=== PATIENT | male | born 1955 ===

== ENCOUNTER 2021-03-08 14:17 | Inpatient (IN) | payer MEDICARE ==
[2021-03-08] MEDS ORDERED: SODIUM CHLORIDE 0.9% 1000 ML 1,000 ML ONE (14:19)
[2021-03-08] MEDS: ETOMIDATE 20 MG/10 ML INJ IV ONE ×2 (14:27→15:00)
[2021-03-08] MEDS ORDERED: cefTRIAXone/NS 1 GM/50 ML 1 GM/50 ML BAG IV ONE (14:33)
[2021-03-08] MEDS ORDERED: ACETAMINOPHEN 650 MG RECT SUPP PR ONE (14:33)
[2021-03-08] MEDS ORDERED: AZITHROMYCIN/NS 500 MG/250 ML 500 MG/250 ML BAG IV ONE (14:33)
[2021-03-08] MEDS ORDERED: MINERAL OIL/PETROLATUM, WHITE OPHTH OINT 3.5 GM OU PRN (14:33)
[2021-03-08] MEDS ORDERED: LIP THERAPY VASELINE TP PRN (14:33)
[2021-03-08] MEDS ORDERED: fentaNYL 100 MCG/2 ML INJ IV PRN (14:33)
[2021-03-08] MEDS ORDERED: dexAMETHasone 4 MG/ML VIAL IV ONE (14:33)
[2021-03-08] MEDS ORDERED: SODIUM CHLORIDE 0.9% 1000 ML IV SOLN IV ONE (14:33)
[2021-03-08] MEDS ORDERED: ROCURONIUM 50 MG/5 ML INJ IV ONE ×2 (14:43→17:51)
[2021-03-08] MEDS ORDERED: ALBUTEROL 2.5 MG/3 ML NEBU IH ONE (14:44)
[2021-03-08] MEDS ORDERED: IPRATROPIUM 0.02% NEBU 2.5 ML IH ONE (14:44)
--- NOTE | 2021-03-08 14:53 | Emergency Department Report ---
ED General Adult HPI - General Chief complaint: Dyspnea/Respdistress Stated complaint: Patient altered PUI?: Yes Time Seen by Provider: 03/08/21 14:32 Source: patient, EMS (Verbal report received from emergency medical services. EMS documentation not available at time of chart dictation ), RN notes reviewed Mode of arrival: Stretcher Limitations: Altered Mental Status, Physical Limitation - History of Present Illness Initial comments: The patient was evaluated in the emergency department for symptoms described in the history of present illness. He/she was evaluated in the context of the global COVID-19 pandemic, which necessitated consideration that the patient might be at risk for infection with the virus that causes COVID-19. Institutional protocols and algorithms that pertain to the evaluation of patients at risk for COVID-19 are in a state of rapid change based on information released by regulatory bodies including the CDC and federal and state organizations. These policies and algorithms were followed during the patient's care in the emergency department. Please note that these policies, procedures and recommendations changed on a rapid basis. During the entire history and physical examination, I had on complete present protective equipment. The patient is an elderly gentleman, whose name is not explicitly known, identity not known at this time, who appears to be of descent, aged mid to late 60s/early 70s, brought to the hospital by emergency medical services with an EMS articulated complaint of altered mental status and respiratory failure. History obtained from EMS entirely as this patient is altered. The patient is not accompanied by friends or family at this time for collateral information or additional information. As per verbal report from EMS, 911 was activated because the patient was reportedly walking around at an apartment complex and neighbors were concerned. It is not known who called t 911. EMS reports a fever of 102.3 temporally, and Accu-Chek of 218. They also report the patient was hypoxic, required rke-udqby-jhjh ventilation in the field, and they felt that the patient had diminished breath sounds in the left hemithorax, and there was a concern for pneumothorax on the left-hand side. Therefore, EMS performed a decompression of the left hemithorax in the field. Upon arrival to this emergency room, EMS placed chest tube/catheter became dislodged. The patient is awake but altered, and has gasping respirations. He is placed on 15 L nasal cannula oxygen, and also received simultaneous txm-skdeu-zfqe ventilation. A stat chest x-ray showed no obvious left-sided pneumothorax. Given altered mental status and respiratory failure, history of hypoxia requiring yon-oxfgi-doeh ventilation, patient not a candidate for noninvasive therapy, and is emergently and administratively consented by myself for intubation. He is induced with 20 mg of etomidate and 100 mg of rocuronium. Using an S4 video laryngoscope, a 7.5 endotracheal tube was easily inserted, under direct visualization. The tube was noted to pass to the trachea easily, he has appropriate breath sounds bilaterally, although diminished in all lung leone, has appropriate end-tidal capnography color change, and a postprocedure x-ray demonstrates appropriate endotracheal tube placement without evidence of obvious pneumothorax. Patient found to be 49 kg, code sepsis called overhead, patient to be medicated empirically with steroids, albuterol, Atrovent, ceftriaxone and azithromycin. suspect this patient has COPD, therefore, diaphragmatic excursion is performed, and excess air has been pushed out of the patient's lungs, to avoid breath stacking. Contacted critical care physician on-call, Dr. Inman, have discussed the patient's current history, physical, overall clinical impression and plan of care. Patient be ventilated according to lung protective ventilator strategy. If CT scan of the chest demonstrates small pneumothorax, we will place a Heimlich valve. Critical care will follow in consultation. At the moment, the patient is not accompanied by friends or family at this time for collateral information, additional information. Blood pressure systolic 105. -: unknown - Related Data Allergies Allergy/AdvReac Type Severity Reaction Status Date / Time Unable to Assess Allergy Verified 03/08/21 14:37 ED Review of Systems ROS: Stated complaint: RESP DISTRESS Other details as noted in HPI Comment: Unobtainable due to pts medical conditions ED Past Medical Hx - Social History Smoking Status: Unknown if ever smoked ED Physical Exam - General Limitations: Altered Mental Status General appearance: lethargic, in distress - Eye Eye exam: Present: normal appearance - ENT ENT exam: Present: mucous membranes dry, normal external ear exam - Neck Neck exam: Present: normal inspection. Absent: tenderness, meningismus - Respiratory Respiratory exam: Present: respiratory distress, rales, rhonchi, accessory muscle use, decreased breath sounds, other (The left anterior hemithorax, mid nipple line, approximately sixth rib, there is a skin abrasion/ecchymosis, where needle catheter has dislodged.). Absent: stridor - Cardiovascular Cardiovascular Exam: Present: normal rhythm, tachycardia, normal heart sounds. Absent: bradycardia, irregular rhythm, systolic murmur, diastolic murmur, rubs, gallop - GI/Abdominal GI/Abdominal exam: Present: soft. Absent: distended, tenderness, guarding, rebound, rigid, pulsatile mass - Rectal Rectal exam: Present: normal inspection - exam: Present: normal inspection - Extremities Exam Extremities exam: Present: normal inspection, other (2+ pulses noted in the bila teral upper and lower extremities. There is no palpable cord. negative Homans sign. Muscular compartments are soft. The pelvis is stable.) - Back Exam Back exam: Present: normal inspection. Absent: tenderness, CVA tenderness (R), CVA tenderness (L), paraspinal tenderness, vertebral tenderness - Neurological Exam Neurological exam: Present: altered, other (Prior to intubation, patient noted to be moving 4 extremities.) - Psychiatric Psychiatric exam: Present: anxious - Skin Skin exam: Present: warm, dry, intact, normal color. Absent: rash ED Course Vital Signs 03/08/21 03/08/21 03/08/21 14:22 14:30 14:46 Temperature Pulse Rate 140 H 114 H Respiratory 29 H 20 Rate Blood Pressure 98/65 184/68 Blood Pressure [Left] O2 Sat by Pulse 96 100 99 Oximetry 03/08/21 03/08/21 03/08/21 15:00 15:06 15:10 Temperature 101.4 F H Pulse Rate 109 H 107 H 122 H Respiratory 19 17 Rate Blood Pressure 190/76 Blood Pressure 189/91 [Left] O2 Sat by Pulse 100 100 100 Oximetry 03/08/21 03/08/21 03/08/21 15:30 15:46 16:10 Temperature Pulse Rate 117 H 108 H 109 H Respiratory 24 19 Rate Blood Pressure 205/81 143/80 143/80 Blood Pressure [Left] O2 Sat by Pulse 100 99 Oximetry 03/08/21 03/08/21 03/08/21 16:16 16:30 16:46 Temperature Pulse Rate 107 H 106 H 106 H Respiratory 20 20 20 Rate Blood Pressure 114/78 120/70 143/80 Blood Pressure [Left] O2 Sat by Pulse 100 100 100 Oximetry 03/08/21 03/08/2121 17:00 17:16 17:30 Temperature Pulse Rate 106 H 101 H 99 H Respiratory 20 20 20 Rate Blood Pressure 113/67 117/76 126/76 Blood Pressure [Left] O2 Sat by Pulse 100 100 100 Oximetry 03/08/21 03/08/21 03/08/21 17:46 18:00 18:16 Temperature Pulse Rate 94 H 96 H 89 Respiratory 20 20 20 Rate Blood Pressure 128/74 121/72 126/76 Blood Pressure [Left] O2 Sat by Pulse 100 100 100 Oximetry 03/08/21 03/08/21 03/08/21 18:30 18:43 18:46 Temperature 98.9 F Pulse Rate 86 84 Respiratory 20 20 Rate Blood Pressure 128/68 138/74 Blood Pressure [Left] O2 Sat by Pulse 100 100 Oximetry 03/08/21 03/08/21 03/08/21 19:00 19:10 19:16 Temperature Pulse Rate 84 83 85 Respiratory 20 20 Rate Blood Pressure 112/63 107/62 Blood Pressure [Left] O2 Sat by Pulse 100 100 100 Oximetry 03/08/21 03/08/21 03/08/21 19:30 19:46 20:00 Temperature Pulse Rate 86 86 86 Respiratory 20 20 20 Rate Blood Pressure 113/61 108/61 109/62 Blood Pressure [Left] O2 Sat by Pulse 100 100 100 Oximetry 03/08/21 03/08/21 03/08/21 21:50 21:54 22:06 Temperature 98.4 F Pulse Rate 86 86 Respiratory Rate Blood Pressure 101/61 Blood Pressure [Left] O2 Sat by Pulse 100 Oximetry - Reevaluation(s) Reevaluation #1: 03/08/21 14:53 Differential diagnosis, including but not limited to: COPD exacerbation, sepsis, bacteremia, viremia, pneumonia, urinary tract infection, toxic encephalopathy metabolic encephalopathy Status post chest tube placement, status post chest tube removal, residual pneumothorax Assessment and plan: Elderly gentleman with acute respiratory failure probable sepsis, manifested by tachycardia, dry mucous membranes, and fever, requiring intubation for airway protection during the COVID-[address] patient on lung protective ventilator strategy. Resuscitate with fluids, steroids, antibiotics as per our sepsis protocol. Maintain patient on isolation precautions, send Covid laboratory studies to risk verify for Covid cytokine storm. Critical care consulted. Obtain CT scan of the brain, cervical spine, and chest. Reassess after data points have resulted. Admit this patient to the medical service once diagnostics have resulted if no condition is identified that would require transfer. 03/08/21 16:47 CT scan of the brain and cervical spine negative for acute traumatic pathology. CT scan of the chest shows multi lobar pneumonia, and small left-sided pneumothorax. Pneumothorax is not visualized on x-ray of the chest, and this is likely secondary to EMS placing catheter in the field. Inflammatory markers, lactic acid elevated, consistent with acute infectious pathology. I have recontacted Dr. Inman, critical care physician, and have discussed the p atient's updated history, laboratory studies, and CT scan findings. Advises that chest tube is not necessary at this time. Hospital physician, Dr. Brian Jacobsen to admit to ICU Incidental AAA of 4.5 cm less than 6 cm may be followed up as an outpatient once medically stabilized. - Intubation Time Out Performed: No (Emergency situation) Sedative: Etomidate Mg Given: 20 Paralytic: Rocuronium Mg Given: 100 Laryngoscope: none Size: 4 Assist Device Used: fiberoptic device ET Tube Size: 7.5 Tube Secured Depth (cm): 23 Tube Secured Location: teeth Tube Placement Confirmation: visualized tube passing t, equal breath sounds bilat, no breath sounds over epi, confirmation by capnometr Patient Tolerated Procedure: well Intubation Complications: none ED Medical Decision Making - Lab Data Result diagrams: 03/09/21 06:18 03/09/21 06:18 Vital Signs 03/08/21 03/08/21 03/08/21 14:22 14:30 14:46 Temperature Pulse Rate 140 H 114 H Respiratory 29 H 20 Rate Blood Pressure 98/65 184/68 Blood Pressure [Left] O2 Sat by Pulse 96 100 99 Oximetry 03/08/21 03/08/21 03/08/21 15:00 15:06 15:30 Temperature 101.4 F H Pulse Rate 109 H 107 H 117 H Respiratory 19 17 24 Rate Blood Pressure 190/76 205/81 Blood Pressure 189/91 [Left] O2 Sat by Pulse 100 100 100 Oximetry 03/08/21 03/08/21 03/08/21 15:46 16:10 16:16 Temperature Pulse Rate 108 H 109 H 107 H Respiratory 19 20 Rate Blood Pressure 143/80 143/80 114/78 Blood Pressure [Left] O2 Sat by Pulse 99 100 Oximetry Lab Results 03/08/21 03/08/21 03/08/21 Range/Units 15:12 15:49 15:49 WBC 8.5 (4.5-11.0) K/mm3 RBC 4.19 (3.65-5.03) M/mm3 Hgb 13.1 (11.8-15.2) gm/dl Hct 39.6 (35.5-45.6) % MCV 95 H (84-94) fl MCH 31 (28-32) pg MCHC 33 (32-34) % RDW 12.8 L (13.2-15.2) % Plt Count 178 (140-440) K/mm3 Lymph % (Auto) 5.1 L (13.4-35.0) % [place] % (Auto) 8.6 H (0.0-7.3) % Eos % (Auto) 0.0 (0.0-4.3) % Baso % (Auto) 0.2 (0.0-1.8) % Lymph # (Auto) 0.4 L (1.2-5.4) K/mm3 [place] # (Auto) 0.7 (0.0-0.8) K/mm3 Eos # (Auto) 0.0 (0.0-0.4) K/mm3 Baso # (Auto) 0.0 (0.0-0.1) K/mm3 Seg Neutrophils % 86.1 H (40.0-70.0) % Seg Neutrophils # 7.3 (1.8-7.7) K/mm3 PT 14.6 (12.2-14.9) Sec. INR 1.09 (0.87-1.13) APTT 37.1 H (24.2-36.6) Sec. D-Dimer 832.06 H (0-234) ng/mlDDU ABG pH 7.478 H (7.350-7.450) pH Units ABG pCO2 43.0 mm Hg ABG pO2 381.9 H (80.0-90.0) mm Hg ABG HCO3 31.2 H (20.0-26.0) mmol/L ABG O2 Saturation 99.6 H (95.0-99.0) % ABG O2 Content 18.9 (0.0-44) ABG Base Excess 6.9 H (-2.0-3.0) mmol/L ABG Hemoglobin 13.0 L (14.0-18.0) gm/dl ABG Carboxyhemoglobin 1.5 (0.0-5.0) % ABG Methemoglobin 0.6 (0.0-1.5) % Oxyhemoglobin 97.5 (95.0-99.0) % FiO2 100 % Sodium (137-145) mmol/L Potassium (3.6-5.0) mmol/L Chloride (98-107) mmol/L Carbon Dioxide (22-30) mmol/L Anion Gap mmol/L BUN (9-20) mg/dL Creatinine (0.8-1.3) mg/dL Estimated GFR ml/min BUN/Creatinine Ratio % Glucose (75-100) mg/dL Lactic Acid (0.7-2.0) mmol/L Calcium (8.4-10.2) mg/dL Ferritin (30.0-300.0) ng/mL Total Bilirubin (0.1-1.2) mg/dL AST (5-40) units/L ALT (7-56) units/L Alkaline Phosphatase (35-129) units/L Ammonia (25-60) umol/L Lactate Dehydrogenase (91-180) units/L C-Reactive Protein (0.00-1.30) mg/dL Total Protein (6.3-8.2) g/dL Albumin (3.9-5) g/dL Albumin/Globulin Ratio % TSH (0.270-4.200) mlU/mL Salicylates (2.8-20.0) mg/dL Acetaminophen (10.0-30.0) ug/mL Blood Type 03/08/21 03/08/21 03/08/21 Range/Units 15:49 15:49 15:49 WBC (4.5-11.0) K/mm3 RBC (3.65-5.03) M/mm3 Hgb (11.8-15.2) gm/dl Hct (35.5-45.6) % MCV (84-94) fl MCH (28-32) pg MCHC (32-34) % RDW (13.2-15.2) % Plt Count (140-440) K/mm3 Lymph % (Auto) (13.4-35.0) % [place] % (Auto) (0.0-7.3) % Eos % (Auto) (0.0-4.3) % Baso % (Auto) (0.0-1.8) % Lymph # (Auto) (1.2-5.4) K/mm3 [place] # (Auto) (0.0-0.8) K/mm3 Eos # (Auto) (0.0-0.4) K/mm3 Baso # (Auto) (0.0-0.1) K/mm3 Seg Neutrophils % (40.0-70.0) % Seg Neutrophils # (1.8-7.7) K/mm3 PT (12.2-14.9) Sec. INR (0.87-1.13) APTT (24.2-36.6) Sec. D-Dimer (0-234) ng/mlDDU ABG pH (7.350-7.450) pH Units ABG pCO2 mm Hg ABG pO2 (80.0-90.0) mm Hg ABG HCO3 (20.0-26.0) mmol/L ABG O2 Saturation (95.0-99.0) % ABG O2 Content (0.0-44) ABG Base Excess (-2.0-3.0) mmol/L ABG Hemoglobin (14.0-18.0) gm/dl ABG Carboxyhemoglobin (0.0-5.0) % ABG Methemoglobin (0.0-1.5) % Oxyhemoglobin (95.0-99.0) % FiO2 % Sodium 134 L (137-145) mmol/L Potassium 4.5 (3.6-5.0) mmol/L Chloride 89.7 L (98-107) mmol/L Carbon Dioxide 32 H (22-30) mmol/L Anion Gap 17 mmol/L BUN 47 H (9-20) mg/dL Creatinine 1.2 (0.8-1.3) mg/dL Estimated GFR 54 ml/min BUN/Creatinine Ratio 39 % Glucose 150 H (75-100) mg/dL Lactic Acid (0.7-2.0) mmol/L Calcium 9.2 (8.4-10.2) mg/dL Ferritin (30.0-300.0) ng/mL Total Bilirubin 0.60 (0.1-1.2) mg/dL AST 24 (5-40) units/L ALT 11 (7-56) units/L Alkaline Phosphatase 54 (35-129) units/L Ammonia 22.0 L (25-60) umol/L Lactate Dehydrogenase (91-180) units/L C-Reactive Protein (0.00-1.30) mg/dL Total Protein 7.3 (6.3-8.2) g/dL Albumin 3.2 L (3.9-5) g/dL Albumin/Globulin Ratio 0.8 % TSH 2.030 (0.270-4.200) mlU/mL Salicylates (2.8-20.0) mg/dL Acetaminophen (10.0-30.0) ug/mL Blood Type 03/08/21 03/08/21 03/08/21 Range/Units 15:49 15:49 15:49 WBC (4.5-11.0) K/mm3 RBC (3.65-5.03) M/mm3 Hgb (11.8-15.2) gm/dl Hct (35.5-45.6) % MCV (84-94) fl MCH (28-32) pg MCHC (32-34) % RDW (13.2-15.2) % Plt Count (140-440) K/mm3 Lymph % (Auto) (13.4-35.0) % [place] % (Auto) (0.0-7.3) % Eos % (Auto) (0.0-4.3) % Baso % (Auto) (0.0-1.8) % Lymph # (Auto) (1.2-5.4) K/mm3 [place] # (Auto) (0.0-0.8) K/mm3 Eos # (Auto) (0.0-0.4) K/mm3 Baso # (Auto) (0.0-0.1) K/mm3 Seg Neutrophils % (40.0-70.0) % Seg Neutrophils # (1.8-7.7) K/mm3 PT (12.2-14.9) Sec. INR (0.87-1.13) APTT (24.2-36.6) Sec. D-Dimer (0-234) ng/mlDDU ABG pH (7.350-7.450) pH Units ABG pCO2 mm Hg ABG pO2 (80.0-90.0) mm Hg ABG HCO3 (20.0-26.0) mmol/L ABG O2 Saturation (95.0-99.0) % ABG O2 Content (0.0-44) ABG Base Excess (-2.0-3.0) mmol/L ABG Hemoglobin (14.0-18.0) gm/dl ABG Carboxyhemoglobin (0.0-5.0) % ABG Methemoglobin (0.0-1.5) % Oxyhemoglobin (95.0-99.0) % FiO2 % Sodium (137-145) mmol/L Potassium (3.6-5.0) mmol/L Chloride (98-107) mmol/L Carbon Dioxide (22-30) mmol/L Anion Gap mmol/L BUN (9-20) mg/dL Creatinine (0.8-1.3) mg/dL Estimated GFR ml/min BUN/Creatinine Ratio % Glucose (75-100) mg/dL Lactic Acid (0.7-2.0) mmol/L Calcium (8.4-10.2) mg/dL Ferritin (30.0-300.0) ng/mL Total Bilirubin (0.1-1.2) mg/dL AST (5-40) units/L ALT (7-56) units/L Alkaline Phosphatase (35-129) units/L Ammonia (25-60) umol/L Lactate Dehydrogenase (91-180) units/L C-Reactive Protein (0.00-1.30) mg/dL Total Protein (6.3-8.2) g/dL Albumin (3.9-5) g/dL Albumin/Globulin Ratio % TSH (0.270-4.200) mlU/mL Salicylates 5.6 (2.8-20.0) mg/dL Acetaminophen 5.0 L (10.0-30.0) ug/mL Blood Type B POSITIVE 03/08/21 03/08/21 03/08/21 Range/Units 15:49 15:49 15:49 WBC (4.5-11.0) K/mm3 RBC (3.65-5.03) M/mm3 Hgb (11.8-15.2) gm/dl Hct (35.5-45.6) % MCV (84-94) fl MCH (28-32) pg MCHC (32-34) % RDW (13.2-15.2) % Plt Count (140-440) K/mm3 Lymph % (Auto) (13.4-35.0) % [place] % (Auto) (0.0-7.3) % Eos % (Auto) (0.0-4.3) % Baso % (Auto) (0.0-1.8) % Lymph # (Auto) (1.2-5.4) K/mm3 [place] # (Auto) (0.0-0.8) K/mm3 Eos # (Auto) (0.0-0.4) K/mm3 Baso # (Auto) (0.0-0.1) K/mm3 Seg Neutrophils % (40.0-70.0) % Seg Neutrophils # (1.8-7.7) K/mm3 PT (12.2-14.9) Sec. INR (0.87-1.13) APTT (24.2-36.6) Sec. D-Dimer (0-234) ng/mlDDU ABG pH (7.350-7.450) pH Units ABG pCO2 mm Hg ABG pO2 (80.0-90.0) mm Hg ABG HCO3 (20.0-26.0) mmol/L ABG O2 Saturation (95.0-99.0) % ABG O2 Content (0.0-44) ABG Base Excess (-2.0-3.0) mmol/L ABG Hemoglobin (14.0-18.0) gm/dl ABG Carboxyhemoglobin (0.0-5.0) % ABG Methemoglobin (0.0-1.5) % Oxyhemoglobin (95.0-99.0) % FiO2 % Sodium (137-145) mmol/L Potassium (3.6-5.0) mmol/L Chloride (98-107) mmol/L Carbon Dioxide (22-30) mmol/L Anion Gap mmol/L BUN (9-20) mg/dL Creatinine (0.8-1.3) mg/dL Estimated GFR ml/min BUN/Creatinine Ratio % Glucose 150 H (75-100) mg/dL Lactic Acid 3.40 H* (0.7-2.0) mmol/L Calcium (8.4-10.2) mg/dL Ferritin 1373.0 H (30.0-300.0) ng/mL Total Bilirubin (0.1-1.2) mg/dL AST (5-40) units/L ALT (7-56) units/L Alkaline Phosphatase (35-129) units/L Ammonia (25-60) umol/L Lactate Dehydrogenase 209 H (91-180) units/L C-Reactive Protein 24.00 H (0.00-1.30) mg/dL Total Protein (6.3-8.2) g/dL Albumin (3.9-5) g/dL Albumin/Globulin Ratio % TSH (0.270-4.200) mlU/mL Salicylates (2.8-20.0) mg/dL Acetaminophen (10.0-30.0) ug/mL Blood Type - EKG Data -: EKG Interpreted by Hi Rate: tachycardia - EKG Data When compared to previous EKG there are: previous EKG unavailable 03/08/21 14:56 EKG #1, interpreted at 14: 41 Sinus rhythm, tachycardia, rate 119 bpm. QTC prolonged, 470 ms, atrial enlargement, and left ventricular hypertrophy. Abnormal EKG. Not a STEMI. - Radiology Data Radiology results: pending, report reviewed, image reviewed CT HEAD WITHOUT CONTRAST INDICATION / CLINICAL INFORMATION: Altered Mental Status. TECHNIQUE: All CT scans at this location are performed using CT dose reduction for ALARA by means of automated exposure control. COMPARISON: None available. FINDINGS: HEMORRHAGE: No evidence of intracranial hemorrhage or extra-axial fluid collection. EXTRA-AXIAL SPACES: Cortical sulci, sylvian fissures and basilar cisterns have an unremarkable appearance. VENTRICULAR SYSTEM: The third and lateral ventricles are of normal size and configuration. CEREBRAL PARENCHYMA: No areas of abnormal brain parenchymal attenuation are identified. There is no indication of recent infarction. MIDLINE SHIFT OR HERNIATION: There is no mass effect. CEREBELLUM / BRAINSTEM: Brainstem and cerebellum have an unremarkable appearance. MIDLINE STRUCTURES:No abnormalities of the pituitary gland or pineal region are identified. INTRACRANIAL VESSELS: Calcified atherosclerotic plaque is seen along the course the cavernous segments of both internal carotid arteries. Similar findings were present at the distal vertebral arteries. ORBITS: visualized portions of the orbits have an unremarkable appearance. SOFT TISSUES of HEAD: No significant abnormality. CALVARIUM: Evaluation of bone windows reveals no abnormalities. PARANASAL SINUSES / MASTOID AIR CELLS: Inflammatory changes are present within ethmoid air cells bilaterally. Paranasal sinuses otherwise appear clear. ADDITIONAL FINDINGS: Orotracheal tube and nasogastric tube are demonstrated. IMPRESSION: 1. Advanced intracranial atherosclerotic disease with extensive calcification along the course of the internal carotid arteries and distal vertebral arteries. 2. No acute intracranial abnormality identified. Signer Name: Lazaro Aguilar MD Signed: 03/08/2021 3:23 PM Workstation Name: [id number] CHEST 1 VIEW 2:14 PM INDICATION: ETT placement. COMPARISON: Earlier today FI NDINGS: Support devices: Endotracheal tube has been placed in satisfactory position approximately 3 cm above the josé luis. Esophagogastric tube extends below the edge of the image in the abdomen. Heart: Stable. Lungs/Pleura: Bilateral pulmonary opacities persist. There is a small left pleural effusion. No pneumothorax. IMPRESSION: 1. Support devices in satisfactory position. Otherwise, no change since the exam earlier today. Signer Name: Chadd Garner MD Signed: 03/08/2021 2:16 PM Workstation Name: [id number] CT CERVICAL SPINE WITHOUT CONTRAST INDICATION / CLINICAL INFORMATION: Altered mental status acute respiratory. TECHNIQUE: Axial CT images were obtained through the cervical spine. Sagittal and coronal reformatted images were produced. All CT scans at this location are performed using CT dose reduction for ALARA by means of automated exposure control. COMPARISON: None available. FINDINGS: ALIGNMENT: No significant abnormality. VERTEBRAE: No significant abnormality. DISC SPACES: Loss of disc height is noted at the C4-5, C5-6 and C6-7 levels DEGENERATIVE CHANGES: Anterior and posterior osteophyte formation are observed at C4-5, C5-6 and C6-7 levels. Uncovertebral arthropathy is observed at these same levels. Bilateral facet arthritic changes are noted. Multifocal neuroforaminal stenosis is evident. Central spinal canal appears to be adequately maintained. CRANIOCERVICAL JUNCTION:No significant abnormality. SPINAL CANAL: Central spinal canal is adequately maintained throughout. PARASPINAL SOFT TISSUES: No significant abnormality. ADDITIONAL FINDINGS: None. LUNG APICES: A small left apical pneumothorax is noted. Please refer to CT chest dictated separately. IMPRESSION: 1. No indication of fracture or traumatic subluxation. 2. Widespread cervical spondylosis. 3. Small left apical pneumothorax. Signer Name: Lazaro Aguilar MD Signed: 03/08/2021 3:28 PM Work station Name: [id number] CHEST 1 VIEW, 1404 hours INDICATION / CLINICAL INFORMATION: resp failure. COMPARISON: None available. FINDINGS: SUPPORT DEVICES: None. HEART / MEDIASTINUM: No significant abnormality. LUNGS / PLEURA: Bilateral pulmonary opacities are present bilaterally especially in both lung bases. Whether this is due to aspiration pneumonia or Covid pneumonia is unclear. Mild interstitial prominence bilaterally and diffusely. No pneumothorax. ADDITIONAL FINDINGS: No significant additional findings. IMPRESSION: 1. Bibasilar pulmonary opacities. Most likely etiology is pneumonia. This could represent aspiration pneumonia or bacterial/viral pneumonia. Signer Name: Naya Mckeon MD Signed: 03/08/2021 2:17 PM Workstation Name: [id number]. CHEST 1 VIEW, 1414 hours INDICATION / CLINICAL INFORMATION: resp failure. COMPARISON: Chest radiograph today performed at 1404 hours FINDINGS: SUPPORT DEVICES: There has been interval placement of NG tube. The tip is not included on the radiograph but is at least within the proximal stomach. Additionally, ET tube has been placed. The tip is 5 cm from the josé luis and appears to be in appropriate position. HEART / MEDIAST INUM: No significant abnormality. LUNGS / PLEURA: Bibasilar pulmonary opacities are again noted. No pneumothorax. ADDITIONAL FINDINGS: No significant additional findings. IMPRESSION: 1. Satisfactory positioning of ET tube. 2. NG tube tip is at least within the proximal stomach but the tip is not included and therefore not identified. 3. Prominent bibasilar pulmonary opacities most likely representing pneumonia. Signer Name: Naya Mckeon MD Signed: 03/08/2021 2:19 PM Workstation Name: [id number] CT chest wo con INDICATION / CLINICAL INFORMATION: acute resp failure. TECHNIQUE: Axial CT imaging of the chest was obtained without contrast. Coronal and sagittal reformatted imaging obtained and reviewed. All CT scans at this location are performed using CT dose reduction for ALARA by means of automated exposure control. COMPARISON: Chest radiograph earlier today. FINDINGS: CT chest without contrast was obtained. ET tube is present and in satisfactory position. NG tube is present, although the tip is excluded from the CT. The tip is at least within the proximal stomach. There is large amount calcific plaque throughout the visualized thoracic aorta. On the very last image obtained in the upper abdomen, there is the beginning of an abdominal aortic aneurysm. It is incompletely visualized so the exact size is unknown. However, the size of the AAA visualized is 4.4 x 4.3 cm. Heart size is grossly normal. No pericardial effusion. There is significant airspace disease throughout the dependent portion of both lower lobes with air bronchograms. Smaller opacities are seen th roughout the superior aspects of both lower lobes. The appearance is consistent with pneumonia involving both lower lobes. There is no significant pleural effusion noted. There is a very small left pneumothorax present. Visualized upper abdomen demonstrates large amount of calcific plaque throughout the visualized aorta. No other significant finding within the visualized upper abdomen. No fractures are identified. Mild spondylitic change noted. IMPRESSION: 1. Extensive airspace disease throughout both lower lobes, with the appearance more suggestive of bacterial pneumonia rather than Covid type pneumonia. 2. Tiny left pneumothorax. 3. On the last image obtained for this exam, there is the beginning of an abdominal aortic aneurysm visualized. It is incompletely visualized but at least measures 4.4 x 4.3 cm. CRITICAL RESULT: Time of Discovery: 1535 hours Time of Communication: 1544 hours Licensed Practitioner Receiving Report: Dr. Blanc Read Back Performed: Yes. Signer Name: Naya Mckeon MD Signed: 03/08/2021 3:43 PM Workstation Name: [id number] Critical Care Time: Yes Critical care time in (mins) excluding proc time.: 45 Critical care attestation.: If time is entered above; I have spent that time in minutes in the direct care of this critically ill patient, excluding procedure time. ED Disposition Clinical Impression: Sepsis, Suspected COVID-19 virus infection, Acute respiratory failure, Acute encephalopathy, Dehydration Disposition: OP ADMIT IP TO THIS HOSP Is pt being admited?: Yes Does the pt Need Aspirin: No Condition: Critical
[2021-03-08] MEDS ORDERED: MIDAZOLAM 100 MG in SODIUM CHLORIDE 0.9% 80 ML IV SCH (15:00)
--- NOTE | 2021-03-08 15:21 | XRay Report ---
CHEST 1 VIEW 2:14 PM INDICATION: ETT placement. COMPARISON: Earlier today FINDINGS: Support devices: Endotracheal tube has been placed in satisfactory position approximately 3 cm above the josé luis. Esophagogastric tube extends below the edge of the image in the abdomen. Heart: Stable. Lungs/Pleura: Bilateral pulmonary opacities persist. There is a small left pleural effusion. No pneum othorax. IMPRESSION: 1. Support devices in satisfactory position. Otherwise, no change since the exam earlier today. Signer Name: Chadd Garner MD Signed: 03/08/2021 3:16 PM Workstation Name: [id number]
[2021-03-08 15:24] LABS: ABG Base Excess 6.9 mmol/L (-2.0-3.0); ABG HCO3 31.2 mmol/L (20.0-26.0); ABG Methemoglobin 0.6 % (0.0-1.5); ABG Oxygen Saturation 99.6 % (95.0-99.0); ABG PH 7.478 pH Units (7.350-7.450)
--- NOTE | 2021-03-08 15:24 | XRay Report ---
CHEST 1 VIEW, 1404 hours INDICATION / CLINICAL INFORMATION: resp failure. COMPARISON: None available. FINDINGS: SUPPORT DEVICES: None. HEART / MEDIASTINUM: No significant abnormality. LUNGS / PLEURA: Bilateral pulmonary opacities are present bilaterally especially in both lung bases. Whether this is due to aspiration pneumonia or Covid pneumonia is unclear. Mild interstitial prominen ce bilaterally and diffusely. No pneumothorax. ADDITIONAL FINDINGS: No significant additional findings. IMPRESSION: 1. Bibasilar pulmonary opacities. Most likely etiology is pneumonia. This could represent aspiration pneumonia or bacterial/viral pneumonia. Signer Name: Naya Mckeon MD Signed: 03/08/2021 3:17 PM Workstation Name: [email or web address]. CHEST 1 VIEW, 1414 hours INDICATION / CLINICAL INFORMATION: resp failure. COMPARISON: Chest radiograph today performed at 1404 hours FINDINGS: SUPPORT DEVICES: There has been interval placement of NG tube. The tip is not included on the radiogr aph but is at least within the proximal stomach. Additionally, ET tube has been placed. The tip is 5 cm from the josé luis and appears to be in appropriate position. HEART / MEDIASTINUM: No significant abnormality. LUNGS / PLEURA: Bibasilar pulmonary opacities are again noted. No pneumothorax. ADDITIONAL FINDINGS: No significant additional findings. IMPRESSION: 1. Satisfactory positioning of ET tube. 2. NG tube tip is at least within the proximal stomach but the tip is not included and therefore not identified. 3. Prominent bibasilar pulmonary opacities most likely representing pneumonia. Signer Name: Naya Mckeon MD Signed: 03/08/2021 3:19 PM Workstation Name: [id number]
[2021-03-08] MEDS: fentaNYL DRIP Premix 2,000 MCG/100 ML BAG IV SCH (15:37)
[2021-03-08 15:44] LABS: ABG PO2 381.9 mm Hg (80.0-90.0)
[2021-03-08 16:07] LABS: Basophils % (Auto) 0.2 % (0.0-1.8); Hematocrit 39.6 % (35.5-45.6); Hemoglobin 13.1 gm/dl (11.8-15.2); Lymphocytes # (Auto) 0.4 K/mm3 (1.2-5.4); Lymphocytes % (Auto) 5.1 % (13.4-35.0); Mean Corpuscular HGB Conc 33 % (32-34); Mean Corpuscular Volume 95 fl (84-94); Monocytes # (Auto) 0.7 K/mm3 (0.0-0.8); Monocytes % (Auto) 8.6 % (0.0-7.3); Platelet Count 178 K/mm3 (140-440); Red Blood Count 4.19 M/mm3 (3.65-5.03); Red Cell Distribution Width 12.8 % (13.2-15.2)
[2021-03-08 16:17] LABS: INR 1.09 (0.87-1.13)
[2021-03-08 16:18] LABS: Partial Thromboplastin Time 37.1 Sec. (24.2-36.6)
--- NOTE | 2021-03-08 16:27 | Cat Scan Report ---
CT HEAD WITHOUT CONTRAST INDICATION / CLINICAL INFORMATION: Altered Mental Status. TECHNIQUE: All CT scans at this location are performed using CT dose reduction for ALARA by means of automated e xposure control. COMPARISON: None available. FINDINGS: HEMORRHAGE: No evidence of intracranial hemorrhage or extra-axial fluid collection. EXTRA-AXIAL SPACES: Cortical sulci, sylvian fissures and basilar cisterns have an unremarkable appear ance. VENTRICULAR SYSTEM: The third and lateral ventricles are of normal size and configuration. CEREBRAL PARENCHYMA: No areas of abnormal brain parenchymal attenuation are identified. There is no i ndication of recent infarction. MIDLINE SHIFT OR HERNIATION: There is no mass effect. CEREBELLUM / BRAINSTEM: Brainstem and cerebellum have an unremarkable appearance. MIDLINE STRUCTURES:No abnormalities of the pituitary gland or pineal region are identified. INTRACRANIAL VESSELS: Calcified atherosclerotic plaque is seen along the course the cavernous segment s of both internal carotid arteries. Similar findings were present at the distal vertebral arteries. ORBITS: visualized portions of the orbits have an unremarkable appearance. SOFT TISSUES of HEAD: No significant abnormality. CALVARIUM: Evaluation of bone windows reveals no abnormalities. PARANASAL SINUSES / MASTOID AIR CELLS: Inflammatory changes are present within ethmoid air cells bila terally. Paranasal sinuses otherwise appear clear. ADDITIONAL FINDINGS: Orotracheal tube and nasogastric tube are demonstrated. IMPRESSION: 1. Advanced intracranial atherosclerotic disease with extensive calcification along the course of the internal carotid arteries and distal vertebral arteries. 2. No acute intracranial abnormality identified. Signer Name: Lazaro Aguilar MD Signed: 03/08/2021 4:23 PM Workstation Name: [id number]
[2021-03-08 16:29] LABS: Albumin 3.2 g/dL (3.9-5); Calcium 9.2 mg/dL (8.4-10.2)
--- NOTE | 2021-03-08 16:33 | Cat Scan Report ---
CT CERVICAL SPINE WITHOUT CONTRAST INDICATION / CLINICAL INFORMATION: Altered mental status acute respiratory. TECHNIQUE: Axial CT images were obtained through the cervical spine. Sagittal and coronal reformatted images wer e produced. All CT scans at this location are performed using CT dose reduction for ALARA by means of automated exposure control. COMPARISON: None available. FINDINGS: ALIGNMENT: No significant abnormality. VERTEBRAE: No significant abnormality. DISC SPACES: Loss of disc height is noted at the C4-5, C5-6 and C6-7 levels DEGENERATIVE CHANGES: Anterior and posterior osteophyte formation are observed at C4-5, C5-6 and C6-7 levels. Uncovertebral arthropathy is observed at these same levels. Bilateral facet arthritic change s are noted. Multifocal neuroforaminal stenosis is evident. Central spinal canal appears to be adequa tely maintained. CRANIOCERVICAL JUNCTION:No significant abnormality. SPINAL CANAL: Central spinal canal is adequately maintained throughout. PARASPINAL SOFT TISSUES: No significant abnormality. ADDITIONAL FINDINGS: None. LUNG APICES: A small left apical pneumothorax is noted. Please refer to CT chest dictated separately. IMPRESSION: 1. No indication of fracture or traumatic subluxation. 2. Widespread cervical spondylosis. 3. Small left apical pneumothorax. Signer Name: Lazaro Aguilar MD Signed: 03/08/2021 4:28 PM Workstation Name: [id number]
--- NOTE | 2021-03-08 16:48 | Cat Scan Report ---
CT chest wo con INDICATION / CLINICAL INFORMATION: acute resp failure. TECHNIQUE: Axial CT imaging of the chest was obtained without contrast. Coronal and sagittal reformatted imaging obtained and reviewed. All CT scans at this location are performed using CT dose reduction for ALAR A by means of automated exposure control. COMPARISON: Chest radiograph earlier today. FINDINGS: CT chest without contrast was obtained. ET tube is present and in satisfactory position. NG tube is p resent, although the tip is excluded from the CT. The tip is at least within the proximal stomach. There is large amount calcific plaque throughout the visualized thoracic aorta. On the very last imag e obtained in the upper abdomen, there is the beginning of an abdominal aortic aneurysm. It is incomp letely visualized so the exact size is unknown. However, the size of the AAA visualized is 4.4 x 4.3 cm. Heart size is grossly normal. No pericardial effusion. There is significant airspace disease throughout the dependent portion of both lower lobes with air b ronchograms. Smaller opacities are seen throughout the superior aspects of both lower lobes. The appe arance is consistent with pneumonia involving both lower lobes. There is no significant pleural effus ion noted. There is a very small left pneumothorax present. Visualized upper abdomen demonstrates large amount of calcific plaque throughout the visualized aorta . No other significant finding within the visualized upper abdomen. No fractures are identified. Mild spondylitic change noted. IMPRESSION: 1. Extensive airspace disease throughout both lower lobes, with the appearance more suggestive of violet terial pneumonia rather than Covid type pneumonia. 2. Tiny left pneumothorax. 3. On the last image obtained for this exam, there is the beginning of an abdominal aortic aneurysm v isualized. It is incompletely visualized but at least measures 4.4 x 4.3 cm. CRITICAL RESULT: Time of Discovery: 1535 hours Time of Communication: 1544 hours Licensed Practitioner Receiving Report: Dr. Blanc Read Back Performed: Yes. Signer Name: Naya Mckeon MD Signed: 03/08/2021 4:43 PM Workstation Name: [id number]
[2021-03-08] MEDS ORDERED: SODIUM CHLORIDE 0.9% 1000 ML 1,000 ML IV ONE (16:49)
[2021-03-08 17:15] LABS: Bacteria,Urine 1+ /HPF (Negative); Bilirubin,Urine NEG (Negative); Blood,Urine MOD (Negative); Color,Urine Amber (Yellow); Hyaline Casts,Urine 1 /LPF; Mucus,Urine FEW /HPF; Urobilinogen,Urine < 2.0 mg/dL (<2.0)
[2021-03-08] MEDS ORDERED: ETOMIDATE 20 MG/10 ML INJ IV ONE (17:50)
[2021-03-08] MEDS ORDERED: HYDROmorphone 1 MG/1 ML INJ IV PRN (21:36)
[2021-03-08] MEDS ORDERED: METOCLOPRAMIDE 10 MG/2 ML INJ IV PRN (21:36)
[2021-03-08] MEDS ORDERED: ONDANSETRON 4 MG/2 ML INJ IV PRN (21:36)
[2021-03-08] MEDS ORDERED: ACETAMINOPHEN 325 MG TAB PO PRN (21:36)
[2021-03-08] MEDS ORDERED: MORPHINE 2 MG/1 ML INJ IV PRN (21:36)
[2021-03-08] MEDS ORDERED: SODIUM BICARBONATE 325 MG TAB FEEDTUBE PRN (21:42)
[2021-03-08] MEDS ORDERED: LIPASE 10,500/PROTEASE 25,000/AMYLASE 43,750 (UNITS) DR CAP FEEDTUBE PRN (21:42)
[2021-03-08] MEDS ORDERED: SIMPLE SYRUP 15 ML FEEDTUBE PRN ×2 (21:42)
--- NOTE | 2021-03-08 21:46 | History and Physical Report ---
History of Present Illness Date of examination: 03/08/21 Date of admission: 03/08/21 18:24 Chief complaint: Fever and shortness of breath for unknown time period. History of present illness: 65-year-old male located within [facility] by EMS for altered mental s tatus and respiratory failure. As per EMS 911 was activated and the patient was reportedly walking around the apartment complex and neighbors were concerned and 911 was called. On EMS arrival patient had a temperature 102.3 and Accu-Chek of 218. Patient was also severely hypoxic and required [id number] ventilation mask ventilation. EMS also felt the patient had diminished breath sounds in the left side and there was a concern for pneumothorax on the left side. EMS performed a decompression of the left hemothorax and extremity. Upon arrival to the emergency room EMS placed the chest tube/catheter became dislodged. The patient was awake but altered and was having gasping respirations. Patient was placed on 15 L nasal cannula oxygen and also received bagging mask ventilation. Stat chest x-ray showed no obvious left-sided pneumothorax. Given altered mental status and respiratory failure with history of hypoxia patient was intubated by the ED physician. Code sepsis was called and the patient was treated empirically with steroids and duo nebs and ceftriaxone and azithromycin. No family at bedside. Past History Past Medical History: other (Past medical history not known) Past Surgical History: Other (Not known) Social history: full code Family history: hypertension Medications and Allergies Allergies Allergy/AdvReac Type Severity Reaction Status Date / Time Unable to Assess Allergy Verified 03/08/21 14:37 Active Meds: Active Medications Acetaminophen (Acetaminophen 325 Mg Tab) 650 mg PO Q4H PRN PRN Reason: Pain MILD(1-3)/Fever >100.5/MYERS Lipase/Protease/Amylase (Lipase 10,500/Protease 25,000/Amylase 43,750 (Units) Dr Johnson) 1 each FEEDTUBE PRN PRN PRN Reason: For Clogged Feeding Tube Famotidine (Famotidine 20 Mg/2 Ml Inj) 20 mg IV BID PRINCESS Fentanyl (Fentanyl 100 Mcg/2 Ml Inj) 50 mcg IV Q10MIN PRN PRN Reason: ANALGESIA Heparin Sodium (Porcine) (Heparin 5,000 Unit/1 Ml Vial) 5,000 unit SUB-Q Q12HR PRINCESS Hydromorphone HCl (Hydromorphone 1 Mg/1 Ml Inj) 0.5 mg IV Q3H PRN PRN Reason: Pain , Severe (7-10) Hydrophilic Ointment (Lip Therapy Vaseline) 1 applic TP Q2HR PRN PRN Reason: Dry Lips Fentanyl Citrate (Fentanyl Drip Premix) 2,000 mcg in 100 mls @ 2.472 mls/hr IV TITR PRINCESS; Protocol Last Admin: 03/08/21 15:37 Dose: 1 mcg/kg/hr, 2.472 mls/hr Documented by: Midazolam HCl 100 mg/ Sodium (Chloride) 100 mls @ 2 mls/hr IV TITR PRINCESS; Protocol Last Titration: 03/08/21 16:37 Dose: 4 mg/hr, 4 mls/hr Documented by: Sodium Chloride (Nacl 0.9% 1000 Ml) 1,000 mls @ 100 mls/hr IV DIRECT PRINCESS Metoclopramide HCl (Metoclopramide 10 Mg/2 Ml Inj) 10 mg IV Q6H PRN PRN Reason: Nausea And Vomiting Midazolam HCl (Midazolam 2 Mg/2 Ml Inj) 2 mg IV Q10MIN PRN PRN Reason: Sedation Morphine Sulfate (Morphine 2 Mg/1 Ml Inj) 2 mg IV Q4H PRN PRN Reason: Pain, Moderate (4-6) Multi-Ingred Cream/Lotion/Oil/Oint (Mineral Oil/Petrolatum, White Ophth Oint 3.5 Gm) 1 applic OU Q4HR PRN PRN Reason: Dry Eye(s) Ondansetron HCl (Ondansetron 4 Mg/2 Ml Inj) 4 mg IV Q3H PRN PRN Reason: Nausea And Vomiting Senna/Docusate Sodium (Sennosides/Docusate Sodium 8.6/50 Mg Tab) 1 tab FEEDTUBE BID PRINCESS Simple Syrup (Simple Syrup 15 Ml) 15 ml FEEDTUBE PRN PRN PRN Reason: Hypoglycemia Simple Syrup (Simple Syrup 15 Ml) 30 ml FEEDTUBE PRN PRN PRN Reason: Hypoglycemia Sodium Bicarbonate (Sodium Bicarbonate 325 Mg Tab) 325 mg FEEDTUBE PRN PRN PRN Reason: For Clogged Feeding Tube Sodium Chloride (Sodium Chloride 0.9% 10 Ml Flush Syringe) 10 ml IV BID PRINCESS Sodium Chloride (Sodium Chloride 0.9% 10 Ml Flush Syringe) 10 ml IV PRN PRN PRN Reason: LINE FLUSH Review of Systems All systems: negative Constitutional: fever, fatigue, no weight loss, no weight gain Ears, nose, mouth and throat: no ear pain, no ear discharge, no tinnitis, no decreased hearing Cardiovascular: shortness of breath, dyspnea on exertion Respiratory: cough, shortness of breath, dyspnea on exertion, congestion, wheezing Gastrointestinal: no abdominal pain, no nausea, no vomiting Genitourinary Male: no dysuria, no hematuria, no flank pain Rectal: no pain Musculoskeletal: no neck stiffness, no neck pain, no shooting arm pain, no arm numbness/tingling Integumentary: no rash, no pruritis, no redness, no sores, no wounds Neurological: no head injury, no paralysis, no weakness, no parathesias, no sei zures Psychiatric: no anxiety, no memory loss, no change in sleep habits, no sleep disturbances Endocrine: no cold intolerance, no heat intolerance, no polyphagia, no excessive thirst Hematologic/Lymphatic: no easy bruising, no easy bleeding Allergic/Immunologic: no urticaria, no allergic rhinitis, no wheezing Exam - Physical Exam Narrative exam: Patient was intubated and on vent with a low PEEP - Constitutional Vitals: Temp Pulse Resp BP Pulse Ox 98.9 F 83 20 128/68 100 03/08/21 18:43 03/08/21 19:10 03/08/21 18:30 03/08/21 18:30 03/08/21 19:10 General appearance: Present: severe distress, well-nourished - EENT Eyes: Present: PERRL ENT: hearing intact, clear oral mucosa - Neck Neck: Present: supple, normal ROM - Respiratory Respiratory effort: normal Respiratory: bilateral: CTA, rhonchi, wheezing - Cardiovascular Heart rate: 78 Rhythm: regular Heart Sounds: Present: S1 & S2. Absent: rub, click - Extremities Extremities: no ischemia, pulses intact, pulses symmetrical, No edema Peripheral Pulses: within normal limits - Abdominal General gastrointestinal: Present: soft, non-tender, non-distended, normal bowel sounds Male genitourinary: Present: normal - Integumentary Integumentary: Present: clear, warm, dry - Musculoskeletal Musculoskeletal: generalized weakness - Psychiatric Psychiatric: other (Patient intubated) - Neurologic Neurologic: other (Patient intubated) - Allied Health Allied health notes reviewed: nursing, RT, social work, case management HEART Score - HEART Score History: Highly suspicious Age: > 65 Risk factors: No known risk factors Troponin: < normal limit - Critical Actions Critical Actions: 0-3 pts:0.9-1.7%risk of adverse cardiac event.Candidate for discharge Results - Labs CBC & Chem 7: 03/09/21 06:18 03/09/21 06:18 Labs: Laboratory Last Values WBC 8.5 K/mm3 (4.5-11.0) 03/08/21 15:49 RBC 4.19 M/mm3 (3.65-5.03) 03/08/21 15:49 Hgb 13.1 gm/dl (11.8-15.2) 03/08/21 15:49 Hct 39.6 % (35.5-45.6) 03/08/21 15:49 MCV 95 fl (84-94) H 03/08/21 15:49 MCH 31 pg (28-32) 03/08/21 15:49 MCHC 33 % (32-34) 03/08/21 15:49 RDW 12.8 % (13.2-15.2) L 03/08/21 15:49 Plt Count 178 K/mm3 (140-440) 03/08/21 15:49 Lymph % (Auto) 5.1 % (13.4-35.0) L 03/08/21 15:49 Faulk % (Auto) 8.6 % (0.0-7.3) H 03/08/21 15:49 Eos % (Auto) 0.0 % (0.0-4.3) 03/08/21 15:49 Baso % (Auto) 0.2 % (0.0-1.8) 03/08/21 15:49 Lymph # (Auto) 0.4 K/mm3 (1.2-5.4) L 03/08/21 15:49 Faulk # (Auto) 0.7 K/mm3 (0.0-0.8) 03/08/21 15:49 Eos # (Auto) 0.0 K/mm3 (0.0-0.4) 03/08/21 15:49 Baso # (Auto) 0.0 K/mm3 (0.0-0.1) 03/08/21 15:49 Seg Neutrophils % 86.1 % (40.0-70.0) H 03/08/21 15:49 Seg Neutrophils # 7.3 K/mm3 (1.8-7.7) 03/08/21 15:49 PT 14.6 Sec. (12.2-14.9) 03/08/21 15:49 INR 1.09 (0.87-1.13) 03/08/21 15:49 APTT 37.1 Sec. (24.2-36.6) H 03/08/21 15:49 D-Dimer 832.06 ng/mlDDU (0-234) H 03/08/21 15:49 ABG pH 7.478 pH Units (7.350-7.450) H 03/08/21 15:12 ABG pCO2 43.0 mm Hg 03/08/21 15:12 ABG pO2 381.9 mm Hg (80.0-90.0) H 03/08/21 15:12 ABG HCO3 31.2 mmol/L (20.0-26.0) H 03/08/21 15:12 ABG O2 Saturation 99.6 % (95.0-99.0) H 03/08/21 15:12 ABG O2 Content 18.9 (0.0-44) 03/08/21 15:12 ABG Base Excess 6.9 mmol/L (-2.0-3.0) H 03/08/21 15:12 ABG Hemoglobin 13.0 gm/dl (14.0-18.0) L 03/08/21 15:12 ABG Carboxyhemoglobin 1.5 % (0.0-5.0) 03/08/21 15:12 ABG Methemoglobin 0.6 % (0.0-1.5) 03/08/21 15:12 Oxyhemoglobin 97.5 % (95.0-99.0) 03/08/21 15:12 FiO2 100 % 03/08/21 15:12 Sodium 134 mmol/L (137-145) L 03/08/21 15:49 Potassium 4.5 mmol/L (3.6-5.0) 03/08/21 15:49 Chloride 89.7 mmol/L (98-107) L 03/08/21 15:49 Carbon Dioxide 32 mmol/L (22-30) H 03/08/21 15:49 Anion Gap 17 mmol/L 03/08/21 15:49 BUN 47 mg/dL (9-20) H 03/08/21 15:49 Creatinine 1.2 mg/dL (0.8-1.3) 03/08/21 15:49 Estimated GFR 54 ml/min 03/08/21 15:49 BUN/Creatinine Ratio 39 % 03/08/21 15:49 Glucose 150 mg/dL (75-100) H 03/08/21 15:49 Glucose 150 mg/dL (75-100) H 03/08/21 15:49 Lactic Acid 3.40 mmol/L (0.7-2.0) H* 03/08/21 15:49 Calcium 9.2 mg/dL (8.4-10.2) 03/08/21 15:49 Ferritin 1373.0 ng/mL (30.0-300.0) H 03/08/21 15:49 Total Bilirubin 0.60 mg/dL (0.1-1.2) 03/08/21 15:49 AST 24 units/L (5-40) 03/08/21 15:49 ALT 11 units/L (7-56) 03/08/21 15:49 Alkaline Phosphatase 54 units/L (35-129) 03/08/21 15:49 Ammonia 22.0 umol/L (25-60) L 03/08/21 15:49 Lactate Dehydrogenase 209 units/L (91-180) H 03/08/21 15:49 Total Creatine Kinase 52 units/L (55-170) L 03/08/21 15:49 C-Reactive Protein 24.00 mg/dL (0.00-1.30) H 03/08/21 15:49 Total Protein 7.3 g/dL (6.3-8.2) 03/08/21 15:49 Albumin 3.2 g/dL (3.9-5) L 03/08/21 15:49 Albumin/Globulin Ratio 0.8 % 03/08/21 15:49 TSH 2.030 mlU/mL (0.270-4.200) 03/08/21 15:49 Urine Color Maren (Yellow) 03/08/21 16:54 Urine Turbidity Cloudy (Clear) 03/08/21 16:54 Urine pH 5.0 (5.0-7.0) 03/08/21 16:54 Ur Specific [place] 1.019 (1.003-1.030) 03/08/21 16:54 Urine Protein 100 mg/dl mg/dL (Negative) 03/08/21 16:54 Urine Glucose (UA) Neg mg/dL (Negative) 03/08/21 16:54 Urine Ketones Tr mg/dL (Negative) 03/08/21 16:54 Urine Blood Mod (Negative) 03/08/21 16:54 Urine Nitrite Neg (Negative) 03/08/21 16:54 Urine Bilirubin Neg (Negative) 03/08/21 16:54 Urine Urobilinogen < 2.0 mg/dL (<2.0) 03/08/21 16:54 Ur Leukocyte Esterase Neg (Negative) 03/08/21 16:54 Urine WBC (Auto) 2.0 /HPF (0.0-6.0) 03/08/21 16:54 Urine RBC (Auto) 3.0 /HPF (0.0-6.0) 03/08/21 16:54 U Epithel Cells (Auto) 1.0 /HPF (0-13.0) 03/08/21 16:54 Urine Bacteria (Auto) 1+ /HPF (Negative) 03/08/21 16:54 Hyaline Casts 1 /LPF 03/08/21 16:54 Urine Mucus Few /HPF 03/08/21 16:54 Salicylates 5.6 mg/dL (2.8-20.0) 03/08/21 15:49 Acetaminophen 5.0 ug/mL (10.0-30.0) L 03/08/21 15:49 Blood Type B POSITIVE 03/08/21 15:49 Antibody Screen Negative 03/08/21 15:49 Microbiology: Microbiology 03/08/21 15:50 Peripheral/Venous Blood Culture - Preliminary Culture in Progress 03/08/21 15:50 Peripheral/Venous Blood Culture - Preliminary Culture in Progress - Imaging and Cardiology Chest x-ray: report reviewed CT scan - chest: report reviewed Imaging and Cardiology: Chest x-ray Bibasilar pulmonary opacities Most likely etiology is pneumonia This could represent aspiration pneumonia or bacterial/viral pneumonia Chest CT Extensive airspace disease throughout the both lower lobes with appearance more suggestive of bacterial pneumonia rather than Covid type pneumonia Tiny left pneumothorax Abdominal aortic aneurysm measuring 4.4 x 4.3 cm. Assessment and Plan Assessment and plan: Critical care statement The high probability OF a clinically significant sudden or life-threatening deterioration of the cardiorespiratory system and endocrine system required my full and direct attention, intervention and postoperative management. The aggregate critical care time was 40 minutes. The time is in addition to time spent performing reported procedures but includes the followin: Data review and interpretation 2: Patient assessment and monitoring of vital signs 3: Documentation 4:: Medication orders and management Advance Directives: Yes (Full code) Plan of care discussed with patient/family: No - Patient Problems (1) Acute respiratory failure with hypoxia Current Visit: Yes Status: Acute Plan to address problem: Patient intubated in the emergency room patient on low PEEP because of the small left pneumothorax Repeat chest x-ray in a.m. Vent support Bottoming Room Inspector consult Discussed with Dr. Inman (2) Acute encephalopathy Current Visit: Yes Status: Acute Plan to address problem: Secondary to sepsis, high fever and hypoxia Patient initiated on IV antibiotics and vent support Possible aspiration pneumonia which cannot be ruled out Coronavirus infection in the differential diagnosis (3) Sepsis Current Visit: Yes Status: Acute Plan to address problem: Patient with criteria for sepsis with elevated lactic acid COVID-19 positive test (U07.1, COVID-19) with Acute Pneumonia (J12.89, Other viral pneumonia) (If respiratory failure or sepsis present, add as separate assessment) Metabolic acidosis and marginal hypotension (4) Bilateral pneumonia Current Visit: Yes Status: Acute Plan to address problem: Patient initiated on IV cefepime and vancomycin ID consult requested Possible aspiration pneumonia also in the differential diagnosis (5) Suspected COVID-19 virus infection Current Visit: Yes Status: Acute Plan to address problem: Coronavirus PCR in a.m. Isolation precautions IV Solu-Medrol 40 every 8 (6) Hyponatremia Current Visit: Yes Status: Acute Plan to address problem: IV fluids for next 12 hours (7) Transaminitis Current Visit: Yes Status: Acute Plan to address problem: Check acute hepatitis profile Possible secondary to Covid infection (8) Pneumothorax, left Current Visit: Yes Status: Acute Plan to address problem: Small pneumothorax No intervention at this point Discussed with Dr. Inman Low PEEP (9) Elevated troponin Current Visit: Yes Status: Acute Plan to address problem: Nonspecific Troponin leak CK and CK-MB are normal (10) Hyperglycemia Current Visit: Yes Status: Acute Plan to address problem: Check A1c and coverage for now (11) Anemia Current Visit: Yes Status: Chronic Qualifiers: Anemia type: unspecified type Qualified Code(s): D64.9 - Anemia, unspecified Plan to address problem: Anemia work-up (12) DVT prophylaxis Current Visit: Yes Status: Acute Plan to address problem: On heparin and GI prophylaxis
[2021-03-08] MEDS ORDERED: VANCOMYCIN/NS 1 GM/250 ML 1 GM/250 ML BAG IV ONE (22:00)
[2021-03-08] MEDS ORDERED: VANCOMYCIN PHARMACY TO DOSE IV SCH (22:00)
[2021-03-08] MEDS ORDERED: CEFEPIME/NS 2 GM/100 ML 2 GM/100 ML BAG IV SCH ×2 (22:00)
[2021-03-08] MEDS: SENNOSIDES/DOCUSATE SODIUM 8.6/50 MG TAB FEEDTUBE SCH ×2 (23:05→23:17)
[2021-03-08] MEDS: HEPARIN 5,000 UNIT/1 ML VIAL SUB-Q SCH (23:16)
[2021-03-08] MEDS: FAMOTIDINE 20 MG/2 ML INJ IV SCH (23:17)
[2021-03-08] MEDS: SODIUM CHLORIDE 0.9% 1000 ML 1,000 ML IV SCH (23:19)
[2021-03-09 03:05] LABS: Prealbumin 0.058 g/L (0.200-0.400)
--- NOTE | 2021-03-09 04:38 | XRay Report ---
CHEST 1 VIEW 03/09/2021 3:14 AM INDICATION / CLINICAL INFORMATION: follow up respiratory failure. COMPARISON: 03/08/21 FINDINGS: SUPPORT DEVICES: Unchanged. HEART / MEDIASTINUM: Stable. LUNGS / PLEURA: Bibasilar pleural-parenchymal densities are unchanged. No pneumothorax. ADDITIONAL FINDINGS: No significant additional findings. IMPRESSION: 1. No significant change. Signer Name: Irena Parra MD Signed: 03/09/2021 4:34 AM Workstation Name: [id number]
[2021-03-09 06:44] LABS: Basophils % (Auto) 0.4 % (0.0-1.8); Eosinophils % (Auto) 0.1 % (0.0-4.3); Hematocrit 32.8 % (35.5-45.6); Hemoglobin 10.8 gm/dl (11.8-15.2); Lymphocytes # (Auto) 0.5 K/mm3 (1.2-5.4); Lymphocytes % (Auto) 9.9 % (13.4-35.0); Mean Corpuscular HGB Conc 33 % (32-34); Mean Corpuscular Volume 94 fl (84-94); Monocytes # (Auto) 0.4 K/mm3 (0.0-0.8); Monocytes % (Auto) 9.2 % (0.0-7.3); Platelet Count 111 K/mm3 (140-440); Red Cell Distribution Width 13.1 % (13.2-15.2)
[2021-03-09 07:16] LABS: Alanine Aminotransferase 8 units/L (7-56); Albumin 2.4 g/dL (3.9-5); BUN/Creatinine Ratio 42; Blood Urea Nitrogen 46 mg/dL (9-20); Calcium 8.2 mg/dL (8.4-10.2); Hemolysis Index 139
[2021-03-09] MEDS ORDERED: NORepinephrine/NS 4 MG-250 ML 4 MG/250 ML BAG IV ONE (08:02)
[2021-03-09] MEDS: NORepinephrine/NS 4 MG-250 ML 4 MG/250 ML BAG IV SCH ×2 (08:30→20:49)
[2021-03-09] MEDS: methylPREDNISolone Sod Succinate 125 MG/2 ML INJ IV SCH ×3 (08:36→21:47)
[2021-03-09] MEDS ORDERED: SODIUM CHLORIDE 0.9% 1000 ML 1,000 ML IV ONE (09:00)
--- NOTE | 2021-03-09 09:41 | Procedure Note ---
Date of procedure: 03/09/21 Pre-op diagnosis: Hypotension Post-op diagnosis: same Procedure: Right sided Internal Jugular Central Venous catheter. Done emergently as patient is actively hypotensive with pressor going through a peripheral line. Right IJ visualized with ultrasound and cannulted under ultrasound guidance using seldinger technique. A 7 persian triple lumen cather placed without difficulty with biopatch in place. Sutured in and dressed by nursing. Awaiting CXR to confirm placement. Anesthesia: local Surgeon: USMAN JAY Estimated blood loss: none Pathology: none Condition: critical Disposition: ICU
--- NOTE | 2021-03-09 10:08 | Consultation ---
History of Present Illness Consult date: 03/09/21 Requesting physician: JOSE F DORADO Reason for consult: hypoxemia History of present illness: 65 y/o male admitted as a medical emergency for hypoxemia and altered mental status. Patient was intubated by ED. Patient had a needle decompression in the field that became dislodged. CT chest shows small left sided ptx. This am he is sedated, not responsive but became hypotensive so right IJ placed emergently. Remainder is negative. Past History Past Medical History: other (Past medical history not known) Past Surgical History: Other (Not known) Social history: full code Family history: hypertension Medications and Allergies Allergies Allergy/AdvReac Type Severity Reaction Status Date / Time Unable to Assess Allergy Verified 03/08/21 14:37 Active Meds: Active Medications Acetaminophen (Acetaminophen 325 Mg Tab) 650 mg PO Q4H PRN PRN Reason: Pain MILD(1-3)/Fever >100.5/MYERS Lipase/Protease/Amylase (Lipase 10,500/Protease 25,000/Amylase 43,750 (Units) Dr Cap) 1 each FEEDTUBE PRN PRN PRN Reason: For Clogged Feeding Tube Famotidine (Famotidine 20 Mg/2 Ml Inj) 20 mg IV BID [facility] Last Admin: 03/08/21 23:17 Dose: 20 mg Documented by: Fentanyl (Fentanyl 100 Mcg/2 Ml Inj) 50 mcg IV Q10MIN PRN PRN Reason: ANALGESIA Heparin Sodium (Porcine) (Heparin 5,000 Unit/1 Ml Vial) 5,000 unit SUB-Q Q12HR [facility] Last Admin: 03/08/21 23:16 Dose: 5,000 unit Documented by: Hydromorphone HCl (Hydromorphone 1 Mg/1 Ml Inj) 0.5 mg IV Q3H PRN PRN Reason: Pain , Severe (7-10) Hydrophilic Ointment (Lip Therapy Vaseline) 1 applic TP Q2HR PRN PRN Reason: Dry Lips Fentanyl Citrate (Fentanyl Drip Premix) 2,000 mcg in 100 mls @ 2.472 mls/hr IV TITR [facility]; Protocol Last Admin: 03/08/21 15:37 Dose: 1 mcg/kg/hr, 2.472 mls/hr Documented by: Midazolam HCl 100 mg/ Sodium (Chloride) 100 mls @ 2 mls/hr IV TITR [facility]; Protoc ol Last Titration: 03/09/21 00:00 Dose: 2 mg/hr, 2 mls/hr Documented by: Sodium Chloride (Nacl 0.9% 1000 Ml) 1,000 mls @ 100 mls/hr IV DIRECT [facility] Last Admin: 03/08/21 23:19 Dose: 100 mls/hr Documented by: Cefepime HCl (Cefepime/Ns 2 Gm/100 Ml) 2 gm in 100 mls @ 200 mls/hr IV Q24H [facility]; Protocol Last Admin: 03/08/21 23:14 Dose: 200 mls/hr Documented by: Vancomycin HCl 750 mg/ Sodium (Chloride) 265 mls @ 166.667 mls/hr IV Q24H [facility] Sodium Chloride (Nacl 0.9% 1000 Ml) 1,000 mls @ 999 mls/hr IV BOLUS ONE Stop: 03/09/21 10:00 Norepinephrine (Levophed Drip 4 Mg/Ns 250 Ml) 4 mg in 250 mls @ 7.5 mls/hr IV TITR [facility]; Protocol Methylprednisolone Sodium Succinate (Methylprednisolone Sod Succinate 125 Mg/2 Ml Inj) 60 mg IV Q8HR [facility] Last Admin: 03/09/21 08:36 Dose: 60 mg Documented by: Metoclopramide HCl (Metoclopramide 10 Mg/2 Ml Inj) 10 mg IV Q6H PRN PRN Reason: Nausea And Vomiting Midazolam HCl (Midazolam 2 Mg/2 Ml Inj) 2 mg IV Q10MIN PRN PRN Reason: Sedation Morphine Sulfate (Morphine 2 Mg/1 Ml Inj) 2 mg IV Q4H PRN PRN Reason: Pain, Moderate (4-6) Multi-Ingred Cream/Lotion/Oil/Oint (Mineral Oil/Petrolatum, White Ophth Oint 3.5 Gm) 1 applic OU Q4HR PRN PRN Reason: Dry Eye(s) Ondansetron HCl (Ondansetron 4 Mg/2 Ml Inj) 4 mg IV Q3H PRN PRN Reason: Nausea And Vomiting Senna/Docusate Sodium (Sennosides/Docusate Sodium 8.6/50 Mg Tab) 1 tab FEEDTUBE BID [facility] Last Admin: 03/08/21 23:17 Dose: Not Given Documented by: Simple Syrup (Simple Syrup 15 Ml) 15 ml FEEDTUBE PRN PRN PRN Reason: Hypoglycemia Simple Syrup (Simple Syrup 15 Ml) 30 ml FEEDTUBE PRN PRN PRN Reason: Hypoglycemia Sodium Bicarbonate (Sodium Bicarbonate 325 Mg Tab) 325 mg FEEDTUBE PRN PRN PRN Reason: For Clogged Feeding Tube Sodium Chloride (Sodium Chloride 0.9% 10 Ml Flush Syringe) 10 ml IV BID [facility] Last Admin: 03/08/21 23:16 Dose: 10 ml Documented by: Sodium Chloride (Sodium Chloride 0.9% 10 Ml Flush Syringe) 10 ml IV PRN PRN PRN Reason: LINE FLUSH Review of Systems ROS unobtainable: due to endotracheal tube, due to mental status Physical Examination Vital signs: Vital Signs Pulse Ox 96 03/08/21 14:22 General appearance: comatose Eyes: non-icteric ENT: other (orally intubated and sedated.) Neck: supple Effort: normal Ascultation: Bilateral: diminished breath sounds Cardiovascular: regular rate and rhythm Gastrointestinal: normoactive bowel sounds Extremities: no edema, pink and warm unable to assess Results - Laboratory Findings CBC and BMP: 03/09/21 06:18 03/09/21 06:18 ABG ABG pH 7.485 (7.320-7.450) H 03/09/21 00:35 POC ABG pCO2 36.9 mmHg (32.0-48.0) 03/09/21 00:35 ABG pCO2 43.0 mm Hg 03/08/21 15:12 POC ABG pO2 179.1 mmHg (83-108) H 03/09/21 00:35 ABG pO2 381.9 mm Hg (80.0-90.0) H 03/08/21 15:12 POC ABG HCO3 27.2 03/09/21 00:35 ABG O2 Saturation 99.4 (0-100) 03/09/21 00:35 PT/INR, D-dimer PT 14.6 Sec. (12.2-14.9) 03/08/21 15:49 INR 1.09 (0.87-1.13) 03/08/21 15:49 D-Dimer 832.06 ng/mlDDU (0-234) H 03/08/21 15:49 Abnormal lab findings: Abnormal Labs 03/08/21 03/08/21 03/08/21 15:12 15:49 15:49 RBC Hgb Hct MCV 95 H RDW 12.8 L Plt Count Lymph % (Auto) 5.1 L [place] % (Auto) 8.6 H Lymph # (Auto) 0.4 L Seg Neutrophils % 86.1 H APTT 37.1 H D-Dimer 832.06 H ABG pH 7.478 H POC ABG pO2 ABG pO2 381.9 H ABG HCO3 31.2 H ABG O2 Saturation 99.6 H ABG Base Excess 6.9 H ABG Hemoglobin 13.0 L ABG Oxyhemoglobin ABG Sodium ABG Glucose Carboxyhemoglobin Sodium Potassium Chloride Carbon Dioxide BUN Glucose POC Glucose Lactic Acid Calcium Ferritin Ammonia Lactate Dehydrogenase Total Creatine Kinase C-Reactive Protein Total Protein Albumin Prealbumin Arterial Blood Glucose Arterial Blood Ionized Calcium Acetaminophen 03/08/21 03/08/21 03/08/21 15:49 15:49 15:49 RBC Hgb Hct MCV RDW Plt Count Lymph % (Auto) [place] % (Auto) Lymph # (Auto) Seg Neutrophils % APTT D-Dimer ABG pH POC ABG pO2 ABG pO2 ABG HCO3 ABG O2 Saturation ABG Base Excess ABG Hemoglobin ABG Oxyhemoglobin ABG Sodium ABG Glucose Carboxyhemoglobin Sodium 134 L Potassium Chloride 89.7 L Carbon Dioxide 32 H BUN 47 H Glucose 150 H POC Glucose Lactic Acid Calcium Ferritin Ammonia 22.0 L Lactate Dehydrogenase Total Creatine Kinase 52 L C-Reactive Protein Total Protein Albumin 3.2 L Prealbumin Arterial Blood Glucose Arterial Blood Ionized Calcium Acetaminophen 03/08/21 03/08/21 03/08/21 15:49 15:49 15:49 RBC Hgb Hct MCV RDW Plt Count Lymph % (Auto) [place] % (Auto) Lymph # (Auto) Seg Neutrophils % APTT D-Dimer ABG pH POC ABG pO2 ABG pO2 ABG HCO3 ABG O2 Saturation ABG Base Excess ABG Hemoglobin ABG Oxyhemoglobin ABG Sodium ABG Glucose Carboxyhemoglobin Sodium Potassium Chloride Carbon Dioxide BUN Glucose 150 H POC Glucose Lactic Acid 3.40 H* Calcium Ferritin Ammonia Lactate Dehydrogenase 209 H Total Creatine Kinase C-Reactive Protein 24.00 H Total Protein Albumin Prealbumin Arterial Blood Glucose Arterial Blood Ionized Calcium Acetaminophen 5.0 L 03/08/21 03/08/21 03/09/21 15:49 23:27 00:00 RBC Hgb Hct MCV RDW Plt Count Lymph % (Auto) [place] % (Auto) Lymph # (Auto) Seg Neutrophils % APTT D-Dimer ABG pH POC ABG pO2 ABG pO2 ABG HCO3 ABG O2 Saturation ABG Base Excess ABG Hemoglobin ABG Oxyhemoglobin ABG Sodium ABG Glucose Carboxyhemoglobin Sodium Potassium Chloride Carbon Dioxide BUN Glucose POC Glucose 185 H Lactic Acid Calcium Ferritin 1373.0 H Ammonia Lactate Dehydrogenase Total Creatine Kinase C-Reactive Protein Total Protein Albumin Prealbumin 0.058 L Arterial Blood Glucose Arterial Blood Ionized Calcium Acetaminophen 03/09/21 03/09/21 03/09/21 00:35 05:11 06:18 RBC 3.50 L Hgb 10.8 L Hct 32.8 L D MCV RDW 13.1 L Plt Count 111 L Lymph % (Auto) 9.9 L [place] % (Auto) 9.2 H Lymph # (Auto) 0.5 L Seg Neutrophils % 80.4 H APTT D-Dimer ABG pH 7.485 H POC ABG pO2 179.1 H ABG pO2 ABG HCO3 ABG O2 Saturation ABG Base Excess ABG Hemoglobin 10.8 L ABG Oxyhemoglobin 99.1 H ABG Sodium 133.2 L ABG Glucose 175 H Carboxyhemoglobin 0 L Sodium Potassium Chloride Carbon Dioxide BUN Glucose POC Glucose 183 H Lactic Acid Calcium Ferritin Ammonia Lactate Dehydrogenase Total Creatine Kinase C-Reactive Protein Total Protein Albumin Prealbumin Arterial Blood Glucose 175 H Arterial Blood Ionized Calcium 4.3 L Acetaminophen 03/09/21 06:18 RBC Hgb Hct MCV RDW Plt Count Lymph % (Auto) [place] % (Auto) Lymph # (Auto) Seg Neutrophils % APTT D-Dimer ABG pH POC ABG pO2 ABG pO2 ABG HCO3 ABG O2 Saturation ABG Base Excess ABG Hemoglobin ABG Oxyhemoglobin ABG Sodium ABG Glucose Carboxyhemoglobin Sodium 135 L Potassium 5.3 H Chloride Carbon Dioxide BUN 46 H Glucose 178 H POC Glucose Lactic Acid Calcium 8.2 L Ferritin Ammonia Lactate Dehydrogenase Total Creatine Kinase C-Reactive Protein Total Protein 6.1 L Albumin 2.4 L Prealbumin Arterial Blood Glucose Arterial Blood Ionized Calcium Acetaminophen - Diagnostic Findings Chest x-ray: image reviewed CT scan - chest: image reviewed (upper lobe emphysematous changes. bilateral lower lobe consolidation.) Assessment and Plan 65 y/o male with acute respiratory, exact etiology unknown 1. Continue supportive measures 2. CXR is stable and IJ in good position 3. Per Nurse, patient has COPD and chronic respiratory failure and is still smoking. Guarded prognosis
--- NOTE | 2021-03-09 10:38 | XRay Report ---
CHEST - 1 VIEW 1006 hours INDICATION: post central line placement COMPARISON: Earlier today at 0345 hours FINDINGS: Support devices: A right IJ venous catheter has been inserted which terminates near the cavoatrial j unction. The endotracheal tube and nasogastric tube remain in adequate position. Heart: Stable cardiomediastinal silhouette. Lungs/pleura: Stable left lower lobe opacity. The lungs are clear otherwise. No pneumothorax. Additional findings: None. IMPRESSION: Adequate right IJ venous catheter placement. No pneumothorax. Signer Name: Joaquín Mccabe Jr, MD Signed: 03/09/2021 10:33 AM Workstation Name: [id number]
[2021-03-09] MEDS: HEPARIN 5,000 UNIT/1 ML VIAL SUB-Q SCH ×2 (10:45→21:48)
[2021-03-09] MEDS: SODIUM CHLORIDE 0.9% 1000 ML 1,000 ML IV SCH ×2 (11:32→19:45)
[2021-03-09] MEDS: SENNOSIDES/DOCUSATE SODIUM 8.6/50 MG TAB FEEDTUBE SCH ×2 (11:34→21:47)
[2021-03-09] MEDS: FAMOTIDINE 20 MG/2 ML INJ IV SCH ×2 (11:34→21:48)
--- NOTE | 2021-03-09 12:55 | Consultation ---
History of Present Illness - Reason for Consult Consult date: 03/09/21 - History of Present Illness 65-year-old male with hospital due to altered mental status and respiratory failure. He was brought to the hospital by ambulance and was found to be altered mental status as he was walking around his apartment complex he mostly. Febrile with hyperglycemia as well as hypoxic., And out into the ICU. Febrile admission to 101.4 with a white count of 4.6. Pending Covid PCR. Normal renal function, elevated procalcitonin. Currently on cefepime and methylprednisolone. Blood cultures no growth so far. Currently on the vent. Imaging personally viewed: Chest x-ray: Left lower lobe opacity Review of systems: Deferred to reduce to the risk of transmission of COVID-19 Past History Past Medical History: other (Past medical history not known) Past Surgical History: Other (Not known) Social history: full code Family history: hypertension Medications and Allergies Allergies Allergy/AdvReac Type Severity Reaction Status Date / Time Unable to Assess Allergy Verified 03/08/21 14:37 Active Meds: Active Medications Acetaminophen (Acetaminophen 325 Mg Tab) 650 mg PO Q4H PRN PRN Reason: Pain MILD(1-3)/Fever >100.5/MYERS Lipase/Protease/Amylase (Lipase 10,500/Protease 25,000/Amylase 43,750 (Units) Dr Cap) 1 each FEEDTUBE PRN PRN PRN Reason: For Clogged Feeding Tube Famotidine (Famotidine 20 Mg/2 Ml Inj) 20 mg IV BID [facility] Last Admin: 03/09/21 11:34 Dose: 20 mg Documented by: Fentanyl (Fentanyl 100 Mcg/2 Ml Inj) 50 mcg IV Q10MIN PRN PRN Reason: ANALGESIA Heparin Sodium (Porcine) (Heparin 5,000 Unit/1 Ml Vial) 5,000 unit SUB-Q Q12HR [facility] Last Admin: 03/09/21 10:45 Dose: 5,000 unit Documented by: Hydromorphone HCl (Hydromorphone 1 Mg/1 Ml Inj) 0.5 mg IV Q3H PRN PRN Reason: Pain , Severe (7-10) Hydrophilic Ointment (Lip Therapy Vaseline) 1 applic TP Q2HR PRN PRN Reason: Dry Lips Fentanyl Citrate (Fentanyl Drip Premix) 2,000 mcg in 100 mls @ 2.472 mls/hr IV TITR [facility]; Protocol Last Titration: 03/09/21 10:00 Dose: 0 mcg/kg/hr, 0 mls/hr Documented by: Midazolam HCl 100 mg/ Sodium (Chloride) 100 mls @ 2 mls/hr IV TITR [facility]; Protocol Last Titration: 03/09/21 10:00 Dose: 0 mg/hr, 0 mls/hr Documented by: Sodium Chloride (Nacl 0.9% 1000 Ml) 1,000 mls @ 100 mls/hr IV DIRECT [facility] Last Admin: 03/09/21 11:32 Dose: 100 mls/hr Documented by: Vancomycin HCl 750 mg/ Sodium (Chloride) 265 mls @ 166.667 mls/hr IV Q24H [facility] Norepinephrine (Levophed Drip 4 Mg/Ns 250 Ml) 4 mg in 250 mls @ 7.5 mls/hr IV TITR [facility]; Protocol Last Admin: 03/09/21 08:30 Dose: 12 mcg/min, 45 mls/hr Documented by: Cefepime HCl (Cefepime/Ns 2 Gm/100 Ml) 2 gm in 100 mls @ 200 mls/hr IV Q12H [facility]; Protocol Methylprednisolone Sodium Succinate (Methylprednisolone Sod Succinate 125 Mg/2 Ml Inj) 60 mg IV Q8HR [facility] Last Admin: 03/09/21 08:36 Dose: 60 mg Documented by: Metoclopramide HCl (Metoclopramide 10 Mg/2 Ml Inj) 10 mg IV Q6H PRN PRN Reason: Nausea And Vomiting Midazolam HCl (Midazolam 2 Mg/2 Ml Inj) 2 mg IV Q10MIN PRN PRN Reason: Sedation Morphine Sulfate (Morphine 2 Mg/1 Ml Inj) 2 mg IV Q4H PRN PRN Reason: Pain, Moderate (4-6) Multi-Ingred Cream/Lotion/Oil/Oint (Mineral Oil/Petrolatum, White Ophth Oint 3.5 Gm) 1 applic OU Q4HR PRN PRN Reason: Dry Eye(s) Ondansetron HCl (Ondansetron 4 Mg/2 Ml Inj) 4 mg IV Q3H PRN PRN Reason: Nausea And Vomiting Senna/Docusate Sodium (Sennosides/Docusate Sodium 8.6/50 Mg Tab) 1 tab FEEDTUBE BID [facility] Last Admin: 03/09/21 11:34 Dose: 1 tab Documented by: Simple Syrup (Simple Syrup 15 Ml) 15 ml FEEDTUBE PRN PRN PRN Reason: Hypoglycemia Simple Syrup (Simple Syrup 15 Ml) 30 ml FEEDTUBE PRN PRN PRN Reason: Hypoglycemia Sodium Bicarbonate (Sodium Bicarbonate 325 Mg Tab) 325 mg FEEDTUBE PRN PRN PRN Reason: For Clogged Feeding Tube Sodium Chloride (Sodium Chloride 0.9% 10 Ml Flush Syringe) 10 ml IV BID [facility] Last Admin: 03/09/21 11:34 Dose: 10 ml Documented by: Sodium Chloride (Sodium Chloride 0.9% 10 Ml Flush Syringe) 10 ml IV PRN PRN PRN Reason: LINE FLUSH Physical Examination - Physical Exam Narrative exam: Physical exam deferred to reduce risk of transmission of COVID-19. Please refer to primary team's note. - Constitutional Vitals: Vital Signs Temp Pulse Resp BP Pulse Ox 97.6 F 88 18 110/75 100 03/09/21 07:32 03/09/21 12:00 03/09/21 12:00 03/09/21 12:00 03/09/21 12:00 Temperature -Last 24 Hours Temperature 97.6 F Temperature 97.9 F Temperature 98.2 F Temperature 98.4 F Temperature 98.9 F Temperature 101.4 F Results - Labs CBC & Chem 7: 03/09/21 06:18 03/09/21 06:18 Labs: Abnormal lab results 03/08/21 03/08/21 03/08/21 Range/Units 15:12 15:49 15:49 RBC (3.65-5.03) M/mm3 Hgb (11.8-15.2) gm/dl Hct (35.5-45.6) % MCV 95 H (84-94) fl RDW 12.8 L (13.2-15.2) % Plt Count (140-440) K/mm3 Lymph % (Auto) 5.1 L (13.4-35.0) % [place] % (Auto) 8.6 H (0.0-7.3) % Lymph # (Auto) 0.4 L (1.2-5.4) K/mm3 Seg Neutrophils % 86.1 H (40.0-70.0) % APTT 37.1 H (24.2-36.6) Sec. D-Dimer 832.06 H (0-234) ng/mlDDU ABG pH 7.478 H (7.350-7.450) pH Units POC ABG pO2 (83-108) mmHg ABG pO2 381.9 H (80.0-90.0) mm Hg ABG HCO3 31.2 H (20.0-26.0) mmol/L ABG O2 Saturation 99.6 H (95.0-99.0) % ABG Base Excess 6.9 H (-2.0-3.0) mmol/L ABG Hemoglobin 13.0 L (14.0-18.0) gm/dl ABG Oxyhemoglobin (94-98) ABG Sodium (136.0-145.0) mmol/L ABG Glucose (65-95) mg/dL Carboxyhemoglobin (0.5-1.5) Sodium (137-145) mmol/L Potassium (3.6-5.0) mmol/L Chloride (98-107) mmol/L Carbon Dioxide (22-30) mmol/L BUN (9-20) mg/dL Glucose (75-100) mg/dL POC Glucose (70-105) mg/dL Lactic Acid (0.7-2.0) mmol/L Calcium (8.4-10.2) mg/dL Ferritin (30.0-300.0) ng/mL Ammonia (25-60) umol/L Lactate Dehydrogenase (91-180) units/L Total Creatine Kinase (55-170) units/L C-Reactive Protein (0.00-1.30) mg/dL Total Protein (6.3-8.2) g/dL Albumin (3.9-5) g/dL Prealbumin (0.200-0.400) g/L Arterial Blood Glucose (65-95) mg/dL Arterial Blood Ionized Calcium (4.6-5.3) mg/dL Acetaminophen (10.0-30.0) ug/mL 03/08/21 03/08/21 03/08/21 Range/Units 15:49 15:49 15:49 RBC (3.65-5.03) M/mm3 Hgb (11.8-15.2) gm/dl Hct (35.5-45.6) % MCV (84-94) fl RDW (13.2-15.2) % Plt Count (140-440) K/mm3 Lymph % (Auto) (13.4-35.0) % [place] % (Auto) (0.0-7.3) % Lymph # (Auto) (1.2-5.4) K/mm3 Seg Neutrophils % (40.0-70.0) % APTT (24.2-36.6) Sec. D-Dimer (0-234) ng/mlDDU ABG pH (7.350-7.450) pH Units POC ABG pO2 (83-108) mmHg ABG pO2 (80.0-90.0) mm Hg ABG HCO3 (20.0-26.0) mmol/L ABG O2 Saturation (95.0-99.0) % ABG Base Excess (-2.0-3.0) mmol/L ABG Hemoglobin (14.0-18.0) gm/dl ABG Oxyhemoglobin (94-98) ABG Sodium (136.0-145.0) mmol/L ABG Glucose (65-95) mg/dL Carboxyhemoglobin (0.5-1.5) Sodium 134 L (137-145) mmol/L Potassium (3.6-5.0) mmol/L Chloride 89.7 L (98-107) mmol/L Carbon Dioxide 32 H (22-30) mmol/L BUN 47 H (9-20) mg/dL Glucose 150 H (75-100) mg/dL POC Glucose (70-105) mg/dL Lactic Acid (0.7-2.0) mmol/L Calcium (8.4-10.2) mg/dL Ferritin (30.0-300.0) ng/mL Ammonia 22.0 L (25-60) umol/L Lactate Dehydrogenase (91-180) units/L Total Creatine Kinase 52 L (55-170) units/L C-Reactive Protein (0.00-1.30) mg/dL Total Protein (6.3-8.2) g/dL Albumin 3.2 L (3.9-5) g/dL Prealbumin (0.200-0.400) g/L Arterial Blood Glucose (65-95) mg/dL Arterial Blood Ionized Calcium (4.6-5.3) mg/dL Acetaminophen (10.0-30.0) ug/mL 03/08/21 03/08/21 03/08/21 Range/Units 15:49 15:49 15:49 RBC (3.65-5.03) M/mm3 Hgb (11.8-15.2) gm/dl Hct (35.5-45.6) % MCV (84-94) fl RDW (13.2-15.2) % Plt Count (140-440) K/mm3 Lymph % (Auto) (13.4-35.0) % [place] % (Auto) (0.0-7.3) % Lymph # (Auto) (1.2-5.4) K/mm3 Seg Neutrophils % (40.0-70.0) % APTT (24.2-36.6) Sec. D-Dimer (0-234) ng/mlDDU ABG pH (7.350-7.450) pH Units POC ABG pO2 (83-108) mmHg ABG pO2 (80.0-90.0) mm Hg ABG HCO3 (20.0-26.0) mmol/L ABG O2 Saturation (95.0-99.0) % ABG Base Excess (-2.0-3.0) mmol/L ABG Hemoglobin (14.0-18.0) gm/dl ABG Oxyhemoglobin (94-98) ABG Sodium (136.0-145.0) mmol/L ABG Glucose (65-95) mg/dL Carboxyhemoglobin (0.5-1.5) Sodium (137-145) mmol/L Potassium (3.6-5.0) mmol/L Chloride (98-107) mmol/L Carbon Dioxide (22-30) mmol/L BUN (9-20) mg/dL Glucose 150 H (75-100) mg/dL POC Glucose (70-105) mg/dL Lactic Acid 3.40 H* (0.7-2.0) mmol/L Calcium (8.4-10.2) mg/dL Ferritin (30.0-300.0) ng/mL Ammonia (25-60) umol/L Lactate Dehydrogenase 209 H (91-180) units/L Total Creatine Kinase (55-170) units/L C-Reactive Protein 24.00 H (0.00-1.30) mg/dL Total Protein (6.3-8.2) g/dL Albumin (3.9-5) g/dL Prealbumin (0.200-0.400) g/L Arterial Blood Glucose (65-95) mg/dL Arterial Blood Ionized Calcium (4.6-5.3) mg/dL Acetaminophen 5.0 L (10.0-30.0) ug/mL 03/08/21 03/08/21 03/09/21 Range/Units 15:49 23:27 00:00 RBC (3.65-5.03) M/mm3 Hgb (11.8-15.2) gm/dl Hct (35.5-45.6) % MCV (84-94) fl RDW (13.2-15.2) % Plt Count (140-440) K/mm3 Lymph % (Auto) (13.4-35.0) % [place] % (Auto) (0.0-7.3) % Lymph # (Auto) (1.2-5.4) K/mm3 Seg Neutrophils % (40.0-70.0) % APTT (24.2-36.6) Sec. D-Dimer (0-234) ng/mlDDU ABG pH (7.350-7.450) pH Units POC ABG pO2 (83-108) mmHg ABG pO2 (80.0-90.0) mm Hg ABG HCO3 (20.0-26.0) mmol/L ABG O2 Saturation (95.0-99.0) % ABG Base Excess (-2.0-3.0) mmol/L ABG Hemoglobin (14.0-18.0) gm/dl ABG Oxyhemoglobin (94-98) ABG Sodium (136.0-145.0) mmol/L ABG Glucose (65-95) mg/dL Carboxyhemoglobin (0.5-1.5) Sodium (137-145) mmol/L Potassium (3.6-5.0) mmol/L Chloride (98-107) mmol/L Carbon Dioxide (22-30) mmol/L BUN (9-20) mg/dL Glucose (75-100) mg/dL POC Glucose 185 H (70-105) mg/dL Lactic Acid (0.7-2.0) mmol/L Calcium (8.4-10.2) mg/dL Ferritin 1373.0 H (30.0-300.0) ng/mL Ammonia (25-60) umol/L Lactate Dehydrogenase (91-180) units/L Total Creatine Kinase (55-170) units/L C-Reactive Protein (0.00-1.30) mg/dL Total Protein (6.3-8.2) g/dL Albumin (3.9-5) g/dL Prealbumin 0.058 L (0.200-0.400) g/L Arterial Blood Glucose (65-95) mg/dL Arterial Blood Ionized Calcium (4.6-5.3) mg/dL Acetaminophen (10.0-30.0) ug/mL 03/09/21 03/09/21 03/09/21 Range/Units 00:35 05:11 06:18 RBC 3.50 L (3.65-5.03) M/mm3 Hgb 10.8 L (11.8-15.2) gm/dl Hct 32.8 L D (35.5-45.6) % MCV (84-94) fl RDW 13.1 L (13.2-15.2) % Plt Count 111 L (140-440) K/mm3 Lymph % (Auto) 9.9 L (13.4-35.0) % [place] % (Auto) 9.2 H (0.0-7.3) % Lymph # (Auto) 0.5 L (1.2-5.4) K/mm3 Seg Neutrophils % 80.4 H (40.0-70.0) % APTT (24.2-36.6) Sec. D-Dimer (0-234) ng/mlDDU ABG pH 7.485 H (7.350-7.450) pH Units POC ABG pO2 179.1 H (83-108) mmHg ABG pO2 (80.0-90.0) mm Hg ABG HCO3 (20.0-26.0) mmol/L ABG O2 Saturation (95.0-99.0) % ABG Base Excess (-2.0-3.0) mmol/L ABG Hemoglobin 10.8 L (14.0-18.0) gm/dl ABG Oxyhemoglobin 99.1 H (94-98) ABG Sodium 133.2 L (136.0-145.0) mmol/L ABG Glucose 175 H (65-95) mg/dL Carboxyhemoglobin 0 L (0.5-1.5) Sodium (137-145) mmol/L Potassium (3.6-5.0) mmol/L Chloride (98-107) mmol/L Carbon Dioxide (22-30) mmol/L BUN (9-20) mg/dL Glucose (75-100) mg/dL POC Glucose 183 H (70-105) mg/dL Lactic Acid (0.7-2.0) mmol/L Calcium (8.4-10.2) mg/dL Ferritin (30.0-300.0) ng/mL Ammonia (25-60) umol/L Lactate Dehydrogenase (91-180) units/L Total Creatine Kinase (55-170) units/L C-Reactive Protein (0.00-1.30) mg/dL Total Protein (6.3-8.2) g/dL Albumin (3.9-5) g/dL Prealbumin (0.200-0.400) g/L Arterial Blood Glucose 175 H (65-95) mg/dL Arterial Blood Ionized Calcium 4.3 L (4.6-5.3) mg/dL Acetaminophen (10.0-30.0) ug/mL 03/09/21 03/09/21 Range/Units 06:18 11:39 RBC (3.65-5.03) M/mm3 Hgb (11.8-15.2) gm/dl Hct (35.5-45.6) % MCV (84-94) fl RDW (13.2-15.2) % Plt Count (140-440) K/mm3 Lymph % (Auto) (13.4-35.0) % Stephens % (Auto) (0.0-7.3) % Lymph # (Auto) (1.2-5.4) K/mm3 Seg Neutrophils % (40.0-70.0) % APTT (24.2-36.6) Sec. D-Dimer (0-234) ng/mlDDU ABG pH (7.350-7.450) pH Units POC ABG pO2 (83-108) mmHg ABG pO2 (80.0-90.0) mm Hg ABG HCO3 (20.0-26.0) mmol/L ABG O2 Saturation (95.0-99.0) % ABG Base Excess (-2.0-3.0) mmol/L ABG Hemoglobin (14.0-18.0) gm/dl ABG Oxyhemoglobin (94-98) ABG Sodium (136.0-145.0) mmol/L ABG Glucose (65-95) mg/dL Carboxyhemoglobin (0.5-1.5) Sodium 135 L (137-145) mmol/L Potassium 5.3 H (3.6-5.0) mmol/L Chloride (98-107) mmol/L Carbon Dioxide (22-30) mmol/L BUN 46 H (9-20) mg/dL Glucose 178 H (75-100) mg/dL POC Glucose 165 H (70-105) mg/dL Lactic Acid (0.7-2.0) mmol/L Calcium 8.2 L (8.4-10.2) mg/dL Ferritin (30.0-300.0) ng/mL Ammonia (25-60) umol/L Lactate Dehydrogenase (91-180) units/L Total Creatine Kinase (55-170) units/L C-Reactive Protein (0.00-1.30) mg/dL Total Protein 6.1 L (6.3-8.2) g/dL Albumin 2.4 L (3.9-5) g/dL Prealbumin (0.200-0.400) g/L Arterial Blood Glucose (65-95) mg/dL Arterial Blood Ionized Calcium (4.6-5.3) mg/dL Acetaminophen (10.0-30.0) ug/mL Assessment and Plan Cultures: Blood culture pending Covid PCR: Pending A/P: 65-year-old man unknown past medical history as a PUI #Covid PUI: Follow-up PCR testing #Community-acquired pneumonia #Acute hypoxic respiratory failure: Currently vent, secondary to pneumonia possible Covid Recs: -Follow up COVID PCR testing -Steroids per pulmonary -If COVID positive start remdesivir and give Actemra x1 -Continue cefepime to complete 5 days given elevated procalcitonin. -Anticoagulation per hospital protocol. Thank you for the consult, we will continue to follow. Esther Benedict MD [facility] ([facility] O: [phone] F: [phone]
[2021-03-09] MEDS: CEFEPIME/NS 2 GM/100 ML 2 GM/100 ML BAG IV SCH (14:17)
--- NOTE | 2021-03-09 17:12 | Progress Note ---
Assessment and Plan Assessment and plan: (1) Acute respiratory failure with hypoxia Current Visit: Yes Status: Acute Plan to address problem: Patient intubated in the emergency room patient on low PEEP because of the small left pneumothorax Repeat chest x-ray in a.m. Intubated and sedated 03/08 CTA Chest: BL LL PNA noted, small left apical pneumo appreciated. COVID pcr negativ,e repeat pending. Fentanyl, Versed for sedation Nebulizers: Albuterol /budesonide scheduled. Levophed gtt IV Cefepime/ IV Vancomycin Solumedrol 60 q 8hr IV Building R[employer] following Discussed with Dr. Inman (2) Acute encephalopathy Current Visit: Yes Status: Acute Plan to address problem: Secondary to sepsis, high fever and hypoxia Poor cough/gag reflex. Patient initiated on IV antibiotics and vent support Possible aspiration pneumonia which cannot be ruled out Coronavirus infection in the differential diagnosis, initial test negative, repeat pending. (3) Sepsis Patient with criteria for sepsis with elevated lactic acid BCx, SCx pending. Metabolic acidosis and hypotensive (4) Bilateral pneumonia Patient initiated on IV cefepime and vancomycin ID consult requested Possible aspiration pneumonia also in the differential diagnosis (5) Suspected COVID-19 virus infection Coronavirus PCR in a.m. Isolation precautions IV Solu-Medrol 60 every 8 (6) Hyponatremia Current Visit: Yes Status: Acute Plan to address problem: IV fluids for next 12 hours (7) Transaminitis Current Visit: Yes Status: Acute Plan to address problem: Check acute hepatitis profile Possible secondary to Covid infection (8) Pneumothorax, left Current Visit: Yes Status: Acute Plan to address problem: Small pneumothorax No intervention at this point Discussed with Dr. Inman Low PEEP (9) COPD Current Visit: Yes Status: Chronic Plan to address problem: chronic smoker nebulizer tx. (10) Elevated troponin Current Visit: Yes Status: Acute Plan to address problem: Nonspecific Troponin leak CK and CK-MB are normal (11) Hyperglycemia Current Visit: Yes Status: Acute Plan to address problem: Check A1c and coverage for now (12) Anemia Current Visit: Yes Status: Chronic Qualifiers: Anemia type: unspecified type Qualified Code(s): D64.9 - Anemia, unspecified Plan to address problem: Anemia work-up (12) DVT prophylaxis Current Visit: Yes Status: Acute Plan to address problem: On heparin and GI prophylaxis History Interval history: 03/09: Hypotensive in AM, Dr. Inman placed right IJ CVC. Patient intiated on pressors. UOP 200 cc overnight. Hospitalist Physical - Physical exam Narrative exam: General appearance: intbuated sedated, ill appearing elderly gentleman. Eyes: non-icteric ENT: other (orally intubated and sedated.) Neck: supple, right IJ CVC inplace Effort: normal Ascultation: Bilateral: diminished breath sounds Cardiovascular: regular rate and rhythm Gastrointestinal: normoactive bowel sounds Extremities: no edema, pink and warm unable to assess Neuro: sedated. no cough/gag reflex. : Savage in place. - Constitutional Vitals: Temp Pulse Resp BP Pulse Ox 97.9 F 87 18 81/60 98 03/09/21 12:06 03/09/21 14:00 03/09/21 14:00 03/09/21 14:00 03/09/21 14:00 General appearance: Present: severe distress, well-nourished HEART Score - HEART Score Age: > 65 Risk factors: No known risk factors Troponin: < normal limit - Critical Actions Critical Actions: 0-3 pts:0.9-1.7%risk of adverse cardiac event.Candidate for discharge Results - Labs CBC & Chem 7: 03/09/21 06:18 03/09/21 06:18 Labs: Laboratory Last Values WBC 4.6 K/mm3 (4.5-11.0) 03/09/21 06:18 RBC 3.50 M/mm3 (3.65-5.03) L 03/09/21 06:18 Hgb 10.8 gm/dl (11.8-15.2) L 03/09/21 06:18 Hct 32.8 % (35.5-45.6) L D 03/09/21 06:18 MCV 94 fl (84-94) 03/09/21 06:18 MCH 31 pg (28-32) 03/09/21 06:18 MCHC 33 % (32-34) 03/09/21 06:18 RDW 13.1 % (13.2-15.2) L 03/09/21 06:18 Plt Count 111 K/mm3 (140-440) L 03/09/21 06:18 Lymph % (Auto) 9.9 % (13.4-35.0) L 03/09/21 06:18 [place] % (Auto) 9.2 % (0.0-7.3) H 03/09/21 06:18 Eos % (Auto) 0.1 % (0.0-4.3) 03/09/21 06:18 Baso % (Auto) 0.4 % (0.0-1.8) 03/09/21 06:18 Lymph # (Auto) 0.5 K/mm3 (1.2-5.4) L 03/09/21 06:18 [place] # (Auto) 0.4 K/mm3 (0.0-0.8) 03/09/21 06:18 Eos # (Auto) 0.0 K/mm3 (0.0-0.4) 03/09/21 06:18 Baso # (Auto) 0.0 K/mm3 (0.0-0.1) 03/09/21 06:18 Seg Neutrophils % 80.4 % (40.0-70.0) H 03/09/21 06:18 Seg Neutrophils # 3.7 K/mm3 (1.8-7.7) 03/09/21 06:18 PT 14.6 Sec. (12.2-14.9) 03/08/21 15:49 INR 1.09 (0.87-1.13) 03/08/21 15:49 APTT 37.1 Sec. (24.2-36.6) H 03/08/21 15:49 D-Dimer 832.06 ng/mlDDU (0-234) H 03/08/21 15:49 ABG pH 7.485 (7.320-7.450) H 03/09/21 00:35 POC ABG pCO2 36.9 mmHg (32.0-48.0) 03/09/21 00:35 ABG pCO2 43.0 mm Hg 03/08/21 15:12 POC ABG pO2 179.1 mmHg (83-108) H 03/09/21 00:35 ABG pO2 381.9 mm Hg (80.0-90.0) H 03/08/21 15:12 POC ABG HCO3 27.2 03/09/21 00:35 ABG HCO3 31.2 mmol/L (20.0-26.0) H 03/08/21 15:12 ABG O2 Saturation 99.4 (0-100) 03/09/21 00:35 ABG O2 Content 18.9 (0.0-44) 03/08/21 15:12 POC ABG Base Excess 3.7 03/09/21 00:35 ABG Base Excess 6.9 mmol/L (-2.0-3.0) H 03/08/21 15:12 ABG Hemoglobin 10.8 (12.0-17.5) L 03/09/21 00:35 ABG Oxyhemoglobin 99.1 (94-98) H 03/09/21 00:35 ABG Carboxyhemoglobin 1.5 % (0.0-5.0) 03/08/21 15:12 ABG Methemoglobin 0.3 (0.0-1.5) 03/09/21 00:35 ABG Sodium 133.2 mmol/L (136.0-145.0) L 03/09/21 00:35 ABG Potassium 4.3 mmol/L (3.40-4.50) 03/09/21 00:35 ABG Chloride 101.0 mmol/L (98-107) 03/09/21 00:35 ABG Glucose 175 mg/dL (65-95) H 03/09/21 00:35 Oxyhemoglobin 97.5 % (95.0-99.0) 03/08/21 15:12 Carboxyhemoglobin 0 (0.5-1.5) L 03/09/21 00:35 FiO2 100 % 03/08/21 15:12 FiO2 % 55.0 03/09/21 00:35 Sodium 135 mmol/L (137-145) L 03/09/21 06:18 Potassium 5.3 mmol/L (3.6-5.0) H 03/09/21 06:18 Chloride 99.0 mmol/L (98-107) 03/09/21 06:18 Carbon Dioxide 28 mmol/L (22-30) 03/09/21 06:18 Anion Gap 13 mmol/L 03/09/21 06:18 BUN 46 mg/dL (9-20) H 03/09/21 06:18 Creatinine 1.1 mg/dL (0.8-1.3) 03/09/21 06:18 Estimated GFR > 60 ml/min 03/09/21 06:18 BUN/Creatinine Ratio 42 % 03/09/21 06:18 Glucose 178 mg/dL (75-100) H 03/09/21 06:18 POC Glucose 165 mg/dL (70-105) H 03/09/21 11:39 Hemoglobin A1c 5.6 % (4-6) 03/09/21 06:18 Lactic Acid 3.40 mmol/L (0.7-2.0) H* 03/08/21 15:49 Calcium 8.2 mg/dL (8.4-10.2) L 03/09/21 06:18 Phosphorus 2.70 mg/dL (2.5-4.5) 03/09/21 00:00 Magnesium 2.10 mg/dL (1.7-2.3) 03/09/21 00:00 Ferritin 1373.0 ng/mL (30.0-300.0) H 03/08/21 15:49 Total Bilirubin 0.30 mg/dL (0.1-1.2) 03/09/21 06:18 AST 24 units/L (5-40) 03/09/21 06:18 ALT 8 units/L (7-56) 03/09/21 06:18 Alkaline Phosphatase 35 units/L (35-129) 03/09/21 06:18 Ammonia 22.0 umol/L (25-60) L 03/08/21 15:49 Lactate Dehydrogenase 209 units/L (91-180) H 03/08/21 15:49 Total Creatine Kinase 52 units/L (55-170) L 03/08/21 15:49 C-Reactive Protein 24.00 mg/dL (0.00-1.30) H 03/08/21 15:49 Total Protein 6.1 g/dL (6.3-8.2) L 03/09/21 06:18 Albumin 2.4 g/dL (3.9-5) L 03/09/21 06:18 Albumin/Globulin Ratio 0.6 % 03/09/21 06:18 Prealbumin 0.058 g/L (0.200-0.400) L 03/09/21 00:00 Procalcitonin 1.35 ng/mL (<0.15) 03/08/21 15:49 TSH 2.030 mlU/mL (0.270-4.200) 03/08/21 15:49 Arterial Blood Glucose 175 mg/dL (65-95) H 03/09/21 00:35 Arterial Blood Ionized Calcium 4.3 mg/dL (4.6-5.3) L 03/09/21 00:35 Urine Color Maren (Yellow) 03/08/21 16:54 Urine Turbidity Cloudy (Clear) 03/08/21 16:54 Urine pH 5.0 (5.0-7.0) 03/08/21 16:54 Ur Specific [place] 1.019 (1.003-1.030) 03/08/21 16:54 Urine Protein 100 mg/dl mg/dL (Negative) 03/08/21 16:54 Urine Glucose (UA) Neg mg/dL (Negative) 03/08/21 16:54 Urine Ketones Tr mg/dL (Negative) 03/08/21 16:54 Urine Blood Mod (Negative) 03/08/21 16:54 Urine Nitrite Neg (Negative) 03/08/21 16:54 Urine Bilirubin Neg (Negative) 03/08/21 16:54 Urine Urobilinogen < 2.0 mg/dL (<2.0) 03/08/21 16:54 Ur Leukocyte Esterase Neg (Negative) 03/08/21 16:54 Urine WBC (Auto) 2.0 /HPF (0.0-6.0) 03/08/21 16:54 Urine RBC (Auto) 3.0 /HPF (0.0-6.0) 03/08/21 16:54 U Epithel Cells (Auto) 1.0 /HPF (0-13.0) 03/08/21 16:54 Urine Bacteria (Auto) 1+ /HPF (Negative) 03/08/21 16:54 Hyaline Casts 1 /LPF 03/08/21 16:54 Urine Mucus Few /HPF 03/08/21 16:54 Salicylates 5.6 mg/dL (2.8-20.0) 03/08/21 15:49 Acetaminophen 5.0 ug/mL (10.0-30.0) L 03/08/21 15:49 Coronavirus (PCR) (Negative) 03/08/21 Unknown Blood Type B POSITIVE 03/08/21 15:49 Antibody Screen Negative 03/08/21 15:49 Microbiology: Microbiology 03/08/21 15:50 Peripheral/Venous Blood Culture - Preliminary NO GROWTH AFTER 24 HOURS 03/08/21 15:50 Peripheral/Venous Blood Culture - Preliminary NO GROWTH AFTER 24 HOURS Savage/IV: Voiding Method Indwelling Catheter Active Medications - Current Medications Current Medications: Generic Name Dose Route Start Last Admin Trade Name Freq PRN Reason Stop Dose Admin Acetaminophen 650 mg 03/08/21 21:36 Acetaminophen 325 Mg Tab PO Q4H PRN Pain MILD(1-3)/Fever >100.5/MYERS Lipase/Protease/Amylase 1 each 03/08/21 21:42 Lipase 10,500/Protease 25,000/Amylase 43,750 (Units) Dr Cap FEEDTUBE PRN PRN For Clogged Feeding Tube Famotidine 20 mg 03/08/21 22:00 03/09/21 11:34 Famotidine 20 Mg/2 Ml Inj IV 20 mg BID PRINCESS Administration Fentanyl 50 mcg 03/08/21 14:33 Fentanyl 100 Mcg/2 Ml Inj IV Q10MIN PRN ANALGESIA Heparin Sodium (Porcine) 5,000 unit 03/08/21 22:00 03/09/21 10:45 Heparin 5,000 Unit/1 Ml Vial SUB-Q 5,000 unit Q12HR PRINCESS Administration Hydromorphone HCl 0.5 mg 03/08/21 21:36 Hydromorphone 1 Mg/1 Ml Inj IV Q3H PRN Pain , Severe (7-10) Hydrophilic Ointment 1 applic 03/08/21 14:33 Lip Therapy Vaseline TP Q2HR PRN Dry Lips Fentanyl Citrate 2,000 mcg in 100 mls @ 2.472 mls/hr 03/08/21 15:00 03/09/21 10:00 Fentanyl Drip Premix IV 0 mcg/kg/hr TITR PRINCESS 0 mls/hr Titration Protocol 1 MCG/KG/HR Midazolam HCl 100 mg/ Sodium 100 mls @ 2 mls/hr 03/08/21 15:00 03/09/21 10:00 Chloride IV 0 mg/hr TITR PRINCESS 0 mls/hr Titration Protocol 2 MG/HR Sodium Chloride 1,000 mls @ 100 mls/hr 03/08/21 21:45 03/09/21 11:32 Nacl 0.9% 1000 Ml IV 100 mls/hr DIRECT PRINCESS Administration Vancomycin HCl 750 mg/ Sodium 265 mls @ 166.667 mls/hr 03/09/21 23:00 Chloride IV Q24H PRINCESS Norepinephrine 4 mg in 250 mls @ 7.5 mls/hr 03/09/21 08:00 03/09/21 08:30 Levophed Drip 4 Mg/Ns 250 Ml IV 12 mcg/min TITR PRINCESS 45 mls/hr Administration Protocol 2 MCG/MIN Cefepime HCl 2 gm in 100 mls @ 200 mls/hr 03/09/21 14:00 03/09/21 14:17 Cefepime/Ns 2 Gm/100 Ml IV 200 mls/hr Q12H PRINCESS Administration Protocol Methylprednisolone Sodium Succinate 60 mg 03/09/21 08:00 03/09/21 14:17 Methylprednisolone Sod Succinate 125 Mg/2 Ml Inj IV 60 mg Q8HR PRINCESS Administration Metoclopramide HCl 10 mg 03/08/21 21:36 Metoclopramide 10 Mg/2 Ml Inj IV Q6H PRN Nausea And Vomiting Midazolam HCl 2 mg 03/08/21 14:33 Midazolam 2 Mg/2 Ml Inj IV Q10MIN PRN Sedation Morphine Sulfate 2 mg 03/08/21 21:36 Morphine 2 Mg/1 Ml Inj IV Q4H PRN Pain, Moderate (4-6) Multi-Ingred Cream/Lotion/Oil/Oint 1 applic 03/08/21 14:33 Mineral Oil/Petrolatum, White Ophth Oint 3.5 Gm OU Q4HR PRN Dry Eye(s) Ondansetron HCl 4 mg 03/08/21 21:36 Ondansetron 4 Mg/2 Ml Inj IV Q3H PRN Nausea And Vomiting Senna/Docusate Sodium 1 tab 03/08/21 22:00 03/09/21 11:34 Sennosides/Docusate Sodium 8.6/50 Mg Tab FEEDTUBE 1 tab BID PRINCESS Administration Simple Syrup 15 ml 03/08/21 21:42 Simple Syrup 15 Ml FEEDTUBE PRN PRN Hypoglycemia Simple Syrup 30 ml 03/08/21 21:42 Simple Syrup 15 Ml FEEDTUBE PRN PRN Hypoglycemia Sodium Bicarbonate 325 mg 03/08/21 21:42 Sodium Bicarbonate 325 Mg Tab FEEDTUBE PRN PRN For Clogged Feeding Tube Sodium Chloride 10 ml 03/08/21 22:00 03/09/21 11:34 Sodium Chloride 0.9% 10 Ml Flush Syringe IV 10 ml BID PRINCESS Administration Sodium Chloride 10 ml 03/08/21 21:36 Sodium Chloride 0.9% 10 Ml Flush Syringe IV PRN PRN LINE FLUSH Nutrition/Malnutrition Assess - Dietary Evaluation Nutrition/Malnutrition Findings: Nutrition Notes Start: 03/09/21 07:48 Freq: Status: Active Protocol: Document 03/09/21 07:48 JEROME (Rec: 03/09/21 08:05 JEROME [id number]) Nutrition Notes Need for Assessment generated from: MD Order,registered health nurse,MST Initial or Follow up Assessment Current Diagnosis Sepsis,Respiratory Failure Other Pertinent Diagnosis pneu, COVID PUI, anemia, AMS Current Diet TF Labs/Tests Na 135 K 5.3 BG 178 BUN 46 Pertinent Medications NS at 100 ml/hr Height 5 ft 5 in Weight 51.8 kg Ione Body Weight (kg) 61.81 BMI 19.0 Weight Status Appropriate Subjective/Other Information MD consult for TF and eval intakes. RN screen for skin risk and MST. Rony score 11. Pt on vent. Burn Absent Trauma Absent Current % PO Negligible Minimum of two criteria No physical signs of malnutrition #1 Nutrition Diagnosis Inadequate oral intake Etiology ARF As Evidenced by Signs and Symptoms pt on vent and unable to consume PO Is patient on ventilator? Yes Is Patient Ambulatory and/or Out of Bed No REE-([facility]-confined to bed) 7380.679 Calculation Used for Recommendations [facility] Additional Notes Protein: (1.2-2g/kg) 62-104g Fluid: 1 ml/kcal or per MD Nutrition Intervention Change Diet Order: Start TF Nutrition Support: Vital AF 1.2 at 50 ml/hr Flush 50 ml q4h Kcal 1,440 Protein (gm) 90 Fluid (mL) 973 Goal #1 Meet at least 75% of energy and protein needs via TF Anticipated Discharge Needs: unable to determine at this time Follow-Up By: 03/11/21 Additional Comments F/u: TF start and tolerance
[2021-03-09] MEDS: BUDESONIDE 0.5 MG/2 ML NEBU IH SCH (21:13)
[2021-03-09] MEDS: ALBUTEROL 2.5 MG/3 ML NEBU IH SCH (21:13)
[2021-03-09] MEDS: fentaNYL DRIP Premix 2,000 MCG/100 ML BAG IV SCH (21:53)
[2021-03-09] MEDS ORDERED: VANCOMYCIN 750 MG in SODIUM CHLORIDE 0.9% 250ML 250 ML IV SCH (23:00)
[2021-03-10] MEDS: ALBUTEROL 2.5 MG/3 ML NEBU IH SCH ×3 (00:11→08:08)
[2021-03-10] MEDS: NORepinephrine/NS 4 MG-250 ML 4 MG/250 ML BAG IV SCH (03:24)
[2021-03-10 06:07] LABS: Basophils % (Auto) 0.1 % (0.0-1.8); Hematocrit 35.8 % (35.5-45.6); Hemoglobin 11.7 gm/dl (11.8-15.2); Lymphocytes # (Auto) 0.3 K/mm3 (1.2-5.4); Lymphocytes % (Auto) 2.6 % (13.4-35.0); Mean Corpuscular HGB Conc 33 % (32-34); Mean Corpuscular Volume 95 fl (84-94); Monocytes # (Auto) 0.9 K/mm3 (0.0-0.8); Monocytes % (Auto) 7.5 % (0.0-7.3); Platelet Count 248 K/mm3 (140-440); Red Blood Count 3.77 M/mm3 (3.65-5.03); Red Cell Distribution Width 13.3 % (13.2-15.2)
[2021-03-10 06:14] LABS: Alanine Aminotransferase 10 units/L (7-56); Albumin 2.7 g/dL (3.9-5); BUN/Creatinine Ratio 40; Blood Urea Nitrogen 48 mg/dL (9-20); Calcium 7.9 mg/dL (8.4-10.2); Hemolysis Index 3
[2021-03-10] MEDS: BUDESONIDE 0.5 MG/2 ML NEBU IH SCH ×2 (08:08→20:05)
--- NOTE | 2021-03-10 09:12 | XRay Report ---
CHEST 1 VIEW INDICATION / CLINICAL INFORMATION: Respiratory failure. COMPARISON: 03/09/2021, 03/08/2021. FINDINGS: SUPPORT DEVICES: Stable positioning of endotracheal tube and right-sided central venous catheter. Par tially visualized gastric tube appears unchanged. HEART / MEDIASTINUM: No significant abnormality. LUNGS / PLEURA: Slight improvement in bilateral lower lobe airspace disease and consolidation. No pne umothorax. ADDITIONAL FINDINGS: No significant additional findings. IMPRESSION: Slight improvement in bilateral lower lobe airspace disease and consolidation. Signer Name: Jhon Laguna MD Signed: 03/10/2021 9:08 AM Workstation Name: [id number]
[2021-03-10] MEDS: CEFEPIME/NS 2 GM/100 ML 2 GM/100 ML BAG IV SCH ×2 (09:57→13:57)
[2021-03-10] MEDS: methylPREDNISolone Sod Succinate 125 MG/2 ML INJ IV SCH ×3 (09:58→22:22)
[2021-03-10] MEDS: HEPARIN 5,000 UNIT/1 ML VIAL SUB-Q SCH ×2 (10:01→22:23)
[2021-03-10] MEDS: FAMOTIDINE 20 MG TAB PO SCH ×2 (10:01→22:23)
[2021-03-10] MEDS: SENNOSIDES/DOCUSATE SODIUM 8.6/50 MG TAB FEEDTUBE SCH ×2 (10:02→22:23)
--- NOTE | 2021-03-10 10:50 | Progress Note ---
Assessment and Plan 65 y/o male with acute respiratory, exact etiology unknown 03/10/21: Sedation stopped and now discontinued from OCT. 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 The repeat EKG still shows some ST elevation in V3 but T waves have inverted V4, V5 and V6. Per the tech, the tech from yesterday did an EKG off the wrong order but the EKG showing ST elevations was not shown to a physician. Will order Troponin now and obtain 2D echo once COVID results are back. At this point, pending these labs will determine cardiology consult. As stated before, hemodynamically the patient is stable. Tech needs order for EKG but as I explained, not able to back date an order and there was not an order for that EKG to begin with. Very difficult case in regards to EKG. Will speak with risk about this. 1. Continue supportive measures 2. CXR is stable and IJ in good position 3. Per Nurse, patient has COPD and chronic respiratory failure and is still smoking. Guarded prognosis Subjective Date of service: 03/10/21 Interval history: Sedation off all day yesterday, however patient woke up late at night and sedation was restarted. Still on minimal vent support. ABG is good. polysomnographic technician showed me an EKG from yesterday showing ST elevation but this was not shown to anyone. Hemodynamically patient is stable. Asked tech to repeat EKG now. Objective Vital Signs - 12hr 03/09/21 03/09/21 03/09/21 23:00 23:16 23:30 Temperature Pulse Rate 84 81 79 Pulse Rate [ Bilateral Throughout] Respiratory 18 18 18 Rate Respiratory Rate [Bilateral Throughout] Blood Pressure 152/78 148/70 148/70 O2 Sat by Pulse 100 100 100 Oximetry 03/09/21 03/10/21 03/10/21 23:46 00:00 00:13 Temperature 98.0 F Pulse Rate 78 75 76 Pulse Rate [ Bilateral Throughout] Respiratory 18 18 Rate Respiratory Rate [Bilateral Throughout] Blood Pressure 153/63 153/63 153/63 O2 Sat by Pulse 100 100 100 Oximetry 03/10/21 03/10/21 03/10/21 00:16 00:30 00:45 Temperature Pulse Rate 76 76 75 Pulse Rate [ Bilateral Throughout] Respiratory 18 18 18 Rate Respiratory Rate [Bilateral Throughout] Blood Pressure 153/63 149/68 158/71 O2 Sat by Pulse 100 100 100 Oximetry 03/10/21 03/10/21 03/10/21 01:00 01:16 01:30 Temperature Pulse Rate 76 76 76 Pulse Rate [ Bilateral Throughout] Respiratory 18 18 18 Rate Respiratory Rate [Bilateral Throughout] Blood Pressure 158/71 139/61 122/61 O2 Sat by Pulse 100 100 100 Oximetry 03/10/21 03/10/21 03/10/21 01:45 02:00 02:16 Temperature Pulse Rate 79 84 77 Pulse Rate [ Bilateral Throughout] Respiratory 18 18 18 Rate Respiratory Rate [Bilateral Throughout] Blood Pressure 90/52 90/52 150/78 O2 Sat by Pulse 100 100 100 Oximetry 03/10/21 03/10/21 03/10/21 02:30 02:46 03:00 Temperature Pulse Rate 74 74 75 Pulse Rate [ Bilateral Throughout] Respiratory 18 18 18 Rate Respiratory Rate [Bilateral Throughout] Blood Pressure 90/52 155/69 155/69 O2 Sat by Pulse 100 100 100 Oximetry 03/10/21 03/10/21 03/10/21 03:16 03:30 03:45 Temperature Pulse Rate 73 70 69 Pulse Rate [ Bilateral Throughout] Respiratory 18 18 18 Rate Respiratory Rate [Bilateral Throughout] Blood Pressure 172/70 172/70 119/64 O2 Sat by Pulse 100 100 100 Oximetry 03/10/21 03/10/21 03/10/21 04:00 04:15 04:18 Temperature 98.1 F Pulse Rate 67 66 Pulse Rate [ 68 Bilateral Throughout] Respiratory 18 18 Rate Respiratory 18 Rate [Bilateral Throughout] Blood Pressure 119/64 123/65 O2 Sat by Pulse 100 100 Oximetry 03/10/21 03/10/21 03/10/21 04:30 04:46 05:00 Temperature Pulse Rate 68 67 69 Pulse Rate [ Bilateral Throughout] Respiratory 18 18 18 Rate Respiratory Rate [Bilateral Throughout] Blood Pressure 123/65 125/62 123/63 O2 Sat by Pulse 100 100 100 Oximetry 03/10/21 03/10/21 03/10/21 05:16 05:30 05:46 Temperature Pulse Rate 70 70 69 Pulse Rate [ Bilateral Throughout] Respiratory 18 18 18 Rate Respiratory Rate [Bilateral Throughout] Blood Pressure 126/60 118/58 123/60 O2 Sat by Pulse 99 99 99 Oximetry 03/10/21 03/10/21 03/10/21 06:00 06:16 06:30 Temperature Pulse Rate 68 67 67 Pulse Rate [ Bilateral Throughout] Respiratory 18 18 18 Rate Respiratory Rate [Bilateral Throughout] Blood Pressure 123/60 124/62 128/60 O2 Sat by Pulse 100 100 100 Oximetry 03/10/21 03/10/21 03/10/21 06:45 07:00 07:16 Temperature 97.6 F Pulse Rate 68 67 66 Pulse Rate [ Bilateral Throughout] Respiratory 18 18 18 Rate Respiratory Rate [Bilateral Throughout] Blood Pressure 124/64 124/64 132/65 O2 Sat by Pulse 100 100 100 Oximetry 03/10/21 08:08 Temperature Pulse Rate 70 Pulse Rate [ Bilateral Throughout] Respiratory Rate Respiratory Rate [Bilateral Throughout] Blood Pressure 119/55 O2 Sat by Pulse 100 Oximetry Constitutional: comatose Eyes: non-icteric ENT: other (orally intubated and sedated.) Neck: supple Effort: normal Ascultation: Bilateral: diminished breath sounds Cardiovascular: regular rate and rhythm Gastrointestinal: normoactive bowel sounds Extremities: no edema, pink and warm Neurologic: unable to assess CBC and BMP: 03/10/21 05:14 03/10/21 05:14 ABG, PT/INR, D-dimer: ABG ABG pH 7.352 (7.320-7.450) 03/10/21 02:59 POC ABG pCO2 44.5 mmHg (32.0-48.0) 03/10/21 02:59 ABG pCO2 43.0 mm Hg 03/08/21 15:12 POC ABG pO2 105.3 mmHg (83-108) 03/10/21 02:59 ABG pO2 381.9 mm Hg (80.0-90.0) H 03/08/21 15:12 POC ABG HCO3 24.1 03/10/21 02:59 ABG O2 Saturation 97.6 (0-100) 03/10/21 02:59 PT/INR, D-dimer PT 14.6 Sec. (12.2-14.9) 03/08/21 15:49 INR 1.09 (0.87-1.13) 03/08/21 15:49 D-Dimer 832.06 ng/mlDDU (0-234) H 03/08/21 15:49 Abnormal lab findings: Abnormal Labs 03/08/21 03/08/21 03/08/21 15:12 15:49 15:49 WBC RBC Hgb Hct MCV 95 H RDW 12.8 L Plt Count Lymph % (Auto) 5.1 L [place] % (Auto) 8.6 H Lymph # (Auto) 0.4 L [place] # (Auto) Seg Neutrophils % 86.1 H Seg Neutrophils # APTT 37.1 H D-Dimer 832.06 H ABG pH 7.478 H POC ABG pO2 ABG pO2 381.9 H ABG HCO3 31.2 H ABG O2 Saturation 99.6 H ABG Base Excess 6.9 H ABG Hemoglobin 13.0 L ABG Oxyhemoglobin ABG Sodium ABG Chloride ABG Glucose Carboxyhemoglobin Sodium Potassium Chloride Carbon Dioxide BUN Glucose POC Glucose Lactic Acid Calcium Ferritin AST Ammonia Lactate Dehydrogenase Total Creatine Kinase C-Reactive Protein Total Protein Albumin Prealbumin Arterial Blood Glucose Arterial Blood Ionized Calcium Acetaminophen 03/08/21 03/08/21 03/08/21 15:49 15:49 15:49 WBC RBC Hgb Hct MCV RDW Plt Count Lymph % (Auto) [place] % (Auto) Lymph # (Auto) [place] # (Auto) Seg Neutrophils % Seg Neutrophils # APTT D-Dimer ABG pH POC ABG pO2 ABG pO2 ABG HCO3 ABG O2 Saturation ABG Base Excess ABG Hemoglobin ABG Oxyhemoglobin ABG Sodium ABG Chloride ABG Glucose Carboxyhemoglobin Sodium 134 L Potassium Chloride 89.7 L Carbon Dioxide 32 H BUN 47 H Glucose 150 H POC Glucose Lactic Acid Calcium Ferritin AST Ammonia 22.0 L Lactate Dehydrogenase Total Creatine Kinase 52 L C-Reactive Protein Total Protein Albumin 3.2 L Prealbumin Arterial Blood Glucose Arterial Blood Ionized Calcium Acetaminophen 03/08/21 03/08/21 03/08/21 15:49 15:49 15:49 WBC RBC Hgb Hct MCV RDW Plt Count Lymph % (Auto) [place] % (Auto) Lymph # (Auto) [place] # (Auto) Seg Neutrophils % Seg Neutrophils # APTT D-Dimer ABG pH POC ABG pO2 ABG pO2 ABG HCO3 ABG O2 Saturation ABG Base Excess ABG Hemoglobin ABG Oxyhemoglobin ABG Sodium ABG Chloride ABG Glucose Carboxyhemoglobin Sodium Potassium Chloride Carbon Dioxide BUN Glucose 150 H POC Glucose Lactic Acid 3.40 H* Calcium Ferritin AST Ammonia Lactate Dehydrogenase 209 H Total Creatine Kinase C-Reactive Protein 24.00 H Total Protein Albumin Prealbumin Arterial Blood Glucose Arterial Blood Ionized Calcium Acetaminophen 5.0 L 03/08/21 03/08/21 03/09/21 15:49 23:27 00:00 WBC RBC Hgb Hct MCV RDW Plt Count Lymph % (Auto) [place] % (Auto) Lymph # (Auto) [place] # (Auto) Seg Neutrophils % Seg Neutrophils # APTT D-Dimer ABG pH POC ABG pO2 ABG pO2 ABG HCO3 ABG O2 Saturation ABG Base Excess ABG Hemoglobin ABG Oxyhemoglobin ABG Sodium ABG Chloride ABG Glucose Carboxyhemoglobin Sodium Potassium Chloride Carbon Dioxide BUN Glucose POC Glucose 185 H Lactic Acid Calcium Ferritin 1373.0 H AST Ammonia Lactate Dehydrogenase Total Creatine Kinase C-Reactive Protein Total Protein Albumin Prealbumin 0.058 L Arterial Blood Glucose Arterial Blood Ionized Calcium Acetaminophen 03/09/21 03/09/21 03/09/21 05:11 06:18 06:18 WBC RBC 3.50 L Hgb 10.8 L Hct 32.8 L D MCV RDW 13.1 L Plt Count 111 L Lymph % (Auto) 9.9 L [place] % (Auto) 9.2 H Lymph # (Auto) 0.5 L [place] # (Auto) Seg Neutrophils % 80.4 H Seg Neutrophils # APTT D-Dimer ABG pH POC ABG pO2 ABG pO2 ABG HCO3 ABG O2 Saturation ABG Base Excess ABG Hemoglobin ABG Oxyhemoglobin ABG Sodium ABG Chloride ABG Glucose Carboxyhemoglobin Sodium 135 L Potassium 5.3 H Chloride Carbon Dioxide BUN 46 H Glucose 178 H POC Glucose 183 H Lactic Acid Calcium 8.2 L Ferritin AST Ammonia Lactate Dehydrogenase Total Creatine Kinase C-Reactive Protein Total Protein 6.1 L Albumin 2.4 L Prealbumin Arterial Blood Glucose Arterial Blood Ionized Calcium Acetaminophen 03/09/21 03/09/21 03/09/21 07:40 11:39 18:09 WBC RBC Hgb Hct MCV RDW Plt Count Lymph % (Auto) [place] % (Auto) Lymph # (Auto) [place] # (Auto) Seg Neutrophils % Seg Neutrophils # APTT D-Dimer ABG pH 7.485 H POC ABG pO2 179.1 H ABG pO2 ABG HCO3 ABG O2 Saturation ABG Base Excess ABG Hemoglobin 10.8 L ABG Oxyhemoglobin 99.1 H ABG Sodium 133.2 L ABG Chloride ABG Glucose 175 H Carboxyhemoglobin 0 L Sodium Potassium Chloride Carbon Dioxide BUN Glucose POC Glucose 165 H 167 H Lactic Acid Calcium Ferritin AST Ammonia Lactate Dehydrogenase Total Creatine Kinase C-Reactive Protein Total Protein Albumin Prealbumin Arterial Blood Glucose 175 H Arterial Blood Ionized Calcium 4.3 L Acetaminophen 03/09/21 03/10/21 03/10/21 23:53 02:59 05:14 WBC 12.0 H RBC Hgb 11.7 L Hct MCV 95 H RDW Plt Count Lymph % (Auto) 2.6 L [place] % (Auto) 7.5 H Lymph # (Auto) 0.3 L [place] # (Auto) 0.9 H Seg Neutrophils % 89.8 H Seg Neutrophils # 10.8 H APTT D-Dimer ABG pH POC ABG pO2 ABG pO2 ABG HCO3 ABG O2 Saturation ABG Base Excess ABG Hemoglobin 11.9 L ABG Oxyhemoglobin ABG Sodium ABG Chloride 108.0 H ABG Glucose 232 H Carboxyhemoglobin 0.3 L Sodium Potassium Chloride Carbon Dioxide BUN Glucose POC Glucose 210 H Lactic Acid Calcium Ferritin AST Ammonia Lactate Dehydrogenase Total Creatine Kinase C-Reactive Protein Total Protein Albumin Prealbumin Arterial Blood Glucose 232 H Arterial Blood Ionized Calcium 4.4 L Acetaminophen 03/10/21 03/10/21 05:14 05:35 WBC RBC Hgb Hct MCV RDW Plt Count Lymph % (Auto) [place] % (Auto) Lymph # (Auto) [place] # (Auto) Seg Neutrophils % Seg Neutrophils # APTT D-Dimer ABG pH POC ABG pO2 ABG pO2 ABG HCO3 ABG O2 Saturation ABG Base Excess ABG Hemoglobin ABG Oxyhemoglobin ABG Sodium ABG Chloride ABG Glucose Carboxyhemoglobin Sodium Potassium Chloride 107.2 H Carbon Dioxide BUN 48 H Glucose 218 H POC Glucose 210 H Lactic Acid Calcium 7.9 L Ferritin AST 41 H Ammonia Lactate Dehydrogenase Total Creatine Kinase C-Reactive Protein Total Protein 5.7 L Albumin 2.7 L Prealbumin Arterial Blood Glucose Arterial Blood Ionized Calcium Acetaminophen
[2021-03-10 12:29] LABS: Creatine Kinase MB 17.8 ng/mL (0.0-4.0)
[2021-03-10 13:00] LABS: Chol/HDL Ratio 3.61 %
[2021-03-10] MEDS: INSULIN LISPRO 100 UNIT/ML SUB-Q SCH ×2 (13:56→18:23)
--- NOTE | 2021-03-10 14:31 | Progress Note ---
Assessment and Plan 65-year-old male brought to hospital by EMS for altered mental status and respiratory failure. On EMS arrival patient had a temperature 102.3 and Patient was also severely hypoxic and required dos-sycev-pdab ventilation mask ventilation. EMS also felt the patient had diminished breath sounds in the left side and there was a concern for pneumothorax on the left side. EMS performed a decompression of the left hemothorax and extremity. Upon arrival to the emergency room EMS placed the chest tube/catheter became dislodged. Stat chest x-ray showed no obvious left-sided pneumothorax. Given altered mental status and respiratory failure with history of hypoxia patient was intubated by the ED physician. Code sepsis was called and the patient was treated empirically with steroids and duo nebs and ceftriaxone and azithromycin, admitted to ICU for further further stabilization and Mx. A/P: -- Acute respiratory failure with hypoxia Current Visit: Yes Status: Acute Plan to address problem: Patient intubated in the emergency room patient on low PEEP because of the small left pneumothorax planned for extubation today 03/08 CTA Chest: BL LL PNA noted, small left apical pneumo appreciated. COVID pcr negativ, repeat pending. Fentanyl, Versed for sedation Nebulizers: Albuterol /budesonide scheduled. IV Cefepime/ IV Vancomycin Solumedrol 60 q 8hr IV Dry End Operator following --Acute encephalopathy Secondary to sepsis, high fever and hypoxia Poor cough/gag reflex. Patient initiated on IV antibiotics and vent support Possible aspiration pneumonia which cannot be ruled out Coronavirus infection in the differential diagnosis, initial test negative, repeat pending. -- Sepsis with shock Patient with criteria for sepsis with elevated lactic acid BCx, SCx pending. Metabolic acidosis and hypotensive -- Bilateral pneumonia Patient initiated on IV cefepime and vancomycin ID consult requested Possible aspiration pneumonia also in the differential diagnosis -- Suspected COVID-19 virus infection Initial test undetermined, repeat Coronavirus PCR in a.m. Isolation precautions IV Solu-Medrol 60 every 8 --Elevated troponin could be demand ischemia, planned to initiate aspirin, statin, serial trop/ekg/ ordered for 2d echo and cardiology consult -- Hyponatremia monitor with gentle iv fluid -- Transaminitis Check acute hepatitis profile Possible secondary to ? Covid infection and underlying sepsis -- Pneumothorax, left Small pneumothorax No intervention at this point per intencivist -- COPD with exacerbation chronic smoker nebulizer tx, supplemental O2 -- Hyperglycemia could be steroid induced Check A1c and coverage for now -- Anemia, likely chronic Anemia work-up -- DVT prophylaxis On heparin and GI prophylaxis The high probability of a clinically significant, sudden or life threatening deterioration of the system(s) required my full and direct attention, interv ention and personal management. The aggregate critical care time was [35] minutes. This time is in addition to time spent performing reported procedures but includes the following: [x] Data Review and interpretation [x] Patient assessment and monitoring of vital signs [x] Documentation [x] Medication orders and management Daily clinical course 03/09: Hypotensive in AM, Dr. Inman placed right IJ CVC. Patient intiated on pressors. UOP 200 cc overnight. 03/10: Planned for extubation today, repeat covid test pending. RN called for elevated trop - ordered serial trop, ekg, 2d echo, aspirin, statin and placed cardiology consult. will cont to follow clinically, pt remains on levophed Subjective Date of service: 03/10/21 Interval history: Patient seen and examined remains intubated, on levophed planned for extubation today Discussed with RN, vitals noted Objective - Exam Narrative Exam: General appearance: intbuated sedated, ill appearing elderly gentleman. Eyes: non-icteric ENT: other (orally intubated and sedated.) Neck: supple, right IJ CVC inplace Respiratory: Bilateral: diminished breath sounds Cardiovascular: regular rate and rhythm Gastrointestinal: normoactive bowel sounds Extremities: no edema, pink and warm Psych: unable to assess Neuro: sedated. moves extremities : Savage in place. - Constitutional Vitals: Vital Signs - 12hr 03/10/21 03/10/21 03/10/21 02:46 03:00 03:16 Temperature Pulse Rate 74 75 73 Pulse Rate [ Bilateral Throughout] Respiratory 18 18 18 Rate Respiratory Rate [Bilateral Throughout] Blood Pressure 155/69 155/69 172/70 O2 Sat by Pulse 100 100 100 Oximetry 03/10/21 03/10/21 03/10/21 03:30 03:45 04:00 Temperature 98.1 F Pulse Rate 70 69 67 Pulse Rate [ Bilateral Throughout] Respiratory 18 18 18 Rate Respiratory Rate [Bilateral Throughout] Blood Pressure 172/70 119/64 119/64 O2 Sat by Pulse 100 100 100 Oximetry 03/10/21 03/10/21 03/10/21 04:15 04:18 04:30 Temperature Pulse Rate 66 68 Pulse Rate [ 68 Bilateral Throughout] Respiratory 18 18 Rate Respiratory 18 Rate [Bilateral Throughout] Blood Pressure 123/65 123/65 O2 Sat by Pulse 100 100 Oximetry 03/10/21 03/10/21 03/10/21 04:46 05:00 05:16 Temperature Pulse Rate 67 69 70 Pulse Rate [ Bilateral Throughout] Respiratory 18 18 18 Rate Respiratory Rate [Bilateral Throughout] Blood Pressure 125/62 123/63 126/60 O2 Sat by Pulse 100 100 99 Oximetry 03/10/21 03/10/21 03/10/21 05:30 05:46 06:00 Temperature Pulse Rate 70 69 68 Pulse Rate [ Bilateral Throughout] Respiratory 18 18 18 Rate Respiratory Rate [Bilateral Throughout] Blood Pressure 118/58 123/60 123/60 O2 Sat by Pulse 99 99 100 Oximetry 03/10/21 03/10/21 03/10/21 06:16 06:30 06:45 Temperature Pulse Rate 67 67 68 Pulse Rate [ Bilateral Throughout] Respiratory 18 18 18 Rate Respiratory Rate [Bilateral Throughout] Blood Pressure 124/62 128/60 124/64 O2 Sat by Pulse 100 100 100 Oximetry 03/10/21 03/10/21 03/10/21 07:00 07:16 08:08 Temperature 97.6 F Pulse Rate 67 66 70 Pulse Rate [ Bilateral Throughout] Respiratory 18 18 Rate Respiratory Rate [Bilateral Throughout] Blood Pressure 124/64 132/65 119/55 O2 Sat by Pulse 100 100 100 Oximetry 03/10/21 03/10/21 11:13 12:00 Temperature 97.7 F Pulse Rate 77 Pulse Rate [ Bilateral Throughout] Respiratory Rate Respiratory Rate [Bilateral Throughout] Blood Pressure 117/66 O2 Sat by Pulse 100 Oximetry - Labs CBC & Chem 7: 03/11/21 08:00 03/11/21 08:00 Labs: Abnormal lab results 03/09/21 03/09/21 03/09/21 Range/Units 07:40 18:09 23:53 WBC (4.5-11.0) K/mm3 Hgb (11.8-15.2) gm/dl MCV (84-94) fl Lymph % (Auto) (13.4-35.0) % [place] % (Auto) (0.0-7.3) % Lymph # (Auto) (1.2-5.4) K/mm3 [place] # (Auto) (0.0-0.8) K/mm3 Seg Neutrophils % (40.0-70.0) % Seg Neutrophils # (1.8-7.7) K/mm3 ABG pH 7.485 H (7.320-7.450) POC ABG pO2 179.1 H (83-108) mmHg ABG Hemoglobin 10.8 L (12.0-17.5) ABG Oxyhemoglobin 99.1 H (94-98) ABG Sodium 133.2 L (136.0-145.0) mmol/L ABG Chloride (98-107) mmol/L ABG Glucose 175 H (65-95) mg/dL Carboxyhemoglobin 0 L (0.5-1.5) Chloride (98-107) mmol/L BUN (9-20) mg/dL Glucose (75-100) mg/dL POC Glucose 167 H 210 H (70-105) mg/dL Calcium (8.4-10.2) mg/dL AST (5-40) units/L CK-MB (CK-2) (0.0-4.0) ng/mL CK-MB (CK-2) Rel Index (0-4) Troponin T (0.00-0.029) ng/mL Total Protein (6.3-8.2) g/dL Albumin (3.9-5) g/dL Triglycerides (2-149) mg/dL HDL Cholesterol (40-59) mg/dL Arterial Blood Glucose 175 H (65-95) mg/dL Arterial Blood Ionized Calcium 4.3 L (4.6-5.3) mg/dL 03/10/21 03/10/21 03/10/21 Range/Units 02:59 05:14 05:14 WBC 12.0 H (4.5-11.0) K/mm3 Hgb 11.7 L (11.8-15.2) gm/dl MCV 95 H (84-94) fl Lymph % (Auto) 2.6 L (13.4-35.0) % [place] % (Auto) 7.5 H (0.0-7.3) % Lymph # (Auto) 0.3 L (1.2-5.4) K/mm3 [place] # (Auto) 0.9 H (0.0-0.8) K/mm3 Seg Neutrophils % 89.8 H (40.0-70.0) % Seg Neutrophils # 10.8 H (1.8-7.7) K/mm3 ABG pH (7.320-7.450) POC ABG pO2 (83-108) mmHg ABG Hemoglobin 11.9 L (12.0-17.5) ABG Oxyhemoglobin (94-98) ABG Sodium (136.0-145.0) mmol/L ABG Chloride 108.0 H (98-107) mmol/L ABG Glucose 232 H (65-95) mg/dL Carboxyhemoglobin 0.3 L (0.5-1.5) Chloride 107.2 H (98-107) mmol/L BUN 48 H (9-20) mg/dL Glucose 218 H (75-100) mg/dL POC Glucose (70-105) mg/dL Calcium 7.9 L (8.4-10.2) mg/dL AST 41 H (5-40) units/L CK-MB (CK-2) (0.0-4.0) ng/mL CK-MB (CK-2) Rel Index (0-4) Troponin T (0.00-0.029) ng/mL Total Protein 5.7 L (6.3-8.2) g/dL Albumin 2.7 L (3.9-5) g/dL Triglycerides (2-149) mg/dL HDL Cholesterol (40-59) mg/dL Arterial Blood Glucose 232 H (65-95) mg/dL Arterial Blood Ionized Calcium 4.4 L (4.6-5.3) mg/dL 03/10/21 03/10/21 03/10/21 Range/Units 05:14 05:14 05:35 WBC (4.5-11.0) K/mm3 Hgb (11.8-15.2) gm/dl MCV (84-94) fl Lymph % (Auto) (13.4-35.0) % [place] % (Auto) (0.0-7.3) % Lymph # (Auto) (1.2-5.4) K/mm3 [place] # (Auto) (0.0-0.8) K/mm3 Seg Neutrophils % (40.0-70.0) % Seg Neutrophils # (1.8-7.7) K/mm3 ABG pH (7.320-7.450) POC ABG pO2 (83-108) mmHg ABG Hemoglobin (12.0-17.5) ABG Oxyhemoglobin (94-98) ABG Sodium (136.0-145.0) mmol/L ABG Chloride (98-107) mmol/L ABG Glucose (65-95) mg/dL Carboxyhemoglobin (0.5-1.5) Chloride (98-107) mmol/L BUN (9-20) mg/dL Glucose (75-100) mg/dL POC Glucose 210 H (70-105) mg/dL Calcium (8.4-10.2) mg/dL AST (5-40) units/L CK-MB (CK-2) 17.8 H (0.0-4.0) ng/mL CK-MB (CK-2) Rel Index 18.1 H (0-4) Troponin T 0.798 H* (0.00-0.029) ng/mL Total Protein (6.3-8.2) g/dL Albumin (3.9-5) g/dL Triglycerides 173 H (2-149) mg/dL HDL Cholesterol 36 L (40-59) mg/dL Arterial Blood Glucose (65-95) mg/dL Arterial Blood Ionized Calcium (4.6-5.3) mg/dL 03/10/21 Range/Units 11:43 WBC (4.5-11.0) K/mm3 Hgb (11.8-15.2) gm/dl MCV (84-94) fl Lymph % (Auto) (13.4-35.0) % [place] % (Auto) (0.0-7.3) % Lymph # (Auto) (1.2-5.4) K/mm3 [place] # (Auto) (0.0-0.8) K/mm3 Seg Neutrophils % (40.0-70.0) % Seg Neutrophils # (1.8-7.7) K/mm3 ABG pH (7.320-7.450) POC ABG pO2 (83-108) mmHg ABG Hemoglobin (12.0-17.5) ABG Oxyhemoglobin (94-98) ABG Sodium (136.0-145.0) mmol/L ABG Chloride (98-107) mmol/L ABG Glucose (65-95) mg/dL Carboxyhemoglobin (0.5-1.5) Chloride (98-107) mmol/L BUN (9-20) mg/dL Glucose (75-100) mg/dL POC Glucose 221 H (70-105) mg/dL Calcium (8.4-10.2) mg/dL AST (5-40) units/L CK-MB (CK-2) (0.0-4.0) ng/mL CK-MB (CK-2) Rel Index (0-4) Troponin T (0.00-0.029) ng/mL Total Protein (6.3-8.2) g/dL Albumin (3.9-5) g/dL Triglycerides (2-149) mg/dL HDL Cholesterol (40-59) mg/dL Arterial Blood Glucose (65-95) mg/dL Arterial Blood Ionized Calcium (4.6-5.3) mg/dL HEART Score - HEART Score Age: > 65 Risk factors: No known risk factors Troponin: Troponin T 0.798 ng/mL (0.00-0.029) H* 03/10/21 05:14 Troponin: < normal limit - Critical Actions Critical Actions: 0-3 pts:0.9-1.7%risk of adverse cardiac event.Candidate for discharge
--- NOTE | 2021-03-10 14:41 | Progress Note ---
Assessment and Plan Cultures: Blood culture pending Covid PCR: Negative A/P: 65-year-old man unknown past medical history as a PUI #Community-acquired pneumonia. Covid testing negative. #Acute hypoxic respiratory failure: Currently vent Recs: -Continue cefepime to complete 5 days given elevated procalcitonin. -Anticoagulation per hospital protocol. Thank you for the consult, we will continue to follow. Esther Benedict MD [facility] O: [phone] F: [phone] Subjective Date of service: 03/10/21 Interval history: Afebrile, white count 12. Blood cultures no growth so far. Covid negative. Remains on the vent. Imaging personally reviewed: Chest x-ray: Slight improvement in bilateral pneumonia Objective - Exam Narrative Exam: Physical exam deferred to reduce risk of transmission of COVID-19. Please refer to primary team's note. - Constitutional Vitals: Vital Signs Temp Pulse Resp BP Pulse Ox 97.7 F 77 18 117/66 100 03/10/21 12:00 03/10/21 11:13 03/10/21 07:16 03/10/21 11:13 03/10/21 11:13 Temperature -Last 24 Hours Temperature 97.7 F Temperature 97.6 F Temperature 98.1 F Temperature 98.0 F Temperature 97.8 F Temperature 97.5 F - Labs CBC & Chem 7: 03/10/21 05:14 03/10/21 05:14 Labs: Abnormal lab results 03/09/21 03/09/21 03/09/21 Range/Units 07:40 18:09 23:53 WBC (4.5-11.0) K/mm3 Hgb (11.8-15.2) gm/dl MCV (84-94) fl Lymph % (Auto) (13.4-35.0) % Spencer % (Auto) (0.0-7.3) % Lymph # (Auto) (1.2-5.4) K/mm3 Spencer # (Auto) (0.0-0.8) K/mm3 Seg Neutrophils % (40.0-70.0) % Seg Neutrophils # (1.8-7.7) K/mm3 ABG pH 7.485 H (7.320-7.450) POC ABG pO2 179.1 H (83-108) mmHg ABG Hemoglobin 10.8 L (12.0-17.5) ABG Oxyhemoglobin 99.1 H (94-98) ABG Sodium 133.2 L (136.0-145.0) mmol/L ABG Chloride (98-107) mmol/L ABG Glucose 175 H (65-95) mg/dL Carboxyhemoglobin 0 L (0.5-1.5) Chloride (98-107) mmol/L BUN (9-20) mg/dL Glucose (75-100) mg/dL POC Glucose 167 H 210 H (70-105) mg/dL Calcium (8.4-10.2) mg/dL AST (5-40) units/L CK-MB (CK-2) (0.0-4.0) ng/mL CK-MB (CK-2) Rel Index (0-4) Troponin T (0.00-0.029) ng/mL Total Protein (6.3-8.2) g/dL Albumin (3.9-5) g/dL Triglycerides (2-149) mg/dL HDL Cholesterol (40-59) mg/dL Arterial Blood Glucose 175 H (65-95) mg/dL Arterial Blood Ionized Calcium 4.3 L (4.6-5.3) mg/dL 03/10/21 03/10/21 03/10/21 Range/Units 02:59 05:14 05:14 WBC 12.0 H (4.5-11.0) K/mm3 Hgb 11.7 L (11.8-15.2) gm/dl MCV 95 H (84-94) fl Lymph % (Auto) 2.6 L (13.4-35.0) % Spencer % (Auto) 7.5 H (0.0-7.3) % Lymph # (Auto) 0.3 L (1.2-5.4) K/mm3 Spencer # (Auto) 0.9 H (0.0-0.8) K/mm3 Seg Neutrophils % 89.8 H (40.0-70.0) % Seg Neutrophils # 10.8 H (1.8-7.7) K/mm3 ABG pH (7.320-7.450) POC ABG pO2 (83-108) mmHg ABG Hemoglobin 11.9 L (12.0-17.5) ABG Oxyhemoglobin (94-98) ABG Sodium (136.0-145.0) mmol/L ABG Chloride 108.0 H (98-107) mmol/L ABG Glucose 232 H (65-95) mg/dL Carboxyhemoglobin 0.3 L (0.5-1.5) Chloride 107.2 H (98-107) mmol/L BUN 48 H (9-20) mg/dL Glucose 218 H (75-100) mg/dL POC Glucose (70-105) mg/dL Calcium 7.9 L (8.4-10.2) mg/dL AST 41 H (5-40) units/L CK-MB (CK-2) (0.0-4.0) ng/mL CK-MB (CK-2) Rel Index (0-4) Troponin T (0.00-0.029) ng/mL Total Protein 5.7 L (6.3-8.2) g/dL Albumin 2.7 L (3.9-5) g/dL Triglycerides (2-149) mg/dL HDL Cholesterol (40-59) mg/dL Arterial Blood Glucose 232 H (65-95) mg/dL Arterial Blood Ionized Calcium 4.4 L (4.6-5.3) mg/dL 03/10/21 03/10/21 03/10/21 Range/Units 05:14 05:14 05:35 WBC (4.5-11.0) K/mm3 Hgb (11.8-15.2) gm/dl MCV (84-94) fl Lymph % (Auto) (13.4-35.0) % Spencer % (Auto) (0.0-7.3) % Lymph # (Auto) (1.2-5.4) K/mm3 Spencer # (Auto) (0.0-0.8) K/mm3 Seg Neutrophils % (40.0-70.0) % Seg Neutrophils # (1.8-7.7) K/mm3 ABG pH (7.320-7.450) POC ABG pO2 (83-108) mmHg ABG Hemoglobin (12.0-17.5) ABG Oxyhemoglobin (94-98) ABG Sodium (136.0-145.0) mmol/L ABG Chloride (98-107) mmol/L ABG Glucose (65-95) mg/dL Carboxyhemoglobin (0.5-1.5) Chloride (98-107) mmol/L BUN (9-20) mg/dL Glucose (75-100) mg/dL POC Glucose 210 H (70-105) mg/dL Calcium (8.4-10.2) mg/dL AST (5-40) units/L CK-MB (CK-2) 17.8 H (0.0-4.0) ng/mL CK-MB (CK-2) Rel Index 18.1 H (0-4) Troponin T 0.798 H* (0.00-0.029) ng/mL Total Protein (6.3-8.2) g/dL Albumin (3.9-5) g/dL Triglycerides 173 H (2-149) mg/dL HDL Cholesterol 36 L (40-59) mg/dL Arterial Blood Glucose (65-95) mg/dL Arterial Blood Ionized Calcium (4.6-5.3) mg/dL 03/10/21 Range/Units 11:43 WBC (4.5-11.0) K/mm3 Hgb (11.8-15.2) gm/dl MCV (84-94) fl Lymph % (Auto) (13.4-35.0) % Spencer % (Auto) (0.0-7.3) % Lymph # (Auto) (1.2-5.4) K/mm3 Spencer # (Auto) (0.0-0.8) K/mm3 Seg Neutrophils % (40.0-70.0) % Seg Neutrophils # (1.8-7.7) K/mm3 ABG pH (7.320-7.450) POC ABG pO2 (83-108) mmHg ABG Hemoglobin (12.0-17.5) ABG Oxyhemoglobin (94-98) ABG Sodium (136.0-145.0) mmol/L ABG Chloride (98-107) mmol/L ABG Glucose (65-95) mg/dL Carboxyhemoglobin (0.5-1.5) Chloride (98-107) mmol/L BUN (9-20) mg/dL Glucose (75-100) mg/dL POC Glucose 221 H (70-105) mg/dL Calcium (8.4-10.2) mg/dL AST (5-40) units/L CK-MB (CK-2) (0.0-4.0) ng/mL CK-MB (CK-2) Rel Index (0-4) Troponin T (0.00-0.029) ng/mL Total Protein (6.3-8.2) g/dL Albumin (3.9-5) g/dL Triglycerides (2-149) mg/dL HDL Cholesterol (40-59) mg/dL Arterial Blood Glucose (65-95) mg/dL Arterial Blood Ionized Calcium (4.6-5.3) mg/dL
[2021-03-10] MEDS: ASPIRIN 81 MG TAB CHEW PO SCH (14:47)
--- NOTE | 2021-03-10 18:06 | Electrocardiograph Report ---
[facility] Test Date: 2021-03-09 Test Time: 08:34:52 Pat Name: TISH AYALA Department: Room: A262 1 Gender: M Communication Electronic Technician: BAO : 1955 Requested By: ROMINA ROE Order Number: [id number] Reading MD: Hans Armstrong Measurements Intervals [place] Rate: 87 P: 0 AL: 70 QRS: 60 QRSD: 89 T: 69 QT: 432 QTc: 520 Interpretive Statements Sinus rhythm Anterior infarct, acute Prolonged QT interval Compared to ECG 03/08/2021 14:41:[address] elevation infarct is now evident Electronically Signed On 03-10-2021 18:06:10 EDT by Hans Armstrong
--- NOTE | 2021-03-10 18:14 | Electrocardiograph Report ---
[facility] Test Date: 2021-03-10 Test Time: 10:40:57 Pat Name: TISH AYALA Department: Room: A262 1 Gender: M Marketing Director: SHAE : 1955 Requested By: USMAN JAY Order Number: [id number] Reading MD: Hans Arsmtrong Measurements Intervals [place] Rate: 77 P: 83 MI: 160 QRS: 20 QRSD: 92 T: 259 QT: 568 QTc: 643 Interpretive Statements Sinus rhythm Probable left atrial enlargement Deep T wave inversions consistent with acute inferolateral ischemia Prolonged QT interval Compared to ECG 03/09/2021 08:34:52 Current ECG consistent with anterolateral OH in evolution Electronically Signed On 03-10-2021 18:14:05 EDT by Hans Armstrong
[2021-03-10] MEDS: ARFORMOTEROL 15 MCG/2 ML NEBU IH SCH (20:05)
[2021-03-10] MEDS ORDERED: AMIODARONE 900 MG in DEXTROSE 5% IN WATER 482 ML IV SCH (23:45)
--- NOTE | 2021-03-11 00:14 | Event Note ---
Date: 03/10/21 Jackie Marvin called for Vtach arresst, pt maintained pulse, but respirations decreased to 3-4 for a short period but quickly recovered. Pt was shocked x1, HR remained in 140's -170's. Pt given 150mg Amiodarone bolus, and was responsive with HR 100-110. Will place cardiac consult, and continue to monitor.
--- NOTE | 2021-03-11 00:14 | Event Note ---
Date: 03/11/21 The patient was evaluated in the emergency department for symptoms described in the history of present illness. He/she was evaluated in the context of the global COVID-19 pandemic, which necessitated consideration that the patient might be at risk for infection with the virus that causes COVID-19. Institutional protocols and algorithms that pertain to the evaluation of patients at risk for COVID-19 are in a state of rapid change based on information released by regulatory bodies including the CDC and federal and state organizations. These policies and algorithms were followed during the patient's care in the emergency department. Please note that these policies, procedures and recommendations changed on a rapid basis. I responded to [employer] [facility] called overhead, to this patient in the intensive care unit. Resuscitative efforts being directed by hospital physician, and nurse practitioner respectively. ER assistance is initially requested for airway management. However, after initial resuscitation, the patient is awake, breathing spontaneously, moving 4 extremities, and does not appear to be in significant respiratory distress. Hospital team has requested that we hold off on intubation for now. The emergency room remains available, should this patient's respiratory status decompensate, and require intubation.
[2021-03-11] MEDS: MIDAZOLAM 2 MG/2 ML INJ IV PRN ×2 (00:47→03:18)
[2021-03-11] MEDS ORDERED: ROCURONIUM 50 MG/5 ML INJ IV ONE (01:48)
[2021-03-11] MEDS ORDERED: ETOMIDATE 20 MG/10 ML INJ IV ONE (01:48)
[2021-03-11] MEDS: CEFEPIME/NS 2 GM/100 ML 2 GM/100 ML BAG IV SCH ×2 (03:23→15:16)
[2021-03-11] MEDS: methylPREDNISolone Sod Succinate 125 MG/2 ML INJ IV SCH ×2 (06:58→15:18)
[2021-03-11] MEDS: ARFORMOTEROL 15 MCG/2 ML NEBU IH SCH ×2 (08:00→20:32)
[2021-03-11] MEDS: BUDESONIDE 0.5 MG/2 ML NEBU IH SCH ×2 (08:00→20:32)
[2021-03-11 08:34] LABS: Hematocrit 34.4 % (35.5-45.6); Hemoglobin 11.3 gm/dl (11.8-15.2); Mean Corpuscular HGB Conc 33 % (32-34); Mean Corpuscular Volume 95 fl (84-94); Platelet Count 204 K/mm3 (140-440); Red Blood Count 3.62 M/mm3 (3.65-5.03); Red Cell Distribution Width 13.2 % (13.2-15.2)
[2021-03-11 08:52] LABS: Alanine Aminotransferase 11 units/L (7-56); Albumin 2.7 g/dL (3.9-5); BUN/Creatinine Ratio 38; Blood Urea Nitrogen 34 mg/dL (9-20); Calcium 8.5 mg/dL (8.4-10.2); Hemolysis Index 3
[2021-03-11] MEDS ORDERED: HEPARIN 10,000 UNITS/10 ML VIAL IV PRN ×2 (09:57→19:05)
[2021-03-11] MEDS: ASPIRIN 81 MG TAB CHEW PO SCH (09:59)
[2021-03-11] MEDS: SENNOSIDES/DOCUSATE SODIUM 8.6/50 MG TAB FEEDTUBE SCH (09:59)
[2021-03-11] MEDS: HEPARIN 5,000 UNIT/1 ML VIAL SUB-Q SCH (09:59)
[2021-03-11] MEDS: FAMOTIDINE 20 MG TAB PO SCH (09:59)
[2021-03-11] MEDS ORDERED: HEPARIN/ 0.45% NACL DRIP 25,000 UNIT/500 ML BAG IV SCH ×2 (10:00→20:00)
[2021-03-11] MEDS ORDERED: TIROFIBAN/NS 12,500 MCG/250 ML BAG IV SCH (10:00)
--- NOTE | 2021-03-11 10:12 | Consultation ---
History of Present Illness Consult date: 03/11/21 Consult reason: cardiac arrest, elevated troponin History of present illness: The patient is a 65-year-old man admitted to this hospital 4 days ago with altered mental status, respiratory distress and fever. He was diagnosed with p neumonia, underwent a COVID-19 test that was reported indeterminate, and has been managed in the ICU on antibiotics and respiratory support. He has been under the management of internal medicine, intensive care service and infectious disease. Last evening, he suffered a ventricular tachycardia arrest, prompting a successful ACLS resuscitation, currently back in sinus rhythm on amiodarone infusion. He is alert and oriented, in no acute distress. Cardiology consultation was requested for further assessment. I reviewed the patient's records and serial EKGs since since admission 4 days ago. On March 08, his admission EKG showed a sinus tachycardia, with isoelectric ST segments, no ischemic changes. A follow-up EKG in the morning of March 09 showed an acute injury pattern with an ST elevation myocardial infarction across the precordium. On the morning of March 10, a follow-up EKG showed the evolution of the anterior infarct into deep T wave inversions in the inferolateral leads. No communication was extended to the cardiology service for consultative analysis of these acute PR findings on 03/09 and 03/10. The patient is a poor historian, unable to articulate any prior cardiac history or prior cardiac work-up. Chest x-ray shows a normal-sized cardiac silhouette, with interstitial changes of COPD in both lung leone and possible right lower lobe infiltrate. The troponin levels were mildly elevated with a peak of 0.79. Past History Past Medical History: other (Past medical history not known) Past Surgical History: Other (Not known) Social history: full code Family history: hypertension Medications and Allergies Allergies Allergy/AdvReac Type Severity Reaction Status Date / Time Unable to Assess Allergy Verified 03/08/21 14:37 Active Meds: Active Medications Acetaminophen (Acetaminophen 325 Mg Tab) 650 mg PO Q4H PRN PRN Reason: Pain MILD(1-3)/Fever >100.5/MYERS Lipase/Protease/Amylase (Lipase 10,500/Protease 25,000/Amylase 43,750 (Units) Dr Johnson) 1 each FEEDTUBE PRN PRN PRN Reason: For Clogged Feeding Tube Arformoterol Tartrate (Arformoterol 15 Mcg/2 Ml Nebu) 15 mcg IH Q12HRT [facility] Last Admin: 03/11/21 08:00 Dose: 15 mcg Documented by: Aspirin (Aspirin 81 Mg Tab Chew) 81 mg PO QDAY [facility] Last Admin: 03/10/21 14:47 Dose: 81 mg Documented by: Atorvastatin Calcium (Atorvastatin 40 Mg Tab) 40 mg PO QHS [facility] Budesonide (Budesonide 0.5 Mg/2 Ml Nebu) 0.5 mg IH Q12HRT [facility] Last Admin: 03/11/21 08:00 Dose: 0.5 mg Documented by: Clopidogrel Bisulfate (Clopidogrel 300 Mg Tab) 600 mg PO ONCE ONE Stop: 03/11/21 10:01 Famotidine (Famotidine 20 Mg Tab) 20 mg PO BID [facility] Last Admin: 03/10/21 22:23 Dose: 20 mg Documented by: Heparin Sodium (Porcine) (Heparin 5,000 Unit/1 Ml Vial) 5,000 unit SUB-Q Q12HR [facility] Last Admin: 03/10/21 22:23 Dose: 5,000 unit Documented by: Heparin Sodium (Porcine) (Heparin 10,000 Units/10 Ml Vial) 2,100 unit 40 uni t/kg (2100 unit) IV Q6H PRN PRN Reason: Anti-Xa Assay < 0.1 units/ml Hydromorphone HCl (Hydromorphone 1 Mg/1 Ml Inj) 0.5 mg IV Q3H PRN PRN Reason: Pain , Severe (7-10) Hydrophilic Ointment (Lip Therapy Vaseline) 1 applic TP Q2HR PRN PRN Reason: Dry Lips Norepinephrine (Levophed Drip 4 Mg/Ns 250 Ml) 4 mg in 250 mls @ 7.5 mls/hr IV TITR PRINCESS; Protocol Last Titration: 03/10/21 14:00 Dose: 0 mcg/min, 0 mls/hr Documented by: Cefepime HCl (Cefepime/Ns 2 Gm/100 Ml) 2 gm in 100 mls @ 200 mls/hr IV Q12H [facility]; Protocol Stop: 03/14/21 02:29 Last Admin: 03/11/21 03:23 Dose: 200 mls/hr Documented by: Amiodarone HCl 900 mg/ (Dextrose) 500 mls @ 33.333 mls/hr IV DIRECT PRINCESS; Protocol Last Admin: 03/11/21 00:14 Dose: 1 mg/min, 33.333 mls/hr Documented by: Heparin Sodium/Sodium Chloride (Heparin/ 0.45% Nacl-25,000 Unit/500 Ml) 25,000 unit in 500 mls @ 15.54 mls/hr IV TITRATE [facility]; Protocol Tirofiban/Sodium Chloride (Aggrastat Drip (12.5 Mg/250 Ml)) 12,500 mcg in 250 mls @ 0 mls/hr IV DIRECT PRINCESS; Protocol Insulin Human Lispro (Insulin Lispro 100 Unit/Ml) 0 unit SUB-Q Q6HR [facility]; Protocol Last Admin: 03/10/21 18:23 Dose: Not Given Documented by: Lisinopril (Lisinopril 5 Mg Tab) 2.5 mg PO QDAY [facility] Methylprednisolone Sodium Succinate (Methylprednisolone Sod Succinate 125 Mg/2 Ml Inj) 60 mg IV Q8HR [facility] Last Admin: 03/11/21 06:58 Dose: 60 mg Documented by: Metoclopramide HCl (Metoclopramide 10 Mg/2 Ml Inj) 10 mg IV Q6H PRN PRN Reason: Nausea And Vomiting Morphine Sulfate (Morphine 2 Mg/1 Ml Inj) 2 mg IV Q4H PRN PRN Reason: Pain, Moderate (4-6) Multi-Ingred Cream/Lotion/Oil/Oint (Mineral Oil/Petrolatum, White Ophth Oint 3.5 Gm) 1 applic OU Q4HR PRN PRN Reason: Dry Eye(s) Ondansetron HCl (Ondansetron 4 Mg/2 Ml Inj) 4 mg IV Q3H PRN PRN Reason: Nausea And Vomiting Senna/Docusate Sodium (Sennosides/Docusate Sodium 8.6/50 Mg Tab) 1 tab FEEDTUBE BID [facility] Last Admin: 03/10/21 22:23 Dose: 1 tab Documented by: Simple Syrup (Simple Syrup 15 Ml) 15 ml FEEDTUBE PRN PRN PRN Reason: Hypoglycemia Simple Syrup (Simple Syrup 15 Ml) 30 ml FEEDTUBE PRN PRN PRN Reason: Hypoglycemia Sodium Bicarbonate (Sodium Bicarbonate 325 Mg Tab) 325 mg FEEDTUBE PRN PRN PRN Reason: For Clogged Feeding Tube Sodium Chloride (Sodium Chloride 0.9% 10 Ml Flush Syringe) 10 ml IV BID [facility] Last Admin: 03/10/21 10:02 Dose: 10 ml Documented by: Sodium Chloride (Sodium Chloride 0.9% 10 Ml Flush Syringe) 10 ml IV PRN PRN PRN Reason: LINE FLUSH Review of Systems ROS unobtainable: due to mental status (Patient is alert, but unable to communicate ROS due to language barrier) Physical Examination Vital Signs Pulse Ox 96 03/08/21 14:22 General appearance: no acute distress HEENT: Positive: PERRL Neck: Positive: neck supple Cardiac: Positive: Reg Rate and Rhythm Lungs: Positive: Decreased Breath Sounds Neuro: Positive: Grossly Intact Abdomen: Positive: Soft Male genitourinary: Positive: deferred Skin: Positive: Clear Extremities: Absent: edema Results 03/11/21 08:00 03/11/21 08:00 Cardiac Enzymes 03/10/21 03/11/21 Range/Units 05:14 08:00 AST 26 (5-40) units/L CK-MB (CK-2) 17.8 H (0.0-4.0) ng/mL Lipids 03/10/21 Range/Units 05:14 Triglycerides 173 H (2-149) mg/dL Cholesterol 130 (50-199) mg/dL HDL Cholesterol 36 L (40-59) mg/dL Cholesterol/HDL Ratio 3.61 % CBC 03/11/21 Range/Units 08:00 WBC 14.7 H (4.5-11.0) K/mm3 RBC 3.62 L (3.65-5.03) M/mm3 Hgb 11.3 L (11.8-15.2) gm/dl Hct 34.4 L (35.5-45.6) % Plt Count 204 (140-440) K/mm3 Comprehensive Metabolic Panel 03/11/21 Range/Units 08:00 Sodium 141 (137-145) mmol/L Potassium 4.3 (3.6-5.0) mmol/L Chloride 106.6 (98-107) mmol/L Carbon Dioxide 30 (22-30) mmol/L BUN 34 H (9-20) mg/dL Creatinine 0.9 (0.8-1.3) mg/dL Glucose 167 H (75-100) mg/dL Calcium 8.5 (8.4-10.2) mg/dL AST 26 (5-40) units/L ALT 11 (7-56) units/L Alkaline Phosphatase 39 (35-129) units/L Total Protein 6.1 L (6.3-8.2) g/dL Albumin 2.7 L (3.9-5) g/dL EKG interpretations - Telemetry EKG Rhythm: Sinus Rhythm (With acute anterolateral ST elevation myocardial infarction in evolution) Assessment and Plan - Patient Problems (1) Acute myocardial infarction Current Visit: Yes Status: Acute Plan to address problem: Patient was admitted with acute respiratory illness with altered mental status, during his hospitalization developed acute ST elevation myocardial infarction, now complicated by ventricular fibrillation arrest. He is status post successful resuscitation, stable hemodynamics on intravenous amiodarone. Recommendations: We will order heparin, Aggrastat, clopidogrel and continue aspirin. Start low-dose ramipril, and add atorvastatin. Echocardiogram for left ventricular function assessment. After stabilization on antiplatelets and anticoagulants, we will proceed with immediate cardiac catheterization and coronary angiography.
[2021-03-11] MEDS ORDERED: CLOPIDOGREL 300 MG TAB PO ONE (10:30)
[2021-03-11] MEDS ORDERED: LISINOPRIL 5 MG TAB PO SCH (11:00)
[2021-03-11 11:25] LABS: INR 1.02 (0.87-1.13)
[2021-03-11 11:26] LABS: Partial Thromboplastin Time 34.8 Sec. (24.2-36.6)
[2021-03-11] MEDS: INSULIN LISPRO 100 UNIT/ML SUB-Q SCH ×2 (11:30→20:07)
[2021-03-11] MEDS ORDERED: HEPARIN/NS 5000 UNIT/500ML 1,000 ML IR ONE (12:04)
[2021-03-11] MEDS ORDERED: HEPARIN 10,000 UNITS/10 ML VIAL ONE (12:05)
[2021-03-11] MEDS ORDERED: LIDOCAINE (2%) 20 MG/1 ML VIAL 20 ML MDV INFILTRATI ONE ×2 (12:05→12:28)
[2021-03-11] MEDS ORDERED: NITROGLYCERIN SYRINGE 3 ML ONE (12:05)
[2021-03-11] MEDS ORDERED: METOPROLOL TARTRATE 5 MG/5 ML INJ IV ONE (12:28)
[2021-03-11] MEDS ORDERED: SODIUM CHLORIDE 0.9% 500 ML 500 ML ONE (12:29)
[2021-03-11] MEDS: MIDAZOLAM 2 MG/2 ML INJ ONE ×2 (12:39→12:42)
[2021-03-11] MEDS: fentaNYL 100 MCG/2 ML INJ ONE ×4 (12:39→13:23)
[2021-03-11] MEDS: MORPHINE 10 MG/1 ML INJ ONE ×2 (13:02→13:22)
[2021-03-11] MEDS ORDERED: HEPARIN/NS 5000 UNIT/500ML 500 ML IR ONE (13:04)
--- NOTE | 2021-03-11 13:56 | Event Note ---
Date: 03/11/21 Cardiac catheterization completed, with successful coronary intervention to the mid LAD, and successful implantation of the 3.0 x 15 mm drug-eluting stent. No complications. Continue post [place] guideline directed medical therapy including dual oral antiplatelet therapy with Plavix.
--- NOTE | 2021-03-11 13:57 | Progress Note ---
Assessment and Plan 65 y/o male with acute respiratory, exact etiology unknown 03/11/21: Follow up cath results. Monitor volume status. Maintain potassium of 4 and mag of 2. monitor renal function. Goal directed medical therapy. Wean FiO2 for sats >88% down to baseline of 2 liters NC. Will continue to follow. Smoking cessation. 03/10/21: Sedation stopped and now discontinued from OCT. Suspect that when patient starts waking up he can be extubated, no matter what time this is, even if it is the overnight associate. The repeat EKG still shows some ST elevation in V3 but T waves have inverted V4, V5 and V6. Per the tech, the tech from yesterday did an EKG off the wrong order but the EKG showing ST elevations was not shown to a physician. Will order Troponin now and obtain 2D echo once COVID results are back. At this point, pending these labs will determine cardiology consult. As stated before, hemodynamically the patient is stable. Tech needs order for EKG but as I explained, not able to back date an order and there was not an order for that EKG to begin with. Very difficult case in regards to EKG. Will speak with risk about this. 1. Continue supportive measures 2. CXR is stable and IJ in good position 3. Per Nurse, patient has COPD and chronic respiratory failure and is still smoking. Guarded prognosis Subjective Date of service: 03/11/21 Interval history: Patient seen and evaluated in [employer] prior to cath with PCI. Patient had vtach arrest and required defibrillation but did not require intubation. Patient is awake and alert. about to transfer over to cath table. Prior to last nights event, he was stable on 4 liters (baseline is 2), but no on venturi mask. Objective Vital Signs - 12hr 03/11/21 03/11/21 03/11/21 02:01 02:15 02:31 Temperature Pulse Rate 97 H 99 H 93 H Pulse Rate [ Bilateral Throughout] Pulse Rate [ Right Radial] Respiratory 11 L 12 12 Rate Respiratory Rate [Bilateral Throughout] Blood Pressure 125/56 125/56 125/68 O2 Sat by Pulse 76 L Oximetry 03/11/21 03/11/21 03/11/21 02:45 03:01 03:15 Temperature Pulse Rate 103 H 96 H 123 H Pulse Rate [ Bilateral Throughout] Pulse Rate [ Right Radial] Respiratory 18 14 25 H Rate Respiratory Rate [Bilateral Throughout] Blood Pressure 125/68 138/72 138/72 O2 Sat by Pulse 42 L Oximetry 03/11/21 03/11/21 03/11/21 03:30 03:45 04:00 Temperature Pulse Rate 90 104 H 91 H Pulse Rate [ Bilateral Throughout] Pulse Rate [ 101 H Right Radial] Respiratory 13 13 16 Rate Respiratory Rate [Bilateral Throughout] Blood Pressure 114/58 147/73 101/65 O2 Sat by Pulse 100 Oximetry 03/11/21 03/11/21 03/11/21 04:15 04:31 04:45 Temperature Pulse Rate 88 86 85 Pulse Rate [ Bilateral Throughout] Pulse Rate [ Right Radial] Respiratory 14 14 14 Rate Respiratory Rate [Bilateral Throughout] Blood Pressure 101/65 120/66 113/71 O2 Sat by Pulse Oximetry 03/11/21 03/11/21 03/11/21 05:01 05:15 05:31 Temperature Pulse Rate 87 98 H 100 H Pulse Rate [ Bilateral Throughout] Pulse Rate [ Right Radial] Respiratory 13 14 16 Rate Respiratory Rate [Bilateral Throughout] Blood Pressure 125/71 125/71 135/82 O2 Sat by Pulse Oximetry 03/11/21 03/11/21 03/11/21 05:45 06:00 06:15 Temperature Pulse Rate 103 H 101 H 113 H Pulse Rate [ Bilateral Throughout] Pulse Rate [ Right Radial] Respiratory 16 18 22 Rate Respiratory Rate [Bilateral Throughout] Blood Pressure 135/82 133/83 133/83 O2 Sat by Pulse Oximetry 03/11/21 03/11/21 03/11/21 06:31 06:45 07:01 Temperature Pulse Rate 94 H 95 H 89 Pulse Rate [ Bilateral Throughout] Pulse Rate [ Right Radial] Respiratory 14 19 16 Rate Respiratory Rate [Bilateral Throughout] Blood Pressure 133/65 133/65 157/76 O2 Sat by Pulse Oximetry 03/11/21 03/11/21 03/11/21 07:15 07:31 07:45 Temperature Pulse Rate 85 83 84 Pulse Rate [ Bilateral Throughout] Pulse Rate [ Right Radial] Respiratory 15 16 17 Rate Respiratory Rate [Bilateral Throughout] Blood Pressure 134/74 116/68 127/73 O2 Sat by Pulse 97 Oximetry 03/11/21 03/11/21 03/11/21 08:00 08:16 08:31 Temperature 97.9 F Pulse Rate 90 85 87 Pulse Rate [ 100 H Bilateral Throughout] Pulse Rate [ 90 Right Radial] Respiratory 14 16 14 Rate Respiratory 18 Rate [Bilateral Throughout] Blood Pressure 127/73 136/73 112/70 O2 Sat by Pulse 100 89 Oximetry 03/11/21 03/11/21 03/11/21 08:45 09:01 09:15 Temperature Pulse Rate 85 93 H 106 H Pulse Rate [ Bilateral Throughout] Pulse Rate [ Right Radial] Respiratory 16 20 15 Rate Respiratory Rate [Bilateral Throughout] Blood Pressure 135/73 135/68 135/68 O2 Sat by Pulse 97 95 95 Oximetry 03/11/21 03/11/21 03/11/21 09:31 09:45 10:00 Temperature Pulse Rate 95 H 88 Pulse Rate [ Bilateral Throughout] Pulse Rate [ Right Radial] Respiratory 15 16 Rate Respiratory Rate [Bilateral Throughout] Blood Pressure 130/67 127/74 O2 Sat by Pulse 97 82 L 98 Oximetry 03/11/21 03/11/21 03/11/21 10:01 10:15 10:31 Temperature Pulse Rate 88 86 84 Pulse Rate [ Bilateral Throughout] Pulse Rate [ Right Radial] Respiratory 15 14 16 Rate Respiratory Rate [Bilateral Throughout] Blood Pressure 143/73 151/70 148/61 O2 Sat by Pulse 83 L 82 L 84 Oximetry 03/11/21 03/11/21 03/11/21 10:35 10:45 11:01 Temperature Pulse Rate 84 85 82 Pulse Rate [ Bilateral Throughout] Pulse Rate [ Right Radial] Respiratory 14 14 Rate Respiratory Rate [Bilateral Throughout] Blood Pressure 148/61 152/69 146/68 O2 Sat by Pulse 85 100 Oximetry 03/11/21 03/11/21 03/11/21 11:15 11:30 11:45 Temperature Pulse Rate 80 86 84 Pulse Rate [ Bilateral Throughout] Pulse Rate [ Right Radial] Respiratory 15 15 14 Rate Respiratory Rate [Bilateral Throughout] Blood Pressure 152/69 147/74 147/62 O2 Sat by Pulse 100 100 100 Oximetry 03/11/21 12:00 Temperature 97.6 F Pulse Rate 87 Pulse Rate [ Bilateral Throughout] Pulse Rate [ 87 Right Radial] Respiratory 17 Rate Respiratory Rate [Bilateral Throughout] Blood Pressure O2 Sat by Pulse 100 Oximetry Constitutional: comatose Eyes: non-icteric ENT: other (orally intubated and sedated.) Neck: supple Effort: normal Ascultation: Bilateral: diminished breath sounds Cardiovascular: regular rate and rhythm Gastrointestinal: normoactive bowel sounds Extremities: no edema, pink and warm Neurologic: unable to assess CBC and BMP: 03/11/21 08:00 03/11/21 08:00 ABG, PT/INR, D-dimer: ABG ABG pH 7.352 (7.320-7.450) 03/10/21 02:59 POC ABG pCO2 44.5 mmHg (32.0-48.0) 03/10/21 02:59 ABG pCO2 43.0 mm Hg 03/08/21 15:12 POC ABG pO2 105.3 mmHg (83-108) 03/10/21 02:59 ABG pO2 381.9 mm Hg (80.0-90.0) H 03/08/21 15:12 POC ABG HCO3 24.1 03/10/21 02:59 ABG O2 Saturation 97.6 (0-100) 03/10/21 02:59 PT/INR, D-dimer PT 13.9 Sec. (12.2-14.9) 03/11/21 10:40 INR 1.02 (0.87-1.13) 03/11/21 10:40 D-Dimer 832.06 ng/mlDDU (0-234) H 03/08/21 15:49 Abnormal lab findings: Abnormal Labs 03/08/21 03/08/21 03/08/21 15:12 15:49 15:49 WBC RBC Hgb Hct MCV 95 H RDW 12.8 L Plt Count Lymph % (Auto) 5.1 L Bee % (Auto) 8.6 H Lymph # (Auto) 0.4 L Bee # (Auto) Seg Neutrophils % 86.1 H Seg Neutrophils # APTT 37.1 H D-Dimer 832.06 H ABG pH 7.478 H POC ABG pO2 ABG pO2 381.9 H ABG HCO3 31.2 H ABG O2 Saturation 99.6 H ABG Base Excess 6.9 H ABG Hemoglobin 13.0 L ABG Oxyhemoglobin ABG Sodium ABG Chloride ABG Glucose Carboxyhemoglobin Sodium Potassium Chloride Carbon Dioxide BUN Glucose POC Glucose Lactic Acid Calcium Phosphorus Magnesium Ferritin AST Ammonia Lactate Dehydrogenase Total Creatine Kinase CK-MB (CK-2) CK-MB (CK-2) Rel Index Troponin T C-Reactive Protein Total Protein Albumin Prealbumin Triglycerides HDL Cholesterol Arterial Blood Glucose Arterial Blood Ionized Calcium Acetaminophen 03/08/21 03/08/21 03/08/21 15:49 15:49 15:49 WBC RBC Hgb Hct MCV RDW Plt Count Lymph % (Auto) Bee % (Auto) Lymph # (Auto) Bee # (Auto) Seg Neutrophils % Seg Neutrophils # APTT D-Dimer ABG pH POC ABG pO2 ABG pO2 ABG HCO3 ABG O2 Saturation ABG Base Excess ABG Hemoglobin ABG Oxyhemoglobin ABG Sodium ABG Chloride ABG Glucose Carboxyhemoglobin Sodium 134 L Potassium Chloride 89.7 L Carbon Dioxide 32 H BUN 47 H Glucose 150 H POC Glucose Lactic Acid Calcium Phosphorus Magnesium Ferritin AST Ammonia 22.0 L Lactate Dehydrogenase Total Creatine Kinase 52 L CK-MB (CK-2) CK-MB (CK-2) Rel Index Troponin T C-Reactive Protein Total Protein Albumin 3.2 L Prealbumin Triglycerides HDL Cholesterol Arterial Blood Glucose Arterial Blood Ionized Calcium Acetaminophen 03/08/21 03/08/21 03/08/21 15:49 15:49 15:49 WBC RBC Hgb Hct MCV RDW Plt Count Lymph % (Auto) Bee % (Auto) Lymph # (Auto) Bee # (Auto) Seg Neutrophils % Seg Neutrophils # APTT D-Dimer ABG pH POC ABG pO2 ABG pO2 ABG HCO3 ABG O2 Saturation ABG Base Excess ABG Hemoglobin ABG Oxyhemoglobin ABG Sodium ABG Chloride ABG Glucose Carboxyhemoglobin Sodium Potassium Chloride Carbon Dioxide BUN Glucose 150 H POC Glucose Lactic Acid 3.40 H* Calcium Phosphorus Magnesium Ferritin AST Ammonia Lactate Dehydrogenase 209 H Total Creatine Kinase CK-MB (CK-2) CK-MB (CK-2) Rel Index Troponin T C-Reactive Protein 24.00 H Total Protein Albumin Prealbumin Triglycerides HDL Cholesterol Arterial Blood Glucose Arterial Blood Ionized Calcium Acetaminophen 5.0 L 03/08/21 03/08/21 03/09/21 15:49 23:27 00:00 WBC RBC Hgb Hct MCV RDW Plt Count Lymph % (Auto) Bee % (Auto) Lymph # (Auto) Bee # (Auto) Seg Neutrophils % Seg Neutrophils # APTT D-Dimer ABG pH POC ABG pO2 ABG pO2 ABG HCO3 ABG O2 Saturation ABG Base Excess ABG Hemoglobin ABG Oxyhemoglobin ABG Sodium ABG Chloride ABG Glucose Carboxyhemoglobin Sodium Potassium Chloride Carbon Dioxide BUN Glucose POC Glucose 185 H Lactic Acid Calcium Phosphorus Magnesium Ferritin 1373.0 H AST Ammonia Lactate Dehydrogenase Total Creatine Kinase CK-MB (CK-2) CK-MB (CK-2) Rel Index Troponin T C-Reactive Protein Total Protein Albumin Prealbumin 0.058 L Triglycerides HDL Cholesterol Arterial Blood Glucose Arterial Blood Ionized Calcium Acetaminophen 03/09/21 03/09/21 03/09/21 05:11 06:18 06:18 WBC RBC 3.50 L Hgb 10.8 L Hct 32.8 L D MCV RDW 13.1 L Plt Count 111 L Lymph % (Auto) 9.9 L Bee % (Auto) 9.2 H Lymph # (Auto) 0.5 L Bee # (Auto) Seg Neutrophils % 80.4 H Seg Neutrophils # APTT D-Dimer ABG pH POC ABG pO2 ABG pO2 ABG HCO3 ABG O2 Saturation ABG Base Excess ABG Hemoglobin ABG Oxyhemoglobin ABG Sodium ABG Chloride ABG Glucose Carboxyhemoglobin Sodium 135 L Potassium 5.3 H Chloride Carbon Dioxide BUN 46 H Glucose 178 H POC Glucose 183 H Lactic Acid Calcium 8.2 L Phosphorus Magnesium Ferritin AST Ammonia Lactate Dehydrogenase Total Creatine Kinase CK-MB (CK-2) CK-MB (CK-2) Rel Index Troponin T C-Reactive Protein Total Protein 6.1 L Albumin 2.4 L Prealbumin Triglycerides HDL Cholesterol Arterial Blood Glucose Arterial Blood Ionized Calcium Acetaminophen 03/09/21 03/09/21 03/09/21 07:40 11:39 18:09 WBC RBC Hgb Hct MCV RDW Plt Count Lymph % (Auto) Bee % (Auto) Lymph # (Auto) Bee # (Auto) Seg Neutrophils % Seg Neutrophils # APTT D-Dimer ABG pH 7.485 H POC ABG pO2 179.1 H ABG pO2 ABG HCO3 ABG O2 Saturation ABG Base Excess ABG Hemoglobin 10.8 L ABG Oxyhemoglobin 99.1 H ABG Sodium 133.2 L ABG Chloride ABG Glucose 175 H Carboxyhemoglobin 0 L Sodium Potassium Chloride Carbon Dioxide BUN Glucose POC Glucose 165 H 167 H Lactic Acid Calcium Phosphorus Magnesium Ferritin AST Ammonia Lactate Dehydrogenase Total Creatine Kinase CK-MB (CK-2) CK-MB (CK-2) Rel Index Troponin T C-Reactive Protein Total Protein Albumin Prealbumin Triglycerides HDL Cholesterol Arterial Blood Glucose 175 H Arterial Blood Ionized Calcium 4.3 L Acetaminophen 03/09/21 03/10/21 03/10/21 23:53 02:59 05:14 WBC 12.0 H RBC Hgb 11.7 L Hct MCV 95 H RDW Plt Count Lymph % (Auto) 2.6 L Bee % (Auto) 7.5 H Lymph # (Auto) 0.3 L Bee # (Auto) 0.9 H Seg Neutrophils % 89.8 H Seg Neutrophils # 10.8 H APTT D-Dimer ABG pH POC ABG pO2 ABG pO2 ABG HCO3 ABG O2 Saturation ABG Base Excess ABG Hemoglobin 11.9 L ABG Oxyhemoglobin ABG Sodium ABG Chloride 108.0 H ABG Glucose 232 H Carboxyhemoglobin 0.3 L Sodium Potassium Chloride Carbon Dioxide BUN Glucose POC Glucose 210 H Lactic Acid Calcium Phosphorus Magnesium Ferritin AST Ammonia Lactate Dehydrogenase Total Creatine Kinase CK-MB (CK-2) CK-MB (CK-2) Rel Index Troponin T C-Reactive Protein Total Protein Albumin Prealbumin Triglycerides HDL Cholesterol Arterial Blood Glucose 232 H Arterial Blood Ionized Calcium 4.4 L Acetaminophen 03/10/21 03/10/21 03/10/21 05:14 05:14 05:14 WBC RBC Hgb Hct MCV RDW Plt Count Lymph % (Auto) Bee % (Auto) Lymph # (Auto) Bee # (Auto) Seg Neutrophils % Seg Neutrophils # APTT D-Dimer ABG pH POC ABG pO2 ABG pO2 ABG HCO3 ABG O2 Saturation ABG Base Excess ABG Hemoglobin ABG Oxyhemoglobin ABG Sodium ABG Chloride ABG Glucose Carboxyhemoglobin Sodium Potassium Chloride 107.2 H Carbon Dioxide BUN 48 H Glucose 218 H POC Glucose Lactic Acid Calcium 7.9 L Phosphorus Magnesium Ferritin AST 41 H Ammonia Lactate Dehydrogenase Total Creatine Kinase CK-MB (CK-2) 17.8 H CK-MB (CK-2) Rel Index 18.1 H Troponin T 0.798 H* C-Reactive Protein Total Protein 5.7 L Albumin 2.7 L Prealbumin Triglycerides 173 H HDL Cholesterol 36 L Arterial Blood Glucose Arterial Blood Ionized Calcium Acetaminophen 03/10/21 03/10/21 03/10/21 05:35 11:43 18:17 WBC RBC Hgb Hct MCV RDW Plt Count Lymph % (Auto) Bee % (Auto) Lymph # (Auto) Bee # (Auto) Seg Neutrophils % Seg Neutrophils # APTT D-Dimer ABG pH POC ABG pO2 ABG pO2 ABG HCO3 ABG O2 Saturation ABG Base Excess ABG Hemoglobin ABG Oxyhemoglobin ABG Sodium ABG Chloride ABG Glucose Carboxyhemoglobin Sodium Potassium Chloride Carbon Dioxide BUN Glucose POC Glucose 210 H 221 H 120 H Lactic Acid Calcium Phosphorus Magnesium Ferritin AST Ammonia Lactate Dehydrogenase Total Creatine Kinase CK-MB (CK-2) CK-MB (CK-2) Rel Index Troponin T C-Reactive Protein Total Protein Albumin Prealbumin Triglycerides HDL Cholesterol Arterial Blood Glucose Arterial Blood Ionized Calcium Acetaminophen 03/10/21 03/11/21 03/11/21 18:40 00:44 08:00 WBC RBC Hgb Hct MCV RDW Plt Count Lymph % (Auto) Bee % (Auto) Lymph # (Auto) Bee # (Auto) Seg Neutrophils % Seg Neutrophils # APTT D-Dimer ABG pH POC ABG pO2 ABG pO2 ABG HCO3 ABG O2 Saturation ABG Base Excess ABG Hemoglobin ABG Oxyhemoglobin ABG Sodium ABG Chloride ABG Glucose Carboxyhemoglobin Sodium Potassium Chloride Carbon Dioxide BUN Glucose POC Glucose Lactic Acid Calcium Phosphorus Magnesium Ferritin AST Ammonia Lactate Dehydrogenase Total Creatine Kinase CK-MB (CK-2) CK-MB (CK-2) Rel Index Troponin T 0.477 H* D 0.430 H* 0.363 H* C-Reactive Protein Total Protein Albumin Prealbumin Triglycerides HDL Cholesterol Arterial Blood Glucose Arterial Blood Ionized Calcium Acetaminophen 03/11/21 03/11/21 03/11/21 08:00 08:00 11:26 WBC 14.7 H RBC 3.62 L Hgb 11.3 L Hct 34.4 L MCV 95 H RDW Plt Count Lymph % (Auto) Bee % (Auto) Lymph # (Auto) Bee # (Auto) Seg Neutrophils % Seg Neutrophils # APTT D-Dimer ABG pH POC ABG pO2 ABG pO2 ABG HCO3 ABG O2 Saturation ABG Base Excess ABG Hemoglobin ABG Oxyhemoglobin ABG Sodium ABG Chloride ABG Glucose Carboxyhemoglobin Sodium Potassium Chloride Carbon Dioxide BUN 34 H Glucose 167 H POC Glucose 157 H Lactic Acid Calcium Phosphorus 2.40 L Magnesium 2.40 H Ferritin AST Ammonia Lactate Dehydrogenase Total Creatine Kinase CK-MB (CK-2) CK-MB (CK-2) Rel Index Troponin T C-Reactive Protein Total Protein 6.1 L Albumin 2.7 L Prealbumin Triglycerides HDL Cholesterol Arterial Blood Glucose Arterial Blood Ionized Calcium Acetaminophen
[2021-03-11] MEDS ORDERED: HYDROcodone/ACETAMINOPHEN 5-325 MG TAB PO PRN (13:59)
[2021-03-11] MEDS ORDERED: SODIUM CHLORIDE 0.9% 1000 ML 1,000 ML IV SCH (14:15)
--- NOTE | 2021-03-11 14:47 | Progress Note ---
Assessment and Plan Cultures: Blood culture pending Covid PCR: Negative A/P: 65-year-old man unknown past medical history as a PUI #Community-acquired pneumonia. Covid testing negative. Elevated procalcitonin, potential bacterial pneumonia. #Acute hypoxic respiratory failure: Currently on venturi mask. #CAD: s/p cardiac catheterization Recs: -Continue cefepime to complete 5 days given elevated procalcitonin. -Anticoagulation per hospital protocol. Thank you for the consult, we will continue to follow. Esther Benedict MD [facility] O: [phone] F: [phone] Subjective Date of service: 03/11/21 Interval history: Afebrile, white count 14.7 cultures all remain negative. Underwent coronary catheterization. Now on Venturi mask. Objective - Exam Narrative Exam: Physical exam deferred to reduce risk of transmission of COVID-19. Please refer to primary team's note. - Constitutional Vitals: Vital Signs Temp Pulse Resp BP Pulse Ox 97.6 F 87 17 147/62 100 03/11/21 12:00 03/11/21 12:00 03/11/21 12:00 03/11/21 11:45 03/11/21 12:00 Temperature -Last 24 Hours Temperature 97.6 F Temperature 97.9 F Temperature 97.6 F - Labs CBC & Chem 7: 03/11/21 08:00 03/11/21 08:00 Labs: Abnormal lab results 03/10/21 03/10/21 03/11/21 Range/Units 18:17 18:40 00:44 WBC (4.5-11.0) K/mm3 RBC (3.65-5.03) M/mm3 Hgb (11.8-15.2) gm/dl Hct (35.5-45.6) % MCV (84-94) fl BUN (9-20) mg/dL Glucose (75-100) mg/dL POC Glucose 120 H (70-105) mg/dL Phosphorus (2.5-4.5) mg/dL Magnesium (1.7-2.3) mg/dL Troponin T 0.477 H* D 0.430 H* (0.00-0.029) ng/mL Total Protein (6.3-8.2) g/dL Albumin (3.9-5) g/dL 03/11/21 03/11/21 03/11/21 Range/Units 08:00 08:00 08:00 WBC 14.7 H (4.5-11.0) K/mm3 RBC 3.62 L (3.65-5.03) M/mm3 Hgb 11.3 L (11.8-15.2) gm/dl Hct 34.4 L (35.5-45.6) % MCV 95 H (84-94) fl BUN 34 H (9-20) mg/dL Glucose 167 H (75-100) mg/dL POC Glucose (70-105) mg/dL Phosphorus 2.40 L (2.5-4.5) mg/dL Magnesium 2.40 H (1.7-2.3) mg/dL Troponin T 0.363 H* (0.00-0.029) ng/mL Total Protein 6.1 L (6.3-8.2) g/dL Albumin 2.7 L (3.9-5) g/dL 03/11/21 Range/Units 11:26 WBC (4.5-11.0) K/mm3 RBC (3.65-5.03) M/mm3 Hgb (11.8-15.2) gm/dl Hct (35.5-45.6) % MCV (84-94) fl BUN (9-20) mg/dL Glucose (75-100) mg/dL POC Glucose 157 H (70-105) mg/dL Phosphorus (2.5-4.5) mg/dL Magnesium (1.7-2.3) mg/dL Troponin T (0.00-0.029) ng/mL Total Protein (6.3-8.2) g/dL Albumin (3.9-5) g/dL
--- NOTE | 2021-03-11 15:09 | Cardiac Catherization Report ---
DATE OF SERVICE: 03/11/2021 CARDIAC CATHETERIZATION AND CORONARY ANGIOPLASTY REPORT REASON FOR PROCEDURE: The patient is a 65-year-old man admitted to the hospital 4 days ago with fever, respiratory insufficiency and suspected pneumonia. His hospital course has been complicated by anterior wall myocardial infarction followed by ventricular tachycardia arrest. He was recommended to undergo urgent cardiac catheterization. The patient is a poor historian, unable to communicate due to language barrier. Risks and benefits of the procedure were discussed with his family members over the phone who gave consent to proceed. PROCEDURES PERFORMED: 1. Left heart catheterization. 2. Selective left and right coronary angiography. 3. Coronary angioplasty and stenting of the mid left anterior descending artery. 4. Sedation time start 1239, end 1326. The patient was prepped and draped in a sterile fashion after informed consent was obtained from the family members over the phone. The left femoral artery was entered using the Seldinger technique followed by placement of a 6-Uzbek hydrophilic sheath. We then advanced a #4 right Aline catheter and performed right coronary angiography. Following this, the catheter was exchanged for a #3.5 XB guided catheter, which was used to perform left coronary angiography. The angiograms were reviewed. CORONARY ANGIOGRAPHY: There was moderate to severe diffuse coronary calcification involving both left and right coronary systems. There was mild ostial narrowing of the left main coronary artery. The left anterior descending artery contained a hazy, up to 85% stenosis of its mid segment, at the origin of the medium-sized mid diagonal branch. This appeared to be the infarct-related lesion. The circumflex system was a small caliber system that was free of significant disease. The right coronary artery was a large, dominant vessel. There was a 40-50% proximal stenosis, followed by diffuse mild atherosclerosis of the distal right coronary segments. CORONARY ANGIOPLASTY: We proceeded with ad hoc coronary intervention to the mid LAD. A 0.014 inch [employer] 50 guidewire was directed into the LAD. Following this, another [employer] 50 guidewire was then directed into the mid diagonal branch. In a primary stenting maneuver, we deployed a 3.5 x 15 mm Resolute drug-eluting stent across the lesional segment, and inflated stent to optimal pressures. Following stenting, there was an excellent angiographic result in the LAD, but evidence of stent nursing home of the diagonal branch. The diagonal guidewire was then withdrawn and readvanced into the vessel through the LAD stent struts. We then introduced 2.5 mm balloon catheters, one into the diagonal branch through the stent struts and one into the LAD. In addition to high pressure balloon inflations in nature of the branches, we then performed kissing balloon maneuver at 4 atmospheres into the LAD and diagonal branch simultaneously. Following this, the catheters and the wires were withdrawn, post-intervention angiograms revealed an excellent angiographic result, zero residual stenosis, CINDY 3 flow both in the LAD and diagonal. The procedure was well tolerated by the patient, the catheters were removed, and the sheath left in place for manual removal once the ACT was below 150. The patient was returned to the postprocedure unit in stable condition with stable hemodynamics, sinus rhythm at 75 and oxygen saturations over 95%. CONCLUSIONS: 1. Acute anterolateral wall myocardial infarction complicated by ventricular tachycardia arrest. 2. Severe stenosis of the mid left anterior descending of the infarct-related lesion. 3. Successful angioplasty and stenting of the left anterior descending, excellent angiographic result following deployment of a 3.5 drug-eluting stent, and left anterior descending and branch vessel angioplasty. 4. Left ventricular function assessment to be performed by echocardiography. TID: [id number] RECEIPT: [id number] CA/KDA
--- NOTE | 2021-03-11 15:47 | Progress Note ---
Assessment and Plan 65-year-old male brought to hospital by EMS for altered mental status and respiratory failure. On EMS arrival patient had a temperature 102.3 and Patient was also severely hypoxic and required [id number] ventilation mask ventilation. EMS also felt the patient had diminished breath sounds in the left side and there was a concern for pneumothorax on the left side. EMS performed a decompression of the left hemothorax but Upon arrival to the emergency room EMS placed the chest tube/catheter became dislodged. Stat chest x-ray showed no obvious left-sided pneumothorax. Given altered mental status and respiratory failure with history of hypoxia patient was intubated by the ED physician. Code sepsis was called and the patient was treated empirically with steroids and duo nebs and ceftriaxone and azithromycin, admitted to ICU for further further stabilization and Mx. He is neg for COVID x2. His hospital stay got complicated with STEMI and V. tach cardiac arrest. S/p cardiac cath with PCI to mid LAD by cardiology. Patient remains in the ICU with altered mental status, status post STEMI with PCI, status post V. tach cardiac arrest and now developed right foot ischemia following cardiac cath.. A/P: -s/p Vtech cardiac arrest on 03/10 Likely due to STEMI s/p ACLS with shock with spontaneous return of circulation Placed on amiodarone drip -Acute anteriorlateral stemi s/p coronary intervention to the mid LAD, and successful implantation of the 3.0 x 15 mm drug-eluting stent. Cardiology following, now on Aggrastat drip Initiated on aspirin statin and Plavix No beta-avery as patient on Levophed drip --Right foot ischemia Noted after PCI We will place on low intensity heparin drip following Aggrastat drip per cardiology recommendation --Acute systolic CHF with EF 35 to 40% Continue aspirin statin and Plavix, likely acute ischemic cardiomyopathy from STEMI Patient currently on pressor support, continue to monitor volume status -- Acute respiratory failure with hypoxia Patient intubated in the emergency room patient, s/p extubation yesterday Patient now on venti mask 03/08 CTA Chest: BL LL PNA noted, small left apical pneumo appreciated. COVID pcr negative x2 Fentanyl, Versed for sedation Nebulizers: Albuterol /budesonide scheduled. 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 Metabolic acidosis and hypotensive -- Bilateral pneumonia Patient initiated on IV cefepime and vancomycin ID consult requested Possible aspiration pneumonia also in the differential diagnosis -- Suspected COVID-19 virus infection, ruled out with 2 -ve test --Elevated troponin could be demand ischemia, planned to initiate aspirin, statin, serial trop/ekg/ ordered for 2d echo and cardiology consult -- Hyponatremia monitor with gentle iv fluid -- Transaminitis Check acute hepatitis profile Possible secondary to ? Covid infection and underlying sepsis -- Pneumothorax, left Small pneumothorax, s/p chest tube by EMS No intervention at this point per intencivist -- COPD with exacerbation chronic smoker nebulizer tx, supplemental O2 -- Hyperglycemia could be steroid induced Check A1c and coverage for now -- Anemia, likely chronic Anemia work-up -- DVT prophylaxis On heparin and GI prophylaxis The high probability of a clinically significant, sudden or life threatening deterioration of the system(s) required my full and direct attention, intervention and personal management. The aggregate critical care time was [35] minutes. This time is in addition to time spent performing reported procedures but includes the following: [x] Data Review and interpretation [x] Patient assessment and monitoring of vital signs [x] Documentation [x] Medication orders and management Daily clinical course 03/09: Hypotensive in AM, Dr. Inman placed right IJ CVC. Patient intiated on pressors. UOP 200 cc overnight. 03/10: Planned for extubation today, repeat covid test pending. RN called for elevated trop - ordered serial trop, ekg, 2d echo, aspirin, statin and placed cardiology consult. will cont to follow clinically, pt remains on levophed 03/11: Patient had Vtech cardiac arrest last night. EKG showed acute STEMI. placed on amioderone and heparin drip. S/p PCI today with stent placement, discontinued heparin drip and started on Aggrastat. Patient now noted with cold bluish LE right>left. Discussed with Dr Armstrong and recommended to initiate low intensity heparin drip after sheath was removed. Placed order and discussed the plan with nurse and pharmacy. Ordered stat lower extremity arterial Doppler and consulted vascular surgeon. Patient remains on Ventimask with 10 to 15 L of O2. Patient also remains confused, continue supportive care and follow clin ically. Subjective Date of service: 03/11/21 Interval history: Patient seen and examined Patient on Ventimask's, extubated yesterday Noted overnight event: Had a V. tach cardiac arrest status post PCI with stent placement today Patient remains confused, denies any chest pain Discussed with RN, vitals noted Objective - Exam Narrative Exam: General appearance: confused, ill appearing elderly gentleman. Eyes: non-icteric ENT: other (orally intubated and sedated.) Neck: supple, right IJ CVC inplace Respiratory: Bilateral: diminished breath sounds Cardiovascular: regular rate and rhythm Gastrointestinal: normoactive bowel sounds Extremities: no edema, cold and cyanotic foot rt>left Psych: unable to assess Neuro: moves extremities : Savage in place. - Constitutional Vitals: Vital Signs - 12hr 03/11/21 03/11/21 03/11/21 04:00 04:15 04:31 Temperature Pulse Rate 91 H 88 86 Pulse Rate [ Bilateral Throughout] Pulse Rate [ 101 H Right Radial] Respiratory 16 14 14 Rate Respiratory Rate [Bilateral Throughout] Blood Pressure 101/65 101/65 120/66 O2 Sat by Pulse 100 Oximetry 03/11/21 03/11/21 03/11/21 04:45 05:01 05:15 Temperature Pulse Rate 85 87 98 H Pulse Rate [ Bilateral Throughout] Pulse Rate [ Right Radial] Respiratory 14 13 14 Rate Respiratory Rate [Bilateral Throughout] Blood Pressure 113/71 125/71 125/71 O2 Sat by Pulse Oximetry 03/11/21 03/11/21 03/11/21 05:31 05:45 06:00 Temperature Pulse Rate 100 H 103 H 101 H Pulse Rate [ Bilateral Throughout] Pulse Rate [ Right Radial] Respiratory 16 16 18 Rate Respiratory Rate [Bilateral Throughout] Blood Pressure 135/82 135/82 133/83 O2 Sat by Pulse Oximetry 03/11/21 03/11/21 03/11/21 06:15 06:31 06:45 Temperature Pulse Rate 113 H 94 H 95 H Pulse Rate [ Bilateral Throughout] Pulse Rate [ Right Radial] Respiratory 22 14 19 Rate Respiratory Rate [Bilateral Throughout] Blood Pressure 133/83 133/65 133/65 O2 Sat by Pulse Oximetry 03/11/21 03/11/21 03/11/21 07:01 07:15 07:31 Temperature Pulse Rate 89 85 83 Pulse Rate [ Bilateral Throughout] Pulse Rate [ Right Radial] Respiratory 16 15 16 Rate Respiratory Rate [Bilateral Throughout] Blood Pressure 157/76 134/74 116/68 O2 Sat by Pulse 97 Oximetry 03/11/21 03/11/21 03/11/21 07:45 08:00 08:16 Temperature 97.9 F Pulse Rate 84 90 85 Pulse Rate [ 100 H Bilateral Throughout] Pulse Rate [ 90 Right Radial] Respiratory 17 14 16 Rate Respiratory 18 Rate [Bilateral Throughout] Blood Pressure 127/73 127/73 136/73 O2 Sat by Pulse 100 89 Oximetry 03/11/21 03/11/21 03/11/21 08:31 08:45 09:01 Temperature Pulse Rate 87 85 93 H Pulse Rate [ Bilateral Throughout] Pulse Rate [ Right Radial] Respiratory 14 16 20 Rate Respiratory Rate [Bilateral Throughout] Blood Pressure 112/70 135/73 135/68 O2 Sat by Pulse 97 95 Oximetry 03/11/21 03/11/21 03/11/21 09:15 09:31 09:45 Temperature Pulse Rate 106 H 95 H 88 Pulse Rate [ Bilateral Throughout] Pulse Rate [ Right Radial] Respiratory 15 15 16 Rate Respiratory Rate [Bilateral Throughout] Blood Pressure 135/68 130/67 127/74 O2 Sat by Pulse 95 97 82 L Oximetry 03/11/21 03/11/21 03/11/21 10:00 10:01 10:15 Temperature Pulse Rate 88 86 Pulse Rate [ Bilateral Throughout] Pulse Rate [ Right Radial] Respiratory 15 14 Rate Respiratory Rate [Bilateral Throughout] Blood Pressure 143/73 151/70 O2 Sat by Pulse 98 83 L 82 L Oximetry 03/11/21 03/11/21 03/11/21 10:31 10:35 10:45 Temperature Pulse Rate 84 84 85 Pulse Rate [ Bilateral Throughout] Pulse Rate [ Right Radial] Respiratory 16 14 Rate Respiratory Rate [Bilateral Throughout] Blood Pressure 148/61 148/61 152/69 O2 Sat by Pulse 84 85 Oximetry 03/11/21 03/11/21 03/11/21 11:01 11:15 11:30 Temperature Pulse Rate 82 80 86 Pulse Rate [ Bilateral Throughout] Pulse Rate [ Right Radial] Respiratory 14 15 15 Rate Respiratory Rate [Bilateral Throughout] Blood Pressure 146/68 152/69 147/74 O2 Sat by Pulse 100 100 100 Oximetry 03/11/21 03/11/21 11:45 12:00 Temperature 97.6 F Pulse Rate 84 87 Pulse Rate [ Bilateral Throughout] Pulse Rate [ 87 Right Radial] Respiratory 14 17 Rate Respiratory Rate [Bilateral Throughout] Blood Pressure 147/62 O2 Sat by Pulse 100 100 Oximetry - Labs CBC & Chem 7: 03/12/21 04:40 03/12/21 04:40 Labs: Abnormal lab results 03/10/21 03/10/21 03/11/21 Range/Units 18:17 18:40 00:44 WBC (4.5-11.0) K/mm3 RBC (3.65-5.03) M/mm3 Hgb (11.8-15.2) gm/dl Hct (35.5-45.6) % MCV (84-94) fl BUN (9-20) mg/dL Glucose (75-100) mg/dL POC Glucose 120 H (70-105) mg/dL Phosphorus (2.5-4.5) mg/dL Magnesium (1.7-2.3) mg/dL Troponin T 0.477 H* D 0.430 H* (0.00-0.029) ng/mL Total Protein (6.3-8.2) g/dL Albumin (3.9-5) g/dL 03/11/21 03/11/21 03/11/21 Range/Units 08:00 08:00 08:00 WBC 14.7 H (4.5-11.0) K/mm3 RBC 3.62 L (3.65-5.03) M/mm3 Hgb 11.3 L (11.8-15.2) gm/dl Hct 34.4 L (35.5-45.6) % MCV 95 H (84-94) fl BUN 34 H (9-20) mg/dL Glucose 167 H (75-100) mg/dL POC Glucose (70-105) mg/dL Phosphorus 2.40 L (2.5-4.5) mg/dL Magnesium 2.40 H (1.7-2.3) mg/dL Troponin T 0.363 H* (0.00-0.029) ng/mL Total Protein 6.1 L (6.3-8.2) g/dL Albumin 2.7 L (3.9-5) g/dL 03/11/21 Range/Units 11:26 WBC (4.5-11.0) K/mm3 RBC (3.65-5.03) M/mm3 Hgb (11.8-15.2) gm/dl Hct (35.5-45.6) % MCV (84-94) fl BUN (9-20) mg/dL Glucose (75-100) mg/dL POC Glucose 157 H (70-105) mg/dL Phosphorus (2.5-4.5) mg/dL Magnesium (1.7-2.3) mg/dL Troponin T (0.00-0.029) ng/mL Total Protein (6.3-8.2) g/dL Albumin (3.9-5) g/dL HEART Score - HEART Score Age: > 65 Risk factors: No known risk factors Troponin: Troponin T 0.363 ng/mL (0.00-0.029) H* 03/11/21 08:00 Troponin: < normal limit - Critical Actions Critical Actions: 0-3 pts:0.9-1.7%risk of adverse cardiac event.Candidate for discharge
[2021-03-11] MEDS: LISINOPRIL 5 MG TAB PO SCH (16:16)
[2021-03-11] MEDS: METOPROLOL TARTRATE 50 MG TAB PO SCH (16:18)
[2021-03-11] MEDS: NORepinephrine/NS 4 MG-250 ML 4 MG/250 ML BAG IV SCH (17:04)
--- NOTE | 2021-03-11 19:10 | Vascular Lab Report ---
DUPLEX DOPPLER LOWER EXTREMITY ARTERIAL, BILATERAL INDICATION / CLINICAL INFORMATION: diminished pulse. TECHNIQUE: Arterial duplex examination of both lower extremities performed using B-mode, color flow and spectral Doppler assessment. FINDINGS: RIGHT: Common Femoral Artery: PSV 258 cm/sec. Monophasic waveform. Proximal SFA: PSV 68 cm/sec. Biphasic waveform. Mid SFA: PSV 37 cm/sec. Biphasic waveform. Distal SFA: PSV 37 cm/sec. Biphasic waveform. Popliteal artery: PSV 25 cm/sec. Monophasic waveform. Posterior tibial artery: PSV 7 cm/sec. Monophasic waveform. Dorsalis Pedis Artery: PSV 9 cm/sec. Monophasic waveform. LEFT: Common Femoral Artery: PSV 129 cm/sec. Biphasic waveform. Proximal SFA: PSV 106 cm/sec. Biphasic waveform. Mid SFA: PSV 110 cm/sec. Biphasic waveform. Distal SFA: PSV 80 cm/sec. Biphasic waveform. Popliteal artery: PSV 45 cm/sec. Biphasic waveform. Posterior tibial artery: PSV 31 cm/sec. Biphasic waveform. Dorsalis Pedis Artery: PSV 13 cm/sec. Monophasic waveform. IMPRESSION: 1. Hemodynamically significant bilateral peripheral arterial disease based on waveform analysis as we ll as significantly increased velocity in the right common femoral artery. Ankle-Brachial Index (ALEX): - Calcified arteries > 1.4 - Normal = 0.9-1.4 - Mild PAD = 0.7-0.89 - Moderate PAD = 0.51-0.69 - Severe PAD < 0.5 Doppler Waveform: - Triphasic is normal. - Biphasic is abnormal if clear transition from triphasic signal along vascular tree. - Monophasic is abnormal. Signer Name: Alfred Lay MD Signed: 03/11/2021 7:05 PM Workstation Name: [id number]
--- NOTE | 2021-03-11 20:37 | Consultation ---
History of Present Illness - Reason for Consult Consult date: 03/11/21 Ischemic Changes to Right Lower Extremity Requesting physician: ROMINA ROE - History of Present Illness The patient is a 65-year-old male who was found to be wandering around an apartment complex in a state of confusion. 911 was called and upon arrival EMS found the patient to be confused, febrile, and hypoxemic. They provided supplemental oxygen with bag mask ventilation and upon listening to the patient's breath sounds felt that he had diminished breath sounds on the left and performed a needle decompression for a presumed pneumothorax. The eventually intubated the patient however in route to the emergency department the tube became dislodged. On hospital day #2 the patient had a V. tach arrest and had a successful ACLS protocol that regained a pulse. He eventually required a cardiac cath and stenting of his LAD. He is currently in the ICU and on a Levophed drip and was found to have ischemic changes to his right foot. A recent arterial duplex of bilateral lower extremities demonstrated severe stenosis of the right external iliac artery as well as the common iliac artery with the diminished flow in the remainder of the lower extremity. The patient remains confused and does not understand Armenian so I am unable to assess review of systems. Past History Past Medical History: other (Past medical history not known) Past Surgical History: Other (Not known) Social history: full code Family history: hypertension Medications and Allergies Allergies Allergy/AdvReac Type Severity Reaction Status Date / Time Unable to Assess Allergy Verified 03/08/21 14:37 Active Meds: Active Medications Acetaminophen (Acetaminophen 325 Mg Tab) 650 mg PO Q4H PRN PRN Reason: Pain MILD(1-3)/Fever >100.5/MYERS Hydrocodone Bitart/Acetaminophen (Hydrocodone/Acetaminophen 5-325 Mg Tab) 1 eac h PO Q6H PRN PRN Reason: Pain, Moderate (4-6) Lipase/Protease/Amylase (Lipase 10,500/Protease 25,000/Amylase 43,750 (Units) Dr Johnson) 1 each FEEDTUBE PRN PRN PRN Reason: For Clogged Feeding Tube Arformoterol Tartrate (Arformoterol 15 Mcg/2 Ml Nebu) [address] [facility] Last Admin: 03/11/21 20:32 Dose: 15 mcg Documented by: Aspirin (Aspirin 81 Mg Tab Chew) [address] [facility] Last Admin: 03/11/21 09:59 Dose: 81 mg Documented by: Atorvastatin Calcium (Atorvastatin 40 Mg Tab) 40 mg PO QHS [facility] Budesonide (Budesonide 0.5 Mg/2 Ml Nebu) 0.[address] [facility] Last Admin: 03/11/21 20:32 Dose: 0.5 mg Documented by: Clopidogrel Bisulfate (Clopidogrel 75 Mg Tab) 75 mg PO QDAY [facility] Famotidine (Famotidine 20 Mg Tab) [address] [facility] Last Admin: 03/11/21 09:59 Dose: 20 mg Documented by: Heparin Sodium (Porcine) (Heparin 10,000 Units/10 Ml Vial) 2,100 unit 40 unit/kg (2100 unit) IV Q6H PRN PRN Reason: Anti-Xa Assay < 0.1 units/ml Hydromorphone HCl (Hydromorphone 1 Mg/1 Ml Inj) 0.5 mg IV Q3H PRN PRN Reason: Pain , Severe (7-10) Hydrophilic Ointment (Lip Therapy Vaseline) 1 applic TP Q2HR PRN PRN Reason: Dry Lips Norepinephrine (Levophed Drip 4 Mg/Ns 250 Ml) 4 mg in 250 mls @ 7.5 mls/hr IV TITR [facility]; Protocol Last Admin: 03/11/21 17:04 Dose: 2 mcg/min, 7.5 mls/hr Documented by: Cefepime HCl (Cefepime/Ns 2 Gm/100 Ml) 2 gm in 100 mls @ 200 mls/hr IV Q12H [facility]; Protocol Stop: 03/14/21 02:29 Last Admin: 03/11/21 15:16 Dose: 200 mls/hr Documented by: Amiodarone HCl 900 mg/ (Dextrose) 500 mls @ 33.333 mls/hr IV DIRECT [facility]; Protocol Last Infusion: 03/11/21 07:00 Dose: 0.5 mg/min, 16.667 mls/hr Documented by: Tirofiban/Sodium Chloride (Aggrastat Drip (12.5 Mg/250 Ml)) 12,500 mcg in 250 mls @ 4.5 mls/hr IV DIRECT [facility]; Protocol Stop: 03/12/21 03:59 Last Admin: 03/11/21 10:37 Dose: 4.5 mls/hr Documented by: Sodium Chloride (Nacl 0.9% 1000 Ml) 1,000 mls @ 75 mls/hr IV DIRECT [facility] Stop: 03/12/21 14:14 Heparin Sodium/Sodium Chloride (Heparin/ 0.45% Nacl-25,000 Unit/500 Ml) 25,000 unit in 500 mls @ 15 mls/hr IV TITR [facility]; Protocol Insulin Human Lispro (Insulin Lispro 100 Unit/Ml) 0 unit SUB-Q Q6HR [facility]; Protocol Last Admin: 03/11/21 20:07 Dose: Not Given Documented by: Lisinopril (Lisinopril 5 Mg Tab) [address] [facility] Last Admin: 03/11/21 16:16 Dose: Not Given Documented by: Lorazepam (Lorazepam 2 Mg/Ml Vial) 1 mg IV Q4H PRN PRN Reason: Agitation Methylprednisolone Sodium Succinate (Methylprednisolone Sod Succinate 125 Mg/2 Ml Inj) [address] [facility] Last Admin: 03/11/21 15:18 Dose: 60 mg Documented by: Metoclopramide HCl (Metoclopramide 10 Mg/2 Ml Inj) 10 mg IV Q6H PRN PRN Reason: Nausea And Vomiting Metoprolol Tartrate (Metoprolol Tartrate 50 Mg Tab) [address] [facility] Last Admin: 03/11/21 16:18 Dose: Not Given Documented by: Morphine Sulfate (Morphine 2 Mg/1 Ml Inj) 2 mg IV Q4H PRN PRN Reason: Pain, Moderate (4-6) Multi-Ingred Cream/Lotion/Oil/Oint (Mineral Oil/Petrolatum, White Ophth Oint 3.5 Gm) 1 applic OU Q4HR PRN PRN Reason: Dry Eye(s) Ondansetron HCl (Ondansetron 4 Mg/2 Ml Inj) 4 mg IV Q3H PRN PRN Reason: Nausea And Vomiting Senna/Docusate Sodium (Sennosides/Docusate Sodium 8.6/50 Mg Tab) [address] [facility] Last Admin: 03/11/21 09:59 Dose: 1 tab Documented by: Simple Syrup (Simple Syrup 15 Ml) 15 ml FEEDTUBE PRN PRN PRN Reason: Hypoglycemia Simple Syrup (Simple Syrup 15 Ml) 30 ml FEEDTUBE PRN PRN PRN Reason: Hypoglycemia Sodium Bicarbonate (Sodium Bicarbonate 325 Mg Tab) 325 mg FEEDTUBE PRN PRN PRN Reason: For Clogged Feeding Tube Sodium Chloride (Sodium Chloride 0.9% 10 Ml Flush Syringe) 10 ml IV BID [facility] Last Admin: 03/11/21 10:01 Dose: 10 ml Documented by: Sodium Chloride (Sodium Chloride 0.9% 10 Ml Flush Syringe) 10 ml IV PRN PRN PRN Reason: LINE FLUSH Review of Systems ROS unobtainable: due to mental status Exam - Constitutional Vitals: Temp Pulse Resp BP Pulse Ox 97.0 F L 74 11 L 139/57 100 03/11/21 16:00 03/11/21 20:32 03/11/21 20:32 03/11/21 20:15 03/11/21 20:32 General appearance: Present: no acute distress - Respiratory Respiratory effort: normal - Cardiovascular Rhythm: regular - Extremities Extremities: pulses intact (palpable femoral pulses bilaterally, diminished right femoral pulse) Extremity abnormal: cyanosis (Right foot cool with cyanotic changes), pulses diminished (nonpalpable pedal pulses bilaterally) - Abdominal General gastrointestinal: Present: soft - Neurologic Neurologic: moves all extremities Results - Labs CBC & Chem 7: 03/11/21 08:00 03/11/21 08:00 Labs: Abnormal lab results 03/11/21 03/11/21 03/11/21 Range/Units 00:44 08:00 08:00 WBC 14.7 H (4.5-11.0) K/mm3 RBC 3.62 L (3.65-5.03) M/mm3 Hgb 11.3 L (11.8-15.2) gm/dl Hct 34.4 L (35.5-45.6) % MCV 95 H (84-94) fl BUN (9-20) mg/dL Glucose (75-100) mg/dL POC Glucose (70-105) mg/dL Phosphorus (2.5-4.5) mg/dL Magnesium (1.7-2.3) mg/dL Troponin T 0.430 H* 0.363 H* (0.00-0.029) ng/mL Total Protein (6.3-8.2) g/dL Albumin (3.9-5) g/dL 03/11/21 03/11/21 03/11/21 Range/Units 08:00 11:26 17:31 WBC (4.5-11.0) K/mm3 RBC (3.65-5.03) M/mm3 Hgb (11.8-15.2) gm/dl Hct (35.5-45.6) % MCV (84-94) fl BUN 34 H (9-20) mg/dL Glucose 167 H (75-100) mg/dL POC Glucose 157 H 154 H (70-105) mg/dL Phosphorus 2.40 L (2.5-4.5) mg/dL Magnesium 2.40 H (1.7-2.3) mg/dL Troponin T (0.00-0.029) ng/mL Total Protein 6.1 L (6.3-8.2) g/dL Albumin 2.7 L (3.9-5) g/dL Assessment and Plan The patient is 65 year old female with a history of CAD who underwent PCI of the LAD. He is currently on a Levophed drip and has cyanotic changes to his right foot. He underwent an arterial duplex that demonstrates severe stenosis of the right external iliac artery as well as the common femoral artery. I am unable to assess his symptoms secondary to language barrier and mental status changes. I recommend weaning the Levophed drip off as tolerated. I would start a heparin drip until he can the pressors can be weaned off. Once pressors are weaned off I would also recommend stopping aspirin and adding Xarelto 2.5 mg po BID with the Plavix 75 po daily. He may require intervention, at some point, to treat his disease however this will be based off of his symptoms and will require an i nterpreter to discuss.
[2021-03-11 22:23] LABS: Hematocrit 33.6 % (35.5-45.6); Hemoglobin 10.7 gm/dl (11.8-15.2)
[2021-03-11 22:29] LABS: INR 1.09 (0.87-1.13)
[2021-03-11 22:30] LABS: Partial Thromboplastin Time 31.4 Sec. (24.2-36.6)
[2021-03-12] MEDS: HEPARIN/ 0.45% NACL DRIP 25,000 UNIT/500 ML BAG IV SCH (02:38)
[2021-03-12] MEDS: CEFEPIME/NS 2 GM/100 ML 2 GM/100 ML BAG IV SCH ×2 (02:43→14:39)
[2021-03-12 05:20] LABS: Hematocrit 31.3 % (35.5-45.6); Hemoglobin 10.3 gm/dl (11.8-15.2); Mean Corpuscular HGB Conc 33 % (32-34); Mean Corpuscular Volume 96 fl (84-94); Platelet Count 186 K/mm3 (140-440); Red Blood Count 3.28 M/mm3 (3.65-5.03); Red Cell Distribution Width 13.2 % (13.2-15.2)
[2021-03-12 05:43] LABS: BUN/Creatinine Ratio 31; Blood Urea Nitrogen 28 mg/dL (9-20); Calcium 8.2 mg/dL (8.4-10.2); Hemolysis Index 5
[2021-03-12 06:27] LABS: Total Cells Counted 100
[2021-03-12 06:28] LABS: Platelet Estimate Consistent w Auto; RBC Morphology Normal
[2021-03-12] MEDS: methylPREDNISolone Sod Succinate 125 MG/2 ML INJ IV SCH ×3 (06:35→21:32)
[2021-03-12] MEDS: INSULIN LISPRO 100 UNIT/ML SUB-Q SCH ×4 (06:37→17:35)
[2021-03-12] MEDS: BUDESONIDE 0.5 MG/2 ML NEBU IH SCH ×2 (08:03→20:26)
[2021-03-12] MEDS: ARFORMOTEROL 15 MCG/2 ML NEBU IH SCH ×2 (08:03→20:26)
[2021-03-12] MEDS: ASPIRIN 81 MG TAB CHEW PO SCH (10:27)
[2021-03-12] MEDS: FAMOTIDINE 20 MG TAB PO SCH ×2 (10:27→21:32)
[2021-03-12] MEDS: CLOPIDOGREL 75 MG TAB PO SCH (10:27)
[2021-03-12] MEDS: SENNOSIDES/DOCUSATE SODIUM 8.6/50 MG TAB FEEDTUBE SCH ×2 (10:27→21:32)
--- NOTE | 2021-03-12 10:36 | Progress Note ---
Assessment and Plan Acute ST elevation myocardial infarction complicated by ventricular fibrillation arrest; on IV amiodarone. s/p PCI of the mid LAD using drug-eluting stent; on plavix and aspirin. LVEF 35-40% by echo Acute respiratory failure Indeterminate PCR serology Altered mental status Hx of COPD PAD Subjective Date of service: 03/12/21 Interval history: Resting in bed and appears comfortable. Objective Vital Signs Temp Pulse Pulse Pulse Resp Resp BP 03/12/21 08:30 75 13 116/80 03/12/21 08:15 74 13 125/48 03/12/21 08:12 03/12/21 08:03 70 18 03/12/21 08:02 03/12/21 08:00 98.0 F 70 14 125/48 03/12/21 07:45 85 12 136/64 03/12/21 07:31 72 13 03/12/21 07:15 71 15 51/27 03/12/21 07:01 74 12 51/27 03/12/21 06:45 74 15 92/43 03/12/21 06:31 73 16 92/43 03/12/21 06:15 72 16 101/51 03/12/21 06:00 73 11 L 117/51 03/12/21 05:45 70 15 85/62 03/12/21 05:31 72 15 85/62 03/12/21 05:15 72 15 95/75 03/12/21 05:01 70 13 118/55 03/12/21 04:45 70 11 L 118/55 03/12/21 04:31 70 14 94/64 03/12/21 04:15 72 14 120/53 03/12/21 04:01 70 15 115/50 03/12/21 04:00 85 85 10 L 03/12/21 03:45 71 12 113/53 03/12/21 03:31 73 11 L 112/52 03/12/21 03:15 73 12 89/52 03/12/21 03:01 73 14 118/49 03/12/21 02:45 72 11 L 94/57 03/12/21 02:31 73 13 104/51 03/12/21 02:15 76 14 113/55 03/12/21 02:00 71 11 L 107/50 03/12/21 01:45 72 13 114/54 03/12/21 01:31 74 16 118/52 03/12/21 01:15 71 14 111/56 03/12/21 01:01 73 10 L 111/56 03/12/21 00:45 72 11 L 131/58 03/12/21 00:31 74 12 131/58 03/12/21 00:15 74 10 L 127/54 03/12/21 00:00 73 74 10 L 123/56 03/11/21 23:45 76 11 L 128/57 03/11/21 23:30 72 12 121/53 03/11/21 23:15 74 12 128/55 03/11/21 23:01 73 13 125/54 03/11/21 22:45 76 11 L 130/57 03/11/21 22:31 73 11 L 123/54 03/11/21 22:15 74 16 123/52 03/11/21 22:01 75 11 L 115/55 03/11/21 21:45 81 10 L 124/65 03/11/21 21:31 75 14 125/58 03/11/21 21:15 78 13 133/63 03/11/21 21:00 75 10 L 132/55 03/11/21 20:45 76 12 124/52 03/11/21 20:32 74 11 L 03/11/21 20:31 75 15 106/50 03/11/21 20:27 80 16 135/62 03/11/21 20:15 71 10 L 139/57 03/11/21 20:09 71 12 124/59 03/11/21 20:01 76 14 152/44 03/11/21 20:00 97.8 F 74 74 11 L 03/11/21 19:59 77 11 L 134/53 03/11/21 19:45 72 13 134/53 03/11/21 19:30 74 11 L 142/74 03/11/21 19:15 75 13 112/57 03/11/21 19:00 72 11 L 112/57 03/11/21 18:45 78 16 70/19 03/11/21 18:31 71 12 70/19 03/11/21 18:15 68 11 L 43/20 03/11/21 18:01 69 12 43/20 03/11/21 17:45 71 12 43/20 03/11/21 17:31 77 14 43/20 03/11/21 17:15 71 9 L 59/43 03/11/21 17:01 71 10 L 59/43 03/11/21 16:45 81 17 59/43 03/11/21 16:31 68 13 112/48 03/11/21 16:18 69 78/49 03/11/21 16:16 69 78/49 03/11/21 16:15 69 10 L 104/67 03/11/21 16:01 69 9 L 96/52 03/11/21 16:00 97.0 F L 71 69 14 03/11/21 15:45 70 11 L 117/54 03/11/21 15:31 73 12 123/49 03/11/21 15:30 73 12 117/54 03/11/21 15:15 70 11 L 123/49 03/11/21 15:00 80 19 78/45 03/11/21 14:45 70 12 57/30 03/11/21 14:31 70 9 L 57/30 03/11/21 14:19 73 147/62 03/11/21 12:00 97.6 F 87 87 17 03/11/21 11:45 84 14 147/62 03/11/21 11:30 86 15 147/74 03/11/21 11:15 80 15 152/69 03/11/21 11:01 82 14 146/68 03/11/21 10:45 85 14 152/69 Pulse Ox 03/12/21 08:30 100 03/12/21 08:15 100 03/12/21 08:12 100 03/12/21 08:03 03/12/21 08:02 100 03/12/21 08:00 100 03/12/21 07:45 95 03/12/21 07:31 95 03/12/21 07:15 100 03/12/21 07:01 96 03/12/21 06:45 97 03/12/21 06:31 97 03/12/21 06:15 94 03/12/21 06:00 95 03/12/21 05:45 99 03/12/21 05:31 95 03/12/21 05:15 100 03/12/21 05:01 100 03/12/21 04:45 03/12/21 04:31 99 03/12/21 04:15 03/12/21 04:01 89 03/12/21 04:00 100 03/12/21 03:45 96 03/12/21 03:31 100 03/12/21 03:15 93 03/12/21 03:01 98 03/12/21 02:45 95 03/12/21 02:31 96 03/12/21 02:15 96 03/12/21 02:00 03/12/21 01:45 98 03/12/21 01:31 93 03/12/21 01:15 96 03/12/21 01:01 100 03/12/21 00:45 100 03/12/21 00:31 100 03/12/21 00:15 03/12/21 00:00 100 03/11/21 23:45 99 03/11/21 23:30 100 03/11/21 23:15 100 03/11/21 23:01 100 03/11/21 22:45 100 03/11/21 22:31 100 03/11/21 22:15 03/11/21 22:01 100 03/11/21 21:45 100 03/11/21 21:31 100 03/11/21 21:15 100 03/11/21 21:00 100 03/11/21 20:45 100 03/11/21 20:32 100 03/11/21 20:31 100 03/11/21 20:27 100 03/11/21 20:15 100 03/11/21 20:09 100 03/11/21 20:01 99 03/11/21 20:00 100 03/11/21 19:59 100 03/11/21 19:45 100 03/11/21 19:30 100 03/11/21 19:15 100 03/11/21 19:00 100 03/11/21 18:45 100 03/11/21 18:31 100 03/11/21 18:15 100 03/11/21 18:01 100 03/11/21 17:45 100 03/11/21 17:31 100 03/11/21 17:15 100 03/11/21 17:01 100 03/11/21 16:45 100 03/11/21 16:31 100 03/11/21 16:18 03/11/21 16:16 03/11/21 16:15 03/11/21 16:01 03/11/21 16:00 03/11/21 15:45 03/11/21 15:31 03/11/21 15:30 03/11/21 15:15 03/11/21 15:00 03/11/21 14:45 03/11/21 14:31 03/11/21 14:19 03/11/21 12:00 03/11/21 11:45 03/11/21 11:30 03/11/21 11:15 03/11/21 11:01 03/11/21 10:45 85 - Physical Examination HEENT: Positive: PERRL Neck: Positive: neck supple Neuro: Positive: Grossly Intact Abdomen: Positive: Soft Skin: Positive: Clear Extremities: Absent: edema - Labs and Meds Coagulation 03/11/21 03/11/21 Range/Units 10:40 21:50 PT 13.9 14.6 (12.2-14.9) Sec. INR 1.02 1.09 (0.87-1.13) APTT 34.8 31.4 (24.2-36.6) Sec. CBC 03/11/21 03/12/21 Range/Units 21:50 04:40 WBC 11.6 H (4.5-11.0) K/mm3 RBC 3.28 L (3.65-5.03) M/mm3 Hgb 10.7 L 10.3 L (11.8-15.2) gm/dl Hct 33.6 L 31.3 L (35.5-45.6) % Plt Count 226 186 (140-440) K/mm3 Comprehensive Metabolic Panel 03/12/21 Range/Units 04:40 Sodium 143 (137-145) mmol/L Potassium 4.7 (3.6-5.0) mmol/L Chloride 108.7 H (98-107) mmol/L Carbon Dioxide 29 (22-30) mmol/L BUN 28 H (9-20) mg/dL Creatinine 0.9 (0.8-1.3) mg/dL Glucose 137 H (75-100) mg/dL Calcium 8.2 L (8.4-10.2) mg/dL
--- NOTE | 2021-03-12 10:51 | Progress Note ---
Assessment and Plan 65 y/o male with acute respiratory, exact etiology unknown 03/12/21: Clinically appears stable. Will discuss with cards but I feel patient is stable for step down vs tele. Likely no tele beds available but could down grade and keep in unit. Will discuss and make a decision later today. 03/11/21: Follow up cath results. Monitor volume status. Maintain potassium of 4 and mag of 2. monitor renal function. Goal directed medical therapy. Wean FiO2 for sats >88% down to baseline of 2 liters NC. Will continue to follow. Smoking cessation. 03/10/21: Sedation stopped and now discontinued from OCT. 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 The repeat EKG still shows some ST elevation in V3 but T waves have inverted V4, V5 and V6. Per the tech, the tech from yesterday did an EKG off the wrong order but the EKG showing ST elevations was not shown to a physician. Will order Troponin now and obtain 2D echo once COVID results are back. At this point, pending these labs will determine cardiology consult. As stated before, hemodynamically the patient is stable. Tech needs order for EKG but as I explained, not able to back date an order and there was not an order for that EKG to begin with. Very difficult case in regards to EKG. Will speak with risk about this. 1. Continue supportive measures 2. CXR is stable and IJ in good position 3. Per Nurse, patient has COPD and chronic respiratory failure and is still smoking. Guarded prognosis Subjective Date of service: 03/12/21 Interval history: PCI done on yesterday. Still on venti mask but sat is 100%. Off Levo but blood pressures continue to fluctuate. Currently on heparin drip. Reviewed vascular note from yesterday. Objective Vital Signs - 12hr 03/11/21 03/11/21 03/11/21 23:01 23:15 23:30 Temperature Pulse Rate 73 74 72 Pulse Rate [ Bilateral Throughout] Pulse Rate [ Right Radial] Respiratory 13 12 12 Rate Respiratory Rate [Bilateral Throughout] Blood Pressure 125/54 128/55 121/53 O2 Sat by Pulse 100 100 100 Oximetry 03/11/21 03/12/21 03/12/21 23:45 00:00 00:15 Temperature Pulse Rate 76 73 74 Pulse Rate [ Bilateral Throughout] Pulse Rate [ 74 Right Radial] Respiratory 11 L 10 L 10 L Rate Respiratory Rate [Bilateral Throughout] Blood Pressure 128/57 123/56 127/54 O2 Sat by Pulse 99 100 Oximetry 03/12/21 03/12/21 03/12/21 00:31 00:45 01:01 Temperature Pulse Rate 74 72 73 Pulse Rate [ Bilateral Throughout] Pulse Rate [ Right Radial] Respiratory 12 11 L 10 L Rate Respiratory Rate [Bilateral Throughout] Blood Pressure 131/58 131/58 111/56 O2 Sat by Pulse 100 100 100 Oximetry 03/12/21 03/12/21 03/12/21 01:15 01:31 01:45 Temperature Pulse Rate 71 74 72 Pulse Rate [ Bilateral Throughout] Pulse Rate [ Right Radial] Respiratory 14 16 13 Rate Respiratory Rate [Bilateral Throughout] Blood Pressure 111/56 118/52 114/54 O2 Sat by Pulse 96 93 98 Oximetry 03/12/21 03/12/21 03/12/21 02:00 02:15 02:31 Temperature Pulse Rate 71 76 73 Pulse Rate [ Bilateral Throughout] Pulse Rate [ Right Radial] Respiratory 11 L 14 13 Rate Respiratory Rate [Bilateral Throughout] Blood Pressure 107/50 113/55 104/51 O2 Sat by Pulse 96 96 Oximetry 03/12/21 03/12/21 03/12/21 02:45 03:01 03:15 Temperature Pulse Rate 72 73 73 Pulse Rate [ Bilateral Throughout] Pulse Rate [ Right Radial] Respiratory 11 L 14 12 Rate Respiratory Rate [Bilateral Throughout] Blood Pressure 94/57 118/49 89/52 O2 Sat by Pulse 95 98 93 Oximetry 03/12/21 03/12/21 03/12/21 03:31 03:45 04:00 Temperature Pulse Rate 73 71 85 Pulse Rate [ Bilateral Throughout] Pulse Rate [ 85 Right Radial] Respiratory 11 L 12 10 L Rate Respiratory Rate [Bilateral Throughout] Blood Pressure 112/52 113/53 O2 Sat by Pulse 100 96 100 Oximetry 03/12/21 03/12/21 03/12/21 04:01 04:15 04:31 Temperature Pulse Rate 70 72 70 Pulse Rate [ Bilateral Throughout] Pulse Rate [ Right Radial] Respiratory 15 14 14 Rate Respiratory Rate [Bilateral Throughout] Blood Pressure 115/50 120/53 94/64 O2 Sat by Pulse 89 99 Oximetry 03/12/21 03/12/21 03/12/21 04:45 05:01 05:15 Temperature Pulse Rate 70 70 72 Pulse Rate [ Bilateral Throughout] Pulse Rate [ Right Radial] Respiratory 11 L 13 15 Rate Respiratory Rate [Bilateral Throughout] Blood Pressure 118/55 118/55 95/75 O2 Sat by Pulse 100 100 Oximetry 03/12/21 03/12/21 03/12/21 05:31 05:45 06:00 Temperature Pulse Rate 72 70 73 Pulse Rate [ Bilateral Throughout] Pulse Rate [ Right Radial] Respiratory 15 15 11 L Rate Respiratory Rate [Bilateral Throughout] Blood Pressure 85/62 85/62 117/51 O2 Sat by Pulse 95 99 95 Oximetry 03/12/21 03/12/21 03/12/21 06:15 06:31 06:45 Temperature Pulse Rate 72 73 74 Pulse Rate [ Bilateral Throughout] Pulse Rate [ Right Radial] Respiratory 16 16 15 Rate Respiratory Rate [Bilateral Throughout] Blood Pressure 101/51 92/43 92/43 O2 Sat by Pulse 94 97 97 Oximetry 03/12/21 03/12/21 03/12/21 07:01 07:15 07:31 Temperature Pulse Rate 74 71 72 Pulse Rate [ Bilateral Throughout] Pulse Rate [ Right Radial] Respiratory 12 15 13 Rate Respiratory Rate [Bilateral Throughout] Blood Pressure 51/27 51/27 O2 Sat by Pulse 96 100 95 Oximetry 03/12/21 03/12/21 03/12/21 07:45 08:00 08:02 Temperature 98.0 F Pulse Rate 85 70 Pulse Rate [ Bilateral Throughout] Pulse Rate [ Right Radial] Respiratory 12 14 Rate Respiratory Rate [Bilateral Throughout] Blood Pressure 136/64 125/48 O2 Sat by Pulse 95 100 100 Oximetry 03/12/21 03/12/21 03/12/21 08:03 08:12 08:15 Temperature Pulse Rate 74 Pulse Rate [ 70 Bilateral Throughout] Pulse Rate [ Right Radial] Respiratory 13 Rate Respiratory 18 Rate [Bilateral Throughout] Blood Pressure 125/48 O2 Sat by Pulse 100 100 Oximetry 03/12/21 08:30 Temperature Pulse Rate 75 Pulse Rate [ Bilateral Throughout] Pulse Rate [ Right Radial] Respiratory 13 Rate Respiratory Rate [Bilateral Throughout] Blood Pressure 116/80 O2 Sat by Pulse 100 Oximetry Constitutional: comatose Eyes: non-icteric ENT: other (orally intubated and sedated.) Neck: supple Effort: normal Ascultation: Bilateral: diminished breath sounds Cardiovascular: regular rate and rhythm Gastrointestinal: normoactive bowel sounds Extremities: no edema, pink and warm Neurologic: unable to assess CBC and BMP: 03/12/21 04:40 03/12/21 04:40 ABG, PT/INR, D-dimer: ABG ABG pH 7.352 (7.320-7.450) 03/10/21 02:59 POC ABG pCO2 44.5 mmHg (32.0-48.0) 03/10/21 02:59 ABG pCO2 43.0 mm Hg 03/08/21 15:12 POC ABG pO2 105.3 mmHg (83-108) 03/10/21 02:59 ABG pO2 381.9 mm Hg (80.0-90.0) H 03/08/21 15:12 POC ABG HCO3 24.1 03/10/21 02:59 ABG O2 Saturation 97.6 (0-100) 03/10/21 02:59 PT/INR, D-dimer PT 14.6 Sec. (12.2-14.9) 03/11/21 21:50 INR 1.09 (0.87-1.13) 03/11/21 21:50 D-Dimer 832.06 ng/mlDDU (0-234) H 03/08/21 15:49 Abnormal lab findings: Abnormal Labs 03/08/21 03/08/21 03/08/21 15:12 15:49 15:49 WBC RBC Hgb Hct MCV 95 H RDW 12.8 L Plt Count Lymph % (Auto) 5.1 L [place] % (Auto) 8.6 H Lymph # (Auto) 0.4 L [place] # (Auto) Seg Neutrophils % 86.1 H Seg Neuts % (Manual) Lymphocytes % (Manual) Seg Neutrophils # Seg Neutrophils # Man Lymphocytes # (Manual) APTT 37.1 H D-Dimer 832.06 H ABG pH 7.478 H POC ABG pO2 ABG pO2 381.9 H ABG HCO3 31.2 H ABG O2 Saturation 99.6 H ABG Base Excess 6.9 H ABG Hemoglobin 13.0 L ABG Oxyhemoglobin ABG Sodium ABG Chloride ABG Glucose Carboxyhemoglobin Sodium Potassium Chloride Carbon Dioxide BUN Glucose POC Glucose Lactic Acid Calcium Phosphorus Magnesium Ferritin AST Ammonia Lactate Dehydrogenase Total Creatine Kinase CK-MB (CK-2) CK-MB (CK-2) Rel Index Troponin T C-Reactive Protein Total Protein Albumin Prealbumin Triglycerides HDL Cholesterol Arterial Blood Glucose Arterial Blood Ionized Calcium Acetaminophen 03/08/21 03/08/21 03/08/21 15:49 15:49 15:49 WBC RBC Hgb Hct MCV RDW Plt Count Lymph % (Auto) [place] % (Auto) Lymph # (Auto) [place] # (Auto) Seg Neutrophils % Seg Neuts % (Manual) Lymphocytes % (Manual) Seg Neutrophils # Seg Neutrophils # Man Lymphocytes # (Manual) APTT D-Dimer ABG pH POC ABG pO2 ABG pO2 ABG HCO3 ABG O2 Saturation ABG Base Excess ABG Hemoglobin ABG Oxyhemoglobin ABG Sodium ABG Chloride ABG Glucose Carboxyhemoglobin Sodium 134 L Potassium Chloride 89.7 L Carbon Dioxide 32 H BUN 47 H Glucose 150 H POC Glucose Lactic Acid Calcium Phosphorus Magnesium Ferritin AST Ammonia 22.0 L Lactate Dehydrogenase Total Creatine Kinase 52 L CK-MB (CK-2) CK-MB (CK-2) Rel Index Troponin T C-Reactive Protein Total Protein Albumin 3.2 L Prealbumin Triglycerides HDL Cholesterol Arterial Blood Glucose Arterial Blood Ionized Calcium Acetaminophen 03/08/21 03/08/21 03/08/21 15:49 15:49 15:49 WBC RBC Hgb Hct MCV RDW Plt Count Lymph % (Auto) [place] % (Auto) Lymph # (Auto) [place] # (Auto) Seg Neutrophils % Seg Neuts % (Manual) Lymphocytes % (Manual) Seg Neutrophils # Seg Neutrophils # Man Lymphocytes # (Manual) APTT D-Dimer ABG pH POC ABG pO2 ABG pO2 ABG HCO3 ABG O2 Saturation ABG Base Excess ABG Hemoglobin ABG Oxyhemoglobin ABG Sodium ABG Chloride ABG Glucose Carboxyhemoglobin Sodium Potassium Chloride Carbon Dioxide BUN Glucose 150 H POC Glucose Lactic Acid 3.40 H* Calcium Phosphorus Magnesium Ferritin AST Ammonia Lactate Dehydrogenase 209 H Total Creatine Kinase CK-MB (CK-2) CK-MB (CK-2) Rel Index Troponin T C-Reactive Protein 24.00 H Total Protein Albumin Prealbumin Triglycerides HDL Cholesterol Arterial Blood Glucose Arterial Blood Ionized Calcium Acetaminophen 5.0 L 03/08/21 03/08/21 03/09/21 15:49 23:27 00:00 WBC RBC Hgb Hct MCV RDW Plt Count Lymph % (Auto) [place] % (Auto) Lymph # (Auto) [place] # (Auto) Seg Neutrophils % Seg Neuts % (Manual) Lymphocytes % (Manual) Seg Neutrophils # Seg Neutrophils # Man Lymphocytes # (Manual) APTT D-Dimer ABG pH POC ABG pO2 ABG pO2 ABG HCO3 ABG O2 Saturation ABG Base Excess ABG Hemoglobin ABG Oxyhemoglobin ABG Sodium ABG Chloride ABG Glucose Carboxyhemoglobin Sodium Potassium Chloride Carbon Dioxide BUN Glucose POC Glucose 185 H Lactic Acid Calcium Phosphorus Magnesium Ferritin 1373.0 H AST Ammonia Lactate Dehydrogenase Total Creatine Kinase CK-MB (CK-2) CK-MB (CK-2) Rel Index Troponin T C-Reactive Protein Total Protein Albumin Prealbumin 0.058 L Triglycerides HDL Cholesterol Arterial Blood Glucose Arterial Blood Ionized Calcium Acetaminophen 03/09/21 03/09/21 03/09/21 05:11 06:18 06:18 WBC RBC 3.50 L Hgb 10.8 L Hct 32.8 L D MCV RDW 13.1 L Plt Count 111 L Lymph % (Auto) 9.9 L [place] % (Auto) 9.2 H Lymph # (Auto) 0.5 L [place] # (Auto) Seg Neutrophils % 80.4 H Seg Neuts % (Manual) Lymphocytes % (Manual) Seg Neutrophils # Seg Neutrophils # Man Lymphocytes # (Manual) APTT D-Dimer ABG pH POC ABG pO2 ABG pO2 ABG HCO3 ABG O2 Saturation ABG Base Excess ABG Hemoglobin ABG Oxyhemoglobin ABG Sodium ABG Chloride ABG Glucose Carboxyhemoglobin Sodium 135 L Potassium 5.3 H Chloride Carbon Dioxide BUN 46 H Glucose 178 H POC Glucose 183 H Lactic Acid Calcium 8.2 L Phosphorus Magnesium Ferritin AST Ammonia Lactate Dehydrogenase Total Creatine Kinase CK-MB (CK-2) CK-MB (CK-2) Rel Index Troponin T C-Reactive Protein Total Protein 6.1 L Albumin 2.4 L Prealbumin Triglycerides HDL Cholesterol Arterial Blood Glucose Arterial Blood Ionized Calcium Acetaminophen 03/09/21 03/09/21 03/09/21 07:40 11:39 18:09 WBC RBC Hgb Hct MCV RDW Plt Count Lymph % (Auto) [place] % (Auto) Lymph # (Auto) [place] # (Auto) Seg Neutrophils % Seg Neuts % (Manual) Lymphocytes % (Manual) Seg Neutrophils # Seg Neutrophils # Man Lymphocytes # (Manual) APTT D-Dimer ABG pH 7.485 H POC ABG pO2 179.1 H ABG pO2 ABG HCO3 ABG O2 Saturation ABG Base Excess ABG Hemoglobin 10.8 L ABG Oxyhemoglobin 99.1 H ABG Sodium 133.2 L ABG Chloride ABG Glucose 175 H Carboxyhemoglobin 0 L Sodium Potassium Chloride Carbon Dioxide BUN Glucose POC Glucose 165 H 167 H Lactic Acid Calcium Phosphorus Magnesium Ferritin AST Ammonia Lactate Dehydrogenase Total Creatine Kinase CK-MB (CK-2) CK-MB (CK-2) Rel Index Troponin T C-Reactive Protein Total Protein Albumin Prealbumin Triglycerides HDL Cholesterol Arterial Blood Glucose 175 H Arterial Blood Ionized Calcium 4.3 L Acetaminophen 03/09/21 03/10/21 03/10/21 23:53 02:59 05:14 WBC 12.0 H RBC Hgb 11.7 L Hct MCV 95 H RDW Plt Count Lymph % (Auto) 2.6 L [place] % (Auto) 7.5 H Lymph # (Auto) 0.3 L [place] # (Auto) 0.9 H Seg Neutrophils % 89.8 H Seg Neuts % (Manual) Lymphocytes % (Manual) Seg Neutrophils # 10.8 H Seg Neutrophils # Man Lymphocytes # (Manual) APTT D-Dimer ABG pH POC ABG pO2 ABG pO2 ABG HCO3 ABG O2 Saturation ABG Base Excess ABG Hemoglobin 11.9 L ABG Oxyhemoglobin ABG Sodium ABG Chloride 108.0 H ABG Glucose 232 H Carboxyhemoglobin 0.3 L Sodium Potassium Chloride Carbon Dioxide BUN Glucose POC Glucose 210 H Lactic Acid Calcium Phosphorus Magnesium Ferritin AST Ammonia Lactate Dehydrogenase Total Creatine Kinase CK-MB (CK-2) CK-MB (CK-2) Rel Index Troponin T C-Reactive Protein Total Protein Albumin Prealbumin Triglycerides HDL Cholesterol Arterial Blood Glucose 232 H Arterial Blood Ionized Calcium 4.4 L Acetaminophen 03/10/21 03/10/21 03/10/21 05:14 05:14 05:14 WBC RBC Hgb Hct MCV RDW Plt Count Lymph % (Auto) [place] % (Auto) Lymph # (Auto) [place] # (Auto) Seg Neutrophils % Seg Neuts % (Manual) Lymphocytes % (Manual) Seg Neutrophils # Seg Neutrophils # Man Lymphocytes # (Manual) APTT D-Dimer ABG pH POC ABG pO2 ABG pO2 ABG HCO3 ABG O2 Saturation ABG Base Excess ABG Hemoglobin ABG Oxyhemoglobin ABG Sodium ABG Chloride ABG Glucose Carboxyhemoglobin Sodium Potassium Chloride 107.2 H Carbon Dioxide BUN 48 H Glucose 218 H POC Glucose Lactic Acid Calcium 7.9 L Phosphorus Magnesium Ferritin AST 41 H Ammonia Lactate Dehydrogenase Total Creatine Kinase CK-MB (CK-2) 17.8 H CK-MB (CK-2) Rel Index 18.1 H Troponin T 0.798 H* C-Reactive Protein Total Protein 5.7 L Albumin 2.7 L Prealbumin Triglycerides 173 H HDL Cholesterol 36 L Arterial Blood Glucose Arterial Blood Ionized Calcium Acetaminophen 03/10/21 03/10/21 03/10/21 05:35 11:43 18:17 WBC RBC Hgb Hct MCV RDW Plt Count Lymph % (Auto) [place] % (Auto) Lymph # (Auto) [place] # (Auto) Seg Neutrophils % Seg Neuts % (Manual) Lymphocytes % (Manual) Seg Neutrophils # Seg Neutrophils # Man Lymphocytes # (Manual) APTT D-Dimer ABG pH POC ABG pO2 ABG pO2 ABG HCO3 ABG O2 Saturation ABG Base Excess ABG Hemoglobin ABG Oxyhemoglobin ABG Sodium ABG Chloride ABG Glucose Carboxyhemoglobin Sodium Potassium Chloride Carbon Dioxide BUN Glucose POC Glucose 210 H 221 H 120 H Lactic Acid Calcium Phosphorus Magnesium Ferritin AST Ammonia Lactate Dehydrogenase Total Creatine Kinase CK-MB (CK-2) CK-MB (CK-2) Rel Index Troponin T C-Reactive Protein Total Protein Albumin Prealbumin Triglycerides HDL Cholesterol Arterial Blood Glucose Arterial Blood Ionized Calcium Acetaminophen 03/10/21 03/11/21 03/11/21 18:40 00:44 08:00 WBC RBC Hgb Hct MCV RDW Plt Count Lymph % (Auto) [place] % (Auto) Lymph # (Auto) [place] # (Auto) Seg Neutrophils % Seg Neuts % (Manual) Lymphocytes % (Manual) Seg Neutrophils # Seg Neutrophils # Man Lymphocytes # (Manual) APTT D-Dimer ABG pH POC ABG pO2 ABG pO2 ABG HCO3 ABG O2 Saturation ABG Base Excess ABG Hemoglobin ABG Oxyhemoglobin ABG Sodium ABG Chloride ABG Glucose Carboxyhemoglobin Sodium Potassium Chloride Carbon Dioxide BUN Glucose POC Glucose Lactic Acid Calcium Phosphorus Magnesium Ferritin AST Ammonia Lactate Dehydrogenase Total Creatine Kinase CK-MB (CK-2) CK-MB (CK-2) Rel Index Troponin T 0.477 H* D 0.430 H* 0.363 H* C-Reactive Protein Total Protein Albumin Prealbumin Triglycerides HDL Cholesterol Arterial Blood Glucose Arterial Blood Ionized Calcium Acetaminophen 08/11/2603/11/21 03/11/21 08:00 08:00 11:26 WBC 14.7 H RBC 3.62 L Hgb 11.3 L Hct 34.4 L MCV 95 H RDW Plt Count Lymph % (Auto) [place] % (Auto) Lymph # (Auto) [place] # (Auto) Seg Neutrophils % Seg Neuts % (Manual) Lymphocytes % (Manual) Seg Neutrophils # Seg Neutrophils # Man Lymphocytes # (Manual) APTT D-Dimer ABG pH POC ABG pO2 ABG pO2 ABG HCO3 ABG O2 Saturation ABG Base Excess ABG Hemoglobin ABG Oxyhemoglobin ABG Sodium ABG Chloride ABG Glucose Carboxyhemoglobin Sodium Potassium Chloride Carbon Dioxide BUN 34 H Glucose 167 H POC Glucose 157 H Lactic Acid Calcium Phosphorus 2.40 L Magnesium 2.40 H Ferritin AST Ammonia Lactate Dehydrogenase Total Creatine Kinase CK-MB (CK-2) CK-MB (CK-2) Rel Index Troponin T C-Reactive Protein Total Protein 6.1 L Albumin 2.7 L Prealbumin Triglycerides HDL Cholesterol Arterial Blood Glucose Arterial Blood Ionized Calcium Acetaminophen 03/11/21 03/11/21 03/12/21 17:31 21:50 03:05 WBC RBC Hgb 10.7 L Hct 33.6 L MCV RDW Plt Count Lymph % (Auto) [place] % (Auto) Lymph # (Auto) [place] # (Auto) Seg Neutrophils % Seg Neuts % (Manual) Lymphocytes % (Manual) Seg Neutrophils # Seg Neutrophils # Man Lymphocytes # (Manual) APTT D-Dimer ABG pH POC ABG pO2 ABG pO2 ABG HCO3 ABG O2 Saturation ABG Base Excess ABG Hemoglobin ABG Oxyhemoglobin ABG Sodium ABG Chloride ABG Glucose Carboxyhemoglobin Sodium Potassium Chloride Carbon Dioxide BUN Glucose POC Glucose 154 H 139 H Lactic Acid Calcium Phosphorus Magnesium Ferritin AST Ammonia Lactate Dehydrogenase Total Creatine Kinase CK-MB (CK-2) CK-MB (CK-2) Rel Index Troponin T C-Reactive Protein Total Protein Albumin Prealbumin Triglycerides HDL Cholesterol Arterial Blood Glucose Arterial Blood Ionized Calcium Acetaminophen 03/12/21 03/12/21 03/12/21 04:40 04:40 06:03 WBC 11.6 H RBC 3.28 L Hgb 10.3 L Hct 31.3 L MCV 96 H RDW Plt Count Lymph % (Auto) [place] % (Auto) Lymph # (Auto) [place] # (Auto) Seg Neutrophils % Seg Neuts % (Manual) 92.0 H Lymphocytes % (Manual) 3.0 L Seg Neutrophils # Seg Neutrophils # Man 10.7 H Lymphocytes # (Manual) 0.3 L APTT D-Dimer ABG pH POC ABG pO2 ABG pO2 ABG HCO3 ABG O2 Saturation ABG Base Excess ABG Hemoglobin ABG Oxyhemoglobin ABG Sodium ABG Chloride ABG Glucose Carboxyhemoglobin Sodium Potassium Chloride 108.7 H Carbon Dioxide BUN 28 H Glucose 137 H POC Glucose 137 H Lactic Acid Calcium 8.2 L Phosphorus Magnesium Ferritin AST Ammonia Lactate Dehydrogenase Total Creatine Kinase CK-MB (CK-2) CK-MB (CK-2) Rel Index Troponin T 0.261 H* D C-Reactive Protein Total Protein Albumin Prealbumin Triglycerides HDL Cholesterol Arterial Blood Glucose Arterial Blood Ionized Calcium Acetaminophen
--- NOTE | 2021-03-12 11:02 | Electrocardiograph Report ---
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
--- NOTE | 2021-03-12 11:09 | Electrocardiograph Report ---
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
[2021-03-12] MEDS: LISINOPRIL 5 MG TAB PO SCH (11:11)
[2021-03-12] MEDS: METOPROLOL TARTRATE 50 MG TAB PO SCH (11:12)
--- NOTE | 2021-03-12 11:18 | Electrocardiograph Report ---
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
--- NOTE | 2021-03-12 13:28 | Progress Note ---
Assessment and Plan Cultures: Blood culture pending Covid PCR: Negative A/P: 65-year-old man unknown past medical history as a PUI #Community-acquired pneumonia. Covid testing negative. Elevated procalcitonin, potential bacterial pneumonia. #Acute hypoxic respiratory failure: Currently on venturi mask. #CAD: s/p cardiac catheterization Recs: -Continue cefepime to complete 5 days given elevated procalcitonin. -Anticoagulation per hospital protocol. Thank you for the consult, we will continue to follow. Esther Benedict MD [facility] ([facility] O: [phone] F: [phone] Subjective Date of service: 03/12/21 Interval history: Afebrile, white count 11.6. Venturi mask Objective - Exam Narrative Exam: Physical exam deferred to reduce risk of transmission of COVID-19. Please refer to primary team's note. - Constitutional Vitals: Vital Signs Temp Pulse Resp BP Pulse Ox 98.6 F 82 13 124/61 99 03/12/21 12:00 03/12/21 11:15 03/12/21 11:15 03/12/21 11:15 03/12/21 11:15 Temperature -Last 24 Hours Temperature 98.6 F Temperature 98.0 F Temperature 97.8 F Temperature 97.8 F Temperature 97.0 F - Labs CBC & Chem 7: 03/12/21 04:40 03/12/21 04:40 Labs: Abnormal lab results 03/11/21 03/11/21 03/12/21 Range/Units 17:31 21:50 03:05 WBC (4.5-11.0) K/mm3 RBC (3.65-5.03) M/mm3 Hgb 10.7 L (11.8-15.2) gm/dl Hct 33.6 L (35.5-45.6) % MCV (84-94) fl Seg Neuts % (Manual) (40.0-70.0) % Lymphocytes % (Manual) (13.4-35.0) % Seg Neutrophils # Man (1.8-7.7) K/mm3 Lymphocytes # (Manual) (1.2-5.4) K/mm3 Chloride (98-107) mmol/L BUN (9-20) mg/dL Glucose (75-100) mg/dL POC Glucose 154 H 139 H (70-105) mg/dL Calcium (8.4-10.2) mg/dL Troponin T (0.00-0.029) ng/mL 03/12/21 03/12/21 03/12/21 Range/Units 04:40 04:40 06:03 WBC 11.6 H (4.5-11.0) K/mm3 RBC 3.28 L (3.65-5.03) M/mm3 Hgb 10.3 L (11.8-15.2) gm/dl Hct 31.3 L (35.5-45.6) % MCV 96 H (84-94) fl Seg Neuts % (Manual) 92.0 H (40.0-70.0) % Lymphocytes % (Manual) 3.0 L (13.4-35.0) % Seg Neutrophils # Man 10.7 H (1.8-7.7) K/mm3 Lymphocytes # (Manual) 0.3 L (1.2-5.4) K/mm3 Chloride 108.7 H (98-107) mmol/L BUN 28 H (9-20) mg/dL Glucose 137 H (75-100) mg/dL POC Glucose 137 H (70-105) mg/dL Calcium 8.2 L (8.4-10.2) mg/dL Troponin T 0.261 H* D (0.00-0.029) ng/mL
[2021-03-12] MEDS: AMIODARONE 200 MG TAB PO SCH (14:39)
--- NOTE | 2021-03-12 15:55 | Progress Note ---
Assessment and Plan 65-year-old male brought to hospital by EMS for altered mental status and respiratory failure. On EMS arrival patient had a temperature 102.3 and Patient was also severely hypoxic and required odl-chhqy-[id number] ventilation mask ventilation. EMS also felt the patient had diminished breath sounds in the left side and there was a concern for pneumothorax on the left side. EMS performed a decompression of the left hemothorax but Upon arrival to the emergency room EMS placed the chest tube/catheter became dislodged. Stat chest x-ray showed no obvious left-sided pneumothorax. Given altered mental status and respiratory failure with history of hypoxia patient was intubated by the ED physician. Code sepsis was called and the patient was treated empirically with steroids and duo nebs and ceftriaxone and azithromycin, admitted to ICU for further further stabilization and Mx. He is neg for COVID x2. His hospital stay got complicated with STEMI and V. tach cardiac arrest. S/p cardiac cath with PCI to mid LAD by cardiology. Patient remains in the ICU with altered mental status, status post STEMI with PCI, status post V. tach cardiac arrest and now developed right foot ischemia following cardiac cath.. A/P: -s/p Vtech cardiac arrest on 03/10 Likely due to STEMI s/p ACLS with shock with spontaneous return of circulation Placed on amiodarone drip -Acute anteriorlateral stemi s/p coronary intervention to the mid LAD, and successful implantation of the 3.0 x 15 mm drug-eluting stent. Cardiology following, now on Aggrastat drip Initiated on aspirin statin and Plavix No beta-avery as patient on Levophed drip --Right foot ischemia Noted after PCI placed on low intensity heparin drip following Aggrastat drip per cardiology recommendation Vascular consulted and recommended further work-up when patient clinically more stable --Acute systolic CHF with EF 35 to 40% Continue aspirin statin and Plavix, likely acute ischemic cardiomyopathy from STEMI Patient currently on pressor support, continue to monitor volume status -- Acute respiratory failure with hypoxia Patient intubated in the emergency room patient, s/p extubation yesterday Patient now on venti mask 03/08 CTA Chest: BL LL PNA noted, small left apical pneumo appreciated. COVID pcr negative x2 Fentanyl, Versed for sedation Nebulizers: Albuterol /budesonide scheduled. IV Cefepime/ IV Vancomycin Solumedrol 60 q 8hr IV Systems Consultant following --Acute encephalopathy Secondary to sepsis, high fever and hypoxia Patient initiated on IV antibiotics and vent support now extubated Possible aspiration pneumonia which cannot be ruled out CT head showed no acute infarct but extensive atherosclerotic disease --Cerebral atherosclerosis Continue aspirin statin and Plavix -- Sepsis with shock Patient with criteria for sepsis with elevated lactic acid BCx, SCx pending. Metabolic acidosis and hypotensive -- Bilateral pneumonia Patient initiated on IV cefepime and vancomycin ID consult requested Possible aspiration pneumonia also in the differential diagnosis -- Suspected COVID-19 virus infection, ruled out with 2 -ve test -- Hyponatremia Resolved with with gentle iv fluid -- Transaminitis Check acute hepatitis profile Possible secondary to underlying sepsis and hypotension -- Pneumothorax, left Small pneumothorax, s/p chest tube by EMS No intervention at this point per intencivist -- COPD with exacerbation chronic smoker nebulizer tx, supplemental O2 -- Hyperglycemia could be steroid induced Check A1c and coverage for now -- Anemia, likely chronic Anemia work-up -- DVT prophylaxis On heparin and GI prophylaxis The high probability of a clinically significant, sudden or life threatening deterioration of the system(s) required my full and direct attention, intervention and personal management. The aggregate critical care time was [35] minutes. This time is in addition to time spent performing reported procedures but includes the following: [x] Data Review and interpretation [x] Patient assessment and monitoring of vital signs [x] Documentation [x] Medication orders and management Daily clinical course 03/09: Hypotensive in AM, Dr. Inman placed right IJ CVC. Patient intiated on pressors. UOP 200 cc overnight. 03/10: Planned for extubation today, repeat covid test pending. RN called for elevated trop - ordered serial trop, ekg, 2d echo, aspirin, statin and placed cardiology consult. will cont to follow clinically, pt remains on levophed 03/11: Patient had Vtech cardiac arrest last night. EKG showed acute STEMI. placed on amioderone and heparin drip. S/p PCI today with stent placement, discontinued heparin drip and started on Aggrastat. Patient now noted with cold bluish LE right>left. Discussed with Dr Armstrong and recommended to initiate low intensity heparin drip after sheath was removed. Placed order and discussed the plan with nurse and pharmacy. Ordered stat lower extremity arterial Doppler and consulted vascular surgeon. Patient remains on Ventimask with 10 to 15 L of O2. Patient also remains confused, continue supportive care and follow clinically. 03/12/21: LE remain clod and cyanotic, R> L. cont heparin drip, monitor h/h. vascular procedure when clinically more stable. discussed with daughter and updated with all clinical details. pt remains on pressor. critically ill. Subjective Date of service: 03/12/21 Interval history: Patient seen and examined Patient on supplemental O2 with nasal cannula Patient remains confused, denies any chest pain Discussed with RN, vitals noted All daughter and updated her with all Clinical details Objective - Exam Narrative Exam: General appearance: confused, ill appearing elderly gentleman. Eyes: non-icteric ENT: other (orally intubated and sedated.) Neck: supple, right IJ CVC inplace Respiratory: Bilateral: diminished breath sounds Cardiovascular: regular rate and rhythm Gastrointestinal: normoactive bowel sounds Extremities: no edema, cold and cyanotic foot rt>left Psych: unable to assess Neuro: moves extremities : Savage in place. - Constitutional Vitals: Vital Signs - 12hr 03/12/21 03/12/21 03/12/21 04:00 04:01 04:15 Temperature Pulse Rate 85 70 72 Pulse Rate [ Bilateral Throughout] Pulse Rate [ 85 Right Radial] Respiratory 10 L 15 14 Rate Respiratory Rate [Bilateral Throughout] Blood Pressure 115/50 120/53 O2 Sat by Pulse 100 89 Oximetry 03/12/21 03/12/21 03/12/21 04:31 04:45 05:01 Temperature Pulse Rate 70 70 70 Pulse Rate [ Bilateral Throughout] Pulse Rate [ Right Radial] Respiratory 14 11 L 13 Rate Respiratory Rate [Bilateral Throughout] Blood Pressure 94/64 118/55 118/55 O2 Sat by Pulse 99 100 Oximetry 03/12/21 03/12/21 03/12/21 05:15 05:31 05:45 Temperature Pulse Rate 72 72 70 Pulse Rate [ Bilateral Throughout] Pulse Rate [ Right Radial] Respiratory 15 15 15 Rate Respiratory Rate [Bilateral Throughout] Blood Pressure 95/75 85/62 85/62 O2 Sat by Pulse 100 95 99 Oximetry 03/12/21 03/12/21 03/12/21 06:00 06:15 06:31 Temperature Pulse Rate 73 72 73 Pulse Rate [ Bilateral Throughout] Pulse Rate [ Right Radial] Respiratory 11 L 16 16 Rate Respiratory Rate [Bilateral Throughout] Blood Pressure 117/51 101/51 92/43 O2 Sat by Pulse 95 94 97 Oximetry 03/12/21 03/12/21 03/12/21 06:45 07:01 07:15 Temperature Pulse Rate 74 74 71 Pulse Rate [ Bilateral Throughout] Pulse Rate [ Right Radial] Respiratory 15 12 15 Rate Respiratory Rate [Bilateral Throughout] Blood Pressure 92/43 51/27 51/27 O2 Sat by Pulse 97 96 100 Oximetry 03/12/21 03/12/21 03/12/21 07:31 07:45 08:00 Temperature 98.0 F Pulse Rate 72 85 70 Pulse Rate [ Bilateral Throughout] Pulse Rate [ Right Radial] Respiratory 13 12 14 Rate Respiratory Rate [Bilateral Throughout] Blood Pressure 136/64 125/48 O2 Sat by Pulse 95 95 100 Oximetry 03/12/21 03/12/21 03/12/21 08:02 08:03 08:12 Temperature Pulse Rate Pulse Rate [ 70 Bilateral Throughout] Pulse Rate [ Right Radial] Respiratory Rate Respiratory 18 Rate [Bilateral Throughout] Blood Pressure O2 Sat by Pulse 100 100 Oximetry 03/12/21 03/12/21 03/12/21 08:15 08:30 08:45 Temperature Pulse Rate 74 75 75 Pulse Rate [ Bilateral Throughout] Pulse Rate [ Right Radial] Respiratory 13 13 13 Rate Respiratory Rate [Bilateral Throughout] Blood Pressure 125/48 116/80 118/73 O2 Sat by Pulse 98 100 100 Oximetry 03/12/21 03/12/21 03/12/21 09:01 09:15 09:31 Temperature Pulse Rate 74 75 76 Pulse Rate [ Bilateral Throughout] Pulse Rate [ Right Radial] Respiratory 13 12 15 Rate Respiratory Rate [Bilateral Throughout] Blood Pressure 126/57 123/43 123/43 O2 Sat by Pulse 95 98 96 Oximetry 03/12/21 03/12/21 03/12/21 09:45 10:01 10:15 Temperature Pulse Rate 74 76 74 Pulse Rate [ Bilateral Throughout] Pulse Rate [ Right Radial] Respiratory 18 12 14 Rate Respiratory Rate [Bilateral Throughout] Blood Pressure 123/43 115/48 115/48 O2 Sat by Pulse 96 100 100 Oximetry 03/12/21 03/12/21 03/12/21 10:31 10:45 11:01 Temperature Pulse Rate 79 88 91 H Pulse Rate [ Bilateral Throughout] Pulse Rate [ Right Radial] Respiratory 13 16 20 Rate Respiratory Rate [Bilateral Throughout] Blood Pressure 137/62 137/62 137/62 O2 Sat by Pulse 100 94 Oximetry 03/12/21 03/12/21 03/12/21 11:11 11:12 11:15 Temperature Pulse Rate 87 87 82 Pulse Rate [ Bilateral Throughout] Pulse Rate [ Right Radial] Respiratory 13 Rate Respiratory Rate [Bilateral Throughout] Blood Pressure 132/67 132/67 124/61 O2 Sat by Pulse 99 Oximetry 03/12/21 03/12/21 03/12/21 11:31 11:45 12:00 Temperature 98.6 F Pulse Rate 81 79 Pulse Rate [ Bilateral Throughout] Pulse Rate [ Right Radial] Respiratory 13 14 Rate Respiratory Rate [Bilateral Throughout] Blood Pressure 86/53 86/53 O2 Sat by Pulse 82 L 98 Oximetry 03/12/21 03/12/21 03/12/21 12:01 12:15 12:31 Temperature Pulse Rate 80 78 76 Pulse Rate [ Bilateral Throughout] Pulse Rate [ Right Radial] Respiratory 14 16 13 Rate Respiratory Rate [Bilateral Throughout] Blood Pressure 112/85 112/85 85/61 O2 Sat by Pulse 96 92 97 Oximetry 03/12/21 03/12/21 03/12/21 12:45 13:01 13:15 Temperature Pulse Rate 75 81 89 Pulse Rate [ Bilateral Throughout] Pulse Rate [ Right Radial] Respiratory 13 15 17 Rate Respiratory Rate [Bilateral Throughout] Blood Pressure 85/61 107/67 160/63 O2 Sat by Pulse 87 100 100 Oximetry 03/12/21 03/12/21 03/12/21 13:31 13:45 14:01 Temperature Pulse Rate 80 81 85 Pulse Rate [ Bilateral Throughout] Pulse Rate [ Right Radial] Respiratory 13 14 14 Rate Respiratory Rate [Bilateral Throughout] Blood Pressure 152/62 122/69 128/68 O2 Sat by Pulse 100 98 100 Oximetry 03/12/21 03/12/21 03/12/21 14:15 14:31 14:45 Temperature Pulse Rate 80 78 79 Pulse Rate [ Bilateral Throughout] Pulse Rate [ Right Radial] Respiratory 14 15 17 Rate Respiratory Rate [Bilateral Throughout] Blood Pressure 127/64 125/59 125/59 O2 Sat by Pulse 100 100 Oximetry 03/12/21 03/12/21 15:01 15:16 Temperature Pulse Rate 87 97 H Pulse Rate [ Bilateral Throughout] Pulse Rate [ Right Radial] Respiratory 14 15 Rate Respiratory Rate [Bilateral Throughout] Blood Pressure 146/63 143/59 O2 Sat by Pulse 100 100 Oximetry - Labs CBC & Chem 7: 03/14/21 04:00 03/14/21 04:00 Labs: Abnormal lab results 03/11/21 03/11/21 03/12/21 Range/Units 17:31 21:50 03:05 WBC (4.5-11.0) K/mm3 RBC (3.65-5.03) M/mm3 Hgb 10.7 L (11.8-15.2) gm/dl Hct 33.6 L (35.5-45.6) % MCV (84-94) fl Seg Neuts % (Manual) (40.0-70.0) % Lymphocytes % (Manual) (13.4-35.0) % Seg Neutrophils # Man (1.8-7.7) K/mm3 Lymphocytes # (Manual) (1.2-5.4) K/mm3 Chloride (98-107) mmol/L BUN (9-20) mg/dL Glucose (75-100) mg/dL POC Glucose 154 H 139 H (70-105) mg/dL Calcium (8.4-10.2) mg/dL Troponin T (0.00-0.029) ng/mL 03/12/21 03/12/21 03/12/21 Range/Units 04:40 04:40 06:03 WBC 11.6 H (4.5-11.0) K/mm3 RBC 3.28 L (3.65-5.03) M/mm3 Hgb 10.3 L (11.8-15.2) gm/dl Hct 31.3 L (35.5-45.6) % MCV 96 H (84-94) fl Seg Neuts % (Manual) 92.0 H (40.0-70.0) % Lymphocytes % (Manual) 3.0 L (13.4-35.0) % Seg Neutrophils # Man 10.7 H (1.8-7.7) K/mm3 Lymphocytes # (Manual) 0.3 L (1.2-5.4) K/mm3 Chloride 108.7 H (98-107) mmol/L BUN 28 H (9-20) mg/dL Glucose 137 H (75-100) mg/dL POC Glucose 137 H (70-105) mg/dL Calcium 8.2 L (8.4-10.2) mg/dL Troponin T 0.261 H* D (0.00-0.029) ng/mL 03/12/21 Range/Units 14:17 WBC (4.5-11.0) K/mm3 RBC (3.65-5.03) M/mm3 Hgb (11.8-15.2) gm/dl Hct (35.5-45.6) % MCV (84-94) fl Seg Neuts % (Manual) (40.0-70.0) % Lymphocytes % (Manual) (13.4-35.0) % Seg Neutrophils # Man (1.8-7.7) K/mm3 Lymphocytes # (Manual) (1.2-5.4) K/mm3 Chloride (98-107) mmol/L BUN (9-20) mg/dL Glucose (75-100) mg/dL POC Glucose 165 H (70-105) mg/dL Calcium (8.4-10.2) mg/dL Troponin T (0.00-0.029) ng/mL HEART Score - HEART Score Age: > 65 Risk factors: No known risk factors Troponin: Troponin T 0.261 ng/mL (0.00-0.029) H* D 03/12/21 04:40 Troponin: < normal limit - Critical Actions Critical Actions: 0-3 pts:0.9-1.7%risk of adverse cardiac event.Candidate for discharge
[2021-03-12] MEDS: METOPROLOL TARTRATE 25 MG TAB PO SCH (17:57)
[2021-03-13] MEDS: METOPROLOL TARTRATE 25 MG TAB PO SCH ×4 (00:26→19:13)
[2021-03-13] MEDS: HEPARIN/ 0.45% NACL DRIP 25,000 UNIT/500 ML BAG IV SCH (02:39)
[2021-03-13] MEDS: CEFEPIME/NS 2 GM/100 ML 2 GM/100 ML BAG IV SCH ×2 (02:43→13:49)
[2021-03-13 05:43] LABS: Hematocrit 27.7 % (35.5-45.6); Hemoglobin 9.1 gm/dl (11.8-15.2)
[2021-03-13] MEDS: methylPREDNISolone Sod Succinate 125 MG/2 ML INJ IV SCH (06:07)
[2021-03-13] MEDS: INSULIN LISPRO 100 UNIT/ML SUB-Q SCH ×4 (06:08→19:59)
[2021-03-13] MEDS: ARFORMOTEROL 15 MCG/2 ML NEBU IH SCH ×3 (08:01→22:45)
[2021-03-13] MEDS: BUDESONIDE 0.5 MG/2 ML NEBU IH SCH ×3 (08:45→22:45)
--- NOTE | 2021-03-13 09:30 | Progress Note ---
Assessment and Plan Acute ST elevation myocardial infarction complicated by ventricular fibrillation arrest; on oral amiodarone. s/p PCI of the mid LAD using drug-eluting stent; on plavix and aspirin. LVEF 35-40% by echo Acute respiratory failure Indeterminate PCR serology Altered mental status Hx of COPD Bilateral PAD Continue optimal medical therapy for coronary artery disease, and underlying ischemic cardiomyopathy. Subjective Date of service: 03/13/21 Interval history: Resting in bed and appears comfortable. No cardiac events reported. Objective Vital Signs Temp Pulse Pulse Resp Resp BP Pulse Ox 03/13/21 09:25 100 03/13/21 08:00 97.9 F 77 15 135/119 100 03/13/21 07:30 73 19 137/47 03/13/21 07:01 83 19 146/50 03/13/21 06:31 93 H 15 142/53 03/13/21 06:07 85 140/62 03/13/21 06:00 92 H 17 138/72 90 03/13/21 05:31 93 H 17 138/72 96 03/13/21 05:00 81 15 129/60 100 03/13/21 04:31 91 H 18 141/66 83 L 03/13/21 04:01 88 19 134/69 87 03/13/21 04:00 92 H 03/13/21 03:45 20 86 03/13/21 03:38 97.8 F 03/13/21 03:30 78 17 121/56 93 03/13/21 03:00 79 17 125/56 94 03/13/21 02:30 74 19 125/56 97 03/13/21 02:01 74 16 122/48 92 03/13/21 01:31 78 18 117/45 94 03/13/21 01:00 75 15 107/50 03/13/21 00:43 99 03/13/21 00:30 82 19 104/45 03/13/21 00:26 77 107/53 03/13/21 00:00 74 18 107/53 03/12/21 23:51 97.6 F 03/12/21 23:31 77 20 112/48 03/12/21 23:21 74 21 110/45 48 L 03/12/21 23:01 73 20 110/45 03/12/21 22:30 86 16 111/58 03/12/21 22:01 111/58 91 21 21:31 80 16 111/58 98 05 21:01 83 21 53/16 87 05 20:33 98 03/12/21 20:31 81 17 104/56 94 05 20:01 76 12 104/56 100 03/12/21 20:00 98.1 F 84 83 14 100 03/12/21 19:30 76 20 104/56 100 03/12/21 19:01 75 21 114/57 100 03/12/21 18:45 65 13 114/57 100 03/12/21 18:31 77 11 L 72/45 99 03/12/21 18:15 73 14 118/53 100 03/12/21 18:01 91 H 19 118/53 99 03/12/21 17:57 91 H 120/65 03/12/21 17:45 111 H 18 120/65 89 03/12/21 17:31 93 H 13 120/63 99 03/12/21 17:15 87 16 120/63 100 03/12/21 17:01 79 14 120/63 100 03/12/21 16:45 117 H 25 H 134/65 100 03/12/21 16:30 78 12 134/65 100 03/12/21 16:15 79 18 125/67 100 03/12/21 16:10 100 03/12/21 16:01 77 12 143/59 100 03/12/21 16:00 80 03/12/21 15:45 82 13 134/51 99 03/12/21 15:30 107 H 18 143/59 100 03/12/21 15:16 97 H 15 143/59 100 03/12/21 15:01 87 14 146/63 100 03/12/21 14:45 79 17 125/59 03/12/21 14:31 78 15 125/59 100 03/12/21 14:15 80 14 127/64 100 05 14:01 85 14 128/68 100 03/12/21 13:45 81 14 122/69 98 03/12/21 13:31 80 13 152/62 100 05 13:15 89 17 160/63 100 03/12/21 13:01 81 15 107/67 100 03/12/21 12:45 75 13 85/61 87 03/12/21 12:31 76 13 85/61 97 03/12/21 12:15 78 16 112/85 92 03/12/21 12:01 80 14 112/85 96 03/12/21 12:00 98.6 F 78 95 03/12/21 11:45 79 14 86/53 98 03/12/21 11:31 81 13 86/53 82 L 03/12/21 11:15 82 13 124/61 99 03/12/21 11:12 87 132/67 03/12/21 11:11 87 132/67 03/12/21 11:01 91 H 20 137/62 03/12/21 10:45 88 16 137/62 94 03/12/21 10:31 79 13 137/62 100 03/12/21 10:15 74 14 115/48 100 03/12/21 10:01 76 12 115/48 100 03/12/21 09:45 74 18 123/43 96 03/12/21 09:31 76 15 123/43 96 - Physical Examination General: No Apparent Distress HEENT: Positive: PERRL Neck: Positive: neck supple Cardiac: Positive: Reg Rate and Rhythm Lungs: Positive: Decreased Breath Sounds Neuro: Positive: Weakness Extremities: Absent: edema - Labs and Meds CBC 03/13/21 Range/Units 04:09 Hgb 9.1 L (11.8-15.2) gm/dl Hct 27.7 L (35.5-45.6) % Plt Count 225 (140-440) K/mm3
[2021-03-13] MEDS: ASPIRIN 81 MG TAB CHEW PO SCH (09:34)
[2021-03-13] MEDS: FAMOTIDINE 20 MG TAB PO SCH (09:34)
[2021-03-13] MEDS: AMIODARONE 200 MG TAB PO SCH (09:34)
[2021-03-13] MEDS: CLOPIDOGREL 75 MG TAB PO SCH (09:34)
--- NOTE | 2021-03-13 09:52 | Progress Note ---
Assessment and Plan 65 y/o male with acute respiratory, exact etiology unknown 03/13/21: Clinically appears stable. HgB is down to 9.1, came in at 13 but this may heme concentrated. Appears stable for transfer]. Medical therapy for CAD. Will change steroids to 40q8 03/12/21: Clinically appears stable. Will discuss with cards but I feel patient is stable for step down vs tele. Likely no tele beds available but could down grade and keep in unit. Will discuss and make a decision later today. 03/11/21: Follow up cath results. Monitor volume status. Maintain potassium of 4 and mag of 2. monitor renal function. Goal directed medical therapy. Wean FiO2 for sats >88% down to baseline of 2 liters NC. Will continue to follow. Smoking cessation. 03/10/21: Sedation stopped and now discontinued from OCT. Suspect that when patient starts waking up he can be extubated, no matter what time this is, even if it is the director mba. The repeat EKG still shows some ST elevation in V3 but T waves have inverted V4, V5 and V6. Per the tech, the tech from yesterday did an EKG off the wrong order but the EKG showing ST elevations was not shown to a physician. Will order Troponin now and obtain 2D echo once COVID results are back. At this point, pending these labs will determine cardiology consult. As stated before, hemodynamically the patient is stable. Tech needs order for EKG but as I explained, not able to back date an order and there was not an order for that EKG to begin with. Very difficult case in regards to EKG. Will speak with risk about this. 1. Continue supportive measures 2. CXR is stable and IJ in good position 3. Per Nurse, patient has COPD and chronic respiratory failure and is still smoking. Guarded prognosis Subjective Date of service: 03/13/21 Interval history: Awake and alert but appears uncomfortable. Currently in a large bowel movement. Black in color. Objective Vital Signs - 12hr 03/12/21 03/12/21 03/12/21 22:01 22:30 23:01 Temperature Pulse Rate 86 73 Respiratory 16 20 Rate Blood Pressure 111/58 111/58 110/45 O2 Sat by Pulse 91 Oximetry 03/12/21 03/12/21 03/12/21 23:21 23:31 23:51 Temperature 97.6 F Pulse Rate 74 77 Respiratory 21 20 Rate Blood Pressure 110/45 112/48 O2 Sat by Pulse 48 L Oximetry 03/13/21 03/13/21 03/13/21 00:00 00:26 00:30 Temperature Pulse Rate 74 77 82 Respiratory 18 19 Rate Blood Pressure 107/53 107/53 104/45 O2 Sat by Pulse Oximetry 03/13/21 03/13/21 03/13/21 00:43 01:00 01:31 Temperature Pulse Rate 75 78 Respiratory 15 18 Rate Blood Pressure 107/50 117/45 O2 Sat by Pulse 99 94 Oximetry 03/13/21 03/13/21 03/13/21 02:01 02:30 03:00 Temperature Pulse Rate 74 74 79 Respiratory 16 19 17 Rate Blood Pressure 122/48 125/56 125/56 O2 Sat by Pulse 92 97 94 Oximetry 03/13/21 03/13/21 03/13/21 03:30 03:38 03:45 Temperature 97.8 F Pulse Rate 78 Respiratory 17 20 Rate Blood Pressure 121/56 O2 Sat by Pulse 93 86 Oximetry 03/13/21 03/13/21 03/13/21 04:00 04:01 04:31 Temperature Pulse Rate 92 H 88 91 H Respiratory 19 18 Rate Blood Pressure 134/69 141/66 O2 Sat by Pulse 87 83 L Oximetry 03/13/21 03/13/21 03/13/21 05:00 05:31 06:00 Temperature Pulse Rate 81 93 H 92 H Respiratory 15 17 17 Rate Blood Pressure 129/60 138/72 138/72 O2 Sat by Pulse 100 96 90 Oximetry 03/13/21 03/13/21 03/13/21 06:07 06:31 07:01 Temperature Pulse Rate 85 93 H 83 Respiratory 15 19 Rate Blood Pressure 140/62 142/53 146/50 O2 Sat by Pulse Oximetry 03/13/21 03/13/21 03/13/21 07:30 08:00 08:30 Temperature 97.9 F Pulse Rate 73 77 75 Respiratory 19 15 21 Rate Blood Pressure 137/47 135/119 122/45 O2 Sat by Pulse 100 98 Oximetry 03/13/21 03/13/21 03/13/21 09:00 09:25 09:31 Temperature Pulse Rate 76 84 Respiratory 22 20 Rate Blood Pressure 120/51 124/34 O2 Sat by Pulse 92 100 98 Oximetry Constitutional: comatose Eyes: non-icteric ENT: other (orally intubated and sedated.) Neck: supple Effort: normal Ascultation: Bilateral: diminished breath sounds Cardiovascular: regular rate and rhythm Gastrointestinal: normoactive bowel sounds Extremities: no edema, pink and warm Neurologic: unable to assess CBC and BMP: 03/13/21 04:09 03/12/21 04:40 ABG, PT/INR, D-dimer: ABG ABG pH 7.352 (7.320-7.450) 03/10/21 02:59 POC ABG pCO2 44.5 mmHg (32.0-48.0) 03/10/21 02:59 ABG pCO2 43.0 mm Hg 03/08/21 15:12 POC ABG pO2 105.3 mmHg (83-108) 03/10/21 02:59 ABG pO2 381.9 mm Hg (80.0-90.0) H 03/08/21 15:12 POC ABG HCO3 24.1 03/10/21 02:59 ABG O2 Saturation 97.6 (0-100) 03/10/21 02:59 PT/INR, D-dimer PT 14.6 Sec. (12.2-14.9) 03/11/21 21:50 INR 1.09 (0.87-1.13) 03/11/21 21:50 D-Dimer 832.06 ng/mlDDU (0-234) H 03/08/21 15:49 Abnormal lab findings: Abnormal Labs 03/08/21 03/08/21 03/08/21 15:12 15:49 15:49 WBC RBC Hgb Hct MCV 95 H RDW 12.8 L Plt Count Lymph % (Auto) 5.1 L [place] % (Auto) 8.6 H Lymph # (Auto) 0.4 L [place] # (Auto) Seg Neutrophils % 86.1 H Seg Neuts % (Manual) Lymphocytes % (Manual) Seg Neutrophils # Seg Neutrophils # Man Lymphocytes # (Manual) APTT 37.1 H D-Dimer 832.06 H ABG pH 7.478 H POC ABG pO2 ABG pO2 381.9 H ABG HCO3 31.2 H ABG O2 Saturation 99.6 H ABG Base Excess 6.9 H ABG Hemoglobin 13.0 L ABG Oxyhemoglobin ABG Sodium ABG Chloride ABG Glucose Carboxyhemoglobin Sodium Potassium Chloride Carbon Dioxide BUN Glucose POC Glucose Lactic Acid Calcium Phosphorus Magnesium Ferritin AST Ammonia Lactate Dehydrogenase Total Creatine Kinase CK-MB (CK-2) CK-MB (CK-2) Rel Index Troponin T C-Reactive Protein Total Protein Albumin Prealbumin Triglycerides HDL Cholesterol Arterial Blood Glucose Arterial Blood Ionized Calcium Acetaminophen 03/08/21 03/08/21 03/08/21 15:49 15:49 15:49 WBC RBC Hgb Hct MCV RDW Plt Count Lymph % (Auto) [place] % (Auto) Lymph # (Auto) [place] # (Auto) Seg Neutrophils % Seg Neuts % (Manual) Lymphocytes % (Manual) Seg Neutrophils # Seg Neutrophils # Man Lymphocytes # (Manual) APTT D-Dimer ABG pH POC ABG pO2 ABG pO2 ABG HCO3 ABG O2 Saturation ABG Base Excess ABG Hemoglobin ABG Oxyhemoglobin ABG Sodium ABG Chloride ABG Glucose Carboxyhemoglobin Sodium 134 L Potassium Chloride 89.7 L Carbon Dioxide 32 H BUN 47 H Glucose 150 H POC Glucose Lactic Acid Calcium Phosphorus Magnesium Ferritin AST Ammonia 22.0 L Lactate Dehydrogenase Total Creatine Kinase 52 L CK-MB (CK-2) CK-MB (CK-2) Rel Index Troponin T C-Reactive Protein Total Protein Albumin 3.2 L Prealbumin Triglycerides HDL Cholesterol Arterial Blood Glucose Arterial Blood Ionized Calcium Acetaminophen 03/08/21 03/08/21 03/08/21 15:49 15:49 15:49 WBC RBC Hgb Hct MCV RDW Plt Count Lymph % (Auto) [place] % (Auto) Lymph # (Auto) [place] # (Auto) Seg Neutrophils % Seg Neuts % (Manual) Lymphocytes % (Manual) Seg Neutrophils # Seg Neutrophils # Man Lymphocytes # (Manual) APTT D-Dimer ABG pH POC ABG pO2 ABG pO2 ABG HCO3 ABG O2 Saturation ABG Base Excess ABG Hemoglobin ABG Oxyhemoglobin ABG Sodium ABG Chloride ABG Glucose Carboxyhemoglobin Sodium Potassium Chloride Carbon Dioxide BUN Glucose 150 H POC Glucose Lactic Acid 3.40 H* Calcium Phosphorus Magnesium Ferritin AST Ammonia Lactate Dehydrogenase 209 H Total Creatine Kinase CK-MB (CK-2) CK-MB (CK-2) Rel Index Troponin T C-Reactive Protein 24.00 H Total Protein Albumin Prealbumin Triglycerides HDL Cholesterol Arterial Blood Glucose Arterial Blood Ionized Calcium Acetaminophen 5.0 L 03/08/21 03/08/21 03/09/21 15:49 23:27 00:00 WBC RBC Hgb Hct MCV RDW Plt Count Lymph % (Auto) [place] % (Auto) Lymph # (Auto) [place] # (Auto) Seg Neutrophils % Seg Neuts % (Manual) Lymphocytes % (Manual) Seg Neutrophils # Seg Neutrophils # Man Lymphocytes # (Manual) APTT D-Dimer ABG pH POC ABG pO2 ABG pO2 ABG HCO3 ABG O2 Saturation ABG Base Excess ABG Hemoglobin ABG Oxyhemoglobin ABG Sodium ABG Chloride ABG Glucose Carboxyhemoglobin Sodium Potassium Chloride Carbon Dioxide BUN Glucose POC Glucose 185 H Lactic Acid Calcium Phosphorus Magnesium Ferritin 1373.0 H AST Ammonia Lactate Dehydrogenase Total Creatine Kinase CK-MB (CK-2) CK-MB (CK-2) Rel Index Troponin T C-Reactive Protein Total Protein Albumin Prealbumin 0.058 L Triglycerides HDL Cholesterol Arterial Blood Glucose Arterial Blood Ionized Calcium Acetaminophen 03/09/21 03/09/21 03/09/21 05:11 06:18 06:18 WBC RBC 3.50 L Hgb 10.8 L Hct 32.8 L D MCV RDW 13.1 L Plt Count 111 L Lymph % (Auto) 9.9 L [place] % (Auto) 9.2 H Lymph # (Auto) 0.5 L [place] # (Auto) Seg Neutrophils % 80.4 H Seg Neuts % (Manual) Lymphocytes % (Manual) Seg Neutrophils # Seg Neutrophils # Man Lymphocytes # (Manual) APTT D-Dimer ABG pH POC ABG pO2 ABG pO2 ABG HCO3 ABG O2 Saturation ABG Base Excess ABG Hemoglobin ABG Oxyhemoglobin ABG Sodium ABG Chloride ABG Glucose Carboxyhemoglobin Sodium 135 L Potassium 5.3 H Chloride Carbon Dioxide BUN 46 H Glucose 178 H POC Glucose 183 H Lactic Acid Calcium 8.2 L Phosphorus Magnesium Ferritin AST Ammonia Lactate Dehydrogenase Total Creatine Kinase CK-MB (CK-2) CK-MB (CK-2) Rel Index Troponin T C-Reactive Protein Total Protein 6.1 L Albumin 2.4 L Prealbumin Triglycerides HDL Cholesterol Arterial Blood Glucose Arterial Blood Ionized Calcium Acetaminophen 03/09/21 03/09/21 03/09/21 07:40 11:39 18:09 WBC RBC Hgb Hct MCV RDW Plt Count Lymph % (Auto) [place] % (Auto) Lymph # (Auto) [place] # (Auto) Seg Neutrophils % Seg Neuts % (Manual) Lymphocytes % (Manual) Seg Neutrophils # Seg Neutrophils # Man Lymphocytes # (Manual) APTT D-Dimer ABG pH 7.485 H POC ABG pO2 179.1 H ABG pO2 ABG HCO3 ABG O2 Saturation ABG Base Excess ABG Hemoglobin 10.8 L ABG Oxyhemoglobin 99.1 H ABG Sodium 133.2 L ABG Chloride ABG Glucose 175 H Carboxyhemoglobin 0 L Sodium Potassium Chloride Carbon Dioxide BUN Glucose POC Glucose 165 H 167 H Lactic Acid Calcium Phosphorus Magnesium Ferritin AST Ammonia Lactate Dehydrogenase Total Creatine Kinase CK-MB (CK-2) CK-MB (CK-2) Rel Index Troponin T C-Reactive Protein Total Protein Albumin Prealbumin Triglycerides HDL Cholesterol Arterial Blood Glucose 175 H Arterial Blood Ionized Calcium 4.3 L Acetaminophen 03/09/21 03/10/21 03/10/21 23:53 02:59 05:14 WBC 12.0 H RBC Hgb 11.7 L Hct MCV 95 H RDW Plt Count Lymph % (Auto) 2.6 L [place] % (Auto) 7.5 H Lymph # (Auto) 0.3 L [place] # (Auto) 0.9 H Seg Neutrophils % 89.8 H Seg Neuts % (Manual) Lymphocytes % (Manual) Seg Neutrophils # 10.8 H Seg Neutrophils # Man Lymphocytes # (Manual) APTT D-Dimer ABG pH POC ABG pO2 ABG pO2 ABG HCO3 ABG O2 Saturation ABG Base Excess ABG Hemoglobin 11.9 L ABG Oxyhemoglobin ABG Sodium ABG Chloride 108.0 H ABG Glucose 232 H Carboxyhemoglobin 0.3 L Sodium Potassium Chloride Carbon Dioxide BUN Glucose POC Glucose 210 H Lactic Acid Calcium Phosphorus Magnesium Ferritin AST Ammonia Lactate Dehydrogenase Total Creatine Kinase CK-MB (CK-2) CK-MB (CK-2) Rel Index Troponin T C-Reactive Protein Total Protein Albumin Prealbumin Triglycerides HDL Cholesterol Arterial Blood Glucose 232 H Arterial Blood Ionized Calcium 4.4 L Acetaminophen 03/10/21 03/10/21 03/10/21 05:14 05:14 05:14 WBC RBC Hgb Hct MCV RDW Plt Count Lymph % (Auto) [place] % (Auto) Lymph # (Auto) [place] # (Auto) Seg Neutrophils % Seg Neuts % (Manual) Lymphocytes % (Manual) Seg Neutrophils # Seg Neutrophils # Man Lymphocytes # (Manual) APTT D-Dimer ABG pH POC ABG pO2 ABG pO2 ABG HCO3 ABG O2 Saturation ABG Base Excess ABG Hemoglobin ABG Oxyhemoglobin ABG Sodium ABG Chloride ABG Glucose Carboxyhemoglobin Sodium Potassium Chloride 107.2 H Carbon Dioxide BUN 48 H Glucose 218 H POC Glucose Lactic Acid Calcium 7.9 L Phosphorus Magnesium Ferritin AST 41 H Ammonia Lactate Dehydrogenase Total Creatine Kinase CK-MB (CK-2) 17.8 H CK-MB (CK-2) Rel Index 18.1 H Troponin T 0.798 H* C-Reactive Protein Total Protein 5.7 L Albumin 2.7 L Prealbumin Triglycerides 173 H HDL Cholesterol 36 L Arterial Blood Glucose Arterial Blood Ionized Calcium Acetaminophen 03/10/21 03/10/21 03/10/21 05:35 11:43 18:17 WBC RBC Hgb Hct MCV RDW Plt Count Lymph % (Auto) [place] % (Auto) Lymph # (Auto) [place] # (Auto) Seg Neutrophils % Seg Neuts % (Manual) Lymphocytes % (Manual) Seg Neutrophils # Seg Neutrophils # Man Lymphocytes # (Manual) APTT D-Dimer ABG pH POC ABG pO2 ABG pO2 ABG HCO3 ABG O2 Saturation ABG Base Excess ABG Hemoglobin ABG Oxyhemoglobin ABG Sodium ABG Chloride ABG Glucose Carboxyhemoglobin Sodium Potassium Chloride Carbon Dioxide BUN Glucose POC Glucose 210 H 221 H 120 H Lactic Acid Calcium Phosphorus Magnesium Ferritin AST Ammonia Lactate Dehydrogenase Total Creatine Kinase CK-MB (CK-2) CK-MB (CK-2) Rel Index Troponin T C-Reactive Protein Total Protein Albumin Prealbumin Triglycerides HDL Cholesterol Arterial Blood Glucose Arterial Blood Ionized Calcium Acetaminophen 03/10/21 03/11/21 03/11/21 18:40 00:44 08:00 WBC RBC Hgb Hct MCV RDW Plt Count Lymph % (Auto) [place] % (Auto) Lymph # (Auto) [place] # (Auto) Seg Neutrophils % Seg Neuts % (Manual) Lymphocytes % (Manual) Seg Neutrophils # Seg Neutrophils # Man Lymphocytes # (Manual) APTT D-Dimer ABG pH POC ABG pO2 ABG pO2 ABG HCO3 ABG O2 Saturation ABG Base Excess ABG Hemoglobin ABG Oxyhemoglobin ABG Sodium ABG Chloride ABG Glucose Carboxyhemoglobin Sodium Potassium Chloride Carbon Dioxide BUN Glucose POC Glucose Lactic Acid Calcium Phosphorus Magnesium Ferritin AST Ammonia Lactate Dehydrogenase Total Creatine Kinase CK-MB (CK-2) CK-MB (CK-2) Rel Index Troponin T 0.477 H* D 0.430 H* 0.363 H* C-Reactive Protein Total Protein Albumin Prealbumin Triglycerides HDL Cholesterol Arterial Blood Glucose Arterial Blood Ionized Calcium Acetaminophen 03/11/21 03/11/21 03/11/21 08:00 08:00 11:26 WBC 14.7 H RBC 3.62 L Hgb 11.3 L Hct 34.4 L MCV 95 H RDW Plt Count Lymph % (Auto) [place] % (Auto) Lymph # (Auto) [place] # (Auto) Seg Neutrophils % Seg Neuts % (Manual) Lymphocytes % (Manual) Seg Neutrophils # Seg Neutrophils # Man Lymphocytes # (Manual) APTT D-Dimer ABG pH POC ABG pO2 ABG pO2 ABG HCO3 ABG O2 Saturation ABG Base Excess ABG Hemoglobin ABG Oxyhemoglobin ABG Sodium ABG Chloride ABG Glucose Carboxyhemoglobin Sodium Potassium Chloride Carbon Dioxide BUN 34 H Glucose 167 H POC Glucose 157 H Lactic Acid Calcium Phosphorus 2.40 L Magnesium 2.40 H Ferritin AST Ammonia Lactate Dehydrogenase Total Creatine Kinase CK-MB (CK-2) CK-MB (CK-2) Rel Index Troponin T C-Reactive Protein Total Protein 6.1 L Albumin 2.7 L Prealbumin Triglycerides HDL Cholesterol Arterial Blood Glucose Arterial Blood Ionized Calcium Acetaminophen 03/11/21 03/11/21 03/12/21 17:31 21:50 03:05 WBC RBC Hgb 10.7 L Hct 33.6 L MCV RDW Plt Count Lymph % (Auto) [place] % (Auto) Lymph # (Auto) [place] # (Auto) Seg Neutrophils % Seg Neuts % (Manual) Lymphocytes % (Manual) Seg Neutrophils # Seg Neutrophils # Man Lymphocytes # (Manual) APTT D-Dimer ABG pH POC ABG pO2 ABG pO2 ABG HCO3 ABG O2 Saturation ABG Base Excess ABG Hemoglobin ABG Oxyhemoglobin ABG Sodium ABG Chloride ABG Glucose Carboxyhemoglobin Sodium Potassium Chloride Carbon Dioxide BUN Glucose POC Glucose 154 H 139 H Lactic Acid Calcium Phosphorus Magnesium Ferritin AST Ammonia Lactate Dehydrogenase Total Creatine Kinase CK-MB (CK-2) CK-MB (CK-2) Rel Index Troponin T C-Reactive Protein Total Protein Albumin Prealbumin Triglycerides HDL Cholesterol Arterial Blood Glucose Arterial Blood Ionized Calcium Acetaminophen 03/12/21 03/12/21 03/12/21 04:40 04:40 06:03 WBC 11.6 H RBC 3.28 L Hgb 10.3 L Hct 31.3 L MCV 96 H RDW Plt Count Lymph % (Auto) [place] % (Auto) Lymph # (Auto) [place] # (Auto) Seg Neutrophils % Seg Neuts % (Manual) 92.0 H Lymphocytes % (Manual) 3.0 L Seg Neutrophils # Seg Neutrophils # Man 10.7 H Lymphocytes # (Manual) 0.3 L APTT D-Dimer ABG pH POC ABG pO2 ABG pO2 ABG HCO3 ABG O2 Saturation ABG Base Excess ABG Hemoglobin ABG Oxyhemoglobin ABG Sodium ABG Chloride ABG Glucose Carboxyhemoglobin Sodium Potassium Chloride 108.7 H Carbon Dioxide BUN 28 H Glucose 137 H POC Glucose 137 H Lactic Acid Calcium 8.2 L Phosphorus Magnesium Ferritin AST Ammonia Lactate Dehydrogenase Total Creatine Kinase CK-MB (CK-2) CK-MB (CK-2) Rel Index Troponin T 0.261 H* D C-Reactive Protein Total Protein Albumin Prealbumin Triglycerides HDL Cholesterol Arterial Blood Glucose Arterial Blood Ionized Calcium Acetaminophen 03/12/21 03/12/21 03/13/21 14:17 17:28 04:09 WBC RBC Hgb 9.1 L Hct 27.7 L MCV RDW Plt Count Lymph % (Auto) [place] % (Auto) Lymph # (Auto) [place] # (Auto) Seg Neutrophils % Seg Neuts % (Manual) Lymphocytes % (Manual) Seg Neutrophils # Seg Neutrophils # Man Lymphocytes # (Manual) APTT D-Dimer ABG pH POC ABG pO2 ABG pO2 ABG HCO3 ABG O2 Saturation ABG Base Excess ABG Hemoglobin ABG Oxyhemoglobin ABG Sodium ABG Chloride ABG Glucose Carboxyhemoglobin Sodium Potassium Chloride Carbon Dioxide BUN Glucose POC Glucose 165 H 111 H Lactic Acid Calcium Phosphorus Magnesium Ferritin AST Ammonia Lactate Dehydrogenase Total Creatine Kinase CK-MB (CK-2) CK-MB (CK-2) Rel Index Troponin T C-Reactive Protein Total Protein Albumin Prealbumin Triglycerides HDL Cholesterol Arterial Blood Glucose Arterial Blood Ionized Calcium Acetaminophen 03/13/21 05:04 WBC RBC Hgb Hct MCV RDW Plt Count Lymph % (Auto) [place] % (Auto) Lymph # (Auto) [place] # (Auto) Seg Neutrophils % Seg Neuts % (Manual) Lymphocytes % (Manual) Seg Neutrophils # Seg Neutrophils # Man Lymphocytes # (Manual) APTT D-Dimer ABG pH POC ABG pO2 ABG pO2 ABG HCO3 ABG O2 Saturation ABG Base Excess ABG Hemoglobin ABG Oxyhemoglobin ABG Sodium ABG Chloride ABG Glucose Carboxyhemoglobin Sodium Potassium Chloride Carbon Dioxide BUN Glucose POC Glucose 113 H Lactic Acid Calcium Phosphorus Magnesium Ferritin AST Ammonia Lactate Dehydrogenase Total Creatine Kinase CK-MB (CK-2) CK-MB (CK-2) Rel Index Troponin T C-Reactive Protein Total Protein Albumin Prealbumin Triglycerides HDL Cholesterol Arterial Blood Glucose Arterial Blood Ionized Calcium Acetaminophen
[2021-03-13] MEDS ORDERED: methylPREDNISolone Sod Succinate 125 MG/2 ML INJ IV SCH (09:53)
[2021-03-13] MEDS: LORazepam 2 MG/ML VIAL IV PRN (10:35)
--- NOTE | 2021-03-13 11:04 | Progress Note ---
Assessment and Plan Cultures: Blood culture pending Covid PCR: Negative A/P: 65-year-old man unknown past medical history as a PUI #Community-acquired pneumonia. Covid testing negative. Elevated procalcitonin, potential bacterial pneumonia. #Acute hypoxic respiratory failure: Currently on 2L NC #CAD: s/p cardiac catheterization Recs: -Continue cefepime to complete 5 days given elevated procalcitonin. -Anticoagulation per hospital protocol. -Patient much improved from infectious disease subjective Thank you for the consult, we will sign off. Please contact if any further questions. Esther Benedict MD [facility] ([facility]) O: [phone] F: [phone] Subjective Date of service: 03/13/21 Interval history: Afebrile, white count slightly elevated. Now on 2 L nasal cannula. Objective - Exam Narrative Exam: Physical exam deferred to reduce risk of transmission of COVID-19. Please refer to primary team's note. - Constitutional Vitals: Vital Signs Temp Pulse Resp BP Pulse Ox 97.9 F 80 23 86/59 98 03/13/21 08:00 03/13/21 10:31 03/13/21 10:31 03/13/21 10:31 03/13/21 09:31 Temperature -Last 24 Hours Temperature 97.9 F Temperature 97.8 F Temperature 97.6 F Temperature 98.1 F Temperature 98.6 F - Labs CBC & Chem 7: 03/13/21 04:09 03/12/21 04:40 Labs: Abnormal lab results 03/12/21 03/12/21 03/13/21 Range/Units 14:17 17:28 04:09 Hgb 9.1 L (11.8-15.2) gm/dl Hct 27.7 L (35.5-45.6) % POC Glucose 165 H 111 H (70-105) mg/dL 03/13/21 Range/Units 05:04 Hgb (11.8-15.2) gm/dl Hct (35.5-45.6) % POC Glucose 113 H (70-105) mg/dL
[2021-03-13] MEDS: HALOPERIDOL LACTATE 5 MG/1 ML INJ IV PRN (11:28)
[2021-03-13] MEDS ORDERED: MIDAZOLAM 2 MG/2 ML INJ IV ONE (11:30)
[2021-03-13] MEDS ORDERED: MIDAZOLAM 2 MG/2 ML INJ ONE (11:30)
--- NOTE | 2021-03-13 11:50 | Procedure Note ---
Date of procedure: 03/13/21 Pre-op diagnosis: Hypotension Post-op diagnosis: same Procedure: Emergent RIGHT IJ placement patient pulled out the first central line that I placed so another was needed given patient developing hypertension and need for pressors. Right IJ visualized with ultrasound and cannulated with 7 [place] island[place] triple lumen catheter using seldinger technique. Line placed and biopatch applied sutured in and ressed by nursing. Awaiting CXR. Anesthesia: local Surgeon: USMAN JAY Estimated blood loss: none Pathology: none Condition: critical Disposition: ICU
[2021-03-13] MEDS ORDERED: SODIUM CHLORIDE 0.9% 500 ML 500 ML ONE (11:54)
[2021-03-13] MEDS ORDERED: SODIUM CHLORIDE 0.9% 500 ML 500 ML IV SCH (12:00)
[2021-03-13] MEDS: NORepinephrine/NS 4 MG-250 ML 4 MG/250 ML BAG IV SCH ×4 (13:15→19:48)
--- NOTE | 2021-03-13 13:21 | XRay Report ---
CHEST 1 VIEW INDICATION: CENTRAL LINE PLACEMENT. COMPARISON: 3 days prior FINDINGS: Support devices: Right IJ catheter projects over the SVC, similar to the prior. Previously seen tubes have been removed. Heart: Stable. Lungs/Pleura: Retrocardiac opacity which may be atelectatic is again noted. Left pleural effusion is smaller. There is mild right basilar airspace disease. No pneumothorax. IMPRESSION: 1. Right IJ catheter projects in expected position. No pneumothorax. Signer Name: Chadd Garner MD Signed: 03/13/2021 1:17 PM Workstation Name: [email or web address]
[2021-03-13] MEDS: PANTOPRAZOLE 40 MG INJ IV SCH (13:49)
[2021-03-13] MEDS: methylPREDNISolone Sod Succinate 40 MG/1 ML INJ IV SCH ×2 (13:50→22:00)
[2021-03-13] MEDS: LISINOPRIL 5 MG TAB PO SCH (13:51)
[2021-03-13 14:42] LABS: Hemoglobin 6.7 gm/dl (11.8-15.2)
[2021-03-13] MEDS ORDERED: SODIUM CHLORIDE 0.9% 500 ML 500 ML IV NR (14:46)
[2021-03-13 14:48] LABS: Hematocrit 19.7 % (35.5-45.6)
--- NOTE | 2021-03-13 14:52 | Progress Note ---
Assessment and Plan 65-year-old male brought to hospital by EMS for altered mental status and respiratory failure. On EMS arrival patient had a temperature 102.3 and Patient was also severely hypoxic and required nit-[id number]-nuzz ventilation mask ventilation. EMS also felt the patient had diminished breath sounds in the left side and there was a concern for pneumothorax on the left side. EMS performed a decompression of the left hemothorax but Upon arrival to the emergency room EMS placed the chest tube/catheter became dislodged. Stat chest x-ray showed no obvious left-sided pneumothorax. Given altered mental status and respiratory failure with history of hypoxia patient was intubated by the ED physician. Code sepsis was called and the patient was treated empirically with steroids and duo nebs and ceftriaxone and azithromycin, admitted to ICU for further further stabilization and Mx. He is neg for COVID x2. His hospital stay got complicated with STEMI and V. tach cardiac arrest. S/p cardiac cath with PCI to mid LAD by cardiology. Patient remains in the ICU with altered mental status, status post STEMI with PCI, status post V. tach cardiac arrest and now developed right foot ischemia following cardiac cath.. A/P: -s/p Vtech cardiac arrest on 03/10 Likely due to STEMI s/p ACLS with shock with spontaneous return of circulation Placed on amiodarone drip -Acute anteriorlateral stemi s/p coronary intervention to the mid LAD, and successful implantation of the 3.0 x 15 mm drug-eluting stent. Cardiology following, s/p Aggrastat drip Initiated on aspirin statin and Plavix No beta-avery as patient on Levophed drip --Right foot ischemia Noted after PCI placed on low intensity heparin drip following Aggrastat drip per cardiology recommendation Vascular consulted and recommended further work-up when patient clinically more stable Heparin drip now off for profound anemia --Possible GI bleed Had bloody bowel movement this morning, stop heparin drip, start on Protonix, transfuse PRBC Consult GI --Acute systolic CHF with EF 35 to 40% Continue aspirin statin and Plavix, likely acute ischemic cardiomyopathy from STEMI Patient currently on pressor support, continue to monitor volume status -- Acute respiratory failure with hypoxia Patient intubated in the emergency room patient, s/p extubation yesterday Patient now on venti mask 03/08 CTA Chest: BL LL PNA noted, small left apical pneumo appreciated. COVID pcr negative x2 Fentanyl, Versed for sedation Nebulizers: Albuterol /budesonide scheduled. IV Cefepime/ IV Vancomycin Solumedrol 60 q 8hr IV Chain Dyer following --Acute encephalopathy Secondary to sepsis, high fever and hypoxia Patient initiated on IV antibiotics and vent support now extubated Possible aspiration pneumonia which cannot be ruled out CT head showed no acute infarct but extensive atherosclerotic disease --Cerebral atherosclerosis Continue aspirin statin and Plavix -- Sepsis with shock Patient with criteria for sepsis with elevated lactic acid Continue IV fluid and pressor support as needed -- Bilateral pneumonia Patient initiated on IV cefepime and vancomycin ID consult requested Possible aspiration pneumonia also in the differential diagnosis -- Suspected COVID-19 virus infection, ruled out with 2 -ve test -- Hyponatremia Resolved with with gentle iv fluid -- Transaminitis Check acute hepatitis profile Possible secondary to underlying sepsis and hypotension -- Pneumothorax, left Small pneumothorax, s/p chest tube by EMS No intervention at this point per intencivist -- COPD with exacerbation chronic smoker nebulizer tx, supplemental O2 -- Hyperglycemia could be steroid induced Check A1c and coverage for now -- Anemia, acute on chronic Likely due to anticoagulation.-Transfuse 2 units of packed RBC -- DVT prophylaxis On heparin and GI prophylaxis The high probability of a clinically significant, sudden or life threatening deterioration of the system(s) required my full and direct attention, interven tion and personal management. The aggregate critical care time was [35] minutes. This time is in addition to time spent performing reported procedures but includes the following: [x] Data Review and interpretation [x] Patient assessment and monitoring of vital signs [x] Documentation [x] Medication orders and management Daily clinical course 03/09: Hypotensive in AM, Dr. Inman placed right IJ CVC. Patient intiated on pressors. UOP 200 cc overnight. 03/10: Planned for extubation today, repeat covid test pending. RN called for elevated trop - ordered serial trop, ekg, 2d echo, aspirin, statin and placed cardiology consult. will cont to follow clinically, pt remains on levophed 03/11: Patient had Vtech cardiac arrest last night. EKG showed acute STEMI. placed on amioderone and heparin drip. S/p PCI today with stent placement, discontinued heparin drip and started on Aggrastat. Patient now noted with cold bluish LE right>left. Discussed with Dr Armstrong and recommended to initiate low intensity heparin drip after sheath was removed. Placed order and discussed the plan with nurse and pharmacy. Ordered stat lower extremity arterial Doppler and consulted vascular surgeon. Patient remains on Ventimask with 10 to 15 L of O2. Patient also remains confused, continue supportive care and follow clinically. 03/12/21: LE remain clod and cyanotic, R> L. cont heparin drip, monitor h/h. vascular procedure when clinically more stable. discussed with daughter and updated with all clinical details. pt remains on pressor. critically ill. 03/13/21; Patient had bloody BM this am. stop heparin, start protonix IV BID. follow h/h, cont pressor, transfuse 2units PRBC. mental status declined - remains agitated and restrained. Requiring pressor support. Ordered for CT abdomen pelvis for profound anemia Subjective Date of service: 03/13/21 Interval history: Patient seen and examined Patient on supplemental O2 with nasal cannula Patient remains confused, had bloody bowel movement this morning Discussed with RN, vitals noted Objective - Exam Narrative Exam: General appearance: confused, ill appearing elderly gentleman. Eyes: non-icteric ENT: other (orally intubated and sedated.) Neck: supple, right IJ CVC inplace Respiratory: Bilateral: diminished breath sounds Cardiovascular: regular rate and rhythm Gastrointestinal: normoactive bowel sounds Extremities: no edema, cold and cyanotic foot rt>left Psych: unable to assess Neuro: moves extremities : Savage in place. - Constitutional Vitals: Vital Signs - 12hr 03/13/21 03/13/21 03/13/21 03:00 03:30 03:38 Temperature 97.8 F Pulse Rate 79 78 Respiratory 17 17 Rate Blood Pressure 125/56 121/56 O2 Sat by Pulse 94 93 Oximetry 03/13/21 03/13/21 03/13/21 03:45 04:00 04:01 Temperature Pulse Rate 92 H 88 Respiratory 20 19 Rate Blood Pressure 134/69 O2 Sat by Pulse 86 87 Oximetry 03/13/21 03/13/21 03/13/21 04:31 05:00 05:31 Temperature Pulse Rate 91 H 81 93 H Respiratory 18 15 17 Rate Blood Pressure 141/66 129/60 138/72 O2 Sat by Pulse 83 L 100 96 Oximetry 03/13/21 03/13/21 03/13/21 06:00 06:07 06:31 Temperature Pulse Rate 92 H 85 93 H Respiratory 17 15 Rate Blood Pressure 138/72 140/62 142/53 O2 Sat by Pulse 90 Oximetry 03/13/21 03/13/21 03/13/21 07:01 07:30 08:00 Temperature 97.9 F Pulse Rate 83 73 77 Respiratory 19 19 15 Rate Blood Pressure 146/50 137/47 135/119 O2 Sat by Pulse 100 Oximetry 03/13/21 03/13/21 03/13/21 08:30 09:00 09:25 Temperature Pulse Rate 75 76 Respiratory 21 22 Rate Blood Pressure 122/45 120/51 O2 Sat by Pulse 98 92 100 Oximetry 03/13/21 03/13/21 03/13/21 09:31 10:01 10:31 Temperature Pulse Rate 84 86 80 Respiratory 20 26 H 23 Rate Blood Pressure 124/34 137/58 86/59 O2 Sat by Pulse 98 Oximetry 03/13/21 03/13/21 03/13/21 11:01 11:31 12:00 Temperature 97 F L Pulse Rate 84 84 77 Respiratory 17 20 Rate Blood Pressure 43/11 45/22 O2 Sat by Pulse 100 93 99 Oximetry 03/13/21 03/13/21 03/13/21 12:01 12:30 13:01 Temperature Pulse Rate 77 80 79 Respiratory 20 20 17 Rate Blood Pressure 62/41 98/41 117/78 O2 Sat by Pulse 100 100 Oximetry 03/13/21 03/13/21 13:31 14:01 Temperature Pulse Rate 82 84 Respiratory 22 15 Rate Blood Pressure 76/22 59/34 O2 Sat by Pulse 87 Oximetry - Labs CBC & Chem 7: 03/14/21 04:00 03/14/21 04:00 Labs: Abnormal lab results 03/12/21 03/13/21 03/13/21 Range/Units 17:28 04:09 05:04 Hgb 9.1 L (11.8-15.2) gm/dl Hct 27.7 L (35.5-45.6) % POC Glucose 111 H 113 H (70-105) mg/dL 03/13/21 03/13/21 Range/Units 11:28 14:25 Hgb 6.7 L (11.8-15.2) gm/dl Hct 19.7 L* D (35.5-45.6) % POC Glucose 148 H (70-105) mg/dL HEART Score - HEART Score Age: > 65 Risk factors: No known risk factors Troponin: Troponin T 0.261 ng/mL (0.00-0.029) H* D 03/12/21 04:40 Troponin: < normal limit - Critical Actions Critical Actions: 0-3 pts:0.9-1.7%risk of adverse cardiac event.Candidate for discharge
[2021-03-13] MEDS ORDERED: LACTATED RINGERS 2,000 ML IV ONE ×2 (15:11→17:06)
[2021-03-13] MEDS ORDERED: SODIUM BICARB 8.4% 50 MEQ/50 ML SYRINGE IV ONE ×2 (17:58→20:57)
[2021-03-13] MEDS ORDERED: VASOPRESSIN 20 UNIT in SODIUM CHLORIDE 0.9% 100 ML IV SCH (18:00)
[2021-03-13] MEDS: SODIUM BICARBONATE 150 MEQ in DEXTROSE 5% IN WATER 1,000 ML IV SCH (19:12)
[2021-03-13] MEDS ORDERED: DEXTROSE 50% IN WATER (25GM) 50 ML SYRINGE IV ONE (19:30)
--- NOTE | 2021-03-13 21:28 | XRay Report ---
CHEST 1 VIEW 03/13/2021 7:56 PM INDICATION / CLINICAL INFORMATION: right lung changes per RT. COMPARISON: Earlier the same day. FINDINGS: SUPPORT DEVICES: Right IJ central venous catheter in satisfactory position. HEART / MEDIASTINUM: No significant abnormality. LUNGS / PLEURA: Right basilar pneumonia. Retrocardiac opacity on the left unchanged. ADDITIONAL FINDINGS: No significant additional findings. IMPRESSION: 1. Persistent right basilar pneumonia. 2. Persistent left retrocardiac opacity. Signer Name: Crow Espinoza MD Signed: 03/13/2021 9:23 PM Workstation Name: [id number]
[2021-03-14 00:03] LABS: Hematocrit 24.1 % (35.5-45.6); Hemoglobin 8.1 gm/dl (11.8-15.2)
[2021-03-14] MEDS: CEFEPIME/NS 2 GM/100 ML 2 GM/100 ML BAG IV SCH (02:04)
[2021-03-14] MEDS: PANTOPRAZOLE 40 MG INJ IV SCH ×2 (02:05→10:54)
[2021-03-14] MEDS: HEPARIN 5,000 UNIT/1 ML VIAL SUB-Q SCH ×3 (02:06→21:16)
[2021-03-14] MEDS: LORazepam 2 MG/ML VIAL IV PRN ×2 (02:43→22:29)
[2021-03-14] MEDS: SODIUM BICARBONATE 150 MEQ in DEXTROSE 5% IN WATER 1,000 ML IV SCH (03:45)
[2021-03-14] MEDS: METOPROLOL TARTRATE 25 MG TAB PO SCH ×4 (05:23→18:58)
[2021-03-14] MEDS: INSULIN LISPRO 100 UNIT/ML SUB-Q SCH ×4 (05:30→18:24)
[2021-03-14] MEDS: methylPREDNISolone Sod Succinate 40 MG/1 ML INJ IV SCH ×3 (05:31→21:15)
[2021-03-14 06:30] LABS: Hematocrit 23.1 % (35.5-45.6); Hemoglobin 7.8 gm/dl (11.8-15.2); Mean Corpuscular HGB Conc 34 % (32-34); Mean Corpuscular Volume 91 fl (84-94); Platelet Count 111 K/mm3 (140-440); Red Blood Count 2.55 M/mm3 (3.65-5.03)
[2021-03-14 06:55] LABS: Calcium 7.2 mg/dL (8.4-10.2)
--- NOTE | 2021-03-14 09:22 | Progress Note ---
Assessment and Plan - Patient Problems (1) Acute respiratory acidosis Current Visit: Yes Status: Acute (2) Acute encephalopathy Current Visit: Yes Status: Acute (3) Acute myocardial infarction Current Visit: Yes Status: Acute (4) Acute respiratory failure with hypoxia Current Visit: Yes Status: Acute (5) Bilateral pneumonia Current Visit: Yes Status: Acute (6) Dehydration Current Visit: Yes Status: Acute (7) Sepsis Current Visit: Yes Status: Acute (8) Anemia Current Visit: Yes Status: Chronic Qualifiers: Anemia type: unspecified type Qualified Code(s): D64.9 - Anemia, unspecified Subjective Interval history: events of last pm noted now on bipap 07/13 50% on pressors being weaned Objective Vital Signs - 12hr 03/13/21 03/13/21 03/13/21 21:30 21:35 21:37 Temperature 96.7 F L Pulse Rate 81 81 81 Pulse Rate [ Bilateral Dorsalis Pedis/ Posterior] Respiratory 18 25 H 25 H Rate Blood Pressure 147/128 134/79 O2 Sat by Pulse 99 100 100 Oximetry 03/13/21 03/13/21 03/13/21 21:58 22:00 22:07 Temperature 96.7 F L Pulse Rate 88 80 81 Pulse Rate [ Bilateral Dorsalis Pedis/ Posterior] Respiratory 21 19 25 H Rate Blood Pressure 154/129 167/48 O2 Sat by Pulse 98 99 100 Oximetry 03/13/21 03/13/21 03/13/21 22:31 22:37 23:01 Temperature 96.7 F L Pulse Rate 79 81 81 Pulse Rate [ Bilateral Dorsalis Pedis/ Posterior] Respiratory 15 25 H 18 Rate Blood Pressure 144/79 144/79 167/48 O2 Sat by Pulse 98 100 97 Oximetry 03/13/21 03/13/21 03/13/21 23:25 23:31 23:36 Temperature 96.7 F L Pulse Rate 81 82 Pulse Rate [ Bilateral Dorsalis Pedis/ Posterior] Respiratory 25 H 18 Rate Blood Pressure 78/52 O2 Sat by Pulse 100 99 Oximetry 03/13/21 03/14/21 03/14/21 23:45 00:00 00:01 Temperature Pulse Rate 89 81 82 Pulse Rate [ Bilateral Dorsalis Pedis/ Posterior] Respiratory 20 16 Rate Blood Pressure 141/72 134/79 137/39 O2 Sat by Pulse 100 100 Oximetry 03/14/21 03/14/21 03/14/21 00:31 01:00 01:01 Temperature 97.2 F L Pulse Rate 81 77 Pulse Rate [ Bilateral Dorsalis Pedis/ Posterior] Respiratory 25 H 18 Rate Blood Pressure 161/50 142/37 O2 Sat by Pulse 100 100 Oximetry 03/14/21 03/14/21 03/14/21 01:06 01:30 01:35 Temperature Pulse Rate 86 80 Pulse Rate [ Bilateral Dorsalis Pedis/ Posterior] Respiratory 17 15 25 H Rate Blood Pressure 142/37 132/54 O2 Sat by Pulse 100 100 100 Oximetry 03/14/21 03/14/21 03/14/21 02:00 02:35 02:50 Temperature Pulse Rate 80 80 Pulse Rate [ Bilateral Dorsalis Pedis/ Posterior] Respiratory 27 H 25 H Rate Blood Pressure 123/43 122/35 O2 Sat by Pulse 100 100 100 Oximetry 03/14/21 03/14/21 03/14/21 03:00 03:29 03:30 Temperature 97.5 F L Pulse Rate 80 76 Pulse Rate [ Bilateral Dorsalis Pedis/ Posterior] Respiratory 20 21 Rate Blood Pressure 85/42 76/43 O2 Sat by Pulse Oximetry 03/14/21 03/14/21 03/14/21 04:00 04:01 04:30 Temperature Pulse Rate 78 80 84 Pulse Rate [ Bilateral Dorsalis Pedis/ Posterior] Respiratory 25 H 17 22 Rate Blood Pressure 48/19 107/63 O2 Sat by Pulse 100 Oximetry 03/14/21 03/14/21 03/14/21 05:01 05:13 05:23 Temperature Pulse Rate 98 H 94 H 84 Pulse Rate [ Bilateral Dorsalis Pedis/ Posterior] Respiratory 24 20 Rate Blood Pressure 107/63 112/62 O2 Sat by Pulse 89 99 Oximetry 03/14/21 03/14/21 03/14/21 05:30 06:00 06:31 Temperature Pulse Rate 75 78 75 Pulse Rate [ Bilateral Dorsalis Pedis/ Posterior] Respiratory 21 22 19 Rate Blood Pressure 91/43 120/48 80/46 O2 Sat by Pulse 100 Oximetry 03/14/21 03/14/21 03/14/21 07:01 07:06 07:31 Temperature Pulse Rate 85 74 Pulse Rate [ 87 Bilateral Dorsalis Pedis/ Posterior] Respiratory 20 20 15 Rate Blood Pressure 80/46 113/90 123/49 O2 Sat by Pulse 98 Oximetry 03/14/21 03/14/21 03/14/21 08:00 08:31 08:49 Temperature 97.7 F Pulse Rate 69 82 Pulse Rate [ Bilateral Dorsalis Pedis/ Posterior] Respiratory 14 16 Rate Blood Pressure 117/48 127/49 O2 Sat by Pulse Oximetry 03/14/21 03/14/21 03/14/21 08:57 09:01 09:13 Temperature Pulse Rate 99 H 87 Pulse Rate [ Bilateral Dorsalis Pedis/ Posterior] Respiratory 24 15 18 Rate Blood Pressure 117/48 127/49 O2 Sat by Pulse 100 98 Oximetry Constitutional: lethargic, other (but arousable) Eyes: non-icteric ENT: other (orally intubated and sedated.) Neck: supple Effort: normal Ascultation: Bilateral: diminished breath sounds Cardiovascular: regular rate and rhythm Gastrointestinal: normoactive bowel sounds, soft Extremities: no edema, pink and warm Neurologic: unable to assess CBC and BMP: 03/14/21 04:00 03/14/21 04:00 ABG, PT/INR, D-dimer: ABG ABG pH 7.094 (7.320-7.450) L 03/13/21 20:06 POC ABG pCO2 64.0 mmHg (32.0-48.0) H 03/13/21 20:06 ABG pCO2 43.0 mm Hg 03/08/21 15:12 POC ABG pO2 68.2 mmHg (83-108) L 03/13/21 20:06 ABG pO2 381.9 mm Hg (80.0-90.0) H 03/08/21 15:12 POC ABG HCO3 19.2 03/13/21 20:06 ABG O2 Saturation 85.2 (0-100) 03/13/21 20:06 PT/INR, D-dimer PT 14.6 Sec. (12.2-14.9) 03/11/21 21:50 INR 1.09 (0.87-1.13) 03/11/21 21:50 D-Dimer 832.06 ng/mlDDU (0-234) H 03/08/21 15:49 Abnormal lab findings: Abnormal Labs 03/08/21 03/08/21 03/08/21 15:12 15:49 15:49 WBC RBC Hgb Hct MCV 95 H RDW 12.8 L Plt Count Lymph % (Auto) 5.1 L Carter % (Auto) 8.6 H Lymph # (Auto) 0.4 L Carter # (Auto) Seg Neutrophils % 86.1 H Seg Neuts % (Manual) Lymphocytes % (Manual) Seg Neutrophils # Seg Neutrophils # Man Lymphocytes # (Manual) APTT 37.1 H D-Dimer 832.06 H ABG pH 7.478 H POC ABG pCO2 POC ABG pO2 ABG pO2 381.9 H ABG HCO3 31.2 H ABG O2 Saturation 99.6 H ABG Base Excess 6.9 H ABG Hemoglobin 13.0 L ABG Oxyhemoglobin ABG Sodium ABG Potassium ABG Chloride ABG Glucose Carboxyhemoglobin Sodium Potassium Chloride Carbon Dioxide BUN Creatinine Glucose POC Glucose Lactic Acid Calcium Phosphorus Magnesium Ferritin AST Ammonia Lactate Dehydrogenase Total Creatine Kinase CK-MB (CK-2) CK-MB (CK-2) Rel Index Troponin T C-Reactive Protein Total Protein Albumin Prealbumin Triglycerides HDL Cholesterol Arterial Blood Glucose Arterial Blood Ionized Calcium Acetaminophen Crossmatch 03/08/21 03/08/21 03/08/21 15:49 15:49 15:49 WBC RBC Hgb Hct MCV RDW Plt Count Lymph % (Auto) Carter % (Auto) Lymph # (Auto) Carter # (Auto) Seg Neutrophils % Seg Neuts % (Manual) Lymphocytes % (Manual) Seg Neutrophils # Seg Neutrophils # Man Lymphocytes # (Manual) APTT D-Dimer ABG pH POC ABG pCO2 POC ABG pO2 ABG pO2 ABG HCO3 ABG O2 Saturation ABG Base Excess ABG Hemoglobin ABG Oxyhemoglobin ABG Sodium ABG Potassium ABG Chloride ABG Glucose Carboxyhemoglobin Sodium 134 L Potassium Chloride 89.7 L Carbon Dioxide 32 H BUN 47 H Creatinine Glucose 150 H POC Glucose Lactic Acid Calcium Phosphorus Magnesium Ferritin AST Ammonia 22.0 L Lactate Dehydrogenase Total Creatine Kinase 52 L CK-MB (CK-2) CK-MB (CK-2) Rel Index Troponin T C-Reactive Protein Total Protein Albumin 3.2 L Prealbumin Triglycerides HDL Cholesterol Arterial Blood Glucose Arterial Blood Ionized Calcium Acetaminophen Crossmatch 03/08/21 03/08/21 03/08/21 15:49 15:49 15:49 WBC RBC Hgb Hct MCV RDW Plt Count Lymph % (Auto) Carter % (Auto) Lymph # (Auto) Carter # (Auto) Seg Neutrophils % Seg Neuts % (Manual) Lymphocytes % (Manual) Seg Neutrophils # Seg Neutrophils # Man Lymphocytes # (Manual) APTT D-Dimer ABG pH POC ABG pCO2 POC ABG pO2 ABG pO2 ABG HCO3 ABG O2 Saturation ABG Base Excess ABG Hemoglobin ABG Oxyhemoglobin ABG Sodium ABG Potassium ABG Chloride ABG Glucose Carboxyhemoglobin Sodium Potassium Chloride Carbon Dioxide BUN Creatinine Glucose 150 H POC Glucose Lactic Acid 3.40 H* Calcium Phosphorus Magnesium Ferritin AST Ammonia Lactate Dehydrogenase 209 H Total Creatine Kinase CK-MB (CK-2) CK-MB (CK-2) Rel Index Troponin T C-Reactive Protein 24.00 H Total Protein Albumin Prealbumin Triglycerides HDL Cholesterol Arterial Blood Glucose Arterial Blood Ionized Calcium Acetaminophen 5.0 L Crossmatch 03/08/21 03/08/21 03/09/21 15:49 23:27 00:00 WBC RBC Hgb Hct MCV RDW Plt Count Lymph % (Auto) Carter % (Auto) Lymph # (Auto) Carter # (Auto) Seg Neutrophils % Seg Neuts % (Manual) Lymphocytes % (Manual) Seg Neutrophils # Seg Neutrophils # Man Lymphocytes # (Manual) APTT D-Dimer ABG pH POC ABG pCO2 POC ABG pO2 ABG pO2 ABG HCO3 ABG O2 Saturation ABG Base Excess ABG Hemoglobin ABG Oxyhemoglobin ABG Sodium ABG Potassium ABG Chloride ABG Glucose Carboxyhemoglobin Sodium Potassium Chloride Carbon Dioxide BUN Creatinine Glucose POC Glucose 185 H Lactic Acid Calcium Phosphorus Magnesium Ferritin 1373.0 H AST Ammonia Lactate Dehydrogenase Total Creatine Kinase CK-MB (CK-2) CK-MB (CK-2) Rel Index Troponin T C-Reactive Protein Total Protein Albumin Prealbumin 0.058 L Triglycerides HDL Cholesterol Arterial Blood Glucose Arterial Blood Ionized Calcium Acetaminophen Crossmatch 03/09/21 03/09/21 03/09/21 05:11 06:18 06:18 WBC RBC 3.50 L Hgb 10.8 L Hct 32.8 L D MCV RDW 13.1 L Plt Count 111 L Lymph % (Auto) 9.9 L Carter % (Auto) 9.2 H Lymph # (Auto) 0.5 L Carter # (Auto) Seg Neutrophils % 80.4 H Seg Neuts % (Manual) Lymphocytes % (Manual) Seg Neutrophils # Seg Neutrophils # Man Lymphocytes # (Manual) APTT D-Dimer ABG pH POC ABG pCO2 POC ABG pO2 ABG pO2 ABG HCO3 ABG O2 Saturation ABG Base Excess ABG Hemoglobin ABG Oxyhemoglobin ABG Sodium ABG Potassium ABG Chloride ABG Glucose Carboxyhemoglobin Sodium 135 L Potassium 5.3 H Chloride Carbon Dioxide BUN 46 H Creatinine Glucose 178 H POC Glucose 183 H Lactic Acid Calcium 8.2 L Phosphorus Magnesium Ferritin AST Ammonia Lactate Dehydrogenase Total Creatine Kinase CK-MB (CK-2) CK-MB (CK-2) Rel Index Troponin T C-Reactive Protein Total Protein 6.1 L Albumin 2.4 L Prealbumin Triglycerides HDL Cholesterol Arterial Blood Glucose Arterial Blood Ionized Calcium Acetaminophen Crossmatch 03/09/21 03/09/21 03/09/21 07:40 11:39 18:09 WBC RBC Hgb Hct MCV RDW Plt Count Lymph % (Auto) Carter % (Auto) Lymph # (Auto) Carter # (Auto) Seg Neutrophils % Seg Neuts % (Manual) Lymphocytes % (Manual) Seg Neutrophils # Seg Neutrophils # Man Lymphocytes # (Manual) APTT D-Dimer ABG pH 7.485 H POC ABG pCO2 POC ABG pO2 179.1 H ABG pO2 ABG HCO3 ABG O2 Saturation ABG Base Excess ABG Hemoglobin 10.8 L ABG Oxyhemoglobin 99.1 H ABG Sodium 133.2 L ABG Potassium ABG Chloride ABG Glucose 175 H Carboxyhemoglobin 0 L Sodium Potassium Chloride Carbon Dioxide BUN Creatinine Glucose POC Glucose 165 H 167 H Lactic Acid Calcium Phosphorus Magnesium Ferritin AST Ammonia Lactate Dehydrogenase Total Creatine Kinase CK-MB (CK-2) CK-MB (CK-2) Rel Index Troponin T C-Reactive Protein Total Protein Albumin Prealbumin Triglycerides HDL Cholesterol Arterial Blood Glucose 175 H Arterial Blood Ionized Calcium 4.3 L Acetaminophen Crossmatch 03/09/21 03/10/21 03/10/21 23:53 02:59 05:14 WBC 12.0 H RBC Hgb 11.7 L Hct MCV 95 H RDW Plt Count Lymph % (Auto) 2.6 L Carter % (Auto) 7.5 H Lymph # (Auto) 0.3 L Carter # (Auto) 0.9 H Seg Neutrophils % 89.8 H Seg Neuts % (Manual) Lymphocytes % (Manual) Seg Neutrophils # 10.8 H Seg Neutrophils # Man Lymphocytes # (Manual) APTT D-Dimer ABG pH POC ABG pCO2 POC ABG pO2 ABG pO2 ABG HCO3 ABG O2 Saturation ABG Base Excess ABG Hemoglobin 11.9 L ABG Oxyhemoglobin ABG Sodium ABG Potassium ABG Chloride 108.0 H ABG Glucose 232 H Carboxyhemoglobin 0.3 L Sodium Potassium Chloride Carbon Dioxide BUN Creatinine Glucose POC Glucose 210 H Lactic Acid Calcium Phosphorus Magnesium Ferritin AST Ammonia Lactate Dehydrogenase Total Creatine Kinase CK-MB (CK-2) CK-MB (CK-2) Rel Index Troponin T C-Reactive Protein Total Protein Albumin Prealbumin Triglycerides HDL Cholesterol Arterial Blood Glucose 232 H Arterial Blood Ionized Calcium 4.4 L Acetaminophen Crossmatch 03/10/21 03/10/21 03/10/21 05:14 05:14 05:14 WBC RBC Hgb Hct MCV RDW Plt Count Lymph % (Auto) Carter % (Auto) Lymph # (Auto) Carter # (Auto) Seg Neutrophils % Seg Neuts % (Manual) Lymphocytes % (Manual) Seg Neutrophils # Seg Neutrophils # Man Lymphocytes # (Manual) APTT D-Dimer ABG pH POC ABG pCO2 POC ABG pO2 ABG pO2 ABG HCO3 ABG O2 Saturation ABG Base Excess ABG Hemoglobin ABG Oxyhemoglobin ABG Sodium ABG Potassium ABG Chloride ABG Glucose Carboxyhemoglobin Sodium Potassium Chloride 107.2 H Carbon Dioxide BUN 48 H Creatinine Glucose 218 H POC Glucose Lactic Acid Calcium 7.9 L Phosphorus Magnesium Ferritin AST 41 H Ammonia Lactate Dehydrogenase Total Creatine Kinase CK-MB (CK-2) 17.8 H CK-MB (CK-2) Rel Index 18.1 H Troponin T 0.798 H* C-Reactive Protein Total Protein 5.7 L Albumin 2.7 L Prealbumin Triglycerides 173 H HDL Cholesterol 36 L Arterial Blood Glucose Arterial Blood Ionized Calcium Acetaminophen Crossmatch 03/10/21 03/10/21 03/10/21 05:35 11:43 18:17 WBC RBC Hgb Hct MCV RDW Plt Count Lymph % (Auto) Carter % (Auto) Lymph # (Auto) Carter # (Auto) Seg Neutrophils % Seg Neuts % (Manual) Lymphocytes % (Manual) Seg Neutrophils # Seg Neutrophils # Man Lymphocytes # (Manual) APTT D-Dimer ABG pH POC ABG pCO2 POC ABG pO2 ABG pO2 ABG HCO3 ABG O2 Saturation ABG Base Excess ABG Hemoglobin ABG Oxyhemoglobin ABG Sodium ABG Potassium ABG Chloride ABG Glucose Carboxyhemoglobin Sodium Potassium Chloride Carbon Dioxide BUN Creatinine Glucose POC Glucose 210 H 221 H 120 H Lactic Acid Calcium Phosphorus Magnesium Ferritin AST Ammonia Lactate Dehydrogenase Total Creatine Kinase CK-MB (CK-2) CK-MB (CK-2) Rel Index Troponin T C-Reactive Protein Total Protein Albumin Prealbumin Triglycerides HDL Cholesterol Arterial Blood Glucose Arterial Blood Ionized Calcium Acetaminophen Crossmatch 03/10/21 03/11/21 03/11/21 18:40 00:44 08:00 WBC RBC Hgb Hct MCV RDW Plt Count Lymph % (Auto) Carter % (Auto) Lymph # (Auto) Carter # (Auto) Seg Neutrophils % Seg Neuts % (Manual) Lymphocytes % (Manual) Seg Neutrophils # Seg Neutrophils # Man Lymphocytes # (Manual) APTT D-Dimer ABG pH POC ABG pCO2 POC ABG pO2 ABG pO2 ABG HCO3 ABG O2 Saturation ABG Base Excess ABG Hemoglobin ABG Oxyhemoglobin ABG Sodium ABG Potassium ABG Chloride ABG Glucose Carboxyhemoglobin Sodium Potassium Chloride Carbon Dioxide BUN Creatinine Glucose POC Glucose Lactic Acid Calcium Phosphorus Magnesium Ferritin AST Ammonia Lactate Dehydrogenase Total Creatine Kinase CK-MB (CK-2) CK-MB (CK-2) Rel Index Troponin T 0.477 H* D 0.430 H* 0.363 H* C-Reactive Protein Total Protein Albumin Prealbumin Triglycerides HDL Cholesterol Arterial Blood Glucose Arterial Blood Ionized Calcium Acetaminophen Crossmatch 03/11/21 03/11/21 03/11/21 08:00 08:00 11:26 WBC 14.7 H RBC 3.62 L Hgb 11.3 L Hct 34.4 L MCV 95 H RDW Plt Count Lymph % (Auto) Carter % (Auto) Lymph # (Auto) Carter # (Auto) Seg Neutrophils % Seg Neuts % (Manual) Lymphocytes % (Manual) Seg Neutrophils # Seg Neutrophils # Man Lymphocytes # (Manual) APTT D-Dimer ABG pH POC ABG pCO2 POC ABG pO2 ABG pO2 ABG HCO3 ABG O2 Saturation ABG Base Excess ABG Hemoglobin ABG Oxyhemoglobin ABG Sodium ABG Potassium ABG Chloride ABG Glucose Carboxyhemoglobin Sodium Potassium Chloride Carbon Dioxide BUN 34 H Creatinine Glucose 167 H POC Glucose 157 H Lactic Acid Calcium Phosphorus 2.40 L Magnesium 2.40 H Ferritin AST Ammonia Lactate Dehydrogenase Total Creatine Kinase CK-MB (CK-2) CK-MB (CK-2) Rel Index Troponin T C-Reactive Protein Total Protein 6.1 L Albumin 2.7 L Prealbumin Triglycerides HDL Cholesterol Arterial Blood Glucose Arterial Blood Ionized Calcium Acetaminophen Crossmatch 03/11/21 03/11/21 03/12/21 17:31 21:50 03:05 WBC RBC Hgb 10.7 L Hct 33.6 L MCV RDW Plt Count Lymph % (Auto) Carter % (Auto) Lymph # (Auto) Carter # (Auto) Seg Neutrophils % Seg Neuts % (Manual) Lymphocytes % (Manual) Seg Neutrophils # Seg Neutrophils # Man Lymphocytes # (Manual) APTT D-Dimer ABG pH POC ABG pCO2 POC ABG pO2 ABG pO2 ABG HCO3 ABG O2 Saturation ABG Base Excess ABG Hemoglobin ABG Oxyhemoglobin ABG Sodium ABG Potassium ABG Chloride ABG Glucose Carboxyhemoglobin Sodium Potassium Chloride Carbon Dioxide BUN Creatinine Glucose POC Glucose 154 H 139 H Lactic Acid Calcium Phosphorus Magnesium Ferritin AST Ammonia Lactate Dehydrogenase Total Creatine Kinase CK-MB (CK-2) CK-MB (CK-2) Rel Index Troponin T C-Reactive Protein Total Protein Albumin Prealbumin Triglycerides HDL Cholesterol Arterial Blood Glucose Arterial Blood Ionized Calcium Acetaminophen Crossmatch 03/12/21 03/12/21 03/12/21 04:40 04:40 06:03 WBC 11.6 H RBC 3.28 L Hgb 10.3 L Hct 31.3 L MCV 96 H RDW Plt Count Lymph % (Auto) Carter % (Auto) Lymph # (Auto) Carter # (Auto) Seg Neutrophils % Seg Neuts % (Manual) 92.0 H Lymphocytes % (Manual) 3.0 L Seg Neutrophils # Seg Neutrophils # Man 10.7 H Lymphocytes # (Manual) 0.3 L APTT D-Dimer ABG pH POC ABG pCO2 POC ABG pO2 ABG pO2 ABG HCO3 ABG O2 Saturation ABG Base Excess ABG Hemoglobin ABG Oxyhemoglobin ABG Sodium ABG Potassium ABG Chloride ABG Glucose Carboxyhemoglobin Sodium Potassium Chloride 108.7 H Carbon Dioxide BUN 28 H Creatinine Glucose 137 H POC Glucose 137 H Lactic Acid Calcium 8.2 L Phosphorus Magnesium Ferritin AST Ammonia Lactate Dehydrogenase Total Creatine Kinase CK-MB (CK-2) CK-MB (CK-2) Rel Index Troponin T 0.261 H* D C-Reactive Protein Total Protein Albumin Prealbumin Triglycerides HDL Cholesterol Arterial Blood Glucose Arterial Blood Ionized Calcium Acetaminophen Crossmatch 03/12/21 03/12/21 03/13/21 14:17 17:28 04:09 WBC RBC Hgb 9.1 L Hct 27.7 L MCV RDW Plt Count Lymph % (Auto) Carter % (Auto) Lymph # (Auto) Carter # (Auto) Seg Neutrophils % Seg Neuts % (Manual) Lymphocytes % (Manual) Seg Neutrophils # Seg Neutrophils # Man Lymphocytes # (Manual) APTT D-Dimer ABG pH POC ABG pCO2 POC ABG pO2 ABG pO2 ABG HCO3 ABG O2 Saturation ABG Base Excess ABG Hemoglobin ABG Oxyhemoglobin ABG Sodium ABG Potassium ABG Chloride ABG Glucose Carboxyhemoglobin Sodium Potassium Chloride Carbon Dioxide BUN Creatinine Glucose POC Glucose 165 H 111 H Lactic Acid Calcium Phosphorus Magnesium Ferritin AST Ammonia Lactate Dehydrogenase Total Creatine Kinase CK-MB (CK-2) CK-MB (CK-2) Rel Index Troponin T C-Reactive Protein Total Protein Albumin Prealbumin Triglycerides HDL Cholesterol Arterial Blood Glucose Arterial Blood Ionized Calcium Acetaminophen Crossmatch 03/13/21 03/13/21 03/13/21 05:04 11:28 14:25 WBC RBC Hgb 6.7 L Hct 19.7 L* D MCV RDW Plt Count Lymph % (Auto) Carter % (Auto) Lymph # (Auto) Carter # (Auto) Seg Neutrophils % Seg Neuts % (Manual) Lymphocytes % (Manual) Seg Neutrophils # Seg Neutrophils # Man Lymphocytes # (Manual) APTT D-Dimer ABG pH POC ABG pCO2 POC ABG pO2 ABG pO2 ABG HCO3 ABG O2 Saturation ABG Base Excess ABG Hemoglobin ABG Oxyhemoglobin ABG Sodium ABG Potassium ABG Chloride ABG Glucose Carboxyhemoglobin Sodium Potassium Chloride Carbon Dioxide BUN Creatinine Glucose POC Glucose 113 H 148 H Lactic Acid Calcium Phosphorus Magnesium Ferritin AST Ammonia Lactate Dehydrogenase Total Creatine Kinase CK-MB (CK-2) CK-MB (CK-2) Rel Index Troponin T C-Reactive Protein Total Protein Albumin Prealbumin Triglycerides HDL Cholesterol Arterial Blood Glucose Arterial Blood Ionized Calcium Acetaminophen Crossmatch 03/13/21 03/13/21 03/13/21 15:22 17:25 19:16 WBC RBC Hgb Hct MCV RDW Plt Count Lymph % (Auto) Carter % (Auto) Lymph # (Auto) Carter # (Auto) Seg Neutrophils % Seg Neuts % (Manual) Lymphocytes % (Manual) Seg Neutrophils # Seg Neutrophils # Man Lymphocytes # (Manual) APTT D-Dimer ABG pH 7.174 L POC ABG pCO2 POC ABG pO2 78.7 L ABG pO2 ABG HCO3 ABG O2 Saturation ABG Base Excess ABG Hemoglobin 5.5 L ABG Oxyhemoglobin 88.8 L ABG Sodium 135.1 L ABG Potassium 5.2 H ABG Chloride 109.0 H ABG Glucose 96 H Carboxyhemoglobin Sodium Potassium Chloride Carbon Dioxide BUN Creatinine Glucose POC Glucose 47 L Lactic Acid Calcium Phosphorus Magnesium Ferritin AST Ammonia Lactate Dehydrogenase Total Creatine Kinase CK-MB (CK-2) CK-MB (CK-2) Rel Index Troponin T C-Reactive Protein Total Protein Albumin Prealbumin Triglycerides HDL Cholesterol Arterial Blood Glucose 96 H Arterial Blood Ionized Calcium 4.4 L Acetaminophen Crossmatch See Detail 03/13/21 03/13/21 03/13/21 20:06 20:16 20:24 WBC RBC Hgb 8.1 L Hct 24.1 L MCV RDW Plt Count Lymph % (Auto) Carter % (Auto) Lymph # (Auto) Carter # (Auto) Seg Neutrophils % Seg Neuts % (Manual) Lymphocytes % (Manual) Seg Neutrophils # Seg Neutrophils # Man Lymphocytes # (Manual) APTT D-Dimer ABG pH 7.094 L POC ABG pCO2 64.0 H POC ABG pO2 68.2 L ABG pO2 ABG HCO3 ABG O2 Saturation ABG Base Excess ABG Hemoglobin 7.9 L ABG Oxyhemoglobin 84.6 L ABG Sodium ABG Potassium 4.9 H ABG Chloride ABG Glucose 220 H Carboxyhemoglobin Sodium Potassium Chloride Carbon Dioxide BUN Creatinine Glucose POC Glucose 188 H Lactic Acid Calcium Phosphorus Magnesium Ferritin AST Ammonia Lactate Dehydrogenase Total Creatine Kinase CK-MB (CK-2) CK-MB (CK-2) Rel Index Troponin T C-Reactive Protein Total Protein Albumin Prealbumin Triglycerides HDL Cholesterol Arterial Blood Glucose 220 H Arterial Blood Ionized Calcium 4.1 L Acetaminophen Crossmatch 03/13/21 03/14/21 03/14/21 23:17 04:00 04:00 WBC 17.9 H RBC 2.55 L Hgb 7.8 L Hct 23.1 L MCV RDW Plt Count 111 L Lymph % (Auto) Carter % (Auto) Lymph # (Auto) Carter # (Auto) Seg Neutrophils % Seg Neuts % (Manual) Lymphocytes % (Manual) Seg Neutrophils # Seg Neutrophils # Man Lymphocytes # (Manual) APTT D-Dimer ABG pH POC ABG pCO2 POC ABG pO2 ABG pO2 ABG HCO3 ABG O2 Saturation ABG Base Excess ABG Hemoglobin ABG Oxyhemoglobin ABG Sodium ABG Potassium ABG Chloride ABG Glucose Carboxyhemoglobin Sodium Potassium Chloride Carbon Dioxide 35 H BUN 48 H Creatinine 1.7 H D Glucose 258 H POC Glucose 244 H Lactic Acid Calcium 7.2 L Phosphorus Magnesium Ferritin AST Ammonia Lactate Dehydrogenase Total Creatine Kinase CK-MB (CK-2) CK-MB (CK-2) Rel Index Troponin T C-Reactive Protein Total Protein Albumin Prealbumin Triglycerides HDL Cholesterol Arterial Blood Glucose Arterial Blood Ionized Calcium Acetaminophen Crossmatch 03/14/21 05:15 WBC RBC Hgb Hct MCV RDW Plt Count Lymph % (Auto) Carter % (Auto) Lymph # (Auto) Carter # (Auto) Seg Neutrophils % Seg Neuts % (Manual) Lymphocytes % (Manual) Seg Neutrophils # Seg Neutrophils # Man Lymphocytes # (Manual) APTT D-Dimer ABG pH POC ABG pCO2 POC ABG pO2 ABG pO2 ABG HCO3 ABG O2 Saturation ABG Base Excess ABG Hemoglobin ABG Oxyhemoglobin ABG Sodium ABG Potassium ABG Chloride ABG Glucose Carboxyhemoglobin Sodium Potassium Chloride Carbon Dioxide BUN Creatinine Glucose POC Glucose 203 H Lactic Acid Calcium Phosphorus Magnesium Ferritin AST Ammonia Lactate Dehydrogenase Total Creatine Kinase CK-MB (CK-2) CK-MB (CK-2) Rel Index Troponin T C-Reactive Protein Total Protein Albumin Prealbumin Triglycerides HDL Cholesterol Arterial Blood Glucose Arterial Blood Ionized Calcium Acetaminophen Crossmatch
[2021-03-14] MEDS ORDERED: SPIRONOLACTONE 25 MG TAB PO SCH (10:00)
[2021-03-14 11:53] LABS: Total Cells Counted 100
[2021-03-14 11:54] LABS: Platelet Estimate Consistent w Auto; RBC Morphology Normal
--- NOTE | 2021-03-14 13:07 | Cat Scan Report ---
CT ABDOMEN AND PELVIS WITHOUT CONTRAST INDICATION / CLINICAL INFORMATION: Abdominal/pelvic pain. Possible bleeding. TECHNIQUE: Axial CT images were obtained through the abdomen and pelvis without IV contrast. All CT scans at this location are performed using CT dose reduction for ALARA by means of automated exposure control. COMPARISON: CT abdomen and pelvis 04/19/2019. FINDINGS: LOWER CHEST: Small basilar effusions with moderate dependent consolidation and mild patchy infiltrate . LIVER: Mild increased density diffusely. GALLBLADDER: No significant abnormality. BILE DUCTS: No significant abnormality. PANCREAS: No significant abnormality. SPLEEN: No significant abnormality. ADRENALS: No significant abnormality. RIGHT KIDNEY / URETER: No significant abnormality. LEFT KIDNEY / URETER: No significant abnormality. STOMACH / SMALL BOWEL: No significant abnormality. COLON: No significant abnormality. APPENDIX: Nonvisualized. PERITONEUM: Mild ascites. No free air. No fluid collection. LYMPH NODES: No significant adenopathy. VASCULAR STRUCTURES: Diffuse atherosclerotic disease. Infrarenal abdominal aortic aneurysm with a max imal diameter of 4.8 cm (previously 4.7 cm). URINARY BLADDER: Decompressed by Savage catheter. REPRODUCTIVE ORGANS: No significant abnormality. ADDITIONAL FINDINGS: Diffuse soft tissue anasarca. Hematoma involving the psoas muscle extending into the iliac is muscle. The largest discrete area of hematoma is anterior to the right iliac bone measu ring 4.1 x 7 cm. SKELETAL SYSTEM: No significant abnormality. IMPRESSION: 1. Moderate right iliopsoas hematoma. 2. Soft tissue anasarca with mild ascites. 3. Mild right effusion with bibasilar volume loss and patchy pneumonia. 4. 4.8 cm abdominal aortic aneurysm is minimally enlarged. Signer Name: Crow Espinoza MD Signed: 03/14/2021 1:03 PM Workstation Name: [id number]
[2021-03-14] MEDS: ASPIRIN 81 MG TAB CHEW PO SCH (13:13)
[2021-03-14] MEDS: LISINOPRIL 5 MG TAB PO SCH (13:13)
[2021-03-14] MEDS: AMIODARONE 200 MG TAB PO SCH (13:13)
[2021-03-14] MEDS: CLOPIDOGREL 75 MG TAB PO SCH (13:13)
--- NOTE | 2021-03-14 13:37 | Progress Note ---
Assessment and Plan 65-year-old male brought to hospital by EMS for altered mental status and respiratory failure. On EMS arrival patient had a temperature 102.3 and Patient was also severely hypoxic and required [id number] ventilation mask ventilation. EMS also felt the patient had diminished breath sounds in the left side and there was a concern for pneumothorax on the left side. EMS performed a decompression of the left hemothorax but Upon arrival to the emergency room EMS placed the chest tube/catheter became dislodged. Stat chest x-ray showed no obvious left-sided pneumothorax. Given altered mental status and respiratory failure with history of hypoxia patient was intubated by the ED physician. Code sepsis was called and the patient was treated empirically with steroids and duo nebs and ceftriaxone and azithromycin, admitted to ICU for further further stabilization and Mx. He is neg for COVID x2. His hospital stay got complicated with STEMI and V. tach cardiac arrest. S/p cardiac cath with PCI to mid LAD by cardiology. Patient remains in the ICU with altered mental status, status post STEMI with PCI, status post V. tach cardiac arrest and now developed right foot ischemia following cardiac cath.. A/P: -s/p Vtech cardiac arrest on 03/10 Likely due to STEMI s/p ACLS with shock with spontaneous return of circulation Placed on amiodarone -Acute anteriorlateral stemi s/p coronary intervention to the mid LAD, and successful implantation of the 3.0 x 15 mm drug-eluting stent. Cardiology following, s/p Aggrastat drip Initiated on aspirin statin and Plavix No beta-avery as patient on Levophed drip --Right foot ischemia Noted after PCI pt with cold clammy foot Rt>Lt placed on low intensity heparin drip following Aggrastat drip per cardiology recommendation Vascular consulted and recommended further work-up when patient clinically more stable Heparin drip now off for profound anemia --Possible GI bleed Had bloody bowel movement yesterday and this morning, stopped heparin drip, cont on Protonix, transfused PRBC Consulted GI, monitor h/h --Acute systolic CHF with EF 35 to 40% Continue aspirin statin and Plavix, likely acute ischemic cardiomyopathy from STEMI Patient currently on pressor support, continue to monitor volume status -- Acute respiratory failure with hypoxia Patient intubated in the emergency room patient, s/p extubation Patient now on bipap 03/08 CTA Chest: BL LL PNA noted, small left apical pneumo appreciated. COVID pcr negative x2 Nebulizers: Albuterol /budesonide scheduled. [employer] following --Acute encephalopathy Secondary to sepsis, high fever and hypoxia Patient initiated on IV antibiotics and vent support now extubated Possible aspiration pneumonia which cannot be ruled out CT head showed no acute infarct but extensive atherosclerotic disease --Cerebral atherosclerosis Continue aspirin statin and Plavix -- Sepsis with shock Patient with criteria for sepsis with elevated lactic acid Continue IV fluid and pressor support as needed -- Bilateral pneumonia Patient initiated on IV cefepime for 5 days ID consult requested Possible aspiration pneumonia also in the differential diagnosis -- Suspected COVID-19 virus infection, ruled out with 2 -ve test -- Hyponatremia Resolved with with gentle iv fluid -- Transaminitis Check acute hepatitis profile Possible secondary to underlying sepsis and hypotension -- Pneumothorax, left Small pneumothorax, s/p chest tube by EMS No intervention at this point per intencivist -- COPD with exacerbation chronic smoker nebulizer tx, supplemental O2 -- Hyperglycemia could be steroid induced Check A1c and coverage for now -- Anemia, acute on chronic Likely due to anticoagulation.-Transfused 2 units of packed RBC --Right iliopsoas hematoma Monitor H&H and consult general surgery --Severe acidosis: s/p bicarbonate drip -- DVT prophylaxis On heparin and GI prophylaxis The high probability of a clinically significant, sudden or life threatening deterioration of the system(s) required my full and direct attention, intervention and personal management. The aggregate critical care time was [35] minutes. This time is in addition to time spent performing reported procedures but includes the following: [x] Data Review and interpretation [x] Patient assessment and monitoring of vital signs [x] Documentation [x] Medication orders and management Daily clinical course 03/09: Hypotensive in AM, Dr. Inman placed right IJ CVC. Patient intiated on pressors. UOP 200 cc overnight. 03/10: Planned for extubation today, repeat covid test pending. RN called for elevated trop - ordered serial trop, ekg, 2d echo, aspirin, statin and placed cardiology consult. will cont to follow clinically, pt remains on levophed 03/11: Patient had Vtech cardiac arrest last night. EKG showed acute STEMI. placed on amioderone and heparin drip. S/p PCI today with stent placement, discontinued heparin drip and started on Aggrastat. Patient now noted with cold bluish LE right>left. Discussed with Dr Armstrong and recommended to initiate low intensity heparin drip after sheath was removed. Placed order and discussed the plan with nurse and pharmacy. Ordered stat lower extremity arterial Doppler and consulted vascular surgeon. Patient remains on Ventimask with 10 to 15 L of O2. Patient also remains confused, continue supportive care and follow clinically. 03/12/21: LE remain clod and cyanotic, R> L. cont heparin drip, monitor h/h. vasc ular procedure when clinically more stable. discussed with daughter and updated with all clinical details. pt remains on pressor. critically ill. 03/13/21; Patient had bloody BM this am. stop heparin, start protonix IV BID. follow h/h, cont pressor, transfuse 2units PRBC. mental status declined - re gen agitated and restrained. Requiring pressor support. Ordered for CT abdomen pelvis for profound anemia. platient was placed on bicarbonate drip for severe acidosis. pulled out first central line, new rIJ placed 03/14/21: CT abdomen pelvis suggestive of moderate right iliopsoas hematoma, continue to follow H&H and consult general surgery. pt on BIPAP today, h/h stable. hold ACEI/spiranolactone for GAURAV. d/c bicarbonate drip as pt becoming alkalotic. patient remains confused and agitated - on restraint Subjective Date of service: 03/14/21 Interval history: Patient seen and examined Patient on bipap, off pressor Discussed with RN, vitals noted Objective - Exam Narrative Exam: General appearance: confused, ill appearing elderly gentleman. Eyes: non-icteric ENT: other (on Bipap) Neck: supple, Respiratory: Bilateral: diminished breath sounds Cardiovascular: regular rate and rhythm Gastrointestinal: normoactive bowel sounds Extremities: no edema, cold and cyanotic foot rt>left Psych: unable to assess Neuro: moves extremities : Savage in place. - Constitutional Vitals: Vital Signs - 12hr 03/14/21 03/14/21 03/14/21 01:35 02:00 02:35 Temperature Pulse Rate 80 Pulse Rate [ Bilateral Dorsalis Pedis/ Posterior] Respiratory 25 H 27 H Rate Blood Pressure 123/43 122/35 O2 Sat by Pulse 100 100 100 Oximetry 03/14/21 03/14/21 03/14/21 02:50 03:00 03:29 Temperature 97.5 F L Pulse Rate 80 80 Pulse Rate [ Bilateral Dorsalis Pedis/ Posterior] Respiratory 25 H 20 Rate Blood Pressure 85/42 O2 Sat by Pulse 100 Oximetry 03/14/21 03/14/21 03/14/21 03:30 04:00 04:01 Temperature Pulse Rate 76 78 80 Pulse Rate [ Bilateral Dorsalis Pedis/ Posterior] Respiratory 21 25 H 17 Rate Blood Pressure 76/43 48/19 O2 Sat by Pulse 100 Oximetry 03/14/21 03/14/21 03/14/21 04:30 05:01 05:13 Temperature Pulse Rate 84 98 H 94 H Pulse Rate [ Bilateral Dorsalis Pedis/ Posterior] Respiratory 22 24 20 Rate Blood Pressure 107/63 107/63 O2 Sat by Pulse 89 99 Oximetry 03/14/21 03/14/21 03/14/21 05:23 05:30 06:00 Temperature Pulse Rate 84 75 78 Pulse Rate [ Bilateral Dorsalis Pedis/ Posterior] Respiratory 21 22 Rate Blood Pressure 112/62 91/43 120/48 O2 Sat by Pulse 100 Oximetry 03/14/21 03/14/21 03/14/21 06:31 07:01 07:06 Temperature Pulse Rate 75 85 Pulse Rate [ 87 Bilateral Dorsalis Pedis/ Posterior] Respiratory 19 20 20 Rate Blood Pressure 80/46 80/46 113/90 O2 Sat by Pulse 98 Oximetry 03/14/21 03/14/21 03/14/21 07:31 08:00 08:31 Temperature Pulse Rate 74 69 82 Pulse Rate [ Bilateral Dorsalis Pedis/ Posterior] Respiratory 15 14 16 Rate Blood Pressure 123/49 117/48 127/49 O2 Sat by Pulse Oximetry 03/14/21 03/14/21 03/14/21 08:49 08:57 09:01 Temperature 97.7 F Pulse Rate 99 H Pulse Rate [ Bilateral Dorsalis Pedis/ Posterior] Respiratory 24 15 Rate Blood Pressure 117/48 O2 Sat by Pulse 100 Oximetry 03/14/21 03/14/21 03/14/21 09:13 09:31 10:00 Temperature Pulse Rate 87 85 86 Pulse Rate [ Bilateral Dorsalis Pedis/ Posterior] Respiratory 18 20 19 Rate Blood Pressure 127/49 57/32 123/55 O2 Sat by Pulse 98 Oximetry 03/14/21 03/14/21 03/14/21 10:31 11:00 11:30 Temperature Pulse Rate 88 89 81 Pulse Rate [ Bilateral Dorsalis Pedis/ Posterior] Respiratory 17 26 H 14 Rate Blood Pressure 146/65 155/100 139/58 O2 Sat by Pulse 95 Oximetry 03/14/21 03/14/21 03/14/21 11:51 12:00 12:53 Temperature 97.6 F Pulse Rate 83 87 Pulse Rate [ Bilateral Dorsalis Pedis/ Posterior] Respiratory 16 16 Rate Blood Pressure 126/66 130/60 O2 Sat by Pulse Oximetry 03/14/21 03/14/21 13:01 13:19 Temperature Pulse Rate 86 Pulse Rate [ Bilateral Dorsalis Pedis/ Posterior] Respiratory 17 Rate Blood Pressure 105/56 O2 Sat by Pulse 100 Oximetry - Labs CBC & Chem 7: 03/15/21 04:00 03/15/21 04:00 Labs: Abnormal lab results 03/13/21 03/13/21 03/13/21 Range/Units 14:25 15:22 17:25 WBC (4.5-11.0) K/mm3 RBC (3.65-5.03) M/mm3 Hgb 6.7 L (11.8-15.2) gm/dl Hct 19.7 L* D (35.5-45.6) % Plt Count (140-440) K/mm3 Seg Neuts % (Manual) (40.0-70.0) % Seg Neutrophils # Man (1.8-7.7) K/mm3 Lymphocytes # (Manual) (1.2-5.4) K/mm3 ABG pH 7.174 L (7.320-7.450) POC ABG pCO2 (32.0-48.0) mmHg POC ABG pO2 78.7 L (83-108) mmHg ABG Hemoglobin 5.5 L (12.0-17.5) ABG Oxyhemoglobin 88.8 L (94-98) ABG Sodium 135.1 L (136.0-145.0) mmol/L ABG Potassium 5.2 H (3.40-4.50) mmol/L ABG Chloride 109.0 H (98-107) mmol/L ABG Glucose 96 H (65-95) mg/dL Carboxyhemoglobin (0.5-1.5) Carbon Dioxide (22-30) mmol/L BUN (9-20) mg/dL Creatinine (0.8-1.3) mg/dL Glucose (75-100) mg/dL POC Glucose (70-105) mg/dL Calcium (8.4-10.2) mg/dL Arterial Blood Glucose 96 H (65-95) mg/dL Arterial Blood Ionized Calcium 4.4 L (4.6-5.3) mg/dL Crossmatch See Detail 03/13/21 03/13/21 03/13/21 Range/Units 19:16 20:06 20:16 WBC (4.5-11.0) K/mm3 RBC (3.65-5.03) M/mm3 Hgb (11.8-15.2) gm/dl Hct (35.5-45.6) % Plt Count (140-440) K/mm3 Seg Neuts % (Manual) (40.0-70.0) % Seg Neutrophils # Man (1.8-7.7) K/mm3 Lymphocytes # (Manual) (1.2-5.4) K/mm3 ABG pH 7.094 L (7.320-7.450) POC ABG pCO2 64.0 H (32.0-48.0) mmHg POC ABG pO2 68.2 L (83-108) mmHg ABG Hemoglobin 7.9 L (12.0-17.5) ABG Oxyhemoglobin 84.6 L (94-98) ABG Sodium (136.0-145.0) mmol/L ABG Potassium 4.9 H (3.40-4.50) mmol/L ABG Chloride (98-107) mmol/L ABG Glucose 220 H (65-95) mg/dL Carboxyhemoglobin (0.5-1.5) Carbon Dioxide (22-30) mmol/L BUN (9-20) mg/dL Creatinine (0.8-1.3) mg/dL Glucose (75-100) mg/dL POC Glucose 47 L 188 H (70-105) mg/dL Calcium (8.4-10.2) mg/dL Arterial Blood Glucose 220 H (65-95) mg/dL Arterial Blood Ionized Calcium 4.1 L (4.6-5.3) mg/dL Crossmatch 03/13/21 03/13/21 03/14/21 Range/Units 20:24 23:17 04:00 WBC 17.9 H (4.5-11.0) K/mm3 RBC 2.55 L (3.65-5.03) M/mm3 Hgb 8.1 L 7.8 L (11.8-15.2) gm/dl Hct 24.1 L 23.1 L (35.5-45.6) % Plt Count 111 L (140-440) K/mm3 Seg Neuts % (Manual) 99.0 H (40.0-70.0) % Seg Neutrophils # Man 17.7 H (1.8-7.7) K/mm3 Lymphocytes # (Manual) 0.0 L (1.2-5.4) K/mm3 ABG pH (7.320-7.450) POC ABG pCO2 (32.0-48.0) mmHg POC ABG pO2 (83-108) mmHg ABG Hemoglobin (12.0-17.5) ABG Oxyhemoglobin (94-98) ABG Sodium (136.0-145.0) mmol/L ABG Potassium (3.40-4.50) mmol/L ABG Chloride (98-107) mmol/L ABG Glucose (65-95) mg/dL Carboxyhemoglobin (0.5-1.5) Carbon Dioxide (22-30) mmol/L BUN (9-20) mg/dL Creatinine (0.8-1.3) mg/dL Glucose (75-100) mg/dL POC Glucose 244 H (70-105) mg/dL Calcium (8.4-10.2) mg/dL Arterial Blood Glucose (65-95) mg/dL Arterial Blood Ionized Calcium (4.6-5.3) mg/dL Crossmatch 03/14/21 03/14/21 03/14/21 Range/Units 04:00 05:15 10:24 WBC (4.5-11.0) K/mm3 RBC (3.65-5.03) M/mm3 Hgb (11.8-15.2) gm/dl Hct (35.5-45.6) % Plt Count (140-440) K/mm3 Seg Neuts % (Manual) (40.0-70.0) % Seg Neutrophils # Man (1.8-7.7) K/mm3 Lymphocytes # (Manual) (1.2-5.4) K/mm3 ABG pH 7.294 L (7.320-7.450) POC ABG pCO2 69.4 H (32.0-48.0) mmHg POC ABG pO2 128.0 H (83-108) mmHg ABG Hemoglobin 10.2 L (12.0-17.5) ABG Oxyhemoglobin (94-98) ABG Sodium (136.0-145.0) mmol/L ABG Potassium (3.40-4.50) mmol/L ABG Chloride (98-107) mmol/L ABG Glucose 130 H (65-95) mg/dL Carboxyhemoglobin 0.3 L (0.5-1.5) Carbon Dioxide 35 H (22-30) mmol/L BUN 48 H (9-20) mg/dL Creatinine 1.7 H D (0.8-1.3) mg/dL Glucose 258 H (75-100) mg/dL POC Glucose 203 H (70-105) mg/dL Calcium 7.2 L (8.4-10.2) mg/dL Arterial Blood Glucose 130 H (65-95) mg/dL Arterial Blood Ionized Calcium 4.1 L (4.6-5.3) mg/dL Crossmatch HEART Score - HEART Score Age: > 65 Risk factors: No known risk factors Troponin: Troponin T 0.261 ng/mL (0.00-0.029) H* D 03/12/21 04:40 Troponin: < normal limit - Critical Actions Critical Actions: 0-3 pts:0.9-1.7%risk of adverse cardiac event.Candidate for discharge
[2021-03-14 15:08] LABS: Hematocrit 24.1 % (35.5-45.6); Hemoglobin 8.3 gm/dl (11.8-15.2)
--- NOTE | 2021-03-14 15:49 | Progress Note ---
Assessment and Plan - Patient Problems (1) Acute myocardial infarction Current Visit: Yes Status: Acute Plan to address problem: Patient admitted with acute respiratory failure, during his course in the hospital developed an anterior myocardial infarction which prompted a cardiac catheterization and coronary stenting of the mid LAD. There is an underlying ischemic cardiomyopathy. We will continue aggressive medical therapy for coronary artery disease and cardiomyopathy. The patient's prognosis is guarded in the setting of his persistent respiratory insufficiency and respiratory failure. Subjective Date of service: 03/14/21 Interval history: Patient is currently on BiPAP, mildly lethargic. Heart rate is 96, sinus rhythm, blood pressure 103 systolic. Objective Vital Signs Temp Pulse Pulse Resp BP Pulse Ox 03/14/21 13:19 100 03/14/21 13:01 86 17 105/56 03/14/21 12:53 87 16 130/60 03/14/21 12:00 83 16 126/66 03/14/21 11:51 97.6 F 03/14/21 11:30 81 14 139/58 03/14/21 11:00 89 26 H 155/100 95 03/14/21 10:31 88 17 146/65 03/14/21 10:00 86 19 123/55 03/14/21 09:31 85 20 57/32 03/14/21 09:13 87 18 127/49 98 03/14/21 09:01 99 H 15 117/48 03/14/21 08:57 24 100 03/14/21 08:49 97.7 F 03/14/21 08:31 82 16 127/49 03/14/21 08:00 69 14 117/48 03/14/21 07:31 74 15 123/49 03/14/21 07:06 87 20 113/90 98 03/14/21 07:01 85 20 80/46 03/14/21 06:31 75 19 80/46 03/14/21 06:00 78 22 120/48 100 03/14/21 05:30 75 21 91/43 03/14/21 05:23 84 112/62 03/14/21 05:13 94 H 20 99 03/14/21 05:01 98 H 24 107/63 89 03/14/21 04:30 84 22 107/63 03/14/21 04:01 80 17 48/19 03/14/21 04:00 78 25 H 100 03/14/21 03:30 76 21 76/43 03/14/21 03:29 97.5 F L 03/14/21 03:00 80 20 85/42 03/14/21 02:50 80 25 H 100 03/14/21 02:35 122/35 100 03/14/21 02:00 80 27 H 123/43 100 03/14/21 01:35 25 H 100 03/14/21 01:30 80 15 132/54 100 03/14/21 01:06 86 17 142/37 100 03/14/21 01:01 77 18 142/37 100 03/14/21 01:00 97.2 F L 03/14/21 00:31 81 25 H 161/50 100 03/14/21 00:01 82 16 137/39 100 03/14/21 00:00 81 134/79 03/13/21 23:45 89 20 141/72 100 03/13/21 23:36 96.7 F L 03/13/21 23:31 82 18 78/52 99 03/13/21 23:25 81 25 H 100 03/13/21 23:01 81 18 167/48 97 03/13/21 22:37 96.7 F L 81 25 H 144/79 100 03/13/21 22:31 79 15 144/79 98 03/13/21 22:07 96.7 F L 81 25 H 167/48 100 03/13/21 22:00 80 19 154/129 99 03/13/21 21:58 88 21 98 03/13/21 21:37 96.7 F L 81 25 H 134/79 100 03/13/21 21:35 81 25 H 100 03/13/21 21:30 81 18 147/128 99 03/13/21 21:07 96.7 F L 81 25 H 167/48 100 03/13/21 21:01 78 21 182/53 100 03/13/21 20:40 96.2 F L 80 18 137/89 97 03/13/21 20:37 96.7 F L 81 25 H 167/48 100 03/13/21 20:31 80 18 137/89 97 03/13/21 20:20 96.0 F L 03/13/21 20:07 96.0 F L 82 21 137/89 100 03/13/21 20:00 94.1 F L 82 21 137/89 03/13/21 19:37 96.0 F L 82 21 137/89 100 03/13/21 19:31 81 21 152/126 03/13/21 19:26 96.0 F L 31 H 100 03/13/21 19:22 96.0 F L 82 21 137/89 100 03/13/21 19:19 96.0 F L 80 23 116/90 99 03/13/21 19:17 96 F L 80 23 116/90 99 03/13/21 19:01 79 21 130/53 83 L 03/13/21 18:45 96.8 F L 80 21 130/53 100 03/13/21 18:31 83 16 03/13/21 18:15 96.8 F L 77 21 90/70 100 03/13/21 18:01 75 22 62/36 03/13/21 18:00 97.4 F L 75 20 99/45 100 03/13/21 17:31 77 22 87/45 03/13/21 17:01 77 22 67/42 03/13/21 16:31 78 18 03/13/21 16:01 78 20 03/13/21 16:00 97.5 F L 78 100 - Physical Examination General: No Apparent Distress HEENT: Positive: PERRL Neck: Positive: neck supple Cardiac: Positive: Reg Rate and Rhythm Lungs: Positive: Decreased Breath Sounds Neuro: Positive: Weakness Abdomen: Positive: Soft Skin: Positive: Clear Extremities: Absent: edema - Labs and Meds CBC 03/13/21 03/14/21 03/14/21 Range/Units 20:24 04:00 14:54 WBC 17.9 H (4.5-11.0) K/mm3 RBC 2.55 L (3.65-5.03) M/mm3 Hgb 8.1 L 7.8 L 8.3 L (11.8-15.2) gm/dl Hct 24.1 L 23.1 L 24.1 L (35.5-45.6) % Plt Count 111 L (140-440) K/mm3 Comprehensive Metabolic Panel 03/14/21 Range/Units 04:00 Sodium 144 (137-145) mmol/L Potassium 4.3 (3.6-5.0) mmol/L Chloride 103.5 (98-107) mmol/L Carbon Dioxide 35 H (22-30) mmol/L BUN 48 H (9-20) mg/dL Creatinine 1.7 H D (0.8-1.3) mg/dL Glucose 258 H (75-100) mg/dL Calcium 7.2 L (8.4-10.2) mg/dL
--- NOTE | 2021-03-14 16:17 | Gastroenterology Consultation ---
History of Present Illness - Reason for Consult Consult date: 03/14/21 GI bleed Requesting physician: ROMINA ROE - History of Present Illness This is a 65 yo male admitted on 03/08/2021 brought in by EMS for respiratory failure and AMS. Intubated in the ED for hypoxic respiratory failure and AMS. Hospital stay complicated with STEMI and V tach cardiac arrest s/p cardiac cath with PCI to mid LAD and ischemic cardiomyopathy. Patient since extubated but now with respiratory distress requiring Bipap and worsening mental status. GI consulted for blood in the stools. Per nursing, noted to have black stool yesterday and this morning had another episode but more greenish color. Heparin drip was held. Drop H/H to 6 and received blood transfusion. Hgb at 7.[address] a/p showing moderate right iliopsoas hematoma. Unable to obtain much history from patient with lethargy and on Bipap. medication list reviewed. Past History Past Medical History: other (Past medical history not known) Past Surgical History: Other (Not known) Social history: full code Family history: hypertension Medications and Allergies Allergies Allergy/AdvReac Type Severity Reaction Status Date / Time Unable to Assess Allergy Verified 03/08/21 14:37 Active Meds: Active Medications Acetaminophen (Acetaminophen 325 Mg Tab) 650 mg PO Q4H PRN PRN Reason: Pain MILD(1-3)/Fever >100.5/MYERS Hydrocodone Bitart/Acetaminophen (Hydrocodone/Acetaminophen 5-325 Mg Tab) 1 each PO Q6H PRN PRN Reason: Pain, Moderate (4-6) Amiodarone HCl (Amiodarone 200 Mg Tab) 200 mg PO QDAY [facility] Last Admin: 03/14/21 13:13 Dose: Not Given Documented by: Lipase/Protease/Amylase (Lipase 10,500/Protease 25,000/Amylase 43,750 (Units) Dr Alex) 1 each FEEDTUBE PRN PRN PRN Reason: For Clogged Feeding Tube Arformoterol Tartrate (Arformoterol 15 Mcg/2 Ml Nebu) 15 mcg IH Q12HRT [facility] Last Admin: 03/13/21 22:45 Dose: Not Given Documented by: Aspirin (Aspirin 81 Mg Tab Chew) 81 mg PO QDAY [facility] Last Admin: 03/14/21 13:13 Dose: Not Given Documented by: Atorvastatin Calcium (Atorvastatin 40 Mg Tab) 40 mg PO QHS [facility] Last Admin: 03/13/21 21:06 Dose: Not Given Documented by: Budesonide (Budesonide 0.5 Mg/2 Ml Nebu) 0.5 mg IH Q12HRT [facility] Last Admin: 03/13/21 22:45 Dose: Not Given Documented by: Clopidogrel Bisulfate (Clopidogrel 75 Mg Tab) 75 mg PO QDAY [facility] Last Admin: 03/14/21 13:13 Dose: Not Given Documented by: Haloperidol Lactate (Haloperidol Lactate 5 Mg/1 Ml Inj) 5 mg IV Q6H PRN PRN Reason: Agitation Last Admin: 03/13/21 11:28 Dose: 5 mg Documented by: Heparin Sodium (Porcine) (Heparin 5,000 Unit/1 Ml Vial) 5,000 unit SUB-Q Q12HR [facility] Last Admin: 03/14/21 10:54 Dose: 5,000 unit Documented by: Norepinephrine (Levophed Drip 4 Mg/Ns 250 Ml) 4 mg in 250 mls @ 7.5 mls/hr IV TITR [facility]; Protocol Last Titration: 03/13/21 21:28 Dose: 0 mcg/min, 0 mls/hr Documented by: Sodium Chloride (Nacl 0.9% 500 Ml) 500 mls @ 5 mls/hr IV DIRECT [facility] Vasopressin 20 unit/ Sodium (Chloride) 101 mls @ 9.09 mls/hr IV TITR [facility]; Protocol Last Titration: 03/14/21 00:42 Dose: 0 units/min, 0 mls/hr Documented by: Sodium Bicarbonate 150 meq/ (Dextrose) 1,150 mls @ 150 mls/hr IV DIRECT [facility] Last Admin: 03/14/21 03:45 Dose: 150 mls/hr Documented by: Insulin Human Lispro (Insulin Lispro 100 Unit/Ml) 0 unit SUB-Q Q6HR [facility]; Protocol Last Admin: 03/14/21 13:14 Dose: Not Given Documented by: Isosorbide Mononitrate (Isosorbide Mononitrate Er 30 Mg Tab) 30 mg PO QDAY [facility] Last Admin: 03/14/21 13:13 Dose: Not Given Documented by: Lisinopril (Lisinopril 5 Mg Tab) 2.5 mg PO QDAY [facility] Last Admin: 03/14/21 13:13 Dose: Not Given Documented by: Lorazepam (Lorazepam 2 Mg/Ml Vial) 1 mg IV Q4H PRN PRN Reason: Agitation Last Admin: 03/13/21 10:35 Dose: 1 mg Documented by: Lorazepam (Lorazepam 2 Mg/Ml Vial) 0.5 mg IV Q4H PRN PRN Reason: Agitation Last Admin: 03/14/21 02:43 Dose: 0.5 mg Documented by: Methylprednisolone Sodium Succinate (Methylprednisolone Sod Succinate 40 Mg/1 Ml Inj) 40 mg IV Q8HR [facility] Last Admin: 03/14/21 13:43 Dose: 40 mg Documented by: Metoclopramide HCl (Metoclopramide 10 Mg/2 Ml Inj) 10 mg IV Q6H PRN PRN Reason: Nausea And Vomiting Metoprolol Tartrate (Metoprolol Tartrate 25 Mg Tab) 25 mg PO Q6HR [facility] Last Admin: 03/14/21 13:14 Dose: Not Given Documented by: Ondansetron HCl (Ondansetron 4 Mg/2 Ml Inj) 4 mg IV Q3H PRN PRN Reason: Nausea And Vomiting Pantoprazole Sodium (Pantoprazole 40 Mg Inj) 40 mg IV BID [facility] Last Admin: 03/14/21 10:54 Dose: 40 mg Documented by: Simple Syrup (Simple Syrup 15 Ml) 15 ml FEEDTUBE PRN PRN PRN Reason: Hypoglycemia Simple Syrup (Simple Syrup 15 Ml) 30 ml FEEDTUBE PRN PRN PRN Reason: Hypoglycemia Sodium Bicarbonate (Sodium Bicarbonate 325 Mg Tab) 325 mg FEEDTUBE PRN PRN PRN Reason: For Clogged Feeding Tube Sodium Chloride (Sodium Chloride 0.9% 10 Ml Flush Syringe) 10 ml IV BID [facility] Last Admin: 03/14/21 10:54 Dose: 10 ml Documented by: Sodium Chloride (Sodium Chloride 0.9% 10 Ml Flush Syringe) 10 ml IV PRN PRN PRN Reason: LINE FLUSH Last Admin: 03/14/21 02:44 Dose: 10 ml Documented by: Spironolactone (Spironolactone 25 Mg Tab) 25 mg PO QDAY [facility] Last Admin: 03/14/21 13:13 Dose: Not Given Documented by: Review of Systems - Review of Systems ROS unobtainable: due to mental status Exam - Constitutional Vital Signs: Temp Pulse Resp BP Pulse Ox 97.6 F 107 H 17 52/22 98 03/14/21 11:51 03/14/21 15:31 03/14/21 15:31 03/14/21 15:01 03/14/21 15:31 General appearance: mild distress - Respiratory Respiratory effort: other (on bipap, increased work of breathing) - Cardiovascular Rhythm: regular Heart Sounds: Present: S1 & S2 - Gastrointestinal General gastrointestinal: Present: soft, non-distended - Integumentary Integumentary: Present: clear - Neurologic Neurological: other (lethargic) - Labs CBC & Chem 7: 03/14/21 14:54 03/14/21 04:00 Lab Results: Laboratory Results - last 24 hr 03/13/21 03/13/21 03/13/21 15:22 17:25 19:16 WBC RBC Hgb Hct MCV MCH MCHC RDW Plt Count Add Manual Diff Total Counted Seg Neutrophils % Seg Neuts % (Manual) Monocytes % (Manual) Nucleated RBC % Seg Neutrophils # Man Band Neutrophils # Lymphocytes # (Manual) Abs React Lymphs (Man) Monocytes # (Manual) Eosinophils # (Manual) Basophils # (Manual) Metamyelocytes # Myelocytes # Promyelocytes # Blast Cells # WBC Morphology Hypersegmented Neuts Hyposegmented Neuts Hypogranular Neuts Smudge Cells Toxic Granulation Toxic Vacuolation Dohle Bodies Pelger-Huet Anomaly Maritza Rods Platelet Estimate Clumped Platelets Plt Clumps, EDTA Large Platelets Giant Platelets Platelet Satelliting Plt Morphology Comment RBC Morphology Dimorphic RBCs Polychromasia Hypochromasia Poikilocytosis Anisocytosis Microcytosis Macrocytosis Spherocytes Pappenheimer Bodies Sickle Cells Target Cells Tear Drop Cells Ovalocytes Helmet Cells Gautam-Jim Thorpe Bodies Davis Rings Iuka Cells Bite Cells Crenated Cell Elliptocytes Acanthocytes (Spur) Rouleaux Hemoglobin C Crystals Schistocytes Malaria parasites Timoteo Bodies Hem Pathologist Commnt ABG pH 7.174 L POC ABG pCO2 40.5 POC ABG pO2 78.7 L POC ABG HCO3 14.6 ABG O2 Saturation 90.2 POC ABG Base Excess -12.7 ABG Hemoglobin 5.5 L ABG Oxyhemoglobin 88.8 L ABG Methemoglobin 0.3 ABG Sodium 135.1 L ABG Potassium 5.2 H ABG Chloride 109.0 H ABG Glucose 96 H Carboxyhemoglobin 1.3 FiO2 % 31.0 Sodium Potassium Chloride Carbon Dioxide Anion Gap BUN Creatinine Estimated GFR BUN/Creatinine Ratio Glucose POC Glucose 47 L Calcium Arterial Blood Glucose 96 H Arterial Blood Ionized Calcium 4.4 L Blood Type B POSITIVE Antibody Screen Negative Crossmatch See Detail 03/13/21 03/13/21 03/13/21 20:06 20:16 20:24 WBC RBC Hgb 8.1 L Hct 24.1 L MCV MCH MCHC RDW Plt Count Add Manual Diff Total Counted Seg Neutrophils % Seg Neuts % (Manual) Monocytes % (Manual) Nucleated RBC % Seg Neutrophils # Man Band Neutrophils # Lymphocytes # (Manual) Abs React Lymphs (Man) Monocytes # (Manual) Eosinophils # (Manual) Basophils # (Manual) Metamyelocytes # Myelocytes # Promyelocytes # Blast Cells # WBC Morphology Hypersegmented Neuts Hyposegmented Neuts Hypogranular Neuts Smudge Cells Toxic Granulation Toxic Vacuolation Dohle Bodies Pelger-Huet Anomaly Maritza Rods Platelet Estimate Clumped Platelets Plt Clumps, EDTA Large Platelets Giant Platelets Platelet Satelliting Plt Morphology Comment RBC Morphology Dimorphic RBCs Polychromasia Hypochromasia Poikilocytosis Anisocytosis Microcytosis Macrocytosis Spherocytes Pappenheimer Bodies Sickle Cells Target Cells Tear Drop Cells Ovalocytes Helmet Cells Gautam-Jim Thorpe Bodies Davis Rings Iuka Cells Bite Cells Crenated Cell Elliptocytes Acanthocytes (Spur) Rouleaux Hemoglobin C Crystals Schistocytes Malaria parasites Timoteo Bodies Hem Pathologist Commnt ABG pH 7.094 L POC ABG pCO2 64.0 H POC ABG pO2 68.2 L POC ABG HCO3 19.2 ABG O2 Saturation 85.2 POC ABG Base Excess -10.2 ABG Hemoglobin 7.9 L ABG Oxyhemoglobin 84.6 L ABG Methemoglobin 0 ABG Sodium 136.1 ABG Potassium 4.9 H ABG Chloride 106.0 ABG Glucose 220 H Carboxyhemoglobin 0.7 FiO2 % 50.0 Sodium Potassium Chloride Carbon Dioxide Anion Gap BUN Creatinine Estimated GFR BUN/Creatinine Ratio Glucose POC Glucose 188 H Calcium Arterial Blood Glucose 220 H Arterial Blood Ionized Calcium 4.1 L Blood Type Antibody Screen Crossmatch 03/13/21 03/14/21 03/14/21 23:17 04:00 04:00 WBC 17.9 H RBC 2.55 L Hgb 7.8 L Hct 23.1 L MCV 91 MCH 31 MCHC 34 RDW 15.0 Plt Count 111 L Add Manual Diff Complete Total Counted 100 Seg Neutrophils % [employer] Superintendent Seg Neuts % (Manual) 99.0 H Monocytes % (Manual) 1.0 Nucleated RBC % Not Reportable Seg Neutrophils # Man 17.7 H Band Neutrophils # 0.0 Lymphocytes # (Manual) 0.0 L Abs React Lymphs (Man) 0.0 Monocytes # (Manual) 0.2 Eosinophils # (Manual) 0.0 Basophils # (Manual) 0.0 Metamyelocytes # 0.0 Myelocytes # 0.0 Promyelocytes # 0.0 Blast Cells # 0.0 WBC Morphology Not Reportable Hypersegmented Neuts Not Reportable Hyposegmented Neuts Not Reportable Hypogranular Neuts Not Reportable Smudge Cells Not Reportable Toxic Granulation Not Reportable Toxic Vacuolation Not Reportable Dohle Bodies Not Reportable Pelger-Huet Anomaly Not Reportable Maritza Rods Not Reportable Platelet Estimate Consistent w auto Clumped Platelets Not Reportable Plt Clumps, EDTA Not Reportable Large Platelets Not Reportable Giant Platelets Not Reportable Platelet Satelliting Not Reportable Plt Morphology Comment Not Reportable RBC Morphology Normal Dimorphic RBCs Not Reportable Polychromasia Not Reportable Hypochromasia Not Reportable Poikilocytosis Not Reportable Anisocytosis Not Reportable Microcytosis Not Reportable Macrocytosis Not Reportable Spherocytes Not Reportable Pappenheimer Bodies Not Reportable Sickle Cells Not Reportable Target Cells Not Reportable Tear Drop Cells Not Reportable Ovalocytes Not Reportable Helmet Cells Not Reportable Gautam-Jim Thorpe Bodies Not Reportable Davis Rings Not Reportable Iuka Cells Not Reportable Bite Cells Not Reportable Crenated Cell Not Reportable Elliptocytes Not Reportable Acanthocytes (Spur) Not Reportable Rouleaux Not Reportable Hemoglobin C Crystals Not Reportable Schistocytes Not Reportable Malaria parasites Not Reportable Timoteo Bodies Not Reportable Hem Pathologist Commnt No ABG pH POC ABG pCO2 POC ABG pO2 POC ABG HCO3 ABG O2 Saturation POC ABG Base Excess ABG Hemoglobin ABG Oxyhemoglobin ABG Methemoglobin ABG Sodium ABG Potassium ABG Chloride ABG Glucose Carboxyhemoglobin FiO2 % Sodium 144 Potassium 4.3 Chloride 103.5 Carbon Dioxide 35 H Anion Gap 10 BUN 48 H Creatinine 1.7 H D Estimated GFR 40 BUN/Creatinine Ratio 28 Glucose 258 H POC Glucose 244 H Calcium 7.2 L Arterial Blood Glucose Arterial Blood Ionized Calcium Blood Type Antibody Screen Crossmatch 03/14/21 03/14/21 03/14/21 05:15 10:24 11:16 WBC RBC Hgb Hct MCV MCH MCHC RDW Plt Count Add Manual Diff Total Counted Seg Neutrophils % Seg Neuts % (Manual) Monocytes % (Manual) Nucleated RBC % Seg Neutrophils # Man Band Neutrophils # Lymphocytes # (Manual) Abs React Lymphs (Man) Monocytes # (Manual) Eosinophils # (Manual) Basophils # (Manual) Metamyelocytes # Myelocytes # Promyelocytes # Blast Cells # WBC Morphology Hypersegmented Neuts Hyposegmented Neuts Hypogranular Neuts Smudge Cells Toxic Granulation Toxic Vacuolation Dohle Bodies Pelger-Huet Anomaly Maritza Rods Platelet Estimate Clumped Platelets Plt Clumps, EDTA Large Platelets Giant Platelets Platelet Satelliting Plt Morphology Comment RBC Morphology Dimorphic RBCs Polychromasia Hypochromasia Poikilocytosis Anisocytosis Microcytosis Macrocytosis Spherocytes Pappenheimer Bodies Sickle Cells Target Cells Tear Drop Cells Ovalocytes Helmet Cells Gautam-Jim Thorpe Bodies Davis Rings Iuka Cells Bite Cells Crenated Cell Elliptocytes Acanthocytes (Spur) Rouleaux Hemoglobin C Crystals Schistocytes Malaria parasites Timoteo Bodies Hem Pathologist Commnt ABG pH 7.294 L POC ABG pCO2 69.4 H POC ABG pO2 128.0 H POC ABG HCO3 32.9 ABG O2 Saturation 97.6 POC ABG Base Excess 4.9 ABG Hemoglobin 10.2 L ABG Oxyhemoglobin 97.0 ABG Methemoglobin 0.3 ABG Sodium 138.0 ABG Potassium 4.1 ABG Chloride 100.0 ABG Glucose 130 H Carboxyhemoglobin 0.3 L FiO2 % 50.0 Sodium Potassium Chloride Carbon Dioxide Anion Gap BUN Creatinine Estimated GFR BUN/Creatinine Ratio Glucose POC Glucose 203 H 97 Calcium Arterial Blood Glucose 130 H Arterial Blood Ionized Calcium 4.1 L Blood Type Antibody Screen Crossmatch 03/14/21 14:54 WBC RBC Hgb 8.3 L Hct 24.1 L MCV MCH MCHC RDW Plt Count Add Manual Diff Total Counted Seg Neutrophils % Seg Neuts % (Manual) Monocytes % (Manual) Nucleated RBC % Seg Neutrophils # Man Band Neutrophils # Lymphocytes # (Manual) Abs React Lymphs (Man) Monocytes # (Manual) Eosinophils # (Manual) Basophils # (Manual) Metamyelocytes # Myelocytes # Promyelocytes # Blast Cells # WBC Morphology Hypersegmented Neuts Hyposegmented Neuts Hypogranular Neuts Smudge Cells Toxic Granulation Toxic Vacuolation Dohle Bodies Pelger-Huet Anomaly Maritza Rods Platelet Estimate Clumped Platelets Plt Clumps, EDTA Large Platelets Giant Platelets Platelet Satelliting Plt Morphology Comment RBC Morphology Dimorphic RBCs Polychromasia Hypochromasia Poikilocytosis Anisocytosis Microcytosis Macrocytosis Spherocytes Pappenheimer Bodies Sickle Cells Target Cells Tear Drop Cells Ovalocytes Helmet Cells Gautam-Jim Thorpe Bodies Davis Rings Iuka Cells Bite Cells Crenated Cell Elliptocytes Acanthocytes (Spur) Rouleaux Hemoglobin C Crystals Schistocytes Malaria parasites Timoteo Bodies Hem Pathologist Commnt ABG pH POC ABG pCO2 POC ABG pO2 POC ABG HCO3 ABG O2 Saturation POC ABG Base Excess ABG Hemoglobin ABG Oxyhemoglobin ABG Methemoglobin ABG Sodium ABG Potassium ABG Chloride ABG Glucose Carboxyhemoglobin FiO2 % Sodium Potassium Chloride Carbon Dioxide Anion Gap BUN Creatinine Estimated GFR BUN/Creatinine Ratio Glucose POC Glucose Calcium Arterial Blood Glucose Arterial Blood Ionized Calcium Blood Type Antibody Screen Crossmatch - Imaging CT Scan: report reviewed Assessment and Plan # GI bleed - per nursing, noted to have black stool yesterday and this morning had another episode but more greenish color. Heparin drip was held. Drop H/H to 6 and received blood transfusion. Hgb at 7.8 and 8.3 today. - No signs of active bleeding at this time. - CT showing moderate right iliopsoas hematoma. - suspect possible upper GI bleed as well given report of black stools with PUD in the setting of anticoagulation. rec - supportive care - cont with PPI IV - monitor H/H and for signs of bleeding. - patient not stable for respiratory standpoint for endoscopy at this time. - spoke with daughter on the phone and updated. no prior h/o GI bleed. No prior EGD or colonoscopy. - of note, patient has another chart with previous admission in 2019 for COPD exacerbation. [place], daughter: [phone] - Patient Problems (1) Anemia Current Visit: Yes Status: Chronic Qualifiers: Anemia type: unspecified type Qualified Code(s): D64.9 - Anemia, unspecified
[2021-03-14] MEDS: ARFORMOTEROL 15 MCG/2 ML NEBU IH SCH ×2 (17:05→22:22)
[2021-03-14] MEDS: BUDESONIDE 0.5 MG/2 ML NEBU IH SCH ×2 (17:05→22:22)
[2021-03-14] MEDS ORDERED: D5W/0.9% NACL 1,000 ML IV SCH (18:00)
--- NOTE | 2021-03-14 18:30 | XRay Report ---
CHEST 1 VIEW 03/14/2021 5:22 PM INDICATION / CLINICAL INFORMATION: sob. COMPARISON: Chest x-ray 03/13/2021 FINDINGS: SUPPORT DEVICES: Right internal jugular CVL projects over SVC. HEART / MEDIASTINUM: No significant abnormality. LUNGS / PLEURA: Mild bibasilar parenchymal opacities are unchanged suggestive for pneumonia No pneumo thorax. ADDITIONAL FINDINGS: No significant additional findings. IMPRESSION: 1. Stable chest Signer Name: Efren Maldonado MD Signed: 03/14/2021 6:26 PM Workstation Name: [id number]
[2021-03-14] MEDS: MORPHINE 2 MG/1 ML INJ IV PRN (18:57)
--- NOTE | 2021-03-15 00:21 | Progress Note ---
Subjective Date of service: 03/14/21 Principal diagnosis: Respiratory distress; Covid Positive Interval history: Called for endotrachial intubation on patient with respiatory distress consequent to Covid disease. On arrival, patient was on BIPAP machine with 02 saturation at 95%. Blood pressure was 129/92 and a heart rate of 121. She was induced with Inj. Propofol 120mg and Anectine 100mg. Laryngoscopy was with size 3 Glydescope blade and intubation with size7 ETT. Procedure was without complications and further management by respiratory therapist. Objective - Constitutional Vitals: Vital Signs - 12hr 03/14/21 03/14/21 03/14/21 12:53 13:01 13:19 Temperature Pulse Rate 87 86 Respiratory 16 17 Rate Blood Pressure 130/60 105/56 O2 Sat by Pulse 100 Oximetry 03/14/21 03/14/21 03/14/21 13:31 14:00 14:01 Temperature Pulse Rate 91 H 98 H 103 H Respiratory 22 15 Rate Blood Pressure 81/36 100/73 O2 Sat by Pulse 51 L Oximetry 03/14/21 03/14/21 03/14/21 14:31 15:01 15:31 Temperature Pulse Rate 100 H 87 107 H Respiratory 21 15 17 Rate Blood Pressure 103/63 52/22 O2 Sat by Pulse 96 98 Oximetry 03/14/21 03/14/21 03/14/21 16:01 16:31 17:00 Temperature 98.5 F Pulse Rate 103 H 98 H Respiratory 17 20 Rate Blood Pressure 152/56 109/65 O2 Sat by Pulse 83 L Oximetry 03/14/21 03/14/21 03/14/21 17:01 17:31 18:00 Temperature Pulse Rate 98 H 138 H 96 H Respiratory 20 16 Rate Blood Pressure 149/78 95/67 O2 Sat by Pulse 100 Oximetry 03/14/21 03/14/21 03/14/21 18:01 18:31 19:00 Temperature Pulse Rate 96 H 100 H 94 H Respiratory 22 19 18 Rate Blood Pressure 95/67 140/62 140/61 O2 Sat by Pulse 51 L 98 Oximetry 03/14/21 03/14/21 03/14/21 19:17 19:30 20:01 Temperature Pulse Rate 85 90 Respiratory 22 17 15 Rate Blood Pressure 112/51 141/57 O2 Sat by Pulse 97 99 Oximetry 03/14/21 03/14/2103/14/21 20:30 21:01 21:05 Temperature Pulse Rate 82 89 Respiratory 17 17 Rate Blood Pressure 132/56 137/60 O2 Sat by Pulse 100 100 100 Oximetry 03/14/21 22:00 Temperature Pulse Rate Respiratory Rate Blood Pressure O2 Sat by Pulse 99 Oximetry - Labs CBC & Chem 7: 03/14/21 14:54 03/14/21 04:00 Labs: Abnormal lab results 03/13/21 03/14/21 03/14/21 Range/Units 20:24 04:00 04:00 WBC 17.9 H (4.5-11.0) K/mm3 RBC 2.55 L (3.65-5.03) M/mm3 Hgb 8.1 L 7.8 L (11.8-15.2) gm/dl Hct 24.1 L 23.1 L (35.5-45.6) % Plt Count 111 L (140-440) K/mm3 Seg Neuts % (Manual) 99.0 H (40.0-70.0) % Seg Neutrophils # Man 17.7 H (1.8-7.7) K/mm3 Lymphocytes # (Manual) 0.0 L (1.2-5.4) K/mm3 ABG pH (7.320-7.450) POC ABG pCO2 (32.0-48.0) mmHg POC ABG pO2 (83-108) mmHg ABG Hemoglobin (12.0-17.5) ABG Glucose (65-95) mg/dL Carboxyhemoglobin (0.5-1.5) Carbon Dioxide 35 H (22-30) mmol/L BUN 48 H (9-20) mg/dL Creatinine 1.7 H D (0.8-1.3) mg/dL Glucose 258 H (75-100) mg/dL POC Glucose (70-105) mg/dL Calcium 7.2 L (8.4-10.2) mg/dL Arterial Blood Glucose (65-95) mg/dL Arterial Blood Ionized Calcium (4.6-5.3) mg/dL 03/14/21 03/14/21 03/14/21 Range/Units 05:15 10:24 14:54 WBC (4.5-11.0) K/mm3 RBC (3.65-5.03) M/mm3 Hgb 8.3 L (11.8-15.2) gm/dl Hct 24.1 L (35.5-45.6) % Plt Count (140-440) K/mm3 Seg Neuts % (Manual) (40.0-70.0) % Seg Neutrophils # Man (1.8-7.7) K/mm3 Lymphocytes # (Manual) (1.2-5.4) K/mm3 ABG pH 7.294 L (7.320-7.450) POC ABG pCO2 69.4 H (32.0-48.0) mmHg POC ABG pO2 128.0 H (83-108) mmHg ABG Hemoglobin 10.2 L (12.0-17.5) ABG Glucose 130 H (65-95) mg/dL Carboxyhemoglobin 0.3 L (0.5-1.5) Carbon Dioxide (22-30) mmol/L BUN (9-20) mg/dL Creatinine (0.8-1.3) mg/dL Glucose (75-100) mg/dL POC Glucose 203 H (70-105) mg/dL Calcium (8.4-10.2) mg/dL Arterial Blood Glucose 130 H (65-95) mg/dL Arterial Blood Ionized Calcium 4.1 L (4.6-5.3) mg/dL 03/14/21 03/14/21 Range/Units 17:37 23:39 WBC (4.5-11.0) K/mm3 RBC (3.65-5.03) M/mm3 Hgb (11.8-15.2) gm/dl Hct (35.5-45.6) % Plt Count (140-440) K/mm3 Seg Neuts % (Manual) (40.0-70.0) % Seg Neutrophils # Man (1.8-7.7) K/mm3 Lymphocytes # (Manual) (1.2-5.4) K/mm3 ABG pH (7.320-7.450) POC ABG pCO2 (32.0-48.0) mmHg POC ABG pO2 (83-108) mmHg ABG Hemoglobin (12.0-17.5) ABG Glucose (65-95) mg/dL Carboxyhemoglobin (0.5-1.5) Carbon Dioxide (22-30) mmol/L BUN (9-20) mg/dL Creatinine (0.8-1.3) mg/dL Glucose (75-100) mg/dL POC Glucose 110 H 112 H (70-105) mg/dL Calcium (8.4-10.2) mg/dL Arterial Blood Glucose (65-95) mg/dL Arterial Blood Ionized Calcium (4.6-5.3) mg/dL
[2021-03-15] MEDS: LORazepam 2 MG/ML VIAL IV PRN ×3 (00:25→20:04)
[2021-03-15] MEDS: INSULIN LISPRO 100 UNIT/ML SUB-Q SCH ×4 (00:26→20:00)
[2021-03-15] MEDS: METOPROLOL TARTRATE 25 MG TAB PO SCH ×3 (00:26→12:10)
[2021-03-15] MEDS: PANTOPRAZOLE 40 MG INJ IV SCH ×3 (00:32→22:17)
[2021-03-15] MEDS: methylPREDNISolone Sod Succinate 40 MG/1 ML INJ IV SCH ×3 (06:10→22:17)
[2021-03-15 06:13] LABS: Hematocrit 23.4 % (35.5-45.6)
[2021-03-15] MEDS: BUDESONIDE 0.5 MG/2 ML NEBU IH SCH ×2 (08:38→19:51)
[2021-03-15] MEDS: ARFORMOTEROL 15 MCG/2 ML NEBU IH SCH ×2 (08:38→19:51)
--- NOTE | 2021-03-15 10:09 | Progress Note ---
Assessment and Plan - Patient Problems (1) Acute respiratory acidosis Current Visit: Yes Status: Acute (2) Acute encephalopathy Current Visit: Yes Status: Acute (3) Acute myocardial infarction Current Visit: Yes Status: Acute (4) Acute respiratory failure with hypoxia Current Visit: Yes Status: Acute (5) Bilateral pneumonia Current Visit: Yes Status: Acute (6) Dehydration Current Visit: Yes Status: Acute (7) Sepsis Current Visit: Yes Status: Acute (8) Anemia Current Visit: Yes Status: Chronic Qualifiers: Anemia type: unspecified type Qualified Code(s): D64.9 - Anemia, unspecified (9) Hematoma Current Visit: Yes Status: Acute Subjective Principal diagnosis: Respiratory distress; Covid Positive Interval history: event noted pt on o2 nc Objective Vital Signs - 12hr 03/14/21 03/14/21 03/14/21 22:30 23:00 23:36 Temperature Pulse Rate 106 H 90 106 H Pulse Rate [ Bilateral Throughout] Respiratory 21 18 22 Rate Respiratory Rate [Bilateral Throughout] Blood Pressure 181/78 112/55 112/55 O2 Sat by Pulse 96 98 Oximetry 03/15/21 03/15/21 03/15/21 00:00 00:26 00:30 Temperature 97.8 F Pulse Rate 85 114 H 105 H Pulse Rate [ Bilateral Throughout] Respiratory 17 20 Rate Respiratory Rate [Bilateral Throughout] Blood Pressure 101/46 109/56 112/55 O2 Sat by Pulse 89 100 Oximetry 03/15/21 03/15/21 03/15/21 01:00 01:30 02:00 Temperature Pulse Rate 87 87 97 H Pulse Rate [ Bilateral Throughout] Respiratory 20 18 17 Rate Respiratory Rate [Bilateral Throughout] Blood Pressure 101/46 101/46 156/58 O2 Sat by Pulse 100 100 98 Oximetry 03/15/21 03/15/21 03/15/21 02:30 03:00 03:30 Temperature Pulse Rate 87 84 87 Pulse Rate [ Bilateral Throughout] Respiratory 18 18 17 Rate Respiratory Rate [Bilateral Throughout] Blood Pressure 156/58 129/56 129/56 O2 Sat by Pulse 98 98 98 Oximetry 03/15/21 03/15/21 03/15/21 04:00 04:30 05:00 Temperature 98.6 F Pulse Rate 106 H 112 H 87 Pulse Rate [ Bilateral Throughout] Respiratory 21 20 19 Rate Respiratory Rate [Bilateral Throughout] Blood Pressure 129/56 129/56 117/54 O2 Sat by Pulse 92 93 98 Oximetry 03/15/21 03/15/21 03/15/21 05:20 05:30 05:57 Temperature Pulse Rate 95 H 110 H Pulse Rate [ Bilateral Throughout] Respiratory 19 Rate Respiratory Rate [Bilateral Throughout] Blood Pressure 117/54 117/54 O2 Sat by Pulse 100 95 Oximetry 03/15/21 03/15/21 03/15/21 06:00 07:38 08:38 Temperature 98.3 F Pulse Rate 109 H Pulse Rate [ 107 H Bilateral Throughout] Respiratory 22 Rate Respiratory 24 Rate [Bilateral Throughout] Blood Pressure 163/65 O2 Sat by Pulse 93 94 Oximetry Constitutional: lethargic, other (but arousable) Eyes: non-icteric ENT: other (orally intubated and sedated.) Neck: supple Effort: normal Ascultation: Bilateral: diminished breath sounds Cardiovascular: regular rate and rhythm Gastrointestinal: normoactive bowel sounds, soft Extremities: no edema, pink and warm Neurologic: unable to assess CBC and BMP: 03/15/21 04:00 03/15/21 04:00 ABG, PT/INR, D-dimer: ABG ABG pH 7.294 (7.320-7.450) L 03/14/21 10:24 POC ABG pCO2 69.4 mmHg (32.0-48.0) H 03/14/21 10:24 ABG pCO2 43.0 mm Hg 03/08/21 15:12 POC ABG pO2 128.0 mmHg (83-108) H 03/14/21 10:24 ABG pO2 381.9 mm Hg (80.0-90.0) H 03/08/21 15:12 POC ABG HCO3 32.9 03/14/21 10:24 ABG O2 Saturation 97.6 (0-100) 03/14/21 10:24 PT/INR, D-dimer PT 14.6 Sec. (12.2-14.9) 03/11/21 21:50 INR 1.09 (0.87-1.13) 03/11/21 21:50 D-Dimer 832.06 ng/mlDDU (0-234) H 03/08/21 15:49 Abnormal lab findings: Abnormal Labs 03/08/21 03/08/21 03/08/21 15:12 15:49 15:49 WBC RBC Hgb Hct MCV 95 H RDW 12.8 L Plt Count Lymph % (Auto) 5.1 L [place] % (Auto) 8.6 H Lymph # (Auto) 0.4 L [place] # (Auto) Seg Neutrophils % 86.1 H Seg Neuts % (Manual) Lymphocytes % (Manual) Seg Neutrophils # Seg Neutrophils # Man Lymphocytes # (Manual) APTT 37.1 H D-Dimer 832.06 H ABG pH 7.478 H POC ABG pCO2 POC ABG pO2 ABG pO2 381.9 H ABG HCO3 31.2 H ABG O2 Saturation 99.6 H ABG Base Excess 6.9 H ABG Hemoglobin 13.0 L ABG Oxyhemoglobin ABG Sodium ABG Potassium ABG Chloride ABG Glucose Carboxyhemoglobin Sodium Potassium Chloride Carbon Dioxide BUN Creatinine Glucose POC Glucose Lactic Acid Calcium Phosphorus Magnesium Ferritin AST Ammonia Lactate Dehydrogenase Total Creatine Kinase CK-MB (CK-2) CK-MB (CK-2) Rel Index Troponin T C-Reactive Protein Total Protein Albumin Prealbumin Triglycerides HDL Cholesterol Arterial Blood Glucose Arterial Blood Ionized Calcium Acetaminophen Crossmatch 03/08/21 03/08/21 03/08/21 15:49 15:49 15:49 WBC RBC Hgb Hct MCV RDW Plt Count Lymph % (Auto) [place] % (Auto) Lymph # (Auto) [place] # (Auto) Seg Neutrophils % Seg Neuts % (Manual) Lymphocytes % (Manual) Seg Neutrophils # Seg Neutrophils # Man Lymphocytes # (Manual) APTT D-Dimer ABG pH POC ABG pCO2 POC ABG pO2 ABG pO2 ABG HCO3 ABG O2 Saturation ABG Base Excess ABG Hemoglobin ABG Oxyhemoglobin ABG Sodium ABG Potassium ABG Chloride ABG Glucose Carboxyhemoglobin Sodium 134 L Potassium Chloride 89.7 L Carbon Dioxide 32 H BUN 47 H Creatinine Glucose 150 H POC Glucose Lactic Acid Calcium Phosphorus Magnesium Ferritin AST Ammonia 22.0 L Lactate Dehydrogenase Total Creatine Kinase 52 L CK-MB (CK-2) CK-MB (CK-2) Rel Index Troponin T C-Reactive Protein Total Protein Albumin 3.2 L Prealbumin Triglycerides HDL Cholesterol Arterial Blood Glucose Arterial Blood Ionized Calcium Acetaminophen Crossmatch 03/08/21 03/08/21 03/08/21 15:49 15:49 15:49 WBC RBC Hgb Hct MCV RDW Plt Count Lymph % (Auto) [place] % (Auto) Lymph # (Auto) [place] # (Auto) Seg Neutrophils % Seg Neuts % (Manual) Lymphocytes % (Manual) Seg Neutrophils # Seg Neutrophils # Man Lymphocytes # (Manual) APTT D-Dimer ABG pH POC ABG pCO2 POC ABG pO2 ABG pO2 ABG HCO3 ABG O2 Saturation ABG Base Excess ABG Hemoglobin ABG Oxyhemoglobin ABG Sodium ABG Potassium ABG Chloride ABG Glucose Carboxyhemoglobin Sodium Potassium Chloride Carbon Dioxide BUN Creatinine Glucose 150 H POC Glucose Lactic Acid 3.40 H* Calcium Phosphorus Magnesium Ferritin AST Ammonia Lactate Dehydrogenase 209 H Total Creatine Kinase CK-MB (CK-2) CK-MB (CK-2) Rel Index Troponin T C-Reactive Protein 24.00 H Total Protein Albumin Prealbumin Triglycerides HDL Cholesterol Arterial Blood Glucose Arterial Blood Ionized Calcium Acetaminophen 5.0 L Crossmatch 03/08/21 03/08/21 03/09/21 15:49 23:27 00:00 WBC RBC Hgb Hct MCV RDW Plt Count Lymph % (Auto) [place] % (Auto) Lymph # (Auto) [place] # (Auto) Seg Neutrophils % Seg Neuts % (Manual) Lymphocytes % (Manual) Seg Neutrophils # Seg Neutrophils # Man Lymphocytes # (Manual) APTT D-Dimer ABG pH POC ABG pCO2 POC ABG pO2 ABG pO2 ABG HCO3 ABG O2 Saturation ABG Base Excess ABG Hemoglobin ABG Oxyhemoglobin ABG Sodium ABG Potassium ABG Chloride ABG Glucose Carboxyhemoglobin Sodium Potassium Chloride Carbon Dioxide BUN Creatinine Glucose POC Glucose 185 H Lactic Acid Calcium Phosphorus Magnesium Ferritin 1373.0 H AST Ammonia Lactate Dehydrogenase Total Creatine Kinase CK-MB (CK-2) CK-MB (CK-2) Rel Index Troponin T C-Reactive Protein Total Protein Albumin Prealbumin 0.058 L Triglycerides HDL Cholesterol Arterial Blood Glucose Arterial Blood Ionized Calcium Acetaminophen Crossmatch 03/09/21 03/09/21 03/09/21 05:11 06:18 06:18 WBC RBC 3.50 L Hgb 10.8 L Hct 32.8 L D MCV RDW 13.1 L Plt Count 111 L Lymph % (Auto) 9.9 L [place] % (Auto) 9.2 H Lymph # (Auto) 0.5 L [place] # (Auto) Seg Neutrophils % 80.4 H Seg Neuts % (Manual) Lymphocytes % (Manual) Seg Neutrophils # Seg Neutrophils # Man Lymphocytes # (Manual) APTT D-Dimer ABG pH POC ABG pCO2 POC ABG pO2 ABG pO2 ABG HCO3 ABG O2 Saturation ABG Base Excess ABG Hemoglobin ABG Oxyhemoglobin ABG Sodium ABG Potassium ABG Chloride ABG Glucose Carboxyhemoglobin Sodium 135 L Potassium 5.3 H Chloride Carbon Dioxide BUN 46 H Creatinine Glucose 178 H POC Glucose 183 H Lactic Acid Calcium 8.2 L Phosphorus Magnesium Ferritin AST Ammonia Lactate Dehydrogenase Total Creatine Kinase CK-MB (CK-2) CK-MB (CK-2) Rel Index Troponin T C-Reactive Protein Total Protein 6.1 L Albumin 2.4 L Prealbumin Triglycerides HDL Cholesterol Arterial Blood Glucose Arterial Blood Ionized Calcium Acetaminophen Crossmatch 03/09/21 03/09/21 03/09/21 07:40 11:39 18:09 WBC RBC Hgb Hct MCV RDW Plt Count Lymph % (Auto) [place] % (Auto) Lymph # (Auto) [place] # (Auto) Seg Neutrophils % Seg Neuts % (Manual) Lymphocytes % (Manual) Seg Neutrophils # Seg Neutrophils # Man Lymphocytes # (Manual) APTT D-Dimer ABG pH 7.485 H POC ABG pCO2 POC ABG pO2 179.1 H ABG pO2 ABG HCO3 ABG O2 Saturation ABG Base Excess ABG Hemoglobin 10.8 L ABG Oxyhemoglobin 99.1 H ABG Sodium 133.2 L ABG Potassium ABG Chloride ABG Glucose 175 H Carboxyhemoglobin 0 L Sodium Potassium Chloride Carbon Dioxide BUN Creatinine Glucose POC Glucose 165 H 167 H Lactic Acid Calcium Phosphorus Magnesium Ferritin AST Ammonia Lactate Dehydrogenase Total Creatine Kinase CK-MB (CK-2) CK-MB (CK-2) Rel Index Troponin T C-Reactive Protein Total Protein Albumin Prealbumin Triglycerides HDL Cholesterol Arterial Blood Glucose 175 H Arterial Blood Ionized Calcium 4.3 L Acetaminophen Crossmatch 03/09/21 03/10/21 03/10/21 23:53 02:59 05:14 WBC 12.0 H RBC Hgb 11.7 L Hct MCV 95 H RDW Plt Count Lymph % (Auto) 2.6 L [place] % (Auto) 7.5 H Lymph # (Auto) 0.3 L [place] # (Auto) 0.9 H Seg Neutrophils % 89.8 H Seg Neuts % (Manual) Lymphocytes % (Manual) Seg Neutrophils # 10.8 H Seg Neutrophils # Man Lymphocytes # (Manual) APTT D-Dimer ABG pH POC ABG pCO2 POC ABG pO2 ABG pO2 ABG HCO3 ABG O2 Saturation ABG Base Excess ABG Hemoglobin 11.9 L ABG Oxyhemoglobin ABG Sodium ABG Potassium ABG Chloride 108.0 H ABG Glucose 232 H Carboxyhemoglobin 0.3 L Sodium Potassium Chloride Carbon Dioxide BUN Creatinine Glucose POC Glucose 210 H Lactic Acid Calcium Phosphorus Magnesium Ferritin AST Ammonia Lactate Dehydrogenase Total Creatine Kinase CK-MB (CK-2) CK-MB (CK-2) Rel Index Troponin T C-Reactive Protein Total Protein Albumin Prealbumin Triglycerides HDL Cholesterol Arterial Blood Glucose 232 H Arterial Blood Ionized Calcium 4.4 L Acetaminophen Crossmatch 03/10/21 03/10/21 03/10/21 05:14 05:14 05:14 WBC RBC Hgb Hct MCV RDW Plt Count Lymph % (Auto) [place] % (Auto) Lymph # (Auto) [place] # (Auto) Seg Neutrophils % Seg Neuts % (Manual) Lymphocytes % (Manual) Seg Neutrophils # Seg Neutrophils # Man Lymphocytes # (Manual) APTT D-Dimer ABG pH POC ABG pCO2 POC ABG pO2 ABG pO2 ABG HCO3 ABG O2 Saturation ABG Base Excess ABG Hemoglobin ABG Oxyhemoglobin ABG Sodium ABG Potassium ABG Chloride ABG Glucose Carboxyhemoglobin Sodium Potassium Chloride 107.2 H Carbon Dioxide BUN 48 H Creatinine Glucose 218 H POC Glucose Lactic Acid Calcium 7.9 L Phosphorus Magnesium Ferritin AST 41 H Ammonia Lactate Dehydrogenase Total Creatine Kinase CK-MB (CK-2) 17.8 H CK-MB (CK-2) Rel Index 18.1 H Troponin T 0.798 H* C-Reactive Protein Total Protein 5.7 L Albumin 2.7 L Prealbumin Triglycerides 173 H HDL Cholesterol 36 L Arterial Blood Glucose Arterial Blood Ionized Calcium Acetaminophen Crossmatch 03/10/21 03/10/21 03/10/21 05:35 11:43 18:17 WBC RBC Hgb Hct MCV RDW Plt Count Lymph % (Auto) [place] % (Auto) Lymph # (Auto) [place] # (Auto) Seg Neutrophils % Seg Neuts % (Manual) Lymphocytes % (Manual) Seg Neutrophils # Seg Neutrophils # Man Lymphocytes # (Manual) APTT D-Dimer ABG pH POC ABG pCO2 POC ABG pO2 ABG pO2 ABG HCO3 ABG O2 Saturation ABG Base Excess ABG Hemoglobin ABG Oxyhemoglobin ABG Sodium ABG Potassium ABG Chloride ABG Glucose Carboxyhemoglobin Sodium Potassium Chloride Carbon Dioxide BUN Creatinine Glucose POC Glucose 210 H 221 H 120 H Lactic Acid Calcium Phosphorus Magnesium Ferritin AST Ammonia Lactate Dehydrogenase Total Creatine Kinase CK-MB (CK-2) CK-MB (CK-2) Rel Index Troponin T C-Reactive Protein Total Protein Albumin Prealbumin Triglycerides HDL Cholesterol Arterial Blood Glucose Arterial Blood Ionized Calcium Acetaminophen Crossmatch 03/10/21 03/11/21 03/11/21 18:40 00:44 08:00 WBC RBC Hgb Hct MCV RDW Plt Count Lymph % (Auto) [place] % (Auto) Lymph # (Auto) [place] # (Auto) Seg Neutrophils % Seg Neuts % (Manual) Lymphocytes % (Manual) Seg Neutrophils # Seg Neutrophils # Man Lymphocytes # (Manual) APTT D-Dimer ABG pH POC ABG pCO2 POC ABG pO2 ABG pO2 ABG HCO3 ABG O2 Saturation ABG Base Excess ABG Hemoglobin ABG Oxyhemoglobin ABG Sodium ABG Potassium ABG Chloride ABG Glucose Carboxyhemoglobin Sodium Potassium Chloride Carbon Dioxide BUN Creatinine Glucose POC Glucose Lactic Acid Calcium Phosphorus Magnesium Ferritin AST Ammonia Lactate Dehydrogenase Total Creatine Kinase CK-MB (CK-2) CK-MB (CK-2) Rel Index Troponin T 0.477 H* D 0.430 H* 0.363 H* C-Reactive Protein Total Protein Albumin Prealbumin Triglycerides HDL Cholesterol Arterial Blood Glucose Arterial Blood Ionized Calcium Acetaminophen Crossmatch 03/11/21 03/11/21 03/11/21 08:00 08:00 11:26 WBC 14.7 H RBC 3.62 L Hgb 11.3 L Hct 34.4 L MCV 95 H RDW Plt Count Lymph % (Auto) [place] % (Auto) Lymph # (Auto) [place] # (Auto) Seg Neutrophils % Seg Neuts % (Manual) Lymphocytes % (Manual) Seg Neutrophils # Seg Neutrophils # Man Lymphocytes # (Manual) APTT D-Dimer ABG pH POC ABG pCO2 POC ABG pO2 ABG pO2 ABG HCO3 ABG O2 Saturation ABG Base Excess ABG Hemoglobin ABG Oxyhemoglobin ABG Sodium ABG Potassium ABG Chloride ABG Glucose Carboxyhemoglobin Sodium Potassium Chloride Carbon Dioxide BUN 34 H Creatinine Glucose 167 H POC Glucose 157 H Lactic Acid Calcium Phosphorus 2.40 L Magnesium 2.40 H Ferritin AST Ammonia Lactate Dehydrogenase Total Creatine Kinase CK-MB (CK-2) CK-MB (CK-2) Rel Index Troponin T C-Reactive Protein Total Protein 6.1 L Albumin 2.7 L Prealbumin Triglycerides HDL Cholesterol Arterial Blood Glucose Arterial Blood Ionized Calcium Acetaminophen Crossmatch 03/11/21 03/11/21 03/12/21 17:31 21:50 03:05 WBC RBC Hgb 10.7 L Hct 33.6 L MCV RDW Plt Count Lymph % (Auto) [place] % (Auto) Lymph # (Auto) [place] # (Auto) Seg Neutrophils % Seg Neuts % (Manual) Lymphocytes % (Manual) Seg Neutrophils # Seg Neutrophils # Man Lymphocytes # (Manual) APTT D-Dimer ABG pH POC ABG pCO2 POC ABG pO2 ABG pO2 ABG HCO3 ABG O2 Saturation ABG Base Excess ABG Hemoglobin ABG Oxyhemoglobin ABG Sodium ABG Potassium ABG Chloride ABG Glucose Carboxyhemoglobin Sodium Potassium Chloride Carbon Dioxide BUN Creatinine Glucose POC Glucose 154 H 139 H Lactic Acid Calcium Phosphorus Magnesium Ferritin AST Ammonia Lactate Dehydrogenase Total Creatine Kinase CK-MB (CK-2) CK-MB (CK-2) Rel Index Troponin T C-Reactive Protein Total Protein Albumin Prealbumin Triglycerides HDL Cholesterol Arterial Blood Glucose Arterial Blood Ionized Calcium Acetaminophen Crossmatch 03/12/21 03/12/21 03/12/21 04:40 04:40 06:03 WBC 11.6 H RBC 3.28 L Hgb 10.3 L Hct 31.3 L MCV 96 H RDW Plt Count Lymph % (Auto) [place] % (Auto) Lymph # (Auto) [place] # (Auto) Seg Neutrophils % Seg Neuts % (Manual) 92.0 H Lymphocytes % (Manual) 3.0 L Seg Neutrophils # Seg Neutrophils # Man 10.7 H Lymphocytes # (Manual) 0.3 L APTT D-Dimer ABG pH POC ABG pCO2 POC ABG pO2 ABG pO2 ABG HCO3 ABG O2 Saturation ABG Base Excess ABG Hemoglobin ABG Oxyhemoglobin ABG Sodium ABG Potassium ABG Chloride ABG Glucose Carboxyhemoglobin Sodium Potassium Chloride 108.7 H Carbon Dioxide BUN 28 H Creatinine Glucose 137 H POC Glucose 137 H Lactic Acid Calcium 8.2 L Phosphorus Magnesium Ferritin AST Ammonia Lactate Dehydrogenase Total Creatine Kinase CK-MB (CK-2) CK-MB (CK-2) Rel Index Troponin T 0.261 H* D C-Reactive Protein Total Protein Albumin Prealbumin Triglycerides HDL Cholesterol Arterial Blood Glucose Arterial Blood Ionized Calcium Acetaminophen Crossmatch 03/12/21 03/12/21 03/13/21 14:17 17:28 04:09 WBC RBC Hgb 9.1 L Hct 27.7 L MCV RDW Plt Count Lymph % (Auto) [place] % (Auto) Lymph # (Auto) [place] # (Auto) Seg Neutrophils % Seg Neuts % (Manual) Lymphocytes % (Manual) Seg Neutrophils # Seg Neutrophils # Man Lymphocytes # (Manual) APTT D-Dimer ABG pH POC ABG pCO2 POC ABG pO2 ABG pO2 ABG HCO3 ABG O2 Saturation ABG Base Excess ABG Hemoglobin ABG Oxyhemoglobin ABG Sodium ABG Potassium ABG Chloride ABG Glucose Carboxyhemoglobin Sodium Potassium Chloride Carbon Dioxide BUN Creatinine Glucose POC Glucose 165 H 111 H Lactic Acid Calcium Phosphorus Magnesium Ferritin AST Ammonia Lactate Dehydrogenase Total Creatine Kinase CK-MB (CK-2) CK-MB (CK-2) Rel Index Troponin T C-Reactive Protein Total Protein Albumin Prealbumin Triglycerides HDL Cholesterol Arterial Blood Glucose Arterial Blood Ionized Calcium Acetaminophen Crossmatch 03/13/21 03/13/21 03/13/21 05:04 11:28 14:25 WBC RBC Hgb 6.7 L Hct 19.7 L* D MCV RDW Plt Count Lymph % (Auto) [place] % (Auto) Lymph # (Auto) [place] # (Auto) Seg Neutrophils % Seg Neuts % (Manual) Lymphocytes % (Manual) Seg Neutrophils # Seg Neutrophils # Man Lymphocytes # (Manual) APTT D-Dimer ABG pH POC ABG pCO2 POC ABG pO2 ABG pO2 ABG HCO3 ABG O2 Saturation ABG Base Excess ABG Hemoglobin ABG Oxyhemoglobin ABG Sodium ABG Potassium ABG Chloride ABG Glucose Carboxyhemoglobin Sodium Potassium Chloride Carbon Dioxide BUN Creatinine Glucose POC Glucose 113 H 148 H Lactic Acid Calcium Phosphorus Magnesium Ferritin AST Ammonia Lactate Dehydrogenase Total Creatine Kinase CK-MB (CK-2) CK-MB (CK-2) Rel Index Troponin T C-Reactive Protein Total Protein Albumin Prealbumin Triglycerides HDL Cholesterol Arterial Blood Glucose Arterial Blood Ionized Calcium Acetaminophen Crossmatch 03/13/21 03/13/21 03/13/21 15:22 17:25 19:16 WBC RBC Hgb Hct MCV RDW Plt Count Lymph % (Auto) [place] % (Auto) Lymph # (Auto) [place] # (Auto) Seg Neutrophils % Seg Neuts % (Manual) Lymphocytes % (Manual) Seg Neutrophils # Seg Neutrophils # Man Lymphocytes # (Manual) APTT D-Dimer ABG pH 7.174 L POC ABG pCO2 POC ABG pO2 78.7 L ABG pO2 ABG HCO3 ABG O2 Saturation ABG Base Excess ABG Hemoglobin 5.5 L ABG Oxyhemoglobin 88.8 L ABG Sodium 135.1 L ABG Potassium 5.2 H ABG Chloride 109.0 H ABG Glucose 96 H Carboxyhemoglobin Sodium Potassium Chloride Carbon Dioxide BUN Creatinine Glucose POC Glucose 47 L Lactic Acid Calcium Phosphorus Magnesium Ferritin AST Ammonia Lactate Dehydrogenase Total Creatine Kinase CK-MB (CK-2) CK-MB (CK-2) Rel Index Troponin T C-Reactive Protein Total Protein Albumin Prealbumin Triglycerides HDL Cholesterol Arterial Blood Glucose 96 H Arterial Blood Ionized Calcium 4.4 L Acetaminophen Crossmatch See Detail 03/13/21 03/13/21 03/13/21 20:06 20:16 20:24 WBC RBC Hgb 8.1 L Hct 24.1 L MCV RDW Plt Count Lymph % (Auto) [place] % (Auto) Lymph # (Auto) [place] # (Auto) Seg Neutrophils % Seg Neuts % (Manual) Lymphocytes % (Manual) Seg Neutrophils # Seg Neutrophils # Man Lymphocytes # (Manual) APTT D-Dimer ABG pH 7.094 L POC ABG pCO2 64.0 H POC ABG pO2 68.2 L ABG pO2 ABG HCO3 ABG O2 Saturation ABG Base Excess ABG Hemoglobin 7.9 L ABG Oxyhemoglobin 84.6 L ABG Sodium ABG Potassium 4.9 H ABG Chloride ABG Glucose 220 H Carboxyhemoglobin Sodium Potassium Chloride Carbon Dioxide BUN Creatinine Glucose POC Glucose 188 H Lactic Acid Calcium Phosphorus Magnesium Ferritin AST Ammonia Lactate Dehydrogenase Total Creatine Kinase CK-MB (CK-2) CK-MB (CK-2) Rel Index Troponin T C-Reactive Protein Total Protein Albumin Prealbumin Triglycerides HDL Cholesterol Arterial Blood Glucose 220 H Arterial Blood Ionized Calcium 4.1 L Acetaminophen Crossmatch 03/13/21 03/14/21 03/14/21 23:17 04:00 04:00 WBC 17.9 H RBC 2.55 L Hgb 7.8 L Hct 23.1 L MCV RDW Plt Count 111 L Lymph % (Auto) [place] % (Auto) Lymph # (Auto) [place] # (Auto) Seg Neutrophils % Seg Neuts % (Manual) 99.0 H Lymphocytes % (Manual) Seg Neutrophils # Seg Neutrophils # Man 17.7 H Lymphocytes # (Manual) 0.0 L APTT D-Dimer ABG pH POC ABG pCO2 POC ABG pO2 ABG pO2 ABG HCO3 ABG O2 Saturation ABG Base Excess ABG Hemoglobin ABG Oxyhemoglobin ABG Sodium ABG Potassium ABG Chloride ABG Glucose Carboxyhemoglobin Sodium Potassium Chloride Carbon Dioxide 35 H BUN 48 H Creatinine 1.7 H D Glucose 258 H POC Glucose 244 H Lactic Acid Calcium 7.2 L Phosphorus Magnesium Ferritin AST Ammonia Lactate Dehydrogenase Total Creatine Kinase CK-MB (CK-2) CK-MB (CK-2) Rel Index Troponin T C-Reactive Protein Total Protein Albumin Prealbumin Triglycerides HDL Cholesterol Arterial Blood Glucose Arterial Blood Ionized Calcium Acetaminophen Crossmatch 03/14/21 03/14/21 03/14/21 05:15 10:24 14:54 WBC RBC Hgb 8.3 L Hct 24.1 L MCV RDW Plt Count Lymph % (Auto) [place] % (Auto) Lymph # (Auto) [place] # (Auto) Seg Neutrophils % Seg Neuts % (Manual) Lymphocytes % (Manual) Seg Neutrophils # Seg Neutrophils # Man Lymphocytes # (Manual) APTT D-Dimer ABG pH 7.294 L POC ABG pCO2 69.4 H POC ABG pO2 128.0 H ABG pO2 ABG HCO3 ABG O2 Saturation ABG Base Excess ABG Hemoglobin 10.2 L ABG Oxyhemoglobin ABG Sodium ABG Potassium ABG Chloride ABG Glucose 130 H Carboxyhemoglobin 0.3 L Sodium Potassium Chloride Carbon Dioxide BUN Creatinine Glucose POC Glucose 203 H Lactic Acid Calcium Phosphorus Magnesium Ferritin AST Ammonia Lactate Dehydrogenase Total Creatine Kinase CK-MB (CK-2) CK-MB (CK-2) Rel Index Troponin T C-Reactive Protein Total Protein Albumin Prealbumin Triglycerides HDL Cholesterol Arterial Blood Glucose 130 H Arterial Blood Ionized Calcium 4.1 L Acetaminophen Crossmatch 03/14/21 03/14/21 03/15/21 17:37 23:39 04:00 WBC RBC Hgb 8.0 L Hct 23.4 L MCV RDW Plt Count 119 L Lymph % (Auto) [place] % (Auto) Lymph # (Auto) [place] # (Auto) Seg Neutrophils % Seg Neuts % (Manual) Lymphocytes % (Manual) Seg Neutrophils # Seg Neutrophils # Man Lymphocytes # (Manual) APTT D-Dimer ABG pH POC ABG pCO2 POC ABG pO2 ABG pO2 ABG HCO3 ABG O2 Saturation ABG Base Excess ABG Hemoglobin ABG Oxyhemoglobin ABG Sodium ABG Potassium ABG Chloride ABG Glucose Carboxyhemoglobin Sodium Potassium Chloride Carbon Dioxide BUN Creatinine Glucose POC Glucose 110 H 112 H Lactic Acid Calcium Phosphorus Magnesium Ferritin AST Ammonia Lactate Dehydrogenase Total Creatine Kinase CK-MB (CK-2) CK-MB (CK-2) Rel Index Troponin T C-Reactive Protein Total Protein Albumin Prealbumin Triglycerides HDL Cholesterol Arterial Blood Glucose Arterial Blood Ionized Calcium Acetaminophen Crossmatch 03/15/21 03/15/21 04:00 05:54 WBC RBC Hgb Hct MCV RDW Plt Count Lymph % (Auto) [place] % (Auto) Lymph # (Auto) [place] # (Auto) Seg Neutrophils % Seg Neuts % (Manual) Lymphocytes % (Manual) Seg Neutrophils # Seg Neutrophils # Man Lymphocytes # (Manual) APTT D-Dimer ABG pH POC ABG pCO2 POC ABG pO2 ABG pO2 ABG HCO3 ABG O2 Saturation ABG Base Excess ABG Hemoglobin ABG Oxyhemoglobin ABG Sodium ABG Potassium ABG Chloride ABG Glucose Carboxyhemoglobin Sodium Potassium Chloride Carbon Dioxide 39 H BUN 41 H Creatinine 1.6 H Glucose 153 H POC Glucose 131 H Lactic Acid Calcium 7.0 L Phosphorus Magnesium Ferritin AST Ammonia Lactate Dehydrogenase Total Creatine Kinase CK-MB (CK-2) CK-MB (CK-2) Rel Index Troponin T C-Reactive Protein Total Protein Albumin Prealbumin Triglycerides HDL Cholesterol Arterial Blood Glucose Arterial Blood Ionized Calcium Acetaminophen Crossmatch Additional Studies: ct abd hematoma
[2021-03-15] MEDS: CLOPIDOGREL 75 MG TAB PO SCH ×2 (10:51→11:09)
[2021-03-15] MEDS: HEPARIN 5,000 UNIT/1 ML VIAL SUB-Q SCH ×2 (10:51→22:17)
[2021-03-15] MEDS: ASPIRIN 81 MG TAB CHEW PO SCH ×2 (10:51→11:10)
[2021-03-15] MEDS: AMIODARONE 200 MG TAB PO SCH ×2 (10:52→11:11)
[2021-03-15] MEDS ORDERED: DEXTROSE 50% IN WATER (25GM) 50 ML SYRINGE IV ONE (11:22)
--- NOTE | 2021-03-15 12:37 | Gastroenterology Progress Note ---
Assessment and Plan # GI bleed - per nursing, noted to have black stool on 03/13/2021. Heparin drip was held. Drop H/H to 6 and received blood transfusion. Hgb stable at 8. - CT showing moderate right iliopsoas hematoma. - suspect possible upper GI bleed as well given report of black stools with PUD in the setting of anticoagulation. - no BM overnight. No signs of active bleeding. rec - supportive care - cont with PPI IV - monitor H/H and for signs of bleeding. - patient not stable for respiratory standpoint for endoscopy at this time. - will follow. - Patient Problems (1) Anemia Current Visit: Yes Status: Chronic Qualifiers: Anemia type: unspecified type Qualified Code(s): D64.9 - Anemia, unspecified Subjective Date of service: 03/15/21 Principal diagnosis: Respiratory distress; Covid Positive Interval history: Patient continues to be drowsy. Response to painful stimuli. Per nursing, no BM overnight or this morning. Objective - Constitutional Vitals: Temp Pulse Resp BP Pulse Ox 98.3 F 100 H 18 162/57 90 03/15/21 07:38 03/15/21 12:00 03/15/21 12:00 03/15/21 12:00 03/15/21 12:00 General appearance: other (lethargic) - Respiratory Respiratory effort: labored - Cardiovascular Rhythm: regular Heart Sounds: Present: S1 & S2 - Gastrointestinal General gastrointestinal: Present: soft, non-tender, non-distended - Labs CBC & Chem 7: 03/15/21 04:00 03/15/21 11:40 Labs: Laboratory Results - last 24 hr 03/14/21 03/14/21 03/14/21 14:54 17:37 21:33 Hgb 8.3 L Hct 24.1 L Plt Count ABG pH POC ABG pCO2 POC ABG pO2 POC ABG HCO3 ABG O2 Saturation POC ABG Base Excess ABG Hemoglobin ABG Oxyhemoglobin ABG Methemoglobin ABG Sodium ABG Potassium ABG Chloride ABG Glucose Carboxyhemoglobin FiO2 % Sodium Potassium Chloride Carbon Dioxide Anion Gap BUN Creatinine Estimated GFR BUN/Creatinine Ratio Glucose POC Glucose 110 H 83 Calcium Arterial Blood Glucose Arterial Blood Ionized Calcium 03/14/21 03/15/21 03/15/21 23:39 04:00 04:00 Hgb 8.0 L Hct 23.4 L Plt Count 119 L ABG pH POC ABG pCO2 POC ABG pO2 POC ABG HCO3 ABG O2 Saturation POC ABG Base Excess ABG Hemoglobin ABG Oxyhemoglobin ABG Methemoglobin ABG Sodium ABG Potassium ABG Chloride ABG Glucose Carboxyhemoglobin FiO2 % Sodium 143 Potassium 3.8 Chloride 99.1 Carbon Dioxide 39 H Anion Gap 9 BUN 41 H Creatinine 1.6 H Estimated GFR 43 BUN/Creatinine Ratio 26 Glucose 153 H POC Glucose 112 H Calcium 7.0 L Arterial Blood Glucose Arterial Blood Ionized Calcium 03/15/21 03/15/21 03/15/21 05:54 10:32 11:19 Hgb Hct Plt Count ABG pH 7.376 POC ABG pCO2 71.5 H POC ABG pO2 106.1 POC ABG HCO3 41.0 ABG O2 Saturation 97.0 POC ABG Base Excess 14.0 ABG Hemoglobin 7.9 L ABG Oxyhemoglobin 96.0 ABG Methemoglobin 0.3 ABG Sodium 138.2 ABG Potassium 3.9 ABG Chloride 99.0 ABG Glucose 160 H Carboxyhemoglobin 0.7 FiO2 % 36.0 Sodium Potassium Chloride Carbon Dioxide Anion Gap BUN Creatinine Estimated GFR BUN/Creatinine Ratio Glucose POC Glucose 131 H 28 L Calcium Arterial Blood Glucose 160 H Arterial Blood Ionized Calcium 3.9 L 03/15/21 03/15/21 11:37 11:40 Hgb Hct Plt Count ABG pH POC ABG pCO2 POC ABG pO2 POC ABG HCO3 ABG O2 Saturation POC ABG Base Excess ABG Hemoglobin ABG Oxyhemoglobin ABG Methemoglobin ABG Sodium ABG Potassium ABG Chloride ABG Glucose Carboxyhemoglobin FiO2 % Sodium Potassium Chloride Carbon Dioxide Anion Gap BUN Creatinine Estimated GFR BUN/Creatinine Ratio Glucose 317 H POC Glucose 25 L Calcium Arterial Blood Glucose Arterial Blood Ionized Calcium - Imaging CT scan: report reviewed
--- NOTE | 2021-03-15 13:29 | Progress Note ---
Assessment and Plan 65-year-old male brought to hospital by EMS for altered mental status and respiratory failure. On EMS arrival patient had a temperature 102.3, severely hypoxic with diminished breath sounds in the left side and there was a concern for pneumothorax on the left side. EMS performed a decompression of the left hemothorax but Upon arrival to the emergency room EMS placed the chest tube/catheter became dislodged. Stat chest x-ray showed no obvious left-sided pneumothorax. Given altered mental status and respiratory failure with history of hypoxia patient was intubated by the ED physician. Code sepsis was called and the patient was admitted to ICU for further stabilization and Mx. He is neg for COVID x2. His hospital stay got complicated with STEMI and V. tach cardiac arrest. S/p cardiac cath with PCI to mid LAD by cardiology. following cardiac cath he developed right foot ischemia/cyanosis with cold extremity - placed on heparin drip. His h/h declined with black tarry stool x2 and CT abdomen suggesting of retroperitoneal/iliopsoas hematoma. Heparin drip has been discontinued, patient transfused 2 units of packed RBC, anticoagulation now on hold for severe blood loss anemia and thrombocytopenia. A/P: -s/p Vtech arrest on 03/10 Likely due to STEMI patient never lost pulse per medical chart but RR dropped 3-4 s/p ACLS with shock improved breathing and did not require reintubation, Placed on amiodarone -Acute anteriorlateral stemi s/p coronary intervention to the mid LAD, and successful implantation of the 3.0 x 15 mm drug-eluting stent. Cardiology following, s/p Aggrastat drip Initiated on aspirin statin and Plavix s/p Levophed drip, initiated on metoprolol --Right foot ischemia Noted after PCI pt with cold clammy foot Rt>Lt placed on low intensity heparin drip following Aggrastat drip per cardiology recommendation Vascular consulted and recommended further work-up when patient clinically more stable Heparin drip now off for profound anemia --Possible GI bleed Had bloody bowel movement yesterday and this morning, stopped heparin drip, cont on Protonix, transfused PRBC Consulted GI, monitor h/h --Acute systolic CHF with EF 35 to 40% Continue aspirin statin and Plavix, likely acute ischemic cardiomyopathy from STEMI Patient currently on pressor support, continue to monitor volume status -- Acute on chronic respiratory failure with hypoxia Patient on 2L O2 for COPD Patient intubated in the emergency room patient, s/p extubation patient intermittently on BIpap 03/08 CTA Chest: BL LL PNA noted, small left apical pneumo appreciated. COVID pcr negative x2 Nebulizers: Albuterol /budesonide scheduled. [employer] M[employer] following --Acute encephalopathy patient has underlying h/o vascular dementia Secondary to sepsis, high fever and hypoxia Patient initiated on IV antibiotics and vent support now extubated Possible aspiration pneumonia which cannot be ruled out CT head showed no acute infarct but extensive atherosclerotic disease with shanti cification --Cerebral atherosclerosis Continue aspirin statin and Plavix -- Sepsis with shock Patient with criteria for sepsis with elevated lactic acid Continue IV fluid and pressor support as needed -- Bilateral pneumonia Patient initiated on IV cefepime for 5 days ID consult requested Possible aspiration pneumonia also in the differential diagnosis -- Suspected COVID-19 virus infection, ruled out with 2 -ve test -- Hyponatremia Resolved with with gentle iv fluid -- Transaminitis Check acute hepatitis profile Possible secondary to underlying sepsis and hypotension -- Pneumothorax, left Small pneumothorax, s/p chest tube by EMS No intervention at this point per intencivist -- COPD with exacerbation chronic smoker nebulizer tx, supplemental O2 -- Hyperglycemia could be steroid induced Check A1c and coverage for now -- Anemia, acute on chronic Likely due to anticoagulation/retroperitoneal bleeding and possible GI bleed.- Transfused 2 units of packed RBC cont to monitor h/h --Thrombocytopenia, hold anticoagulation, if no improvement will consult hematology --Right iliopsoas hematoma Monitor H&H and consulted surgery --Severe acidosis: s/p bicarbonate drip -- DVT prophylaxis On heparin and GI prophylaxis The high probability of a clinically significant, sudden or life threatening deterioration of the system(s) required my full and direct attention, intervention and personal management. The aggregate critical care time was [35] minutes. This time is in addition to time spent performing reported procedures but includes the following: [x] Data Review and interpretation [x] Patient assessment and monitoring of vital signs [x] Documentation [x] Medication orders and management Daily clinical course 03/09: Hypotensive in AM, Dr. Inman placed right IJ CVC. Patient intiated on pressors. UOP 200 cc overnight. 03/10: Planned for extubation today, repeat covid test pending. RN called for elevated trop - ordered serial trop, ekg, 2d echo, aspirin, statin and placed cardiology consult. will cont to follow clinically, pt remains on levophed 03/11: Patient had Vtech cardiac arrest last night. EKG showed acute STEMI. placed on amioderone and heparin drip. S/p PCI today with stent placement, discontinued heparin drip and started on Aggrastat. Patient now noted with cold bluish LE right>left. Discussed with Dr Armstrong and recommended to initiate low intensity heparin drip after sheath was removed. Placed order and discussed the plan with nurse and pharmacy. Ordered stat lower extremity arterial Doppler and consulted vascular surgeon. Patient remains on Ventimask with 10 to 15 L of O2. Patient also remains confused, continue supportive care and follow clinically. 03/12/21: LE remain clod and cyanotic, R> L. cont heparin drip, monitor h/h. vascular procedure when clinically more stable. discussed with daughter and upd ated with all clinical details. pt remains on pressor. critically ill. 03/13/21; Patient had bloody BM this am. stop heparin, start protonix IV BID. follow h/h, cont pressor, transfuse 2units PRBC. mental status declined - remains agitated and restrained. Requiring pressor support. Ordered for CT abdomen pelvis for profound anemia. platient was placed on bicarbonate drip for severe acidosis. pulled out first central line, new rIJ placed 03/14/21: CT abdomen pelvis suggestive of moderate right iliopsoas hematoma, continue to follow H&H and consult general surgery. pt on BIPAP today, h/h stable. hold ACEI/spiranolactone for GAURAV. d/c bicarbonate drip as pt becoming alkalotic. patient remains confused and agitated - on restraint 03/15/21: patient on 4L n/c today, remains lethargic, H&H stable after 2 units of packed RBC on 03/13. Remains off anticoagulation due to low platelets. Very poor prognosis, vascular following for retroperitoneal hematoma. GI recommended medical management for now possible GI bleed. Per GI patient is not stable from respiratory standpoint for endoscopy. Extremely poor prognosis, will update family. Continue to monitor clinically Subjective Date of service: 03/15/21 Principal diagnosis: Respiratory distress; Covid Positive Interval history: Patient seen and examined Patient on n/c, off pressor Discussed with RN, vitals noted Objective - Exam Narrative Exam: General appearance: confused, ill appearing lethargy elderly gentleman. Eyes: non-icteric ENT: other (on nasal cannula) Neck: supple, Respiratory: Bilateral: diminished breath sounds Cardiovascular: regular rate and rhythm Gastrointestinal: normoactive bowel sounds Extremities: no edema, cold and cyanotic foot rt>left Psych: unable to assess Neuro: moves extremities : Savage in place. - Constitutional Vitals: Vital Signs - 12hr 03/15/21 03/15/21 03/15/21 01:30 02:00 02:30 Temperature Pulse Rate 87 97 H 87 Pulse Rate [ Bilateral Throughout] Respiratory 18 17 18 Rate Respiratory Rate [Bilateral Throughout] Blood Pressure 101/46 156/58 156/58 O2 Sat by Pulse 100 98 98 Oximetry 03/15/21 03/15/21 03/15/21 03:00 03:30 04:00 Temperature 98.6 F Pulse Rate 84 87 106 H Pulse Rate [ Bilateral Throughout] Respiratory 18 17 21 Rate Respiratory Rate [Bilateral Throughout] Blood Pressure 129/56 129/56 129/56 O2 Sat by Pulse 98 98 92 Oximetry 03/15/21 03/15/21 03/15/21 04:30 05:00 05:20 Temperature Pulse Rate 112 H 87 Pulse Rate [ Bilateral Throughout] Respiratory 20 19 Rate Respiratory Rate [Bilateral Throughout] Blood Pressure 129/56 117/54 O2 Sat by Pulse 93 98 100 Oximetry 03/15/21 03/15/21 03/15/21 05:30 05:57 06:00 Temperature Pulse Rate 95 H 110 H 109 H Pulse Rate [ Bilateral Throughout] Respiratory 19 22 Rate Respiratory Rate [Bilateral Throughout] Blood Pressure 117/54 117/54 163/65 O2 Sat by Pulse 95 93 Oximetry 03/15/21 03/15/21 03/15/21 06:30 07:00 07:30 Temperature Pulse Rate 119 H 95 H 118 H Pulse Rate [ Bilateral Throughout] Respiratory 23 20 20 Rate Respiratory Rate [Bilateral Throughout] Blood Pressure 163/65 138/65 163/65 O2 Sat by Pulse 90 Oximetry 03/15/21 03/15/21 03/15/21 07:38 08:00 08:30 Temperature 98.3 F Pulse Rate 108 H 116 H Pulse Rate [ Bilateral Throughout] Respiratory 22 25 H Rate Respiratory Rate [Bilateral Throughout] Blood Pressure 154/66 154/66 O2 Sat by Pulse 90 Oximetry 03/15/21 03/15/21 03/15/21 08:38 09:00 09:30 Temperature Pulse Rate 117 H 97 H Pulse Rate [ 107 H Bilateral Throughout] Respiratory 25 H 16 Rate Respiratory 24 Rate [Bilateral Throughout] Blood Pressure 154/66 154/66 O2 Sat by Pulse 94 86 84 Oximetry 03/15/21 03/15/21 03/15/21 10:00 10:30 11:00 Temperature Pulse Rate 107 H 105 H 90 Pulse Rate [ Bilateral Throughout] Respiratory 23 20 16 Rate Respiratory Rate [Bilateral Throughout] Blood Pressure 174/69 174/69 162/57 O2 Sat by Pulse 85 91 Oximetry 03/15/21 03/15/21 11:30 12:00 Temperature Pulse Rate 98 H 100 H Pulse Rate [ Bilateral Throughout] Respiratory 17 18 Rate Respiratory Rate [Bilateral Throughout] Blood Pressure 162/57 162/57 O2 Sat by Pulse 89 90 Oximetry - Labs CBC & Chem 7: 03/16/21 09:53 03/15/21 11:40 Labs: Abnormal lab results 03/14/21 03/14/21 03/14/21 Range/Units 14:54 17:37 23:39 Hgb 8.3 L (11.8-15.2) gm/dl Hct 24.1 L (35.5-45.6) % Plt Count (140-440) K/mm3 POC ABG pCO2 (32.0-48.0) mmHg ABG Hemoglobin (12.0-17.5) ABG Glucose (65-95) mg/dL Carbon Dioxide (22-30) mmol/L BUN (9-20) mg/dL Creatinine (0.8-1.3) mg/dL Glucose (75-100) mg/dL POC Glucose 110 H 112 H (70-105) mg/dL Calcium (8.4-10.2) mg/dL Arterial Blood Glucose (65-95) mg/dL Arterial Blood Ionized Calcium (4.6-5.3) mg/dL 03/15/21 03/15/21 03/15/21 Range/Units 04:00 04:00 05:54 Hgb 8.0 L (11.8-15.2) gm/dl Hct 23.4 L (35.5-45.6) % Plt Count 119 L (140-440) K/mm3 POC ABG pCO2 (32.0-48.0) mmHg ABG Hemoglobin (12.0-17.5) ABG Glucose (65-95) mg/dL Carbon Dioxide 39 H (22-30) mmol/L BUN 41 H (9-20) mg/dL Creatinine 1.6 H (0.8-1.3) mg/dL Glucose 153 H (75-100) mg/dL POC Glucose 131 H (70-105) mg/dL Calcium 7.0 L (8.4-10.2) mg/dL Arterial Blood Glucose (65-95) mg/dL Arterial Blood Ionized Calcium (4.6-5.3) mg/dL 03/15/21 03/15/21 03/15/21 Range/Units 10:32 11:19 11:37 Hgb (11.8-15.2) gm/dl Hct (35.5-45.6) % Plt Count (140-440) K/mm3 POC ABG pCO2 71.5 H (32.0-48.0) mmHg ABG Hemoglobin 7.9 L (12.0-17.5) ABG Glucose 160 H (65-95) mg/dL Carbon Dioxide (22-30) mmol/L BUN (9-20) mg/dL Creatinine (0.8-1.3) mg/dL Glucose (75-100) mg/dL POC Glucose 28 L 25 L (70-105) mg/dL Calcium (8.4-10.2) mg/dL Arterial Blood Glucose 160 H (65-95) mg/dL Arterial Blood Ionized Calcium 3.9 L (4.6-5.3) mg/dL 03/15/21 03/15/21 Range/Units 11:40 12:33 Hgb (11.8-15.2) gm/dl Hct (35.5-45.6) % Plt Count (140-440) K/mm3 POC ABG pCO2 (32.0-48.0) mmHg ABG Hemoglobin (12.0-17.5) ABG Glucose (65-95) mg/dL Carbon Dioxide (22-30) mmol/L BUN (9-20) mg/dL Creatinine (0.8-1.3) mg/dL Glucose 317 H (75-100) mg/dL POC Glucose 145 H (70-105) mg/dL Calcium (8.4-10.2) mg/dL Arterial Blood Glucose (65-95) mg/dL Arterial Blood Ionized Calcium (4.6-5.3) mg/dL HEART Score - HEART Score Age: > 65 Risk factors: No known risk factors Troponin: Troponin T 0.261 ng/mL (0.00-0.029) H* D 03/12/21 04:40 Troponin: < normal limit - Critical Actions Critical Actions: 0-3 pts:0.9-1.7%risk of adverse cardiac event.Candidate for discharge
[2021-03-15] MEDS: METOPROLOL TARTRATE 5 MG/5 ML INJ IV SCH ×2 (14:26→20:00)
--- NOTE | 2021-03-15 14:30 | Progress Note ---
Assessment and Plan - Patient Problems (1) Acute myocardial infarction Current Visit: Yes Status: Acute Plan to address problem: We will switch metoprolol to intravenous, and switch isosorbide to Nitro-Dur. When patient is able to tolerate oral medications, we will start KVNG inhibitor or other afterload oral agent. Subjective Date of service: 03/15/21 Principal diagnosis: Respiratory distress; Covid Positive Interval history: Patient is lethargic, but breathing comfortably on room air. The nurse is concerned about aspiration risk due to his poor mental status. He remains in a stable sinus rhythm, and blood pressure is elevated at 150-160 systolic Objective Vital Signs Temp Pulse Pulse Resp Resp BP Pulse Ox 03/15/21 12:00 100 H 18 162/57 90 03/15/21 11:30 98 H 17 162/57 89 03/15/21 11:00 90 16 162/57 03/15/21 10:30 105 H 20 174/69 91 03/15/21 10:00 107 H 23 174/69 85 03/15/21 09:30 97 H 16 154/66 84 03/15/21 09:00 117 H 25 H 154/66 86 03/15/21 08:38 107 H 24 94 03/15/21 08:30 116 H 25 H 154/66 03/15/21 08:00 108 H 22 154/66 90 03/15/21 07:38 98.3 F 03/15/21 07:30 118 H 20 163/65 03/15/21 07:00 95 H 20 138/65 03/15/21 06:30 119 H 23 163/65 90 03/15/21 06:00 109 H 22 163/65 93 03/15/21 05:57 110 H 117/54 03/15/21 05:30 95 H 19 117/54 95 03/15/21 05:20 100 03/15/21 05:00 87 19 117/54 98 03/15/21 04:30 112 H 20 129/56 93 03/15/21 04:00 98.6 F 106 H 21 129/56 92 03/15/21 03:30 87 17 129/56 98 03/15/21 03:00 84 18 129/56 98 03/15/21 02:30 87 18 156/58 98 03/15/21 02:00 97 H 17 156/58 98 03/15/21 01:30 87 18 101/46 100 03/15/21 01:00 87 20 101/46 100 03/15/21 00:30 105 H 20 112/55 100 03/15/21 00:26 114 H 109/56 03/15/21 00:00 97.8 F 85 17 101/46 89 03/14/21 23:36 106 H 22 112/55 03/14/21 23:00 90 18 112/55 98 03/14/21 22:30 106 H 21 181/78 96 03/14/21 22:00 120 H 22 137/60 99 03/14/21 21:31 98 H 17 137/60 98 03/14/21 21:05 100 03/14/21 21:03 86 17 137/60 100 03/14/21 21:01 89 17 137/60 100 03/14/21 20:30 82 17 132/56 100 03/14/21 20:01 90 15 141/57 99 03/14/21 20:00 97.5 F L 03/14/21 19:30 85 17 112/51 97 03/14/21 19:17 22 03/14/21 19:00 94 H 18 140/61 98 03/14/21 18:31 100 H 19 140/62 51 L 03/14/21 18:01 96 H 22 95/67 03/14/21 18:00 96 H 100 03/14/21 17:31 138 H 16 95/67 03/14/21 17:01 98 H 20 149/78 03/14/21 17:00 98.5 F 03/14/21 16:31 98 H 20 109/65 03/14/21 16:01 103 H 17 152/56 83 L 03/14/21 15:31 107 H 17 98 03/14/21 15:01 87 15 52/22 03/14/21 14:31 100 H 21 103/63 96 - Physical Examination General: Other (Lethargic but no acute respiratory distress) HEENT: Positive: PERRL Neck: Positive: neck supple Cardiac: Positive: Reg Rate and Rhythm Lungs: Positive: Decreased Breath Sounds Neuro: Positive: Weakness Abdomen: Positive: Soft Skin: Positive: Clear Extremities: Absent: edema - Labs and Meds CBC 03/14/21 03/15/21 Range/Units 14:54 04:00 Hgb 8.3 L 8.0 L (11.8-15.2) gm/dl Hct 24.1 L 23.4 L (35.5-45.6) % Plt Count 119 L (140-440) K/mm3 Comprehensive Metabolic Panel 03/15/21 03/15/21 Range/Units 04:00 11:40 Sodium 143 (137-145) mmol/L Potassium 3.8 (3.6-5.0) mmol/L Chloride 99.1 (98-107) mmol/L Carbon Dioxide 39 H (22-30) mmol/L BUN 41 H (9-20) mg/dL Creatinine 1.6 H (0.8-1.3) mg/dL Glucose 153 H 317 H (75-100) mg/dL Calcium 7.0 L (8.4-10.2) mg/dL
[2021-03-15] MEDS: DEXTROSE 10% IN WATER 1,000 ML IV SCH (16:19)
--- NOTE | 2021-03-15 16:36 | Progress Note ---
Assessment and Plan 65-year-old male with cardiac issues requiring cardiac stenting with ischemic changes of the right foot. Patient continues to have ischemic changes of the right foot which is cooler compared to the left foot has some digital early changes of ischemia of the toes. Patient is severely altered making treatment of this not possible at this time given the multitude of his other medical issues. Nonpalpable pedal pulses bilaterally. Nonpalpable femoral pulses due to ecchymoses over the groin. Left-sided ecchymoses much more extensive than the right. Reviewed CT scan without contrast which demonstrated right sided retroperitoneal hematoma. The amount of blood in the psoas space would not be enough to decrease the hemoglobin by the drop that is seen. I will obtain an arterial ultrasound of the common femorals and iliacs of the lower extremities to evaluate for pseudoaneurysm. May require CT angiogram if this is negative. Patient has elevated creatinine making it reasonable to attempt an arterial ultrasound prior to the CT angiogram, because if positive, CT angiogram may not be required. Overall poor prognosis. Subjective Date of service: 03/15/21 Principal diagnosis: Respiratory distress; Covid Positive Interval history: Patient is altered and crawling into a position and nonresponsive. Has large ecchymoses of the groins, left side worse than right. Cannot palpate pseudoaneurysm, but do palpate hematoma. CT demonstrates right psoas retroperitoneal hematoma on prior CT scan. Objective - Constitutional Vitals: Vital Signs - 12hr 03/15/21 03/15/21 03/15/21 05:00 05:20 05:30 Temperature Pulse Rate 87 95 H Pulse Rate [ Bilateral Throughout] Respiratory 19 19 Rate Respiratory Rate [Bilateral Throughout] Blood Pressure 117/54 117/54 O2 Sat by Pulse 98 100 95 Oximetry 03/15/21 03/15/21 03/15/21 05:57 06:00 06:30 Temperature Pulse Rate 110 H 109 H 119 H Pulse Rate [ Bilateral Throughout] Respiratory 22 23 Rate Respiratory Rate [Bilateral Throughout] Blood Pressure 117/54 163/65 163/65 O2 Sat by Pulse 93 90 Oximetry 03/15/21 03/15/21 03/15/21 07:00 07:30 07:38 Temperature 98.3 F Pulse Rate 95 H 118 H Pulse Rate [ Bilateral Throughout] Respiratory 20 20 Rate Respiratory Rate [Bilateral Throughout] Blood Pressure 138/65 163/65 O2 Sat by Pulse Oximetry 03/15/21 03/15/21 03/15/21 08:00 08:30 08:38 Temperature Pulse Rate 108 H 116 H Pulse Rate [ 107 H Bilateral Throughout] Respiratory 22 25 H Rate Respiratory 24 Rate [Bilateral Throughout] Blood Pressure 154/66 154/66 O2 Sat by Pulse 90 94 Oximetry 03/15/21 03/15/21 03/15/21 09:00 09:30 10:00 Temperature Pulse Rate 117 H 97 H 107 H Pulse Rate [ Bilateral Throughout] Respiratory 25 H 16 23 Rate Respiratory Rate [Bilateral Throughout] Blood Pressure 154/66 154/66 174/69 O2 Sat by Pulse 86 84 85 Oximetry 03/15/21 03/15/21 03/15/21 10:30 11:00 11:30 Temperature Pulse Rate 105 H 90 98 H Pulse Rate [ Bilateral Throughout] Respiratory 20 16 17 Rate Respiratory Rate [Bilateral Throughout] Blood Pressure 174/69 162/57 162/57 O2 Sat by Pulse 91 89 Oximetry 03/15/21 03/15/21 12:00 14:26 Temperature Pulse Rate 100 H 90 Pulse Rate [ Bilateral Throughout] Respiratory 18 Rate Respiratory Rate [Bilateral Throughout] Blood Pressure 162/57 126/59 O2 Sat by Pulse 90 Oximetry General appearance: Present: other (Altered and confused) - Respiratory Respiratory effort: normal Extremities: abnormal (Please see subjective) - Gastrointestinal General gastrointestinal: Present: other (Altered, unable to determine pain) - Psychiatric Psychiatric: other (Altered) - Labs CBC & Chem 7: 03/15/21 04:00 03/15/21 11:40 Labs: Abnormal lab results 03/14/21 03/14/21 03/15/21 Range/Units 17:37 23:39 04:00 Hgb 8.0 L (11.8-15.2) gm/dl Hct 23.4 L (35.5-45.6) % Plt Count 119 L (140-440) K/mm3 POC ABG pCO2 (32.0-48.0) mmHg ABG Hemoglobin (12.0-17.5) ABG Glucose (65-95) mg/dL Carbon Dioxide (22-30) mmol/L BUN (9-20) mg/dL Creatinine (0.8-1.3) mg/dL Glucose (75-100) mg/dL POC Glucose 110 H 112 H (70-105) mg/dL Calcium (8.4-10.2) mg/dL Arterial Blood Glucose (65-95) mg/dL Arterial Blood Ionized Calcium (4.6-5.3) mg/dL 03/15/21 03/15/21 03/15/21 Range/Units 04:00 05:54 10:32 Hgb (11.8-15.2) gm/dl Hct (35.5-45.6) % Plt Count (140-440) K/mm3 POC ABG pCO2 71.5 H (32.0-48.0) mmHg ABG Hemoglobin 7.9 L (12.0-17.5) ABG Glucose 160 H (65-95) mg/dL Carbon Dioxide 39 H (22-30) mmol/L BUN 41 H (9-20) mg/dL Creatinine 1.6 H (0.8-1.3) mg/dL Glucose 153 H (75-100) mg/dL POC Glucose 131 H (70-105) mg/dL Calcium 7.0 L (8.4-10.2) mg/dL Arterial Blood Glucose 160 H (65-95) mg/dL Arterial Blood Ionized Calcium 3.9 L (4.6-5.3) mg/dL 03/15/21 03/15/21 03/15/21 Range/Units 11:19 11:37 11:40 Hgb (11.8-15.2) gm/dl Hct (35.5-45.6) % Plt Count (140-440) K/mm3 POC ABG pCO2 (32.0-48.0) mmHg ABG Hemoglobin (12.0-17.5) ABG Glucose (65-95) mg/dL Carbon Dioxide (22-30) mmol/L BUN (9-20) mg/dL Creatinine (0.8-1.3) mg/dL Glucose 317 H (75-100) mg/dL POC Glucose 28 L 25 L (70-105) mg/dL Calcium (8.4-10.2) mg/dL Arterial Blood Glucose (65-95) mg/dL Arterial Blood Ionized Calcium (4.6-5.3) mg/dL 03/15/21 Range/Units 12:33 Hgb (11.8-15.2) gm/dl Hct (35.5-45.6) % Plt Count (140-440) K/mm3 POC ABG pCO2 (32.0-48.0) mmHg ABG Hemoglobin (12.0-17.5) ABG Glucose (65-95) mg/dL Carbon Dioxide (22-30) mmol/L BUN (9-20) mg/dL Creatinine (0.8-1.3) mg/dL Glucose (75-100) mg/dL POC Glucose 145 H (70-105) mg/dL Calcium (8.4-10.2) mg/dL Arterial Blood Glucose (65-95) mg/dL Arterial Blood Ionized Calcium (4.6-5.3) mg/dL Medications & Allergies - Medications Allergies/Adverse Reactions: Allergies Unable to Assess Allergy (Verified 03/08/21 14:37) AMS Active Medications: Generic Name Dose Route Start Last Admin Trade Name Freq PRN Reason Stop Dose Admin Acetaminophen 650 mg 03/08/21 21:36 Acetaminophen 325 Mg Tab PO Q4H PRN Pain MILD(1-3)/Fever >100.5/MYERS Hydrocodone Bitart/Acetaminophen 1 each 03/11/21 13:59 Hydrocodone/Acetaminophen 5-325 Mg Tab PO Q6H PRN Pain, Moderate (4-6) Lipase/Protease/Amylase 1 each 03/08/21 21:42 Lipase 10,500/Protease 25,000/Amylase 43,750 (Units) Dr Johnson FEEDTUBE PRN PRN For Clogged Feeding Tube Arformoterol Tartrate 15 mcg 03/10/21 20:00 03/15/21 08:38 Arformoterol 15 Mcg/2 Ml Nebu IH 15 mcg Q12HRT PRINCESS Administration Aspirin 81 mg 03/10/21 15:00 03/15/21 11:10 Aspirin 81 Mg Tab Chew PO Not Given QDAY PRINCESS Atorvastatin Calcium 40 mg 03/11/21 22:00 03/14/21 21:11 Atorvastatin 40 Mg Tab PO Not Given QHS PRINCESS Budesonide 0.5 mg 03/09/21 20:00 03/15/21 08:38 Budesonide 0.5 Mg/2 Ml Nebu IH 0.5 mg Q12HRT PRINCESS Administration Clopidogrel Bisulfate 75 mg 03/12/21 10:00 03/15/21 11:09 Clopidogrel 75 Mg Tab PO Not Given QDAY PRINCESS Haloperidol Lactate 5 mg 03/13/21 11:15 08/06/21 11:28 Haloperidol Lactate 5 Mg/1 Ml Inj IV 5 mg Q6H PRN Administration Agitation Heparin Sodium (Porcine) 5,000 unit 03/13/21 22:00 03/15/21 10:51 Heparin 5,000 Unit/1 Ml Vial SUB-Q 5,000 unit Q12HR PRINCESS Administration Norepinephrine 4 mg in 250 mls @ 7.5 mls/hr 03/09/21 08:00 03/13/21 21:28 Levophed Drip 4 Mg/Ns 250 Ml IV 0 mcg/min TITR PRINCESS 0 mls/hr Titration Protocol 2 MCG/MIN Sodium Chloride 500 mls @ 5 mls/hr 03/13/21 12:00 Nacl 0.9% 500 Ml IV DIRECT PRINCESS Vasopressin 20 unit/ Sodium 101 mls @ 9.09 mls/hr 03/13/21 18:00 03/14/21 00:42 Chloride IV 0 units/min TITR PRINCESS 0 mls/hr Titration Protocol 0.03 UNITS/MIN Dextrose/Sodium Chloride 1,000 mls @ 42 mls/hr 03/14/21 18:00 03/14/21 18:58 D5ns IV 42 mls/hr DIRECT PRINCESS Administration Dextrose 1,000 mls @ 42 mls/hr 03/15/21 16:00 03/15/21 16:19 D10w IV 42 mls/hr DIRECT PRINCESS Administration Insulin Human Lispro 0 unit 03/10/21 12:00 03/15/21 12:35 Insulin Lispro 100 Unit/Ml SUB-Q Not Given Q6HR PRINCESS Protocol Lorazepam 1 mg 03/11/21 16:47 03/15/21 04:28 Lorazepam 2 Mg/Ml Vial IV 1 mg Q4H PRN Administration Agitation Lorazepam 0.5 mg 03/14/21 00:40 03/14/21 22:29 Lorazepam 2 Mg/Ml Vial IV 0.5 mg Q4H PRN Administration Agitation Methylprednisolone Sodium Succinate 40 mg 03/13/21 14:00 03/15/21 14:26 Methylprednisolone Sod Succinate 40 Mg/1 Ml Inj IV 40 mg Q8HR PRINCESS Administration Metoclopramide HCl 10 mg 03/08/21 21:36 Metoclopramide 10 Mg/2 Ml Inj IV Q6H PRN Nausea And Vomiting Metoprolol Tartrate 5 mg 03/15/21 14:00 03/15/21 14:26 Metoprolol Tartrate 5 Mg/5 Ml Inj IV 5 mg Q6H PRINCESS Administration Morphine Sulfate 1 mg 03/14/21 17:07 03/14/21 18:57 Morphine 2 Mg/1 Ml Inj IV 1 mg Q4H PRN Administration Pain, Moderate (4-6) Nitroglycerin 0.4 mg 03/16/21 06:00 Nitroglycerin 0.4 Mg Patch 24hr TD QDAY@0600 PRINCESS Ondansetron HCl 4 mg 03/08/21 21:36 Ondansetron 4 Mg/2 Ml Inj IV Q3H PRN Nausea And Vomiting Pantoprazole Sodium 40 mg 03/13/21 13:00 03/15/21 10:54 Pantoprazole 40 Mg Inj IV 40 mg BID PRINCESS Administration Simple Syrup 15 ml 03/08/21 21:42 Simple Syrup 15 Ml FEEDTUBE PRN PRN Hypoglycemia Simple Syrup 30 ml 03/08/21 21:42 Simple Syrup 15 Ml FEEDTUBE PRN PRN Hypoglycemia Sodium Bicarbonate 325 mg 03/08/21 21:42 Sodium Bicarbonate 325 Mg Tab FEEDTUBE PRN PRN For Clogged Feeding Tube Sodium Chloride 10 ml 03/08/21 22:00 03/15/21 10:51 Sodium Chloride 0.9% 10 Ml Flush Syringe IV 10 ml BID PRINCESS Administration Sodium Chloride 10 ml 03/08/21 21:36 03/15/21 04:28 Sodium Chloride 0.9% 10 Ml Flush Syringe IV 10 ml PRN PRN Administration LINE FLUSH HEART Score - HEART Score Age: > 65 Risk factors: No known risk factors Troponin: Troponin T 0.261 ng/mL (0.00-0.029) H* D 03/12/21 04:40 Troponin: < normal limit - Critical Actions Critical Actions: 0-3 pts:0.9-1.7%risk of adverse cardiac event.Candidate for d ischarge
[2021-03-15 20:30] LABS: Hematocrit 23.5 % (35.5-45.6)
[2021-03-15] MEDS ORDERED: SODIUM CHLORIDE 0.9% 500 ML 500 ML IV SCH (20:30)
[2021-03-16] MEDS: METOPROLOL TARTRATE 5 MG/5 ML INJ IV SCH ×3 (02:00→13:43)
[2021-03-16] MEDS: methylPREDNISolone Sod Succinate 40 MG/1 ML INJ IV SCH ×3 (05:16→21:28)
[2021-03-16] MEDS: NITROGLYCERIN 0.4 MG PATCH 24HR TD SCH (05:51)
[2021-03-16] MEDS ORDERED: DEXTROSE 50% IN WATER (25GM) 50 ML SYRINGE IV ONE (05:56)
[2021-03-16] MEDS: LORazepam 2 MG/ML VIAL IV PRN (07:36)
[2021-03-16] MEDS: INSULIN LISPRO 100 UNIT/ML SUB-Q SCH ×4 (07:36→17:17)
--- NOTE | 2021-03-16 08:06 | Progress Note ---
Assessment and Plan - Patient Problems (1) Acute respiratory acidosis Current Visit: Yes Status: Acute (2) Acute encephalopathy Current Visit: Yes Status: Acute (3) Acute myocardial infarction Current Visit: Yes Status: Acute (4) Acute respiratory failure with hypoxia Current Visit: Yes Status: Acute (5) Bilateral pneumonia Current Visit: Yes Status: Acute (6) Dehydration Current Visit: Yes Status: Acute (7) Sepsis Current Visit: Yes Status: Acute (8) Anemia Current Visit: Yes Status: Chronic Qualifiers: Anemia type: unspecified type Qualified Code(s): D64.9 - Anemia, unspecified (9) Hematoma Current Visit: Yes Status: Acute Subjective Principal diagnosis: Respiratory distress; Covid Positive Interval history: Events noted Pt asleep, arousable to tactile stimuli. Episodes of agitation Presently on Bipap Objective Vital Signs - 12hr 03/15/21 03/15/21 03/15/21 20:10 20:30 21:00 Temperature Pulse Rate 92 H 85 82 Respiratory 19 19 19 Rate Blood Pressure 116/75 147/51 O2 Sat by Pulse 86 99 100 Oximetry 03/15/21 03/15/21 03/15/21 21:30 22:00 22:20 Temperature Pulse Rate 101 H 89 85 Respiratory 21 18 20 Rate Blood Pressure 172/62 158/58 O2 Sat by Pulse 100 100 58 L Oximetry 03/15/21 03/15/21 03/15/21 22:30 23:00 23:30 Temperature Pulse Rate 84 94 H 85 Respiratory 17 19 16 Rate Blood Pressure 186/120 162/51 140/65 O2 Sat by Pulse 100 100 100 Oximetry 03/15/21 03/16/21 03/16/21 23:38 00:00 00:30 Temperature 97.6 F Pulse Rate 83 90 82 Respiratory 17 12 16 Rate Blood Pressure 140/65 170/46 153/58 O2 Sat by Pulse 100 100 100 Oximetry 03/16/21 03/16/21 03/16/21 00:35 01:00 01:20 Temperature Pulse Rate 82 88 90 Respiratory 16 18 20 Rate Blood Pressure 166/55 156/56 O2 Sat by Pulse 99 100 58 L Oximetry 03/16/21 03/16/21 03/16/21 01:30 02:00 02:30 Temperature Pulse Rate 92 H 59 L 90 Respiratory 19 18 16 Rate Blood Pressure 160/58 94/59 148/61 O2 Sat by Pulse 99 100 100 Oximetry 03/16/21 03/16/21 03/16/21 03:00 03:30 04:00 Temperature 97.7 F Pulse Rate 82 81 89 Respiratory 17 16 18 Rate Blood Pressure 141/51 134/65 147/57 O2 Sat by Pulse 100 100 100 Oximetry 03/16/21 03/16/21 03/16/21 04:15 04:30 05:00 Temperature Pulse Rate 101 H 101 H 77 Respiratory 20 20 18 Rate Blood Pressure 168/57 146/61 O2 Sat by Pulse 58 L 100 100 Oximetry 03/16/21 03/16/21 03/16/21 05:30 05:51 06:00 Temperature Pulse Rate 80 82 83 Respiratory 15 17 Rate Blood Pressure 147/60 146/61 147/60 O2 Sat by Pulse 100 100 Oximetry 03/16/21 03/16/21 03/16/21 06:30 07:00 07:30 Temperature Pulse Rate 84 78 77 Respiratory 17 15 16 Rate Blood Pressure 146/61 131/55 131/55 O2 Sat by Pulse 100 100 100 Oximetry 03/16/21 07:35 Temperature 99.1 F Pulse Rate Respiratory Rate Blood Pressure O2 Sat by Pulse Oximetry Constitutional: lethargic, other (but arousable) Eyes: non-icteric ENT: other (orally intubated and sedated.) Neck: supple Effort: normal Ascultation: Bilateral: diminished breath sounds Cardiovascular: regular rate and rhythm Gastrointestinal: normoactive bowel sounds, soft Extremities: no edema, pink and warm Neurologic: unable to assess CBC and BMP: 03/16/21 04:05 03/15/21 11:40 ABG, PT/INR, D-dimer: ABG ABG pH 7.430 (7.320-7.450) 03/15/21 20:05 POC ABG pCO2 63.7 mmHg (32.0-48.0) H 03/15/21 20:05 ABG pCO2 43.0 mm Hg 03/08/21 15:12 POC ABG pO2 43.1 mmHg (83-108) L 03/15/21 20:05 ABG pO2 381.9 mm Hg (80.0-90.0) H 03/08/21 15:12 POC ABG HCO3 41.3 03/15/21 20:05 ABG O2 Saturation 77.4 (0-100) 03/15/21 20:05 PT/INR, D-dimer PT 14.6 Sec. (12.2-14.9) 03/11/21 21:50 INR 1.09 (0.87-1.13) 03/11/21 21:50 D-Dimer 832.06 ng/mlDDU (0-234) H 03/08/21 15:49 Abnormal lab findings: Abnormal Labs 03/08/21 03/08/21 03/08/21 15:12 15:49 15:49 WBC RBC Hgb Hct MCV 95 H RDW 12.8 L Plt Count Lymph % (Auto) 5.[address] [place] % (Auto) 8.6 H Lymph # (Auto) 0.[address] [place] # (Auto) Seg Neutrophils % 86.1 H Seg Neuts % (Manual) Lymphocytes % (Manual) Seg Neutrophils # Seg Neutrophils # Man Lymphocytes # (Manual) APTT 37.1 H D-Dimer 832.06 H ABG pH 7.478 H POC ABG pCO2 POC ABG pO2 ABG pO2 381.9 H ABG HCO3 31.2 H ABG O2 Saturation 99.6 H ABG Base Excess 6.9 H ABG Hemoglobin 13.0 L ABG Oxyhemoglobin ABG Sodium ABG Potassium ABG Chloride ABG Glucose Carboxyhemoglobin Sodium Potassium Chloride Carbon Dioxide BUN Creatinine Glucose POC Glucose Lactic Acid Calcium Phosphorus Magnesium Ferritin AST Ammonia Lactate Dehydrogenase Total Creatine Kinase CK-MB (CK-2) CK-MB (CK-2) Rel Index Troponin T C-Reactive Protein Total Protein Albumin Prealbumin Triglycerides HDL Cholesterol Arterial Blood Glucose Arterial Blood Ionized Calcium Acetaminophen Crossmatch 03/08/21 03/08/21 03/08/21 15:49 15:49 15:49 WBC RBC Hgb Hct MCV RDW Plt Count Lymph % (Auto) [place] % (Auto) Lymph # (Auto) [place] # (Auto) Seg Neutrophils % Seg Neuts % (Manual) Lymphocytes % (Manual) Seg Neutrophils # Seg Neutrophils # Man Lymphocytes # (Manual) APTT D-Dimer ABG pH POC ABG pCO2 POC ABG pO2 ABG pO2 ABG HCO3 ABG O2 Saturation ABG Base Excess ABG Hemoglobin ABG Oxyhemoglobin ABG Sodium ABG Potassium ABG Chloride ABG Glucose Carboxyhemoglobin Sodium 134 L Potassium Chloride 89.7 L Carbon Dioxide 32 H BUN 47 H Creatinine Glucose 150 H POC Glucose Lactic Acid Calcium Phosphorus Magnesium Ferritin AST Ammonia 22.0 L Lactate Dehydrogenase Total Creatine Kinase 52 L CK-MB (CK-2) CK-MB (CK-2) Rel Index Troponin T C-Reactive Protein Total Protein Albumin 3.2 L Prealbumin Triglycerides HDL Cholesterol Arterial Blood Glucose Arterial Blood Ionized Calcium Acetaminophen Crossmatch 03/08/21 03/08/21 03/08/21 15:49 15:49 15:49 WBC RBC Hgb Hct MCV RDW Plt Count Lymph % (Auto) [place] % (Auto) Lymph # (Auto) [place] # (Auto) Seg Neutrophils % Seg Neuts % (Manual) Lymphocytes % (Manual) Seg Neutrophils # Seg Neutrophils # Man Lymphocytes # (Manual) APTT D-Dimer ABG pH POC ABG pCO2 POC ABG pO2 ABG pO2 ABG HCO3 ABG O2 Saturation ABG Base Excess ABG Hemoglobin ABG Oxyhemoglobin ABG Sodium ABG Potassium ABG Chloride ABG Glucose Carboxyhemoglobin Sodium Potassium Chloride Carbon Dioxide BUN Creatinine Glucose 150 H POC Glucose Lactic Acid 3.40 H* Calcium Phosphorus Magnesium Ferritin AST Ammonia Lactate Dehydrogenase 209 H Total Creatine Kinase CK-MB (CK-2) CK-MB (CK-2) Rel Index Troponin T C-Reactive Protein 24.00 H Total Protein Albumin Prealbumin Triglycerides HDL Cholesterol Arterial Blood Glucose Arterial Blood Ionized Calcium Acetaminophen 5.0 L Crossmatch 03/08/21 03/08/21 03/09/21 15:49 23:27 00:00 WBC RBC Hgb Hct MCV RDW Plt Count Lymph % (Auto) [place] % (Auto) Lymph # (Auto) [place] # (Auto) Seg Neutrophils % Seg Neuts % (Manual) Lymphocytes % (Manual) Seg Neutrophils # Seg Neutrophils # Man Lymphocytes # (Manual) APTT D-Dimer ABG pH POC ABG pCO2 POC ABG pO2 ABG pO2 ABG HCO3 ABG O2 Saturation ABG Base Excess ABG Hemoglobin ABG Oxyhemoglobin ABG Sodium ABG Potassium ABG Chloride ABG Glucose Carboxyhemoglobin Sodium Potassium Chloride Carbon Dioxide BUN Creatinine Glucose POC Glucose 185 H Lactic Acid Calcium Phosphorus Magnesium Ferritin 1373.0 H AST Ammonia Lactate Dehydrogenase Total Creatine Kinase CK-MB (CK-2) CK-MB (CK-2) Rel Index Troponin T C-Reactive Protein Total Protein Albumin Prealbumin 0.058 L Triglycerides HDL Cholesterol Arterial Blood Glucose Arterial Blood Ionized Calcium Acetaminophen Crossmatch 03/09/21 03/09/21 03/09/21 05:11 06:18 06:18 WBC RBC 3.50 L Hgb 10.8 L Hct 32.8 L D MCV RDW 13.1 L Plt Count 111 L Lymph % (Auto) 9.[address] % (Auto) 9.2 H Lymph # (Auto) 0.[address] [place] # (Auto) Seg Neutrophils % 80.4 H Seg Neuts % (Manual) Lymphocytes % (Manual) Seg Neutrophils # Seg Neutrophils # Man Lymphocytes # (Manual) APTT D-Dimer ABG pH POC ABG pCO2 POC ABG pO2 ABG pO2 ABG HCO3 ABG O2 Saturation ABG Base Excess ABG Hemoglobin ABG Oxyhemoglobin ABG Sodium ABG Potassium ABG Chloride ABG Glucose Carboxyhemoglobin Sodium 135 L Potassium 5.3 H Chloride Carbon Dioxide BUN 46 H Creatinine Glucose 178 H POC Glucose 183 H Lactic Acid Calcium 8.2 L Phosphorus Magnesium Ferritin AST Ammonia Lactate Dehydrogenase Total Creatine Kinase CK-MB (CK-2) CK-MB (CK-2) Rel Index Troponin T C-Reactive Protein Total Protein 6.1 L Albumin 2.4 L Prealbumin Triglycerides HDL Cholesterol Arterial Blood Glucose Arterial Blood Ionized Calcium Acetaminophen Crossmatch 03/09/21 03/09/21 03/09/21 07:40 11:39 18:09 WBC RBC Hgb Hct MCV RDW Plt Count Lymph % (Auto) [place] % (Auto) Lymph # (Auto) [place] # (Auto) Seg Neutrophils % Seg Neuts % (Manual) Lymphocytes % (Manual) Seg Neutrophils # Seg Neutrophils # Man Lymphocytes # (Manual) APTT D-Dimer ABG pH 7.485 H POC ABG pCO2 POC ABG pO2 179.1 H ABG pO2 ABG HCO3 ABG O2 Saturation ABG Base Excess ABG Hemoglobin 10.8 L ABG Oxyhemoglobin 99.1 H ABG Sodium 133.2 L ABG Potassium ABG Chloride ABG Glucose 175 H Carboxyhemoglobin 0 L Sodium Potassium Chloride Carbon Dioxide BUN Creatinine Glucose POC Glucose 165 H 167 H Lactic Acid Calcium Phosphorus Magnesium Ferritin AST Ammonia Lactate Dehydrogenase Total Creatine Kinase CK-MB (CK-2) CK-MB (CK-2) Rel Index Troponin T C-Reactive Protein Total Protein Albumin Prealbumin Triglycerides HDL Cholesterol Arterial Blood Glucose 175 H Arterial Blood Ionized Calcium 4.3 L Acetaminophen Crossmatch 08/09/2803/10/21 03/10/21 23:53 02:59 05:14 WBC 12.0 H RBC Hgb 11.7 L Hct MCV 95 H RDW Plt Count Lymph % (Auto) 2.[address] [place] % (Auto) 7.5 H Lymph # (Auto) 0.[address] [place] # (Auto) 0.9 H Seg Neutrophils % 89.8 H Seg Neuts % (Manual) Lymphocytes % (Manual) Seg Neutrophils # 10.8 H Seg Neutrophils # Man Lymphocytes # (Manual) APTT D-Dimer ABG pH POC ABG pCO2 POC ABG pO2 ABG pO2 ABG HCO3 ABG O2 Saturation ABG Base Excess ABG Hemoglobin 11.9 L ABG Oxyhemoglobin ABG Sodium ABG Potassium ABG Chloride 108.0 H ABG Glucose 232 H Carboxyhemoglobin 0.3 L Sodium Potassium Chloride Carbon Dioxide BUN Creatinine Glucose POC Glucose 210 H Lactic Acid Calcium Phosphorus Magnesium Ferritin AST Ammonia Lactate Dehydrogenase Total Creatine Kinase CK-MB (CK-2) CK-MB (CK-2) Rel Index Troponin T C-Reactive Protein Total Protein Albumin Prealbumin Triglycerides HDL Cholesterol Arterial Blood Glucose 232 H Arterial Blood Ionized Calcium 4.4 L Acetaminophen Crossmatch 03/10/21 03/10/21 03/10/21 05:14 05:14 05:14 WBC RBC Hgb Hct MCV RDW Plt Count Lymph % (Auto) [place] % (Auto) Lymph # (Auto) [place] # (Auto) Seg Neutrophils % Seg Neuts % (Manual) Lymphocytes % (Manual) Seg Neutrophils # Seg Neutrophils # Man Lymphocytes # (Manual) APTT D-Dimer ABG pH POC ABG pCO2 POC ABG pO2 ABG pO2 ABG HCO3 ABG O2 Saturation ABG Base Excess ABG Hemoglobin ABG Oxyhemoglobin ABG Sodium ABG Potassium ABG Chloride ABG Glucose Carboxyhemoglobin Sodium Potassium Chloride 107.2 H Carbon Dioxide BUN 48 H Creatinine Glucose 218 H POC Glucose Lactic Acid Calcium 7.9 L Phosphorus Magnesium Ferritin AST 41 H Ammonia Lactate Dehydrogenase Total Creatine Kinase CK-MB (CK-2) 17.8 H CK-MB (CK-2) Rel Index 18.1 H Troponin T 0.798 H* C-Reactive Protein Total Protein 5.7 L Albumin 2.7 L Prealbumin Triglycerides 173 H HDL Cholesterol 36 L Arterial Blood Glucose Arterial Blood Ionized Calcium Acetaminophen Crossmatch 03/10/21 03/10/21 03/10/21 05:35 11:43 18:17 WBC RBC Hgb Hct MCV RDW Plt Count Lymph % (Auto) [place] % (Auto) Lymph # (Auto) [place] # (Auto) Seg Neutrophils % Seg Neuts % (Manual) Lymphocytes % (Manual) Seg Neutrophils # Seg Neutrophils # Man Lymphocytes # (Manual) APTT D-Dimer ABG pH POC ABG pCO2 POC ABG pO2 ABG pO2 ABG HCO3 ABG O2 Saturation ABG Base Excess ABG Hemoglobin ABG Oxyhemoglobin ABG Sodium ABG Potassium ABG Chloride ABG Glucose Carboxyhemoglobin Sodium Potassium Chloride Carbon Dioxide BUN Creatinine Glucose POC Glucose 210 H 221 H 120 H Lactic Acid Calcium Phosphorus Magnesium Ferritin AST Ammonia Lactate Dehydrogenase Total Creatine Kinase CK-MB (CK-2) CK-MB (CK-2) Rel Index Troponin T C-Reactive Protein Total Protein Albumin Prealbumin Triglycerides HDL Cholesterol Arterial Blood Glucose Arterial Blood Ionized Calcium Acetaminophen Crossmatch 03/10/21 03/11/21 03/11/21 18:40 00:44 08:00 WBC RBC Hgb Hct MCV RDW Plt Count Lymph % (Auto) [place] % (Auto) Lymph # (Auto) [place] # (Auto) Seg Neutrophils % Seg Neuts % (Manual) Lymphocytes % (Manual) Seg Neutrophils # Seg Neutrophils # Man Lymphocytes # (Manual) APTT D-Dimer ABG pH POC ABG pCO2 POC ABG pO2 ABG pO2 ABG HCO3 ABG O2 Saturation ABG Base Excess ABG Hemoglobin ABG Oxyhemoglobin ABG Sodium ABG Potassium ABG Chloride ABG Glucose Carboxyhemoglobin Sodium Potassium Chloride Carbon Dioxide BUN Creatinine Glucose POC Glucose Lactic Acid Calcium Phosphorus Magnesium Ferritin AST Ammonia Lactate Dehydrogenase Total Creatine Kinase CK-MB (CK-2) CK-MB (CK-2) Rel Index Troponin T 0.477 H* D 0.430 H* 0.363 H* C-Reactive Protein Total Protein Albumin Prealbumin Triglycerides HDL Cholesterol Arterial Blood Glucose Arterial Blood Ionized Calcium Acetaminophen Crossmatch 03/11/21 03/11/21 03/11/21 08:00 08:00 11:26 WBC 14.7 H RBC 3.62 L Hgb 11.3 L Hct 34.4 L MCV 95 H RDW Plt Count Lymph % (Auto) [place] % (Auto) Lymph # (Auto) [place] # (Auto) Seg Neutrophils % Seg Neuts % (Manual) Lymphocytes % (Manual) Seg Neutrophils # Seg Neutrophils # Man Lymphocytes # (Manual) APTT D-Dimer ABG pH POC ABG pCO2 POC ABG pO2 ABG pO2 ABG HCO3 ABG O2 Saturation ABG Base Excess ABG Hemoglobin ABG Oxyhemoglobin ABG Sodium ABG Potassium ABG Chloride ABG Glucose Carboxyhemoglobin Sodium Potassium Chloride Carbon Dioxide BUN 34 H Creatinine Glucose 167 H POC Glucose 157 H Lactic Acid Calcium Phosphorus 2.40 L Magnesium 2.40 H Ferritin AST Ammonia Lactate Dehydrogenase Total Creatine Kinase CK-MB (CK-2) CK-MB (CK-2) Rel Index Troponin T C-Reactive Protein Total Protein 6.1 L Albumin 2.7 L Prealbumin Triglycerides HDL Cholesterol Arterial Blood Glucose Arterial Blood Ionized Calcium Acetaminophen Crossmatch 03/11/21 03/11/21 03/12/21 17:31 21:50 03:05 WBC RBC Hgb 10.7 L Hct 33.6 L MCV RDW Plt Count Lymph % (Auto) [place] % (Auto) Lymph # (Auto) [place] # (Auto) Seg Neutrophils % Seg Neuts % (Manual) Lymphocytes % (Manual) Seg Neutrophils # Seg Neutrophils # Man Lymphocytes # (Manual) APTT D-Dimer ABG pH POC ABG pCO2 POC ABG pO2 ABG pO2 ABG HCO3 ABG O2 Saturation ABG Base Excess ABG Hemoglobin ABG Oxyhemoglobin ABG Sodium ABG Potassium ABG Chloride ABG Glucose Carboxyhemoglobin Sodium Potassium Chloride Carbon Dioxide BUN Creatinine Glucose POC Glucose 154 H 139 H Lactic Acid Calcium Phosphorus Magnesium Ferritin AST Ammonia Lactate Dehydrogenase Total Creatine Kinase CK-MB (CK-2) CK-MB (CK-2) Rel Index Troponin T C-Reactive Protein Total Protein Albumin Prealbumin Triglycerides HDL Cholesterol Arterial Blood Glucose Arterial Blood Ionized Calcium Acetaminophen Crossmatch 03/12/21 03/12/21 03/12/21 04:40 04:40 06:03 WBC 11.6 H RBC 3.28 L Hgb 10.3 L Hct 31.3 L MCV 96 H RDW Plt Count Lymph % (Auto) [place] % (Auto) Lymph # (Auto) [place] # (Auto) Seg Neutrophils % Seg Neuts % (Manual) 92.0 H Lymphocytes % (Manual) 3.0 L Seg Neutrophils # Seg Neutrophils # Man 10.7 H Lymphocytes # (Manual) 0.3 L APTT D-Dimer ABG pH POC ABG pCO2 POC ABG pO2 ABG pO2 ABG HCO3 ABG O2 Saturation ABG Base Excess ABG Hemoglobin ABG Oxyhemoglobin ABG Sodium ABG Potassium ABG Chloride ABG Glucose Carboxyhemoglobin Sodium Potassium Chloride 108.7 H Carbon Dioxide BUN 28 H Creatinine Glucose 137 H POC Glucose 137 H Lactic Acid Calcium 8.2 L Phosphorus Magnesium Ferritin AST Ammonia Lactate Dehydrogenase Total Creatine Kinase CK-MB (CK-2) CK-MB (CK-2) Rel Index Troponin T 0.261 H* D C-Reactive Protein Total Protein Albumin Prealbumin Triglycerides HDL Cholesterol Arterial Blood Glucose Arterial Blood Ionized Calcium Acetaminophen Crossmatch 03/12/21 03/12/21 03/13/21 14:17 17:28 04:09 WBC RBC Hgb 9.1 L Hct 27.7 L MCV RDW Plt Count Lymph % (Auto) [place] % (Auto) Lymph # (Auto) [place] # (Auto) Seg Neutrophils % Seg Neuts % (Manual) Lymphocytes % (Manual) Seg Neutrophils # Seg Neutrophils # Man Lymphocytes # (Manual) APTT D-Dimer ABG pH POC ABG pCO2 POC ABG pO2 ABG pO2 ABG HCO3 ABG O2 Saturation ABG Base Excess ABG Hemoglobin ABG Oxyhemoglobin ABG Sodium ABG Potassium ABG Chloride ABG Glucose Carboxyhemoglobin Sodium Potassium Chloride Carbon Dioxide BUN Creatinine Glucose POC Glucose 165 H 111 H Lactic Acid Calcium Phosphorus Magnesium Ferritin AST Ammonia Lactate Dehydrogenase Total Creatine Kinase CK-MB (CK-2) CK-MB (CK-2) Rel Index Troponin T C-Reactive Protein Total Protein Albumin Prealbumin Triglycerides HDL Cholesterol Arterial Blood Glucose Arterial Blood Ionized Calcium Acetaminophen Crossmatch 03/13/21 03/13/21 03/13/21 05:04 11:28 14:25 WBC RBC Hgb 6.7 L Hct 19.7 L* D MCV RDW Plt Count Lymph % (Auto) [place] % (Auto) Lymph # (Auto) [place] # (Auto) Seg Neutrophils % Seg Neuts % (Manual) Lymphocytes % (Manual) Seg Neutrophils # Seg Neutrophils # Man Lymphocytes # (Manual) APTT D-Dimer ABG pH POC ABG pCO2 POC ABG pO2 ABG pO2 ABG HCO3 ABG O2 Saturation ABG Base Excess ABG Hemoglobin ABG Oxyhemoglobin ABG Sodium ABG Potassium ABG Chloride ABG Glucose Carboxyhemoglobin Sodium Potassium Chloride Carbon Dioxide BUN Creatinine Glucose POC Glucose 113 H 148 H Lactic Acid Calcium Phosphorus Magnesium Ferritin AST Ammonia Lactate Dehydrogenase Total Creatine Kinase CK-MB (CK-2) CK-MB (CK-2) Rel Index Troponin T C-Reactive Protein Total Protein Albumin Prealbumin Triglycerides HDL Cholesterol Arterial Blood Glucose Arterial Blood Ionized Calcium Acetaminophen Crossmatch 03/13/21 03/13/21 03/13/21 15:22 17:25 19:16 WBC RBC Hgb Hct MCV RDW Plt Count Lymph % (Auto) [place] % (Auto) Lymph # (Auto) [place] # (Auto) Seg Neutrophils % Seg Neuts % (Manual) Lymphocytes % (Manual) Seg Neutrophils # Seg Neutrophils # Man Lymphocytes # (Manual) APTT D-Dimer ABG pH 7.174 L POC ABG pCO2 POC ABG pO2 78.7 L ABG pO2 ABG HCO3 ABG O2 Saturation ABG Base Excess ABG Hemoglobin 5.5 L ABG Oxyhemoglobin 88.8 L ABG Sodium 135.1 L ABG Potassium 5.2 H ABG Chloride 109.0 H ABG Glucose 96 H Carboxyhemoglobin Sodium Potassium Chloride Carbon Dioxide BUN Creatinine Glucose POC Glucose 47 L Lactic Acid Calcium Phosphorus Magnesium Ferritin AST Ammonia Lactate Dehydrogenase Total Creatine Kinase CK-MB (CK-2) CK-MB (CK-2) Rel Index Troponin T C-Reactive Protein Total Protein Albumin Prealbumin Triglycerides HDL Cholesterol Arterial Blood Glucose 96 H Arterial Blood Ionized Calcium 4.4 L Acetaminophen Crossmatch See Detail 03/13/21 03/13/21 03/13/21 20:06 20:16 20:24 WBC RBC Hgb 8.1 L Hct 24.1 L MCV RDW Plt Count Lymph % (Auto) [place] % (Auto) Lymph # (Auto) [place] # (Auto) Seg Neutrophils % Seg Neuts % (Manual) Lymphocytes % (Manual) Seg Neutrophils # Seg Neutrophils # Man Lymphocytes # (Manual) APTT D-Dimer ABG pH 7.094 L POC ABG pCO2 64.0 H POC ABG pO2 68.2 L ABG pO2 ABG HCO3 ABG O2 Saturation ABG Base Excess ABG Hemoglobin 7.9 L ABG Oxyhemoglobin 84.6 L ABG Sodium ABG Potassium 4.9 H ABG Chloride ABG Glucose 220 H Carboxyhemoglobin Sodium Potassium Chloride Carbon Dioxide BUN Creatinine Glucose POC Glucose 188 H Lactic Acid Calcium Phosphorus Magnesium Ferritin AST Ammonia Lactate Dehydrogenase Total Creatine Kinase CK-MB (CK-2) CK-MB (CK-2) Rel Index Troponin T C-Reactive Protein Total Protein Albumin Prealbumin Triglycerides HDL Cholesterol Arterial Blood Glucose 220 H Arterial Blood Ionized Calcium 4.1 L Acetaminophen Crossmatch 03/13/21 03/14/21 03/14/21 23:17 04:00 04:00 WBC 17.9 H RBC 2.55 L Hgb 7.8 L Hct 23.1 L MCV RDW Plt Count 111 L Lymph % (Auto) [place] % (Auto) Lymph # (Auto) [place] # (Auto) Seg Neutrophils % Seg Neuts % (Manual) 99.0 H Lymphocytes % (Manual) Seg Neutrophils # Seg Neutrophils # Man 17.7 H Lymphocytes # (Manual) 0.0 L APTT D-Dimer ABG pH POC ABG pCO2 POC ABG pO2 ABG pO2 ABG HCO3 ABG O2 Saturation ABG Base Excess ABG Hemoglobin ABG Oxyhemoglobin ABG Sodium ABG Potassium ABG Chloride ABG Glucose Carboxyhemoglobin Sodium Potassium Chloride Carbon Dioxide 35 H BUN 48 H Creatinine 1.7 H D Glucose 258 H POC Glucose 244 H Lactic Acid Calcium 7.2 L Phosphorus Magnesium Ferritin AST Ammonia Lactate Dehydrogenase Total Creatine Kinase CK-MB (CK-2) CK-MB (CK-2) Rel Index Troponin T C-Reactive Protein Total Protein Albumin Prealbumin Triglycerides HDL Cholesterol Arterial Blood Glucose Arterial Blood Ionized Calcium Acetaminophen Crossmatch 03/14/21 03/14/21 03/14/21 05:15 10:24 14:54 WBC RBC Hgb 8.3 L Hct 24.1 L MCV RDW Plt Count Lymph % (Auto) [place] % (Auto) Lymph # (Auto) [place] # (Auto) Seg Neutrophils % Seg Neuts % (Manual) Lymphocytes % (Manual) Seg Neutrophils # Seg Neutrophils # Man Lymphocytes # (Manual) APTT D-Dimer ABG pH 7.294 L POC ABG pCO2 69.4 H POC ABG pO2 128.0 H ABG pO2 ABG HCO3 ABG O2 Saturation ABG Base Excess ABG Hemoglobin 10.2 L ABG Oxyhemoglobin ABG Sodium ABG Potassium ABG Chloride ABG Glucose 130 H Carboxyhemoglobin 0.3 L Sodium Potassium Chloride Carbon Dioxide BUN Creatinine Glucose POC Glucose 203 H Lactic Acid Calcium Phosphorus Magnesium Ferritin AST Ammonia Lactate Dehydrogenase Total Creatine Kinase CK-MB (CK-2) CK-MB (CK-2) Rel Index Troponin T C-Reactive Protein Total Protein Albumin Prealbumin Triglycerides HDL Cholesterol Arterial Blood Glucose 130 H Arterial Blood Ionized Calcium 4.1 L Acetaminophen Crossmatch 03/14/21 03/14/21 03/15/21 17:37 23:39 04:00 WBC RBC Hgb 8.0 L Hct 23.4 L MCV RDW Plt Count 119 L Lymph % (Auto) [place] % (Auto) Lymph # (Auto) [place] # (Auto) Seg Neutrophils % Seg Neuts % (Manual) Lymphocytes % (Manual) Seg Neutrophils # Seg Neutrophils # Man Lymphocytes # (Manual) APTT D-Dimer ABG pH POC ABG pCO2 POC ABG pO2 ABG pO2 ABG HCO3 ABG O2 Saturation ABG Base Excess ABG Hemoglobin ABG Oxyhemoglobin ABG Sodium ABG Potassium ABG Chloride ABG Glucose Carboxyhemoglobin Sodium Potassium Chloride Carbon Dioxide BUN Creatinine Glucose POC Glucose 110 H 112 H Lactic Acid Calcium Phosphorus Magnesium Ferritin AST Ammonia Lactate Dehydrogenase Total Creatine Kinase CK-MB (CK-2) CK-MB (CK-2) Rel Index Troponin T C-Reactive Protein Total Protein Albumin Prealbumin Triglycerides HDL Cholesterol Arterial Blood Glucose Arterial Blood Ionized Calcium Acetaminophen Crossmatch 03/15/21 03/15/21 03/15/21 04:00 05:54 10:32 WBC RBC Hgb Hct MCV RDW Plt Count Lymph % (Auto) [place] % (Auto) Lymph # (Auto) [place] # (Auto) Seg Neutrophils % Seg Neuts % (Manual) Lymphocytes % (Manual) Seg Neutrophils # Seg Neutrophils # Man Lymphocytes # (Manual) APTT D-Dimer ABG pH POC ABG pCO2 71.5 H POC ABG pO2 ABG pO2 ABG HCO3 ABG O2 Saturation ABG Base Excess ABG Hemoglobin 7.9 L ABG Oxyhemoglobin ABG Sodium ABG Potassium ABG Chloride ABG Glucose 160 H Carboxyhemoglobin Sodium Potassium Chloride Carbon Dioxide 39 H BUN 41 H Creatinine 1.6 H Glucose 153 H POC Glucose 131 H Lactic Acid Calcium 7.0 L Phosphorus Magnesium Ferritin AST Ammonia Lactate Dehydrogenase Total Creatine Kinase CK-MB (CK-2) CK-MB (CK-2) Rel Index Troponin T C-Reactive Protein Total Protein Albumin Prealbumin Triglycerides HDL Cholesterol Arterial Blood Glucose 160 H Arterial Blood Ionized Calcium 3.9 L Acetaminophen Crossmatch 03/15/21 03/15/21 03/15/21 11:19 11:37 11:40 WBC RBC Hgb Hct MCV RDW Plt Count Lymph % (Auto) [place] % (Auto) Lymph # (Auto) [place] # (Auto) Seg Neutrophils % Seg Neuts % (Manual) Lymphocytes % (Manual) Seg Neutrophils # Seg Neutrophils # Man Lymphocytes # (Manual) APTT D-Dimer ABG pH POC ABG pCO2 POC ABG pO2 ABG pO2 ABG HCO3 ABG O2 Saturation ABG Base Excess ABG Hemoglobin ABG Oxyhemoglobin ABG Sodium ABG Potassium ABG Chloride ABG Glucose Carboxyhemoglobin Sodium Potassium Chloride Carbon Dioxide BUN Creatinine Glucose 317 H POC Glucose 28 L 25 L Lactic Acid Calcium Phosphorus Magnesium Ferritin AST Ammonia Lactate Dehydrogenase Total Creatine Kinase CK-MB (CK-2) CK-MB (CK-2) Rel Index Troponin T C-Reactive Protein Total Protein Albumin Prealbumin Triglycerides HDL Cholesterol Arterial Blood Glucose Arterial Blood Ionized Calcium Acetaminophen Crossmatch 03/15/21 03/15/21 03/15/21 12:33 20:05 20:15 WBC RBC Hgb 8.0 L Hct 23.5 L MCV RDW Plt Count Lymph % (Auto) [place] % (Auto) Lymph # (Auto) [place] # (Auto) Seg Neutrophils % Seg Neuts % (Manual) Lymphocytes % (Manual) Seg Neutrophils # Seg Neutrophils # Man Lymphocytes # (Manual) APTT D-Dimer ABG pH POC ABG pCO2 63.7 H POC ABG pO2 43.1 L ABG pO2 ABG HCO3 ABG O2 Saturation ABG Base Excess ABG Hemoglobin 8.1 L ABG Oxyhemoglobin 76.4 L ABG Sodium 134.8 L ABG Potassium ABG Chloride ABG Glucose 171 H Carboxyhemoglobin Sodium Potassium Chloride Carbon Dioxide BUN Creatinine Glucose POC Glucose 145 H Lactic Acid Calcium Phosphorus Magnesium Ferritin AST Ammonia Lactate Dehydrogenase Total Creatine Kinase CK-MB (CK-2) CK-MB (CK-2) Rel Index Troponin T C-Reactive Protein Total Protein Albumin Prealbumin Triglycerides HDL Cholesterol Arterial Blood Glucose 171 H Arterial Blood Ionized Calcium 3.9 L Acetaminophen Crossmatch 03/16/21 04:05 WBC RBC Hgb Hct MCV RDW Plt Count 96 L Lymph % (Auto) [place] % (Auto) Lymph # (Auto) [place] # (Auto) Seg Neutrophils % Seg Neuts % (Manual) Lymphocytes % (Manual) Seg Neutrophils # Seg Neutrophils # Man Lymphocytes # (Manual) APTT D-Dimer ABG pH POC ABG pCO2 POC ABG pO2 ABG pO2 ABG HCO3 ABG O2 Saturation ABG Base Excess ABG Hemoglobin ABG Oxyhemoglobin ABG Sodium ABG Potassium ABG Chloride ABG Glucose Carboxyhemoglobin Sodium Potassium Chloride Carbon Dioxide BUN Creatinine Glucose POC Glucose Lactic Acid Calcium Phosphorus Magnesium Ferritin AST Ammonia Lactate Dehydrogenase Total Creatine Kinase CK-MB (CK-2) CK-MB (CK-2) Rel Index Troponin T C-Reactive Protein Total Protein Albumin Prealbumin Triglycerides HDL Cholesterol Arterial Blood Glucose Arterial Blood Ionized Calcium Acetaminophen Crossmatch
[2021-03-16] MEDS: ASPIRIN 81 MG TAB CHEW PO SCH ×2 (09:06→14:23)
[2021-03-16] MEDS: CLOPIDOGREL 75 MG TAB PO SCH ×2 (09:06→14:23)
[2021-03-16] MEDS: HEPARIN 5,000 UNIT/1 ML VIAL SUB-Q SCH (09:07)
[2021-03-16] MEDS: PANTOPRAZOLE 40 MG INJ IV SCH ×2 (09:07→21:28)
[2021-03-16] MEDS: MORPHINE 2 MG/1 ML INJ IV PRN (09:35)
[2021-03-16] MEDS: BUDESONIDE 0.5 MG/2 ML NEBU IH SCH ×2 (09:53→21:45)
[2021-03-16] MEDS: ARFORMOTEROL 15 MCG/2 ML NEBU IH SCH ×2 (09:53→23:18)
[2021-03-16 10:14] LABS: Hematocrit 23.1 % (35.5-45.6); Hemoglobin 7.8 gm/dl (11.8-15.2); Mean Corpuscular HGB Conc 34 % (32-34); Mean Corpuscular Volume 92 fl (84-94); Platelet Count 114 K/mm3 (140-440); Red Blood Count 2.51 M/mm3 (3.65-5.03); Red Cell Distribution Width 14.8 % (13.2-15.2)
[2021-03-16 10:26] LABS: BUN/Creatinine Ratio 27; Blood Urea Nitrogen 30 mg/dL (9-20); Calcium 7.4 mg/dL (8.4-10.2); Hemolysis Index 5
--- NOTE | 2021-03-16 10:54 | Progress Note ---
Assessment and Plan 65-year-old male with h/o COPD on 2L home O2, ongoing tobacco abuse and h/o vascular dementia brought to hospital by EMS for altered mental status and respiratory failure. On EMS arrival patient had a temperature 102.3, severely hypoxic with diminished breath sounds in the left side and there was a concern for pneumothorax on the left side. EMS performed a decompression of the left hemothorax but Upon arrival to the emergency room EMS placed the chest tube/catheter became dislodged. Stat chest x-ray showed no obvious left-sided pneumothorax. Given altered mental status and respiratory failure with history of hypoxia patient was intubated by the ED physician. Code sepsis was called and the patient was admitted to ICU for further stabilization and Mx. He is neg for COVID x2. His hospital stay got complicated with STEMI and V. tach cardiac arrest. S/p cardiac cath with PCI to mid LAD by cardiology. following cardiac cath he developed right foot ischemia/cyanosis with cold extremity - placed on heparin drip. His h/h declined with black tarry stool x2 and CT abdomen suggesting of retroperitoneal/iliopsoas hematoma. Heparin drip has been discontinued, patient transfused 2 units of packed RBC, anticoagulation now on hold for severe blood loss anemia and thrombocytopenia, consulted fbi profiler. A/P: -s/p Vtech arrest on 03/10 Likely due to STEMI patient never lost pulse per medical chart but RR dropped 3-4 s/p ACLS with shock improved breathing and did not require reintubation, Placed on amiodarone -Acute anteriorlateral stemi s/p coronary intervention to the mid LAD, and successful implantation of the 3.0 x 15 mm drug-eluting stent. Cardiology following, s/p Aggrastat drip Initiated on aspirin statin and Plavix s/p Levophed drip, initiated on metoprolol --Right foot ischemia Noted after PCI pt with cold clammy foot Rt>Lt placed on low intensity heparin drip following Aggrastat drip per cardiology recommendation Vascular consulted and recommended further work-up when patient clinically more stable Heparin drip now off for profound anemia --Possible GI bleed Had bloody bowel movement x2, stopped heparin drip, cont on Protonix, transfused PRBC Consulted GI, monitor h/h GI recommended medical management --Acute systolic CHF with EF 35 to 40% Continue aspirin statin and Plavix, likely acute ischemic cardiomyopathy from STEMI s/p pressor support, continue to monitor volume status -- Acute on chronic respiratory failure with hypoxia Patient on 2L home O2 for COPD Patient intubated in the emergency room patient, s/p extubation patient intermittently on BIpap 03/08 CTA Chest: BL LL PNA noted, small left apical pneumo appreciated. COVID pcr negative x2 Nebulizers: Albuterol /budesonide scheduled. Admissions Advisor following --Acute encephalopathy patient has underlying h/o vascular dementia Secondary to sepsis, high fever and hypoxia Patient initiated on IV antibiotics and vent support now extubated Possible aspiration pneumonia which cannot be ruled out CT head showed no acute infarct but extensive atherosclerotic disease with calc ification --Cerebral atherosclerosis Continue aspirin statin and Plavix -- Severe Sepsis with shock Likely due to aspiration pneumonia Patient with criteria for sepsis with elevated lactic acid Continue IV fluid and pressor support as needed -- Bilateral pneumonia Patient initiated on IV cefepime for 5 days ID consult requested Possible aspiration pneumonia also in the differential diagnosis -- Suspected COVID-19 virus infection, ruled out with 2 -ve test -- Hyponatremia Resolved with with gentle iv fluid -- Transaminitis Check acute hepatitis profile Possible secondary to underlying sepsis and hypotension -- Pneumothorax, left Small pneumothorax, s/p chest tube by EMS No intervention at this point per intencivist -- COPD with exacerbation chronic smoker nebulizer tx, supplemental O2 -- Hyperglycemia could be steroid induced Check A1c and coverage for now -- Anemia, acute on chronic Likely due to anticoagulation/retroperitoneal bleeding/possible HIT and possible GI bleed.-Transfused 2 units of packed RBC cont to monitor h/h Consulted fbi profiler: Will follow recommendation --Thrombocytopenia, hold anticoagulation, if no improvement will consult hematology --Right iliopsoas hematoma Monitor H&H and consulted surgery: Medical management for now --Severe acidosis: s/p bicarbonate drip --History of ongoing tobacco abuse, continue to monitor clinically --GAURAV due to vasomotor nephropathy, improved with IV fluid, continue to follow BMP -- DVT prophylaxis On heparin and GI prophylaxis --Full CODE STATUS --Extremely poor prognosis The high probability of a clinically significant, sudden or life threatening deterioration of the system(s) required my full and direct attention, intervention and personal management. The aggregate critical care time was [65] minutes. This time is in addition to time spent performing reported procedures but includes the following: [x] Data Review and interpretation [x] Patient assessment and monitoring of vital signs [x] Documentation [x] Medication orders and management Daily clinical course 03/09: Hypotensive in AM, Dr. Inman placed right IJ CVC. Patient intiated on pressors. UOP 200 cc overnight. 03/10: Planned for extubation today, repeat covid test pending. RN called for elevated trop - ordered serial trop, ekg, 2d echo, aspirin, statin and placed cardiology consult. will cont to follow clinically, pt remains on levophed 03/11: Patient had Vtech cardiac arrest last night. EKG showed acute STEMI. placed on amioderone and heparin drip. S/p PCI today with stent placement, discon tinued heparin drip and started on Aggrastat. Patient now noted with cold bluish LE right>left. Discussed with Dr Armstrong and recommended to initiate low intensity heparin drip after sheath was removed. Placed order and discussed the plan with nurse and pharmacy. Ordered stat lower extremity arterial Doppler and consulted vascular surgeon. Patient remains on Ventimask with 10 to 15 L of O2. Patient also remains confused, continue supportive care and follow clinically. 03/12/21: LE remain clod and cyanotic, R> L. cont heparin drip, monitor h/h. vascular procedure when clinically more stable. discussed with daughter and updated with all clinical details. pt remains on pressor. critically ill. 03/13/21; Patient had bloody BM this am. stop heparin, start protonix IV BID. follow h/h, cont pressor, transfuse 2units PRBC. mental status declined - remains agitated and restrained. Requiring pressor support. Ordered for CT abdomen pelvis for profound anemia. platient was placed on bicarbonate drip for severe acidosis. pulled out first central line, new rIJ placed 03/14/21: CT abdomen pelvis suggestive of moderate right iliopsoas hematoma, continue to follow H&H and consult general surgery. pt on BIPAP today, h/h stable. hold ACEI/spiranolactone for GAURAV. d/c bicarbonate drip as pt becoming alkalotic. patient remains confused and agitated - on restraint 03/15/21: patient on 4L n/c today, remains lethargic, H&H stable after 2 units of packed RBC on 03/13. Remains off anticoagulation due to low platelets. Very poor prognosis, vascular following for retroperitoneal hematoma. GI recommended medical management for now possible GI bleed. Per GI patient is not stable from respiratory standpoint for endoscopy. Extremely poor prognosis, will update family. Continue to monitor clinically 03/16/21: updated both daughter in details. Patient placed back on BiPAP, repeat H&H and BMP ordered. Noted improved renal function, try to initiate tube feeding today. Platelet count continues to decline -we will consult hematology. Continue to hold anticoagulation. We will initiate aspirin and Plavix after placing Dobbhoff tube. Discussed CODE STATUS and poor prognosis with patient bull bhandari and they stated they will decide soon. Subjective Date of service: 03/16/21 Principal diagnosis: Respiratory distress; Covid Positive Interval history: Patient seen and examined Patient on Bipap, off pressor Discussed with RN, vitals noted discussed with daughters by phone and at the bedside Objective - Exam Narrative Exam: General appearance: confused, ill appearing lethargy elderly gentleman. Eyes: non-icteric ENT: other (on bipap) Neck: supple, Respiratory: Bilateral: diminished breath sounds Cardiovascular: regular rate and rhythm Gastrointestinal: normoactive bowel sounds Extremities: no edema, cold and cyanotic foot rt>left Psych: unable to assess Neuro: moves extremities : Savage in place. - Constitutional Vitals: Vital Signs - 12hr 03/15/21 03/15/21 03/15/21 23:00 23:30 23:38 Temperature Pulse Rate 94 H 85 83 Respiratory 19 16 17 Rate Blood Pressure 162/51 140/65 140/65 O2 Sat by Pulse 100 100 100 Oximetry 03/16/21 03/16/21 03/16/21 00:00 00:30 00:35 Temperature 97.6 F Pulse Rate 90 82 82 Respiratory 12 16 16 Rate Blood Pressure 170/46 153/58 166/55 O2 Sat by Pulse 100 100 99 Oximetry 03/16/21 03/16/21 03/16/21 01:00 01:20 01:30 Temperature Pulse Rate 88 90 92 H Respiratory 18 20 19 Rate Blood Pressure 156/56 160/58 O2 Sat by Pulse 100 58 L 99 Oximetry 03/16/21 03/16/21 03/16/21 02:00 02:30 03:00 Temperature Pulse Rate 59 L 90 82 Respiratory 18 16 17 Rate Blood Pressure 94/59 148/61 141/51 O2 Sat by Pulse 100 100 100 Oximetry 03/16/21 03/16/21 03/16/21 03:30 04:00 04:15 Temperature 97.7 F Pulse Rate 81 89 101 H Respiratory 16 18 20 Rate Blood Pressure 134/65 147/57 O2 Sat by Pulse 100 100 58 L Oximetry 03/16/21 03/16/21 03/16/21 04:30 05:00 05:30 Temperature Pulse Rate 101 H 77 80 Respiratory 20 18 15 Rate Blood Pressure 168/57 146/61 147/60 O2 Sat by Pulse 100 100 100 Oximetry 03/16/21 03/16/21 03/16/21 05:51 06:00 06:30 Temperature Pulse Rate 82 83 84 Respiratory 17 17 Rate Blood Pressure 146/61 147/60 146/61 O2 Sat by Pulse 100 100 Oximetry 03/16/21 03/16/21 03/16/21 07:00 07:30 07:35 Temperature 99.1 F Pulse Rate 78 77 Respiratory 15 16 Rate Blood Pressure 131/55 131/55 O2 Sat by Pulse 100 100 Oximetry 03/16/21 03/16/21 03/16/21 08:00 08:30 09:00 Temperature 98.9 F Pulse Rate 75 76 86 Respiratory 17 15 17 Rate Blood Pressure 132/61 132/61 132/61 O2 Sat by Pulse 100 100 100 Oximetry 03/16/21 03/16/21 03/16/21 09:30 09:35 10:00 Temperature Pulse Rate 103 H 94 H Respiratory 18 18 17 Rate Blood Pressure 111/51 122/74 O2 Sat by Pulse 75 L 92 Oximetry 03/16/21 10:30 Temperature Pulse Rate 83 Respiratory 26 H Rate Blood Pressure 122/74 O2 Sat by Pulse 92 Oximetry - Labs CBC & Chem 7: 03/17/21 06:30 03/17/21 06:30 Labs: Abnormal lab results 03/13/21 03/15/21 03/15/21 Range/Units 15:22 10:32 11:19 WBC (4.5-11.0) K/mm3 RBC (3.65-5.03) M/mm3 Hgb (11.8-15.2) gm/dl Hct (35.5-45.6) % Plt Count (140-440) K/mm3 POC ABG pCO2 71.5 H (32.0-48.0) mmHg POC ABG pO2 (83-108) mmHg ABG Hemoglobin 7.9 L (12.0-17.5) ABG Oxyhemoglobin (94-98) ABG Sodium (136.0-145.0) mmol/L ABG Glucose 160 H (65-95) mg/dL Carbon Dioxide (22-30) mmol/L BUN (9-20) mg/dL Glucose (75-100) mg/dL POC Glucose 28 L (70-105) mg/dL Calcium (8.4-10.2) mg/dL Arterial Blood Glucose 160 H (65-95) mg/dL Arterial Blood Ionized Calcium 3.9 L (4.6-5.3) mg/dL Crossmatch See Detail 03/15/21 03/15/21 03/15/21 Range/Units 11:37 11:40 12:33 WBC (4.5-11.0) K/mm3 RBC (3.65-5.03) M/mm3 Hgb (11.8-15.2) gm/dl Hct (35.5-45.6) % Plt Count (140-440) K/mm3 POC ABG pCO2 (32.0-48.0) mmHg POC ABG pO2 (83-108) mmHg ABG Hemoglobin (12.0-17.5) ABG Oxyhemoglobin (94-98) ABG Sodium (136.0-145.0) mmol/L ABG Glucose (65-95) mg/dL Carbon Dioxide (22-30) mmol/L BUN (9-20) mg/dL Glucose 317 H (75-100) mg/dL POC Glucose 25 L 145 H (70-105) mg/dL Calcium (8.4-10.2) mg/dL Arterial Blood Glucose (65-95) mg/dL Arterial Blood Ionized Calcium (4.6-5.3) mg/dL Crossmatch 03/15/21 03/15/21 03/16/21 Range/Units 20:05 20:15 04:05 WBC (4.5-11.0) K/mm3 RBC (3.65-5.03) M/mm3 Hgb 8.0 L (11.8-15.2) gm/dl Hct 23.5 L (35.5-45.6) % Plt Count 96 L (140-440) K/mm3 POC ABG pCO2 63.7 H (32.0-48.0) mmHg POC ABG pO2 43.1 L (83-108) mmHg ABG Hemoglobin 8.1 L (12.0-17.5) ABG Oxyhemoglobin 76.4 L (94-98) ABG Sodium 134.8 L (136.0-145.0) mmol/L ABG Glucose 171 H (65-95) mg/dL Carbon Dioxide (22-30) mmol/L BUN (9-20) mg/dL Glucose (75-100) mg/dL POC Glucose (70-105) mg/dL Calcium (8.4-10.2) mg/dL Arterial Blood Glucose 171 H (65-95) mg/dL Arterial Blood Ionized Calcium 3.9 L (4.6-5.3) mg/dL Crossmatch 03/16/21 03/16/21 Range/Units 09:53 09:53 WBC 17.9 H (4.5-11.0) K/mm3 RBC 2.51 L (3.65-5.03) M/mm3 Hgb 7.8 L (11.8-15.2) gm/dl Hct 23.1 L (35.5-45.6) % Plt Count 114 L (140-440) K/mm3 POC ABG pCO2 (32.0-48.0) mmHg POC ABG pO2 (83-108) mmHg ABG Hemoglobin (12.0-17.5) ABG Oxyhemoglobin (94-98) ABG Sodium (136.0-145.0) mmol/L ABG Glucose (65-95) mg/dL Carbon Dioxide 42 H* (22-30) mmol/L BUN 30 H (9-20) mg/dL Glucose 220 H (75-100) mg/dL POC Glucose (70-105) mg/dL Calcium 7.4 L (8.4-10.2) mg/dL Arterial Blood Glucose (65-95) mg/dL Arterial Blood Ionized Calcium (4.6-5.3) mg/dL Crossmatch HEART Score - HEART Score Age: > 65 Risk factors: No known risk factors Troponin: Troponin T 0.261 ng/mL (0.00-0.029) H* D 03/12/21 04:40 Troponin: < normal limit - Critical Actions Critical Actions: 0-3 pts:0.9-1.7%risk of adverse cardiac event.Candidate for discharge
--- NOTE | 2021-03-16 12:39 | Vascular Lab Report ---
DUPLEX DOPPLER LOWER EXTREMITY ARTERIAL, BILATERAL, limited INDICATION / CLINICAL INFORMATION: evaluate pseudoaneurysm, hematoma of groins. TECHNIQUE: Arterial duplex examination of both lower extremities performed using B-mode, color flow a nd spectral Doppler assessment. FINDINGS: RIGHT: Common Femoral Artery: PSV 246 cm/sec. Triphasic waveform. Large plaque is seen Proximal SFA: PSV 78 cm/sec. Triphasic waveform. Mid SFA: Not evaluated Distal SFA: Not Evaluate Popliteal artery: Not evaluated Posterior tibial artery: PSV 9 cm/sec. Monophasic waveform. Dorsalis Pedis Artery: PSV 7 cm/sec. Monophasic waveform. LEFT: Common Femoral Artery: PSV 105 cm/sec. Triphasic waveform. Proximal SFA: PSV 121 cm/sec. Triphasic waveform. Mid SFA - Ankle : Not evaluated No pseudoaneurysm is seen in either groin. IMPRESSION: 1. No pseudoaneurysm is seen in either groin. 2. There is significant velocity elevation in the right common femoral artery with a large plaque derrick racteristic of hemodynamically significant stenosis Ankle-Brachial Index (ALEX): - Calcified arteries > 1.4 - Normal = 0.9-1.4 - Mild PAD = 0.7-0.89 - Moderate PAD = 0.51-0.69 - Severe PAD < 0.5 Doppler Waveform: - Triphasic is normal. - Biphasic is abnormal if clear transition from triphasic signal along vascular tree. - Monophasic is abnormal. Signer Name: Wil Sam MD Signed: 03/16/2021 12:35 PM Workstation Name: [id number]
--- NOTE | 2021-03-16 13:32 | Gastroenterology Progress Note ---
Assessment and Plan # GI bleed - per nursing, noted to have black stool on 03/13/2021. Heparin drip was held. Drop H/H to 6 and received blood transfusion. Hgb stable at 8. - CT showing moderate right iliopsoas hematoma. - suspect possible upper GI bleed with PUD as well given report of black stools in the setting of anticoagulation. - no BM overnight. No signs of active bleeding. - Hgb stable. rec - supportive care - cont with PPI IV - monitor H/H and for signs of bleeding. - patient not stable for respiratory standpoint for endoscopy at this time. - will follow. - Patient Problems (1) Anemia Current Visit: Yes Status: Chronic Qualifiers: Anemia type: unspecified type Qualified Code(s): D64.9 - Anemia, unspecified Subjective Date of service: 03/16/21 Principal diagnosis: Respiratory distress; Covid Positive Interval history: Patient back on bipap. Opens to eyes to touch but not following directions. Objective - Constitutional Vitals: Temp Pulse Resp BP Pulse Ox 99.1 F 89 20 188/72 58 L 03/16/21 12:00 03/16/21 12:00 03/16/21 12:07 03/16/21 12:00 03/16/21 12:07 General appearance: mild distress - Respiratory Respiratory effort: labored - Cardiovascular Rhythm: regular Heart Sounds: Present: S1 & S2 - Gastrointestinal General gastrointestinal: Present: soft, non-tender, non-distended - Labs CBC & Chem 7: 03/16/21 09:53 03/16/21 09:53 Labs: Laboratory Results - last 24 hr 03/13/21 03/15/21 03/15/21 15:22 17:54 20:05 WBC RBC Hgb Hct MCV MCH MCHC RDW Plt Count ABG pH 7.430 POC ABG pCO2 63.7 H POC ABG pO2 43.1 L POC ABG HCO3 41.3 ABG O2 Saturation 77.4 POC ABG Base Excess 15.2 ABG Hemoglobin 8.1 L ABG Oxyhemoglobin 76.4 L ABG Methemoglobin 0.3 ABG Sodium 134.8 L ABG Potassium 4.0 ABG Chloride 99.0 ABG Glucose 171 H Carboxyhemoglobin 1.0 FiO2 % 30.0 Sodium Potassium Chloride Carbon Dioxide Anion Gap BUN Creatinine Estimated GFR BUN/Creatinine Ratio Glucose POC Glucose 70 Calcium Arterial Blood Glucose 171 H Arterial Blood Ionized Calcium 3.9 L Blood Type B POSITIVE Antibody Screen Negative Crossmatch See Detail 03/15/21 03/15/21 03/16/21 20:15 20:59 04:05 WBC RBC Hgb 8.0 L Hct 23.5 L MCV MCH MCHC RDW Plt Count 96 L ABG pH POC ABG pCO2 POC ABG pO2 POC ABG HCO3 ABG O2 Saturation POC ABG Base Excess ABG Hemoglobin ABG Oxyhemoglobin ABG Methemoglobin ABG Sodium ABG Potassium ABG Chloride ABG Glucose Carboxyhemoglobin FiO2 % Sodium Potassium Chloride Carbon Dioxide Anion Gap BUN Creatinine Estimated GFR BUN/Creatinine Ratio Glucose POC Glucose 85 Calcium Arterial Blood Glucose Arterial Blood Ionized Calcium Blood Type Antibody Screen Crossmatch 03/16/21 03/16/21 03/16/21 05:19 06:10 09:53 WBC 17.9 H RBC 2.51 L Hgb 7.8 L Hct 23.1 L MCV 92 MCH 31 MCHC 34 RDW 14.8 Plt Count 114 L ABG pH POC ABG pCO2 POC ABG pO2 POC ABG HCO3 ABG O2 Saturation POC ABG Base Excess ABG Hemoglobin ABG Oxyhemoglobin ABG Methemoglobin ABG Sodium ABG Potassium ABG Chloride ABG Glucose Carboxyhemoglobin FiO2 % Sodium Potassium Chloride Carbon Dioxide Anion Gap BUN Creatinine Estimated GFR BUN/Creatinine Ratio Glucose POC Glucose 70 91 Calcium Arterial Blood Glucose Arterial Blood Ionized Calcium Blood Type Antibody Screen Crossmatch 03/16/21 03/16/21 03/16/21 09:53 11:36 11:39 WBC RBC Hgb Hct MCV MCH MCHC RDW Plt Count ABG pH POC ABG pCO2 POC ABG pO2 POC ABG HCO3 ABG O2 Saturation POC ABG Base Excess ABG Hemoglobin ABG Oxyhemoglobin ABG Methemoglobin ABG Sodium ABG Potassium ABG Chloride ABG Glucose Carboxyhemoglobin FiO2 % Sodium 143 Potassium 3.7 Chloride 99.6 Carbon Dioxide 42 H* Anion Gap 5 BUN 30 H Creatinine 1.1 Estimated GFR > 60 BUN/Creatinine Ratio 27 Glucose 220 H POC Glucose 58 L 210 H Calcium 7.4 L Arterial Blood Glucose Arterial Blood Ionized Calcium Blood Type Antibody Screen Crossmatch
--- NOTE | 2021-03-16 13:34 | Progress Note ---
Assessment and Plan - Patient Problems (1) Acute myocardial infarction Current Visit: Yes Status: Acute Plan to address problem: We will switch metoprolol to intravenous, and switch isosorbide to Nitro-Dur. When patient is able to tolerate oral medications, we will start KVNG inhibitor or other afterload oral agent. Subjective Date of service: 03/16/21 Principal diagnosis: Respiratory distress; Covid Positive Interval history: Patient is lethargic, but breathing comfortably on room air. The nurse is concerned about aspiration risk due to his poor mental status. He remains in a stable sinus rhythm. Objective Vital Signs Temp Pulse Pulse Pulse Resp Resp BP 03/16/21 12:07 20 03/16/21 12:00 99.1 F 96 H 18 188/72 03/16/21 11:57 97.7 F 03/16/21 11:30 92 H 20 154/64 03/16/21 11:00 91 H 19 154/64 03/16/21 10:30 83 26 H 122/74 03/16/21 10:00 94 H 17 122/74 03/16/21 09:35 18 03/16/21 09:30 103 H 18 111/51 03/16/21 09:00 86 17 132/61 03/16/21 08:30 76 15 132/61 03/16/21 08:00 98.9 F 75 17 132/61 03/16/21 07:35 99.1 F 03/16/21 07:30 77 16 131/55 03/16/21 07:00 78 15 131/55 03/16/21 06:30 84 17 146/61 03/16/21 06:00 83 17 147/60 03/16/21 05:51 82 146/61 03/16/21 05:30 80 15 147/60 03/16/21 05:00 77 18 146/61 03/16/21 04:30 101 H 20 168/57 03/16/21 04:15 101 H 20 03/16/21 04:00 97.7 F 89 18 147/57 03/16/21 03:30 81 16 134/65 03/16/21 03:00 82 17 141/51 03/16/21 02:30 90 16 148/61 03/16/21 02:00 59 L 18 94/59 03/16/21 01:30 92 H 19 160/58 03/16/21 01:20 90 20 03/16/21 01:00 88 18 156/56 03/16/21 00:35 82 16 166/55 03/16/21 00:30 82 16 153/58 03/16/21 00:00 97.6 F 90 12 170/46 03/15/21 23:38 83 17 140/65 03/15/21 23:30 85 16 140/65 03/15/21 23:00 94 H 19 162/51 03/15/21 22:30 84 17 186/120 03/15/21 22:20 85 20 03/15/21 22:00 89 18 158/58 03/15/21 21:30 101 H 21 172/62 03/15/21 21:00 82 19 147/51 03/15/21 20:30 85 19 116/75 03/15/21 20:10 92 H 19 03/15/21 20:00 97.7 F 87 25 H 71/35 03/15/21 19:58 03/15/21 19:57 102 H 24 03/15/21 19:30 107 H 87 25 H 71/35 03/15/21 19:25 87 25 H 71/35 03/15/21 19:10 87 25 H 71/35 03/15/21 19:00 97 H 20 154/70 03/15/21 18:55 82 87 23 71/43 03/15/21 18:30 101 H 20 154/70 03/15/21 18:00 97 H 20 149/62 03/15/21 17:30 89 16 149/62 03/15/21 17:00 93 H 20 139/71 03/15/21 16:30 88 18 139/71 03/15/21 16:00 97.8 F 99 H 23 173/65 03/15/21 15:30 87 16 173/65 03/15/21 15:00 98 H 20 126/59 03/15/21 14:30 100 H 21 126/59 03/15/21 14:26 90 126/59 03/15/21 14:00 105 H 21 119/58 Pulse Ox 03/16/21 12:07 58 L 03/16/21 12:00 95 03/16/21 11:57 03/16/21 11:30 91 03/16/21 11:00 89 03/16/21 10:30 92 03/16/21 10:00 92 03/16/21 09:35 03/16/21 09:30 75 L 03/16/21 09:00 100 03/16/21 08:30 100 03/16/21 08:00 100 03/16/21 07:35 03/16/21 07:30 100 03/16/21 07:00 100 03/16/21 06:30 100 03/16/21 06:00 100 03/16/21 05:51 03/16/21 05:30 100 03/16/21 05:00 100 03/16/21 04:30 100 03/16/21 04:15 58 L 03/16/21 04:00 100 03/16/21 03:30 100 03/16/21 03:00 100 03/16/21 02:30 100 03/16/21 02:00 100 03/16/21 01:30 99 03/16/21 01:20 58 L 03/16/21 01:00 100 03/16/21 00:35 99 03/16/21 00:30 100 03/16/21 00:00 100 03/15/21 23:38 100 03/15/21 23:30 100 03/15/21 23:00 100 03/15/21 22:30 100 03/15/21 22:20 58 L 03/15/21 22:00 100 03/15/21 21:30 100 03/15/21 21:00 100 03/15/21 20:30 99 03/15/21 20:10 86 03/15/21 20:00 100 03/15/21 19:58 88 03/15/21 19:57 03/15/21 19:30 89 03/15/21 19:25 89 03/15/21 19:10 90 03/15/21 19:00 03/15/21 18:55 58 L 03/15/21 18:30 03/15/21 18:00 03/15/21 17:30 100 03/15/21 17:00 03/15/21 16:30 81 L 03/15/21 16:00 84 03/15/21 15:30 65 L 03/15/21 15:00 90 03/15/21 14:30 93 03/15/21 14:26 03/15/21 14:00 95 - Physical Examination General: Other (Lethargic but no acute respiratory distress) HEENT: Positive: PERRL Neck: Positive: neck supple Cardiac: Positive: Reg Rate and Rhythm Lungs: Positive: Decreased Breath Sounds Neuro: Positive: Weakness Abdomen: Positive: Soft Skin: Positive: Clear Extremities: Absent: edema - Labs and Meds CBC 03/15/21 03/16/21 03/16/21 Range/Units 20:15 04:05 09:53 WBC 17.9 H (4.5-11.0) K/mm3 RBC 2.51 L (3.65-5.03) M/mm3 Hgb 8.0 L 7.8 L (11.8-15.2) gm/dl Hct 23.5 L 23.1 L (35.5-45.6) % Plt Count 96 L 114 L (140-440) K/mm3 Comprehensive Metabolic Panel 03/16/21 Range/Units 09:53 Sodium 143 (137-145) mmol/L Potassium 3.7 (3.6-5.0) mmol/L Chloride 99.6 (98-107) mmol/L Carbon Dioxide 42 H* (22-30) mmol/L BUN 30 H (9-20) mg/dL Creatinine 1.1 (0.8-1.3) mg/dL Glucose 220 H (75-100) mg/dL Calcium 7.4 L (8.4-10.2) mg/dL
--- NOTE | 2021-03-16 14:02 | Progress Note ---
Assessment and Plan 65-year-old male with cardiac issues requiring cardiac stenting with ischemic changes of the right foot. Patient has worsening ischemic changes of the right foot which is cooler compared to the left foot and has some mottling. Patient is severely altered making treatment of this not possible at this time given the multitude of his other medical issues. His vasopressors have been weaned off. Nonpalpable pedal pulses bilaterally. Nonpalpable femoral pulses due to ecchymoses over the groin. Left-sided ecchymoses much more extensive than the right. Reviewed arterial ultrasound. Large portion of the external iliac artery was visualized and no pseudoaneurysm was noted in the external iliac artery or common femoral arteries. Quality of arterial ultrasound was good and I do not think we need to perform a CT angiogram at this time, nor would the patient be able to tolerate it. We will continue to follow. Once other issues have stabilized, then we can consider treatment of the right lower extremity arterial disease. Subjective Date of service: 03/16/21 Principal diagnosis: Respiratory distress; Covid Positive Interval history: Patient is altered and positioning himself in strange positions and nonresponsive. Has large ecchymoses of the groins, left side worse than right. Cannot palpate pseudoaneurysm, but do palpate hematoma. The right foot is more mottled today with clear ischemic changes. Patient is now off vasopressors. Hemoglobin is stable. Arterial ultrasound demonstrated no pseudoaneurysms. Objective - Constitutional Vitals: Vital Signs - 12hr 03/16/21 03/16/21 03/16/21 02:00 02:30 03:00 Temperature Pulse Rate 59 L 90 82 Respiratory 18 16 17 Rate Blood Pressure 94/59 148/61 141/51 O2 Sat by Pulse 100 100 100 Oximetry 03/16/21 03/16/21 03/16/21 03:30 04:00 04:15 Temperature 97.7 F Pulse Rate 81 89 101 H Respiratory 16 18 20 Rate Blood Pressure 134/65 147/57 O2 Sat by Pulse 100 100 58 L Oximetry 03/16/21 03/16/21 03/16/21 04:30 05:00 05:30 Temperature Pulse Rate 101 H 77 80 Respiratory 20 18 15 Rate Blood Pressure 168/57 146/61 147/60 O2 Sat by Pulse 100 100 100 Oximetry 08/04/2803/16/21 03/16/21 05:51 06:00 06:30 Temperature Pulse Rate 82 83 84 Respiratory 17 17 Rate Blood Pressure 146/61 147/60 146/61 O2 Sat by Pulse 100 100 Oximetry 03/16/21 03/16/21 03/16/21 07:00 07:30 07:35 Temperature 99.1 F Pulse Rate 78 77 Respiratory 15 16 Rate Blood Pressure 131/55 131/55 O2 Sat by Pulse 100 100 Oximetry 03/16/21 03/16/21 03/16/21 08:00 08:30 09:00 Temperature 98.9 F Pulse Rate 75 76 86 Respiratory 17 15 17 Rate Blood Pressure 132/61 132/61 132/61 O2 Sat by Pulse 100 100 100 Oximetry 03/16/21 03/16/21 03/16/21 09:30 09:35 10:00 Temperature Pulse Rate 103 H 94 H Respiratory 18 18 17 Rate Blood Pressure 111/51 122/74 O2 Sat by Pulse 75 L 92 Oximetry 03/16/21 03/16/21 03/16/21 10:30 11:00 11:30 Temperature Pulse Rate 83 91 H 92 H Respiratory 26 H 19 20 Rate Blood Pressure 122/74 154/64 154/64 O2 Sat by Pulse 92 89 91 Oximetry 03/16/21 03/16/21 03/16/21 11:57 12:00 12:07 Temperature 97.7 F 99.1 F Pulse Rate 96 H Respiratory 18 20 Rate Blood Pressure 188/72 O2 Sat by Pulse 95 58 L Oximetry General appearance: Present: other (Altered on BiPAP) - EENT ENT: other (Altered on BiPAP) - Respiratory Respiratory effort: other (On BiPAP) Extremities: abnormal (Mottling of the right foot with ischemic changes. Left foot stable. Nonpalpable pedal pulses. Nonpalpable femoral pulses. Large ecchymosis over the left groin with superficial hematoma. No pseudoaneurysm palpated. Small ecchymoses over the right groin with superficial hematoma. No pseudoaneur) - Psychiatric Psychiatric: other (Confused and altered) - Labs CBC & Chem 7: 03/16/21 09:53 03/16/21 09:53 Labs: Abnormal lab results 03/13/21 03/15/21 03/15/21 Range/Units 15:22 20:05 20:15 WBC (4.5-11.0) K/mm3 RBC (3.65-5.03) M/mm3 Hgb 8.0 L (11.8-15.2) gm/dl Hct 23.5 L (35.5-45.6) % Plt Count (140-440) K/mm3 POC ABG pCO2 63.7 H (32.0-48.0) mmHg POC ABG pO2 43.1 L (83-108) mmHg ABG Hemoglobin 8.1 L (12.0-17.5) ABG Oxyhemoglobin 76.4 L (94-98) ABG Sodium 134.8 L (136.0-145.0) mmol/L ABG Glucose 171 H (65-95) mg/dL Carbon Dioxide (22-30) mmol/L BUN (9-20) mg/dL Glucose (75-100) mg/dL POC Glucose (70-105) mg/dL Calcium (8.4-10.2) mg/dL Arterial Blood Glucose 171 H (65-95) mg/dL Arterial Blood Ionized Calcium 3.9 L (4.6-5.3) mg/dL Crossmatch See Detail 03/16/21 03/16/21 03/16/21 Range/Units 04:05 09:53 09:53 WBC 17.9 H (4.5-11.0) K/mm3 RBC 2.51 L (3.65-5.03) M/mm3 Hgb 7.8 L (11.8-15.2) gm/dl Hct 23.1 L (35.5-45.6) % Plt Count 96 L 114 L (140-440) K/mm3 POC ABG pCO2 (32.0-48.0) mmHg POC ABG pO2 (83-108) mmHg ABG Hemoglobin (12.0-17.5) ABG Oxyhemoglobin (94-98) ABG Sodium (136.0-145.0) mmol/L ABG Glucose (65-95) mg/dL Carbon Dioxide 42 H* (22-30) mmol/L BUN 30 H (9-20) mg/dL Glucose 220 H (75-100) mg/dL POC Glucose (70-105) mg/dL Calcium 7.4 L (8.4-10.2) mg/dL Arterial Blood Glucose (65-95) mg/dL Arterial Blood Ionized Calcium (4.6-5.3) mg/dL Crossmatch 03/16/21 03/16/21 Range/Units 11:36 11:39 WBC (4.5-11.0) K/mm3 RBC (3.65-5.03) M/mm3 Hgb (11.8-15.2) gm/dl Hct (35.5-45.6) % Plt Count (140-440) K/mm3 POC ABG pCO2 (32.0-48.0) mmHg POC ABG pO2 (83-108) mmHg ABG Hemoglobin (12.0-17.5) ABG Oxyhemoglobin (94-98) ABG Sodium (136.0-145.0) mmol/L ABG Glucose (65-95) mg/dL Carbon Dioxide (22-30) mmol/L BUN (9-20) mg/dL Glucose (75-100) mg/dL POC Glucose 58 L 210 H (70-105) mg/dL Calcium (8.4-10.2) mg/dL Arterial Blood Glucose (65-95) mg/dL Arterial Blood Ionized Calcium (4.6-5.3) mg/dL Crossmatch Medications & Allergies - Medications Allergies/Adverse Reactions: Allergies Unable to Assess Allergy (Verified 03/08/21 14:37) AMS Active Medications: Generic Name Dose Route Start Last Admin Trade Name Freq PRN Reason Stop Dose Admin Acetaminophen 650 mg 03/08/21 21:36 Acetaminophen 325 Mg Tab PO Q4H PRN Pain MILD(1-3)/Fever >100.5/MYERS Hydrocodone Bitart/Acetaminophen 1 each 03/11/21 13:59 Hydrocodone/Acetaminophen 5-325 Mg Tab PO Q6H PRN Pain, Moderate (4-6) Albuterol 2.5 mg 03/15/21 19:28 Albuterol 2.5 Mg/3 Ml Nebu IH Q4HRT PRN Shortness Of Breath Lipase/Protease/Amylase 1 each 03/08/21 21:42 Lipase 10,500/Protease 25,000/Amylase 43,750 (Units) Dr Johnson FEEDTUBE PRN PRN For Clogged Feeding Tube Arformoterol Tartrate 15 mcg 03/10/21 20:00 03/16/21 09:53 Arformoterol 15 Mcg/2 Ml Nebu IH 15 mcg Q12HRT [facility] Administration Aspirin 81 mg 03/10/21 15:00 03/16/21 09:06 Aspirin 81 Mg Tab Chew PO 81 mg QDAY [facility] Administration Atorvastatin Calcium 40 mg 03/11/21 22:00 03/15/21 22:21 Atorvastatin 40 Mg Tab PO Not Given QHS [facility] Budesonide 0.5 mg 03/09/21 20:00 03/16/21 09:53 Budesonide 0.5 Mg/2 Ml Nebu IH 0.5 mg Q12HRT [facility] Administration Clopidogrel Bisulfate 75 mg 03/12/21 10:00 03/16/21 09:06 Clopidogrel 75 Mg Tab PO 75 mg QDAY [facility] Administration Haloperidol Lactate 5 mg 03/13/21 11:15 03/13/21 11:28 Haloperidol Lactate 5 Mg/1 Ml Inj IV 5 mg Q6H PRN Administration Agitation Norepinephrine 4 mg in 250 mls @ 7.5 mls/hr 03/09/21 08:00 03/15/21 19:28 Levophed Drip 4 Mg/Ns 250 Ml IV 2 mcg/min TITR [facility] 7.5 mls/hr Titration Protocol 2 MCG/MIN Sodium Chloride 500 mls @ 5 mls/hr 03/13/21 12:00 Nacl 0.9% 500 Ml IV DIRECT [facility] Vasopressin 20 unit/ Sodium 101 mls @ 9.09 mls/hr 03/13/21 18:00 03/14/21 00:42 Chloride IV 0 units/min TITR [facility] 0 mls/hr Titration Protocol 0.03 UNITS/MIN Dextrose 1,000 mls @ 42 mls/hr 03/15/21 16:00 03/15/21 16:19 D10w IV 42 mls/hr DIRECT [facility] Administration Sodium Chloride 500 mls @ 0 mls/hr 03/15/21 20:30 Nacl 0.9% 500 Ml IV 03/16/21 20:29 ONCE [facility] As Directed Insulin Human Lispro 0 unit 03/10/21 12:00 03/16/21 11:46 Insulin Lispro 100 Unit/Ml SUB-Q 3 unit Q6HR [facility] Administration Protocol Lorazepam 0.5 mg 03/14/21 00:40 03/14/21 22:29 Lorazepam 2 Mg/Ml Vial IV 0.5 mg Q4H PRN Administration Agitation Methylprednisolone Sodium Succinate 40 mg 03/13/21 14:00 03/16/21 13:44 Methylprednisolone Sod Succinate 40 Mg/1 Ml Inj IV 40 mg Q8HR [facility] Administration Metoclopramide HCl 10 mg 03/08/21 21:36 Metoclopramide 10 Mg/2 Ml Inj IV Q6H PRN Nausea And Vomiting Metoprolol Tartrate 5 mg 03/15/21 14:00 03/16/21 13:43 Metoprolol Tartrate 5 Mg/5 Ml Inj IV 5 mg Q6H [facility] Administration Morphine Sulfate 1 mg 03/14/21 17:07 03/16/21 09:35 Morphine 2 Mg/1 Ml Inj IV 1 mg Q4H PRN Administration Pain, Moderate (4-6) Nitroglycerin 0.4 mg 03/16/21 06:00 03/16/21 05:51 Nitroglycerin 0.4 Mg Patch 24hr TD 0.4 mg QDAY@0600 [facility] Administration Ondansetron HCl 4 mg 03/08/21 21:36 Ondansetron 4 Mg/2 Ml Inj IV Q3H PRN Nausea And Vomiting Pantoprazole Sodium 40 mg 03/13/21 13:00 03/16/21 09:07 Pantoprazole 40 Mg Inj IV 40 mg BID [facility] Administration Simple Syrup 15 ml 03/08/21 21:42 Simple Syrup 15 Ml FEEDTUBE PRN PRN Hypoglycemia Simple Syrup 30 ml 03/08/21 21:42 Simple Syrup 15 Ml FEEDTUBE PRN PRN Hypoglycemia Sodium Bicarbonate 325 mg 03/08/21 21:42 Sodium Bicarbonate 325 Mg Tab FEEDTUBE PRN PRN For Clogged Feeding Tube Sodium Chloride 10 ml 03/08/21 22:00 03/16/21 09:06 Sodium Chloride 0.9% 10 Ml Flush Syringe IV 10 ml BID [facility] Administration Sodium Chloride 10 ml 03/08/21 21:36 03/16/21 05:17 Sodium Chloride 0.9% 10 Ml Flush Syringe IV 10 ml PRN PRN Administration LINE FLUSH HEART Score - HEART Score Age: > 65 Risk factors: No known risk factors Troponin: Troponin T 0.261 ng/mL (0.00-0.029) H* D 03/12/21 04:40 Troponin: < normal limit - Critical Actions Critical Actions: 0-3 pts:0.9-1.7%risk of adverse cardiac event.Candidate for discharge
[2021-03-16] MEDS ORDERED: ARGATROBAN 250 MG in SODIUM CHLORIDE 0.9% 250ML 247.5 ML IV SCH ×3 (15:00)
[2021-03-16] MEDS ORDERED: ATROPINE 0.1% (1 MG/10 ML) CARDIAC SYRINGE ONE (15:39)
[2021-03-16] MEDS ORDERED: ATROPINE 0.1% (1 MG/10 ML) CARDIAC SYRINGE IV ONE (15:50)
--- NOTE | 2021-03-16 15:52 | Hem/Onc Consultation ---
History of Present Illness - Reason for Consult Consult date: 03/16/21 Thrombocytopenia - History of Present Illness televisit by telephone A/V cart unavailable CPT 77850 dx: heparin-induced thrombocytopenia 65yo male with h/o of copd Admitted 03/08 with ams d/t hypoxia with BL LL pna 03/11 had cardiac cath done by cardiology post STEMI--> developed right foot ischemia post cath, started on heparin drip 03/13 developed GI bleed, also with marked decrease in hgb from 13 to 6--> heparin drip stopped 03/15 large left and right groin ecchymosis --> CT showed psoas retroperitoneal hematoma Pt obtunded --> r/o stroke Exam per nurse: Pt alert and not really responsive data reviewed below IMP Presumed heparin induced thrombocytopenia, d/t retroperitoneal hematoma and marked decrease in hgb and platelets Hgb today 7.8 and no reports of any bleed as per RN recent bleeding including retroperitoneal hematoma REC: Argatroban drip --> nontitratable at 0.5mcg/kg/min --monitor for any signs of bleedings Continue Solumedrol 1mg/kg IV q8 AM labs to include aptt per HIT protocol, CBC, pf4 antibody R/o stroke when pt is able to tolerate being off bipap Laboratory Last Values WBC 17.9 K/mm3 (4.5-11.0) H 03/16/21 09:53 RBC 2.51 M/mm3 (3.65-5.03) L 03/16/21 09:53 Hgb 7.8 gm/dl (11.8-15.2) L 03/16/21 09:53 Hct 23.1 % (35.5-45.6) L 03/16/21 09:53 MCV 92 fl (84-94) 03/16/21 09:53 MCH 31 pg (28-32) 03/16/21 09:53 MCHC 34 % (32-34) 03/16/21 09:53 Plt Count 114 K/mm3 (140-440) L 03/16/21 09:53 PT 14.6 Sec. (12.2-14.9) 03/11/21 21:50 INR 1.09 (0.87-1.13) 03/11/21 21:50 APTT 31.4 Sec. (24.2-36.6) 03/11/21 21:50 D-Dimer 832.06 ng/mlDDU (0-234) H 03/08/21 15:49 Heparin Anti-Xa Level 0.65 U.I./ml (0.3-0.7) 03/13/21 01:44 Past History Past Medical History: other (Past medical history not known) Past Surgical History: Other (Not known) Social history: full code Family history: hypertension Medications and Allergies Allergies Allergy/AdvReac Type Severity Reaction Status Date / Time Unable to Assess Allergy Verified 03/08/21 14:37 Active Meds: Active Medications Acetaminophen (Acetaminophen 325 Mg Tab) 650 mg PO Q4H PRN PRN Reason: Pain MILD(1-3)/Fever >100.5/MYERS Hydrocodone Bitart/Acetaminophen (Hydrocodone/Acetaminophen 5-325 Mg Tab) 1 each PO Q6H PRN PRN Reason: Pain, Moderate (4-6) Albuterol (Albuterol 2.5 Mg/3 Ml Nebu) 2.5 mg IH Q4HRT PRN PRN Reason: Shortness Of Breath Lipase/Protease/Amylase (Lipase 10,500/Protease 25,000/Amylase 43,750 (Units) Dr Johnson) 1 each FEEDTUBE PRN PRN PRN Reason: For Clogged Feeding Tube Arformoterol Tartrate (Arformoterol 15 Mcg/2 Ml Nebu) 15 mcg IH Q12HRT [facility] Last Admin: 03/16/21 09:53 Dose: 15 mcg Documented by: Aspirin (Aspirin 81 Mg Tab Chew) 81 mg PO QDAY [facility] Last Admin: 03/16/21 14:23 Dose: Not Given Documented by: Atorvastatin Calcium (Atorvastatin 40 Mg Tab) 40 mg PO QHS [facility] Last Admin: 03/15/21 22:21 Dose: Not Given Documented by: Budesonide (Budesonide 0.5 Mg/2 Ml Nebu) 0.5 mg IH Q12HRT [facility] Last Admin: 03/16/21 09:53 Dose: 0.5 mg Documented by: Clopidogrel Bisulfate (Clopidogrel 75 Mg Tab) 75 mg PO QDAY [facility] Last Admin: 03/16/21 14:23 Dose: Not Given Documented by: Haloperidol Lactate (Haloperidol Lactate 5 Mg/1 Ml Inj) 5 mg IV Q6H PRN PRN Reason: Agitation Last Admin: 03/13/21 11:28 Dose: 5 mg Documented by: Norepinephrine (Levophed Drip 4 Mg/Ns 250 Ml) 4 mg in 250 mls @ 7.5 mls/hr IV TITR [facility]INC[facility]; Protocol Last Titration: 03/15/21 19:28 Dose: 2 mcg/min, 7.5 mls/hr Documented by: Sodium Chloride (Nacl 0.9% 500 Ml) 500 mls @ 5 mls/hr IV DIRECT [facility]INCESS Vasopressin 20 unit/ Sodium (Chloride) 101 mls @ 9.09 mls/hr IV TITR [facility]INCESS; Protocol Last Titration: 03/14/21 00:42 Dose: 0 units/min, 0 mls/hr Documented by: Dextrose (D10w) 1,000 mls @ 42 mls/hr IV DIRECT [facility]INCESS Last Admin: 03/15/21 16:19 Dose: 42 mls/hr Documented by: Sodium Chloride (Nacl 0.9% 500 Ml) 500 mls @ 0 mls/hr IV ONCE [facility] Stop: 03/16/21 20:29 Argatroban 250 mg/ Sodium (Chloride) 250 mls @ 1.527 mls/hr IV DIRECT [facility] Last Admin: 03/16/21 15:19 Dose: 0.5 mcg/kg/min, 1.527 mls/hr Documented by: Insulin Human Lispro (Insulin Lispro 100 Unit/Ml) 0 unit SUB-Q Q6HR [facility]; Protocol Last Admin: 03/16/21 11:46 Dose: 3 unit Documented by: Lorazepam (Lorazepam 2 Mg/Ml Vial) 0.5 mg IV Q4H PRN PRN Reason: Agitation Last Admin: 03/14/21 22:29 Dose: 0.5 mg Documented by: Methylprednisolone Sodium Succinate (Methylprednisolone Sod Succinate 40 Mg/1 Ml Inj) 40 mg IV Q8HR [facility] Last Admin: 03/16/21 13:44 Dose: 40 mg Documented by: Metoclopramide HCl (Metoclopramide 10 Mg/2 Ml Inj) 10 mg IV Q6H PRN PRN Reason: Nausea And Vomiting Metoprolol Tartrate (Metoprolol Tartrate 5 Mg/5 Ml Inj) 5 mg IV Q6H [facility] Last Admin: 03/16/21 13:43 Dose: 5 mg Documented by: Morphine Sulfate (Morphine 2 Mg/1 Ml Inj) 1 mg IV Q4H PRN PRN Reason: Pain, Moderate (4-6) Last Admin: 03/16/21 09:35 Dose: 1 mg Documented by: Nitroglycerin (Nitroglycerin 0.4 Mg Patch 24hr) 0.4 mg TD QDAY@0600 [facility] Last Admin: 03/16/21 05:51 Dose: 0.4 mg Documented by: Ondansetron HCl (Ondansetron 4 Mg/2 Ml Inj) 4 mg IV Q3H PRN PRN Reason: Nausea And Vomiting Pantoprazole Sodium (Pantoprazole 40 Mg Inj) 40 mg IV BID [facility] Last Admin: 03/16/21 09:07 Dose: 40 mg Documented by: Simple Syrup (Simple Syrup 15 Ml) 15 ml FEEDTUBE PRN PRN PRN Reason: Hypoglycemia Simple Syrup (Simple Syrup 15 Ml) 30 ml FEEDTUBE PRN PRN PRN Reason: Hypoglycemia Sodium Bicarbonate (Sodium Bicarbonate 325 Mg Tab) 325 mg FEEDTUBE PRN PRN PRN Reason: For Clogged Feeding Tube Sodium Chloride (Sodium Chloride 0.9% 10 Ml Flush Syringe) 10 ml IV BID [facility] Last Admin: 03/16/21 09:06 Dose: 10 ml Documented by: Sodium Chloride (Sodium Chloride 0.9% 10 Ml Flush Syringe) 10 ml IV PRN PRN PRN Reason: LINE FLUSH Last Admin: 03/16/21 05:17 Dose: 10 ml Documented by: Exam - Constitutional Vitals: Last Vital Signs Temp 99.1 F 03/16/21 12:00 Pulse 79 03/16/21 14:22 Resp 16 03/16/21 14:22 BP 140/70 03/16/21 14:22 Pulse Ox 100 03/16/21 14:22 Results - Labs lab Results: Laboratory Results - last 24 hr 03/13/21 03/15/21 03/15/21 15:22 17:54 20:05 WBC RBC Hgb Hct MCV MCH MCHC RDW Plt Count ABG pH 7.430 POC ABG pCO2 63.7 H POC ABG pO2 43.1 L POC ABG HCO3 41.3 ABG O2 Saturation 77.4 POC ABG Base Excess 15.2 ABG Hemoglobin 8.1 L ABG Oxyhemoglobin 76.4 L ABG Methemoglobin 0.3 ABG Sodium 134.8 L ABG Potassium 4.0 ABG Chloride 99.0 ABG Glucose 171 H Carboxyhemoglobin 1.0 FiO2 % 30.0 Sodium Potassium Chloride Carbon Dioxide Anion Gap BUN Creatinine Estimated GFR BUN/Creatinine Ratio Glucose POC Glucose 70 Calcium Arterial Blood Glucose 171 H Arterial Blood Ionized Calcium 3.9 L Blood Type B POSITIVE Antibody Screen Negative Crossmatch See Detail 03/15/21 03/15/21 03/16/21 20:15 20:59 04:05 WBC RBC Hgb 8.0 L Hct 23.5 L MCV MCH MCHC RDW Plt Count 96 L ABG pH POC ABG pCO2 POC ABG pO2 POC ABG HCO3 ABG O2 Saturation POC ABG Base Excess ABG Hemoglobin ABG Oxyhemoglobin ABG Methemoglobin ABG Sodium ABG Potassium ABG Chloride ABG Glucose Carboxyhemoglobin FiO2 % Sodium Potassium Chloride Carbon Dioxide Anion Gap BUN Creatinine Estimated GFR BUN/Creatinine Ratio Glucose POC Glucose 85 Calcium Arterial Blood Glucose Arterial Blood Ionized Calcium Blood Type Antibody Screen Crossmatch 03/16/21 03/16/21 03/16/21 05:19 06:10 09:53 WBC 17.9 H RBC 2.51 L Hgb 7.8 L Hct 23.1 L MCV 92 MCH 31 MCHC 34 RDW 14.8 Plt Count 114 L ABG pH POC ABG pCO2 POC ABG pO2 POC ABG HCO3 ABG O2 Saturation POC ABG Base Excess ABG Hemoglobin ABG Oxyhemoglobin ABG Methemoglobin ABG Sodium ABG Potassium ABG Chloride ABG Glucose Carboxyhemoglobin FiO2 % Sodium Potassium Chloride Carbon Dioxide Anion Gap BUN Creatinine Estimated GFR BUN/Creatinine Ratio Glucose POC Glucose 70 91 Calcium Arterial Blood Glucose Arterial Blood Ionized Calcium Blood Type Antibody Screen Crossmatch 03/16/21 03/16/21 03/16/21 09:53 11:36 11:39 WBC RBC Hgb Hct MCV MCH MCHC RDW Plt Count ABG pH POC ABG pCO2 POC ABG pO2 POC ABG HCO3 ABG O2 Saturation POC ABG Base Excess ABG Hemoglobin ABG Oxyhemoglobin ABG Methemoglobin ABG Sodium ABG Potassium ABG Chloride ABG Glucose Carboxyhemoglobin FiO2 % Sodium 143 Potassium 3.7 Chloride 99.6 Carbon Dioxide 42 H* Anion Gap 5 BUN 30 H Creatinine 1.1 Estimated GFR > 60 BUN/Creatinine Ratio 27 Glucose 220 H POC Glucose 58 L 210 H Calcium 7.4 L Arterial Blood Glucose Arterial Blood Ionized Calcium Blood Type Antibody Screen Crossmatch
--- NOTE | 2021-03-16 16:12 | XRay Report ---
. XR abdomen 1V ap INDICATION: NGT placement. COMPARISON: None available. FINDINGS: The tip of the esophagogastric tube projects over the body of the stomach. Signer Name: Alfred Lay MD Signed: 03/16/2021 4:05 PM Workstation Name: [id number]
[2021-03-16] MEDS: NORepinephrine/NS 4 MG-250 ML 4 MG/250 ML BAG IV SCH ×3 (20:22→22:53)
[2021-03-16] MEDS: ALBUTEROL 2.5 MG/3 ML NEBU IH PRN (21:45)
--- NOTE | 2021-03-16 23:20 | Event Note ---
Date: 03/16/21 Called by the respiratory therapist that the patient sat is dropping.pt more obtunded with sat in 70. ABG showed pH 7.324. PCO2 88.2. PO2 50.2 O2 sat 81.2. IPAP increased to 20. Pt more responsive after mouthcare, removing ng and refitting mask. Will repeat abg 1.5hrs. repeat ABG showed pH 7.389. PCO2 69 PO2 84 O2 sat 95.3%. we will monitor the patient closely.
[2021-03-17 01:43] LABS: Albumin 2.5 g/dL (3.9-5); Bilirubin,Direct 0.3 mg/dL (0-0.2)
[2021-03-17] MEDS: METOPROLOL TARTRATE 5 MG/5 ML INJ IV SCH ×4 (04:04→22:07)
[2021-03-17] MEDS: INSULIN LISPRO 100 UNIT/ML SUB-Q SCH ×4 (04:05→23:30)
[2021-03-17] MEDS: NITROGLYCERIN 0.4 MG PATCH 24HR TD SCH (05:45)
[2021-03-17] MEDS: methylPREDNISolone Sod Succinate 40 MG/1 ML INJ IV SCH (06:28)
[2021-03-17 07:37] LABS: Hemoglobin 6.7 gm/dl (11.8-15.2); Mean Corpuscular HGB Conc 33 % (32-34); Mean Corpuscular Volume 92 fl (84-94); Platelet Count 124 K/mm3 (140-440); Red Blood Count 2.16 M/mm3 (3.65-5.03); Red Cell Distribution Width 14.6 % (13.2-15.2)
[2021-03-17 07:57] LABS: BUN/Creatinine Ratio 27; Blood Urea Nitrogen 30 mg/dL (9-20); Calcium 7.5 mg/dL (8.4-10.2); Hemolysis Index 2
[2021-03-17] MEDS ORDERED: SODIUM CHLORIDE 0.9% 500 ML 500 ML IV NR (08:51)
[2021-03-17] MEDS: ARFORMOTEROL 15 MCG/2 ML NEBU IH SCH ×2 (09:55→21:16)
[2021-03-17] MEDS: BUDESONIDE 0.5 MG/2 ML NEBU IH SCH ×2 (09:55→21:16)
[2021-03-17] MEDS ORDERED: METOPROLOL TARTRATE 5 MG/5 ML INJ IV PRN (10:00)
[2021-03-17] MEDS: CLOPIDOGREL 75 MG TAB PO SCH (10:47)
[2021-03-17] MEDS: ASPIRIN 81 MG TAB CHEW PO SCH (10:47)
[2021-03-17] MEDS: PANTOPRAZOLE 40 MG INJ IV SCH ×2 (10:48→22:06)
[2021-03-17] MEDS ORDERED: CLOPIDOGREL 300 MG TAB PO ONE (11:00)
[2021-03-17] MEDS ORDERED: ASPIRIN 81 MG TAB CHEW PO ONE (11:00)
--- NOTE | 2021-03-17 11:31 | Progress Note ---
Assessment and Plan 65 y/o male with acute respiratory, exact etiology unknown continue supportive measures. Subjective Principal diagnosis: Respiratory distress, RI, Pseudoaneurysm Interval history: Awake and alert on Ventimask Objective Vital Signs - 12hr 03/16/21 03/17/21 03/17/21 23:31 00:00 00:01 Temperature 98.6 F Pulse Rate 97 H 92 H Pulse Rate [ Bilateral Throughout] Respiratory 22 20 21 Rate Respiratory Rate [Bilateral Throughout] Blood Pressure 119/50 124/55 O2 Sat by Pulse 87 92 94 Oximetry 03/17/21 03/17/21 03/17/21 00:30 01:00 01:30 Temperature Pulse Rate 91 H 88 89 Pulse Rate [ Bilateral Throughout] Respiratory 20 19 22 Rate Respiratory Rate [Bilateral Throughout] Blood Pressure 141/48 121/58 169/53 O2 Sat by Pulse 97 98 99 Oximetry 03/17/21 03/17/21 03/17/21 02:00 02:07 02:31 Temperature Pulse Rate 86 89 85 Pulse Rate [ Bilateral Throughout] Respiratory 18 23 17 Rate Respiratory Rate [Bilateral Throughout] Blood Pressure 157/59 152/56 160/55 O2 Sat by Pulse 100 99 100 Oximetry 03/17/21 03/17/21 03/17/21 03:00 03:30 03:51 Temperature 98.7 F Pulse Rate 86 87 Pulse Rate [ Bilateral Throughout] Respiratory 19 19 Rate Respiratory Rate [Bilateral Throughout] Blood Pressure 167/57 169/63 O2 Sat by Pulse 100 100 Oximetry 03/17/21 03/17/21 03/17/21 03:56 04:00 04:30 Temperature 98.7 F Pulse Rate 86 87 Pulse Rate [ Bilateral Throughout] Respiratory 20 15 20 Rate Respiratory Rate [Bilateral Throughout] Blood Pressure 153/66 142/56 O2 Sat by Pulse 92 100 100 Oximetry 03/17/21 03/17/21 03/17/21 05:00 05:31 05:41 Temperature Pulse Rate 85 84 96 H Pulse Rate [ Bilateral Throughout] Respiratory 17 17 21 Rate Respiratory Rate [Bilateral Throughout] Blood Pressure 162/56 152/49 152/49 O2 Sat by Pulse 100 100 99 Oximetry 03/17/21 03/17/21 03/17/21 05:50 06:01 06:11 Temperature Pulse Rate 101 H 89 89 Pulse Rate [ Bilateral Throughout] Respiratory 19 18 13 Rate Respiratory Rate [Bilateral Throughout] Blood Pressure 181/63 161/56 161/56 O2 Sat by Pulse 98 99 99 Oximetry 03/17/21 03/17/21 03/17/21 06:21 06:30 06:41 Temperature Pulse Rate 90 88 82 Pulse Rate [ Bilateral Throughout] Respiratory 16 16 17 Rate Respiratory Rate [Bilateral Throughout] Blood Pressure 147/60 158/63 158/63 O2 Sat by Pulse 100 99 100 Oximetry 03/17/21 03/17/21 03/17/21 06:51 07:00 07:11 Temperature Pulse Rate 90 86 88 Pulse Rate [ Bilateral Throughout] Respiratory 16 21 18 Rate Respiratory Rate [Bilateral Throughout] Blood Pressure 151/62 161/62 161/62 O2 Sat by Pulse 100 99 100 Oximetry 03/17/21 03/17/21 03/17/21 07:21 07:31 07:40 Temperature Pulse Rate 95 H 93 H 96 H Pulse Rate [ Bilateral Throughout] Respiratory 22 20 18 Rate Respiratory Rate [Bilateral Throughout] Blood Pressure 169/49 176/60 176/60 O2 Sat by Pulse 99 98 99 Oximetry 03/17/21 03/17/21 03/17/21 07:50 08:00 08:11 Temperature 98.4 F Pulse Rate 92 H 94 H 101 H Pulse Rate [ Bilateral Throughout] Respiratory 21 24 25 H Rate Respiratory Rate [Bilateral Throughout] Blood Pressure 176/68 148/67 148/67 O2 Sat by Pulse 99 97 93 Oximetry 03/17/21 03/17/21 03/17/21 08:21 08:30 08:31 Temperature Pulse Rate 97 H 96 H 95 H Pulse Rate [ Bilateral Throughout] Respiratory 21 24 Rate Respiratory Rate [Bilateral Throughout] Blood Pressure 148/67 146/55 146/55 O2 Sat by Pulse 97 98 Oximetry 03/17/21 03/17/21 03/17/21 08:41 08:51 09:00 Temperature Pulse Rate 93 H 86 86 Pulse Rate [ Bilateral Throughout] Respiratory 22 20 18 Rate Respiratory Rate [Bilateral Throughout] Blood Pressure 146/55 148/61 143/63 O2 Sat by Pulse 95 96 97 Oximetry 03/17/21 03/17/21 03/17/21 09:08 09:11 09:21 Temperature Pulse Rate 87 89 Pulse Rate [ Bilateral Throughout] Respiratory 20 21 Rate Respiratory Rate [Bilateral Throughout] Blood Pressure 143/63 153/53 O2 Sat by Pulse 98 99 99 Oximetry 03/17/21 03/17/2103/17/21 09:30 09:41 09:51 Temperature Pulse Rate 88 90 89 Pulse Rate [ Bilateral Throughout] Respiratory 21 23 22 Rate Respiratory Rate [Bilateral Throughout] Blood Pressure 135/54 135/54 138/57 O2 Sat by Pulse 98 98 99 Oximetry 03/17/21 03/17/21 03/17/21 09:55 10:00 10:11 Temperature Pulse Rate 93 H 91 H Pulse Rate [ 89 Bilateral Throughout] Respiratory 22 16 Rate Respiratory 22 Rate [Bilateral Throughout] Blood Pressure 158/63 158/63 O2 Sat by Pulse 70 L 97 Oximetry 03/17/21 03/17/21 03/17/21 10:21 10:31 10:41 Temperature Pulse Rate 90 89 91 H Pulse Rate [ Bilateral Throughout] Respiratory 20 20 19 Rate Respiratory Rate [Bilateral Throughout] Blood Pressure 142/59 154/59 154/59 O2 Sat by Pulse 97 100 100 Oximetry 03/17/21 03/17/21 03/17/21 10:51 11:00 11:02 Temperature 98 F Pulse Rate 91 H 91 H Pulse Rate [ Bilateral Throughout] Respiratory 22 25 H Rate Respiratory Rate [Bilateral Throughout] Blood Pressure 154/64 128/56 O2 Sat by Pulse 98 98 Oximetry 03/17/21 03/17/21 03/17/21 11:11 11:16 11:17 Temperature 98.4 F Pulse Rate 92 H 93 H Pulse Rate [ Bilateral Throughout] Respiratory 27 H 23 Rate Respiratory Rate [Bilateral Throughout] Blood Pressure 128/56 150/54 O2 Sat by Pulse 99 100 Oximetry Constitutional: lethargic, other (but arousable) Eyes: non-icteric ENT: other (orally intubated and sedated.) Neck: supple Effort: normal Ascultation: Bilateral: diminished breath sounds Cardiovascular: regular rate and rhythm Gastrointestinal: normoactive bowel sounds, soft Extremities: no edema, pink and warm Neurologic: unable to assess CBC and BMP: 03/21/21 14:30 03/21/21 23:17 ABG, PT/INR, D-dimer: ABG ABG pH 7.389 (7.320-7.450) 03/17/21 00:35 POC ABG pCO2 69.0 mmHg (32.0-48.0) H 03/17/21 00:35 ABG pCO2 43.0 mm Hg 03/08/21 15:12 POC ABG pO2 84.0 mmHg (83-108) 03/17/21 00:35 ABG pO2 381.9 mm Hg (80.0-90.0) H 03/08/21 15:12 POC ABG HCO3 40.7 03/17/21 00:35 ABG O2 Saturation 95.3 (0-100) 03/17/21 00:35 PT/INR, D-dimer PT 14.6 Sec. (12.2-14.9) 03/11/21 21:50 INR 1.09 (0.87-1.13) 03/11/21 21:50 D-Dimer 832.06 ng/mlDDU (0-234) H 03/08/21 15:49 Abnormal lab findings: Abnormal Labs 03/08/21 03/08/21 03/08/21 15:12 15:49 15:49 WBC RBC Hgb Hct MCV 95 H RDW 12.8 L Plt Count Lymph % (Auto) 5.1 L [place] % (Auto) 8.6 H Lymph # (Auto) 0.4 L [place] # (Auto) Seg Neutrophils % 86.1 H Seg Neuts % (Manual) Lymphocytes % (Manual) Seg Neutrophils # Seg Neutrophils # Man Lymphocytes # (Manual) APTT 37.1 H D-Dimer 832.06 H ABG pH 7.478 H POC ABG pCO2 POC ABG pO2 ABG pO2 381.9 H ABG HCO3 31.2 H ABG O2 Saturation 99.6 H ABG Base Excess 6.9 H ABG Hemoglobin 13.0 L ABG Oxyhemoglobin ABG Sodium ABG Potassium ABG Chloride ABG Glucose Carboxyhemoglobin Sodium Potassium Chloride Carbon Dioxide BUN Creatinine Glucose POC Glucose Lactic Acid Calcium Phosphorus Magnesium Ferritin Direct Bilirubin AST ALT Ammonia Lactate Dehydrogenase Total Creatine Kinase CK-MB (CK-2) CK-MB (CK-2) Rel Index Troponin T C-Reactive Protein Total Protein Albumin Prealbumin Triglycerides HDL Cholesterol Arterial Blood Glucose Arterial Blood Ionized Calcium Acetaminophen Crossmatch 03/08/21 03/08/21 03/08/21 15:49 15:49 15:49 WBC RBC Hgb Hct MCV RDW Plt Count Lymph % (Auto) [place] % (Auto) Lymph # (Auto) [place] # (Auto) Seg Neutrophils % Seg Neuts % (Manual) Lymphocytes % (Manual) Seg Neutrophils # Seg Neutrophils # Man Lymphocytes # (Manual) APTT D-Dimer ABG pH POC ABG pCO2 POC ABG pO2 ABG pO2 ABG HCO3 ABG O2 Saturation ABG Base Excess ABG Hemoglobin ABG Oxyhemoglobin ABG Sodium ABG Potassium ABG Chloride ABG Glucose Carboxyhemoglobin Sodium 134 L Potassium Chloride 89.7 L Carbon Dioxide 32 H BUN 47 H Creatinine Glucose 150 H POC Glucose Lactic Acid Calcium Phosphorus Magnesium Ferritin Direct Bilirubin AST ALT Ammonia 22.0 L Lactate Dehydrogenase Total Creatine Kinase 52 L CK-MB (CK-2) CK-MB (CK-2) Rel Index Troponin T C-Reactive Protein Total Protein Albumin 3.2 L Prealbumin Triglycerides HDL Cholesterol Arterial Blood Glucose Arterial Blood Ionized Calcium Acetaminophen Crossmatch 03/08/21 03/08/21 03/08/21 15:49 15:49 15:49 WBC RBC Hgb Hct MCV RDW Plt Count Lymph % (Auto) [place] % (Auto) Lymph # (Auto) [place] # (Auto) Seg Neutrophils % Seg Neuts % (Manual) Lymphocytes % (Manual) Seg Neutrophils # Seg Neutrophils # Man Lymphocytes # (Manual) APTT D-Dimer ABG pH POC ABG pCO2 POC ABG pO2 ABG pO2 ABG HCO3 ABG O2 Saturation ABG Base Excess ABG Hemoglobin ABG Oxyhemoglobin ABG Sodium ABG Potassium ABG Chloride ABG Glucose Carboxyhemoglobin Sodium Potassium Chloride Carbon Dioxide BUN Creatinine Glucose 150 H POC Glucose Lactic Acid 3.40 H* Calcium Phosphorus Magnesium Ferritin Direct Bilirubin AST ALT Ammonia Lactate Dehydrogenase 209 H Total Creatine Kinase CK-MB (CK-2) CK-MB (CK-2) Rel Index Troponin T C-Reactive Protein 24.00 H Total Protein Albumin Prealbumin Triglycerides HDL Cholesterol Arterial Blood Glucose Arterial Blood Ionized Calcium Acetaminophen 5.0 L Crossmatch 03/08/21 03/08/21 03/09/21 15:49 23:27 00:00 WBC RBC Hgb Hct MCV RDW Plt Count Lymph % (Auto) [place] % (Auto) Lymph # (Auto) [place] # (Auto) Seg Neutrophils % Seg Neuts % (Manual) Lymphocytes % (Manual) Seg Neutrophils # Seg Neutrophils # Man Lymphocytes # (Manual) APTT D-Dimer ABG pH POC ABG pCO2 POC ABG pO2 ABG pO2 ABG HCO3 ABG O2 Saturation ABG Base Excess ABG Hemoglobin ABG Oxyhemoglobin ABG Sodium ABG Potassium ABG Chloride ABG Glucose Carboxyhemoglobin Sodium Potassium Chloride Carbon Dioxide BUN Creatinine Glucose POC Glucose 185 H Lactic Acid Calcium Phosphorus Magnesium Ferritin 1373.0 H Direct Bilirubin AST ALT Ammonia Lactate Dehydrogenase Total Creatine Kinase CK-MB (CK-2) CK-MB (CK-2) Rel Index Troponin T C-Reactive Protein Total Protein Albumin Prealbumin 0.058 L Triglycerides HDL Cholesterol Arterial Blood Glucose Arterial Blood Ionized Calcium Acetaminophen Crossmatch 03/09/21 03/09/21 03/09/21 05:11 06:18 06:18 WBC RBC 3.50 L Hgb 10.8 L Hct 32.8 L D MCV RDW 13.1 L Plt Count 111 L Lymph % (Auto) 9.9 L [place] % (Auto) 9.2 H Lymph # (Auto) 0.5 L [place] # (Auto) Seg Neutrophils % 80.4 H Seg Neuts % (Manual) Lymphocytes % (Manual) Seg Neutrophils # Seg Neutrophils # Man Lymphocytes # (Manual) APTT D-Dimer ABG pH POC ABG pCO2 POC ABG pO2 ABG pO2 ABG HCO3 ABG O2 Saturation ABG Base Excess ABG Hemoglobin ABG Oxyhemoglobin ABG Sodium ABG Potassium ABG Chloride ABG Glucose Carboxyhemoglobin Sodium 135 L Potassium 5.3 H Chloride Carbon Dioxide BUN 46 H Creatinine Glucose 178 H POC Glucose 183 H Lactic Acid Calcium 8.2 L Phosphorus Magnesium Ferritin Direct Bilirubin AST ALT Ammonia Lactate Dehydrogenase Total Creatine Kinase CK-MB (CK-2) CK-MB (CK-2) Rel Index Troponin T C-Reactive Protein Total Protein 6.1 L Albumin 2.4 L Prealbumin Triglycerides HDL Cholesterol Arterial Blood Glucose Arterial Blood Ionized Calcium Acetaminophen Crossmatch 03/09/21 03/09/21 03/09/21 07:40 11:39 18:09 WBC RBC Hgb Hct MCV RDW Plt Count Lymph % (Auto) [place] % (Auto) Lymph # (Auto) [place] # (Auto) Seg Neutrophils % Seg Neuts % (Manual) Lymphocytes % (Manual) Seg Neutrophils # Seg Neutrophils # Man Lymphocytes # (Manual) APTT D-Dimer ABG pH 7.485 H POC ABG pCO2 POC ABG pO2 179.1 H ABG pO2 ABG HCO3 ABG O2 Saturation ABG Base Excess ABG Hemoglobin 10.8 L ABG Oxyhemoglobin 99.1 H ABG Sodium 133.2 L ABG Potassium ABG Chloride ABG Glucose 175 H Carboxyhemoglobin 0 L Sodium Potassium Chloride Carbon Dioxide BUN Creatinine Glucose POC Glucose 165 H 167 H Lactic Acid Calcium Phosphorus Magnesium Ferritin Direct Bilirubin AST ALT Ammonia Lactate Dehydrogenase Total Creatine Kinase CK-MB (CK-2) CK-MB (CK-2) Rel Index Troponin T C-Reactive Protein Total Protein Albumin Prealbumin Triglycerides HDL Cholesterol Arterial Blood Glucose 175 H Arterial Blood Ionized Calcium 4.3 L Acetaminophen Crossmatch 03/09/21 03/10/21 03/10/21 23:53 02:59 05:14 WBC 12.0 H RBC Hgb 11.7 L Hct MCV 95 H RDW Plt Count Lymph % (Auto) 2.6 L [place] % (Auto) 7.5 H Lymph # (Auto) 0.3 L [place] # (Auto) 0.9 H Seg Neutrophils % 89.8 H Seg Neuts % (Manual) Lymphocytes % (Manual) Seg Neutrophils # 10.8 H Seg Neutrophils # Man Lymphocytes # (Manual) APTT D-Dimer ABG pH POC ABG pCO2 POC ABG pO2 ABG pO2 ABG HCO3 ABG O2 Saturation ABG Base Excess ABG Hemoglobin 11.9 L ABG Oxyhemoglobin ABG Sodium ABG Potassium ABG Chloride 108.0 H ABG Glucose 232 H Carboxyhemoglobin 0.3 L Sodium Potassium Chloride Carbon Dioxide BUN Creatinine Glucose POC Glucose 210 H Lactic Acid Calcium Phosphorus Magnesium Ferritin Direct Bilirubin AST ALT Ammonia Lactate Dehydrogenase Total Creatine Kinase CK-MB (CK-2) CK-MB (CK-2) Rel Index Troponin T C-Reactive Protein Total Protein Albumin Prealbumin Triglycerides HDL Cholesterol Arterial Blood Glucose 232 H Arterial Blood Ionized Calcium 4.4 L Acetaminophen Crossmatch 03/10/21 03/10/21 03/10/21 05:14 05:14 05:14 WBC RBC Hgb Hct MCV RDW Plt Count Lymph % (Auto) [place] % (Auto) Lymph # (Auto) [place] # (Auto) Seg Neutrophils % Seg Neuts % (Manual) Lymphocytes % (Manual) Seg Neutrophils # Seg Neutrophils # Man Lymphocytes # (Manual) APTT D-Dimer ABG pH POC ABG pCO2 POC ABG pO2 ABG pO2 ABG HCO3 ABG O2 Saturation ABG Base Excess ABG Hemoglobin ABG Oxyhemoglobin ABG Sodium ABG Potassium ABG Chloride ABG Glucose Carboxyhemoglobin Sodium Potassium Chloride 107.2 H Carbon Dioxide BUN 48 H Creatinine Glucose 218 H POC Glucose Lactic Acid Calcium 7.9 L Phosphorus Magnesium Ferritin Direct Bilirubin AST 41 H ALT Ammonia Lactate Dehydrogenase Total Creatine Kinase CK-MB (CK-2) 17.8 H CK-MB (CK-2) Rel Index 18.1 H Troponin T 0.798 H* C-Reactive Protein Total Protein 5.7 L Albumin 2.7 L Prealbumin Triglycerides 173 H HDL Cholesterol 36 L Arterial Blood Glucose Arterial Blood Ionized Calcium Acetaminophen Crossmatch 03/10/21 03/10/21 03/10/21 05:35 11:43 18:17 WBC RBC Hgb Hct MCV RDW Plt Count Lymph % (Auto) [place] % (Auto) Lymph # (Auto) [place] # (Auto) Seg Neutrophils % Seg Neuts % (Manual) Lymphocytes % (Manual) Seg Neutrophils # Seg Neutrophils # Man Lymphocytes # (Manual) APTT D-Dimer ABG pH POC ABG pCO2 POC ABG pO2 ABG pO2 ABG HCO3 ABG O2 Saturation ABG Base Excess ABG Hemoglobin ABG Oxyhemoglobin ABG Sodium ABG Potassium ABG Chloride ABG Glucose Carboxyhemoglobin Sodium Potassium Chloride Carbon Dioxide BUN Creatinine Glucose POC Glucose 210 H 221 H 120 H Lactic Acid Calcium Phosphorus Magnesium Ferritin Direct Bilirubin AST ALT Ammonia Lactate Dehydrogenase Total Creatine Kinase CK-MB (CK-2) CK-MB (CK-2) Rel Index Troponin T C-Reactive Protein Total Protein Albumin Prealbumin Triglycerides HDL Cholesterol Arterial Blood Glucose Arterial Blood Ionized Calcium Acetaminophen Crossmatch 03/10/21 03/11/21 03/11/21 18:40 00:44 08:00 WBC RBC Hgb Hct MCV RDW Plt Count Lymph % (Auto) [place] % (Auto) Lymph # (Auto) [place] # (Auto) Seg Neutrophils % Seg Neuts % (Manual) Lymphocytes % (Manual) Seg Neutrophils # Seg Neutrophils # Man Lymphocytes # (Manual) APTT D-Dimer ABG pH POC ABG pCO2 POC ABG pO2 ABG pO2 ABG HCO3 ABG O2 Saturation ABG Base Excess ABG Hemoglobin ABG Oxyhemoglobin ABG Sodium ABG Potassium ABG Chloride ABG Glucose Carboxyhemoglobin Sodium Potassium Chloride Carbon Dioxide BUN Creatinine Glucose POC Glucose Lactic Acid Calcium Phosphorus Magnesium Ferritin Direct Bilirubin AST ALT Ammonia Lactate Dehydrogenase Total Creatine Kinase CK-MB (CK-2) CK-MB (CK-2) Rel Index Troponin T 0.477 H* D 0.430 H* 0.363 H* C-Reactive Protein Total Protein Albumin Prealbumin Triglycerides HDL Cholesterol Arterial Blood Glucose Arterial Blood Ionized Calcium Acetaminophen Crossmatch 03/11/21 03/11/21 03/11/21 08:00 08:00 11:26 WBC 14.7 H RBC 3.62 L Hgb 11.3 L Hct 34.4 L MCV 95 H RDW Plt Count Lymph % (Auto) [place] % (Auto) Lymph # (Auto) [place] # (Auto) Seg Neutrophils % Seg Neuts % (Manual) Lymphocytes % (Manual) Seg Neutrophils # Seg Neutrophils # Man Lymphocytes # (Manual) APTT D-Dimer ABG pH POC ABG pCO2 POC ABG pO2 ABG pO2 ABG HCO3 ABG O2 Saturation ABG Base Excess ABG Hemoglobin ABG Oxyhemoglobin ABG Sodium ABG Potassium ABG Chloride ABG Glucose Carboxyhemoglobin Sodium Potassium Chloride Carbon Dioxide BUN 34 H Creatinine Glucose 167 H POC Glucose 157 H Lactic Acid Calcium Phosphorus 2.40 L Magnesium 2.40 H Ferritin Direct Bilirubin AST ALT Ammonia Lactate Dehydrogenase Total Creatine Kinase CK-MB (CK-2) CK-MB (CK-2) Rel Index Troponin T C-Reactive Protein Total Protein 6.1 L Albumin 2.7 L Prealbumin Triglycerides HDL Cholesterol Arterial Blood Glucose Arterial Blood Ionized Calcium Acetaminophen Crossmatch 03/11/21 03/11/21 03/12/21 17:31 21:50 03:05 WBC RBC Hgb 10.7 L Hct 33.6 L MCV RDW Plt Count Lymph % (Auto) [place] % (Auto) Lymph # (Auto) [place] # (Auto) Seg Neutrophils % Seg Neuts % (Manual) Lymphocytes % (Manual) Seg Neutrophils # Seg Neutrophils # Man Lymphocytes # (Manual) APTT D-Dimer ABG pH POC ABG pCO2 POC ABG pO2 ABG pO2 ABG HCO3 ABG O2 Saturation ABG Base Excess ABG Hemoglobin ABG Oxyhemoglobin ABG Sodium ABG Potassium ABG Chloride ABG Glucose Carboxyhemoglobin Sodium Potassium Chloride Carbon Dioxide BUN Creatinine Glucose POC Glucose 154 H 139 H Lactic Acid Calcium Phosphorus Magnesium Ferritin Direct Bilirubin AST ALT Ammonia Lactate Dehydrogenase Total Creatine Kinase CK-MB (CK-2) CK-MB (CK-2) Rel Index Troponin T C-Reactive Protein Total Protein Albumin Prealbumin Triglycerides HDL Cholesterol Arterial Blood Glucose Arterial Blood Ionized Calcium Acetaminophen Crossmatch 03/12/21 03/12/21 03/12/21 04:40 04:40 06:03 WBC 11.6 H RBC 3.28 L Hgb 10.3 L Hct 31.3 L MCV 96 H RDW Plt Count Lymph % (Auto) [place] % (Auto) Lymph # (Auto) [place] # (Auto) Seg Neutrophils % Seg Neuts % (Manual) 92.0 H Lymphocytes % (Manual) 3.0 L Seg Neutrophils # Seg Neutrophils # Man 10.7 H Lymphocytes # (Manual) 0.3 L APTT D-Dimer ABG pH POC ABG pCO2 POC ABG pO2 ABG pO2 ABG HCO3 ABG O2 Saturation ABG Base Excess ABG Hemoglobin ABG Oxyhemoglobin ABG Sodium ABG Potassium ABG Chloride ABG Glucose Carboxyhemoglobin Sodium Potassium Chloride 108.7 H Carbon Dioxide BUN 28 H Creatinine Glucose 137 H POC Glucose 137 H Lactic Acid Calcium 8.2 L Phosphorus Magnesium Ferritin Direct Bilirubin AST ALT Ammonia Lactate Dehydrogenase Total Creatine Kinase CK-MB (CK-2) CK-MB (CK-2) Rel Index Troponin T 0.261 H* D C-Reactive Protein Total Protein Albumin Prealbumin Triglycerides HDL Cholesterol Arterial Blood Glucose Arterial Blood Ionized Calcium Acetaminophen Crossmatch 03/12/21 03/12/21 03/13/21 14:17 17:28 04:09 WBC RBC Hgb 9.1 L Hct 27.7 L MCV RDW Plt Count Lymph % (Auto) [place] % (Auto) Lymph # (Auto) [place] # (Auto) Seg Neutrophils % Seg Neuts % (Manual) Lymphocytes % (Manual) Seg Neutrophils # Seg Neutrophils # Man Lymphocytes # (Manual) APTT D-Dimer ABG pH POC ABG pCO2 POC ABG pO2 ABG pO2 ABG HCO3 ABG O2 Saturation ABG Base Excess ABG Hemoglobin ABG Oxyhemoglobin ABG Sodium ABG Potassium ABG Chloride ABG Glucose Carboxyhemoglobin Sodium Potassium Chloride Carbon Dioxide BUN Creatinine Glucose POC Glucose 165 H 111 H Lactic Acid Calcium Phosphorus Magnesium Ferritin Direct Bilirubin AST ALT Ammonia Lactate Dehydrogenase Total Creatine Kinase CK-MB (CK-2) CK-MB (CK-2) Rel Index Troponin T C-Reactive Protein Total Protein Albumin Prealbumin Triglycerides HDL Cholesterol Arterial Blood Glucose Arterial Blood Ionized Calcium Acetaminophen Crossmatch 03/13/21 03/13/21 03/13/21 05:04 11:28 14:25 WBC RBC Hgb 6.7 L Hct 19.7 L* D MCV RDW Plt Count Lymph % (Auto) [place] % (Auto) Lymph # (Auto) [place] # (Auto) Seg Neutrophils % Seg Neuts % (Manual) Lymphocytes % (Manual) Seg Neutrophils # Seg Neutrophils # Man Lymphocytes # (Manual) APTT D-Dimer ABG pH POC ABG pCO2 POC ABG pO2 ABG pO2 ABG HCO3 ABG O2 Saturation ABG Base Excess ABG Hemoglobin ABG Oxyhemoglobin ABG Sodium ABG Potassium ABG Chloride ABG Glucose Carboxyhemoglobin Sodium Potassium Chloride Carbon Dioxide BUN Creatinine Glucose POC Glucose 113 H 148 H Lactic Acid Calcium Phosphorus Magnesium Ferritin Direct Bilirubin AST ALT Ammonia Lactate Dehydrogenase Total Creatine Kinase CK-MB (CK-2) CK-MB (CK-2) Rel Index Troponin T C-Reactive Protein Total Protein Albumin Prealbumin Triglycerides HDL Cholesterol Arterial Blood Glucose Arterial Blood Ionized Calcium Acetaminophen Crossmatch 03/13/21 03/13/21 03/13/21 15:22 17:25 19:16 WBC RBC Hgb Hct MCV RDW Plt Count Lymph % (Auto) [place] % (Auto) Lymph # (Auto) [place] # (Auto) Seg Neutrophils % Seg Neuts % (Manual) Lymphocytes % (Manual) Seg Neutrophils # Seg Neutrophils # Man Lymphocytes # (Manual) APTT D-Dimer ABG pH 7.174 L POC ABG pCO2 POC ABG pO2 78.7 L ABG pO2 ABG HCO3 ABG O2 Saturation ABG Base Excess ABG Hemoglobin 5.5 L ABG Oxyhemoglobin 88.8 L ABG Sodium 135.1 L ABG Potassium 5.2 H ABG Chloride 109.0 H ABG Glucose 96 H Carboxyhemoglobin Sodium Potassium Chloride Carbon Dioxide BUN Creatinine Glucose POC Glucose 47 L Lactic Acid Calcium Phosphorus Magnesium Ferritin Direct Bilirubin AST ALT Ammonia Lactate Dehydrogenase Total Creatine Kinase CK-MB (CK-2) CK-MB (CK-2) Rel Index Troponin T C-Reactive Protein Total Protein Albumin Prealbumin Triglycerides HDL Cholesterol Arterial Blood Glucose 96 H Arterial Blood Ionized Calcium 4.4 L Acetaminophen Crossmatch See Detail 03/13/21 03/13/21 03/13/21 20:06 20:16 20:24 WBC RBC Hgb 8.1 L Hct 24.1 L MCV RDW Plt Count Lymph % (Auto) [place] % (Auto) Lymph # (Auto) [place] # (Auto) Seg Neutrophils % Seg Neuts % (Manual) Lymphocytes % (Manual) Seg Neutrophils # Seg Neutrophils # Man Lymphocytes # (Manual) APTT D-Dimer ABG pH 7.094 L POC ABG pCO2 64.0 H POC ABG pO2 68.2 L ABG pO2 ABG HCO3 ABG O2 Saturation ABG Base Excess ABG Hemoglobin 7.9 L ABG Oxyhemoglobin 84.6 L ABG Sodium ABG Potassium 4.9 H ABG Chloride ABG Glucose 220 H Carboxyhemoglobin Sodium Potassium Chloride Carbon Dioxide BUN Creatinine Glucose POC Glucose 188 H Lactic Acid Calcium Phosphorus Magnesium Ferritin Direct Bilirubin AST ALT Ammonia Lactate Dehydrogenase Total Creatine Kinase CK-MB (CK-2) CK-MB (CK-2) Rel Index Troponin T C-Reactive Protein Total Protein Albumin Prealbumin Triglycerides HDL Cholesterol Arterial Blood Glucose 220 H Arterial Blood Ionized Calcium 4.1 L Acetaminophen Crossmatch 03/13/21 03/14/21 03/14/21 23:17 04:00 04:00 WBC 17.9 H RBC 2.55 L Hgb 7.8 L Hct 23.1 L MCV RDW Plt Count 111 L Lymph % (Auto) [place] % (Auto) Lymph # (Auto) [place] # (Auto) Seg Neutrophils % Seg Neuts % (Manual) 99.0 H Lymphocytes % (Manual) Seg Neutrophils # Seg Neutrophils # Man 17.7 H Lymphocytes # (Manual) 0.0 L APTT D-Dimer ABG pH POC ABG pCO2 POC ABG pO2 ABG pO2 ABG HCO3 ABG O2 Saturation ABG Base Excess ABG Hemoglobin ABG Oxyhemoglobin ABG Sodium ABG Potassium ABG Chloride ABG Glucose Carboxyhemoglobin Sodium Potassium Chloride Carbon Dioxide 35 H BUN 48 H Creatinine 1.7 H D Glucose 258 H POC Glucose 244 H Lactic Acid Calcium 7.2 L Phosphorus Magnesium Ferritin Direct Bilirubin AST ALT Ammonia Lactate Dehydrogenase Total Creatine Kinase CK-MB (CK-2) CK-MB (CK-2) Rel Index Troponin T C-Reactive Protein Total Protein Albumin Prealbumin Triglycerides HDL Cholesterol Arterial Blood Glucose Arterial Blood Ionized Calcium Acetaminophen Crossmatch 03/14/21 03/14/21 03/14/21 05:15 10:24 14:54 WBC RBC Hgb 8.3 L Hct 24.1 L MCV RDW Plt Count Lymph % (Auto) [place] % (Auto) Lymph # (Auto) [place] # (Auto) Seg Neutrophils % Seg Neuts % (Manual) Lymphocytes % (Manual) Seg Neutrophils # Seg Neutrophils # Man Lymphocytes # (Manual) APTT D-Dimer ABG pH 7.294 L POC ABG pCO2 69.4 H POC ABG pO2 128.0 H ABG pO2 ABG HCO3 ABG O2 Saturation ABG Base Excess ABG Hemoglobin 10.2 L ABG Oxyhemoglobin ABG Sodium ABG Potassium ABG Chloride ABG Glucose 130 H Carboxyhemoglobin 0.3 L Sodium Potassium Chloride Carbon Dioxide BUN Creatinine Glucose POC Glucose 203 H Lactic Acid Calcium Phosphorus Magnesium Ferritin Direct Bilirubin AST ALT Ammonia Lactate Dehydrogenase Total Creatine Kinase CK-MB (CK-2) CK-MB (CK-2) Rel Index Troponin T C-Reactive Protein Total Protein Albumin Prealbumin Triglycerides HDL Cholesterol Arterial Blood Glucose 130 H Arterial Blood Ionized Calcium 4.1 L Acetaminophen Crossmatch 03/14/21 03/14/21 03/15/21 17:37 23:39 04:00 WBC RBC Hgb 8.0 L Hct 23.4 L MCV RDW Plt Count 119 L Lymph % (Auto) [place] % (Auto) Lymph # (Auto) [place] # (Auto) Seg Neutrophils % Seg Neuts % (Manual) Lymphocytes % (Manual) Seg Neutrophils # Seg Neutrophils # Man Lymphocytes # (Manual) APTT D-Dimer ABG pH POC ABG pCO2 POC ABG pO2 ABG pO2 ABG HCO3 ABG O2 Saturation ABG Base Excess ABG Hemoglobin ABG Oxyhemoglobin ABG Sodium ABG Potassium ABG Chloride ABG Glucose Carboxyhemoglobin Sodium Potassium Chloride Carbon Dioxide BUN Creatinine Glucose POC Glucose 110 H 112 H Lactic Acid Calcium Phosphorus Magnesium Ferritin Direct Bilirubin AST ALT Ammonia Lactate Dehydrogenase Total Creatine Kinase CK-MB (CK-2) CK-MB (CK-2) Rel Index Troponin T C-Reactive Protein Total Protein Albumin Prealbumin Triglycerides HDL Cholesterol Arterial Blood Glucose Arterial Blood Ionized Calcium Acetaminophen Crossmatch 03/15/21 03/15/21 03/15/21 04:00 05:54 10:32 WBC RBC Hgb Hct MCV RDW Plt Count Lymph % (Auto) [place] % (Auto) Lymph # (Auto) [place] # (Auto) Seg Neutrophils % Seg Neuts % (Manual) Lymphocytes % (Manual) Seg Neutrophils # Seg Neutrophils # Man Lymphocytes # (Manual) APTT D-Dimer ABG pH POC ABG pCO2 71.5 H POC ABG pO2 ABG pO2 ABG HCO3 ABG O2 Saturation ABG Base Excess ABG Hemoglobin 7.9 L ABG Oxyhemoglobin ABG Sodium ABG Potassium ABG Chloride ABG Glucose 160 H Carboxyhemoglobin Sodium Potassium Chloride Carbon Dioxide 39 H BUN 41 H Creatinine 1.6 H Glucose 153 H POC Glucose 131 H Lactic Acid Calcium 7.0 L Phosphorus Magnesium Ferritin Direct Bilirubin AST ALT Ammonia Lactate Dehydrogenase Total Creatine Kinase CK-MB (CK-2) CK-MB (CK-2) Rel Index Troponin T C-Reactive Protein Total Protein Albumin Prealbumin Triglycerides HDL Cholesterol Arterial Blood Glucose 160 H Arterial Blood Ionized Calcium 3.9 L Acetaminophen Crossmatch 03/15/21 03/15/21 03/15/21 11:19 11:37 11:40 WBC RBC Hgb Hct MCV RDW Plt Count Lymph % (Auto) [place] % (Auto) Lymph # (Auto) [place] # (Auto) Seg Neutrophils % Seg Neuts % (Manual) Lymphocytes % (Manual) Seg Neutrophils # Seg Neutrophils # Man Lymphocytes # (Manual) APTT D-Dimer ABG pH POC ABG pCO2 POC ABG pO2 ABG pO2 ABG HCO3 ABG O2 Saturation ABG Base Excess ABG Hemoglobin ABG Oxyhemoglobin ABG Sodium ABG Potassium ABG Chloride ABG Glucose Carboxyhemoglobin Sodium Potassium Chloride Carbon Dioxide BUN Creatinine Glucose 317 H POC Glucose 28 L 25 L Lactic Acid Calcium Phosphorus Magnesium Ferritin Direct Bilirubin AST ALT Ammonia Lactate Dehydrogenase Total Creatine Kinase CK-MB (CK-2) CK-MB (CK-2) Rel Index Troponin T C-Reactive Protein Total Protein Albumin Prealbumin Triglycerides HDL Cholesterol Arterial Blood Glucose Arterial Blood Ionized Calcium Acetaminophen Crossmatch 03/15/21 03/15/21 03/15/21 12:33 20:05 20:15 WBC RBC Hgb 8.0 L Hct 23.5 L MCV RDW Plt Count Lymph % (Auto) [place] % (Auto) Lymph # (Auto) [place] # (Auto) Seg Neutrophils % Seg Neuts % (Manual) Lymphocytes % (Manual) Seg Neutrophils # Seg Neutrophils # Man Lymphocytes # (Manual) APTT D-Dimer ABG pH POC ABG pCO2 63.7 H POC ABG pO2 43.1 L ABG pO2 ABG HCO3 ABG O2 Saturation ABG Base Excess ABG Hemoglobin 8.1 L ABG Oxyhemoglobin 76.4 L ABG Sodium 134.8 L ABG Potassium ABG Chloride ABG Glucose 171 H Carboxyhemoglobin Sodium Potassium Chloride Carbon Dioxide BUN Creatinine Glucose POC Glucose 145 H Lactic Acid Calcium Phosphorus Magnesium Ferritin Direct Bilirubin AST ALT Ammonia Lactate Dehydrogenase Total Creatine Kinase CK-MB (CK-2) CK-MB (CK-2) Rel Index Troponin T C-Reactive Protein Total Protein Albumin Prealbumin Triglycerides HDL Cholesterol Arterial Blood Glucose 171 H Arterial Blood Ionized Calcium 3.9 L Acetaminophen Crossmatch 03/16/21 03/16/21 03/16/21 04:05 09:53 09:53 WBC 17.9 H RBC 2.51 L Hgb 7.8 L Hct 23.1 L MCV RDW Plt Count 96 L 114 L Lymph % (Auto) [place] % (Auto) Lymph # (Auto) [place] # (Auto) Seg Neutrophils % Seg Neuts % (Manual) Lymphocytes % (Manual) Seg Neutrophils # Seg Neutrophils # Man Lymphocytes # (Manual) APTT D-Dimer ABG pH POC ABG pCO2 POC ABG pO2 ABG pO2 ABG HCO3 ABG O2 Saturation ABG Base Excess ABG Hemoglobin ABG Oxyhemoglobin ABG Sodium ABG Potassium ABG Chloride ABG Glucose Carboxyhemoglobin Sodium Potassium Chloride Carbon Dioxide 42 H* BUN 30 H Creatinine Glucose 220 H POC Glucose Lactic Acid Calcium 7.4 L Phosphorus Magnesium Ferritin Direct Bilirubin AST ALT Ammonia Lactate Dehydrogenase Total Creatine Kinase CK-MB (CK-2) CK-MB (CK-2) Rel Index Troponin T C-Reactive Protein Total Protein Albumin Prealbumin Triglycerides HDL Cholesterol Arterial Blood Glucose Arterial Blood Ionized Calcium Acetaminophen Crossmatch 03/16/21 03/16/21 03/16/21 11:36 11:39 21:59 WBC RBC Hgb Hct MCV RDW Plt Count Lymph % (Auto) [place] % (Auto) Lymph # (Auto) [place] # (Auto) Seg Neutrophils % Seg Neuts % (Manual) Lymphocytes % (Manual) Seg Neutrophils # Seg Neutrophils # Man Lymphocytes # (Manual) APTT D-Dimer ABG pH POC ABG pCO2 88.2 H POC ABG pO2 50.2 L ABG pO2 ABG HCO3 ABG O2 Saturation ABG Base Excess ABG Hemoglobin 8.1 L ABG Oxyhemoglobin 80.2 L ABG Sodium 135.4 L ABG Potassium ABG Chloride 97.0 L ABG Glucose 98 H Carboxyhemoglobin Sodium Potassium Chloride Carbon Dioxide BUN Creatinine Glucose POC Glucose 58 L 210 H Lactic Acid Calcium Phosphorus Magnesium Ferritin Direct Bilirubin AST ALT Ammonia Lactate Dehydrogenase Total Creatine Kinase CK-MB (CK-2) CK-MB (CK-2) Rel Index Troponin T C-Reactive Protein Total Protein Albumin Prealbumin Triglycerides HDL Cholesterol Arterial Blood Glucose 98 H Arterial Blood Ionized Calcium 4.0 L Acetaminophen Crossmatch 03/17/21 03/17/21 03/17/21 00:13 00:35 00:55 WBC RBC Hgb Hct MCV RDW Plt Count Lymph % (Auto) [place] % (Auto) Lymph # (Auto) [place] # (Auto) Seg Neutrophils % Seg Neuts % (Manual) Lymphocytes % (Manual) Seg Neutrophils # Seg Neutrophils # Man Lymphocytes # (Manual) APTT D-Dimer ABG pH POC ABG pCO2 69.0 H POC ABG pO2 ABG pO2 ABG HCO3 ABG O2 Saturation ABG Base Excess ABG Hemoglobin 7.2 L ABG Oxyhemoglobin ABG Sodium 135.0 L ABG Potassium ABG Chloride ABG Glucose 110 H Carboxyhemoglobin Sodium Potassium Chloride Carbon Dioxide BUN Creatinine Glucose POC Glucose 119 H Lactic Acid Calcium Phosphorus Magnesium Ferritin Direct Bilirubin 0.3 H AST 229 H ALT 426 H Ammonia Lactate Dehydrogenase Total Creatine Kinase CK-MB (CK-2) CK-MB (CK-2) Rel Index Troponin T C-Reactive Protein Total Protein 4.6 L Albumin 2.5 L Prealbumin Triglycerides HDL Cholesterol Arterial Blood Glucose 110 H Arterial Blood Ionized Calcium 4.0 L Acetaminophen Crossmatch 03/17/21 03/17/21 03/17/21 00:55 06:30 06:30 WBC 25.9 H RBC 2.16 L Hgb 6.7 L Hct 20.0 L MCV RDW Plt Count 124 L Lymph % (Auto) [place] % (Auto) Lymph # (Auto) [place] # (Auto) Seg Neutrophils % Seg Neuts % (Manual) Lymphocytes % (Manual) Seg Neutrophils # Seg Neutrophils # Man Lymphocytes # (Manual) APTT 44.5 H D-Dimer ABG pH POC ABG pCO2 POC ABG pO2 ABG pO2 ABG HCO3 ABG O2 Saturation ABG Base Excess ABG Hemoglobin ABG Oxyhemoglobin ABG Sodium ABG Potassium ABG Chloride ABG Glucose Carboxyhemoglobin Sodium Potassium Chloride Carbon Dioxide 42 H* BUN 30 H Creatinine Glucose 171 H POC Glucose Lactic Acid Calcium 7.5 L Phosphorus Magnesium Ferritin Direct Bilirubin AST ALT Ammonia Lactate Dehydrogenase Total Creatine Kinase CK-MB (CK-2) CK-MB (CK-2) Rel Index Troponin T C-Reactive Protein Total Protein Albumin Prealbumin Triglycerides HDL Cholesterol Arterial Blood Glucose Arterial Blood Ionized Calcium Acetaminophen Crossmatch 03/17/21 03/17/21 09:20 10:13 WBC RBC Hgb Hct MCV RDW Plt Count Lymph % (Auto) [place] % (Auto) Lymph # (Auto) [place] # (Auto) Seg Neutrophils % Seg Neuts % (Manual) Lymphocytes % (Manual) Seg Neutrophils # Seg Neutrophils # Man Lymphocytes # (Manual) APTT 63.2 H* D-Dimer ABG pH POC ABG pCO2 POC ABG pO2 ABG pO2 ABG HCO3 ABG O2 Saturation ABG Base Excess ABG Hemoglobin ABG Oxyhemoglobin ABG Sodium ABG Potassium ABG Chloride ABG Glucose Carboxyhemoglobin Sodium Potassium Chloride Carbon Dioxide BUN Creatinine Glucose POC Glucose Lactic Acid Calcium Phosphorus Magnesium Ferritin Direct Bilirubin AST ALT Ammonia Lactate Dehydrogenase Total Creatine Kinase CK-MB (CK-2) CK-MB (CK-2) Rel Index Troponin T C-Reactive Protein Total Protein Albumin Prealbumin Triglycerides HDL Cholesterol Arterial Blood Glucose Arterial Blood Ionized Calcium Acetaminophen Crossmatch See Detail
--- NOTE | 2021-03-17 12:24 | Progress Note ---
Assessment and Plan - Patient Problems (1) Acute myocardial infarction Current Visit: Yes Status: Acute Plan to address problem: Patient will be treated with optimal medical therapy as tolerated. Since his mental status has improved he is able to swallow pills, we will immediately reload him with Plavix 300 mg and continue 75 mg daily with aspirin. We will watch his hemogram for possible bleeding on dual oral antiplatelet therapy. His prognosis is guarded. Subjective Date of service: 03/17/21 Principal diagnosis: Respiratory distress, SC, Pseudoaneurysm Interval history: The patient is more awake today, with improved mental status, currently on facemask oxygen. Over the last 3 days he has been obtunded, with respiratory insufficiency requiring BiPAP, and therefore unable to be given his oral antiplatelet therapy. An attempt at placement of an NG tube was unsuccessful. It is also noted that he was started on argatroban by hematology, and this has been immediately stopped today, due to the further evidence of possible bleeding with a drop in his hematocrit. Objective Vital Signs Temp Pulse Pulse Resp Resp BP Pulse Ox 03/17/21 11:39 97.9 F 93 H 18 149/58 99 03/17/21 11:17 93 H 23 150/54 100 03/17/21 11:16 98.4 F 03/17/21 11:11 92 H 27 H 128/56 99 03/17/21 11:02 98 F 03/17/21 11:00 91 H 25 H 128/56 98 03/17/21 10:51 91 H 22 154/64 98 03/17/21 10:41 91 H 19 154/59 100 03/17/21 10:31 89 20 154/59 100 03/17/21 10:21 90 20 142/59 97 03/17/21 10:11 91 H 16 158/63 97 03/17/21 10:00 93 H 22 158/63 70 L 03/17/21 09:55 89 22 03/17/21 09:51 89 22 138/57 99 03/17/21 09:41 90 23 135/54 98 03/17/21 09:30 88 21 135/54 98 03/17/21 09:21 89 21 153/53 99 03/17/21 09:11 87 20 143/63 99 03/17/21 09:08 98 03/17/21 09:00 86 18 143/63 97 03/17/21 08:51 86 20 148/61 96 03/17/21 08:41 93 H 22 146/55 95 03/17/21 08:31 95 H 146/55 03/17/21 08:30 96 H 24 146/55 98 03/17/21 08:21 97 H 21 148/67 97 03/17/21 08:11 101 H 25 H 148/67 93 03/17/21 08:00 98.4 F 94 H 24 148/67 97 03/17/21 07:50 92 H 21 176/68 99 03/17/21 07:40 96 H 18 176/60 99 03/17/21 07:31 93 H 20 176/60 98 03/17/21 07:21 95 H 22 169/49 99 03/17/21 07:11 88 18 161/62 100 03/17/21 07:00 86 21 161/62 99 03/17/21 06:51 90 16 151/62 100 03/17/21 06:41 82 17 158/63 100 03/17/21 06:30 88 16 158/63 99 03/17/21 06:21 90 16 147/60 100 03/17/21 06:11 89 13 161/56 99 03/17/21 06:01 89 18 161/56 99 03/17/21 05:50 101 H 19 181/63 98 03/17/21 05:41 96 H 21 152/49 99 03/17/21 05:31 84 17 152/49 100 03/17/21 05:00 85 17 162/56 100 03/17/21 04:30 87 20 142/56 100 03/17/21 04:00 98.7 F 86 15 153/66 100 03/17/21 03:56 20 92 03/17/21 03:51 98.7 F 03/17/21 03:30 87 19 169/63 100 03/17/21 03:00 86 19 167/57 100 03/17/21 02:31 85 17 160/55 100 03/17/21 02:07 89 23 152/56 99 03/17/21 02:00 86 18 157/59 100 03/17/21 01:30 89 22 169/53 99 03/17/21 01:00 88 19 121/58 98 03/17/21 00:30 91 H 20 141/48 97 08/10/21 00:01 92 H 21 124/55 94 03/17/21 00:00 98.6 F 20 92 03/16/21 23:31 97 H 22 119/50 87 03/16/21 23:01 101 H 21 137/48 83 L 03/16/21 22:31 102 H 21 97/67 03/16/21 22:01 97 H 21 102/84 51 L 03/16/21 21:43 103 H 22 68 L 03/16/21 21:31 100 H 20 134/58 80 L 03/16/21 21:15 88 26 H 03/16/21 21:01 101 H 19 118/71 83 L 03/16/21 20:53 99 H 20 129/72 89 03/16/21 20:30 90 16 150/69 97 03/16/21 20:00 97.7 F 81 20 44/28 92 03/16/21 19:30 81 20 100 03/16/21 19:00 84 22 162/51 100 03/16/21 18:30 88 20 162/51 100 03/16/21 18:00 91 H 20 156/54 100 03/16/21 17:55 88 20 156/54 100 03/16/21 17:30 90 20 156/54 99 03/16/21 17:20 97.2 F L 03/16/21 17:00 95 H 19 131/59 100 03/16/21 16:49 120 H 03/16/21 16:30 99 H 20 131/59 97 03/16/21 16:00 98.7 F 103 H 24 131/59 99 03/16/21 15:38 100 03/16/21 15:30 75 17 132/69 100 03/16/21 15:00 73 17 132/69 100 03/16/21 14:30 72 15 140/70 97 03/16/21 14:22 79 16 140/70 100 03/16/21 14:00 73 16 140/70 97 03/16/21 13:30 77 21 138/47 99 03/16/21 13:00 72 17 138/47 94 03/16/21 12:30 92 H 21 188/72 95 - Physical Examination General: Other (Lethargic but no acute respiratory distress) HEENT: Positive: PERRL Neck: Positive: neck supple Cardiac: Positive: Reg Rate and Rhythm Lungs: Positive: Decreased Breath Sounds Neuro: Positive: Weakness Abdomen: Positive: Soft Skin: Positive: Clear Extremities: Absent: edema - Labs and Meds Cardiac Enzymes 03/17/21 Range/Units 00:55 AST 229 H (5-40) units/L Coagulation 03/17/21 03/17/21 Range/Units 00:55 10:13 APTT 44.5 H 63.2 H* (24.2-36.6) Sec. CBC 03/17/21 Range/Units 06:30 WBC 25.9 H (4.5-11.0) K/mm3 RBC 2.16 L (3.65-5.03) M/mm3 Hgb 6.7 L (11.8-15.2) gm/dl Hct 20.0 L (35.5-45.6) % Plt Count 124 L (140-440) K/mm3 Comprehensive Metabolic Panel 03/17/21 03/17/21 Range/Units 00:55 06:30 Sodium 144 (137-145) mmol/L Potassium 3.9 (3.6-5.0) mmol/L Chloride 99.1 (98-107) mmol/L Carbon Dioxide 42 H* (22-30) mmol/L BUN 30 H (9-20) mg/dL Creatinine 1.1 (0.8-1.3) mg/dL Glucose 171 H (75-100) mg/dL Calcium 7.5 L (8.4-10.2) mg/dL Direct Bilirubin 0.3 H (0-0.2) mg/dL Indirect Bilirubin 0.4 mg/dL AST 229 H (5-40) units/L ALT 426 H (7-56) units/L Alkaline Phosphatase 41 (35-129) units/L Total Protein 4.6 L (6.3-8.2) g/dL Albumin 2.5 L (3.9-5) g/dL
[2021-03-17 12:36] LABS: Total Cells Counted 100
[2021-03-17 12:37] LABS: Promyelocytes # (Manual) 85.9 K/mm3
[2021-03-17 12:39] LABS: Hypochromasia 2+
[2021-03-17 12:40] LABS: Macrocytosis Few; Platelet Estimate Consistent w Auto
[2021-03-17] MEDS ORDERED: hydrALAZINE 20 MG/1 ML INJ IV ONE (13:00)
[2021-03-17] MEDS: DEXTROSE 10% IN WATER 1,000 ML IV SCH (13:25)
--- NOTE | 2021-03-17 13:27 | Gastroenterology Progress Note ---
Assessment and Plan # Anemia # Suspected GI bleed - per nursing, noted to have black stool on 03/13/2021. Heparin drip was held. Drop H/H to 6 and received blood transfusion. Hgb stable at 8. - CT showing moderate right iliopsoas hematoma. - suspect possible upper GI bleed with PUD as well given report of black stools in the setting of anticoagulation. - no BM overnight. No signs of active bleeding. - Hgb trended down and receiving 1 unit of PRBC today but no overt signs of GI bleeding. rec - supportive care - cont with PPI IV - monitor H/H and for signs of bleeding. - patient currently on plavix and ASA for recent PCI for STEMI/cardiac arrest. No GI contraindication for DAPT given no signs of active GI bleeding. - will follow. - discussed with Dr. Jeffery, [facility] and patient's daughter on the phone. - Patient Problems (1) Anemia Current Visit: Yes Status: Chronic Qualifiers: Anemia type: unspecified type Qualified Code(s): D64.9 - Anemia, unspecified Subjective Date of service: 03/17/21 Principal diagnosis: Respiratory distress, DE, Pseudoaneurysm Interval history: Patient more awake this morning. has been off Bipap this morning. Points to his right toe. No BM per nursing. Objective - Constitutional Vitals: Temp Pulse Resp BP Pulse Ox 99 F 92 H 22 185/57 98 03/17/21 12:17 03/17/21 13:09 03/17/21 12:17 03/17/21 13:09 03/17/21 12:17 General appearance: no acute distress - EENT ENT: hearing intact - Respiratory Respiratory effort: labored Respiratory: bilateral: diminished - Cardiovascular Rhythm: regular Heart Sounds: Present: S1 & S2 - Gastrointestinal General gastrointestinal: Present: soft, non-tender, non-distended - Neurologic Neurological: other (alert) - Labs CBC & Chem 7: 03/17/21 06:30 03/17/21 06:30 Labs: Laboratory Results - last 24 hr 03/13/21 03/16/21 03/16/21 15:22 17:14 21:59 WBC RBC Hgb Hct MCV MCH MCHC RDW Plt Count Add Manual Diff Total Counted Seg Neutrophils % Seg Neuts % (Manual) Lymphocytes % (Manual) Nucleated RBC % Seg Neutrophils # Man Band Neutrophils # Lymphocytes # (Manual) Abs React Lymphs (Man) Monocytes # (Manual) Eosinophils # (Manual) Basophils # (Manual) Metamyelocytes # Myelocytes # Promyelocytes # Blast Cells # WBC Morphology Hypersegmented Neuts Hyposegmented Neuts Hypogranular Neuts Smudge Cells Toxic Granulation Toxic Vacuolation Dohle Bodies Pelger-Huet Anomaly Maritza Rods Platelet Estimate Clumped Platelets Plt Clumps, EDTA Large Platelets Giant Platelets Platelet Satelliting Plt Morphology Comment RBC Morphology Dimorphic RBCs Polychromasia Hypochromasia Poikilocytosis Anisocytosis Microcytosis Macrocytosis Spherocytes Pappenheimer Bodies Sickle Cells Target Cells Tear Drop Cells Ovalocytes Helmet Cells [place] Bodies [place] Rings [place] Cells Bite Cells Crenated Cell Elliptocytes Acanthocytes (Spur) Rouleaux Hemoglobin C Crystals Schistocytes Malaria parasites Timoteo Bodies Hem Pathologist Commnt APTT ABG pH 7.324 POC ABG pCO2 88.2 H POC ABG pO2 50.2 L POC ABG HCO3 44.8 ABG O2 Saturation 81.2 POC ABG Base Excess 16.5 ABG Hemoglobin 8.1 L ABG Oxyhemoglobin 80.2 L ABG Methemoglobin 0.3 ABG Sodium 135.4 L ABG Potassium 4.0 ABG Chloride 97.0 L ABG Glucose 98 H Carboxyhemoglobin 0.9 FiO2 % 70.0 Sodium Potassium Chloride Carbon Dioxide Anion Gap BUN Creatinine Estimated GFR BUN/Creatinine Ratio Glucose POC Glucose 84 Calcium Total Bilirubin Direct Bilirubin Indirect Bilirubin AST ALT Alkaline Phosphatase Total Protein Albumin Albumin/Globulin Ratio Arterial Blood Glucose 98 H Arterial Blood Ionized Calcium 4.0 L Blood Type B POSITIVE Antibody Screen Negative Crossmatch See Detail 03/17/21 03/17/21 03/17/21 00:13 00:35 00:55 WBC RBC Hgb Hct MCV MCH MCHC RDW Plt Count Add Manual Diff Total Counted Seg Neutrophils % Seg Neuts % (Manual) Lymphocytes % (Manual) Nucleated RBC % Seg Neutrophils # Man Band Neutrophils # Lymphocytes # (Manual) Abs React Lymphs (Man) Monocytes # (Manual) Eosinophils # (Manual) Basophils # (Manual) Metamyelocytes # Myelocytes # Promyelocytes # Blast Cells # WBC Morphology Hypersegmented Neuts Hyposegmented Neuts Hypogranular Neuts Smudge Cells Toxic Granulation Toxic Vacuolation Dohle Bodies Pelger-Huet Anomaly Maritza Rods Platelet Estimate Clumped Platelets Plt Clumps, EDTA Large Platelets Giant Platelets Platelet Satelliting Plt Morphology Comment RBC Morphology Dimorphic RBCs Polychromasia Hypochromasia Poikilocytosis Anisocytosis Microcytosis Macrocytosis Spherocytes Pappenheimer Bodies Sickle Cells Target Cells Tear Drop Cells Ovalocytes Helmet Cells [place] Bodies [place] Rings [place] Cells Bite Cells Crenated Cell Elliptocytes Acanthocytes (Spur) Rouleaux Hemoglobin C Crystals Schistocytes Malaria parasites [place]o Bodies Hem Pathologist Commnt APTT ABG pH 7.389 POC ABG pCO2 69.0 H POC ABG pO2 84.0 POC ABG HCO3 40.7 ABG O2 Saturation 95.3 POC ABG Base Excess 14.2 ABG Hemoglobin 7.2 L ABG Oxyhemoglobin 94.3 ABG Methemoglobin 0.3 ABG Sodium 135.0 L ABG Potassium 3.7 ABG Chloride 98.0 ABG Glucose 110 H Carboxyhemoglobin 0.8 FiO2 % Sodium Potassium Chloride Carbon Dioxide Anion Gap BUN Creatinine Estimated GFR BUN/Creatinine Ratio Glucose POC Glucose 119 H Calcium Total Bilirubin 0.70 Direct Bilirubin 0.3 H Indirect Bilirubin 0.4 AST 229 H ALT 426 H Alkaline Phosphatase 41 Total Protein 4.6 L Albumin 2.5 L Albumin/Globulin Ratio 1.2 Arterial Blood Glucose 110 H Arterial Blood Ionized Calcium 4.0 L Blood Type Antibody Screen Crossmatch 03/17/21 03/17/21 03/17/21 00:55 05:15 06:30 WBC 25.9 H RBC 2.16 L Hgb 6.7 L Hct 20.0 L MCV 92 MCH 31 MCHC 33 RDW 14.6 Plt Count 124 L Add Manual Diff Complete Total Counted 100 Seg Neutrophils % Spring Maker Seg Neuts % (Manual) 98.0 H Lymphocytes % (Manual) 2.0 L Nucleated RBC % Not Reportable Seg Neutrophils # Man 25.4 H Band Neutrophils # 0.0 Lymphocytes # (Manual) 0.5 L Abs React Lymphs (Man) 0.0 Monocytes # (Manual) 0.0 Eosinophils # (Manual) 0.0 Basophils # (Manual) 0.0 Metamyelocytes # 0.0 Myelocytes # 0.0 Promyelocytes # 85.9 Blast Cells # 0.0 WBC Morphology Not Reportable Hypersegmented Neuts Not Reportable Hyposegmented Neuts Not Reportable Hypogranular Neuts Not Reportable Smudge Cells Not Reportable Toxic Granulation Not Reportable Toxic Vacuolation Not Reportable Dohle Bodies Not Reportable Pelger-Huet Anomaly Not Reportable Maritza Rods Not Reportable Platelet Estimate Consistent w auto Clumped Platelets Not Reportable Plt Clumps, EDTA Not Reportable Large Platelets Not Reportable Giant Platelets Not Reportable Platelet Satelliting Not Reportable Plt Morphology Comment Not Reportable RBC Morphology Not Reportable Dimorphic RBCs Not Reportable Polychromasia Not Reportable Hypochromasia 2+ Poikilocytosis Not Reportable Anisocytosis Not Reportable Microcytosis Not Reportable Macrocytosis Few Spherocytes Not Reportable Pappenheimer Bodies Not Reportable Sickle Cells Not Reportable Target Cells Not Reportable Tear Drop Cells Not Reportable Ovalocytes Not Reportable Helmet Cells Not Reportable [place] Bodies Not Reportable [place] Rings Not Reportable [place] Cells Not Reportable Bite Cells Not Reportable Crenated Cell Not Reportable Elliptocytes Not Reportable Acanthocytes (Spur) Not Reportable Rouleaux Not Reportable Hemoglobin C Crystals Not Reportable Schistocytes Not Reportable Malaria parasites Not Reportable [place] Bodies Not Reportable Hem Pathologist Commnt No APTT 44.5 H ABG pH POC ABG pCO2 POC ABG pO2 POC ABG HCO3 ABG O2 Saturation POC ABG Base Excess ABG Hemoglobin ABG Oxyhemoglobin ABG Methemoglobin ABG Sodium ABG Potassium ABG Chloride ABG Glucose Carboxyhemoglobin FiO2 % Sodium Potassium Chloride Carbon Dioxide Anion Gap BUN Creatinine Estimated GFR BUN/Creatinine Ratio Glucose POC Glucose 101 Calcium Total Bilirubin Direct Bilirubin Indirect Bilirubin AST ALT Alkaline Phosphatase Total Protein Albumin Albumin/Globulin Ratio Arterial Blood Glucose Arterial Blood Ionized Calcium Blood Type Antibody Screen Crossmatch 03/17/21 03/17/21 03/17/21 06:30 09:20 10:13 WBC RBC Hgb Hct MCV MCH MCHC RDW Plt Count Add Manual Diff Total Counted Seg Neutrophils % Seg Neuts % (Manual) Lymphocytes % (Manual) Nucleated RBC % Seg Neutrophils # Man Band Neutrophils # Lymphocytes # (Manual) Abs React Lymphs (Man) Monocytes # (Manual) Eosinophils # (Manual) Basophils # (Manual) Metamyelocytes # Myelocytes # Promyelocytes # Blast Cells # WBC Morphology Hypersegmented Neuts Hyposegmented Neuts Hypogranular Neuts Smudge Cells Toxic Granulation Toxic Vacuolation Dohle Bodies Pelger-Huet Anomaly Maritza Rods Platelet Estimate Clumped Platelets Plt Clumps, EDTA Large Platelets Giant Platelets Platelet Satelliting Plt Morphology Comment RBC Morphology Dimorphic RBCs Polychromasia Hypochromasia Poikilocytosis Anisocytosis Microcytosis Macrocytosis Spherocytes Pappenheimer Bodies Sickle Cells Target Cells Tear Drop Cells Ovalocytes Helmet Cells [place] Bodies [place] Rings [place] Cells Bite Cells Crenated Cell Elliptocytes Acanthocytes (Spur) Rouleaux Hemoglobin C Crystals Schistocytes Malaria parasites [place] Bodies Hem Pathologist Commnt APTT 63.2 H* ABG pH POC ABG pCO2 POC ABG pO2 POC ABG HCO3 ABG O2 Saturation POC ABG Base Excess ABG Hemoglobin ABG Oxyhemoglobin ABG Methemoglobin ABG Sodium ABG Potassium ABG Chloride ABG Glucose Carboxyhemoglobin FiO2 % Sodium 144 Potassium 3.9 Chloride 99.1 Carbon Dioxide 42 H* Anion Gap 7 BUN 30 H Creatinine 1.1 Estimated GFR > 60 BUN/Creatinine Ratio 27 Glucose 171 H POC Glucose Calcium 7.5 L Total Bilirubin Direct Bilirubin Indirect Bilirubin AST ALT Alkaline Phosphatase Total Protein Albumin Albumin/Globulin Ratio Arterial Blood Glucose Arterial Blood Ionized Calcium Blood Type B POSITIVE Antibody Screen Negative Crossmatch See Detail 03/17/21 03/17/21 11:57 12:01 WBC RBC Hgb Hct MCV MCH MCHC RDW Plt Count Add Manual Diff Total Counted Seg Neutrophils % Seg Neuts % (Manual) Lymphocytes % (Manual) Nucleated RBC % Seg Neutrophils # Man Band Neutrophils # Lymphocytes # (Manual) Abs React Lymphs (Man) Monocytes # (Manual) Eosinophils # (Manual) Basophils # (Manual) Metamyelocytes # Myelocytes # Promyelocytes # Blast Cells # WBC Morphology Hypersegmented Neuts Hyposegmented Neuts Hypogranular Neuts Smudge Cells Toxic Granulation Toxic Vacuolation Dohle Bodies Pelger-Huet Anomaly Maritza Rods Platelet Estimate Clumped Platelets Plt Clumps, EDTA Large Platelets Giant Platelets Platelet Satelliting Plt Morphology Comment RBC Morphology Dimorphic RBCs Polychromasia Hypochromasia Poikilocytosis Anisocytosis Microcytosis Macrocytosis Spherocytes Pappenheimer Bodies Sickle Cells Target Cells Tear Drop Cells Ovalocytes Helmet Cells [place] Bodies [place] Rings [place] Cells Bite Cells Crenated Cell Elliptocytes Acanthocytes (Spur) Rouleaux Hemoglobin C Crystals Schistocytes Malaria parasites [place] Bodies Hem Pathologist Commnt APTT ABG pH POC ABG pCO2 POC ABG pO2 POC ABG HCO3 ABG O2 Saturation POC ABG Base Excess ABG Hemoglobin ABG Oxyhemoglobin ABG Methemoglobin ABG Sodium ABG Potassium ABG Chloride ABG Glucose Carboxyhemoglobin FiO2 % Sodium Potassium Chloride Carbon Dioxide Anion Gap BUN Creatinine Estimated GFR BUN/Creatinine Ratio Glucose POC Glucose 48 L 159 H Calcium Total Bilirubin Direct Bilirubin Indirect Bilirubin AST ALT Alkaline Phosphatase Total Protein Albumin Albumin/Globulin Ratio Arterial Blood Glucose Arterial Blood Ionized Calcium Blood Type Antibody Screen Crossmatch
--- NOTE | 2021-03-17 16:46 | Progress Note ---
Assessment and Plan 65-year-old male with cardiac issues requiring cardiac stenting with ischemic changes of the right foot. Patient has improving ischemic changes of the right foot which is cooler compared to the left foot and only has distal toe/forefoot ischemic changes. The patient's mental status has improved and his vasopressors has been weaned of f, but his hemoglobin is declining. He is being transfused 2 units packed red blood cells. Nonpalpable pedal pulses bilaterally. Nonpalpable femoral pulses due to ecchymoses over the groin. Left-sided ecchymoses much more extensive than the right. No pseudoaneurysms. Do not suspect HIT as arterial Doppler does not demonstrate thrombus, but only severe inflow disease from calcified plaques. Argatroban discontinued from decreasing hemoglobin. We will continue to follow. Once other issues have stabilized, then we can consider treatment of the right lower extremity arterial disease. Subjective Date of service: 03/17/21 Principal diagnosis: Respiratory distress, IL, Pseudoaneurysm Interval history: Patient is mentating better, and responsive, but mildly agitated. Has large ecchymoses of the groins, left side worse than right. Cannot palpate pseudoaneurysm, but do palpate hematoma. The right foot is less mottled today only with some distal forefoot ischemic changes. Patient is now off v asopressors. Hemoglobin is decreased with addition of argatroban. Objective - Constitutional Vitals: Vital Signs - 12hr 03/17/21 03/17/21 03/17/21 05:00 05:31 05:41 Temperature Pulse Rate 85 84 96 H Pulse Rate [ Bilateral Throughout] Respiratory 17 17 21 Rate Respiratory Rate [Bilateral Throughout] Blood Pressure 162/56 152/49 152/49 O2 Sat by Pulse 100 100 99 Oximetry 03/17/21 03/17/21 03/17/21 05:50 06:01 06:11 Temperature Pulse Rate 101 H 89 89 Pulse Rate [ Bilateral Throughout] Respiratory 19 18 13 Rate Respiratory Rate [Bilateral Throughout] Blood Pressure 181/63 161/56 161/56 O2 Sat by Pulse 98 99 99 Oximetry 03/17/21 03/17/21 03/17/21 06:21 06:30 06:41 Temperature Pulse Rate 90 88 82 Pulse Rate [ Bilateral Throughout] Respiratory 16 16 17 Rate Respiratory Rate [Bilateral Throughout] Blood Pressure 147/60 158/63 158/63 O2 Sat by Pulse 100 99 100 Oximetry 03/17/21 03/17/21 03/17/21 06:51 07:00 07:11 Temperature Pulse Rate 90 86 88 Pulse Rate [ Bilateral Throughout] Respiratory 16 21 18 Rate Respiratory Rate [Bilateral Throughout] Blood Pressure 151/62 161/62 161/62 O2 Sat by Pulse 100 99 100 Oximetry 03/17/21 03/17/21 03/17/21 07:21 07:31 07:40 Temperature Pulse Rate 95 H 93 H 96 H Pulse Rate [ Bilateral Throughout] Respiratory 22 20 18 Rate Respiratory Rate [Bilateral Throughout] Blood Pressure 169/49 176/60 176/60 O2 Sat by Pulse 99 98 99 Oximetry 03/17/21 03/17/21 03/17/21 07:50 08:00 08:11 Temperature 98.4 F Pulse Rate 92 H 94 H 101 H Pulse Rate [ Bilateral Throughout] Respiratory 21 24 25 H Rate Respiratory Rate [Bilateral Throughout] Blood Pressure 176/68 148/67 148/67 O2 Sat by Pulse 99 97 93 Oximetry 03/17/21 03/17/21 03/17/21 08:21 08:30 08:31 Temperature Pulse Rate 97 H 96 H 95 H Pulse Rate [ Bilateral Throughout] Respiratory 21 24 Rate Respiratory Rate [Bilateral Throughout] Blood Pressure 148/67 146/55 146/55 O2 Sat by Pulse 97 98 Oximetry 03/17/21 03/17/21 03/17/21 08:41 08:51 09:00 Temperature Pulse Rate 93 H 86 86 Pulse Rate [ Bilateral Throughout] Respiratory 22 20 18 Rate Respiratory Rate [Bilateral Throughout] Blood Pressure 146/55 148/61 143/63 O2 Sat by Pulse 95 96 97 Oximetry 03/17/21 03/17/21 03/17/21 09:08 09:11 09:21 Temperature Pulse Rate 87 89 Pulse Rate [ Bilateral Throughout] Respiratory 20 21 Rate Respiratory Rate [Bilateral Throughout] Blood Pressure 143/63 153/53 O2 Sat by Pulse 98 99 99 Oximetry 03/17/21 03/17/21 03/17/21 09:30 09:41 09:51 Temperature Pulse Rate 88 90 89 Pulse Rate [ Bilateral Throughout] Respiratory 21 23 22 Rate Respiratory Rate [Bilateral Throughout] Blood Pressure 135/54 135/54 138/57 O2 Sat by Pulse 98 98 99 Oximetry 03/17/21 03/17/21 03/17/21 09:55 10:00 10:11 Temperature Pulse Rate 93 H 91 H Pulse Rate [ 89 Bilateral Throughout] Respiratory 22 16 Rate Respiratory 22 Rate [Bilateral Throughout] Blood Pressure 158/63 158/63 O2 Sat by Pulse 70 L 97 Oximetry 03/17/21 03/17/21 03/17/21 10:21 10:31 10:41 Temperature Pulse Rate 90 89 91 H Pulse Rate [ Bilateral Throughout] Respiratory 20 20 19 Rate Respiratory Rate [Bilateral Throughout] Blood Pressure 142/59 154/59 154/59 O2 Sat by Pulse 97 100 100 Oximetry 03/17/21 03/17/21 03/17/21 10:51 11:00 11:02 Temperature 98 F Pulse Rate 91 H 91 H Pulse Rate [ Bilateral Throughout] Respiratory 22 25 H Rate Respiratory Rate [Bilateral Throughout] Blood Pressure 154/64 128/56 O2 Sat by Pulse 98 98 Oximetry 03/17/21 03/17/21 03/17/21 11:11 11:16 11:17 Temperature 98.4 F Pulse Rate 92 H 93 H Pulse Rate [ Bilateral Throughout] Respiratory 27 H 23 Rate Respiratory Rate [Bilateral Throughout] Blood Pressure 128/56 150/54 O2 Sat by Pulse 99 100 Oximetry 03/17/21 03/17/21 03/17/21 11:31 11:39 12:00 Temperature 97.9 F 98.6 F Pulse Rate 91 H 93 H 93 H Pulse Rate [ Bilateral Throughout] Respiratory 20 18 21 Rate Respiratory Rate [Bilateral Throughout] Blood Pressure 149/58 149/58 172/62 O2 Sat by Pulse 100 99 99 Oximetry 03/17/21 03/17/21 03/17/21 12:10 12:17 12:31 Temperature 99.3 F 99 F Pulse Rate 91 H 92 H 88 Pulse Rate [ Bilateral Throughout] Respiratory 19 22 24 Rate Respiratory Rate [Bilateral Throughout] Blood Pressure 170/57 180/69 169/67 O2 Sat by Pulse 99 98 99 Oximetry 03/17/21 03/17/21 03/17/21 13:00 13:09 13:30 Temperature Pulse Rate 93 H 92 H 95 H Pulse Rate [ Bilateral Throughout] Respiratory 21 24 Rate Respiratory Rate [Bilateral Throughout] Blood Pressure 185/57 185/57 184/70 O2 Sat by Pulse 100 99 Oximetry 03/17/21 03/17/21 03/17/21 14:00 14:31 15:01 Temperature Pulse Rate 102 H 100 H 105 H Pulse Rate [ Bilateral Throughout] Respiratory 26 H 26 H 23 Rate Respiratory Rate [Bilateral Throughout] Blood Pressure 178/124 187/61 192/70 O2 Sat by Pulse 96 96 100 Oximetry 03/17/21 03/17/21 03/17/21 15:31 16:00 16:01 Temperature Pulse Rate 106 H 105 H 105 H Pulse Rate [ Bilateral Throughout] Respiratory 22 21 21 Rate Respiratory Rate [Bilateral Throughout] Blood Pressure 204/74 182/56 O2 Sat by Pulse 99 98 98 Oximetry 03/17/21 16:15 Temperature Pulse Rate 102 H Pulse Rate [ Bilateral Throughout] Respiratory Rate Respiratory Rate [Bilateral Throughout] Blood Pressure 182/77 O2 Sat by Pulse Oximetry General appearance: Present: mild distress (Agitated) - EENT Eyes: EOM intact ENT: hearing intact - Respiratory Respiratory effort: labored (With Ventimask) Extremities: abnormal (Right forefoot ischemic) Extremity abnormal: pulses diminished - Psychiatric Psychiatric: appropriate mood/affect, cooperative - Labs CBC & Chem 7: 03/17/21 06:30 03/17/21 06:30 Labs: Abnormal lab results 03/13/21 03/16/21 03/17/21 Range/Units 15:22 21:59 00:13 WBC (4.5-11.0) K/mm3 RBC (3.65-5.03) M/mm3 Hgb (11.8-15.2) gm/dl Hct (35.5-45.6) % Plt Count (140-440) K/mm3 Seg Neuts % (Manual) (40.0-70.0) % Lymphocytes % (Manual) (13.4-35.0) % Seg Neutrophils # Man (1.8-7.7) K/mm3 Lymphocytes # (Manual) (1.2-5.4) K/mm3 APTT (24.2-36.6) Sec. POC ABG pCO2 88.2 H (32.0-48.0) mmHg POC ABG pO2 50.2 L (83-108) mmHg ABG Hemoglobin 8.1 L (12.0-17.5) ABG Oxyhemoglobin 80.2 L (94-98) ABG Sodium 135.4 L (136.0-145.0) mmol/L ABG Chloride 97.0 L (98-107) mmol/L ABG Glucose 98 H (65-95) mg/dL Carbon Dioxide (22-30) mmol/L BUN (9-20) mg/dL Glucose (75-100) mg/dL POC Glucose 119 H (70-105) mg/dL Calcium (8.4-10.2) mg/dL Direct Bilirubin (0-0.2) mg/dL AST (5-40) units/L ALT (7-56) units/L Total Protein (6.3-8.2) g/dL Albumin (3.9-5) g/dL Arterial Blood Glucose 98 H (65-95) mg/dL Arterial Blood Ionized Calcium 4.0 L (4.6-5.3) mg/dL Crossmatch See Detail 03/17/21 03/17/21 03/17/21 Range/Units 00:35 00:55 00:55 WBC (4.5-11.0) K/mm3 RBC (3.65-5.03) M/mm3 Hgb (11.8-15.2) gm/dl Hct (35.5-45.6) % Plt Count (140-440) K/mm3 Seg Neuts % (Manual) (40.0-70.0) % Lymphocytes % (Manual) (13.4-35.0) % Seg Neutrophils # Man (1.8-7.7) K/mm3 Lymphocytes # (Manual) (1.2-5.4) K/mm3 APTT 44.5 H (24.2-36.6) Sec. POC ABG pCO2 69.0 H (32.0-48.0) mmHg POC ABG pO2 (83-108) mmHg ABG Hemoglobin 7.2 L (12.0-17.5) ABG Oxyhemoglobin (94-98) ABG Sodium 135.0 L (136.0-145.0) mmol/L ABG Chloride (98-107) mmol/L ABG Glucose 110 H (65-95) mg/dL Carbon Dioxide (22-30) mmol/L BUN (9-20) mg/dL Glucose (75-100) mg/dL POC Glucose (70-105) mg/dL Calcium (8.4-10.2) mg/dL Direct Bilirubin 0.3 H (0-0.2) mg/dL AST 229 H (5-40) units/L ALT 426 H (7-56) units/L Total Protein 4.6 L (6.3-8.2) g/dL Albumin 2.5 L (3.9-5) g/dL Arterial Blood Glucose 110 H (65-95) mg/dL Arterial Blood Ionized Calcium 4.0 L (4.6-5.3) mg/dL Crossmatch 03/17/21 03/17/21 03/17/21 Range/Units 06:30 06:30 09:20 WBC 25.9 H (4.5-11.0) K/mm3 RBC 2.16 L (3.65-5.03) M/mm3 Hgb 6.7 L (11.8-15.2) gm/dl Hct 20.0 L (35.5-45.6) % Plt Count 124 L (140-440) K/mm3 Seg Neuts % (Manual) 98.0 H (40.0-70.0) % Lymphocytes % (Manual) 2.0 L (13.4-35.0) % Seg Neutrophils # Man 25.4 H (1.8-7.7) K/mm3 Lymphocytes # (Manual) 0.5 L (1.2-5.4) K/mm3 APTT (24.2-36.6) Sec. POC ABG pCO2 (32.0-48.0) mmHg POC ABG pO2 (83-108) mmHg ABG Hemoglobin (12.0-17.5) ABG Oxyhemoglobin (94-98) ABG Sodium (136.0-145.0) mmol/L ABG Chloride (98-107) mmol/L ABG Glucose (65-95) mg/dL Carbon Dioxide 42 H* (22-30) mmol/L BUN 30 H (9-20) mg/dL Glucose 171 H (75-100) mg/dL POC Glucose (70-105) mg/dL Calcium 7.5 L (8.4-10.2) mg/dL Direct Bilirubin (0-0.2) mg/dL AST (5-40) units/L ALT (7-56) units/L Total Protein (6.3-8.2) g/dL Albumin (3.9-5) g/dL Arterial Blood Glucose (65-95) mg/dL Arterial Blood Ionized Calcium (4.6-5.3) mg/dL Crossmatch See Detail 03/17/21 03/17/21 03/17/21 Range/Units 10:13 11:57 12:01 WBC (4.5-11.0) K/mm3 RBC (3.65-5.03) M/mm3 Hgb (11.8-15.2) gm/dl Hct (35.5-45.6) % Plt Count (140-440) K/mm3 Seg Neuts % (Manual) (40.0-70.0) % Lymphocytes % (Manual) (13.4-35.0) % Seg Neutrophils # Man (1.8-7.7) K/mm3 Lymphocytes # (Manual) (1.2-5.4) K/mm3 APTT 63.2 H* (24.2-36.6) Sec. POC ABG pCO2 (32.0-48.0) mmHg POC ABG pO2 (83-108) mmHg ABG Hemoglobin (12.0-17.5) ABG Oxyhemoglobin (94-98) ABG Sodium (136.0-145.0) mmol/L ABG Chloride (98-107) mmol/L ABG Glucose (65-95) mg/dL Carbon Dioxide (22-30) mmol/L BUN (9-20) mg/dL Glucose (75-100) mg/dL POC Glucose 48 L 159 H (70-105) mg/dL Calcium (8.4-10.2) mg/dL Direct Bilirubin (0-0.2) mg/dL AST (5-40) units/L ALT (7-56) units/L Total Protein (6.3-8.2) g/dL Albumin (3.9-5) g/dL Arterial Blood Glucose (65-95) mg/dL Arterial Blood Ionized Calcium (4.6-5.3) mg/dL Crossmatch Medications & Allergies - Medications Allergies/Adverse Reactions: Allergies Unable to Assess Allergy (Verified 03/08/21 14:37) AMS Active Medications: Generic Name Dose Route Start Last Admin Trade Name Freq PRN Reason Stop Dose Admin Acetaminophen 650 mg 03/08/21 21:36 Acetaminophen 325 Mg Tab PO Q4H PRN Pain MILD(1-3)/Fever >100.5/MYERS Hydrocodone Bitart/Acetaminophen 1 each 03/11/21 13:59 Hydrocodone/Acetaminophen 5-325 Mg Tab PO Q6H PRN Pain, Moderate (4-6) Albuterol 2.5 mg 03/15/21 19:28 03/16/21 21:45 Albuterol 2.5 Mg/3 Ml Nebu IH 2.5 mg Q4HRT PRN Administration Shortness Of Breath Lipase/Protease/Amylase 1 each 03/08/21 21:42 Lipase 10,500/Protease 25,000/Amylase 43,750 (Units) Dr Cap FEEDTUBE PRN PRN For Clogged Feeding Tube Arformoterol Tartrate 15 mcg 03/10/21 20:00 03/17/21 09:55 Arformoterol 15 Mcg/2 Ml Nebu IH 15 mcg Q12HRT PRINCESS Administration Aspirin 81 mg 03/10/21 15:00 03/17/21 10:47 Aspirin 81 Mg Tab Chew PO Not Given QDAY PRINCESS Atorvastatin Calcium 40 mg 03/11/21 22:00 03/16/21 21:28 Atorvastatin 40 Mg Tab PO 40 mg QHS PRINCESS Administration Budesonide 0.5 mg 03/09/21 20:00 03/17/21 09:55 Budesonide 0.5 Mg/2 Ml Nebu IH 0.5 mg Q12HRT PRINCESS Administration Clopidogrel Bisulfate 75 mg 03/12/21 10:00 03/17/21 10:47 Clopidogrel 75 Mg Tab PO Not Given QDAY PRINCESS Haloperidol Lactate 5 mg 03/13/21 11:15 03/13/21 11:28 Haloperidol Lactate 5 Mg/1 Ml Inj IV 5 mg Q6H PRN Administration Agitation Norepinephrine 4 mg in 250 mls @ 7.5 mls/hr 03/09/21 08:00 03/17/21 07:45 Levophed Drip 4 Mg/Ns 250 Ml IV 2 mcg/min TITR PRINCESS 7.5 mls/hr Titration Protocol 2 MCG/MIN Vasopressin 20 unit/ Sodium 101 mls @ 9.09 mls/hr 03/13/21 18:00 03/14/21 00:42 Chloride IV 0 units/min TITR PRINCESS 0 mls/hr Titration Protocol 0.03 UNITS/MIN Dextrose 1,000 mls @ 42 mls/hr 03/15/21 16:00 03/17/21 13:25 D10w IV 42 mls/hr DIRECT PRINCESS Administration Sodium Chloride 500 mls @ 0 mls/hr 03/17/21 08:51 Nacl 0.9% 500 Ml IV 03/17/21 23:59 ONCE NR As Directed Insulin Human Lispro 0 unit 03/10/21 12:00 03/17/21 12:24 Insulin Lispro 100 Unit/Ml SUB-Q 2 unit Q6HR PRINCESS Administration Protocol Metoclopramide HCl 10 mg 03/08/21 21:36 Metoclopramide 10 Mg/2 Ml Inj IV Q6H PRN Nausea And Vomiting Metoprolol Tartrate 5 mg 03/17/21 16:00 03/17/21 16:15 Metoprolol Tartrate 5 Mg/5 Ml Inj IV 5 mg Q6H PRINCESS Administration Morphine Sulfate 1 mg 03/14/21 17:07 03/16/21 09:35 Morphine 2 Mg/1 Ml Inj IV 1 mg Q4H PRN Administration Pain, Moderate (4-6) Nitroglycerin 0.4 mg 03/16/21 06:00 03/17/21 05:45 Nitroglycerin 0.4 Mg Patch 24hr TD Not Given QDAY@0600 [facility] Ondansetron HCl 4 mg 03/08/21 21:36 Ondansetron 4 Mg/2 Ml Inj IV Q3H PRN Nausea And Vomiting Pantoprazole Sodium 40 mg 03/13/21 13:00 03/17/21 10:48 Pantoprazole 40 Mg Inj IV 40 mg BID PRINCESS Administration Simple Syrup 15 ml 03/08/21 21:42 Simple Syrup 15 Ml FEEDTUBE PRN PRN Hypoglycemia Simple Syrup 30 ml 03/08/21 21:42 Simple Syrup 15 Ml FEEDTUBE PRN PRN Hypoglycemia Sodium Bicarbonate 325 mg 03/08/21 21:42 Sodium Bicarbonate 325 Mg Tab FEEDTUBE PRN PRN For Clogged Feeding Tube Sodium Chloride 10 ml 03/08/21 22:00 03/17/21 10:48 Sodium Chloride 0.9% 10 Ml Flush Syringe IV 10 ml BID PRINCESS Administration Sodium Chloride 10 ml 03/08/21 21:36 03/16/21 05:17 Sodium Chloride 0.9% 10 Ml Flush Syringe IV 10 ml PRN PRN Administration LINE FLUSH HEART Score - HEART Score Age: > 65 Risk factors: No known risk factors Troponin: Troponin T 0.261 ng/mL (0.00-0.029) H* D 03/12/21 04:40 Troponin: < normal limit - Critical Actions Critical Actions: 0-3 pts:0.9-1.7%risk of adverse cardiac event.Candidate for discharge
--- NOTE | 2021-03-17 19:05 | Hem/Onc Progress Note ---
Subjective Date of service: 03/17/21 Interval history: televisit by telephone A/V cart unavailable CPT 17251 dx: heparin-induced thrombocytopenia 65yo male with h/o of copd Admitted 03/08 with ams d/t hypoxia with BL LL pna 03/11 had cardiac cath done by cardiology post STEMI--> developed right foot ischemia post cath, started on heparin drip 03/13 developed GI bleed, also with marked decrease in hgb from 13 to 6--> heparin drip stopped 03/15 large left and right groin ecchymosis --> CT showed psoas retroperitoneal hematoma Exam per nurse: Pt alert and looks better than yesterday data reviewed below IMP Presumed heparin induced thrombocytopenia, d/t retroperitoneal hematoma and marked decrease in hgb and platelets Hgb 6.7 and dark stool as per RN--may be due to argatroban and that's why it was stopped Mentation improved overnight on low dose argatroban REC: Argatroban drip if no signs of bleeding over night --> 0.5mcg/kg/min --monitor for any signs of bleeding Continue Solumedrol 1mg/kg IV q8 CBC in AM -- transfuse 1 unit PRBC when hct <23 Awaiting pf4 antibody --Discussed with Dr. Lara possibility of HIT Laboratory Last Values WBC 25.9 K/mm3 (4.5-11.0) H 03/17/21 06:30 RBC 2.16 M/mm3 (3.65-5.03) L 03/17/21 06:30 Hgb 6.7 gm/dl (11.8-15.2) L 03/17/21 06:30 Hct 20.0 % (35.5-45.6) L 03/17/21 06:30 Plt Count 124 K/mm3 (140-440) L 03/17/21 06:30 APTT 63.2 Sec. (24.2-36.6) H* 03/17/21 10:13 D-Dimer 832.06 ng/mlDDU (0-234) H 03/08/21 15:49 Heparin Anti-Xa Level 0.65 U.I./ml (0.3-0.7) 03/13/21 01:44 Blood Type B POSITIVE 03/17/21 09:20 Antibody Screen Negative 03/17/21 09:20 Crossmatch See Detail 03/17/21 09:20 Objective - Constitutional Vitals: Last Vital Signs Temp 99 F 03/17/21 12:17 Pulse 102 H 03/17/21 16:15 Resp 21 03/17/21 16:01 BP 182/77 03/17/21 16:15 Pulse Ox 98 03/17/21 16:01 - Labs Lab Results: Laboratory Results - last 24 hr 03/13/21 03/16/21 03/17/21 15:22 21:59 00:13 WBC RBC Hgb Hct MCV MCH MCHC RDW Plt Count Add Manual Diff Total Counted Seg Neutrophils % Seg Neuts % (Manual) Lymphocytes % (Manual) Nucleated RBC % Seg Neutrophils # Man Band Neutrophils # Lymphocytes # (Manual) Abs React Lymphs (Man) Monocytes # (Manual) Eosinophils # (Manual) Basophils # (Manual) Metamyelocytes # Myelocytes # Promyelocytes # Blast Cells # WBC Morphology Hypersegmented Neuts Hyposegmented Neuts Hypogranular Neuts Smudge Cells Toxic Granulation Toxic Vacuolation Dohle Bodies Pelger-Huet Anomaly Maritza Rods Platelet Estimate Clumped Platelets Plt Clumps, EDTA Large Platelets Giant Platelets Platelet Satelliting Plt Morphology Comment RBC Morphology Dimorphic RBCs Polychromasia Hypochromasia Poikilocytosis Anisocytosis Microcytosis Macrocytosis Spherocytes Pappenheimer Bodies Sickle Cells Target Cells Tear Drop Cells Ovalocytes Helmet Cells Gautam-Ali Chuk Bodies [place] Rings Ver[place]ica Cells Bite Cells Crenated Cell Elliptocytes Acanthocytes (Spur) Rouleaux Hemoglobin C Crystals Schistocytes Malaria parasites Timoteo Bodies Hem Pathologist Commnt APTT ABG pH 7.324 POC ABG pCO2 88.2 H POC ABG pO2 50.2 L POC ABG HCO3 44.8 ABG O2 Saturation 81.2 POC ABG Base Excess 16.5 ABG Hemoglobin 8.1 L ABG Oxyhemoglobin 80.2 L ABG Methemoglobin 0.3 ABG Sodium 135.4 L ABG Potassium 4.0 ABG Chloride 97.0 L ABG Glucose 98 H Carboxyhemoglobin 0.9 FiO2 % 70.0 Sodium Potassium Chloride Carbon Dioxide Anion Gap BUN Creatinine Estimated GFR BUN/Creatinine Ratio Glucose POC Glucose 119 H Calcium Total Bilirubin Direct Bilirubin Indirect Bilirubin AST ALT Alkaline Phosphatase Total Protein Albumin Albumin/Globulin Ratio Arterial Blood Glucose 98 H Arterial Blood Ionized Calcium 4.0 L Blood Type B POSITIVE Antibody Screen Negative Crossmatch See Detail 03/17/21 03/17/21 03/17/21 00:35 00:55 00:55 WBC RBC Hgb Hct MCV MCH MCHC RDW Plt Count Add Manual Diff Total Counted Seg Neutrophils % Seg Neuts % (Manual) Lymphocytes % (Manual) Nucleated RBC % Seg Neutrophils # Man Band Neutrophils # Lymphocytes # (Manual) Abs React Lymphs (Man) Monocytes # (Manual) Eosinophils # (Manual) Basophils # (Manual) Metamyelocytes # Myelocytes # Promyelocytes # Blast Cells # WBC Morphology Hypersegmented Neuts Hyposegmented Neuts Hypogranular Neuts Smudge Cells Toxic Granulation Toxic Vacuolation Dohle Bodies Pelger-Huet Anomaly Maritza Rods Platelet Estimate Clumped Platelets Plt Clumps, EDTA Large Platelets Giant Platelets Platelet Satelliting Plt Morphology Comment RBC Morphology Dimorphic RBCs Polychromasia Hypochromasia Poikilocytosis Anisocytosis Microcytosis Macrocytosis Spherocytes Pappenheimer Bodies Sickle Cells Target Cells Tear Drop Cells Ovalocytes Helmet Cells Gautam-Ali Chuk Bodies [place] Rings Verónica Cells Bite Cells Crenated Cell Elliptocytes Acanthocytes (Spur) Rouleaux Hemoglobin C Crystals Schistocytes Malaria parasites Timoteo Bodies Hem Pathologist Commnt APTT 44.5 H ABG pH 7.389 POC ABG pCO2 69.0 H POC ABG pO2 84.0 POC ABG HCO3 40.7 ABG O2 Saturation 95.3 POC ABG Base Excess 14.2 ABG Hemoglobin 7.2 L ABG Oxyhemoglobin 94.3 ABG Methemoglobin 0.3 ABG Sodium 135.0 L ABG Potassium 3.7 ABG Chloride 98.0 ABG Glucose 110 H Carboxyhemoglobin 0.8 FiO2 % Sodium Potassium Chloride Carbon Dioxide Anion Gap BUN Creatinine Estimated GFR BUN/Creatinine Ratio Glucose POC Glucose Calcium Total Bilirubin 0.70 Direct Bilirubin 0.3 H Indirect Bilirubin 0.4 AST 229 H ALT 426 H Alkaline Phosphatase 41 Total Protein 4.6 L Albumin 2.5 L Albumin/Globulin Ratio 1.2 Arterial Blood Glucose 110 H Arterial Blood Ionized Calcium 4.0 L Blood Type Antibody Screen Crossmatch 03/17/21 03/17/21 03/17/21 05:15 06:30 06:30 WBC 25.9 H RBC 2.16 L Hgb 6.7 L Hct 20.0 L MCV 92 MCH 31 MCHC 33 RDW 14.6 Plt Count 124 L Add Manual Diff Complete Total Counted 100 Seg Neutrophils % Supervisor [employer] Seg Neuts % (Manual) 98.0 H Lymphocytes % (Manual) 2.0 L Nucleated RBC % Not Reportable Seg Neutrophils # Man 25.4 H Band Neutrophils # 0.0 Lymphocytes # (Manual) 0.5 L Abs React Lymphs (Man) 0.0 Monocytes # (Manual) 0.0 Eosinophils # (Manual) 0.0 Basophils # (Manual) 0.0 Metamyelocytes # 0.0 Myelocytes # 0.0 Promyelocytes # 85.9 Blast Cells # 0.0 WBC Morphology Not Reportable Hypersegmented Neuts Not Reportable Hyposegmented Neuts Not Reportable Hypogranular Neuts Not Reportable Smudge Cells Not Reportable Toxic Granulation Not Reportable Toxic Vacuolation Not Reportable Dohle Bodies Not Reportable Pelger-Huet Anomaly Not Reportable Maritza Rods Not Reportable Platelet Estimate Consistent w auto Clumped Platelets Not Reportable Plt Clumps, EDTA Not Reportable Large Platelets Not Reportable Giant Platelets Not Reportable Platelet Satelliting Not Reportable Plt Morphology Comment Not Reportable RBC Morphology Not Reportable Dimorphic RBCs Not Reportable Polychromasia Not Reportable Hypochromasia 2+ Poikilocytosis Not Reportable Anisocytosis Not Reportable Microcytosis Not Reportable Macrocytosis Few Spherocytes Not Reportable Pappenheimer Bodies Not Reportable Sickle Cells Not Reportable Target Cells Not Reportable Tear Drop Cells Not Reportable Ovalocytes Not Reportable Helmet Cells Not Reportable Gautam-Ali Chuk Bodies Not Reportable [place] Rings Not Reportable [place] Cells Not Reportable Bite Cells Not Reportable Crenated Cell Not Reportable Elliptocytes Not Reportable Acanthocytes (Spur) Not Reportable Rouleaux Not Reportable Hemoglobin C Crystals Not Reportable Schistocytes Not Reportable Malaria parasites Not Reportable Timoteo Bodies Not Reportable Hem Pathologist Commnt No APTT ABG pH POC ABG pCO2 POC ABG pO2 POC ABG HCO3 ABG O2 Saturation POC ABG Base Excess ABG Hemoglobin ABG Oxyhemoglobin ABG Methemoglobin ABG Sodium ABG Potassium ABG Chloride ABG Glucose Carboxyhemoglobin FiO2 % Sodium 144 Potassium 3.9 Chloride 99.1 Carbon Dioxide 42 H* Anion Gap 7 BUN 30 H Creatinine 1.1 Estimated GFR > 60 BUN/Creatinine Ratio 27 Glucose 171 H POC Glucose 101 Calcium 7.5 L Total Bilirubin Direct Bilirubin Indirect Bilirubin AST ALT Alkaline Phosphatase Total Protein Albumin Albumin/Globulin Ratio Arterial Blood Glucose Arterial Blood Ionized Calcium Blood Type Antibody Screen Crossmatch 03/17/21 03/17/21 03/17/21 09:20 10:13 11:57 WBC RBC Hgb Hct MCV MCH MCHC RDW Plt Count Add Manual Diff Total Counted Seg Neutrophils % Seg Neuts % (Manual) Lymphocytes % (Manual) Nucleated RBC % Seg Neutrophils # Man Band Neutrophils # Lymphocytes # (Manual) Abs React Lymphs (Man) Monocytes # (Manual) Eosinophils # (Manual) Basophils # (Manual) Metamyelocytes # Myelocytes # Promyelocytes # Blast Cells # WBC Morphology Hypersegmented Neuts Hyposegmented Neuts Hypogranular Neuts Smudge Cells Toxic Granulation Toxic Vacuolation Dohle Bodies Pelger-Huet Anomaly Maritza Rods Platelet Estimate Clumped Platelets Plt Clumps, EDTA Large Platelets Giant Platelets Platelet Satelliting Plt Morphology Comment RBC Morphology Dimorphic RBCs Polychromasia Hypochromasia Poikilocytosis Anisocytosis Microcytosis Macrocytosis Spherocytes Pappenheimer Bodies Sickle Cells Target Cells Tear Drop Cells Ovalocytes Helmet Cells Gautam-Ali Chuk Bodies [place] Rings Ver[place]ica Cells Bite Cells Crenated Cell Elliptocytes Acanthocytes (Spur) Rouleaux Hemoglobin C Crystals Schistocytes Malaria parasites Timoteo Bodies Hem Pathologist Commnt APTT 63.2 H* ABG pH POC ABG pCO2 POC ABG pO2 POC ABG HCO3 ABG O2 Saturation POC ABG Base Excess ABG Hemoglobin ABG Oxyhemoglobin ABG Methemoglobin ABG Sodium ABG Potassium ABG Chloride ABG Glucose Carboxyhemoglobin FiO2 % Sodium Potassium Chloride Carbon Dioxide Anion Gap BUN Creatinine Estimated GFR BUN/Creatinine Ratio Glucose POC Glucose 48 L Calcium Total Bilirubin Direct Bilirubin Indirect Bilirubin AST ALT Alkaline Phosphatase Total Protein Albumin Albumin/Globulin Ratio Arterial Blood Glucose Arterial Blood Ionized Calcium Blood Type B POSITIVE Antibody Screen Negative Crossmatch See Detail 03/17/21 03/17/21 03/17/21 12:01 17:09 18:23 WBC RBC Hgb Hct MCV MCH MCHC RDW Plt Count Add Manual Diff Total Counted Seg Neutrophils % Seg Neuts % (Manual) Lymphocytes % (Manual) Nucleated RBC % Seg Neutrophils # Man Band Neutrophils # Lymphocytes # (Manual) Abs React Lymphs (Man) Monocytes # (Manual) Eosinophils # (Manual) Basophils # (Manual) Metamyelocytes # Myelocytes # Promyelocytes # Blast Cells # WBC Morphology Hypersegmented Neuts Hyposegmented Neuts Hypogranular Neuts Smudge Cells Toxic Granulation Toxic Vacuolation Dohle Bodies Pelger-Huet Anomaly Maritza Rods Platelet Estimate Clumped Platelets Plt Clumps, EDTA Large Platelets Giant Platelets Platelet Satelliting Plt Morphology Comment RBC Morphology Dimorphic RBCs Polychromasia Hypochromasia Poikilocytosis Anisocytosis Microcytosis Macrocytosis Spherocytes Pappenheimer Bodies Sickle Cells Target Cells Tear Drop Cells Ovalocytes Helmet Cells Gautam-Ali Chuk Bodies [place] Rings [place] Cells Bite Cells Crenated Cell Elliptocytes Acanthocytes (Spur) Rouleaux Hemoglobin C Crystals Schistocytes Malaria parasites Timoteo Bodies Hem Pathologist Commnt APTT ABG pH POC ABG pCO2 POC ABG pO2 POC ABG HCO3 ABG O2 Saturation POC ABG Base Excess ABG Hemoglobin ABG Oxyhemoglobin ABG Methemoglobin ABG Sodium ABG Potassium ABG Chloride ABG Glucose Carboxyhemoglobin FiO2 % Sodium Potassium Chloride Carbon Dioxide Anion Gap BUN Creatinine Estimated GFR BUN/Creatinine Ratio Glucose POC Glucose 159 H 68 L 60 L Calcium Total Bilirubin Direct Bilirubin Indirect Bilirubin AST ALT Alkaline Phosphatase Total Protein Albumin Albumin/Globulin Ratio Arterial Blood Glucose Arterial Blood Ionized Calcium Blood Type Antibody Screen Crossmatch 03/17/21 18:26 WBC RBC Hgb Hct MCV MCH MCHC RDW Plt Count Add Manual Diff Total Counted Seg Neutrophils % Seg Neuts % (Manual) Lymphocytes % (Manual) Nucleated RBC % Seg Neutrophils # Man Band Neutrophils # Lymphocytes # (Manual) Abs React Lymphs (Man) Monocytes # (Manual) Eosinophils # (Manual) Basophils # (Manual) Metamyelocytes # Myelocytes # Promyelocytes # Blast Cells # WBC Morphology Hypersegmented Neuts Hyposegmented Neuts Hypogranular Neuts Smudge Cells Toxic Granulation Toxic Vacuolation Dohle Bodies Pelger-Huet Anomaly Maritza Rods Platelet Estimate Clumped Platelets Plt Clumps, EDTA Large Platelets Giant Platelets Platelet Satelliting Plt Morphology Comment RBC Morphology Dimorphic RBCs Polychromasia Hypochromasia Poikilocytosis Anisocytosis Microcytosis Macrocytosis Spherocytes Pappenheimer Bodies Sickle Cells Target Cells Tear Drop Cells Ovalocytes Helmet Cells Gautam-Ali Chuk Bodies [place] Rings Ver[place] Cells Bite Cells Crenated Cell Elliptocytes Acanthocytes (Spur) Rouleaux Hemoglobin C Crystals Schistocytes Malaria parasites Timoteo Bodies Hem Pathologist Commnt APTT ABG pH POC ABG pCO2 POC ABG pO2 POC ABG HCO3 ABG O2 Saturation POC ABG Base Excess ABG Hemoglobin ABG Oxyhemoglobin ABG Methemoglobin ABG Sodium ABG Potassium ABG Chloride ABG Glucose Carboxyhemoglobin FiO2 % Sodium Potassium Chloride Carbon Dioxide Anion Gap BUN Creatinine Estimated GFR BUN/Creatinine Ratio Glucose POC Glucose 60 L Calcium Total Bilirubin Direct Bilirubin Indirect Bilirubin AST ALT Alkaline Phosphatase Total Protein Albumin Albumin/Globulin Ratio Arterial Blood Glucose Arterial Blood Ionized Calcium Blood Type Antibody Screen Crossmatch Medications & Allergies - Medications Allergies/Adverse Reactions: Allergies Unable to Assess Allergy (Verified 03/08/21 14:37) AMS Active Medications: Generic Name Dose Route Start Last Admin Trade Name Freq PRN Reason Stop Dose Admin Acetaminophen 650 mg 03/08/21 21:36 Acetaminophen 325 Mg Tab PO Q4H PRN Pain MILD(1-3)/Fever >100.5/MYERS Hydrocodone Bitart/Acetaminophen 1 each 03/11/21 13:59 Hydrocodone/Acetaminophen 5-325 Mg Tab PO Q6H PRN Pain, Moderate (4-6) Albuterol 2.5 mg 03/15/21 19:28 03/16/21 21:45 Albuterol 2.5 Mg/3 Ml Nebu IH 2.5 mg Q4HRT PRN Administration Shortness Of Breath Lipase/Protease/Amylase 1 each 03/08/21 21:42 Lipase 10,500/Protease 25,000/Amylase 43,750 (Units) Dr Johnson FEEDTUBE PRN PRN For Clogged Feeding Tube Arformoterol Tartrate 15 mcg 03/10/21 20:00 03/17/21 09:55 Arformoterol 15 Mcg/2 Ml Nebu IH 15 mcg Q12HRT PRINCESS Administration Aspirin 81 mg 03/10/21 15:00 03/17/21 10:47 Aspirin 81 Mg Tab Chew PO Not Given QDAY PRINCESS Atorvastatin Calcium 40 mg 03/11/21 22:00 03/16/21 21:28 Atorvastatin 40 Mg Tab PO 40 mg QHS PRINCESS Administration Budesonide 0.5 mg 03/09/21 20:00 03/17/21 09:55 Budesonide 0.5 Mg/2 Ml Nebu IH 0.5 mg Q12HRT PRINCESS Administration Clopidogrel Bisulfate 75 mg 03/12/21 10:00 03/17/21 10:47 Clopidogrel 75 Mg Tab PO Not Given QDAY PRINCESS Haloperidol Lactate 5 mg 03/13/21 11:15 03/13/21 11:28 Haloperidol Lactate 5 Mg/1 Ml Inj IV 5 mg Q6H PRN Administration Agitation Norepinephrine 4 mg in 250 mls @ 7.5 mls/hr 03/09/21 08:00 03/17/21 07:45 Levophed Drip 4 Mg/Ns 250 Ml IV 2 mcg/min TITR PRINCESS 7.5 mls/hr Titration Protocol 2 MCG/MIN Vasopressin 20 unit/ Sodium 101 mls @ 9.09 mls/hr 03/13/21 18:00 03/14/21 00:42 Chloride IV 0 units/min TITR PRINCESS 0 mls/hr Titration Protocol 0.03 UNITS/MIN Dextrose 1,000 mls @ 42 mls/hr 03/15/21 16:00 03/17/21 13:25 D10w IV 42 mls/hr DIRECT PRINCESS Administration Sodium Chloride 500 mls @ 0 mls/hr 03/17/21 08:51 Nacl 0.9% 500 Ml IV 03/17/21 23:59 ONCE NR As Directed Insulin Human Lispro 0 unit 03/10/21 12:00 03/17/21 12:24 Insulin Lispro 100 Unit/Ml SUB-Q 2 unit Q6HR PRINCESS Administration Protocol Metoclopramide HCl 10 mg 03/08/21 21:36 Metoclopramide 10 Mg/2 Ml Inj IV Q6H PRN Nausea And Vomiting Metoprolol Tartrate 5 mg 03/17/21 16:00 03/17/21 16:15 Metoprolol Tartrate 5 Mg/5 Ml Inj IV 5 mg Q6H PRICNESS Administration Morphine Sulfate 1 mg 03/14/21 17:07 03/16/21 09:35 Morphine 2 Mg/1 Ml Inj IV 1 mg Q4H PRN Administration Pain, Moderate (4-6) Nitroglycerin 0.4 mg 03/16/21 06:00 03/17/21 05:45 Nitroglycerin 0.4 Mg Patch 24hr TD Not Given QDAY@0600 PRINCESS Ondansetron HCl 4 mg 03/08/21 21:36 Ondansetron 4 Mg/2 Ml Inj IV Q3H PRN Nausea And Vomiting Pantoprazole Sodium 40 mg 03/13/21 13:00 03/17/21 10:48 Pantoprazole 40 Mg Inj IV 40 mg BID PRINCESS Administration Simple Syrup 15 ml 03/08/21 21:42 Simple Syrup 15 Ml FEEDTUBE PRN PRN Hypoglycemia Simple Syrup 30 ml 03/08/21 21:42 Simple Syrup 15 Ml FEEDTUBE PRN PRN Hypoglycemia Sodium Bicarbonate 325 mg 03/08/21 21:42 Sodium Bicarbonate 325 Mg Tab FEEDTUBE PRN PRN For Clogged Feeding Tube Sodium Chloride 10 ml 03/08/21 22:00 03/17/21 10:48 Sodium Chloride 0.9% 10 Ml Flush Syringe IV 10 ml BID PRINCESS Administration Sodium Chloride 10 ml 03/08/21 21:36 03/16/21 05:17 Sodium Chloride 0.9% 10 Ml Flush Syringe IV 10 ml PRN PRN Administration LINE FLUSH
--- NOTE | 2021-03-17 20:17 | Progress Note ---
<WILDMATHEUS AbelardoKeshia - Last Filed: 03/17/21 20:02> Assessment and Plan Assessment and plan: This is 65-year-old male with COPD on 2 L home oxygen, ongoing tobacco abuse, history of vascular dementia admitted for sepsis, STEMI and V. tach cardiac arrest s/p cardiac cath with PCI, right foot ischemia/cyanosis with cold extremities, retroperitoneal/iliopsoas hematoma Neuro: Acute encephalopathy, h/o vascular dementia, cerebral sclerosis -Patient is alert and oriented on examination -Patient is from [facility] and minimally Salvadorean speaking -Avoid delirium -Reorientation as needed -CT head showed no acute infarct but extensive atherosclerotic disease with calcification -Continue aspirin, statin and Plavix Cardiology: S/p V. tach arrest 03/10, STEMI, acute systolic congestive heart failure with EF of 35 to 40% -S/p ACLS with shock and placed on amiodarone -S/p PCI to mid LAD and successful plantation of JARED -Cardiology consulted, patient recommendations -S/p Aggrastat drip -Aspirin, statin, Plavix, beta-avery -S/p Levophed drip Respiratory: Acute on chronic respiratory failure with hypoxia, COPD exacerbation, nicotine abuse, ? Left pneumothorax -2 L nasal cannula at home -S/p intubation in the emergency department now extubated -Intermittent use of BiPAP -Currently on Venturi mask -Pulmonary hygiene -Continue SPO2 monitoring -S/p needle decompression and chest tube placement -03/08 CTA Chest: BL LL PNA noted, small left apical pneumo appreciated. GI: Possible GI bleed, transaminitis, hypoglycemia -GI consulted, appreciate recommendations -Protonix -Trend CBC, LFTs -Avoid hypoglycemia : NAD -condom cath Endo: Hyperglycemia -SSI -Accu-Cheks AC at bedtime -Avoid hypoglycemia ID: Severe sepsis with shock, bilateral pneumonia, COVID-19 PUI, Leukocytosis -Patient disease consulted, patient recommendations -S/p cefepime -S/p vasopressor support -Monitor for signs and symptoms of infection and fever curve Heme: Acute on chronic anemia, thrombocytopenia, Right iliopsoas hematoma, ?HIT, right foot ischemia -Hematology/oncology and vascular surgery consulted, appreciate recommendations -Argatroban drip -IV steroids -Trend CBC -Transfuse for hemoglobin less than 7 or hematocrit less than 2 23 (per heme/onc) -COVID pcr negative x2 -S/p 2 units PRBC -2 Units PRBC ordered for today The high probability of a clinically significant, sudden or life threatening deterioration of the [multi] system(s) required my full and direct attention, intervention and personal management. The aggregate critical care time was [60] minutes. This time is in addition to time spent performing reported procedures but includes the following: [x] Data Review and interpretation [x] Patient assessment and monitoring of vital signs [x] Documentation [x] Medication orders and management Disposition Plan: icu Total Time Spent with Patient (Minutes): 60 History Interval history: This is a 65-year-old male with COPD on 2L home O2, ongoing tobacco abuse and h/o vascular dementia brought to hospital by EMS for altered mental status and respiratory failure. On EMS arrival patient had a temperature 102.3, severely hypoxic with diminished breath sounds in the left side and there was a concern for pneumothorax on the left side. EMS performed a decompression of the left hemothorax but upon arrival to the emergency room EMS placed the chest tube/catheter became dislodged. Stat chest x-ray showed no obvious left-sided pneumothorax. Given altered mental status and respiratory failure with history of hypoxia patient was intubated by the ED physician. Code sepsis was called and the patient was admitted to ICU for further stabilization and Mx. He is neg for COVID x2. His hospital stay got complicated with STEMI and V. tach cardiac arrest, S/p cardiac cath with PCI to mid LAD by cardiology and following cardiac cath he developed right foot ischemia/cyanosis with cold extremity - placed on heparin drip, h/h declined with black tarry stool x2 and CT abdomen suggesting of retroperitoneal/iliopsoas hematoma. Heparin drip has been discontinued, patient transfused 2 units of packed RBC. Consultants include: CCM, GI, Cardiology, Hematology/Oncology 03/09: Hypotensive in AM, Dr. Inman placed right IJ CVC. Patient intiated on pressors. UOP 200 cc overnight. 03/10: Planned for extubation today, repeat covid test pending. RN called for elevated trop - ordered serial trop, ekg, 2d echo, aspirin, statin and placed cardiology consult. will cont to follow clinically, pt remains on levophed 03/11: Patient had Vtech cardiac arrest last night. EKG showed acute STEMI. placed on amioderone and heparin drip. S/p PCI today with stent placement, discontinued heparin drip and started on Aggrastat. Patient now noted with cold bluish LE right>left. Discussed with Dr Armstrong and recommended to initiate low intensity heparin drip after sheath was removed. Placed order and discussed the plan with nurse and pharmacy. Ordered stat lower extremity arterial Doppler and consulted vascular surgeon. Patient remains on Ventimask with 10 to 15 L of O2. Patient also remains confused, continue supportive care and follow clinically. 03/12/21: LE remain clod and cyanotic, R> L. cont heparin drip, monitor h/h. vascular procedure when clinically more stable. discussed with daughter and updated with all clinical details. pt remains on pressor. critically ill. 03/13/21; Patient had bloody BM this am. stop heparin, start protonix IV BID. follow h/h, cont pressor, transfuse 2units PRBC. mental status declined - remains agitated and restrained. Requiring pressor support. Ordered for CT abdomen pelvis for profound anemia. platient was placed on bicarbonate drip for severe acidosis. pulled out first central line, new rIJ placed 03/14/21: CT abdomen pelvis suggestive of moderate right iliopsoas hematoma, continue to follow H&H and consult general surgery. pt on BIPAP today, h/h stable. hold ACEI/spiranolactone for GAURAV. d/c bicarbonate drip as pt becoming alkalotic. patient remains confused and agitated - on restraint 03/15/21: patient on 4L n/c today, remains lethargic, H&H stable after 2 units of packed RBC on 03/13. Remains off anticoagulation due to low platelets. Very poor prognosis, vascular following for retroperitoneal hematoma. GI recommended medical management for now possible GI bleed. Per GI patient is not stable from respiratory standpoint for endoscopy. Extremely poor prognosis, will update family. Continue to monitor clinically 03/16/21: updated both daughter in details. Patient placed back on BiPAP, repeat H&H and BMP ordered. Noted improved renal function, try to initiate tube feeding today. Platelet count continues to decline -we will consult hematology. Continue to hold anticoagulation. We will initiate aspirin and Plavix after placing Dobbhoff tube. Discussed CODE STATUS and poor prognosis with patient daughters and they stated they will decide soon. 03/17: Argatroban was stopped by cardiology be resumed by heme/oncology who also wants to continue Solu-Medrol and transfuse 1 unit PRBC if hematocrit less than 23. Patient was preloaded with Plavix and the need on daily dose of Plavix and aspirin per cardiology also stop argatroban today due to further evidence of possible possible bleeding and drop in hematocrit. Hospitalist Physical - Constitutional Vitals: Temp Pulse Resp BP Pulse Ox 99 F 102 H 21 182/77 98 03/17/21 12:17 03/17/21 16:15 03/17/21 16:01 03/17/21 16:15 03/17/21 19:57 General appearance: Present: mild distress (Agitated) HEART Score - HEART Score Age: > 65 Risk factors: No known risk factors Troponin: Troponin T 0.261 ng/mL (0.00-0.029) H* D 03/12/21 04:40 Troponin: < normal limit - Critical Actions Critical Actions: 0-3 pts:0.9-1.7%risk of adverse cardiac event.Candidate for discharge Results - Labs CBC & Chem 7: 03/17/21 06:30 03/17/21 06:30 Labs: Laboratory Last Values WBC 25.9 K/mm3 (4.5-11.0) H 03/17/21 06:30 RBC 2.16 M/mm3 (3.65-5.03) L 03/17/21 06:30 Hgb 6.7 gm/dl (11.8-15.2) L 03/17/21 06:30 Hct 20.0 % (35.5-45.6) L 03/17/21 06:30 MCV 92 fl (84-94) 03/17/21 06:30 MCH 31 pg (28-32) 03/17/21 06:30 MCHC 33 % (32-34) 03/17/21 06:30 RDW 14.6 % (13.2-15.2) 03/17/21 06:30 Plt Count 124 K/mm3 (140-440) L 03/17/21 06:30 Lymph % (Auto) 2.6 % (13.4-35.0) L 03/10/21 05:14 [place] % (Auto) 7.5 % (0.0-7.3) H 03/10/21 05:14 Eos % (Auto) 0.0 % (0.0-4.3) 03/10/21 05:14 Baso % (Auto) 0.1 % (0.0-1.8) 03/10/21 05:14 Lymph # (Auto) 0.3 K/mm3 (1.2-5.4) L 03/10/21 05:14 [place] # (Auto) 0.9 K/mm3 (0.0-0.8) H 03/10/21 05:14 Eos # (Auto) 0.0 K/mm3 (0.0-0.4) 03/10/21 05:14 Baso # (Auto) 0.0 K/mm3 (0.0-0.1) 03/10/21 05:14 Add Manual Diff Complete 03/17/21 06:30 Total Counted 100 03/17/21 06:30 Seg Neutrophils % South Asian History Professor 03/17/21 06:30 Seg Neuts % (Manual) 98.0 % (40.0-70.0) H 03/17/21 06:30 Lymphocytes % (Manual) 2.0 % (13.4-35.0) L 03/17/21 06:30 Monocytes % (Manual) 1.0 % (0.0-7.3) 03/14/21 04:00 Nucleated RBC % Not Reportable 03/17/21 06:30 Seg Neutrophils # 10.8 K/mm3 (1.8-7.7) H 03/10/21 05:14 Seg Neutrophils # Man 25.4 K/mm3 (1.8-7.7) H 03/17/21 06:30 Band Neutrophils # 0.0 K/mm3 03/17/21 06:30 Lymphocytes # (Manual) 0.5 K/mm3 (1.2-5.4) L 03/17/21 06:30 Abs React Lymphs (Man) 0.0 K/mm3 03/17/21 06:30 Monocytes # (Manual) 0.0 K/mm3 (0.0-0.8) 03/17/21 06:30 Eosinophils # (Manual) 0.0 K/mm3 (0.0-0.4) 03/17/21 06:30 Basophils # (Manual) 0.0 K/mm3 (0.0-0.1) 03/17/21 06:30 Metamyelocytes # 0.0 K/mm3 03/17/21 06:30 Myelocytes # 0.0 K/mm3 03/17/21 06:30 Promyelocytes # 85.9 K/mm3 03/17/21 06:30 Blast Cells # 0.0 K/mm3 03/17/21 06:30 WBC Morphology Not Reportable 03/17/21 06:30 Hypersegmented Neuts Not Reportable 03/17/21 06:30 Hyposegmented Neuts Not Reportable 03/17/21 06:30 Hypogranular Neuts Not Reportable 03/17/21 06:30 Smudge Cells Not Reportable 03/17/21 06:30 Toxic Granulation Not Reportable 03/17/21 06:30 Toxic Vacuolation Not Reportable 03/17/21 06:30 Dohle Bodies Not Reportable 03/17/21 06:30 Pelger-Huet Anomaly Not Reportable 03/17/21 06:30 Maritza Rods Not Reportable 03/17/21 06:30 Platelet Estimate Consistent w auto 03/17/21 06:30 Clumped Platelets Not Reportable 03/17/21 06:30 Plt Clumps, EDTA Not Reportable 03/17/21 06:30 Large Platelets Not Reportable 03/17/21 06:30 Giant Platelets Not Reportable 03/17/21 06:30 Platelet Satelliting Not Reportable 03/17/21 06:30 Plt Morphology Comment Not Reportable 03/17/21 06:30 RBC Morphology Not Reportable 03/17/21 06:30 Dimorphic RBCs Not Reportable 03/17/21 06:30 Polychromasia Not Reportable 03/17/21 06:30 Hypochromasia 2+ 03/17/21 06:30 Poikilocytosis Not Reportable 03/17/21 06:30 Anisocytosis Not Reportable 03/17/21 06:30 Microcytosis Not Reportable 03/17/21 06:30 Macrocytosis Few 03/17/21 06:30 Spherocytes Not Reportable 03/17/21 06:30 Pappenheimer Bodies Not Reportable 03/17/21 06:30 Sickle Cells Not Reportable 03/17/21 06:30 Target Cells Not Reportable 03/17/21 06:30 Tear Drop Cells Not Reportable 03/17/21 06:30 Ovalocytes Not Reportable 03/17/21 06:30 Helmet Cells Not Reportable 03/17/21 06:30 Gautam-Old Hundred Bodies Not Reportable 03/17/21 06:30 [place] Rings Not Reportable 03/17/21 06:30 Verónica Cells Not Reportable 03/17/21 06:30 Bite Cells Not Reportable 03/17/21 06:30 Crenated Cell Not Reportable 03/17/21 06:30 Elliptocytes Not Reportable 03/17/21 06:30 Acanthocytes (Spur) Not Reportable 03/17/21 06:30 Rouleaux Not Reportable 03/17/21 06:30 Hemoglobin C Crystals Not Reportable 03/17/21 06:30 Schistocytes Not Reportable 03/17/21 06:30 Malaria parasites Not Reportable 03/17/21 06:30 Timoteo Bodies Not Reportable 03/17/21 06:30 Hem Pathologist Commnt No 03/17/21 06:30 PT 14.6 Sec. (12.2-14.9) 03/11/21 21:50 INR 1.09 (0.87-1.13) 03/11/21 21:50 APTT 63.2 Sec. (24.2-36.6) H* 03/17/21 10:13 D-Dimer 832.06 ng/mlDDU (0-234) H 03/08/21 15:49 Heparin Anti-Xa Level 0.65 U.I./ml (0.3-0.7) 03/13/21 01:44 ABG pH 7.389 (7.320-7.450) 03/17/21 00:35 POC ABG pCO2 69.0 mmHg (32.0-48.0) H 03/17/21 00:35 ABG pCO2 43.0 mm Hg 03/08/21 15:12 POC ABG pO2 84.0 mmHg (83-108) 03/17/21 00:35 ABG pO2 381.9 mm Hg (80.0-90.0) H 03/08/21 15:12 POC ABG HCO3 40.7 03/17/21 00:35 ABG HCO3 31.2 mmol/L (20.0-26.0) H 03/08/21 15:12 ABG O2 Saturation 95.3 (0-100) 03/17/21 00:35 ABG O2 Content 18.9 (0.0-44) 03/08/21 15:12 POC ABG Base Excess 14.2 03/17/21 00:35 ABG Base Excess 6.9 mmol/L (-2.0-3.0) H 03/08/21 15:12 ABG Hemoglobin 7.2 (12.0-17.5) L 03/17/21 00:35 ABG Oxyhemoglobin 94.3 (94-98) 03/17/21 00:35 ABG Carboxyhemoglobin 1.5 % (0.0-5.0) 03/08/21 15:12 ABG Methemoglobin 0.3 (0.0-1.5) 03/17/21 00:35 ABG Sodium 135.0 mmol/L (136.0-145.0) L 03/17/21 00:35 ABG Potassium 3.7 mmol/L (3.40-4.50) 03/17/21 00:35 ABG Chloride 98.0 mmol/L (98-107) 03/17/21 00:35 ABG Glucose 110 mg/dL (65-95) H 03/17/21 00:35 Oxyhemoglobin 97.5 % (95.0-99.0) 03/08/21 15:12 Carboxyhemoglobin 0.8 (0.5-1.5) 03/17/21 00:35 FiO2 100 % 03/08/21 15:12 FiO2 % 70.0 03/16/21 21:59 Sodium 144 mmol/L (137-145) 03/17/21 06:30 Potassium 3.9 mmol/L (3.6-5.0) 03/17/21 06:30 Chloride 99.1 mmol/L (98-107) 03/17/21 06:30 Carbon Dioxide 42 mmol/L (22-30) H* 03/17/21 06:30 Anion Gap 7 mmol/L 03/17/21 06:30 BUN 30 mg/dL (9-20) H 03/17/21 06:30 Creatinine 1.1 mg/dL (0.8-1.3) 03/17/21 06:30 Estimated GFR > 60 ml/min 03/17/21 06:30 BUN/Creatinine Ratio 27 % 03/17/21 06:30 Glucose 171 mg/dL (75-100) H 03/17/21 06:30 POC Glucose 60 mg/dL (70-105) L 03/17/21 18:26 Hemoglobin A1c 5.6 % (4-6) 03/09/21 06:18 Lactic Acid 3.40 mmol/L (0.7-2.0) H* 03/08/21 15:49 Calcium 7.5 mg/dL (8.4-10.2) L 03/17/21 06:30 Phosphorus 2.40 mg/dL (2.5-4.5) L 03/11/21 08:00 Magnesium 2.40 mg/dL (1.7-2.3) H 03/11/21 08:00 Ferritin 1373.0 ng/mL (30.0-300.0) H 03/08/21 15:49 Total Bilirubin 0.70 mg/dL (0.1-1.2) 03/17/21 00:55 Direct Bilirubin 0.3 mg/dL (0-0.2) H 03/17/21 00:55 Indirect Bilirubin 0.4 mg/dL 03/17/21 00:55 AST 229 units/L (5-40) H 03/17/21 00:55 ALT 426 units/L (7-56) H 03/17/21 00:55 Alkaline Phosphatase 41 units/L (35-129) 03/17/21 00:55 Ammonia 22.0 umol/L (25-60) L 03/08/21 15:49 Lactate Dehydrogenase 209 units/L (91-180) H 03/08/21 15:49 Total Creatine Kinase 98 units/L (55-170) 03/10/21 05:14 CK-MB (CK-2) 17.8 ng/mL (0.0-4.0) H 03/10/21 05:14 CK-MB (CK-2) Rel Index 18.1 (0-4) H 03/10/21 05:14 Troponin T 0.261 ng/mL (0.00-0.029) H* D 03/12/21 04:40 C-Reactive Protein 24.00 mg/dL (0.00-1.30) H 03/08/21 15:49 Total Protein 4.6 g/dL (6.3-8.2) L 03/17/21 00:55 Albumin 2.5 g/dL (3.9-5) L 03/17/21 00:55 Albumin/Globulin Ratio 1.2 % 03/17/21 00:55 Prealbumin 0.058 g/L (0.200-0.400) L 03/09/21 00:00 Triglycerides 173 mg/dL (2-149) H 03/10/21 05:14 Cholesterol 130 mg/dL (50-199) 03/10/21 05:14 LDL Cholesterol Direct 68 mg/dL (50-130) 03/10/21 05:14 HDL Cholesterol 36 mg/dL (40-59) L 03/10/21 05:14 Cholesterol/HDL Ratio 3.61 % 03/10/21 05:14 Procalcitonin 1.35 ng/mL (<0.15) 03/08/21 15:49 TSH 2.030 mlU/mL (0.270-4.200) 03/08/21 15:49 Arterial Blood Glucose 110 mg/dL (65-95) H 03/17/21 00:35 Arterial Blood Ionized Calcium 4.0 mg/dL (4.6-5.3) L 03/17/21 00:35 Urine Color Maren (Yellow) 03/08/21 16:54 Urine Turbidity Cloudy (Clear) 03/08/21 16:54 Urine pH 5.0 (5.0-7.0) 03/08/21 16:54 Ur Specific [place] 1.019 (1.003-1.030) 03/08/21 16:54 Urine Protein 100 mg/dl mg/dL (Negative) 03/08/21 16:54 Urine Glucose (UA) Neg mg/dL (Negative) 03/08/21 16:54 Urine Ketones Tr mg/dL (Negative) 03/08/21 16:54 Urine Blood Mod (Negative) 03/08/21 16:54 Urine Nitrite Neg (Negative) 03/08/21 16:54 Urine Bilirubin Neg (Negative) 03/08/21 16:54 Urine Urobilinogen < 2.0 mg/dL (<2.0) 03/08/21 16:54 Ur Leukocyte Esterase Neg (Negative) 03/08/21 16:54 Urine WBC (Auto) 2.0 /HPF (0.0-6.0) 03/08/21 16:54 Urine RBC (Auto) 3.0 /HPF (0.0-6.0) 03/08/21 16:54 U Epithel Cells (Auto) 1.0 /HPF (0-13.0) 03/08/21 16:54 Urine Bacteria (Auto) 1+ /HPF (Negative) 03/08/21 16:54 Hyaline Casts 1 /LPF 03/08/21 16:54 Urine Mucus Few /HPF 03/08/21 16:54 Salicylates 5.6 mg/dL (2.8-20.0) 03/08/21 15:49 Acetaminophen 5.0 ug/mL (10.0-30.0) L 03/08/21 15:49 Coronavirus (PCR) Negative (Negative) 03/10/21 Unknown Blood Type B POSITIVE 03/17/21 09:20 Antibody Screen Negative 03/17/21 09:20 Crossmatch See Detail 03/17/21 09:20 Savage/IV: Voiding Method Condom Catheter Active Medications - Current Medications Current Medications: Generic Name Dose Route Start Last Admin Trade Name Freq PRN Reason Stop Dose Admin Acetaminophen 650 mg 03/08/21 21:36 Acetaminophen 325 Mg Tab PO Q4H PRN Pain MILD(1-3)/Fever >100.5/MYERS Hydrocodone Bitart/Acetaminophen 1 each 03/11/21 13:59 Hydrocodone/Acetaminophen 5-325 Mg Tab PO Q6H PRN Pain, Moderate (4-6) Albuterol 2.5 mg 03/15/21 19:28 03/16/21 21:45 Albuterol 2.5 Mg/3 Ml Nebu IH 2.5 mg Q4HRT PRN Administration Shortness Of Breath Lipase/Protease/Amylase 1 each 03/08/21 21:42 Lipase 10,500/Protease 25,000/Amylase 43,750 (Units) Dr Johnson FEEDTUBE PRN PRN For Clogged Feeding Tube Arformoterol Tartrate 15 mcg 03/10/21 20:00 03/17/21 09:55 Arformoterol 15 Mcg/2 Ml Nebu IH 15 mcg Q12HRT PRINCESS Administration Aspirin 81 mg 03/10/21 15:00 03/17/21 10:47 Aspirin 81 Mg Tab Chew PO Not Given QDAY PRINCESS Atorvastatin Calcium 40 mg 03/11/21 22:00 03/16/21 21:28 Atorvastatin 40 Mg Tab PO 40 mg QHS PRINCESS Administration Budesonide 0.5 mg 03/09/21 20:00 03/17/21 09:55 Budesonide 0.5 Mg/2 Ml Nebu IH 0.5 mg Q12HRT PRINCESS Administration Clopidogrel Bisulfate 75 mg 03/12/21 10:00 03/17/21 10:47 Clopidogrel 75 Mg Tab PO Not Given QDAY PRINCESS Haloperidol Lactate 5 mg 03/13/21 11:15 03/13/21 11:28 Haloperidol Lactate 5 Mg/1 Ml Inj IV 5 mg Q6H PRN Administration Agitation Norepinephrine 4 mg in 250 mls @ 7.5 mls/hr 03/09/21 08:00 03/17/21 07:45 Levophed Drip 4 Mg/Ns 250 Ml IV 2 mcg/min TITR PRINCESS 7.5 mls/hr Titration Protocol 2 MCG/MIN Vasopressin 20 unit/ Sodium 101 mls @ 9.09 mls/hr 03/13/21 18:00 03/14/21 00:42 Chloride IV 0 units/min TITR PRINCESS 0 mls/hr Titration Protocol 0.03 UNITS/MIN Dextrose 1,000 mls @ 42 mls/hr 03/15/21 16:00 03/17/21 13:25 D10w IV 42 mls/hr DIRECT PRINCESS Administration Sodium Chloride 500 mls @ 0 mls/hr 03/17/21 08:51 Nacl 0.9% 500 Ml IV 03/17/21 23:59 ONCE NR As Directed Insulin Human Lispro 0 unit 03/10/21 12:00 03/17/21 12:24 Insulin Lispro 100 Unit/Ml SUB-Q 2 unit Q6HR PRINCESS Administration Protocol Metoclopramide HCl 10 mg 03/08/21 21:36 Metoclopramide 10 Mg/2 Ml Inj IV Q6H PRN Nausea And Vomiting Metoprolol Tartrate 5 mg 03/17/21 16:00 03/17/21 16:15 Metoprolol Tartrate 5 Mg/5 Ml Inj IV 5 mg Q6H PRINCESS Administration Morphine Sulfate 1 mg 03/14/21 17:07 03/16/21 09:35 Morphine 2 Mg/1 Ml Inj IV 1 mg Q4H PRN Administration Pain, Moderate (4-6) Nitroglycerin 0.4 mg 03/16/21 06:00 03/17/21 05:45 Nitroglycerin 0.4 Mg Patch 24hr TD Not Given QDAY@0600 PRINCESS Ondansetron HCl 4 mg 03/08/21 21:36 Ondansetron 4 Mg/2 Ml Inj IV Q3H PRN Nausea And Vomiting Pantoprazole Sodium 40 mg 03/13/21 13:00 03/17/21 10:48 Pantoprazole 40 Mg Inj IV 40 mg BID PRINCESS Administration Simple Syrup 15 ml 03/08/21 21:42 Simple Syrup 15 Ml FEEDTUBE PRN PRN Hypoglycemia Simple Syrup 30 ml 03/08/21 21:42 Simple Syrup 15 Ml FEEDTUBE PRN PRN Hypoglycemia Sodium Bicarbonate 325 mg 03/08/21 21:42 Sodium Bicarbonate 325 Mg Tab FEEDTUBE PRN PRN For Clogged Feeding Tube Sodium Chloride 10 ml 03/08/21 22:00 03/17/21 10:48 Sodium Chloride 0.9% 10 Ml Flush Syringe IV 10 ml BID PRINCESS Administration Sodium Chloride 10 ml 03/08/21 21:36 03/16/21 05:17 Sodium Chloride 0.9% 10 Ml Flush Syringe IV 10 ml PRN PRN Administration LINE FLUSH Nutrition/Malnutrition Assess - Dietary Evaluation Nutrition/Malnutrition Findings: Nutrition Notes Start: 03/09/21 07:48 Freq: Status: Active Protocol: Document 03/17/21 09:59 MK (Rec: 03/17/21 10:02 [id number]) Nutrition Notes Initial or Follow up Brief Note Current Diagnosis Sepsis,Respiratory Failure Other Pertinent Diagnosis pneu, COVID PUI, anemia, AMS Current Diet Cardiac Subjective/Other Information Pt is unable to consume PO due to continous bipap. Nutrition Intervention Follow-Up By: 03/19/21 Additional Comments F/u: intakes, POC <ROMINA ROE R - Last Filed: 03/18/21 22:08> Assessment and Plan Assessment and plan: I saw and evaluated the patient. I agree with the findings and the plan of care as documented in the Nurse Practitioner's~note, Hospitalist Physical - Constitutional Vitals: Temp Pulse Resp BP Pulse Ox 98.0 F 77 16 135/56 100 03/18/21 20:00 03/18/21 18:30 03/18/21 18:30 03/18/21 18:30 03/18/21 18:30 HEART Score - HEART Score Troponin: Troponin T 0.261 ng/mL (0.00-0.029) H* D 03/12/21 04:40 Results - Labs CBC & Chem 7: 03/18/21 10:25 03/18/21 05:00 Labs: Laboratory Last Values WBC 35.7 K/mm3 (4.5-11.0) H 03/18/21 05:00 RBC 2.59 M/mm3 (3.65-5.03) L 03/18/21 05:00 Hgb 7.8 gm/dl (11.8-15.2) L 03/18/21 10:25 Hct 23.3 % (35.5-45.6) L 03/18/21 10:25 MCV 90 fl (84-94) 03/18/21 05:00 MCH 30 pg (28-32) 03/18/21 05:00 MCHC 34 % (32-34) 03/18/21 05:00 RDW 16.6 % (13.2-15.2) H 03/18/21 05:00 Plt Count 79 K/mm3 (140-440) L 03/18/21 05:00 Lymph % (Auto) 2.6 % (13.4-35.0) L 03/10/21 05:14 [place] % (Auto) 7.5 % (0.0-7.3) H 03/10/21 05:14 Eos % (Auto) 0.0 % (0.0-4.3) 03/10/21 05:14 Baso % (Auto) 0.1 % (0.0-1.8) 03/10/21 05:14 Lymph # (Auto) 0.3 K/mm3 (1.2-5.4) L 03/10/21 05:14 [place] # (Auto) 0.9 K/mm3 (0.0-0.8) H 03/10/21 05:14 Eos # (Auto) 0.0 K/mm3 (0.0-0.4) 03/10/21 05:14 Baso # (Auto) 0.0 K/mm3 (0.0-0.1) 03/10/21 05:14 Add Manual Diff Complete 03/18/21 05:00 Total Counted 100 03/18/21 05:00 Seg Neutrophils % South Asian History Professor 03/18/21 05:00 Seg Neuts % (Manual) 93.0 % (40.0-70.0) H 03/18/21 05:00 Band Neutrophils % 5.0 % 03/18/21 05:00 Lymphocytes % (Manual) 2.0 % (13.4-35.0) L 03/17/21 06:30 Monocytes % (Manual) 2.0 % (0.0-7.3) 03/18/21 05:00 Nucleated RBC % Not Reportable 03/18/21 05:00 Seg Neutrophils # 10.8 K/mm3 (1.8-7.7) H 03/10/21 05:14 Seg Neutrophils # Man 33.2 K/mm3 (1.8-7.7) H 03/18/21 05:00 Band Neutrophils # 1.8 K/mm3 03/18/21 05:00 Lymphocytes # (Manual) 0.0 K/mm3 (1.2-5.4) L 03/18/21 05:00 Abs React Lymphs (Man) 0.0 K/mm3 03/18/21 05:00 Monocytes # (Manual) 0.7 K/mm3 (0.0-0.8) 03/18/21 05:00 Eosinophils # (Manual) 0.0 K/mm3 (0.0-0.4) 03/18/21 05:00 Basophils # (Manual) 0.0 K/mm3 (0.0-0.1) 03/18/21 05:00 Metamyelocytes # 0.0 K/mm3 03/18/21 05:00 Myelocytes # 0.0 K/mm3 03/18/21 05:00 Promyelocytes # 0.0 K/mm3 03/18/21 05:00 Blast Cells # 0.0 K/mm3 03/18/21 05:00 Pathologist Review 03/18/21 05:00 WBC Morphology Not Reportable 03/17/21 06:30 Hypersegmented Neuts Not Reportable 03/18/21 05:00 Hyposegmented Neuts Not Reportable 03/18/21 05:00 Hypogranular Neuts Not Reportable 03/18/21 05:00 Smudge Cells Not Reportable 03/18/21 05:00 Toxic Granulation Not Reportable 03/18/21 05:00 Toxic Vacuolation Not Reportable 03/18/21 05:00 Dohle Bodies Not Reportable 03/18/21 05:00 Pelger-Huet Anomaly Not Reportable 03/18/21 05:00 Maritza Rods Not Reportable 03/18/21 05:00 Platelet Estimate Consistent w auto 03/18/21 05:00 Clumped Platelets Not Reportable 03/18/21 05:00 Plt Clumps, EDTA Not Reportable 03/18/21 05:00 Large Platelets Not Reportable 03/18/21 05:00 Giant Platelets Not Reportable 03/18/21 05:00 Platelet Satelliting Not Reportable 03/18/21 05:00 Plt Morphology Comment Not Reportable 03/18/21 05:00 RBC Morphology Not Reportable 03/18/21 05:00 Dimorphic RBCs Not Reportable 03/18/21 05:00 Polychromasia Not Reportable 03/18/21 05:00 Hypochromasia Not Reportable 03/18/21 05:00 Poikilocytosis Not Reportable 03/18/21 05:00 Anisocytosis Few 03/18/21 05:00 Microcytosis Not Reportable 03/18/21 05:00 Macrocytosis Not Reportable 03/18/21 05:00 Spherocytes Not Reportable 03/18/21 05:00 Pappenheimer Bodies Not Reportable 03/18/21 05:00 Sickle Cells Not Reportable 03/18/21 05:00 Target Cells Not Reportable 03/18/21 05:00 Tear Drop Cells Not Reportable 03/18/21 05:00 Ovalocytes Not Reportable 03/18/21 05:00 Helmet Cells Not Reportable 03/18/21 05:00 [place] Bodies Not Reportable 03/18/21 05:00 [place] Rings Not Reportable 03/18/21 05:00 [place] Cells Not Reportable 03/18/21 05:00 Bite Cells Not Reportable 03/18/21 05:00 Crenated Cell Not Reportable 03/18/21 05:00 Elliptocytes Not Reportable 03/18/21 05:00 Acanthocytes (Spur) Not Reportable 03/18/21 05:00 Rouleaux Not Reportable 03/18/21 05:00 Hemoglobin C Crystals Not Reportable 03/18/21 05:00 Schistocytes Not Reportable 03/18/21 05:00 Malaria parasites Not Reportable 03/18/21 05:00 Itmoteo Bodies Not Reportable 03/18/21 05:00 Hem Pathologist Commnt Sent to pathology 03/18/21 05:00 PT 14.6 Sec. (12.2-14.9) 03/11/21 21:50 INR 1.09 (0.87-1.13) 03/11/21 21:50 APTT 49.2 Sec. (24.2-36.6) H 03/18/21 10:25 D-Dimer 832.06 ng/mlDDU (0-234) H 03/08/21 15:49 Heparin Anti-Xa Level 0.65 U.I./ml (0.3-0.7) 03/13/21 01:44 ABG pH 7.389 (7.320-7.450) 03/17/21 00:35 POC ABG pCO2 69.0 mmHg (32.0-48.0) H 03/17/21 00:35 ABG pCO2 43.0 mm Hg 03/08/21 15:12 POC ABG pO2 84.0 mmHg (83-108) 03/17/21 00:35 ABG pO2 381.9 mm Hg (80.0-90.0) H 03/08/21 15:12 POC ABG HCO3 40.7 03/17/21 00:35 ABG HCO3 31.2 mmol/L (20.0-26.0) H 03/08/21 15:12 ABG O2 Saturation 95.3 (0-100) 03/17/21 00:35 ABG O2 Content 18.9 (0.0-44) 03/08/21 15:12 POC ABG Base Excess 14.2 03/17/21 00:35 ABG Base Excess 6.9 mmol/L (-2.0-3.0) H 03/08/21 15:12 ABG Hemoglobin 7.2 (12.0-17.5) L 03/17/21 00:35 ABG Oxyhemoglobin 94.3 (94-98) 03/17/21 00:35 ABG Carboxyhemoglobin 1.5 % (0.0-5.0) 03/08/21 15:12 ABG Methemoglobin 0.3 (0.0-1.5) 03/17/21 00:35 ABG Sodium 135.0 mmol/L (136.0-145.0) L 03/17/21 00:35 ABG Potassium 3.7 mmol/L (3.40-4.50) 03/17/21 00:35 ABG Chloride 98.0 mmol/L (98-107) 03/17/21 00:35 ABG Glucose 110 mg/dL (65-95) H 03/17/21 00:35 Oxyhemoglobin 97.5 % (95.0-99.0) 03/08/21 15:12 Carboxyhemoglobin 0.8 (0.5-1.5) 03/17/21 00:35 FiO2 100 % 03/08/21 15:12 FiO2 % 70.0 03/16/21 21:59 Sodium 142 mmol/L (137-145) 03/18/21 05:00 Potassium 3.7 mmol/L (3.6-5.0) 03/18/21 05:00 Chloride 97.0 mmol/L (98-107) L 03/18/21 05:00 Carbon Dioxide 44 mmol/L (22-30) H* 03/18/21 05:00 Anion Gap 5 mmol/L 03/18/21 05:00 BUN 27 mg/dL (9-20) H 03/18/21 05:00 Creatinine 1.1 mg/dL (0.8-1.3) 03/18/21 05:00 Estimated GFR > 60 ml/min 03/18/21 05:00 BUN/Creatinine Ratio 25 % 03/18/21 05:00 Glucose 119 mg/dL (75-100) H 03/18/21 05:00 POC Glucose 110 mg/dL (70-105) H 03/18/21 21:41 Hemoglobin A1c 5.6 % (4-6) 03/09/21 06:18 Lactic Acid 3.40 mmol/L (0.7-2.0) H* 03/08/21 15:49 Calcium 7.3 mg/dL (8.4-10.2) L 03/18/21 05:00 Phosphorus 1.90 mg/dL (2.5-4.5) L 03/18/21 05:00 Magnesium 1.60 mg/dL (1.7-2.3) L 03/18/21 05:00 Ferritin 1373.0 ng/mL (30.0-300.0) H 03/08/21 15:49 Total Bilirubin 1.00 mg/dL (0.1-1.2) 03/18/21 05:00 Direct Bilirubin 0.3 mg/dL (0-0.2) H 03/18/21 05:00 Indirect Bilirubin 0.7 mg/dL 03/18/21 05:00 AST 228 units/L (5-40) H 03/18/21 05:00 ALT 406 units/L (7-56) H 03/18/21 05:00 Alkaline Phosphatase 41 units/L (35-129) 03/18/21 05:00 Ammonia 22.0 umol/L (25-60) L 03/08/21 15:49 Lactate Dehydrogenase 209 units/L (91-180) H 03/08/21 15:49 Total Creatine Kinase 98 units/L (55-170) 03/10/21 05:14 CK-MB (CK-2) 17.8 ng/mL (0.0-4.0) H 03/10/21 05:14 CK-MB (CK-2) Rel Index 18.1 (0-4) H 03/10/21 05:14 Troponin T 0.261 ng/mL (0.00-0.029) H* D 03/12/21 04:40 C-Reactive Protein 24.00 mg/dL (0.00-1.30) H 03/08/21 15:49 Total Protein 4.8 g/dL (6.3-8.2) L 03/18/21 05:00 Albumin 2.4 g/dL (3.9-5) L 03/18/21 05:00 Albumin/Globulin Ratio 1.0 % 03/18/21 05:00 Prealbumin 0.058 g/L (0.200-0.400) L 03/09/21 00:00 Triglycerides 173 mg/dL (2-149) H 03/10/21 05:14 Cholesterol 130 mg/dL (50-199) 03/10/21 05:14 LDL Cholesterol Direct 68 mg/dL (50-130) 03/10/21 05:14 HDL Cholesterol 36 mg/dL (40-59) L 03/10/21 05:14 Cholesterol/HDL Ratio 3.61 % 03/10/21 05:14 Procalcitonin 1.35 ng/mL (<0.15) 03/08/21 15:49 TSH 2.030 mlU/mL (0.270-4.200) 03/08/21 15:49 Arterial Blood Glucose 110 mg/dL (65-95) H 03/17/21 00:35 Arterial Blood Ionized Calcium 4.0 mg/dL (4.6-5.3) L 03/17/21 00:35 Urine Color Maren (Yellow) 03/08/21 16:54 Urine Turbidity Cloudy (Clear) 03/08/21 16:54 Urine pH 5.0 (5.0-7.0) 03/08/21 16:54 Ur Specific [place] 1.019 (1.003-1.030) 03/08/21 16:54 Urine Protein 100 mg/dl mg/dL (Negative) 03/08/21 16:54 Urine Glucose (UA) Neg mg/dL (Negative) 03/08/21 16:54 Urine Ketones Tr mg/dL (Negative) 03/08/21 16:54 Urine Blood Mod (Negative) 03/08/21 16:54 Urine Nitrite Neg (Negative) 03/08/21 16:54 Urine Bilirubin Neg (Negative) 03/08/21 16:54 Urine Urobilinogen < 2.0 mg/dL (<2.0) 03/08/21 16:54 Ur Leukocyte Esterase Neg (Negative) 03/08/21 16:54 Urine WBC (Auto) 2.0 /HPF (0.0-6.0) 03/08/21 16:54 Urine RBC (Auto) 3.0 /HPF (0.0-6.0) 03/08/21 16:54 U Epithel Cells (Auto) 1.0 /HPF (0-13.0) 03/08/21 16:54 Urine Bacteria (Auto) 1+ /HPF (Negative) 03/08/21 16:54 Hyaline Casts 1 /LPF 03/08/21 16:54 Urine Mucus Few /HPF 03/08/21 16:54 Salicylates 5.6 mg/dL (2.8-20.0) 03/08/21 15:49 Acetaminophen 5.0 ug/mL (10.0-30.0) L 03/08/21 15:49 Coronavirus (PCR) Negative (Negative) 03/10/21 Unknown Blood Type B POSITIVE 03/17/21 09:20 Antibody Screen Negative 03/17/21 09:20 Crossmatch See Detail 03/17/21 09:20 Savage/IV: Voiding Method Condom Catheter Active Medications - Current Medications Current Medications: Generic Name Dose Route Start Last Admin Trade Name Freq PRN Reason Stop Dose Admin Acetaminophen 650 mg 03/08/21 21:36 Acetaminophen 325 Mg Tab PO Q4H PRN Pain MILD(1-3)/Fever >100.5/MYERS Hydrocodone Bitart/Acetaminophen 1 each 03/11/21 13:59 Hydrocodone/Acetaminophen 5-325 Mg Tab PO Q6H PRN Pain, Moderate (4-6) Albuterol 2.5 mg 03/15/21 19:28 03/16/21 21:45 Albuterol 2.5 Mg/3 Ml Nebu IH 2.5 mg Q4HRT PRN Administration Shortness Of Breath Lipase/Protease/Amylase 1 each 03/08/21 21:42 Lipase 10,500/Protease 25,000/Amylase 43,750 (Units) Dr Johnson FEEDTUBE PRN PRN For Clogged Feeding Tube Arformoterol Tartrate 15 mcg 03/10/21 20:00 03/18/21 09:07 Arformoterol 15 Mcg/2 Ml Nebu IH 15 mcg Q12HRT PRINCESS Administration Aspirin 81 mg 03/10/21 15:00 03/18/21 09:06 Aspirin 81 Mg Tab Chew PO 81 mg QDAY PRINCESS Administration Atorvastatin Calcium 40 mg 03/11/21 22:00 03/17/21 22:06 Atorvastatin 40 Mg Tab PO 40 mg QHS PRINCESS Administration Budesonide 0.5 mg 03/09/21 20:00 03/18/21 09:07 Budesonide 0.5 Mg/2 Ml Nebu IH 0.5 mg Q12HRT PRINCESS Administration Clopidogrel Bisulfate 75 mg 03/12/21 10:00 03/18/21 09:06 Clopidogrel 75 Mg Tab PO 75 mg QDAY PRINCESS Administration Dextrose 50 ml 03/17/21 20:20 Dextrose 50% In Water (25gm) 50 Ml Syringe IV Q30MIN PRN Hypoglycemia Protocol Haloperidol Lactate 5 mg 03/13/21 11:15 03/13/21 11:28 Haloperidol Lactate 5 Mg/1 Ml Inj IV 5 mg Q6H PRN Administration Agitation Dextrose 1,000 mls @ 42 mls/hr 03/15/21 16:00 03/18/21 12:39 D10w IV 42 mls/hr DIRECT PRINCESS Administration Argatroban 250 mg/ Sodium 250 mls @ 1.527 mls/hr 03/18/21 08:00 03/18/21 09:02 Chloride IV 0.5 mcg/kg/min DIRECT PRINCESS 1.527 mls/hr Administration 0.5 MCG/KG/MIN Insulin Human Lispro 0 unit 03/10/21 12:00 03/18/21 17:57 Insulin Lispro 100 Unit/Ml SUB-Q 2 unit Q6HR PRINCESS Administration Protocol Methylprednisolone Sodium Succinate 40 mg 03/18/21 12:00 03/18/21 13:19 Methylprednisolone Sod Succinate 40 Mg/1 Ml Inj IV 40 mg Q24HR PRINCESS Administration Metoclopramide HCl 10 mg 03/08/21 21:36 Metoclopramide 10 Mg/2 Ml Inj IV Q6H PRN Nausea And Vomiting Metoprolol Tartrate 5 mg 03/17/21 16:00 03/18/21 16:58 Metoprolol Tartrate 5 Mg/5 Ml Inj IV 5 mg Q6H PRINCESS Administration Morphine Sulfate 1 mg 03/14/21 17:07 03/16/21 09:35 Morphine 2 Mg/1 Ml Inj IV 1 mg Q4H PRN Administration Pain, Moderate (4-6) Nitroglycerin 0.4 mg 03/16/21 06:00 03/18/21 06:06 Nitroglycerin 0.4 Mg Patch 24hr TD 0.4 mg QDAY@0600 PRINCESS Administration Ondansetron HCl 4 mg 03/08/21 21:36 Ondansetron 4 Mg/2 Ml Inj IV Q3H PRN Nausea And Vomiting Pantoprazole Sodium 40 mg 03/13/21 13:00 03/18/21 09:06 Pantoprazole 40 Mg Inj IV 40 mg BID PRINCESS Administration Simple Syrup 15 ml 03/08/21 21:42 Simple Syrup 15 Ml FEEDTUBE PRN PRN Hypoglycemia Simple Syrup 30 ml 03/08/21 21:42 Simple Syrup 15 Ml FEEDTUBE PRN PRN Hypoglycemia Sodium Bicarbonate 325 mg 03/08/21 21:42 Sodium Bicarbonate 325 Mg Tab FEEDTUBE PRN PRN For Clogged Feeding Tube Sodium Chloride 10 ml 03/08/21 22:00 03/18/21 10:39 Sodium Chloride 0.9% 10 Ml Flush Syringe IV 10 ml BID PRINCESS Administration Sodium Chloride 10 ml 03/08/21 21:36 03/16/21 05:17 Sodium Chloride 0.9% 10 Ml Flush Syringe IV 10 ml PRN PRN Administration LINE FLUSH Sodium Phosphate 250 mg 03/18/21 14:00 03/18/21 13:19 K-Phos Neutral 250 Mg Tab PO 03/19/21 23:59 250 mg QID PRINCESS Administration Nutrition/Malnutrition Assess - Dietary Evaluation Nutrition/Malnutrition Findings: Nutrition Notes Start: 03/09/21 07:48 Freq: Status: Active Protocol: Document 03/18/21 14:12 JEROME (Rec: 03/18/21 14:22 [email or web address]) Nutrition Notes Need for Assessment generated from: MD Order Initial or Follow up Reassessment Current Diagnosis Sepsis,Respiratory Failure Other Pertinent Diagnosis pneu, COVID PUI, anemia, AMS Current Diet Cardiac Labs/Tests Phos 1.9 Mg 1.6 POC BG 60-143 Pertinent Medications K-Phos 250 mg Solu Medrol D10w at 42ml/hr Mg Sulfate Na Phosphate Height 5 ft 5 in Weight 50.9 kg Dawson Body Weight (kg) 61.81 BMI 18.6 Weight Status Underweight Subjective/Other Information MD consult for TF. TF not recommended d/t risk of aspiration on bipap. PPN recommeneded as pt at nutritonal risk. Pt with blackish stools yesterday. Burn Absent Trauma Absent Current % PO Negligible Minimum of two criteria Yes Energy Intake (severe) < or equal to 50% Estimated Energy Requirement > or equal to 5 days Body Fat Depletion Mild depletion (non-severe) #2 Nutrition Diagnosis Malnutrition Etiology acute illness As Evidenced by Signs and Symptoms <50% of EER in 5 days, fat wasting #1 Nutrition Diagnosis Inadequate oral intake As Evidenced by Signs and Symptoms pt not able to eat/drink Diagnosis Progress(for reassessment Worsened documentation) Is patient on ventilator? No Is Patient Ambulatory and/or Out of Bed No REE-([place]-St. Jeor-confined to bed) 0104.876 Calculation Used for Recommendations [place]-St Jeor Additional Notes Protein: (1-1.2g/kg) 61-62g Fluid: 1 ml/kcal or per MD Nutrition Intervention Change Diet Order: Start TF Nutrition Support: Osmolite 1.5 at 40 ml/hr Flush 100 ml q4h or per MD Kcal 1,440 Protein (gm) 60 Fluid (mL) 732 Goal #1 Meet at least 75% of energy and protein needs via TF Anticipated Discharge Needs: cardiac Follow-Up By: 03/20/21 Additional Comments F/u: TF start/tolerance, respiratory status
[2021-03-17] MEDS ORDERED: DEXTROSE 50% IN WATER (25GM) 50 ML SYRINGE IV PRN (20:20)
[2021-03-18] MEDS: METOPROLOL TARTRATE 5 MG/5 ML INJ IV SCH ×4 (04:15→22:18)
[2021-03-18] MEDS: INSULIN LISPRO 100 UNIT/ML SUB-Q SCH ×4 (04:17→17:57)
[2021-03-18 05:34] LABS: Hematocrit 23.3 % (35.5-45.6); Hemoglobin 7.9 gm/dl (11.8-15.2); Mean Corpuscular HGB Conc 34 % (32-34); Mean Corpuscular Volume 90 fl (84-94); Red Blood Count 2.59 M/mm3 (3.65-5.03); Red Cell Distribution Width 16.6 % (13.2-15.2)
[2021-03-18 05:37] LABS: Platelet Count 79 K/mm3 (140-440)
[2021-03-18 05:48] LABS: Alanine Aminotransferase 406 units/L (7-56); Albumin 2.4 g/dL (3.9-5); BUN/Creatinine Ratio 25; Bilirubin,Direct 0.3 mg/dL (0-0.2); Blood Urea Nitrogen 27 mg/dL (9-20); Calcium 7.3 mg/dL (8.4-10.2); Hemolysis Index 4
[2021-03-18] MEDS: NITROGLYCERIN 0.4 MG PATCH 24HR TD SCH (06:06)
[2021-03-18 06:36] LABS: Anisocytosis Few; Band Neutrophils # (Manual) 1.8 K/mm3; Platelet Estimate Consistent w Auto; Total Cells Counted 100
[2021-03-18] MEDS ORDERED: SODIUM PHOSPHATE 30 MMOL in SODIUM CHLORIDE 0.9% 500 ML 500 ML IV ONE (08:00)
[2021-03-18] MEDS ORDERED: MAGNESIUM SULFATE 2 GM/50 ML BAG IV ONE (08:00)
[2021-03-18] MEDS ORDERED: ARGATROBAN 250 MG in SODIUM CHLORIDE 0.9% 250ML 247.5 ML IV SCH (08:00)
[2021-03-18] MEDS: PANTOPRAZOLE 40 MG INJ IV SCH ×2 (09:06→22:19)
[2021-03-18] MEDS: ASPIRIN 81 MG TAB CHEW PO SCH (09:06)
[2021-03-18] MEDS: CLOPIDOGREL 75 MG TAB PO SCH (09:06)
[2021-03-18] MEDS: ARFORMOTEROL 15 MCG/2 ML NEBU IH SCH ×2 (09:07→23:00)
[2021-03-18] MEDS: BUDESONIDE 0.5 MG/2 ML NEBU IH SCH ×2 (09:07→23:00)
--- NOTE | 2021-03-18 09:47 | Hem/Onc Progress Note ---
Subjective Interval history: televisit by telephone televisit via [facility] CPT 01482 dx: heparin-induced thrombocytopenia 65yo man who had STEMI-->cath-->R foot ischemia--> IV heparin confusion, retroperitoneal hematoma and GI tract bleeding argatroban 03/16-->stopped 03/17 RBC transfusion 03/17/21 today resuming low dose argatroban Exam: on oxygen FM, interactive, language barrier R foot black ties DATA REVIEWED BELOW AST 228 /ALT 406 IMP Presumed heparin induced thrombocytopenia seems like he benefitted a little from a day of low dose argatroban challenging to treat HIT with argatroban because of GI tract bleeding elevated liver enzymes, presumed to be acute hepatic injury REC: Argatroban drip low dose, as long as no overt bkleeding steroid taper Awaiting pf4 antibody Laboratory Last Values WBC 35.7 K/mm3 (4.5-11.0) H 03/18/21 05:00 Hgb 7.9 gm/dl (11.8-15.2) L 03/18/21 05:00 Hct 23.3 % (35.5-45.6) L 03/18/21 05:00 Plt Count 79 K/mm3 (140-440) L 03/18/21 05:00 APTT 63.2 Sec. (24.2-36.6) H* 03/17/21 10:13 D-Dimer 832.06 ng/mlDDU (0-234) H 03/08/21 15:49 Creatinine 1.1 mg/dL (0.8-1.3) 03/18/21 05:00 Total Bilirubin 1.00 mg/dL (0.1-1.2) 03/18/21 05:00 Direct Bilirubin 0.3 mg/dL (0-0.2) H 03/18/21 05:00 Indirect Bilirubin 0.7 mg/dL 03/18/21 05:00 AST 228 units/L (5-40) H 03/18/21 05:00 ALT 406 units/L (7-56) H 03/18/21 05:00 Crossmatch See Detail 03/17/21 09:20 Objective - Constitutional Vitals: Last Vital Signs Temp 98.9 F 03/18/21 03:47 Pulse 84 03/18/21 09:08 Resp 20 03/18/21 09:08 BP 141/70 03/18/21 09:07 Pulse Ox 98 03/18/21 09:09 - Labs Lab Results: Laboratory Results - last 24 hr 03/13/21 03/17/21 03/17/21 15:22 06:30 09:20 WBC RBC Hgb Hct MCV MCH MCHC RDW Plt Count Add Manual Diff Complete Total Counted 100 Seg Neutrophils % Seg Neuts % (Manual) 98.0 H Band Neutrophils % Lymphocytes % (Manual) 2.0 L Monocytes % (Manual) Nucleated RBC % Not Reportable Seg Neutrophils # Man 25.4 H Band Neutrophils # 0.0 Lymphocytes # (Manual) 0.5 L Abs React Lymphs (Man) 0.0 Monocytes # (Manual) 0.0 Eosinophils # (Manual) 0.0 Basophils # (Manual) 0.0 Metamyelocytes # 0.0 Myelocytes # 0.0 Promyelocytes # 85.9 Blast Cells # 0.0 WBC Morphology Not Reportable Hypersegmented Neuts Not Reportable Hyposegmented Neuts Not Reportable Hypogranular Neuts Not Reportable Smudge Cells Not Reportable Toxic Granulation Not Reportable Toxic Vacuolation Not Reportable Dohle Bodies Not Reportable Pelger-Huet Anomaly Not Reportable Maritza Rods Not Reportable Platelet Estimate Consistent w auto Clumped Platelets Not Reportable Plt Clumps, EDTA Not Reportable Large Platelets Not Reportable Giant Platelets Not Reportable Platelet Satelliting Not Reportable Plt Morphology Comment Not Reportable RBC Morphology Not Reportable Dimorphic RBCs Not Reportable Polychromasia Not Reportable Hypochromasia 2+ Poikilocytosis Not Reportable Anisocytosis Not Reportable Microcytosis Not Reportable Macrocytosis Few Spherocytes Not Reportable Pappenheimer Bodies Not Reportable Sickle Cells Not Reportable Target Cells Not Reportable Tear Drop Cells Not Reportable Ovalocytes Not Reportable Helmet Cells Not Reportable Gautam-Lashmeet Bodies Not Reportable [place] Rings Not Reportable [place] Cells Not Reportable Bite Cells Not Reportable Crenated Cell Not Reportable Elliptocytes Not Reportable Acanthocytes (Spur) Not Reportable Rouleaux Not Reportable Hemoglobin C Crystals Not Reportable Schistocytes Not Reportable Malaria parasites Not Reportable [place]oteo Bodies Not Reportable Hem Pathologist Commnt No APTT Sodium Potassium Chloride Carbon Dioxide Anion Gap BUN Creatinine Estimated GFR BUN/Creatinine Ratio Glucose POC Glucose Calcium Phosphorus Magnesium Total Bilirubin Direct Bilirubin Indirect Bilirubin AST ALT Alkaline Phosphatase Total Protein Albumin Albumin/Globulin Ratio Blood Type B POSITIVE B POSITIVE Antibody Screen Negative Negative Crossmatch See Detail See Detail 03/17/21 03/17/21 03/17/21 10:13 11:57 12:01 WBC RBC Hgb Hct MCV MCH MCHC RDW Plt Count Add Manual Diff Total Counted Seg Neutrophils % Seg Neuts % (Manual) Band Neutrophils % Lymphocytes % (Manual) Monocytes % (Manual) Nucleated RBC % Seg Neutrophils # Man Band Neutrophils # Lymphocytes # (Manual) Abs React Lymphs (Man) Monocytes # (Manual) Eosinophils # (Manual) Basophils # (Manual) Metamyelocytes # Myelocytes # Promyelocytes # Blast Cells # WBC Morphology Hypersegmented Neuts Hyposegmented Neuts Hypogranular Neuts Smudge Cells Toxic Granulation Toxic Vacuolation Dohle Bodies Pelger-Huet Anomaly Maritza Rods Platelet Estimate Clumped Platelets Plt Clumps, EDTA Large Platelets Giant Platelets Platelet Satelliting Plt Morphology Comment RBC Morphology Dimorphic RBCs Polychromasia Hypochromasia Poikilocytosis Anisocytosis Microcytosis Macrocytosis Spherocytes Pappenheimer Bodies Sickle Cells Target Cells Tear Drop Cells Ovalocytes Helmet Cells Gautam-Lashmeet Bodies [place] Rings [place] Cells Bite Cells Crenated Cell Elliptocytes Acanthocytes (Spur) Rouleaux Hemoglobin C Crystals Schistocytes Malaria parasites Timoteo Bodies Hem Pathologist Commnt APTT 63.2 H* Sodium Potassium Chloride Carbon Dioxide Anion Gap BUN Creatinine Estimated GFR BUN/Creatinine Ratio Glucose POC Glucose 48 L 159 H Calcium Phosphorus Magnesium Total Bilirubin Direct Bilirubin Indirect Bilirubin AST ALT Alkaline Phosphatase Total Protein Albumin Albumin/Globulin Ratio Blood Type Antibody Screen Crossmatch 03/17/21 03/17/21 03/17/21 17:09 18:23 18:26 WBC RBC Hgb Hct MCV MCH MCHC RDW Plt Count Add Manual Diff Total Counted Seg Neutrophils % Seg Neuts % (Manual) Band Neutrophils % Lymphocytes % (Manual) Monocytes % (Manual) Nucleated RBC % Seg Neutrophils # Man Band Neutrophils # Lymphocytes # (Manual) Abs React Lymphs (Man) Monocytes # (Manual) Eosinophils # (Manual) Basophils # (Manual) Metamyelocytes # Myelocytes # Promyelocytes # Blast Cells # WBC Morphology Hypersegmented Neuts Hyposegmented Neuts Hypogranular Neuts Smudge Cells Toxic Granulation Toxic Vacuolation Dohle Bodies Pelger-Huet Anomaly Maritza Rods Platelet Estimate Clumped Platelets Plt Clumps, EDTA Large Platelets Giant Platelets Platelet Satelliting Plt Morphology Comment RBC Morphology Dimorphic RBCs Polychromasia Hypochromasia Poikilocytosis Anisocytosis Microcytosis Macrocytosis Spherocytes Pappenheimer Bodies Sickle Cells Target Cells Tear Drop Cells Ovalocytes Helmet Cells Gautam-Lashmeet Bodies [place] Rings [place] Cells Bite Cells Crenated Cell Elliptocytes Acanthocytes (Spur) Rouleaux Hemoglobin C Crystals Schistocytes Malaria parasites Timoteo Bodies Hem Pathologist Commnt APTT Sodium Potassium Chloride Carbon Dioxide Anion Gap BUN Creatinine Estimated GFR BUN/Creatinine Ratio Glucose POC Glucose 68 L 60 L 60 L Calcium Phosphorus Magnesium Total Bilirubin Direct Bilirubin Indirect Bilirubin AST ALT Alkaline Phosphatase Total Protein Albumin Albumin/Globulin Ratio Blood Type Antibody Screen Crossmatch 03/17/21 03/18/21 03/18/21 23:38 05:00 05:00 WBC 35.7 H RBC 2.59 L Hgb 7.9 L Hct 23.3 L MCV 90 MCH 30 MCHC 34 RDW 16.6 H Plt Count 79 L Add Manual Diff Complete Total Counted 100 Seg Neutrophils % Relief Manager Seg Neuts % (Manual) 93.0 H Band Neutrophils % 5.0 Lymphocytes % (Manual) Monocytes % (Manual) 2.0 Nucleated RBC % Not Reportable Seg Neutrophils # Man 33.2 H Band Neutrophils # 1.8 Lymphocytes # (Manual) 0.0 L Abs React Lymphs (Man) 0.0 Monocytes # (Manual) 0.7 Eosinophils # (Manual) 0.0 Basophils # (Manual) 0.0 Metamyelocytes # 0.0 Myelocytes # 0.0 Promyelocytes # 0.0 Blast Cells # 0.0 WBC Morphology Hypersegmented Neuts Not Reportable Hyposegmented Neuts Not Reportable Hypogranular Neuts Not Reportable Smudge Cells Not Reportable Toxic Granulation Not Reportable Toxic Vacuolation Not Reportable Dohle Bodies Not Reportable Pelger-Huet Anomaly Not Reportable Maritza Rods Not Reportable Platelet Estimate Consistent w auto Clumped Platelets Not Reportable Plt Clumps, EDTA Not Reportable Large Platelets Not Reportable Giant Platelets Not Reportable Platelet Satelliting Not Reportable Plt Morphology Comment Not Reportable RBC Morphology Not Reportable Dimorphic RBCs Not Reportable Polychromasia Not Reportable Hypochromasia Not Reportable Poikilocytosis Not Reportable Anisocytosis Few Microcytosis Not Reportable Macrocytosis Not Reportable Spherocytes Not Reportable Pappenheimer Bodies Not Reportable Sickle Cells Not Reportable Target Cells Not Reportable Tear Drop Cells Not Reportable Ovalocytes Not Reportable Helmet Cells Not Reportable Gautam-Lashmeet Bodies Not Reportable [place] Rings Not Reportable [place] Cells Not Reportable Bite Cells Not Reportable Crenated Cell Not Reportable Elliptocytes Not Reportable Acanthocytes (Spur) Not Reportable Rouleaux Not Reportable Hemoglobin C Crystals Not Reportable Schistocytes Not Reportable Malaria parasites Not Reportable Timoteo Bodies Not Reportable Hem Pathologist Commnt Sent to pathology APTT Sodium 142 Potassium 3.7 Chloride 97.0 L Carbon Dioxide 44 H* Anion Gap 5 BUN 27 H Creatinine 1.1 Estimated GFR > 60 BUN/Creatinine Ratio 25 Glucose 119 H POC Glucose 80 Calcium 7.3 L Phosphorus 1.90 L Magnesium 1.60 L Total Bilirubin 1.00 Direct Bilirubin 0.3 H Indirect Bilirubin 0.7 AST 228 H ALT 406 H Alkaline Phosphatase 41 Total Protein 4.8 L Albumin 2.4 L Albumin/Globulin Ratio 1.0 Blood Type Antibody Screen Crossmatch 03/18/21 05:53 WBC RBC Hgb Hct MCV MCH MCHC RDW Plt Count Add Manual Diff Total Counted Seg Neutrophils % Seg Neuts % (Manual) Band Neutrophils % Lymphocytes % (Manual) Monocytes % (Manual) Nucleated RBC % Seg Neutrophils # Man Band Neutrophils # Lymphocytes # (Manual) Abs React Lymphs (Man) Monocytes # (Manual) Eosinophils # (Manual) Basophils # (Manual) Metamyelocytes # Myelocytes # Promyelocytes # Blast Cells # WBC Morphology Hypersegmented Neuts Hyposegmented Neuts Hypogranular Neuts Smudge Cells Toxic Granulation Toxic Vacuolation Dohle Bodies Pelger-Huet Anomaly Maritza Rods Platelet Estimate Clumped Platelets Plt Clumps, EDTA Large Platelets Giant Platelets Platelet Satelliting Plt Morphology Comment RBC Morphology Dimorphic RBCs Polychromasia Hypochromasia Poikilocytosis Anisocytosis Microcytosis Macrocytosis Spherocytes Pappenheimer Bodies Sickle Cells Target Cells Tear Drop Cells Ovalocytes Helmet Cells Gautam-Lashmeet Bodies [place] Rings [place] Cells Bite Cells Crenated Cell Elliptocytes Acanthocytes (Spur) Rouleaux Hemoglobin C Crystals Schistocytes Malaria parasites Timoteo Bodies Hem Pathologist Commnt APTT Sodium Potassium Chloride Carbon Dioxide Anion Gap BUN Creatinine Estimated GFR BUN/Creatinine Ratio Glucose POC Glucose 90 Calcium Phosphorus Magnesium Total Bilirubin Direct Bilirubin Indirect Bilirubin AST ALT Alkaline Phosphatase Total Protein Albumin Albumin/Globulin Ratio Blood Type Antibody Screen Crossmatch Medications & Allergies - Medications Allergies/Adverse Reactions: Allergies Unable to Assess Allergy (Verified 03/08/21 14:37) AMS Active Medications: Generic Name Dose Route Start Last Admin Trade Name Freq PRN Reason Stop Dose Admin Acetaminophen 650 mg 03/08/21 21:36 Acetaminophen 325 Mg Tab PO Q4H PRN Pain MILD(1-3)/Fever >100.5/MYERS Hydrocodone Bitart/Acetaminophen 1 each 03/11/21 13:59 Hydrocodone/Acetaminophen 5-325 Mg Tab PO Q6H PRN Pain, Moderate (4-6) Albuterol 2.5 mg 03/15/21 19:28 03/16/21 21:45 Albuterol 2.5 Mg/3 Ml Nebu IH 2.5 mg Q4HRT PRN Administration Shortness Of Breath Lipase/Protease/Amylase 1 each 03/08/21 21:42 Lipase 10,500/Protease 25,000/Amylase 43,750 (Units) Dr Johnson FEEDTUBE PRN PRN For Clogged Feeding Tube Arformoterol Tartrate 15 mcg 03/10/21 20:00 03/18/21 09:07 Arformoterol 15 Mcg/2 Ml Nebu IH 15 mcg Q12HRT PRINCESS Administration Aspirin 81 mg 03/10/21 15:00 03/18/21 09:06 Aspirin 81 Mg Tab Chew PO 81 mg QDAY PRINCESS Administration Atorvastatin Calcium 40 mg 03/11/21 22:00 03/17/21 22:06 Atorvastatin 40 Mg Tab PO 40 mg QHS PRINCESS Administration Budesonide 0.5 mg 03/09/21 20:00 03/18/21 09:07 Budesonide 0.5 Mg/2 Ml Nebu IH 0.5 mg Q12HRT PRINCESS Administration Clopidogrel Bisulfate 75 mg 03/12/21 10:00 03/18/21 09:06 Clopidogrel 75 Mg Tab PO 75 mg QDAY PRINCESS Administration Dextrose 50 ml 03/17/21 20:20 Dextrose 50% In Water (25gm) 50 Ml Syringe IV Q30MIN PRN Hypoglycemia Protocol Haloperidol Lactate 5 mg 03/13/21 11:15 03/13/21 11:28 Haloperidol Lactate 5 Mg/1 Ml Inj IV 5 mg Q6H PRN Administration Agitation Dextrose 1,000 mls @ 42 mls/hr 03/15/21 16:00 03/17/21 13:25 D10w IV 42 mls/hr DIRECT PRINCESS Administration Magnesium Sulfate 2 gm in 50 mls @ 25 mls/hr 03/18/21 08:00 03/18/21 09:16 Magnesium Sulfate 2gm/50ml IV 03/18/21 09:59 25 mls/hr ONCE ONE Administration Sodium Phosphate 30 mmol/ 510 mls @ 125 mls/hr 03/18/21 08:00 03/18/21 09:11 Sodium Chloride IV 03/18/21 12:04 125 mls/hr ONCE ONE Administration Argatroban 250 mg/ Sodium 250 mls @ 1.527 mls/hr 03/18/21 08:00 03/18/21 09:02 Chloride IV 0.5 mcg/kg/min DIRECT PRINCESS 1.527 mls/hr Administration 0.5 MCG/KG/MIN Insulin Human Lispro 0 unit 03/10/21 12:00 03/18/21 06:08 Insulin Lispro 100 Unit/Ml SUB-Q Not Given Q6HR [facility] Protocol Metoclopramide HCl 10 mg 03/08/21 21:36 Metoclopramide 10 Mg/2 Ml Inj IV Q6H PRN Nausea And Vomiting Metoprolol Tartrate 5 mg 03/17/21 16:00 03/18/21 09:07 Metoprolol Tartrate 5 Mg/5 Ml Inj IV 5 mg Q6H PRINCESS Administration Morphine Sulfate 1 mg 03/14/21 17:07 03/16/21 09:35 Morphine 2 Mg/1 Ml Inj IV 1 mg Q4H PRN Administration Pain, Moderate (4-6) Nitroglycerin 0.4 mg 03/16/21 06:00 03/18/21 06:06 Nitroglycerin 0.4 Mg Patch 24hr TD 0.4 mg QDAY@0600 PRINCESS Administration Ondansetron HCl 4 mg 03/08/21 21:36 Ondansetron 4 Mg/2 Ml Inj IV Q3H PRN Nausea And Vomiting Pantoprazole Sodium 40 mg 03/13/21 13:00 03/18/21 09:06 Pantoprazole 40 Mg Inj IV 40 mg BID PRINCESS Administration Simple Syrup 15 ml 03/08/21 21:42 Simple Syrup 15 Ml FEEDTUBE PRN PRN Hypoglycemia Simple Syrup 30 ml 03/08/21 21:42 Simple Syrup 15 Ml FEEDTUBE PRN PRN Hypoglycemia Sodium Bicarbonate 325 mg 03/08/21 21:42 Sodium Bicarbonate 325 Mg Tab FEEDTUBE PRN PRN For Clogged Feeding Tube Sodium Chloride 10 ml 03/08/21 22:00 03/17/21 22:08 Sodium Chloride 0.9% 10 Ml Flush Syringe IV 10 ml BID PRINCESS Administration Sodium Chloride 10 ml 03/08/21 21:36 03/16/21 05:17 Sodium Chloride 0.9% 10 Ml Flush Syringe IV 10 ml PRN PRN Administration LINE FLUSH
--- NOTE | 2021-03-18 10:36 | Progress Note ---
Assessment and Plan - Patient Problems (1) Acute myocardial infarction Current Visit: Yes Status: Acute Plan to address problem: Patient admitted with acute pneumonia and COPD exacerbation, while hospitalized suffered an acute anterior myocardial infarction. Treated with cardiac catheterization and coronary stenting of the mid LAD. We will continue guideline directed medical therapy as tolerated. He has a persistent chronic anemia, we will watch his hemogram for possible bleeding on dual oral antiplatelet therapy. His prognosis is guarded. Subjective Date of service: 03/18/21 Principal diagnosis: Respiratory distress, IN, Pseudoaneurysm Interval history: Patient comfortable at the time of visit, no acute respiratory distress. teletypesetter monitor shows a normal sinus rhythm, with blood pressure of 147 systolic. Objective Vital Signs Temp Pulse Pulse Resp Resp BP Pulse Ox 03/18/21 09:09 98 03/18/21 09:08 84 20 03/18/21 09:07 88 141/70 03/18/21 06:31 85 16 181/78 98 03/18/21 06:06 86 149/72 03/18/21 06:01 84 20 149/72 99 03/18/21 05:31 83 17 139/63 100 03/18/21 05:01 85 18 170/65 100 03/18/21 04:31 85 17 143/68 100 03/18/21 04:15 96 H 140/74 03/18/21 04:01 89 18 135/66 96 03/18/21 04:00 85 21 98 03/18/21 03:47 98.9 F 03/18/21 03:30 93 H 19 137/62 97 03/18/21 03:00 96 H 25 H 199/79 97 03/18/21 02:30 93 H 21 181/69 97 03/18/21 02:01 90 20 183/81 98 03/18/21 01:31 87 18 103/58 98 03/18/21 01:00 87 14 152/55 97 03/18/21 00:31 91 H 22 151/63 98 03/18/21 00:01 149/110 98 03/18/21 00:00 91 H 21 98 03/17/21 23:31 88 20 151/54 94 03/17/21 23:00 87 20 159/65 98 03/17/21 22:30 84 19 159/61 96 03/17/21 22:07 98 H 178/70 03/17/21 22:00 96 H 21 178/70 85 03/17/21 21:31 100 H 28 H 187/83 99 03/17/21 21:17 98 H 22 03/17/21 21:01 95 H 22 176/68 99 03/17/21 20:38 97.7 F 03/17/21 20:30 88 22 165/69 97 03/17/21 20:01 90 22 184/66 100 03/17/21 20:00 92 H 21 98 03/17/21 19:57 98 03/17/21 19:31 93 H 21 174/55 99 03/17/21 19:00 92 H 19 159/57 99 03/17/21 18:31 90 19 118/95 100 03/17/21 18:01 89 20 170/126 100 03/17/21 17:30 93 H 23 178/66 99 03/17/21 17:01 91 H 22 172/67 100 03/17/21 16:30 91 H 27 H 154/71 100 03/17/21 16:15 102 H 182/77 03/17/21 16:10 104 H 25 H 181/68 99 03/17/21 16:01 105 H 21 182/56 98 03/17/21 16:00 105 H 21 98 03/17/21 15:51 105 H 22 181/68 97 03/17/21 15:31 106 H 22 204/74 99 03/17/21 15:01 105 H 23 192/70 100 03/17/21 14:31 100 H 26 H 187/61 96 03/17/21 14:00 102 H 26 H 178/124 96 03/17/21 13:30 95 H 24 184/70 99 03/17/21 13:09 92 H 185/57 03/17/21 13:00 93 H 21 185/57 100 03/17/21 12:31 88 24 169/67 99 03/17/21 12:17 99 F 92 H 22 180/69 98 03/17/21 12:10 99.3 F 91 H 19 170/57 99 03/17/21 12:00 98.6 F 93 H 21 172/62 99 03/17/21 11:39 97.9 F 93 H 18 149/58 99 03/17/21 11:31 91 H 20 149/58 100 03/17/21 11:17 93 H 23 150/54 100 03/17/21 11:16 98.4 F 03/17/21 11:11 92 H 27 H 128/56 99 03/17/21 11:02 98 F 03/17/21 11:00 91 H 25 H 128/56 98 03/17/21 10:51 91 H 22 154/64 98 03/17/21 10:41 91 H 19 154/59 100 - Physical Examination General: Other (Comfortable, no acute respiratory distress) HEENT: Positive: PERRL Neck: Positive: neck supple Cardiac: Positive: Reg Rate and Rhythm Lungs: Positive: Decreased Breath Sounds Neuro: Positive: Weakness Abdomen: Positive: Soft Skin: Positive: Clear Extremities: Absent: edema - Labs and Meds Cardiac Enzymes 03/18/21 Range/Units 05:00 AST 228 H (5-40) units/L Coagulation 03/17/21 Range/Units 10:13 APTT 63.2 H* (24.2-36.6) Sec. CBC 03/18/21 Range/Units 05:00 WBC 35.7 H (4.5-11.0) K/mm3 RBC 2.59 L (3.65-5.03) M/mm3 Hgb 7.9 L (11.8-15.2) gm/dl Hct 23.3 L (35.5-45.6) % Plt Count 79 L (140-440) K/mm3 Comprehensive Metabolic Panel 03/18/21 Range/Units 05:00 Sodium 142 (137-145) mmol/L Potassium 3.7 (3.6-5.0) mmol/L Chloride 97.0 L (98-107) mmol/L Carbon Dioxide 44 H* (22-30) mmol/L BUN 27 H (9-20) mg/dL Creatinine 1.1 (0.8-1.3) mg/dL Glucose 119 H (75-100) mg/dL Calcium 7.3 L (8.4-10.2) mg/dL Direct Bilirubin 0.3 H (0-0.2) mg/dL Indirect Bilirubin 0.7 mg/dL AST 228 H (5-40) units/L ALT 406 H (7-56) units/L Alkaline Phosphatase 41 (35-129) units/L Total Protein 4.8 L (6.3-8.2) g/dL Albumin 2.4 L (3.9-5) g/dL
--- NOTE | 2021-03-18 11:54 | Gastroenterology Progress Note ---
Assessment and Plan # Anemia # Suspected GI bleed - per nursing, noted to have black stool on 03/13/2021. Heparin drip was held. Drop H/H to 6 and received blood transfusion. Hgb stable at 8. - CT showing moderate right iliopsoas hematoma. - suspect possible upper GI bleed with PUD as well given report of black stools in the setting of anticoagulation. - report of black stool yesterday afternoon per nursing. - no BM overnight. No signs of active bleeding. - Rectal exam today with light brown stools. - Hgb responded to transfusion. rec - supportive care - cont with PPI IV - monitor H/H and for signs of bleeding. - patient currently on plavix and ASA for recent PCI for STEMI/cardiac arrest. No GI contraindication for DAPT given no signs of active GI bleeding. - will follow. No plans for endoscopy at this time given no signs of active ble eding. - discuss with Dr. Inman, ICU attending. - Patient Problems (1) Anemia Current Visit: Yes Status: Chronic Qualifiers: Anemia type: unspecified type Qualified Code(s): D64.9 - Anemia, unspecified Subjective Date of service: 03/18/21 Principal diagnosis: Respiratory distress, NC, Pseudoaneurysm Interval history: Per nursing, patient had black/greenish stool yesterday at 4 PM. No Bm overnight. Remains on venti mask. Objective - Constitutional Vitals: Temp Pulse Resp BP Pulse Ox 98.0 F 81 13 142/65 94 03/18/21 08:00 03/18/21 11:01 03/18/21 11:01 03/18/21 11:01 03/18/21 11:17 General appearance: no acute distress - EENT ENT: hearing intact - Respiratory Respiratory effort: normal - Cardiovascular Rhythm: regular Heart Sounds: Present: S1 & S2 - Gastrointestinal General gastrointestinal: Present: soft, non-tender, non-distended Rectal Exam: stool brown - Labs CBC & Chem 7: 03/18/21 05:00 03/18/21 05:00 Labs: Laboratory Results - last 24 hr 03/13/21 03/17/21 03/17/21 15:22 06:30 09:20 WBC RBC Hgb Hct MCV MCH MCHC RDW Plt Count Add Manual Diff Complete Total Counted 100 Seg Neutrophils % Seg Neuts % (Manual) 98.0 H Band Neutrophils % Lymphocytes % (Manual) 2.0 L Monocytes % (Manual) Nucleated RBC % Not Reportable Seg Neutrophils # Man 25.4 H Band Neutrophils # 0.0 Lymphocytes # (Manual) 0.5 L Abs React Lymphs (Man) 0.0 Monocytes # (Manual) 0.0 Eosinophils # (Manual) 0.0 Basophils # (Manual) 0.0 Metamyelocytes # 0.0 Myelocytes # 0.0 Promyelocytes # 85.9 Blast Cells # 0.0 WBC Morphology Not Reportable Hypersegmented Neuts Not Reportable Hyposegmented Neuts Not Reportable Hypogranular Neuts Not Reportable Smudge Cells Not Reportable Toxic Granulation Not Reportable Toxic Vacuolation Not Reportable Dohle Bodies Not Reportable Pelger-Huet Anomaly Not Reportable Maritza Rods Not Reportable Platelet Estimate Consistent w auto Clumped Platelets Not Reportable Plt Clumps, EDTA Not Reportable Large Platelets Not Reportable Giant Platelets Not Reportable Platelet Satelliting Not Reportable Plt Morphology Comment Not Reportable RBC Morphology Not Reportable Dimorphic RBCs Not Reportable Polychromasia Not Reportable Hypochromasia 2+ Poikilocytosis Not Reportable Anisocytosis Not Reportable Microcytosis Not Reportable Macrocytosis Few Spherocytes Not Reportable Pappenheimer Bodies Not Reportable Sickle Cells Not Reportable Target Cells Not Reportable Tear Drop Cells Not Reportable Ovalocytes Not Reportable Helmet Cells Not Reportable [place] Bodies Not Reportable [place] Rings Not Reportable [place] Cells Not Reportable Bite Cells Not Reportable Crenated Cell Not Reportable Elliptocytes Not Reportable Acanthocytes (Spur) Not Reportable Rouleaux Not Reportable Hemoglobin C Crystals Not Reportable Schistocytes Not Reportable Malaria parasites Not Reportable [place] Bodies Not Reportable Hem Pathologist Commnt No Sodium Potassium Chloride Carbon Dioxide Anion Gap BUN Creatinine Estimated GFR BUN/Creatinine Ratio Glucose POC Glucose Calcium Phosphorus Magnesium Total Bilirubin Direct Bilirubin Indirect Bilirubin AST ALT Alkaline Phosphatase Total Protein Albumin Albumin/Globulin Ratio Crossmatch See Detail See Detail 03/17/21 03/17/21 03/17/21 11:57 12:01 17:09 WBC RBC Hgb Hct MCV MCH MCHC RDW Plt Count Add Manual Diff Total Counted Seg Neutrophils % Seg Neuts % (Manual) Band Neutrophils % Lymphocytes % (Manual) Monocytes % (Manual) Nucleated RBC % Seg Neutrophils # Man Band Neutrophils # Lymphocytes # (Manual) Abs React Lymphs (Man) Monocytes # (Manual) Eosinophils # (Manual) Basophils # (Manual) Metamyelocytes # Myelocytes # Promyelocytes # Blast Cells # WBC Morphology Hypersegmented Neuts Hyposegmented Neuts Hypogranular Neuts Smudge Cells Toxic Granulation Toxic Vacuolation Dohle Bodies Pelger-Huet Anomaly Maritza Rods Platelet Estimate Clumped Platelets Plt Clumps, EDTA Large Platelets Giant Platelets Platelet Satelliting Plt Morphology Comment RBC Morphology Dimorphic RBCs Polychromasia Hypochromasia Poikilocytosis Anisocytosis Microcytosis Macrocytosis Spherocytes Pappenheimer Bodies Sickle Cells Target Cells Tear Drop Cells Ovalocytes Helmet Cells [place] Bodies [place] Rings [place] Cells Bite Cells Crenated Cell Elliptocytes Acanthocytes (Spur) Rouleaux Hemoglobin C Crystals Schistocytes Malaria parasites [place] Bodies Hem Pathologist Commnt Sodium Potassium Chloride Carbon Dioxide Anion Gap BUN Creatinine Estimated GFR BUN/Creatinine Ratio Glucose POC Glucose 48 L 159 H 68 L Calcium Phosphorus Magnesium Total Bilirubin Direct Bilirubin Indirect Bilirubin AST ALT Alkaline Phosphatase Total Protein Albumin Albumin/Globulin Ratio Crossmatch 03/17/21 03/17/21 03/17/21 18:23 18:26 23:38 WBC RBC Hgb Hct MCV MCH MCHC RDW Plt Count Add Manual Diff Total Counted Seg Neutrophils % Seg Neuts % (Manual) Band Neutrophils % Lymphocytes % (Manual) Monocytes % (Manual) Nucleated RBC % Seg Neutrophils # Man Band Neutrophils # Lymphocytes # (Manual) Abs React Lymphs (Man) Monocytes # (Manual) Eosinophils # (Manual) Basophils # (Manual) Metamyelocytes # Myelocytes # Promyelocytes # Blast Cells # WBC Morphology Hypersegmented Neuts Hyposegmented Neuts Hypogranular Neuts Smudge Cells Toxic Granulation Toxic Vacuolation Dohle Bodies Pelger-Huet Anomaly Maritza Rods Platelet Estimate Clumped Platelets Plt Clumps, EDTA Large Platelets Giant Platelets Platelet Satelliting Plt Morphology Comment RBC Morphology Dimorphic RBCs Polychromasia Hypochromasia Poikilocytosis Anisocytosis Microcytosis Macrocytosis Spherocytes Pappenheimer Bodies Sickle Cells Target Cells Tear Drop Cells Ovalocytes Helmet Cells [place] Bodies [place] Rings [place] Cells Bite Cells Crenated Cell Elliptocytes Acanthocytes (Spur) Rouleaux Hemoglobin C Crystals Schistocytes Malaria parasites [place] Bodies Hem Pathologist Commnt Sodium Potassium Chloride Carbon Dioxide Anion Gap BUN Creatinine Estimated GFR BUN/Creatinine Ratio Glucose POC Glucose 60 L 60 L 80 Calcium Phosphorus Magnesium Total Bilirubin Direct Bilirubin Indirect Bilirubin AST ALT Alkaline Phosphatase Total Protein Albumin Albumin/Globulin Ratio Crossmatch 03/18/21 03/18/21 03/18/21 05:00 05:00 05:53 WBC 35.7 H RBC 2.59 L Hgb 7.9 L Hct 23.3 L MCV 90 MCH 30 MCHC 34 RDW 16.6 H Plt Count 79 L Add Manual Diff Complete Total Counted 100 Seg Neutrophils % [employer] Seg Neuts % (Manual) 93.0 H Band Neutrophils % 5.0 Lymphocytes % (Manual) Monocytes % (Manual) 2.0 Nucleated RBC % Not Reportable Seg Neutrophils # Man 33.2 H Band Neutrophils # 1.8 Lymphocytes # (Manual) 0.0 L Abs React Lymphs (Man) 0.0 Monocytes # (Manual) 0.7 Eosinophils # (Manual) 0.0 Basophils # (Manual) 0.0 Metamyelocytes # 0.0 Myelocytes # 0.0 Promyelocytes # 0.0 Blast Cells # 0.0 WBC Morphology Hypersegmented Neuts Not Reportable Hyposegmented Neuts Not Reportable Hypogranular Neuts Not Reportable Smudge Cells Not Reportable Toxic Granulation Not Reportable Toxic Vacuolation Not Reportable Dohle Bodies Not Reportable Pelger-Huet Anomaly Not Reportable Maritza Rods Not Reportable Platelet Estimate Consistent w auto Clumped Platelets Not Reportable Plt Clumps, EDTA Not Reportable Large Platelets Not Reportable Giant Platelets Not Reportable Platelet Satelliting Not Reportable Plt Morphology Comment Not Reportable RBC Morphology Not Reportable Dimorphic RBCs Not Reportable Polychromasia Not Reportable Hypochromasia Not Reportable Poikilocytosis Not Reportable Anisocytosis Few Microcytosis Not Reportable Macrocytosis Not Reportable Spherocytes Not Reportable Pappenheimer Bodies Not Reportable Sickle Cells Not Reportable Target Cells Not Reportable Tear Drop Cells Not Reportable Ovalocytes Not Reportable Helmet Cells Not Reportable [place] Bodies Not Reportable [place] Rings Not Reportable [place] Cells Not Reportable Bite Cells Not Reportable Crenated Cell Not Reportable Elliptocytes Not Reportable Acanthocytes (Spur) Not Reportable Rouleaux Not Reportable Hemoglobin C Crystals Not Reportable Schistocytes Not Reportable Malaria parasites Not Reportable [place] Bodies Not Reportable Hem Pathologist Commnt Sent to pathology Sodium 142 Potassium 3.7 Chloride 97.0 L Carbon Dioxide 44 H* Anion Gap 5 BUN 27 H Creatinine 1.1 Estimated GFR > 60 BUN/Creatinine Ratio 25 Glucose 119 H POC Glucose 90 Calcium 7.3 L Phosphorus 1.90 L Magnesium 1.60 L Total Bilirubin 1.00 Direct Bilirubin 0.3 H Indirect Bilirubin 0.7 AST 228 H ALT 406 H Alkaline Phosphatase 41 Total Protein 4.8 L Albumin 2.4 L Albumin/Globulin Ratio 1.0 Crossmatch
--- NOTE | 2021-03-18 11:59 | Progress Note ---
Assessment and Plan 65 y/o male with acute respiratory, exact etiology unknown 03/18/21: Spoke with Heme over the phone, agree with current plan in regards to the lowest dose of argatroban. I have increased the frequency of H/H checks to q6 and plan is if the HgB drops more than 2 points to stop the anticoagulation. He is also not eating, so he is currently on D10. Will attempt to place dobb- josep and tube feeds. Continue q4 hour FSBS to make sure severe hypoglycemia does not occur. Wean FiO2 for sats >88%. Continue pulmicort and brovana therapy. May need nicotine patch. 03/13/21: Clinically appears stable. HgB is down to 9.1, came in at 13 but this may heme concentrated. Appears stable for transfer]. Medical therapy for CAD. Will change steroids to 40q8 03/12/21: Clinically appears stable. Will discuss with cards but I feel patient is stable for step down vs tele. Likely no tele beds available but could down grade and keep in unit. Will discuss and make a decision later today. 03/11/21: Follow up cath results. Monitor volume status. Maintain potassium of 4 and mag of 2. monitor renal function. Goal directed medical therapy. Wean FiO2 for sats >88% down to baseline of 2 liters NC. Will continue to follow. Smoking cessation. 03/10/21: Sedation stopped and now discontinued from OCT. Suspect that when patient starts waking up he can be extubated, no matter what time this is, even if it is the shift manager. The repeat EKG still shows some ST elevation in V3 but T waves have inverted V4, V5 and V6. Per the tech, the tech from yesterday did an EKG off the wrong order but the EKG showing ST elevations was not shown to a physician. Will order Troponin now and obtain 2D echo once COVID results are back. At this point, pending these labs will determine cardiology consult. As stated before, hemodynamically the patient is stable. Tech needs order for EKG but as I explained, not able to back date an order and there was not an order for that EKG to begin with. Very difficult case in regards to EKG. Will speak with risk about this. 1. Continue supportive measures 2. CXR is stable and IJ in good position 3. Per Nurse, patient has COPD and chronic respiratory failure and is still smoking. Guarded prognosis Subjective Date of service: 03/18/21 Principal diagnosis: Respiratory distress, OK, Pseudoaneurysm Interval history: No acute events overnight. Did have a large black BM on yesterday but none since then. H/H stable this am Post transfusion on yesterday. Argatroban restarted this am. Still on Venti mask. Objective Vital Signs - 12hr 03/18/21 03/18/21 03/18/21 00:00 00:01 00:31 Temperature Pulse Rate 91 H 91 H Pulse Rate [ Bilateral Throughout] Respiratory 21 22 Rate Respiratory Rate [Bilateral Throughout] Blood Pressure 149/110 151/63 O2 Sat by Pulse 98 98 98 Oximetry 03/18/21 03/18/21 03/18/21 01:00 01:31 02:01 Temperature Pulse Rate 87 87 90 Pulse Rate [ Bilateral Throughout] Respiratory 14 18 20 Rate Respiratory Rate [Bilateral Throughout] Blood Pressure 152/55 103/58 183/81 O2 Sat by Pulse 97 98 98 Oximetry 03/18/21 03/18/21 03/18/21 02:30 03:00 03:30 Temperature Pulse Rate 93 H 96 H 93 H Pulse Rate [ Bilateral Throughout] Respiratory 21 25 H 19 Rate Respiratory Rate [Bilateral Throughout] Blood Pressure 181/69 199/79 137/62 O2 Sat by Pulse 97 97 97 Oximetry 03/18/21 03/18/21 03/18/21 03:47 04:00 04:01 Temperature 98.9 F Pulse Rate 85 89 Pulse Rate [ Bilateral Throughout] Respiratory 21 18 Rate Respiratory Rate [Bilateral Throughout] Blood Pressure 135/66 O2 Sat by Pulse 98 96 Oximetry 03/18/21 03/18/21 03/18/21 04:15 04:31 05:01 Temperature Pulse Rate 96 H 85 85 Pulse Rate [ Bilateral Throughout] Respiratory 17 18 Rate Respiratory Rate [Bilateral Throughout] Blood Pressure 140/74 143/68 170/65 O2 Sat by Pulse 100 100 Oximetry 03/18/21 03/18/21 03/18/21 05:31 06:01 06:06 Temperature Pulse Rate 83 84 86 Pulse Rate [ Bilateral Throughout] Respiratory 17 20 Rate Respiratory Rate [Bilateral Throughout] Blood Pressure 139/63 149/72 149/72 O2 Sat by Pulse 100 99 Oximetry 03/18/21 03/18/21 03/18/21 06:31 07:00 07:30 Temperature Pulse Rate 85 85 91 H Pulse Rate [ Bilateral Throughout] Respiratory 16 16 14 Rate Respiratory Rate [Bilateral Throughout] Blood Pressure 181/78 170/80 180/90 O2 Sat by Pulse 98 100 98 Oximetry 03/18/21 03/18/21 03/18/21 08:00 08:01 08:30 Temperature 98.0 F Pulse Rate 91 H 92 H 86 Pulse Rate [ Bilateral Throughout] Respiratory 12 12 17 Rate Respiratory Rate [Bilateral Throughout] Blood Pressure 187/77 169/80 O2 Sat by Pulse 100 100 99 Oximetry 03/18/21 03/18/21 03/18/21 09:01 09:07 09:08 Temperature Pulse Rate 88 88 Pulse Rate [ 84 Bilateral Throughout] Respiratory 14 Rate Respiratory 20 Rate [Bilateral Throughout] Blood Pressure 141/70 141/70 O2 Sat by Pulse 99 Oximetry 03/18/21 03/18/21 03/18/21 09:09 09:30 10:00 Temperature Pulse Rate 89 Pulse Rate [ Bilateral Throughout] Respiratory 17 Rate Respiratory Rate [Bilateral Throughout] Blood Pressure 166/70 147/64 O2 Sat by Pulse 98 99 97 Oximetry 03/18/21 03/18/21 03/18/21 10:31 11:01 11:17 Temperature Pulse Rate 81 Pulse Rate [ Bilateral Throughout] Respiratory 13 Rate Respiratory Rate [Bilateral Throughout] Blood Pressure 156/57 142/65 O2 Sat by Pulse 96 97 94 Oximetry Constitutional: lethargic, other (but arousable) Eyes: non-icteric ENT: other (orally intubated and sedated.) Neck: supple Effort: normal Ascultation: Bilateral: diminished breath sounds Cardiovascular: regular rate and rhythm Gastrointestinal: normoactive bowel sounds, soft Extremities: no edema, pink and warm Neurologic: unable to assess CBC and BMP: 03/18/21 05:00 03/18/21 05:00 ABG, PT/INR, D-dimer: ABG ABG pH 7.389 (7.320-7.450) 03/17/21 00:35 POC ABG pCO2 69.0 mmHg (32.0-48.0) H 03/17/21 00:35 ABG pCO2 43.0 mm Hg 03/08/21 15:12 POC ABG pO2 84.0 mmHg (83-108) 03/17/21 00:35 ABG pO2 381.9 mm Hg (80.0-90.0) H 03/08/21 15:12 POC ABG HCO3 40.7 03/17/21 00:35 ABG O2 Saturation 95.3 (0-100) 03/17/21 00:35 PT/INR, D-dimer PT 14.6 Sec. (12.2-14.9) 03/11/21 21:50 INR 1.09 (0.87-1.13) 03/11/21 21:50 D-Dimer 832.06 ng/mlDDU (0-234) H 03/08/21 15:49 Abnormal lab findings: Abnormal Labs 03/08/21 03/08/21 03/08/21 15:12 15:49 15:49 WBC RBC Hgb Hct MCV 95 H RDW 12.8 L Plt Count Lymph % (Auto) 5.1 L [place] % (Auto) 8.6 H Lymph # (Auto) 0.4 L [place] # (Auto) Seg Neutrophils % 86.1 H Seg Neuts % (Manual) Lymphocytes % (Manual) Seg Neutrophils # Seg Neutrophils # Man Lymphocytes # (Manual) APTT 37.1 H D-Dimer 832.06 H ABG pH 7.478 H POC ABG pCO2 POC ABG pO2 ABG pO2 381.9 H ABG HCO3 31.2 H ABG O2 Saturation 99.6 H ABG Base Excess 6.9 H ABG Hemoglobin 13.0 L ABG Oxyhemoglobin ABG Sodium ABG Potassium ABG Chloride ABG Glucose Carboxyhemoglobin Sodium Potassium Chloride Carbon Dioxide BUN Creatinine Glucose POC Glucose Lactic Acid Calcium Phosphorus Magnesium Ferritin Direct Bilirubin AST ALT Ammonia Lactate Dehydrogenase Total Creatine Kinase CK-MB (CK-2) CK-MB (CK-2) Rel Index Troponin T C-Reactive Protein Total Protein Albumin Prealbumin Triglycerides HDL Cholesterol Arterial Blood Glucose Arterial Blood Ionized Calcium Acetaminophen Crossmatch 03/08/21 03/08/21 03/08/21 15:49 15:49 15:49 WBC RBC Hgb Hct MCV RDW Plt Count Lymph % (Auto) [place] % (Auto) Lymph # (Auto) [place] # (Auto) Seg Neutrophils % Seg Neuts % (Manual) Lymphocytes % (Manual) Seg Neutrophils # Seg Neutrophils # Man Lymphocytes # (Manual) APTT D-Dimer ABG pH POC ABG pCO2 POC ABG pO2 ABG pO2 ABG HCO3 ABG O2 Saturation ABG Base Excess ABG Hemoglobin ABG Oxyhemoglobin ABG Sodium ABG Potassium ABG Chloride ABG Glucose Carboxyhemoglobin Sodium 134 L Potassium Chloride 89.7 L Carbon Dioxide 32 H BUN 47 H Creatinine Glucose 150 H POC Glucose Lactic Acid Calcium Phosphorus Magnesium Ferritin Direct Bilirubin AST ALT Ammonia 22.0 L Lactate Dehydrogenase Total Creatine Kinase 52 L CK-MB (CK-2) CK-MB (CK-2) Rel Index Troponin T C-Reactive Protein Total Protein Albumin 3.2 L Prealbumin Triglycerides HDL Cholesterol Arterial Blood Glucose Arterial Blood Ionized Calcium Acetaminophen Crossmatch 03/08/21 03/08/21 03/08/21 15:49 15:49 15:49 WBC RBC Hgb Hct MCV RDW Plt Count Lymph % (Auto) [place] % (Auto) Lymph # (Auto) [place] # (Auto) Seg Neutrophils % Seg Neuts % (Manual) Lymphocytes % (Manual) Seg Neutrophils # Seg Neutrophils # Man Lymphocytes # (Manual) APTT D-Dimer ABG pH POC ABG pCO2 POC ABG pO2 ABG pO2 ABG HCO3 ABG O2 Saturation ABG Base Excess ABG Hemoglobin ABG Oxyhemoglobin ABG Sodium ABG Potassium ABG Chloride ABG Glucose Carboxyhemoglobin Sodium Potassium Chloride Carbon Dioxide BUN Creatinine Glucose 150 H POC Glucose Lactic Acid 3.40 H* Calcium Phosphorus Magnesium Ferritin Direct Bilirubin AST ALT Ammonia Lactate Dehydrogenase 209 H Total Creatine Kinase CK-MB (CK-2) CK-MB (CK-2) Rel Index Troponin T C-Reactive Protein 24.00 H Total Protein Albumin Prealbumin Triglycerides HDL Cholesterol Arterial Blood Glucose Arterial Blood Ionized Calcium Acetaminophen 5.0 L Crossmatch 03/08/21 03/08/21 03/09/21 15:49 23:27 00:00 WBC RBC Hgb Hct MCV RDW Plt Count Lymph % (Auto) [place] % (Auto) Lymph # (Auto) [place] # (Auto) Seg Neutrophils % Seg Neuts % (Manual) Lymphocytes % (Manual) Seg Neutrophils # Seg Neutrophils # Man Lymphocytes # (Manual) APTT D-Dimer ABG pH POC ABG pCO2 POC ABG pO2 ABG pO2 ABG HCO3 ABG O2 Saturation ABG Base Excess ABG Hemoglobin ABG Oxyhemoglobin ABG Sodium ABG Potassium ABG Chloride ABG Glucose Carboxyhemoglobin Sodium Potassium Chloride Carbon Dioxide BUN Creatinine Glucose POC Glucose 185 H Lactic Acid Calcium Phosphorus Magnesium Ferritin 1373.0 H Direct Bilirubin AST ALT Ammonia Lactate Dehydrogenase Total Creatine Kinase CK-MB (CK-2) CK-MB (CK-2) Rel Index Troponin T C-Reactive Protein Total Protein Albumin Prealbumin 0.058 L Triglycerides HDL Cholesterol Arterial Blood Glucose Arterial Blood Ionized Calcium Acetaminophen Crossmatch 03/09/21 03/09/21 03/09/21 05:11 06:18 06:18 WBC RBC 3.50 L Hgb 10.8 L Hct 32.8 L D MCV RDW 13.1 L Plt Count 111 L Lymph % (Auto) 9.9 L [place] % (Auto) 9.2 H Lymph # (Auto) 0.5 L [place] # (Auto) Seg Neutrophils % 80.4 H Seg Neuts % (Manual) Lymphocytes % (Manual) Seg Neutrophils # Seg Neutrophils # Man Lymphocytes # (Manual) APTT D-Dimer ABG pH POC ABG pCO2 POC ABG pO2 ABG pO2 ABG HCO3 ABG O2 Saturation ABG Base Excess ABG Hemoglobin ABG Oxyhemoglobin ABG Sodium ABG Potassium ABG Chloride ABG Glucose Carboxyhemoglobin Sodium 135 L Potassium 5.3 H Chloride Carbon Dioxide BUN 46 H Creatinine Glucose 178 H POC Glucose 183 H Lactic Acid Calcium 8.2 L Phosphorus Magnesium Ferritin Direct Bilirubin AST ALT Ammonia Lactate Dehydrogenase Total Creatine Kinase CK-MB (CK-2) CK-MB (CK-2) Rel Index Troponin T C-Reactive Protein Total Protein 6.1 L Albumin 2.4 L Prealbumin Triglycerides HDL Cholesterol Arterial Blood Glucose Arterial Blood Ionized Calcium Acetaminophen Crossmatch 03/09/21 03/09/21 03/09/21 07:40 11:39 18:09 WBC RBC Hgb Hct MCV RDW Plt Count Lymph % (Auto) [place] % (Auto) Lymph # (Auto) [place] # (Auto) Seg Neutrophils % Seg Neuts % (Manual) Lymphocytes % (Manual) Seg Neutrophils # Seg Neutrophils # Man Lymphocytes # (Manual) APTT D-Dimer ABG pH 7.485 H POC ABG pCO2 POC ABG pO2 179.1 H ABG pO2 ABG HCO3 ABG O2 Saturation ABG Base Excess ABG Hemoglobin 10.8 L ABG Oxyhemoglobin 99.1 H ABG Sodium 133.2 L ABG Potassium ABG Chloride ABG Glucose 175 H Carboxyhemoglobin 0 L Sodium Potassium Chloride Carbon Dioxide BUN Creatinine Glucose POC Glucose 165 H 167 H Lactic Acid Calcium Phosphorus Magnesium Ferritin Direct Bilirubin AST ALT Ammonia Lactate Dehydrogenase Total Creatine Kinase CK-MB (CK-2) CK-MB (CK-2) Rel Index Troponin T C-Reactive Protein Total Protein Albumin Prealbumin Triglycerides HDL Cholesterol Arterial Blood Glucose 175 H Arterial Blood Ionized Calcium 4.3 L Acetaminophen Crossmatch 03/09/21 03/10/21 03/10/21 23:53 02:59 05:14 WBC 12.0 H RBC Hgb 11.7 L Hct MCV 95 H RDW Plt Count Lymph % (Auto) 2.6 L [place] % (Auto) 7.5 H Lymph # (Auto) 0.3 L [place] # (Auto) 0.9 H Seg Neutrophils % 89.8 H Seg Neuts % (Manual) Lymphocytes % (Manual) Seg Neutrophils # 10.8 H Seg Neutrophils # Man Lymphocytes # (Manual) APTT D-Dimer ABG pH POC ABG pCO2 POC ABG pO2 ABG pO2 ABG HCO3 ABG O2 Saturation ABG Base Excess ABG Hemoglobin 11.9 L ABG Oxyhemoglobin ABG Sodium ABG Potassium ABG Chloride 108.0 H ABG Glucose 232 H Carboxyhemoglobin 0.3 L Sodium Potassium Chloride Carbon Dioxide BUN Creatinine Glucose POC Glucose 210 H Lactic Acid Calcium Phosphorus Magnesium Ferritin Direct Bilirubin AST ALT Ammonia Lactate Dehydrogenase Total Creatine Kinase CK-MB (CK-2) CK-MB (CK-2) Rel Index Troponin T C-Reactive Protein Total Protein Albumin Prealbumin Triglycerides HDL Cholesterol Arterial Blood Glucose 232 H Arterial Blood Ionized Calcium 4.4 L Acetaminophen Crossmatch 03/10/21 03/10/21 03/10/21 05:14 05:14 05:14 WBC RBC Hgb Hct MCV RDW Plt Count Lymph % (Auto) [place] % (Auto) Lymph # (Auto) [place] # (Auto) Seg Neutrophils % Seg Neuts % (Manual) Lymphocytes % (Manual) Seg Neutrophils # Seg Neutrophils # Man Lymphocytes # (Manual) APTT D-Dimer ABG pH POC ABG pCO2 POC ABG pO2 ABG pO2 ABG HCO3 ABG O2 Saturation ABG Base Excess ABG Hemoglobin ABG Oxyhemoglobin ABG Sodium ABG Potassium ABG Chloride ABG Glucose Carboxyhemoglobin Sodium Potassium Chloride 107.2 H Carbon Dioxide BUN 48 H Creatinine Glucose 218 H POC Glucose Lactic Acid Calcium 7.9 L Phosphorus Magnesium Ferritin Direct Bilirubin AST 41 H ALT Ammonia Lactate Dehydrogenase Total Creatine Kinase CK-MB (CK-2) 17.8 H CK-MB (CK-2) Rel Index 18.1 H Troponin T 0.798 H* C-Reactive Protein Total Protein 5.7 L Albumin 2.7 L Prealbumin Triglycerides 173 H HDL Cholesterol 36 L Arterial Blood Glucose Arterial Blood Ionized Calcium Acetaminophen Crossmatch 03/10/21 03/10/21 03/10/21 05:35 11:43 18:17 WBC RBC Hgb Hct MCV RDW Plt Count Lymph % (Auto) [place] % (Auto) Lymph # (Auto) [place] # (Auto) Seg Neutrophils % Seg Neuts % (Manual) Lymphocytes % (Manual) Seg Neutrophils # Seg Neutrophils # Man Lymphocytes # (Manual) APTT D-Dimer ABG pH POC ABG pCO2 POC ABG pO2 ABG pO2 ABG HCO3 ABG O2 Saturation ABG Base Excess ABG Hemoglobin ABG Oxyhemoglobin ABG Sodium ABG Potassium ABG Chloride ABG Glucose Carboxyhemoglobin Sodium Potassium Chloride Carbon Dioxide BUN Creatinine Glucose POC Glucose 210 H 221 H 120 H Lactic Acid Calcium Phosphorus Magnesium Ferritin Direct Bilirubin AST ALT Ammonia Lactate Dehydrogenase Total Creatine Kinase CK-MB (CK-2) CK-MB (CK-2) Rel Index Troponin T C-Reactive Protein Total Protein Albumin Prealbumin Triglycerides HDL Cholesterol Arterial Blood Glucose Arterial Blood Ionized Calcium Acetaminophen Crossmatch 03/10/21 03/11/21 03/11/21 18:40 00:44 08:00 WBC RBC Hgb Hct MCV RDW Plt Count Lymph % (Auto) [place] % (Auto) Lymph # (Auto) [place] # (Auto) Seg Neutrophils % Seg Neuts % (Manual) Lymphocytes % (Manual) Seg Neutrophils # Seg Neutrophils # Man Lymphocytes # (Manual) APTT D-Dimer ABG pH POC ABG pCO2 POC ABG pO2 ABG pO2 ABG HCO3 ABG O2 Saturation ABG Base Excess ABG Hemoglobin ABG Oxyhemoglobin ABG Sodium ABG Potassium ABG Chloride ABG Glucose Carboxyhemoglobin Sodium Potassium Chloride Carbon Dioxide BUN Creatinine Glucose POC Glucose Lactic Acid Calcium Phosphorus Magnesium Ferritin Direct Bilirubin AST ALT Ammonia Lactate Dehydrogenase Total Creatine Kinase CK-MB (CK-2) CK-MB (CK-2) Rel Index Troponin T 0.477 H* D 0.430 H* 0.363 H* C-Reactive Protein Total Protein Albumin Prealbumin Triglycerides HDL Cholesterol Arterial Blood Glucose Arterial Blood Ionized Calcium Acetaminophen Crossmatch 03/11/21 03/11/21 03/11/21 08:00 08:00 11:26 WBC 14.7 H RBC 3.62 L Hgb 11.3 L Hct 34.4 L MCV 95 H RDW Plt Count Lymph % (Auto) [place] % (Auto) Lymph # (Auto) [place] # (Auto) Seg Neutrophils % Seg Neuts % (Manual) Lymphocytes % (Manual) Seg Neutrophils # Seg Neutrophils # Man Lymphocytes # (Manual) APTT D-Dimer ABG pH POC ABG pCO2 POC ABG pO2 ABG pO2 ABG HCO3 ABG O2 Saturation ABG Base Excess ABG Hemoglobin ABG Oxyhemoglobin ABG Sodium ABG Potassium ABG Chloride ABG Glucose Carboxyhemoglobin Sodium Potassium Chloride Carbon Dioxide BUN 34 H Creatinine Glucose 167 H POC Glucose 157 H Lactic Acid Calcium Phosphorus 2.40 L Magnesium 2.40 H Ferritin Direct Bilirubin AST ALT Ammonia Lactate Dehydrogenase Total Creatine Kinase CK-MB (CK-2) CK-MB (CK-2) Rel Index Troponin T C-Reactive Protein Total Protein 6.1 L Albumin 2.7 L Prealbumin Triglycerides HDL Cholesterol Arterial Blood Glucose Arterial Blood Ionized Calcium Acetaminophen Crossmatch 03/11/21 03/11/21 03/12/21 17:31 21:50 03:05 WBC RBC Hgb 10.7 L Hct 33.6 L MCV RDW Plt Count Lymph % (Auto) [place] % (Auto) Lymph # (Auto) [place] # (Auto) Seg Neutrophils % Seg Neuts % (Manual) Lymphocytes % (Manual) Seg Neutrophils # Seg Neutrophils # Man Lymphocytes # (Manual) APTT D-Dimer ABG pH POC ABG pCO2 POC ABG pO2 ABG pO2 ABG HCO3 ABG O2 Saturation ABG Base Excess ABG Hemoglobin ABG Oxyhemoglobin ABG Sodium ABG Potassium ABG Chloride ABG Glucose Carboxyhemoglobin Sodium Potassium Chloride Carbon Dioxide BUN Creatinine Glucose POC Glucose 154 H 139 H Lactic Acid Calcium Phosphorus Magnesium Ferritin Direct Bilirubin AST ALT Ammonia Lactate Dehydrogenase Total Creatine Kinase CK-MB (CK-2) CK-MB (CK-2) Rel Index Troponin T C-Reactive Protein Total Protein Albumin Prealbumin Triglycerides HDL Cholesterol Arterial Blood Glucose Arterial Blood Ionized Calcium Acetaminophen Crossmatch 03/12/21 03/12/21 03/12/21 04:40 04:40 06:03 WBC 11.6 H RBC 3.28 L Hgb 10.3 L Hct 31.3 L MCV 96 H RDW Plt Count Lymph % (Auto) [place] % (Auto) Lymph # (Auto) [place] # (Auto) Seg Neutrophils % Seg Neuts % (Manual) 92.0 H Lymphocytes % (Manual) 3.0 L Seg Neutrophils # Seg Neutrophils # Man 10.7 H Lymphocytes # (Manual) 0.3 L APTT D-Dimer ABG pH POC ABG pCO2 POC ABG pO2 ABG pO2 ABG HCO3 ABG O2 Saturation ABG Base Excess ABG Hemoglobin ABG Oxyhemoglobin ABG Sodium ABG Potassium ABG Chloride ABG Glucose Carboxyhemoglobin Sodium Potassium Chloride 108.7 H Carbon Dioxide BUN 28 H Creatinine Glucose 137 H POC Glucose 137 H Lactic Acid Calcium 8.2 L Phosphorus Magnesium Ferritin Direct Bilirubin AST ALT Ammonia Lactate Dehydrogenase Total Creatine Kinase CK-MB (CK-2) CK-MB (CK-2) Rel Index Troponin T 0.261 H* D C-Reactive Protein Total Protein Albumin Prealbumin Triglycerides HDL Cholesterol Arterial Blood Glucose Arterial Blood Ionized Calcium Acetaminophen Crossmatch 03/12/21 03/12/21 03/13/21 14:17 17:28 04:09 WBC RBC Hgb 9.1 L Hct 27.7 L MCV RDW Plt Count Lymph % (Auto) [place] % (Auto) Lymph # (Auto) [place] # (Auto) Seg Neutrophils % Seg Neuts % (Manual) Lymphocytes % (Manual) Seg Neutrophils # Seg Neutrophils # Man Lymphocytes # (Manual) APTT D-Dimer ABG pH POC ABG pCO2 POC ABG pO2 ABG pO2 ABG HCO3 ABG O2 Saturation ABG Base Excess ABG Hemoglobin ABG Oxyhemoglobin ABG Sodium ABG Potassium ABG Chloride ABG Glucose Carboxyhemoglobin Sodium Potassium Chloride Carbon Dioxide BUN Creatinine Glucose POC Glucose 165 H 111 H Lactic Acid Calcium Phosphorus Magnesium Ferritin Direct Bilirubin AST ALT Ammonia Lactate Dehydrogenase Total Creatine Kinase CK-MB (CK-2) CK-MB (CK-2) Rel Index Troponin T C-Reactive Protein Total Protein Albumin Prealbumin Triglycerides HDL Cholesterol Arterial Blood Glucose Arterial Blood Ionized Calcium Acetaminophen Crossmatch 03/13/21 03/13/21 03/13/21 05:04 11:28 14:25 WBC RBC Hgb 6.7 L Hct 19.7 L* D MCV RDW Plt Count Lymph % (Auto) [place] % (Auto) Lymph # (Auto) [place] # (Auto) Seg Neutrophils % Seg Neuts % (Manual) Lymphocytes % (Manual) Seg Neutrophils # Seg Neutrophils # Man Lymphocytes # (Manual) APTT D-Dimer ABG pH POC ABG pCO2 POC ABG pO2 ABG pO2 ABG HCO3 ABG O2 Saturation ABG Base Excess ABG Hemoglobin ABG Oxyhemoglobin ABG Sodium ABG Potassium ABG Chloride ABG Glucose Carboxyhemoglobin Sodium Potassium Chloride Carbon Dioxide BUN Creatinine Glucose POC Glucose 113 H 148 H Lactic Acid Calcium Phosphorus Magnesium Ferritin Direct Bilirubin AST ALT Ammonia Lactate Dehydrogenase Total Creatine Kinase CK-MB (CK-2) CK-MB (CK-2) Rel Index Troponin T C-Reactive Protein Total Protein Albumin Prealbumin Triglycerides HDL Cholesterol Arterial Blood Glucose Arterial Blood Ionized Calcium Acetaminophen Crossmatch 03/13/21 03/13/21 03/13/21 15:22 17:25 19:16 WBC RBC Hgb Hct MCV RDW Plt Count Lymph % (Auto) [place] % (Auto) Lymph # (Auto) [place] # (Auto) Seg Neutrophils % Seg Neuts % (Manual) Lymphocytes % (Manual) Seg Neutrophils # Seg Neutrophils # Man Lymphocytes # (Manual) APTT D-Dimer ABG pH 7.174 L POC ABG pCO2 POC ABG pO2 78.7 L ABG pO2 ABG HCO3 ABG O2 Saturation ABG Base Excess ABG Hemoglobin 5.5 L ABG Oxyhemoglobin 88.8 L ABG Sodium 135.1 L ABG Potassium 5.2 H ABG Chloride 109.0 H ABG Glucose 96 H Carboxyhemoglobin Sodium Potassium Chloride Carbon Dioxide BUN Creatinine Glucose POC Glucose 47 L Lactic Acid Calcium Phosphorus Magnesium Ferritin Direct Bilirubin AST ALT Ammonia Lactate Dehydrogenase Total Creatine Kinase CK-MB (CK-2) CK-MB (CK-2) Rel Index Troponin T C-Reactive Protein Total Protein Albumin Prealbumin Triglycerides HDL Cholesterol Arterial Blood Glucose 96 H Arterial Blood Ionized Calcium 4.4 L Acetaminophen Crossmatch See Detail 03/13/21 03/13/21 03/13/21 20:06 20:16 20:24 WBC RBC Hgb 8.1 L Hct 24.1 L MCV RDW Plt Count Lymph % (Auto) [place] % (Auto) Lymph # (Auto) [place] # (Auto) Seg Neutrophils % Seg Neuts % (Manual) Lymphocytes % (Manual) Seg Neutrophils # Seg Neutrophils # Man Lymphocytes # (Manual) APTT D-Dimer ABG pH 7.094 L POC ABG pCO2 64.0 H POC ABG pO2 68.2 L ABG pO2 ABG HCO3 ABG O2 Saturation ABG Base Excess ABG Hemoglobin 7.9 L ABG Oxyhemoglobin 84.6 L ABG Sodium ABG Potassium 4.9 H ABG Chloride ABG Glucose 220 H Carboxyhemoglobin Sodium Potassium Chloride Carbon Dioxide BUN Creatinine Glucose POC Glucose 188 H Lactic Acid Calcium Phosphorus Magnesium Ferritin Direct Bilirubin AST ALT Ammonia Lactate Dehydrogenase Total Creatine Kinase CK-MB (CK-2) CK-MB (CK-2) Rel Index Troponin T C-Reactive Protein Total Protein Albumin Prealbumin Triglycerides HDL Cholesterol Arterial Blood Glucose 220 H Arterial Blood Ionized Calcium 4.1 L Acetaminophen Crossmatch 03/13/21 03/14/21 03/14/21 23:17 04:00 04:00 WBC 17.9 H RBC 2.55 L Hgb 7.8 L Hct 23.1 L MCV RDW Plt Count 111 L Lymph % (Auto) [place] % (Auto) Lymph # (Auto) [place] # (Auto) Seg Neutrophils % Seg Neuts % (Manual) 99.0 H Lymphocytes % (Manual) Seg Neutrophils # Seg Neutrophils # Man 17.7 H Lymphocytes # (Manual) 0.0 L APTT D-Dimer ABG pH POC ABG pCO2 POC ABG pO2 ABG pO2 ABG HCO3 ABG O2 Saturation ABG Base Excess ABG Hemoglobin ABG Oxyhemoglobin ABG Sodium ABG Potassium ABG Chloride ABG Glucose Carboxyhemoglobin Sodium Potassium Chloride Carbon Dioxide 35 H BUN 48 H Creatinine 1.7 H D Glucose 258 H POC Glucose 244 H Lactic Acid Calcium 7.2 L Phosphorus Magnesium Ferritin Direct Bilirubin AST ALT Ammonia Lactate Dehydrogenase Total Creatine Kinase CK-MB (CK-2) CK-MB (CK-2) Rel Index Troponin T C-Reactive Protein Total Protein Albumin Prealbumin Triglycerides HDL Cholesterol Arterial Blood Glucose Arterial Blood Ionized Calcium Acetaminophen Crossmatch 03/14/21 03/14/21 03/14/21 05:15 10:24 14:54 WBC RBC Hgb 8.3 L Hct 24.1 L MCV RDW Plt Count Lymph % (Auto) [place] % (Auto) Lymph # (Auto) [place] # (Auto) Seg Neutrophils % Seg Neuts % (Manual) Lymphocytes % (Manual) Seg Neutrophils # Seg Neutrophils # Man Lymphocytes # (Manual) APTT D-Dimer ABG pH 7.294 L POC ABG pCO2 69.4 H POC ABG pO2 128.0 H ABG pO2 ABG HCO3 ABG O2 Saturation ABG Base Excess ABG Hemoglobin 10.2 L ABG Oxyhemoglobin ABG Sodium ABG Potassium ABG Chloride ABG Glucose 130 H Carboxyhemoglobin 0.3 L Sodium Potassium Chloride Carbon Dioxide BUN Creatinine Glucose POC Glucose 203 H Lactic Acid Calcium Phosphorus Magnesium Ferritin Direct Bilirubin AST ALT Ammonia Lactate Dehydrogenase Total Creatine Kinase CK-MB (CK-2) CK-MB (CK-2) Rel Index Troponin T C-Reactive Protein Total Protein Albumin Prealbumin Triglycerides HDL Cholesterol Arterial Blood Glucose 130 H Arterial Blood Ionized Calcium 4.1 L Acetaminophen Crossmatch 03/14/21 03/14/21 03/15/21 17:37 23:39 04:00 WBC RBC Hgb 8.0 L Hct 23.4 L MCV RDW Plt Count 119 L Lymph % (Auto) [place] % (Auto) Lymph # (Auto) [place] # (Auto) Seg Neutrophils % Seg Neuts % (Manual) Lymphocytes % (Manual) Seg Neutrophils # Seg Neutrophils # Man Lymphocytes # (Manual) APTT D-Dimer ABG pH POC ABG pCO2 POC ABG pO2 ABG pO2 ABG HCO3 ABG O2 Saturation ABG Base Excess ABG Hemoglobin ABG Oxyhemoglobin ABG Sodium ABG Potassium ABG Chloride ABG Glucose Carboxyhemoglobin Sodium Potassium Chloride Carbon Dioxide BUN Creatinine Glucose POC Glucose 110 H 112 H Lactic Acid Calcium Phosphorus Magnesium Ferritin Direct Bilirubin AST ALT Ammonia Lactate Dehydrogenase Total Creatine Kinase CK-MB (CK-2) CK-MB (CK-2) Rel Index Troponin T C-Reactive Protein Total Protein Albumin Prealbumin Triglycerides HDL Cholesterol Arterial Blood Glucose Arterial Blood Ionized Calcium Acetaminophen Crossmatch 03/15/21 03/15/21 03/15/21 04:00 05:54 10:32 WBC RBC Hgb Hct MCV RDW Plt Count Lymph % (Auto) [place] % (Auto) Lymph # (Auto) [place] # (Auto) Seg Neutrophils % Seg Neuts % (Manual) Lymphocytes % (Manual) Seg Neutrophils # Seg Neutrophils # Man Lymphocytes # (Manual) APTT D-Dimer ABG pH POC ABG pCO2 71.5 H POC ABG pO2 ABG pO2 ABG HCO3 ABG O2 Saturation ABG Base Excess ABG Hemoglobin 7.9 L ABG Oxyhemoglobin ABG Sodium ABG Potassium ABG Chloride ABG Glucose 160 H Carboxyhemoglobin Sodium Potassium Chloride Carbon Dioxide 39 H BUN 41 H Creatinine 1.6 H Glucose 153 H POC Glucose 131 H Lactic Acid Calcium 7.0 L Phosphorus Magnesium Ferritin Direct Bilirubin AST ALT Ammonia Lactate Dehydrogenase Total Creatine Kinase CK-MB (CK-2) CK-MB (CK-2) Rel Index Troponin T C-Reactive Protein Total Protein Albumin Prealbumin Triglycerides HDL Cholesterol Arterial Blood Glucose 160 H Arterial Blood Ionized Calcium 3.9 L Acetaminophen Crossmatch 03/15/21 03/15/21 03/15/21 11:19 11:37 11:40 WBC RBC Hgb Hct MCV RDW Plt Count Lymph % (Auto) [place] % (Auto) Lymph # (Auto) [place] # (Auto) Seg Neutrophils % Seg Neuts % (Manual) Lymphocytes % (Manual) Seg Neutrophils # Seg Neutrophils # Man Lymphocytes # (Manual) APTT D-Dimer ABG pH POC ABG pCO2 POC ABG pO2 ABG pO2 ABG HCO3 ABG O2 Saturation ABG Base Excess ABG Hemoglobin ABG Oxyhemoglobin ABG Sodium ABG Potassium ABG Chloride ABG Glucose Carboxyhemoglobin Sodium Potassium Chloride Carbon Dioxide BUN Creatinine Glucose 317 H POC Glucose 28 L 25 L Lactic Acid Calcium Phosphorus Magnesium Ferritin Direct Bilirubin AST ALT Ammonia Lactate Dehydrogenase Total Creatine Kinase CK-MB (CK-2) CK-MB (CK-2) Rel Index Troponin T C-Reactive Protein Total Protein Albumin Prealbumin Triglycerides HDL Cholesterol Arterial Blood Glucose Arterial Blood Ionized Calcium Acetaminophen Crossmatch 03/15/21 03/15/21 03/15/21 12:33 20:05 20:15 WBC RBC Hgb 8.0 L Hct 23.5 L MCV RDW Plt Count Lymph % (Auto) [place] % (Auto) Lymph # (Auto) [place] # (Auto) Seg Neutrophils % Seg Neuts % (Manual) Lymphocytes % (Manual) Seg Neutrophils # Seg Neutrophils # Man Lymphocytes # (Manual) APTT D-Dimer ABG pH POC ABG pCO2 63.7 H POC ABG pO2 43.1 L ABG pO2 ABG HCO3 ABG O2 Saturation ABG Base Excess ABG Hemoglobin 8.1 L ABG Oxyhemoglobin 76.4 L ABG Sodium 134.8 L ABG Potassium ABG Chloride ABG Glucose 171 H Carboxyhemoglobin Sodium Potassium Chloride Carbon Dioxide BUN Creatinine Glucose POC Glucose 145 H Lactic Acid Calcium Phosphorus Magnesium Ferritin Direct Bilirubin AST ALT Ammonia Lactate Dehydrogenase Total Creatine Kinase CK-MB (CK-2) CK-MB (CK-2) Rel Index Troponin T C-Reactive Protein Total Protein Albumin Prealbumin Triglycerides HDL Cholesterol Arterial Blood Glucose 171 H Arterial Blood Ionized Calcium 3.9 L Acetaminophen Crossmatch 03/16/21 03/16/21 03/16/21 04:05 09:53 09:53 WBC 17.9 H RBC 2.51 L Hgb 7.8 L Hct 23.1 L MCV RDW Plt Count 96 L 114 L Lymph % (Auto) [place] % (Auto) Lymph # (Auto) [place] # (Auto) Seg Neutrophils % Seg Neuts % (Manual) Lymphocytes % (Manual) Seg Neutrophils # Seg Neutrophils # Man Lymphocytes # (Manual) APTT D-Dimer ABG pH POC ABG pCO2 POC ABG pO2 ABG pO2 ABG HCO3 ABG O2 Saturation ABG Base Excess ABG Hemoglobin ABG Oxyhemoglobin ABG Sodium ABG Potassium ABG Chloride ABG Glucose Carboxyhemoglobin Sodium Potassium Chloride Carbon Dioxide 42 H* BUN 30 H Creatinine Glucose 220 H POC Glucose Lactic Acid Calcium 7.4 L Phosphorus Magnesium Ferritin Direct Bilirubin AST ALT Ammonia Lactate Dehydrogenase Total Creatine Kinase CK-MB (CK-2) CK-MB (CK-2) Rel Index Troponin T C-Reactive Protein Total Protein Albumin Prealbumin Triglycerides HDL Cholesterol Arterial Blood Glucose Arterial Blood Ionized Calcium Acetaminophen Crossmatch 03/16/21 03/16/21 03/16/21 11:36 11:39 21:59 WBC RBC Hgb Hct MCV RDW Plt Count Lymph % (Auto) [place] % (Auto) Lymph # (Auto) [place] # (Auto) Seg Neutrophils % Seg Neuts % (Manual) Lymphocytes % (Manual) Seg Neutrophils # Seg Neutrophils # Man Lymphocytes # (Manual) APTT D-Dimer ABG pH POC ABG pCO2 88.2 H POC ABG pO2 50.2 L ABG pO2 ABG HCO3 ABG O2 Saturation ABG Base Excess ABG Hemoglobin 8.1 L ABG Oxyhemoglobin 80.2 L ABG Sodium 135.4 L ABG Potassium ABG Chloride 97.0 L ABG Glucose 98 H Carboxyhemoglobin Sodium Potassium Chloride Carbon Dioxide BUN Creatinine Glucose POC Glucose 58 L 210 H Lactic Acid Calcium Phosphorus Magnesium Ferritin Direct Bilirubin AST ALT Ammonia Lactate Dehydrogenase Total Creatine Kinase CK-MB (CK-2) CK-MB (CK-2) Rel Index Troponin T C-Reactive Protein Total Protein Albumin Prealbumin Triglycerides HDL Cholesterol Arterial Blood Glucose 98 H Arterial Blood Ionized Calcium 4.0 L Acetaminophen Crossmatch 03/17/21 03/17/21 03/17/21 00:13 00:35 00:55 WBC RBC Hgb Hct MCV RDW Plt Count Lymph % (Auto) [place] % (Auto) Lymph # (Auto) [place] # (Auto) Seg Neutrophils % Seg Neuts % (Manual) Lymphocytes % (Manual) Seg Neutrophils # Seg Neutrophils # Man Lymphocytes # (Manual) APTT D-Dimer ABG pH POC ABG pCO2 69.0 H POC ABG pO2 ABG pO2 ABG HCO3 ABG O2 Saturation ABG Base Excess ABG Hemoglobin 7.2 L ABG Oxyhemoglobin ABG Sodium 135.0 L ABG Potassium ABG Chloride ABG Glucose 110 H Carboxyhemoglobin Sodium Potassium Chloride Carbon Dioxide BUN Creatinine Glucose POC Glucose 119 H Lactic Acid Calcium Phosphorus Magnesium Ferritin Direct Bilirubin 0.3 H AST 229 H ALT 426 H Ammonia Lactate Dehydrogenase Total Creatine Kinase CK-MB (CK-2) CK-MB (CK-2) Rel Index Troponin T C-Reactive Protein Total Protein 4.6 L Albumin 2.5 L Prealbumin Triglycerides HDL Cholesterol Arterial Blood Glucose 110 H Arterial Blood Ionized Calcium 4.0 L Acetaminophen Crossmatch 03/17/21 03/17/21 03/17/21 00:55 06:30 06:30 WBC 25.9 H RBC 2.16 L Hgb 6.7 L Hct 20.0 L MCV RDW Plt Count 124 L Lymph % (Auto) [place] % (Auto) Lymph # (Auto) [place] # (Auto) Seg Neutrophils % Seg Neuts % (Manual) 98.0 H Lymphocytes % (Manual) 2.0 L Seg Neutrophils # Seg Neutrophils # Man 25.4 H Lymphocytes # (Manual) 0.5 L APTT 44.5 H D-Dimer ABG pH POC ABG pCO2 POC ABG pO2 ABG pO2 ABG HCO3 ABG O2 Saturation ABG Base Excess ABG Hemoglobin ABG Oxyhemoglobin ABG Sodium ABG Potassium ABG Chloride ABG Glucose Carboxyhemoglobin Sodium Potassium Chloride Carbon Dioxide 42 H* BUN 30 H Creatinine Glucose 171 H POC Glucose Lactic Acid Calcium 7.5 L Phosphorus Magnesium Ferritin Direct Bilirubin AST ALT Ammonia Lactate Dehydrogenase Total Creatine Kinase CK-MB (CK-2) CK-MB (CK-2) Rel Index Troponin T C-Reactive Protein Total Protein Albumin Prealbumin Triglycerides HDL Cholesterol Arterial Blood Glucose Arterial Blood Ionized Calcium Acetaminophen Crossmatch 03/17/21 03/17/21 03/17/21 09:20 10:13 11:57 WBC RBC Hgb Hct MCV RDW Plt Count Lymph % (Auto) [place] % (Auto) Lymph # (Auto) [place] # (Auto) Seg Neutrophils % Seg Neuts % (Manual) Lymphocytes % (Manual) Seg Neutrophils # Seg Neutrophils # Man Lymphocytes # (Manual) APTT 63.2 H* D-Dimer ABG pH POC ABG pCO2 POC ABG pO2 ABG pO2 ABG HCO3 ABG O2 Saturation ABG Base Excess ABG Hemoglobin ABG Oxyhemoglobin ABG Sodium ABG Potassium ABG Chloride ABG Glucose Carboxyhemoglobin Sodium Potassium Chloride Carbon Dioxide BUN Creatinine Glucose POC Glucose 48 L Lactic Acid Calcium Phosphorus Magnesium Ferritin Direct Bilirubin AST ALT Ammonia Lactate Dehydrogenase Total Creatine Kinase CK-MB (CK-2) CK-MB (CK-2) Rel Index Troponin T C-Reactive Protein Total Protein Albumin Prealbumin Triglycerides HDL Cholesterol Arterial Blood Glucose Arterial Blood Ionized Calcium Acetaminophen Crossmatch See Detail 03/17/21 03/17/21 03/17/21 12:01 17:09 18:23 WBC RBC Hgb Hct MCV RDW Plt Count Lymph % (Auto) [place] % (Auto) Lymph # (Auto) [place] # (Auto) Seg Neutrophils % Seg Neuts % (Manual) Lymphocytes % (Manual) Seg Neutrophils # Seg Neutrophils # Man Lymphocytes # (Manual) APTT D-Dimer ABG pH POC ABG pCO2 POC ABG pO2 ABG pO2 ABG HCO3 ABG O2 Saturation ABG Base Excess ABG Hemoglobin ABG Oxyhemoglobin ABG Sodium ABG Potassium ABG Chloride ABG Glucose Carboxyhemoglobin Sodium Potassium Chloride Carbon Dioxide BUN Creatinine Glucose POC Glucose 159 H 68 L 60 L Lactic Acid Calcium Phosphorus Magnesium Ferritin Direct Bilirubin AST ALT Ammonia Lactate Dehydrogenase Total Creatine Kinase CK-MB (CK-2) CK-MB (CK-2) Rel Index Troponin T C-Reactive Protein Total Protein Albumin Prealbumin Triglycerides HDL Cholesterol Arterial Blood Glucose Arterial Blood Ionized Calcium Acetaminophen Crossmatch 03/17/21 03/18/21 03/18/21 18:26 05:00 05:00 WBC 35.7 H RBC 2.59 L Hgb 7.9 L Hct 23.3 L MCV RDW 16.6 H Plt Count 79 L Lymph % (Auto) [place] % (Auto) Lymph # (Auto) [place] # (Auto) Seg Neutrophils % Seg Neuts % (Manual) 93.0 H Lymphocytes % (Manual) Seg Neutrophils # Seg Neutrophils # Man 33.2 H Lymphocytes # (Manual) 0.0 L APTT D-Dimer ABG pH POC ABG pCO2 POC ABG pO2 ABG pO2 ABG HCO3 ABG O2 Saturation ABG Base Excess ABG Hemoglobin ABG Oxyhemoglobin ABG Sodium ABG Potassium ABG Chloride ABG Glucose Carboxyhemoglobin Sodium Potassium Chloride 97.0 L Carbon Dioxide 44 H* BUN 27 H Creatinine Glucose 119 H POC Glucose 60 L Lactic Acid Calcium 7.3 L Phosphorus 1.90 L Magnesium 1.60 L Ferritin Direct Bilirubin 0.3 H AST 228 H ALT 406 H Ammonia Lactate Dehydrogenase Total Creatine Kinase CK-MB (CK-2) CK-MB (CK-2) Rel Index Troponin T C-Reactive Protein Total Protein 4.8 L Albumin 2.4 L Prealbumin Triglycerides HDL Cholesterol Arterial Blood Glucose Arterial Blood Ionized Calcium Acetaminophen Crossmatch 03/18/21 10:25 WBC RBC Hgb Hct MCV RDW Plt Count Lymph % (Auto) [place] % (Auto) Lymph # (Auto) [place] # (Auto) Seg Neutrophils % Seg Neuts % (Manual) Lymphocytes % (Manual) Seg Neutrophils # Seg Neutrophils # Man Lymphocytes # (Manual) APTT 49.2 H D-Dimer ABG pH POC ABG pCO2 POC ABG pO2 ABG pO2 ABG HCO3 ABG O2 Saturation ABG Base Excess ABG Hemoglobin ABG Oxyhemoglobin ABG Sodium ABG Potassium ABG Chloride ABG Glucose Carboxyhemoglobin Sodium Potassium Chloride Carbon Dioxide BUN Creatinine Glucose POC Glucose Lactic Acid Calcium Phosphorus Magnesium Ferritin Direct Bilirubin AST ALT Ammonia Lactate Dehydrogenase Total Creatine Kinase CK-MB (CK-2) CK-MB (CK-2) Rel Index Troponin T C-Reactive Protein Total Protein Albumin Prealbumin Triglycerides HDL Cholesterol Arterial Blood Glucose Arterial Blood Ionized Calcium Acetaminophen Crossmatch
[2021-03-18 12:14] LABS: Hematocrit 23.3 % (35.5-45.6); Hemoglobin 7.8 gm/dl (11.8-15.2)
[2021-03-18] MEDS: DEXTROSE 10% IN WATER 1,000 ML IV SCH (12:39)
[2021-03-18] MEDS: K-PHOS NEUTRAL 250 MG TAB PO SCH ×3 (13:19→23:08)
[2021-03-18] MEDS: methylPREDNISolone Sod Succinate 40 MG/1 ML INJ IV SCH (13:19)
--- NOTE | 2021-03-18 15:48 | Progress Note ---
<WILDMATHEUS ZhouKeshia - Last Filed: 03/18/21 16:23> Assessment and Plan Assessment and plan: This is 65-year-old male with COPD on 2 L home oxygen, ongoing tobacco abuse, history of vascular dementia admitted for sepsis, STEMI and V. tach cardiac arrest s/p cardiac cath with PCI, right foot ischemia/cyanosis with cold extremities, retroperitoneal/iliopsoas hematoma Neuro: Acute encephalopathy, h/o vascular dementia, cerebral sclerosis -Patient is alert and oriented on examination -Patient is from [facility] -Avoid delirium -Reorientation as needed -CT head showed no acute infarct but extensive atherosclerotic disease with calcification -Continue aspirin, statin and Plavix Cardiology: S/p V. tach arrest 03/10, STEMI, acute systolic congestive heart failure with EF of 35 to 40% -S/p ACLS with shock and placed on amiodarone -S/p PCI to mid LAD and successful plantation of JARED -Cardiology consulted, appreciate recommendations -S/p Aggrastat drip -Aspirin, statin, Plavix, beta-avery -S/p Levophed drip Respiratory: Acute on chronic respiratory failure with hypoxia, COPD exacerbation, nicotine abuse, ? Left pneumothorax -CCM and surgery consulted, appreciate recommendations -2 L nasal cannula at home -S/p intubation in the emergency department now extubated -Intermittent use of BiPAP -Was on Venturi mask -weaned to NC -Pulmonary hygiene -Continue SPO2 monitoring -S/p needle decompression and chest tube placement -03/08 CTA Chest: BL LL PNA noted, small left apical pneumo appreciated. GI: Possible GI bleed, transaminitis, hypoglycemia -GI and ntr consulted, appreciate recommendations -Protonix -TF -Trend CBC, LFTs -Avoid hypoglycemia -ST eval recommends NPO : NAD -condom cath Endo: Hypoglycemia -SSI, hold for hypoglycemia -Accu-Cheks q4 -Avoid hypoglycemia -Started on D10 gtt re: hypoglycemia ID: Severe sepsis with shock, bilateral pneumonia, Leukocytosis -Patient disease consulted, patient recommendations -S/p cefepime -S/p vasopressor support -Monitor for signs and symptoms of infection and fever curve -Leukocytosis may be r/t steroids Heme: Acute on chronic anemia, thrombocytopenia, Right iliopsoas hematoma, ?HIT, right foot ischemia -Hematology/oncology and vascular surgery consulted, appreciate recommendations -Argatroban drip -IV steroids per Hem/Onc -Trend CBC -HIT pending -Transfuse for hemoglobin less than 7 or hematocrit less than 23 (per heme/onc) -COVID pcr negative x2 -S/p 4 units PRBC The high probability of a clinically significant, sudden or life threatening d eterioration of the [multi] system(s) required my full and direct attention, intervention and personal management. The aggregate critical care time was [60] minutes. This time is in addition to time spent performing reported procedures but includes the following: [x] Data Review and interpretation [x] Patient assessment and monitoring of vital signs [x] Documentation [x] Medication orders and management Disposition Plan: icu Total Time Spent with Patient (Minutes): 60 History Interval history: This is a 65-year-old male with COPD on 2L home O2, ongoing tobacco abuse and h/o vascular dementia brought to hospital by EMS for altered mental status and respiratory failure. On EMS arrival patient had a temperature 102.3, severely hypoxic with diminished breath sounds in the left side and there was a concern for pneumothorax on the left side. EMS performed a decompression of the left hemothorax but upon arrival to the emergency room EMS placed the chest tube/catheter became dislodged. Stat chest x-ray showed no obvious left-sided pneumothorax. Given altered mental status and respiratory failure with history of hypoxia patient was intubated by the ED physician. Code sepsis was called and the patient was admitted to ICU for further stabilization and Mx. He is neg for COVID x2. His hospital stay got complicated with STEMI and V. tach cardiac arrest, S/p cardiac cath with PCI to mid LAD by cardiology and following cardiac cath he developed right foot ischemia/cyanosis with cold extremity - placed on heparin drip, h/h declined with black tarry stool x2 and CT abdomen suggesting of retroperitoneal/iliopsoas hematoma. Heparin drip has been discontinued, patient transfused 2 units of packed RBC. Consultants include: CCM, GI, Cardiology, Hematology/Oncology 03/09: Hypotensive in AM, Dr. Inman placed right IJ CVC. Patient intiated on pressors. UOP 200 cc overnight. 03/10: Planned for extubation today, repeat covid test pending. RN called for elevated trop - ordered serial trop, ekg, 2d echo, aspirin, statin and placed cardiology consult. will cont to follow clinically, pt remains on levophed 03/11: Patient had Vtech cardiac arrest last night. EKG showed acute STEMI. placed on amioderone and heparin drip. S/p PCI today with stent placement, discontinued heparin drip and started on Aggrastat. Patient now noted with cold bluish LE right>left. Discussed with Dr Armstrong and recommended to initiate low intensity heparin drip after sheath was removed. Placed order and discussed the plan with nurse and pharmacy. Ordered stat lower extremity arterial Doppler and consulted vascular surgeon. Patient remains on Ventimask with 10 to 15 L of O2. Patient also remains confused, continue supportive care and follow clinically. 03/12/21: LE remain clod and cyanotic, R> L. cont heparin drip, monitor h/h. vascular procedure when clinically more stable. discussed with daughter and updated with all clinical details. pt remains on pressor. critically ill. 03/13/21; Patient had bloody BM this am. stop heparin, start protonix IV BID. follow h/h, cont pressor, transfuse 2units PRBC. mental status declined - remains agitated and restrained. Requiring pressor support. Ordered for CT abdomen pelvis for profound anemia. platient was placed on bicarbonate drip for severe acidosis. pulled out first central line, new rIJ placed 03/14/21: CT abdomen pelvis suggestive of moderate right iliopsoas hematoma, continue to follow H&H and consult general surgery. pt on BIPAP today, h/h stable. hold ACEI/spiranolactone for GAURAV. d/c bicarbonate drip as pt becoming alkalotic. patient remains confused and agitated - on restraint 03/15/21: patient on 4L n/c today, remains lethargic, H&H stable after 2 units of packed RBC on 03/13. Remains off anticoagulation due to low platelets. Very poor prognosis, vascular following for retroperitoneal hematoma. GI recommended medical management for now possible GI bleed. Per GI patient is not stable from respiratory standpoint for endoscopy. Extremely poor prognosis, will update family. Continue to monitor clinically 03/16/21: updated both daughter in details. Patient placed back on BiPAP, repeat H&H and BMP ordered. Noted improved renal function, try to initiate tube feeding today. Platelet count continues to decline -we will consult hematology. Continue to hold anticoagulation. We will initiate aspirin and Plavix after placing Dobbhoff tube. Discussed CODE STATUS and poor prognosis with patient daughters and they stated they will decide soon. 03/17: Argatroban was stopped by cardiology be resumed by heme/oncology who also wants to continue Solu-Medrol and transfuse 1 unit PRBC if hematocrit less than 23. Patient was preloaded with Plavix and the need on daily dose of Plavix and aspirin per cardiology also stop argatroban today due to further evidence of possible possible bleeding and drop in hematocrit. 03/18/21: Argatroban restarted this morning by heme, Accu-Cheks every 4, started on D10 and per RN request placed on mechanical soft diet. Reviewed ST no which recommends NPO. Hospitalist Physical - Constitutional Vitals: Temp Pulse Resp BP Pulse Ox 98.0 F 88 19 161/61 86 03/18/21 08:00 03/18/21 15:00 03/18/21 15:00 03/18/21 15:00 03/18/21 15:00 General appearance: Present: no acute distress, cachectic - EENT Eyes: Present: PERRL, EOM intact ENT: hearing intact, poor dentition - Neck Neck: Present: normal ROM - Respiratory Respiratory effort: normal Respiratory: bilateral: CTA, diminished - Cardiovascular Rhythm: regular Heart Sounds: Present: S1 & S2. Absent: systolic murmur, diastolic murmur - Extremities Extremities: no ischemia, pulses intact, pulses symmetrical, No edema, normal temperature, normal color, Full ROM Peripheral Pulses: abnormal - Peripheral pulses dorsalis pedis Pulse Strength: Absent (left leg / right leg doppler) posterial tibial Pulse Strength: Absent (absent left leg/dopplar ight leg) - Abdominal General gastrointestinal: soft, non-tender, non-distended, normal bowel sounds - Integumentary Integumentary: Present: erythema (ecchymosis/hematoma) - Psychiatric Psychiatric: appropriate mood/affect, cooperative - Neurologic Neurologic: CNII-XII intact, no focal deficits, moves all extremities - Allied Health Allied health notes reviewed: nursing, RT, social work HEART Score - HEART Score Age: > 65 Risk factors: No known risk factors Troponin: Troponin T 0.261 ng/mL (0.00-0.029) H* D 03/12/21 04:40 Troponin: < normal limit - Critical Actions Critical Actions: 0-3 pts:0.9-1.7%risk of adverse cardiac event.Candidate for discharge Results - Labs CBC & Chem 7: 03/18/21 10:25 03/18/21 05:00 Labs: Laboratory Last Values WBC 35.7 K/mm3 (4.5-11.0) H 03/18/21 05:00 RBC 2.59 M/mm3 (3.65-5.03) L 03/18/21 05:00 Hgb 7.8 gm/dl (11.8-15.2) L 03/18/21 10:25 Hct 23.3 % (35.5-45.6) L 03/18/21 10:25 MCV 90 fl (84-94) 03/18/21 05:00 MCH 30 pg (28-32) 03/18/21 05:00 MCHC 34 % (32-34) 03/18/21 05:00 RDW 16.6 % (13.2-15.2) H 03/18/21 05:00 Plt Count 79 K/mm3 (140-440) L 03/18/21 05:00 Lymph % (Auto) 2.6 % (13.4-35.0) L 03/10/21 05:14 [place] % (Auto) 7.5 % (0.0-7.3) H 03/10/21 05:14 Eos % (Auto) 0.0 % (0.0-4.3) 03/10/21 05:14 Baso % (Auto) 0.1 % (0.0-1.8) 03/10/21 05:14 Lymph # (Auto) 0.3 K/mm3 (1.2-5.4) L 03/10/21 05:14 Candler # (Auto) 0.9 K/mm3 (0.0-0.8) H 03/10/21 05:14 Eos # (Auto) 0.0 K/mm3 (0.0-0.4) 03/10/21 05:14 Baso # (Auto) 0.0 K/mm3 (0.0-0.1) 03/10/21 05:14 Add Manual Diff Complete 03/18/21 05:00 Total Counted 100 03/18/21 05:00 Seg Neutrophils % Tool Crib Clerk 03/18/21 05:00 Seg Neuts % (Manual) 93.0 % (40.0-70.0) H 03/18/21 05:00 Band Neutrophils % 5.0 % 03/18/21 05:00 Lymphocytes % (Manual) 2.0 % (13.4-35.0) L 03/17/21 06:30 Monocytes % (Manual) 2.0 % (0.0-7.3) 03/18/21 05:00 Nucleated RBC % Not Reportable 03/18/21 05:00 Seg Neutrophils # 10.8 K/mm3 (1.8-7.7) H 03/10/21 05:14 Seg Neutrophils # Man 33.2 K/mm3 (1.8-7.7) H 03/18/21 05:00 Band Neutrophils # 1.8 K/mm3 03/18/21 05:00 Lymphocytes # (Manual) 0.0 K/mm3 (1.2-5.4) L 03/18/21 05:00 Abs React Lymphs (Man) 0.0 K/mm3 03/18/21 05:00 Monocytes # (Manual) 0.7 K/mm3 (0.0-0.8) 03/18/21 05:00 Eosinophils # (Manual) 0.0 K/mm3 (0.0-0.4) 03/18/21 05:00 Basophils # (Manual) 0.0 K/mm3 (0.0-0.1) 03/18/21 05:00 Metamyelocytes # 0.0 K/mm3 03/18/21 05:00 Myelocytes # 0.0 K/mm3 03/18/21 05:00 Promyelocytes # 0.0 K/mm3 03/18/21 05:00 Blast Cells # 0.0 K/mm3 03/18/21 05:00 Pathologist Review 03/18/21 05:00 WBC Morphology Not Reportable 03/17/21 06:30 Hypersegmented Neuts Not Reportable 03/18/21 05:00 Hyposegmented Neuts Not Reportable 03/18/21 05:00 Hypogranular Neuts Not Reportable 03/18/21 05:00 Smudge Cells Not Reportable 03/18/21 05:00 Toxic Granulation Not Reportable 03/18/21 05:00 Toxic Vacuolation Not Reportable 03/18/21 05:00 Dohle Bodies Not Reportable 03/18/21 05:00 Pelger-Huet Anomaly Not Reportable 03/18/21 05:00 Maritza Rods Not Reportable 03/18/21 05:00 Platelet Estimate Consistent w auto 03/18/21 05:00 Clumped Platelets Not Reportable 03/18/21 05:00 Plt Clumps, EDTA Not Reportable 03/18/21 05:00 Large Platelets Not Reportable 03/18/21 05:00 Giant Platelets Not Reportable 03/18/21 05:00 Platelet Satelliting Not Reportable 03/18/21 05:00 Plt Morphology Comment Not Reportable 03/18/21 05:00 RBC Morphology Not Reportable 03/18/21 05:00 Dimorphic RBCs Not Reportable 03/18/21 05:00 Polychromasia Not Reportable 03/18/21 05:00 Hypochromasia Not Reportable 03/18/21 05:00 Poikilocytosis Not Reportable 03/18/21 05:00 Anisocytosis Few 03/18/21 05:00 Microcytosis Not Reportable 03/18/21 05:00 Macrocytosis Not Reportable 03/18/21 05:00 Spherocytes Not Reportable 03/18/21 05:00 Pappenheimer Bodies Not Reportable 03/18/21 05:00 Sickle Cells Not Reportable 03/18/21 05:00 Target Cells Not Reportable 03/18/21 05:00 Tear Drop Cells Not Reportable 03/18/21 05:00 Ovalocytes Not Reportable 03/18/21 05:00 Helmet Cells Not Reportable 03/18/21 05:00 Gautam[place] Bodies Not Reportable 03/18/21 05:00 Catano Rings Not Reportable 03/18/21 05:00 Hays Cells Not Reportable 03/18/21 05:00 Bite Cells Not Reportable 03/18/21 05:00 Crenated Cell Not Reportable 03/18/21 05:00 Elliptocytes Not Reportable 03/18/21 05:00 Acanthocytes (Spur) Not Reportable 03/18/21 05:00 Rouleaux Not Reportable 03/18/21 05:00 Hemoglobin C Crystals Not Reportable 03/18/21 05:00 Schistocytes Not Reportable 03/18/21 05:00 Malaria parasites Not Reportable 03/18/21 05:00 Timoteo Bodies Not Reportable 03/18/21 05:00 Hem Pathologist Commnt Sent to pathology 03/18/21 05:00 PT 14.6 Sec. (12.2-14.9) 03/11/21 21:50 INR 1.09 (0.87-1.13) 03/11/21 21:50 APTT 49.2 Sec. (24.2-36.6) H 03/18/21 10:25 D-Dimer 832.06 ng/mlDDU (0-234) H 03/08/21 15:49 Heparin Anti-Xa Level 0.65 U.I./ml (0.3-0.7) 03/13/21 01:44 ABG pH 7.389 (7.320-7.450) 03/17/21 00:35 POC ABG pCO2 69.0 mmHg (32.0-48.0) H 03/17/21 00:35 ABG pCO2 43.0 mm Hg 03/08/21 15:12 POC ABG pO2 84.0 mmHg (83-108) 03/17/21 00:35 ABG pO2 381.9 mm Hg (80.0-90.0) H 03/08/21 15:12 POC ABG HCO3 40.7 03/17/21 00:35 ABG HCO3 31.2 mmol/L (20.0-26.0) H 03/08/21 15:12 ABG O2 Saturation 95.3 (0-100) 03/17/21 00:35 ABG O2 Content 18.9 (0.0-44) 03/08/21 15:12 POC ABG Base Excess 14.2 03/17/21 00:35 ABG Base Excess 6.9 mmol/L (-2.0-3.0) H 03/08/21 15:12 ABG Hemoglobin 7.2 (12.0-17.5) L 03/17/21 00:35 ABG Oxyhemoglobin 94.3 (94-98) 03/17/21 00:35 ABG Carboxyhemoglobin 1.5 % (0.0-5.0) 03/08/21 15:12 ABG Methemoglobin 0.3 (0.0-1.5) 03/17/21 00:35 ABG Sodium 135.0 mmol/L (136.0-145.0) L 03/17/21 00:35 ABG Potassium 3.7 mmol/L (3.40-4.50) 03/17/21 00:35 ABG Chloride 98.0 mmol/L (98-107) 03/17/21 00:35 ABG Glucose 110 mg/dL (65-95) H 03/17/21 00:35 Oxyhemoglobin 97.5 % (95.0-99.0) 03/08/21 15:12 Carboxyhemoglobin 0.8 (0.5-1.5) 03/17/21 00:35 FiO2 100 % 03/08/21 15:12 FiO2 % 70.0 03/16/21 21:59 Sodium 142 mmol/L (137-145) 03/18/21 05:00 Potassium 3.7 mmol/L (3.6-5.0) 03/18/21 05:00 Chloride 97.0 mmol/L (98-107) L 03/18/21 05:00 Carbon Dioxide 44 mmol/L (22-30) H* 03/18/21 05:00 Anion Gap 5 mmol/L 03/18/21 05:00 BUN 27 mg/dL (9-20) H 03/18/21 05:00 Creatinine 1.1 mg/dL (0.8-1.3) 03/18/21 05:00 Estimated GFR > 60 ml/min 03/18/21 05:00 BUN/Creatinine Ratio 25 % 03/18/21 05:00 Glucose 119 mg/dL (75-100) H 03/18/21 05:00 POC Glucose 143 mg/dL (70-105) H 03/18/21 12:04 Hemoglobin A1c 5.6 % (4-6) 03/09/21 06:18 Lactic Acid 3.40 mmol/L (0.7-2.0) H* 03/08/21 15:49 Calcium 7.3 mg/dL (8.4-10.2) L 03/18/21 05:00 Phosphorus 1.90 mg/dL (2.5-4.5) L 03/18/21 05:00 Magnesium 1.60 mg/dL (1.7-2.3) L 03/18/21 05:00 Ferritin 1373.0 ng/mL (30.0-300.0) H 03/08/21 15:49 Total Bilirubin 1.00 mg/dL (0.1-1.2) 03/18/21 05:00 Direct Bilirubin 0.3 mg/dL (0-0.2) H 03/18/21 05:00 Indirect Bilirubin 0.7 mg/dL 03/18/21 05:00 AST 228 units/L (5-40) H 03/18/21 05:00 ALT 406 units/L (7-56) H 03/18/21 05:00 Alkaline Phosphatase 41 units/L (35-129) 03/18/21 05:00 Ammonia 22.0 umol/L (25-60) L 03/08/21 15:49 Lactate Dehydrogenase 209 units/L (91-180) H 03/08/21 15:49 Total Creatine Kinase 98 units/L (55-170) 03/10/21 05:14 CK-MB (CK-2) 17.8 ng/mL (0.0-4.0) H 03/10/21 05:14 CK-MB (CK-2) Rel Index 18.1 (0-4) H 03/10/21 05:14 Troponin T 0.261 ng/mL (0.00-0.029) H* D 03/12/21 04:40 C-Reactive Protein 24.00 mg/dL (0.00-1.30) H 03/08/21 15:49 Total Protein 4.8 g/dL (6.3-8.2) L 03/18/21 05:00 Albumin 2.4 g/dL (3.9-5) L 03/18/21 05:00 Albumin/Globulin Ratio 1.0 % 03/18/21 05:00 Prealbumin 0.058 g/L (0.200-0.400) L 03/09/21 00:00 Triglycerides 173 mg/dL (2-149) H 03/10/21 05:14 Cholesterol 130 mg/dL (50-199) 03/10/21 05:14 LDL Cholesterol Direct 68 mg/dL (50-130) 03/10/21 05:14 HDL Cholesterol 36 mg/dL (40-59) L 03/10/21 05:14 Cholesterol/HDL Ratio 3.61 % 03/10/21 05:14 Procalcitonin 1.35 ng/mL (<0.15) 03/08/21 15:49 TSH 2.030 mlU/mL (0.270-4.200) 03/08/21 15:49 Arterial Blood Glucose 110 mg/dL (65-95) H 03/17/21 00:35 Arterial Blood Ionized Calcium 4.0 mg/dL (4.6-5.3) L 03/17/21 00:35 Urine Color Maren (Yellow) 03/08/21 16:54 Urine Turbidity Cloudy (Clear) 03/08/21 16:54 Urine pH 5.0 (5.0-7.0) 03/08/21 16:54 Ur Specific Reading 1.019 (1.003-1.030) 03/08/21 16:54 Urine Protein 100 mg/dl mg/dL (Negative) 03/08/21 16:54 Urine Glucose (UA) Neg mg/dL (Negative) 03/08/21 16:54 Urine Ketones Tr mg/dL (Negative) 03/08/21 16:54 Urine Blood Mod (Negative) 03/08/21 16:54 Urine Nitrite Neg (Negative) 03/08/21 16:54 Urine Bilirubin Neg (Negative) 03/08/21 16:54 Urine Urobilinogen < 2.0 mg/dL (<2.0) 03/08/21 16:54 Ur Leukocyte Esterase Neg (Negative) 03/08/21 16:54 Urine WBC (Auto) 2.0 /HPF (0.0-6.0) 03/08/21 16:54 Urine RBC (Auto) 3.0 /HPF (0.0-6.0) 03/08/21 16:54 U Epithel Cells (Auto) 1.0 /HPF (0-13.0) 03/08/21 16:54 Urine Bacteria (Auto) 1+ /HPF (Negative) 03/08/21 16:54 Hyaline Casts 1 /LPF 03/08/21 16:54 Urine Mucus Few /HPF 03/08/21 16:54 Salicylates 5.6 mg/dL (2.8-20.0) 03/08/21 15:49 Acetaminophen 5.0 ug/mL (10.0-30.0) L 03/08/21 15:49 Coronavirus (PCR) Negative (Negative) 03/10/21 Unknown Blood Type B POSITIVE 03/17/21 09:20 Antibody Screen Negative 03/17/21 09:20 Crossmatch See Detail 03/17/21 09:20 Savage/IV: Voiding Method Condom Catheter Active Medications - Current Medications Current Medications: Generic Name Dose Route Start Last Admin Trade Name Freq PRN Reason Stop Dose Admin Acetaminophen 650 mg 03/08/21 21:36 Acetaminophen 325 Mg Tab PO Q4H PRN Pain MILD(1-3)/Fever >100.5/MYERS Hydrocodone Bitart/Acetaminophen 1 each 03/11/21 13:59 Hydrocodone/Acetaminophen 5-325 Mg Tab PO Q6H PRN Pain, Moderate (4-6) Albuterol 2.5 mg 03/15/21 19:28 03/16/21 21:45 Albuterol 2.5 Mg/3 Ml Nebu IH 2.5 mg Q4HRT PRN Administration Shortness Of Breath Lipase/Protease/Amylase 1 each 03/08/21 21:42 Lipase 10,500/Protease 25,000/Amylase 43,750 (Units) Dr Johnson FEEDTUBE PRN PRN For Clogged Feeding Tube Arformoterol Tartrate 15 mcg 03/10/21 20:00 03/18/21 09:07 Arformoterol 15 Mcg/2 Ml Nebu IH 15 mcg Q12HRT PRINCESS Administration Aspirin 81 mg 03/10/21 15:00 03/18/21 09:06 Aspirin 81 Mg Tab Chew PO 81 mg QDAY PRINCESS Administration Atorvastatin Calcium 40 mg 03/11/21 22:00 03/17/21 22:06 Atorvastatin 40 Mg Tab PO 40 mg QHS PRINCESS Administration Budesonide 0.5 mg 03/09/21 20:00 03/18/21 09:07 Budesonide 0.5 Mg/2 Ml Nebu IH 0.5 mg Q12HRT PRINCESS Administration Clopidogrel Bisulfate 75 mg 03/12/21 10:00 03/18/21 09:06 Clopidogrel 75 Mg Tab PO 75 mg QDAY PRINCESS Administration Dextrose 50 ml 03/17/21 20:20 Dextrose 50% In Water (25gm) 50 Ml Syringe IV Q30MIN PRN Hypoglycemia Protocol Haloperidol Lactate 5 mg 03/13/21 11:15 03/13/21 11:28 Haloperidol Lactate 5 Mg/1 Ml Inj IV 5 mg Q6H PRN Administration Agitation Dextrose 1,000 mls @ 42 mls/hr 03/15/21 16:00 03/18/21 12:39 D10w IV 42 mls/hr DIRECT PRINCESS Administration Argatroban 250 mg/ Sodium 250 mls @ 1.527 mls/hr 03/18/21 08:00 03/18/21 09:02 Chloride IV 0.5 mcg/kg/min DIRECT PRINCESS 1.527 mls/hr Administration 0.5 MCG/KG/MIN Insulin Human Lispro 0 unit 03/10/21 12:00 03/18/21 12:37 Insulin Lispro 100 Unit/Ml SUB-Q Not Given Q6HR [facility] Protocol Methylprednisolone Sodium Succinate 40 mg 03/18/21 12:00 03/18/21 13:19 Methylprednisolone Sod Succinate 40 Mg/1 Ml Inj IV 40 mg Q24HR PRINCESS Administration Metoclopramide HCl 10 mg 03/08/21 21:36 Metoclopramide 10 Mg/2 Ml Inj IV Q6H PRN Nausea And Vomiting Metoprolol Tartrate 5 mg 03/17/21 16:00 03/18/21 09:07 Metoprolol Tartrate 5 Mg/5 Ml Inj IV 5 mg Q6H PRINCESS Administration Morphine Sulfate 1 mg 03/14/21 17:07 03/16/21 09:35 Morphine 2 Mg/1 Ml Inj IV 1 mg Q4H PRN Administration Pain, Moderate (4-6) Nitroglycerin 0.4 mg 03/16/21 06:00 03/18/21 06:06 Nitroglycerin 0.4 Mg Patch 24hr TD 0.4 mg QDAY@0600 PRINCESS Administration Ondansetron HCl 4 mg 03/08/21 21:36 Ondansetron 4 Mg/2 Ml Inj IV Q3H PRN Nausea And Vomiting Pantoprazole Sodium 40 mg 03/13/21 13:00 03/18/21 09:06 Pantoprazole 40 Mg Inj IV 40 mg BID PRINCESS Administration Simple Syrup 15 ml 03/08/21 21:42 Simple Syrup 15 Ml FEEDTUBE PRN PRN Hypoglycemia Simple Syrup 30 ml 03/08/21 21:42 Simple Syrup 15 Ml FEEDTUBE PRN PRN Hypoglycemia Sodium Bicarbonate 325 mg 03/08/21 21:42 Sodium Bicarbonate 325 Mg Tab FEEDTUBE PRN PRN For Clogged Feeding Tube Sodium Chloride 10 ml 03/08/21 22:00 03/18/21 10:39 Sodium Chloride 0.9% 10 Ml Flush Syringe IV 10 ml BID PRINCESS Administration Sodium Chloride 10 ml 03/08/21 21:36 03/16/21 05:17 Sodium Chloride 0.9% 10 Ml Flush Syringe IV 10 ml PRN PRN Administration LINE FLUSH Sodium Phosphate 250 mg 03/18/21 14:00 03/18/21 13:19 K-Phos Neutral 250 Mg Tab PO 03/19/21 23:59 250 mg QID PRINCESS Administration Nutrition/Malnutrition Assess - Dietary Evaluation Nutrition/Malnutrition Findings: Nutrition Notes Start: 03/09/21 07:48 Freq: Status: Active Protocol: Document 03/18/21 14:12 JEROME (Rec: 03/18/21 14:22 JEROME [email or web address]) Nutrition Notes Need for Assessment generated from: MD Order Initial or Follow up Reassessment Current Diagnosis Sepsis,Respiratory Failure Other Pertinent Diagnosis pneu, COVID PUI, anemia, AMS Current Diet Cardiac Labs/Tests Phos 1.9 Mg 1.6 POC BG 60-143 Pertinent Medications K-Phos 250 mg Solu Medrol D10w at 42ml/hr Mg Sulfate Na Phosphate Height 5 ft 5 in Weight 50.9 kg [place] Body Weight (kg) 61.81 BMI 18.6 Weight Status Underweight Subjective/Other Information MD consult for TF. TF not recommended d/t risk of aspiration on bipap. PPN recommeneded as pt at nutritonal risk. Pt with blackish stools yesterday. Burn Absent Trauma Absent Current % PO Negligible Minimum of two criteria Yes Energy Intake (severe) < or equal to 50% Estimated Energy Requirement > or equal to 5 days Body Fat Depletion Mild depletion (non-severe) #2 Nutrition Diagnosis Malnutrition Etiology acute illness As Evidenced by Signs and Symptoms <50% of EER in 5 days, fat wasting #1 Nutrition Diagnosis Inadequate oral intake As Evidenced by Signs and Symptoms pt not able to eat/drink Diagnosis Progress(for reassessment Worsened documentation) Is patient on ventilator? No Is Patient Ambulatory and/or Out of Bed No [phone] Calculation Used for Recommendations [facility] Additional Notes Protein: (1-1.2g/kg) 61-62g Fluid: 1 ml/kcal or per MD Nutrition Intervention Change Diet Order: Start TF Nutrition Support: Osmolite 1.5 at 40 ml/hr Flush 100 ml q4h or per MD Kcal 1,440 Protein (gm) 60 Fluid (mL) 732 Goal #1 Meet at least 75% of energy and protein needs via TF Anticipated Discharge Needs: cardiac Follow-Up By: 03/20/21 Additional Comments F/u: TF start/tolerance, respiratory status <ROMINA ROE R - Last Filed: 03/18/21 22:08> Assessment and Plan Assessment and plan: I saw and evaluated the patient. I agree with the findings and the plan of care as documented in the Nurse Practitioner's~note, Hospitalist Physical - Constitutional Vitals: Temp Pulse Resp BP Pulse Ox 98.0 F 77 16 135/56 100 03/18/21 20:00 03/18/21 18:30 03/18/21 18:30 03/18/21 18:30 03/18/21 18:30 HEART Score - HEART Score Troponin: Troponin T 0.261 ng/mL (0.00-0.029) H* D 03/12/21 04:40 Results - Labs CBC & Chem 7: 03/18/21 10:25 03/18/21 05:00 Labs: Laboratory Last Values WBC 35.7 K/mm3 (4.5-11.0) H 03/18/21 05:00 RBC 2.59 M/mm3 (3.65-5.03) L 03/18/21 05:00 Hgb 7.8 gm/dl (11.8-15.2) L 03/18/21 10:25 Hct 23.3 % (35.5-45.6) L 03/18/21 10:25 MCV 90 fl (84-94) 03/18/21 05:00 MCH 30 pg (28-32) 03/18/21 05:00 MCHC 34 % (32-34) 03/18/21 05:00 RDW 16.6 % (13.2-15.2) H 03/18/21 05:00 Plt Count 79 K/mm3 (140-440) L 03/18/21 05:00 Lymph % (Auto) 2.6 % (13.4-35.0) L 03/10/21 05:14 [place] % (Auto) 7.5 % (0.0-7.3) H 03/10/21 05:14 Eos % (Auto) 0.0 % (0.0-4.3) 03/10/21 05:14 Baso % (Auto) 0.1 % (0.0-1.8) 03/10/21 05:14 Lymph # (Auto) 0.3 K/mm3 (1.2-5.4) L 03/10/21 05:14 [place] # (Auto) 0.9 K/mm3 (0.0-0.8) H 03/10/21 05:14 Eos # (Auto) 0.0 K/mm3 (0.0-0.4) 03/10/21 05:14 Baso # (Auto) 0.0 K/mm3 (0.0-0.1) 03/10/21 05:14 Add Manual Diff Complete 03/18/21 05:00 Total Counted 100 03/18/21 05:00 Seg Neutrophils % Tool C[employer] Clerk 03/18/21 05:00 Seg Neuts % (Manual) 93.0 % (40.0-70.0) H 03/18/21 05:00 Band Neutrophils % 5.0 % 03/18/21 05:00 Lymphocytes % (Manual) 2.0 % (13.4-35.0) L 03/17/21 06:30 Monocytes % (Manual) 2.0 % (0.0-7.3) 03/18/21 05:00 Nucleated RBC % Not Reportable 03/18/21 05:00 Seg Neutrophils # 10.8 K/mm3 (1.8-7.7) H 03/10/21 05:14 Seg Neutrophils # Man 33.2 K/mm3 (1.8-7.7) H 03/18/21 05:00 Band Neutrophils # 1.8 K/mm3 03/18/21 05:00 Lymphocytes # (Manual) 0.0 K/mm3 (1.2-5.4) L 03/18/21 05:00 Abs React Lymphs (Man) 0.0 K/mm3 03/18/21 05:00 Monocytes # (Manual) 0.7 K/mm3 (0.0-0.8) 03/18/21 05:00 Eosinophils # (Manual) 0.0 K/mm3 (0.0-0.4) 03/18/21 05:00 Basophils # (Manual) 0.0 K/mm3 (0.0-0.1) 03/18/21 05:00 Metamyelocytes # 0.0 K/mm3 03/18/21 05:00 Myelocytes # 0.0 K/mm3 03/18/21 05:00 Promyelocytes # 0.0 K/mm3 03/18/21 05:00 Blast Cells # 0.0 K/mm3 03/18/21 05:00 Pathologist Review 03/18/21 05:00 WBC Morphology Not Reportable 03/17/21 06:30 Hypersegmented Neuts Not Reportable 03/18/21 05:00 Hyposegmented Neuts Not Reportable 03/18/21 05:00 Hypogranular Neuts Not Reportable 03/18/21 05:00 Smudge Cells Not Reportable 03/18/21 05:00 Toxic Granulation Not Reportable 03/18/21 05:00 Toxic Vacuolation Not Reportable 03/18/21 05:00 Dohle Bodies Not Reportable 03/18/21 05:00 Pelger-Huet Anomaly Not Reportable 03/18/21 05:00 Maritza Rods Not Reportable 03/18/21 05:00 Platelet Estimate Consistent w auto 03/18/21 05:00 Clumped Platelets Not Reportable 03/18/21 05:00 Plt Clumps, EDTA Not Reportable 03/18/21 05:00 Large Platelets Not Reportable 03/18/21 05:00 Giant Platelets Not Reportable 03/18/21 05:00 Platelet Satelliting Not Reportable 03/18/21 05:00 Plt Morphology Comment Not Reportable 03/18/21 05:00 RBC Morphology Not Reportable 03/18/21 05:00 Dimorphic RBCs Not Reportable 03/18/21 05:00 Polychromasia Not Reportable 03/18/21 05:00 Hypochromasia Not Reportable 03/18/21 05:00 Poikilocytosis Not Reportable 03/18/21 05:00 Anisocytosis Few 03/18/21 05:00 Microcytosis Not Reportable 03/18/21 05:00 Macrocytosis Not Reportable 03/18/21 05:00 Spherocytes Not Reportable 03/18/21 05:00 Pappenheimer Bodies Not Reportable 03/18/21 05:00 Sickle Cells Not Reportable 03/18/21 05:00 Target Cells Not Reportable 03/18/21 05:00 Tear Drop Cells Not Reportable 03/18/21 05:00 Ovalocytes Not Reportable 03/18/21 05:00 Helmet Cells Not Reportable 03/18/21 05:00 Gautam-[place] Bodies Not Reportable 03/18/21 05:00 [place] Rings Not Reportable 03/18/21 05:00 H[place] Cells Not Reportable 03/18/21 05:00 Bite Cells Not Reportable 03/18/21 05:00 Crenated Cell Not Reportable 03/18/21 05:00 Elliptocytes Not Reportable 03/18/21 05:00 Acanthocytes (Spur) Not Reportable 03/18/21 05:00 Rouleaux Not Reportable 03/18/21 05:00 Hemoglobin C Crystals Not Reportable 03/18/21 05:00 Schistocytes Not Reportable 03/18/21 05:00 Malaria parasites Not Reportable 03/18/21 05:00 Timoteo Bodies Not Reportable 03/18/21 05:00 Hem Pathologist Commnt Sent to pathology 03/18/21 05:00 PT 14.6 Sec. (12.2-14.9) 03/11/21 21:50 INR 1.09 (0.87-1.13) 03/11/21 21:50 APTT 49.2 Sec. (24.2-36.6) H 03/18/21 10:25 D-Dimer 832.06 ng/mlDDU (0-234) H 03/08/21 15:49 Heparin Anti-Xa Level 0.65 U.I./ml (0.3-0.7) 03/13/21 01:44 ABG pH 7.389 (7.320-7.450) 03/17/21 00:35 POC ABG pCO2 69.0 mmHg (32.0-48.0) H 03/17/21 00:35 ABG pCO2 43.0 mm Hg 03/08/21 15:12 POC ABG pO2 84.0 mmHg (83-108) 03/17/21 00:35 ABG pO2 381.9 mm Hg (80.0-90.0) H 03/08/21 15:12 POC ABG HCO3 40.7 03/17/21 00:35 ABG HCO3 31.2 mmol/L (20.0-26.0) H 03/08/21 15:12 ABG O2 Saturation 95.3 (0-100) 03/17/21 00:35 ABG O2 Content 18.9 (0.0-44) 03/08/21 15:12 POC ABG Base Excess 14.2 03/17/21 00:35 ABG Base Excess 6.9 mmol/L (-2.0-3.0) H 03/08/21 15:12 ABG Hemoglobin 7.2 (12.0-17.5) L 03/17/21 00:35 ABG Oxyhemoglobin 94.3 (94-98) 03/17/21 00:35 ABG Carboxyhemoglobin 1.5 % (0.0-5.0) 03/08/21 15:12 ABG Methemoglobin 0.3 (0.0-1.5) 03/17/21 00:35 ABG Sodium 135.0 mmol/L (136.0-145.0) L 03/17/21 00:35 ABG Potassium 3.7 mmol/L (3.40-4.50) 03/17/21 00:35 ABG Chloride 98.0 mmol/L (98-107) 03/17/21 00:35 ABG Glucose 110 mg/dL (65-95) H 03/17/21 00:35 Oxyhemoglobin 97.5 % (95.0-99.0) 03/08/21 15:12 Carboxyhemoglobin 0.8 (0.5-1.5) 03/17/21 00:35 FiO2 100 % 03/08/21 15:12 FiO2 % 70.0 03/16/21 21:59 Sodium 142 mmol/L (137-145) 03/18/21 05:00 Potassium 3.7 mmol/L (3.6-5.0) 03/18/21 05:00 Chloride 97.0 mmol/L (98-107) L 03/18/21 05:00 Carbon Dioxide 44 mmol/L (22-30) H* 03/18/21 05:00 Anion Gap 5 mmol/L 03/18/21 05:00 BUN 27 mg/dL (9-20) H 03/18/21 05:00 Creatinine 1.1 mg/dL (0.8-1.3) 03/18/21 05:00 Estimated GFR > 60 ml/min 03/18/21 05:00 BUN/Creatinine Ratio 25 % 03/18/21 05:00 Glucose 119 mg/dL (75-100) H 03/18/21 05:00 POC Glucose 110 mg/dL (70-105) H 03/18/21 21:41 Hemoglobin A1c 5.6 % (4-6) 03/09/21 06:18 Lactic Acid 3.40 mmol/L (0.7-2.0) H* 03/08/21 15:49 Calcium 7.3 mg/dL (8.4-10.2) L 03/18/21 05:00 Phosphorus 1.90 mg/dL (2.5-4.5) L 03/18/21 05:00 Magnesium 1.60 mg/dL (1.7-2.3) L 03/18/21 05:00 Ferritin 1373.0 ng/mL (30.0-300.0) H 03/08/21 15:49 Total Bilirubin 1.00 mg/dL (0.1-1.2) 03/18/21 05:00 Direct Bilirubin 0.3 mg/dL (0-0.2) H 03/18/21 05:00 Indirect Bilirubin 0.7 mg/dL 03/18/21 05:00 AST 228 units/L (5-40) H 03/18/21 05:00 ALT 406 units/L (7-56) H 03/18/21 05:00 Alkaline Phosphatase 41 units/L (35-129) 03/18/21 05:00 Ammonia 22.0 umol/L (25-60) L 03/08/21 15:49 Lactate Dehydrogenase 209 units/L (91-180) H 03/08/21 15:49 Total Creatine Kinase 98 units/L (55-170) 03/10/21 05:14 CK-MB (CK-2) 17.8 ng/mL (0.0-4.0) H 03/10/21 05:14 CK-MB (CK-2) Rel Index 18.1 (0-4) H 03/10/21 05:14 Troponin T 0.261 ng/mL (0.00-0.029) H* D 03/12/21 04:40 C-Reactive Protein 24.00 mg/dL (0.00-1.30) H 03/08/21 15:49 Total Protein 4.8 g/dL (6.3-8.2) L 03/18/21 05:00 Albumin 2.4 g/dL (3.9-5) L 03/18/21 05:00 Albumin/Globulin Ratio 1.0 % 03/18/21 05:00 Prealbumin 0.058 g/L (0.200-0.400) L 03/09/21 00:00 Triglycerides 173 mg/dL (2-149) H 03/10/21 05:14 Cholesterol 130 mg/dL (50-199) 03/10/21 05:14 LDL Cholesterol Direct 68 mg/dL (50-130) 03/10/21 05:14 HDL Cholesterol 36 mg/dL (40-59) L 03/10/21 05:14 Cholesterol/HDL Ratio 3.61 % 03/10/21 05:14 Procalcitonin 1.35 ng/mL (<0.15) 03/08/21 15:49 TSH 2.030 mlU/mL (0.270-4.200) 03/08/21 15:49 Arterial Blood Glucose 110 mg/dL (65-95) H 03/17/21 00:35 Arterial Blood Ionized Calcium 4.0 mg/dL (4.6-5.3) L 03/17/21 00:35 Urine Color Maren (Yellow) 03/08/21 16:54 Urine Turbidity Cloudy (Clear) 03/08/21 16:54 Urine pH 5.0 (5.0-7.0) 03/08/21 16:54 Ur Specific Reading 1.019 (1.003-1.030) 03/08/21 16:54 Urine Protein 100 mg/dl mg/dL (Negative) 03/08/21 16:54 Urine Glucose (UA) Neg mg/dL (Negative) 03/08/21 16:54 Urine Ketones Tr mg/dL (Negative) 03/08/21 16:54 Urine Blood Mod (Negative) 03/08/21 16:54 Urine Nitrite Neg (Negative) 03/08/21 16:54 Urine Bilirubin Neg (Negative) 03/08/21 16:54 Urine Urobilinogen < 2.0 mg/dL (<2.0) 03/08/21 16:54 Ur Leukocyte Esterase Neg (Negative) 03/08/21 16:54 Urine WBC (Auto) 2.0 /HPF (0.0-6.0) 03/08/21 16:54 Urine RBC (Auto) 3.0 /HPF (0.0-6.0) 03/08/21 16:54 U Epithel Cells (Auto) 1.0 /HPF (0-13.0) 03/08/21 16:54 Urine Bacteria (Auto) 1+ /HPF (Negative) 03/08/21 16:54 Hyaline Casts 1 /LPF 03/08/21 16:54 Urine Mucus Few /HPF 03/08/21 16:54 Salicylates 5.6 mg/dL (2.8-20.0) 03/08/21 15:49 Acetaminophen 5.0 ug/mL (10.0-30.0) L 03/08/21 15:49 Coronavirus (PCR) Negative (Negative) 03/10/21 Unknown Blood Type B POSITIVE 03/17/21 09:20 Antibody Screen Negative 03/17/21 09:20 Crossmatch See Detail 03/17/21 09:20 Savage/IV: Voiding Method Condom Catheter Active Medications - Current Medications Current Medications: Generic Name Dose Route Start Last Admin Trade Name Freq PRN Reason Stop Dose Admin Acetaminophen 650 mg 03/08/21 21:36 Acetaminophen 325 Mg Tab PO Q4H PRN Pain MILD(1-3)/Fever >100.5/MYERS Hydrocodone Bitart/Acetaminophen 1 each 03/11/21 13:59 Hydrocodone/Acetaminophen 5-325 Mg Tab PO Q6H PRN Pain, Moderate (4-6) Albuterol 2.5 mg 03/15/21 19:28 03/16/21 21:45 Albuterol 2.5 Mg/3 Ml Nebu IH 2.5 mg Q4HRT PRN Administration Shortness Of Breath Lipase/Protease/Amylase 1 each 03/08/21 21:42 Lipase 10,500/Protease 25,000/Amylase 43,750 (Units) Dr Cap FEEDTUBE PRN PRN For Clogged Feeding Tube Arformoterol Tartrate 15 mcg 03/10/21 20:00 03/18/21 09:07 Arformoterol 15 Mcg/2 Ml Nebu IH 15 mcg Q12HRT PRINCESS Administration Aspirin 81 mg 03/10/21 15:00 03/18/21 09:06 Aspirin 81 Mg Tab Chew PO 81 mg QDAY PRINCESS Administration Atorvastatin Calcium 40 mg 03/11/21 22:00 03/17/21 22:06 Atorvastatin 40 Mg Tab PO 40 mg QHS PRINCESS Administration Budesonide 0.5 mg 03/09/21 20:00 03/18/21 09:07 Budesonide 0.5 Mg/2 Ml Nebu IH 0.5 mg Q12HRT PRINCESS Administration Clopidogrel Bisulfate 75 mg 03/12/21 10:00 03/18/21 09:06 Clopidogrel 75 Mg Tab PO 75 mg QDAY PRINCESS Administration Dextrose 50 ml 03/17/21 20:20 Dextrose 50% In Water (25gm) 50 Ml Syringe IV Q30MIN PRN Hypoglycemia Protocol Haloperidol Lactate 5 mg 03/13/21 11:15 03/13/21 11:28 Haloperidol Lactate 5 Mg/1 Ml Inj IV 5 mg Q6H PRN Administration Agitation Dextrose 1,000 mls @ 42 mls/hr 03/15/21 16:00 03/18/21 12:39 D10w IV 42 mls/hr DIRECT PRINCESS Administration Argatroban 250 mg/ Sodium 250 mls @ 1.527 mls/hr 03/18/21 08:00 03/18/21 09:02 Chloride IV 0.5 mcg/kg/min DIRECT PRINCESS 1.527 mls/hr Administration 0.5 MCG/KG/MIN Insulin Human Lispro 0 unit 03/10/21 12:00 03/18/21 17:57 Insulin Lispro 100 Unit/Ml SUB-Q 2 unit Q6HR PRINCESS Administration Protocol Methylprednisolone Sodium Succinate 40 mg 03/18/21 12:00 03/18/21 13:19 Methylprednisolone Sod Succinate 40 Mg/1 Ml Inj IV 40 mg Q24HR PRINCESS Administration Metoclopramide HCl 10 mg 03/08/21 21:36 Metoclopramide 10 Mg/2 Ml Inj IV Q6H PRN Nausea And Vomiting Metoprolol Tartrate 5 mg 03/17/21 16:00 03/18/21 16:58 Metoprolol Tartrate 5 Mg/5 Ml Inj IV 5 mg Q6H PRINCESS Administration Morphine Sulfate 1 mg 03/14/21 17:07 03/16/21 09:35 Morphine 2 Mg/1 Ml Inj IV 1 mg Q4H PRN Administration Pain, Moderate (4-6) Nitroglycerin 0.4 mg 03/16/21 06:00 03/18/21 06:06 Nitroglycerin 0.4 Mg Patch 24hr TD 0.4 mg QDAY@0600 PRINCESS Administration Ondansetron HCl 4 mg 03/08/21 21:36 Ondansetron 4 Mg/2 Ml Inj IV Q3H PRN Nausea And Vomiting Pantoprazole Sodium 40 mg 03/13/21 13:00 03/18/21 09:06 Pantoprazole 40 Mg Inj IV 40 mg BID PRINCESS Administration Simple Syrup 15 ml 03/08/21 21:42 Simple Syrup 15 Ml FEEDTUBE PRN PRN Hypoglycemia Simple Syrup 30 ml 03/08/21 21:42 Simple Syrup 15 Ml FEEDTUBE PRN PRN Hypoglycemia Sodium Bicarbonate 325 mg 03/08/21 21:42 Sodium Bicarbonate 325 Mg Tab FEEDTUBE PRN PRN For Clogged Feeding Tube Sodium Chloride 10 ml 03/08/21 22:00 03/18/21 10:39 Sodium Chloride 0.9% 10 Ml Flush Syringe IV 10 ml BID PRINCESS Administration Sodium Chloride 10 ml 03/08/21 21:36 03/16/21 05:17 Sodium Chloride 0.9% 10 Ml Flush Syringe IV 10 ml PRN PRN Administration LINE FLUSH Sodium Phosphate 250 mg 03/18/21 14:00 03/18/21 13:19 K-Phos Neutral 250 Mg Tab PO 03/19/21 23:59 250 mg QID PRINCESS Administration Nutrition/Malnutrition Assess - Dietary Evaluation Nutrition/Malnutrition Findings: Nutrition Notes Start: 03/09/21 07:48 Freq: Status: Active Protocol: Document 03/18/21 14:12 JEROME (Rec: 03/18/21 14:22 JEROME [id number]) Nutrition Notes Need for Assessment generated from: MD Order Initial or Follow up Reassessment Current Diagnosis Sepsis,Respiratory Failure Other Pertinent Diagnosis pneu, COVID PUI, anemia, AMS Current Diet Cardiac Labs/Tests Phos 1.9 Mg 1.6 POC BG 60-143 Pertinent Medications K-Phos 250 mg Solu Medrol D10w at 42ml/hr Mg Sulfate Na Phosphate Height 5 ft 5 in Weight 50.9 kg [place] Body Weight (kg) 61.81 BMI 18.6 Weight Status Underweight Subjective/Other Information MD consult for TF. TF not recommended d/t risk of aspiration on bipap. PPN recommeneded as pt at nutritonal risk. Pt with blackish stools yesterday. Burn Absent Trauma Absent Current % PO Negligible Minimum of two criteria Yes Energy Intake (severe) < or equal to 50% Estimated Energy Requirement > or equal to 5 days Body Fat Depletion Mild depletion (non-severe) #2 Nutrition Diagnosis Malnutrition Etiology acute illness As Evidenced by Signs and Symptoms <50% of EER in 5 days, fat wasting #1 Nutrition Diagnosis Inadequate oral intake As Evidenced by Signs and Symptoms pt not able to eat/drink Diagnosis Progress(for reassessment Worsened documentation) Is patient on ventilator? No Is Patient Ambulatory and/or Out of Bed No REE-([facility]-confined to bed) 5671.100 Calculation Used for Recommendations [facility] Additional Notes Protein: (1-1.2g/kg) 61-62g Fluid: 1 ml/kcal or per MD Nutrition Intervention Change Diet Order: Start TF Nutrition Support: Osmolite 1.5 at 40 ml/hr Flush 100 ml q4h or per MD Kcal 1,440 Protein (gm) 60 Fluid (mL) 732 Goal #1 Meet at least 75% of energy and protein needs via TF Anticipated Discharge Needs: cardiac Follow-Up By: 03/20/21 Additional Comments F/u: TF start/tolerance, respiratory status
--- NOTE | 2021-03-18 19:10 | XRay Report ---
ABDOMEN 1 VIEW(S) INDICATION / CLINICAL INFORMATION: ngt placement verification. COMPARISON: 2 days prior FINDINGS: TUBES / LINES: Previously seen esophagogastric tube has been removed. There has been interval placeme nt of a weighted enteric feeding tube, the tip projects right of midline either within the gastric an trum or duodenal bulb. BOWEL GAS PATTERN: No significant abnormality. FREE AIR / EXTRALUMINAL GAS: None seen. ADDITIONAL FINDINGS: No significant additional findings. IMPRESSION: 1. Feeding tube tip projects right of midline in the upper abdomen, either within the gastric antrum or duodenal bulb. Signer Name: Chadd Garner MD Signed: 03/18/2021 7:06 PM Workstation Name: [id number]
[2021-03-19 00:46] LABS: Hematocrit 24.3 % (35.5-45.6)
[2021-03-19] MEDS: ARFORMOTEROL 15 MCG/2 ML NEBU IH SCH ×2 (02:00→08:30)
[2021-03-19] MEDS: METOPROLOL TARTRATE 5 MG/5 ML INJ IV SCH ×4 (03:58→22:39)
[2021-03-19] MEDS: ALBUTEROL 2.5 MG/3 ML NEBU IH PRN (05:28)
[2021-03-19] MEDS: NITROGLYCERIN 0.4 MG PATCH 24HR TD SCH (06:06)
[2021-03-19] MEDS: INSULIN LISPRO 100 UNIT/ML SUB-Q SCH ×2 (06:10→21:46)
[2021-03-19] MEDS: BUDESONIDE 0.5 MG/2 ML NEBU IH SCH ×2 (08:30→20:00)
--- NOTE | 2021-03-19 09:03 | Progress Note ---
Assessment and Plan If patient continues to improve, we will plan on revascularize his right leg at the first part of next week. Subjective Date of service: 03/19/21 Principal diagnosis: Respiratory distress, VT, Pseudoaneurysm Interval history: Patient continues to improve although slowly. His ischemic changes now involved predominantly the phalanges of his right foot with a coolish right foot. Patient on facemask at time of examination. Objective - Constitutional Vitals: Vital Signs - 12hr 03/18/21 03/18/21 03/18/21 21:01 21:31 22:00 Temperature Pulse Rate 85 93 H Pulse Rate [ Bilateral Throughout] Respiratory 16 25 H Rate Respiratory Rate [Bilateral Throughout] Blood Pressure 171/69 183/69 O2 Sat by Pulse 96 99 95 Oximetry 03/18/21 03/18/21 03/18/21 22:01 22:18 22:31 Temperature Pulse Rate 87 85 76 Pulse Rate [ Bilateral Throughout] Respiratory 16 17 Rate Respiratory Rate [Bilateral Throughout] Blood Pressure 164/56 144/70 117/95 O2 Sat by Pulse 100 100 Oximetry 03/18/21 03/18/21 03/18/21 23:01 23:31 23:54 Temperature 98.4 F Pulse Rate 79 81 Pulse Rate [ Bilateral Throughout] Respiratory 16 17 Rate Respiratory Rate [Bilateral Throughout] Blood Pressure 158/63 149/72 O2 Sat by Pulse 100 99 Oximetry 03/19/21 03/19/21 03/19/21 00:00 00:01 00:31 Temperature Pulse Rate 81 82 84 Pulse Rate [ Bilateral Throughout] Respiratory 20 22 16 Rate Respiratory Rate [Bilateral Throughout] Blood Pressure 141/43 182/60 O2 Sat by Pulse 100 96 100 Oximetry 03/19/21 03/19/21 03/19/21 01:01 01:31 02:01 Temperature Pulse Rate 89 89 90 Pulse Rate [ Bilateral Throughout] Respiratory 18 21 26 H Rate Respiratory Rate [Bilateral Throughout] Blood Pressure 189/75 185/152 168/65 O2 Sat by Pulse 94 94 89 Oximetry 03/19/21 03/19/21 03/19/21 02:31 03:00 03:31 Temperature Pulse Rate 100 H 79 85 Pulse Rate [ Bilateral Throughout] Respiratory 18 16 15 Rate Respiratory Rate [Bilateral Throughout] Blood Pressure 157/32 119/53 118/77 O2 Sat by Pulse 100 99 99 Oximetry 03/19/21 03/19/21 03/19/21 03:58 04:00 04:01 Temperature 97.6 F Pulse Rate 82 79 86 Pulse Rate [ Bilateral Throughout] Respiratory 20 14 Rate Respiratory Rate [Bilateral Throughout] Blood Pressure 110/55 164/48 O2 Sat by Pulse 100 99 Oximetry 03/19/21 03/19/21 03/19/21 04:31 05:00 05:28 Temperature Pulse Rate 75 76 Pulse Rate [ 88 Bilateral Throughout] Respiratory 15 16 Rate Respiratory 20 Rate [Bilateral Throughout] Blood Pressure 128/32 130/44 O2 Sat by Pulse 99 100 Oximetry 03/19/21 03/19/21 03/19/21 05:30 06:00 06:06 Temperature Pulse Rate 84 83 81 Pulse Rate [ Bilateral Throughout] Respiratory 18 17 Rate Respiratory Rate [Bilateral Throughout] Blood Pressure 129/34 117/45 117/45 O2 Sat by Pulse 88 100 Oximetry 03/19/21 03/19/21 06:31 07:00 Temperature Pulse Rate 82 81 Pulse Rate [ Bilateral Throughout] Respiratory 13 15 Rate Respiratory Rate [Bilateral Throughout] Blood Pressure 113/38 129/39 O2 Sat by Pulse 100 100 Oximetry General appearance: Present: no acute distress - EENT Eyes: EOM intact ENT: hearing intact - Respiratory Respiratory effort: other (Facemask, 100% O2 sat) Extremities: abnormal (Ischemic changes to the distal phalanges of the right foot with bluish discoloration) - Gastrointestinal General gastrointestinal: Present: deferred Rectal Exam: deferred - Genitourinary Male genitourinary: deferred - Labs CBC & Chem 7: 03/19/21 00:17 03/18/21 05:00 Labs: Abnormal lab results 03/18/21 03/18/21 03/18/21 Range/Units 10:25 10:25 12:04 Hgb 7.8 L (11.8-15.2) gm/dl Hct 23.3 L (35.5-45.6) % APTT 49.2 H (24.2-36.6) Sec. POC Glucose 143 H (70-105) mg/dL 03/18/21 03/18/21 03/18/21 Range/Units 17:28 21:15 21:41 Hgb (11.8-15.2) gm/dl Hct (35.5-45.6) % APTT (24.2-36.6) Sec. POC Glucose 172 H 37 L 110 H (70-105) mg/dL 03/19/21 03/19/21 03/19/21 Range/Units 00:17 00:17 04:22 Hgb 8.0 L (11.8-15.2) gm/dl Hct 24.3 L (35.5-45.6) % APTT 67.9 H* (24.2-36.6) Sec. POC Glucose 107 H (70-105) mg/dL 03/19/21 Range/Units 08:39 Hgb (11.8-15.2) gm/dl Hct (35.5-45.6) % APTT (24.2-36.6) Sec. POC Glucose 120 H (70-105) mg/dL Medications & Allergies - Medications Allergies/Adverse Reactions: Allergies Unable to Assess Allergy (Verified 03/08/21 14:37) AMS Active Medications: Generic Name Dose Route Start Last Admin Trade Name Freq PRN Reason Stop Dose Admin Acetaminophen 650 mg 03/08/21 21:36 Acetaminophen 325 Mg Tab PO Q4H PRN Pain MILD(1-3)/Fever >100.5/MYERS Hydrocodone Bitart/Acetaminophen 1 each 03/11/21 13:59 Hydrocodone/Acetaminophen 5-325 Mg Tab PO Q6H PRN Pain, Moderate (4-6) Albuterol 2.5 mg 03/15/21 19:28 03/19/21 05:28 Albuterol 2.5 Mg/3 Ml Nebu IH 2.5 mg Q4HRT PRN Administration Shortness Of Breath Lipase/Protease/Amylase 1 each 03/08/21 21:42 Lipase 10,500/Protease 25,000/Amylase 43,750 (Units) Dr Johnson FEEDTUBE PRN PRN For Clogged Feeding Tube Arformoterol Tartrate 15 mcg 03/10/21 20:00 03/18/21 23:00 Arformoterol 15 Mcg/2 Ml Nebu IH Not Given Q12HRT PRINCESS Aspirin 81 mg 03/10/21 15:00 03/18/21 09:06 Aspirin 81 Mg Tab Chew PO 81 mg QDAY PRINCESS Administration Atorvastatin Calcium 40 mg 03/11/21 22:00 03/18/21 22:21 Atorvastatin 40 Mg Tab PO 40 mg QHS PRINCESS Administration Budesonide 0.5 mg 03/09/21 20:00 03/18/21 23:00 Budesonide 0.5 Mg/2 Ml Nebu IH Not Given Q12HRT PRINCESS Clopidogrel Bisulfate 75 mg 03/12/21 10:00 03/18/21 09:06 Clopidogrel 75 Mg Tab PO 75 mg QDAY PRINCESS Administration Dextrose 50 ml 03/17/21 20:20 Dextrose 50% In Water (25gm) 50 Ml Syringe IV Q30MIN PRN Hypoglycemia Protocol Haloperidol Lactate 5 mg 03/13/21 11:15 03/13/21 11:28 Haloperidol Lactate 5 Mg/1 Ml Inj IV 5 mg Q6H PRN Administration Agitation Dextrose 1,000 mls @ 42 mls/hr 03/15/21 16:00 03/18/21 12:39 D10w IV 42 mls/hr DIRECT PRINCESS Administration Argatroban 250 mg/ Sodium 250 mls @ 1.527 mls/hr 03/18/21 08:00 03/18/21 09:0 2 Chloride IV 0.5 mcg/kg/min DIRECT PRINCESS 1.527 mls/hr Administration 0.5 MCG/KG/MIN Insulin Human Lispro 0 unit 03/10/21 12:00 03/19/21 06:10 Insulin Lispro 100 Unit/Ml SUB-Q Not Given Q6HR [facility] Protocol Methylprednisolone Sodium Succinate 40 mg 03/18/21 12:00 03/18/21 13:19 Methylprednisolone Sod Succinate 40 Mg/1 Ml Inj IV 40 mg Q24HR PRINCESS Administration Metoclopramide HCl 10 mg 03/08/21 21:36 Metoclopramide 10 Mg/2 Ml Inj IV Q6H PRN Nausea And Vomiting Metoprolol Tartrate 5 mg 03/17/21 16:00 03/19/21 03:58 Metoprolol Tartrate 5 Mg/5 Ml Inj IV 5 mg Q6H PRINCESS Administration Morphine Sulfate 1 mg 03/14/21 17:07 03/16/21 09:35 Morphine 2 Mg/1 Ml Inj IV 1 mg Q4H PRN Administration Pain, Moderate (4-6) Nitroglycerin 0.4 mg 03/16/21 06:00 03/19/21 06:06 Nitroglycerin 0.4 Mg Patch 24hr TD 0.4 mg QDAY@0600 PRINCESS Administration Ondansetron HCl 4 mg 03/08/21 21:36 Ondansetron 4 Mg/2 Ml Inj IV Q3H PRN Nausea And Vomiting Pantoprazole Sodium 40 mg 03/13/21 13:00 03/18/21 22:19 Pantoprazole 40 Mg Inj IV 40 mg BID PRINCESS Administration Simple Syrup 15 ml 03/08/21 21:42 Simple Syrup 15 Ml FEEDTUBE PRN PRN Hypoglycemia Simple Syrup 30 ml 03/08/21 21:42 Simple Syrup 15 Ml FEEDTUBE PRN PRN Hypoglycemia Sodium Bicarbonate 325 mg 03/08/21 21:42 Sodium Bicarbonate 325 Mg Tab FEEDTUBE PRN PRN For Clogged Feeding Tube Sodium Chloride 10 ml 03/08/21 22:00 03/18/21 22:19 Sodium Chloride 0.9% 10 Ml Flush Syringe IV 10 ml BID PRINCESS Administration Sodium Chloride 10 ml 03/08/21 21:36 03/16/21 05:17 Sodium Chloride 0.9% 10 Ml Flush Syringe IV 10 ml PRN PRN Administration LINE FLUSH Sodium Phosphate 250 mg 03/18/21 14:00 03/18/21 23:08 K-Phos Neutral 250 Mg Tab PO 03/19/21 23:59 Not Given QID [facility] HEART Score - HEART Score Age: > 65 Risk factors: No known risk factors Troponin: Troponin T 0.261 ng/mL (0.00-0.029) H* D 03/12/21 04:40 Troponin: < normal limit - Critical Actions Critical Actions: 0-3 pts:0.9-1.7%risk of adverse cardiac event.Candidate for discharge
--- NOTE | 2021-03-19 10:01 | Progress Note ---
Assessment and Plan While hospitalized suffered an Acute ST elevation myocardial infarction complicated by ventricular fibrillation arrest; on oral amiodarone. s/p PCI of the mid LAD using drug-eluting stent; on plavix and aspirin. LVEF 35-40% by echo Acute respiratory failure COPD exacerbation Altered mental status Hx of COPD Bilateral PAD Continue optimal medical therapy for coronary artery disease, and underlying ischemic cardiomyopathy. Otherwise, conservative cardiac management. Subjective Date of service: 03/19/21 Principal diagnosis: Respiratory distress, CA, Pseudoaneurysm Interval history: Resting in bed and appears comfortable. Venturi mask is in place. No cardiac events reported. Objective Vital Signs Temp Pulse Pulse Resp Resp BP Pulse Ox 03/19/21 09:39 96 03/19/21 08:00 89 20 03/19/21 07:00 81 15 129/39 100 03/19/21 06:31 82 13 113/38 100 03/19/21 06:06 81 117/45 03/19/21 06:00 83 17 117/45 100 03/19/21 05:30 84 18 129/34 88 03/19/21 05:28 88 20 03/19/21 05:00 76 16 130/44 100 03/19/21 04:31 75 15 128/32 99 03/19/21 04:01 86 14 164/48 99 03/19/21 04:00 97.6 F 79 20 100 03/19/21 03:58 82 110/55 03/19/21 03:31 85 15 118/77 99 03/19/21 03:00 79 16 119/53 99 03/19/21 02:31 100 H 18 157/32 100 03/19/21 02:01 90 26 H 168/65 89 03/19/21 01:31 89 21 185/152 94 03/19/21 01:01 89 18 189/75 94 03/19/21 00:31 84 16 182/60 100 03/19/21 00:01 82 22 141/43 96 03/19/21 00:00 81 20 100 03/18/21 23:54 98.4 F 03/18/21 23:31 81 17 149/72 99 03/18/21 23:01 79 16 158/63 100 03/18/21 22:31 76 17 117/95 100 03/18/21 22:18 85 144/70 03/18/21 22:01 87 16 164/56 100 03/18/21 22:00 95 03/18/21 21:31 93 H 25 H 183/69 99 03/18/21 21:01 85 16 171/69 96 03/18/21 20:31 87 20 156/100 97 03/18/21 20:01 85 16 164/80 97 03/18/21 20:00 98.0 F 81 20 100 03/18/21 19:31 89 14 84/33 96 03/18/21 19:00 79 17 136/63 100 03/18/21 18:33 77 16 135/56 100 03/18/21 18:30 77 16 135/56 100 03/18/21 18:00 87 15 145/69 100 03/18/21 17:30 87 18 139/59 98 03/18/21 17:00 86 13 147/51 100 03/18/21 16:58 85 143/68 03/18/21 16:30 86 18 107/59 100 03/18/21 16:21 100 03/18/21 16:01 88 20 74/35 100 03/18/21 16:00 98.0 F 87 20 100 03/18/21 15:31 89 19 96/64 64 L 03/18/21 15:00 88 19 161/61 86 03/18/21 14:31 85 16 149/59 79 L 03/18/21 14:00 86 16 153/68 89 03/18/21 13:31 88 14 135/99 92 03/18/21 13:01 86 14 106/56 90 03/18/21 12:31 90 18 116/89 88 03/18/21 12:01 84 22 153/61 96 03/18/21 12:00 84 22 96 03/18/21 11:31 80 15 133/54 98 03/18/21 11:17 94 03/18/21 11:01 81 13 142/65 97 03/18/21 10:31 156/57 96 - Physical Examination General: No Apparent Distress HEENT: Positive: PERRL Neck: Positive: neck supple Cardiac: Positive: Reg Rate and Rhythm Lungs: Positive: Decreased Breath Sounds Neuro: Positive: Weakness Extremities: Absent: edema - Labs and Meds Coagulation 03/18/21 03/19/21 Range/Units 10:25 00:17 APTT 49.2 H 67.9 H* (24.2-36.6) Sec. CBC 03/18/21 03/19/21 Range/Units 10:25 00:17 Hgb 7.8 L 8.0 L (11.8-15.2) gm/dl Hct 23.3 L 24.3 L (35.5-45.6) %
[2021-03-19] MEDS: K-PHOS NEUTRAL 250 MG TAB PO SCH ×3 (10:16→22:38)
[2021-03-19] MEDS: ASPIRIN 81 MG TAB CHEW PO SCH (10:16)
[2021-03-19] MEDS: CLOPIDOGREL 75 MG TAB PO SCH (10:17)
[2021-03-19] MEDS: PANTOPRAZOLE 40 MG INJ IV SCH ×2 (10:40→22:38)
[2021-03-19] MEDS: methylPREDNISolone Sod Succinate 40 MG/1 ML INJ IV SCH (10:40)
[2021-03-19 10:47] LABS: Hematocrit 23.4 % (35.5-45.6); Hemoglobin 7.7 gm/dl (11.8-15.2); Mean Corpuscular HGB Conc 33 % (32-34); Mean Corpuscular Volume 90 fl (84-94); Red Blood Count 2.59 M/mm3 (3.65-5.03); Red Cell Distribution Width 16.8 % (13.2-15.2)
[2021-03-19 10:49] LABS: Platelet Count 71 K/mm3 (140-440)
[2021-03-19 10:50] LABS: BUN/Creatinine Ratio 23; Blood Urea Nitrogen 21 mg/dL (9-20); Calcium 7.7 mg/dL (8.4-10.2); Hemolysis Index 5
[2021-03-19] MEDS ORDERED: FUROSEMIDE 20 MG/2 ML INJ IV ONE (11:00)
--- NOTE | 2021-03-19 11:28 | Progress Note ---
Assessment and Plan 65 y/o male with acute respiratory, exact etiology unknown 03/19/21: No evidence of bleeding and H/H has been stable. Continue argatroban. Vascular plans for revascularization on next week. Now that on feeds and tolerating will stop D10. Continue q4 FSBS for the next 24 hours then reassess tomorrow. Lasix 20mg IV x1 today. Desats at night maybe from central sleep apnea given low EF. Will order bipap QHS and hopeful diuresis will help with this too. Continue bronchodilator therapy. Steroids are per heme. Will continue to follow. 03/18/21: Spoke with Heme over the phone, agree with current plan in regards to the lowest dose of argatroban. I have increased the frequency of H/H checks to q6 and plan is if the HgB drops more than 2 points to stop the anticoagulation. He is also not eating, so he is currently on D10. Will attempt to place dobb- josep and tube feeds. Continue q4 hour FSBS to make sure severe hypoglycemia does not occur. Wean FiO2 for sats >88%. Continue pulmicort and brovana therapy. May need nicotine patch. 03/13/21: Clinically appears stable. HgB is down to 9.1, came in at 13 but this may heme concentrated. Appears stable for transfer]. Medical therapy for CAD. Will change steroids to 40q8 03/12/21: Clinically appears stable. Will discuss with cards but I feel patient is stable for step down vs tele. Likely no tele beds available but could down grade and keep in unit. Will discuss and make a decision later today. 03/11/21: Follow up cath results. Monitor volume status. Maintain potassium of 4 and mag of 2. monitor renal function. Goal directed medical therapy. Wean FiO2 for sats >88% down to baseline of 2 liters NC. Will continue to follow. Smoking cessation. 03/10/21: Sedation stopped and now discontinued from OCT. Suspect that when patient starts waking up he can be extubated, no matter what time this is, even if it is the supervisor firearms. The repeat EKG still shows some ST elevation in V3 but T waves have inverted V4, V5 and V6. Per the tech, the tech from yesterday did an EKG off the wrong order but the EKG showing ST elevations was not shown to a physician. Will order Troponin now and obtain 2D echo once COVID results are back. At this point, pending these labs will determine cardiology consult. As stated before, hemodynamically the patient is stable. Tech needs order for EKG but as I explained, not able to back date an order and there was not an order for that EKG to begin with. Very difficult case in regards to EKG. Will speak with risk about this. 1. Continue supportive measures 2. CXR is stable and IJ in good position 3. Per Nurse, patient has COPD and chronic respiratory failure and is still smoking. Guarded prognosis Subjective Date of service: 03/19/21 Principal diagnosis: Respiratory distress, OK, Pseudoaneurysm Interval history: Had to be placed back on Venti Mask yesterday. DH in and tube feeds going. Reviewed vascular and cards notes. Objective Vital Signs - 12hr 03/18/21 03/18/21 03/19/21 23:31 23:54 00:00 Temperature 98.4 F Pulse Rate 81 81 Pulse Rate [ Bilateral Throughout] Respiratory 17 20 Rate Respiratory Rate [Bilateral Throughout] Blood Pressure 149/72 O2 Sat by Pulse 99 100 Oximetry 03/19/21 03/19/21 03/19/21 00:01 00:31 01:01 Temperature Pulse Rate 82 84 89 Pulse Rate [ Bilateral Throughout] Respiratory 22 16 18 Rate Respiratory Rate [Bilateral Throughout] Blood Pressure 141/43 182/60 189/75 O2 Sat by Pulse 96 100 94 Oximetry 03/19/21 03/19/21 03/19/21 01:31 02:01 02:31 Temperature Pulse Rate 89 90 100 H Pulse Rate [ Bilateral Throughout] Respiratory 21 26 H 18 Rate Respiratory Rate [Bilateral Throughout] Blood Pressure 185/152 168/65 157/32 O2 Sat by Pulse 94 89 100 Oximetry 03/19/21 03/19/21 03/19/21 03:00 03:31 03:58 Temperature Pulse Rate 79 85 82 Pulse Rate [ Bilateral Throughout] Respiratory 16 15 Rate Respiratory Rate [Bilateral Throughout] Blood Pressure 119/53 118/77 110/55 O2 Sat by Pulse 99 99 Oximetry 03/19/21 03/19/21 03/19/21 04:00 04:01 04:31 Temperature 97.6 F Pulse Rate 79 86 75 Pulse Rate [ Bilateral Throughout] Respiratory 20 14 15 Rate Respiratory Rate [Bilateral Throughout] Blood Pressure 164/48 128/32 O2 Sat by Pulse 100 99 99 Oximetry 03/19/21 03/19/21 03/19/21 05:00 05:28 05:30 Temperature Pulse Rate 76 84 Pulse Rate [ 88 Bilateral Throughout] Respiratory 16 18 Rate Respiratory 20 Rate [Bilateral Throughout] Blood Pressure 130/44 129/34 O2 Sat by Pulse 100 88 Oximetry 03/19/21 03/19/21 03/19/21 06:00 06:06 06:31 Temperature Pulse Rate 83 81 82 Pulse Rate [ Bilateral Throughout] Respiratory 17 13 Rate Respiratory Rate [Bilateral Throughout] Blood Pressure 117/45 117/45 113/38 O2 Sat by Pulse 100 100 Oximetry 03/19/21 03/19/21 03/19/21 07:00 08:00 09:39 Temperature 98.2 F Pulse Rate 81 Pulse Rate [ 89 Bilateral Throughout] Respiratory 15 Rate Respiratory 20 Rate [Bilateral Throughout] Blood Pressure 129/39 O2 Sat by Pulse 100 96 Oximetry 03/19/21 10:16 Temperature Pulse Rate 89 Pulse Rate [ Bilateral Throughout] Respiratory Rate Respiratory Rate [Bilateral Throughout] Blood Pressure 124/42 O2 Sat by Pulse Oximetry Constitutional: lethargic, other (but arousable) Eyes: non-icteric ENT: other (orally intubated and sedated.) Neck: supple Effort: normal Ascultation: Bilateral: diminished breath sounds Cardiovascular: regular rate and rhythm Gastrointestinal: normoactive bowel sounds, soft Extremities: no edema, pink and warm Neurologic: unable to assess CBC and BMP: 03/19/21 09:53 03/19/21 09:53 ABG, PT/INR, D-dimer: ABG ABG pH 7.389 (7.320-7.450) 03/17/21 00:35 POC ABG pCO2 69.0 mmHg (32.0-48.0) H 03/17/21 00:35 ABG pCO2 43.0 mm Hg 03/08/21 15:12 POC ABG pO2 84.0 mmHg (83-108) 03/17/21 00:35 ABG pO2 381.9 mm Hg (80.0-90.0) H 03/08/21 15:12 POC ABG HCO3 40.7 03/17/21 00:35 ABG O2 Saturation 95.3 (0-100) 03/17/21 00:35 PT/INR, D-dimer PT 14.6 Sec. (12.2-14.9) 03/11/21 21:50 INR 1.09 (0.87-1.13) 03/11/21 21:50 D-Dimer 832.06 ng/mlDDU (0-234) H 03/08/21 15:49 Abnormal lab findings: Abnormal Labs 03/08/21 03/08/21 03/08/21 15:12 15:49 15:49 WBC RBC Hgb Hct MCV 95 H RDW 12.8 L Plt Count Lymph % (Auto) 5.1 L [place] % (Auto) 8.6 H Lymph # (Auto) 0.4 L [place] # (Auto) Seg Neutrophils % 86.1 H Seg Neuts % (Manual) Lymphocytes % (Manual) Seg Neutrophils # Seg Neutrophils # Man Lymphocytes # (Manual) APTT 37.1 H D-Dimer 832.06 H ABG pH 7.478 H POC ABG pCO2 POC ABG pO2 ABG pO2 381.9 H ABG HCO3 31.2 H ABG O2 Saturation 99.6 H ABG Base Excess 6.9 H ABG Hemoglobin 13.0 L ABG Oxyhemoglobin ABG Sodium ABG Potassium ABG Chloride ABG Glucose Carboxyhemoglobin Sodium Potassium Chloride Carbon Dioxide BUN Creatinine Glucose POC Glucose Lactic Acid Calcium Phosphorus Magnesium Ferritin Direct Bilirubin AST ALT Ammonia Lactate Dehydrogenase Total Creatine Kinase CK-MB (CK-2) CK-MB (CK-2) Rel Index Troponin T C-Reactive Protein Total Protein Albumin Prealbumin Triglycerides HDL Cholesterol Arterial Blood Glucose Arterial Blood Ionized Calcium Acetaminophen Crossmatch 03/08/21 03/08/21 03/08/21 15:49 15:49 15:49 WBC RBC Hgb Hct MCV RDW Plt Count Lymph % (Auto) [place] % (Auto) Lymph # (Auto) [place] # (Auto) Seg Neutrophils % Seg Neuts % (Manual) Lymphocytes % (Manual) Seg Neutrophils # Seg Neutrophils # Man Lymphocytes # (Manual) APTT D-Dimer ABG pH POC ABG pCO2 POC ABG pO2 ABG pO2 ABG HCO3 ABG O2 Saturation ABG Base Excess ABG Hemoglobin ABG Oxyhemoglobin ABG Sodium ABG Potassium ABG Chloride ABG Glucose Carboxyhemoglobin Sodium 134 L Potassium Chloride 89.7 L Carbon Dioxide 32 H BUN 47 H Creatinine Glucose 150 H POC Glucose Lactic Acid Calcium Phosphorus Magnesium Ferritin Direct Bilirubin AST ALT Ammonia 22.0 L Lactate Dehydrogenase Total Creatine Kinase 52 L CK-MB (CK-2) CK-MB (CK-2) Rel Index Troponin T C-Reactive Protein Total Protein Albumin 3.2 L Prealbumin Triglycerides HDL Cholesterol Arterial Blood Glucose Arterial Blood Ionized Calcium Acetaminophen Crossmatch 03/08/21 03/08/21 03/08/21 15:49 15:49 15:49 WBC RBC Hgb Hct MCV RDW Plt Count Lymph % (Auto) [place] % (Auto) Lymph # (Auto) [place] # (Auto) Seg Neutrophils % Seg Neuts % (Manual) Lymphocytes % (Manual) Seg Neutrophils # Seg Neutrophils # Man Lymphocytes # (Manual) APTT D-Dimer ABG pH POC ABG pCO2 POC ABG pO2 ABG pO2 ABG HCO3 ABG O2 Saturation ABG Base Excess ABG Hemoglobin ABG Oxyhemoglobin ABG Sodium ABG Potassium ABG Chloride ABG Glucose Carboxyhemoglobin Sodium Potassium Chloride Carbon Dioxide BUN Creatinine Glucose 150 H POC Glucose Lactic Acid 3.40 H* Calcium Phosphorus Magnesium Ferritin Direct Bilirubin AST ALT Ammonia Lactate Dehydrogenase 209 H Total Creatine Kinase CK-MB (CK-2) CK-MB (CK-2) Rel Index Troponin T C-Reactive Protein 24.00 H Total Protein Albumin Prealbumin Triglycerides HDL Cholesterol Arterial Blood Glucose Arterial Blood Ionized Calcium Acetaminophen 5.0 L Crossmatch 03/08/21 03/08/21 03/09/21 15:49 23:27 00:00 WBC RBC Hgb Hct MCV RDW Plt Count Lymph % (Auto) [place] % (Auto) Lymph # (Auto) [place] # (Auto) Seg Neutrophils % Seg Neuts % (Manual) Lymphocytes % (Manual) Seg Neutrophils # Seg Neutrophils # Man Lymphocytes # (Manual) APTT D-Dimer ABG pH POC ABG pCO2 POC ABG pO2 ABG pO2 ABG HCO3 ABG O2 Saturation ABG Base Excess ABG Hemoglobin ABG Oxyhemoglobin ABG Sodium ABG Potassium ABG Chloride ABG Glucose Carboxyhemoglobin Sodium Potassium Chloride Carbon Dioxide BUN Creatinine Glucose POC Glucose 185 H Lactic Acid Calcium Phosphorus Magnesium Ferritin 1373.0 H Direct Bilirubin AST ALT Ammonia Lactate Dehydrogenase Total Creatine Kinase CK-MB (CK-2) CK-MB (CK-2) Rel Index Troponin T C-Reactive Protein Total Protein Albumin Prealbumin 0.058 L Triglycerides HDL Cholesterol Arterial Blood Glucose Arterial Blood Ionized Calcium Acetaminophen Crossmatch 08/09/2803/09/21 03/09/21 05:11 06:18 06:18 WBC RBC 3.50 L Hgb 10.8 L Hct 32.8 L D MCV RDW 13.1 L Plt Count 111 L Lymph % (Auto) 9.9 L [place] % (Auto) 9.2 H Lymph # (Auto) 0.5 L [place] # (Auto) Seg Neutrophils % 80.4 H Seg Neuts % (Manual) Lymphocytes % (Manual) Seg Neutrophils # Seg Neutrophils # Man Lymphocytes # (Manual) APTT D-Dimer ABG pH POC ABG pCO2 POC ABG pO2 ABG pO2 ABG HCO3 ABG O2 Saturation ABG Base Excess ABG Hemoglobin ABG Oxyhemoglobin ABG Sodium ABG Potassium ABG Chloride ABG Glucose Carboxyhemoglobin Sodium 135 L Potassium 5.3 H Chloride Carbon Dioxide BUN 46 H Creatinine Glucose 178 H POC Glucose 183 H Lactic Acid Calcium 8.2 L Phosphorus Magnesium Ferritin Direct Bilirubin AST ALT Ammonia Lactate Dehydrogenase Total Creatine Kinase CK-MB (CK-2) CK-MB (CK-2) Rel Index Troponin T C-Reactive Protein Total Protein 6.1 L Albumin 2.4 L Prealbumin Triglycerides HDL Cholesterol Arterial Blood Glucose Arterial Blood Ionized Calcium Acetaminophen Crossmatch 03/09/21 03/09/21 03/09/21 07:40 11:39 18:09 WBC RBC Hgb Hct MCV RDW Plt Count Lymph % (Auto) [place] % (Auto) Lymph # (Auto) [place] # (Auto) Seg Neutrophils % Seg Neuts % (Manual) Lymphocytes % (Manual) Seg Neutrophils # Seg Neutrophils # Man Lymphocytes # (Manual) APTT D-Dimer ABG pH 7.485 H POC ABG pCO2 POC ABG pO2 179.1 H ABG pO2 ABG HCO3 ABG O2 Saturation ABG Base Excess ABG Hemoglobin 10.8 L ABG Oxyhemoglobin 99.1 H ABG Sodium 133.2 L ABG Potassium ABG Chloride ABG Glucose 175 H Carboxyhemoglobin 0 L Sodium Potassium Chloride Carbon Dioxide BUN Creatinine Glucose POC Glucose 165 H 167 H Lactic Acid Calcium Phosphorus Magnesium Ferritin Direct Bilirubin AST ALT Ammonia Lactate Dehydrogenase Total Creatine Kinase CK-MB (CK-2) CK-MB (CK-2) Rel Index Troponin T C-Reactive Protein Total Protein Albumin Prealbumin Triglycerides HDL Cholesterol Arterial Blood Glucose 175 H Arterial Blood Ionized Calcium 4.3 L Acetaminophen Crossmatch 03/09/21 03/10/2103/10/21 23:53 02:59 05:14 WBC 12.0 H RBC Hgb 11.7 L Hct MCV 95 H RDW Plt Count Lymph % (Auto) 2.6 L [place] % (Auto) 7.5 H Lymph # (Auto) 0.3 L [place] # (Auto) 0.9 H Seg Neutrophils % 89.8 H Seg Neuts % (Manual) Lymphocytes % (Manual) Seg Neutrophils # 10.8 H Seg Neutrophils # Man Lymphocytes # (Manual) APTT D-Dimer ABG pH POC ABG pCO2 POC ABG pO2 ABG pO2 ABG HCO3 ABG O2 Saturation ABG Base Excess ABG Hemoglobin 11.9 L ABG Oxyhemoglobin ABG Sodium ABG Potassium ABG Chloride 108.0 H ABG Glucose 232 H Carboxyhemoglobin 0.3 L Sodium Potassium Chloride Carbon Dioxide BUN Creatinine Glucose POC Glucose 210 H Lactic Acid Calcium Phosphorus Magnesium Ferritin Direct Bilirubin AST ALT Ammonia Lactate Dehydrogenase Total Creatine Kinase CK-MB (CK-2) CK-MB (CK-2) Rel Index Troponin T C-Reactive Protein Total Protein Albumin Prealbumin Triglycerides HDL Cholesterol Arterial Blood Glucose 232 H Arterial Blood Ionized Calcium 4.4 L Acetaminophen Crossmatch 03/10/21 03/10/21 03/10/21 05:14 05:14 05:14 WBC RBC Hgb Hct MCV RDW Plt Count Lymph % (Auto) [place] % (Auto) Lymph # (Auto) [place] # (Auto) Seg Neutrophils % Seg Neuts % (Manual) Lymphocytes % (Manual) Seg Neutrophils # Seg Neutrophils # Man Lymphocytes # (Manual) APTT D-Dimer ABG pH POC ABG pCO2 POC ABG pO2 ABG pO2 ABG HCO3 ABG O2 Saturation ABG Base Excess ABG Hemoglobin ABG Oxyhemoglobin ABG Sodium ABG Potassium ABG Chloride ABG Glucose Carboxyhemoglobin Sodium Potassium Chloride 107.2 H Carbon Dioxide BUN 48 H Creatinine Glucose 218 H POC Glucose Lactic Acid Calcium 7.9 L Phosphorus Magnesium Ferritin Direct Bilirubin AST 41 H ALT Ammonia Lactate Dehydrogenase Total Creatine Kinase CK-MB (CK-2) 17.8 H CK-MB (CK-2) Rel Index 18.1 H Troponin T 0.798 H* C-Reactive Protein Total Protein 5.7 L Albumin 2.7 L Prealbumin Triglycerides 173 H HDL Cholesterol 36 L Arterial Blood Glucose Arterial Blood Ionized Calcium Acetaminophen Crossmatch 0803/10/21 03/10/21 05:35 11:43 18:17 WBC RBC Hgb Hct MCV RDW Plt Count Lymph % (Auto) [place] % (Auto) Lymph # (Auto) [place] # (Auto) Seg Neutrophils % Seg Neuts % (Manual) Lymphocytes % (Manual) Seg Neutrophils # Seg Neutrophils # Man Lymphocytes # (Manual) APTT D-Dimer ABG pH POC ABG pCO2 POC ABG pO2 ABG pO2 ABG HCO3 ABG O2 Saturation ABG Base Excess ABG Hemoglobin ABG Oxyhemoglobin ABG Sodium ABG Potassium ABG Chloride ABG Glucose Carboxyhemoglobin Sodium Potassium Chloride Carbon Dioxide BUN Creatinine Glucose POC Glucose 210 H 221 H 120 H Lactic Acid Calcium Phosphorus Magnesium Ferritin Direct Bilirubin AST ALT Ammonia Lactate Dehydrogenase Total Creatine Kinase CK-MB (CK-2) CK-MB (CK-2) Rel Index Troponin T C-Reactive Protein Total Protein Albumin Prealbumin Triglycerides HDL Cholesterol Arterial Blood Glucose Arterial Blood Ionized Calcium Acetaminophen Crossmatch 03/10/21 03/11/21 03/11/21 18:40 00:44 08:00 WBC RBC Hgb Hct MCV RDW Plt Count Lymph % (Auto) [place] % (Auto) Lymph # (Auto) [place] # (Auto) Seg Neutrophils % Seg Neuts % (Manual) Lymphocytes % (Manual) Seg Neutrophils # Seg Neutrophils # Man Lymphocytes # (Manual) APTT D-Dimer ABG pH POC ABG pCO2 POC ABG pO2 ABG pO2 ABG HCO3 ABG O2 Saturation ABG Base Excess ABG Hemoglobin ABG Oxyhemoglobin ABG Sodium ABG Potassium ABG Chloride ABG Glucose Carboxyhemoglobin Sodium Potassium Chloride Carbon Dioxide BUN Creatinine Glucose POC Glucose Lactic Acid Calcium Phosphorus Magnesium Ferritin Direct Bilirubin AST ALT Ammonia Lactate Dehydrogenase Total Creatine Kinase CK-MB (CK-2) CK-MB (CK-2) Rel Index Troponin T 0.477 H* D 0.430 H* 0.363 H* C-Reactive Protein Total Protein Albumin Prealbumin Triglycerides HDL Cholesterol Arterial Blood Glucose Arterial Blood Ionized Calcium Acetaminophen Crossmatch 03/11/21 03/11/21 03/11/21 08:00 08:00 11:26 WBC 14.7 H RBC 3.62 L Hgb 11.3 L Hct 34.4 L MCV 95 H RDW Plt Count Lymph % (Auto) [place] % (Auto) Lymph # (Auto) [place] # (Auto) Seg Neutrophils % Seg Neuts % (Manual) Lymphocytes % (Manual) Seg Neutrophils # Seg Neutrophils # Man Lymphocytes # (Manual) APTT D-Dimer ABG pH POC ABG pCO2 POC ABG pO2 ABG pO2 ABG HCO3 ABG O2 Saturation ABG Base Excess ABG Hemoglobin ABG Oxyhemoglobin ABG Sodium ABG Potassium ABG Chloride ABG Glucose Carboxyhemoglobin Sodium Potassium Chloride Carbon Dioxide BUN 34 H Creatinine Glucose 167 H POC Glucose 157 H Lactic Acid Calcium Phosphorus 2.40 L Magnesium 2.40 H Ferritin Direct Bilirubin AST ALT Ammonia Lactate Dehydrogenase Total Creatine Kinase CK-MB (CK-2) CK-MB (CK-2) Rel Index Troponin T C-Reactive Protein Total Protein 6.1 L Albumin 2.7 L Prealbumin Triglycerides HDL Cholesterol Arterial Blood Glucose Arterial Blood Ionized Calcium Acetaminophen Crossmatch 03/11/21 03/11/21 03/12/21 17:31 21:50 03:05 WBC RBC Hgb 10.7 L Hct 33.6 L MCV RDW Plt Count Lymph % (Auto) [place] % (Auto) Lymph # (Auto) [place] # (Auto) Seg Neutrophils % Seg Neuts % (Manual) Lymphocytes % (Manual) Seg Neutrophils # Seg Neutrophils # Man Lymphocytes # (Manual) APTT D-Dimer ABG pH POC ABG pCO2 POC ABG pO2 ABG pO2 ABG HCO3 ABG O2 Saturation ABG Base Excess ABG Hemoglobin ABG Oxyhemoglobin ABG Sodium ABG Potassium ABG Chloride ABG Glucose Carboxyhemoglobin Sodium Potassium Chloride Carbon Dioxide BUN Creatinine Glucose POC Glucose 154 H 139 H Lactic Acid Calcium Phosphorus Magnesium Ferritin Direct Bilirubin AST ALT Ammonia Lactate Dehydrogenase Total Creatine Kinase CK-MB (CK-2) CK-MB (CK-2) Rel Index Troponin T C-Reactive Protein Total Protein Albumin Prealbumin Triglycerides HDL Cholesterol Arterial Blood Glucose Arterial Blood Ionized Calcium Acetaminophen Crossmatch 03/12/21 03/12/21 03/12/21 04:40 04:40 06:03 WBC 11.6 H RBC 3.28 L Hgb 10.3 L Hct 31.3 L MCV 96 H RDW Plt Count Lymph % (Auto) [place] % (Auto) Lymph # (Auto) [place] # (Auto) Seg Neutrophils % Seg Neuts % (Manual) 92.0 H Lymphocytes % (Manual) 3.0 L Seg Neutrophils # Seg Neutrophils # Man 10.7 H Lymphocytes # (Manual) 0.3 L APTT D-Dimer ABG pH POC ABG pCO2 POC ABG pO2 ABG pO2 ABG HCO3 ABG O2 Saturation ABG Base Excess ABG Hemoglobin ABG Oxyhemoglobin ABG Sodium ABG Potassium ABG Chloride ABG Glucose Carboxyhemoglobin Sodium Potassium Chloride 108.7 H Carbon Dioxide BUN 28 H Creatinine Glucose 137 H POC Glucose 137 H Lactic Acid Calcium 8.2 L Phosphorus Magnesium Ferritin Direct Bilirubin AST ALT Ammonia Lactate Dehydrogenase Total Creatine Kinase CK-MB (CK-2) CK-MB (CK-2) Rel Index Troponin T 0.261 H* D C-Reactive Protein Total Protein Albumin Prealbumin Triglycerides HDL Cholesterol Arterial Blood Glucose Arterial Blood Ionized Calcium Acetaminophen Crossmatch 03/12/21 03/12/21 03/13/21 14:17 17:28 04:09 WBC RBC Hgb 9.1 L Hct 27.7 L MCV RDW Plt Count Lymph % (Auto) [place] % (Auto) Lymph # (Auto) [place] # (Auto) Seg Neutrophils % Seg Neuts % (Manual) Lymphocytes % (Manual) Seg Neutrophils # Seg Neutrophils # Man Lymphocytes # (Manual) APTT D-Dimer ABG pH POC ABG pCO2 POC ABG pO2 ABG pO2 ABG HCO3 ABG O2 Saturation ABG Base Excess ABG Hemoglobin ABG Oxyhemoglobin ABG Sodium ABG Potassium ABG Chloride ABG Glucose Carboxyhemoglobin Sodium Potassium Chloride Carbon Dioxide BUN Creatinine Glucose POC Glucose 165 H 111 H Lactic Acid Calcium Phosphorus Magnesium Ferritin Direct Bilirubin AST ALT Ammonia Lactate Dehydrogenase Total Creatine Kinase CK-MB (CK-2) CK-MB (CK-2) Rel Index Troponin T C-Reactive Protein Total Protein Albumin Prealbumin Triglycerides HDL Cholesterol Arterial Blood Glucose Arterial Blood Ionized Calcium Acetaminophen Crossmatch 03/13/21 03/13/21 03/13/21 05:04 11:28 14:25 WBC RBC Hgb 6.7 L Hct 19.7 L* D MCV RDW Plt Count Lymph % (Auto) [place] % (Auto) Lymph # (Auto) [place] # (Auto) Seg Neutrophils % Seg Neuts % (Manual) Lymphocytes % (Manual) Seg Neutrophils # Seg Neutrophils # Man Lymphocytes # (Manual) APTT D-Dimer ABG pH POC ABG pCO2 POC ABG pO2 ABG pO2 ABG HCO3 ABG O2 Saturation ABG Base Excess ABG Hemoglobin ABG Oxyhemoglobin ABG Sodium ABG Potassium ABG Chloride ABG Glucose Carboxyhemoglobin Sodium Potassium Chloride Carbon Dioxide BUN Creatinine Glucose POC Glucose 113 H 148 H Lactic Acid Calcium Phosphorus Magnesium Ferritin Direct Bilirubin AST ALT Ammonia Lactate Dehydrogenase Total Creatine Kinase CK-MB (CK-2) CK-MB (CK-2) Rel Index Troponin T C-Reactive Protein Total Protein Albumin Prealbumin Triglycerides HDL Cholesterol Arterial Blood Glucose Arterial Blood Ionized Calcium Acetaminophen Crossmatch 03/13/21 03/13/21 03/13/21 15:22 17:25 19:16 WBC RBC Hgb Hct MCV RDW Plt Count Lymph % (Auto) [place] % (Auto) Lymph # (Auto) [place] # (Auto) Seg Neutrophils % Seg Neuts % (Manual) Lymphocytes % (Manual) Seg Neutrophils # Seg Neutrophils # Man Lymphocytes # (Manual) APTT D-Dimer ABG pH 7.174 L POC ABG pCO2 POC ABG pO2 78.7 L ABG pO2 ABG HCO3 ABG O2 Saturation ABG Base Excess ABG Hemoglobin 5.5 L ABG Oxyhemoglobin 88.8 L ABG Sodium 135.1 L ABG Potassium 5.2 H ABG Chloride 109.0 H ABG Glucose 96 H Carboxyhemoglobin Sodium Potassium Chloride Carbon Dioxide BUN Creatinine Glucose POC Glucose 47 L Lactic Acid Calcium Phosphorus Magnesium Ferritin Direct Bilirubin AST ALT Ammonia Lactate Dehydrogenase Total Creatine Kinase CK-MB (CK-2) CK-MB (CK-2) Rel Index Troponin T C-Reactive Protein Total Protein Albumin Prealbumin Triglycerides HDL Cholesterol Arterial Blood Glucose 96 H Arterial Blood Ionized Calcium 4.4 L Acetaminophen Crossmatch See Detail 03/13/21 03/13/21 03/13/21 20:06 20:16 20:24 WBC RBC Hgb 8.1 L Hct 24.1 L MCV RDW Plt Count Lymph % (Auto) [place] % (Auto) Lymph # (Auto) [place] # (Auto) Seg Neutrophils % Seg Neuts % (Manual) Lymphocytes % (Manual) Seg Neutrophils # Seg Neutrophils # Man Lymphocytes # (Manual) APTT D-Dimer ABG pH 7.094 L POC ABG pCO2 64.0 H POC ABG pO2 68.2 L ABG pO2 ABG HCO3 ABG O2 Saturation ABG Base Excess ABG Hemoglobin 7.9 L ABG Oxyhemoglobin 84.6 L ABG Sodium ABG Potassium 4.9 H ABG Chloride ABG Glucose 220 H Carboxyhemoglobin Sodium Potassium Chloride Carbon Dioxide BUN Creatinine Glucose POC Glucose 188 H Lactic Acid Calcium Phosphorus Magnesium Ferritin Direct Bilirubin AST ALT Ammonia Lactate Dehydrogenase Total Creatine Kinase CK-MB (CK-2) CK-MB (CK-2) Rel Index Troponin T C-Reactive Protein Total Protein Albumin Prealbumin Triglycerides HDL Cholesterol Arterial Blood Glucose 220 H Arterial Blood Ionized Calcium 4.1 L Acetaminophen Crossmatch 03/13/21 03/14/21 03/14/21 23:17 04:00 04:00 WBC 17.9 H RBC 2.55 L Hgb 7.8 L Hct 23.1 L MCV RDW Plt Count 111 L Lymph % (Auto) [place] % (Auto) Lymph # (Auto) [place] # (Auto) Seg Neutrophils % Seg Neuts % (Manual) 99.0 H Lymphocytes % (Manual) Seg Neutrophils # Seg Neutrophils # Man 17.7 H Lymphocytes # (Manual) 0.0 L APTT D-Dimer ABG pH POC ABG pCO2 POC ABG pO2 ABG pO2 ABG HCO3 ABG O2 Saturation ABG Base Excess ABG Hemoglobin ABG Oxyhemoglobin ABG Sodium ABG Potassium ABG Chloride ABG Glucose Carboxyhemoglobin Sodium Potassium Chloride Carbon Dioxide 35 H BUN 48 H Creatinine 1.7 H D Glucose 258 H POC Glucose 244 H Lactic Acid Calcium 7.2 L Phosphorus Magnesium Ferritin Direct Bilirubin AST ALT Ammonia Lactate Dehydrogenase Total Creatine Kinase CK-MB (CK-2) CK-MB (CK-2) Rel Index Troponin T C-Reactive Protein Total Protein Albumin Prealbumin Triglycerides HDL Cholesterol Arterial Blood Glucose Arterial Blood Ionized Calcium Acetaminophen Crossmatch 03/14/21 03/14/21 03/14/21 05:15 10:24 14:54 WBC RBC Hgb 8.3 L Hct 24.1 L MCV RDW Plt Count Lymph % (Auto) [place] % (Auto) Lymph # (Auto) [place] # (Auto) Seg Neutrophils % Seg Neuts % (Manual) Lymphocytes % (Manual) Seg Neutrophils # Seg Neutrophils # Man Lymphocytes # (Manual) APTT D-Dimer ABG pH 7.294 L POC ABG pCO2 69.4 H POC ABG pO2 128.0 H ABG pO2 ABG HCO3 ABG O2 Saturation ABG Base Excess ABG Hemoglobin 10.2 L ABG Oxyhemoglobin ABG Sodium ABG Potassium ABG Chloride ABG Glucose 130 H Carboxyhemoglobin 0.3 L Sodium Potassium Chloride Carbon Dioxide BUN Creatinine Glucose POC Glucose 203 H Lactic Acid Calcium Phosphorus Magnesium Ferritin Direct Bilirubin AST ALT Ammonia Lactate Dehydrogenase Total Creatine Kinase CK-MB (CK-2) CK-MB (CK-2) Rel Index Troponin T C-Reactive Protein Total Protein Albumin Prealbumin Triglycerides HDL Cholesterol Arterial Blood Glucose 130 H Arterial Blood Ionized Calcium 4.1 L Acetaminophen Crossmatch 03/14/21 03/14/21 03/15/21 17:37 23:39 04:00 WBC RBC Hgb 8.0 L Hct 23.4 L MCV RDW Plt Count 119 L Lymph % (Auto) [place] % (Auto) Lymph # (Auto) [place] # (Auto) Seg Neutrophils % Seg Neuts % (Manual) Lymphocytes % (Manual) Seg Neutrophils # Seg Neutrophils # Man Lymphocytes # (Manual) APTT D-Dimer ABG pH POC ABG pCO2 POC ABG pO2 ABG pO2 ABG HCO3 ABG O2 Saturation ABG Base Excess ABG Hemoglobin ABG Oxyhemoglobin ABG Sodium ABG Potassium ABG Chloride ABG Glucose Carboxyhemoglobin Sodium Potassium Chloride Carbon Dioxide BUN Creatinine Glucose POC Glucose 110 H 112 H Lactic Acid Calcium Phosphorus Magnesium Ferritin Direct Bilirubin AST ALT Ammonia Lactate Dehydrogenase Total Creatine Kinase CK-MB (CK-2) CK-MB (CK-2) Rel Index Troponin T C-Reactive Protein Total Protein Albumin Prealbumin Triglycerides HDL Cholesterol Arterial Blood Glucose Arterial Blood Ionized Calcium Acetaminophen Crossmatch 03/15/21 03/15/21 03/15/21 04:00 05:54 10:32 WBC RBC Hgb Hct MCV RDW Plt Count Lymph % (Auto) [place] % (Auto) Lymph # (Auto) [place] # (Auto) Seg Neutrophils % Seg Neuts % (Manual) Lymphocytes % (Manual) Seg Neutrophils # Seg Neutrophils # Man Lymphocytes # (Manual) APTT D-Dimer ABG pH POC ABG pCO2 71.5 H POC ABG pO2 ABG pO2 ABG HCO3 ABG O2 Saturation ABG Base Excess ABG Hemoglobin 7.9 L ABG Oxyhemoglobin ABG Sodium ABG Potassium ABG Chloride ABG Glucose 160 H Carboxyhemoglobin Sodium Potassium Chloride Carbon Dioxide 39 H BUN 41 H Creatinine 1.6 H Glucose 153 H POC Glucose 131 H Lactic Acid Calcium 7.0 L Phosphorus Magnesium Ferritin Direct Bilirubin AST ALT Ammonia Lactate Dehydrogenase Total Creatine Kinase CK-MB (CK-2) CK-MB (CK-2) Rel Index Troponin T C-Reactive Protein Total Protein Albumin Prealbumin Triglycerides HDL Cholesterol Arterial Blood Glucose 160 H Arterial Blood Ionized Calcium 3.9 L Acetaminophen Crossmatch 03/15/21 03/15/21 03/15/21 11:19 11:37 11:40 WBC RBC Hgb Hct MCV RDW Plt Count Lymph % (Auto) [place] % (Auto) Lymph # (Auto) [place] # (Auto) Seg Neutrophils % Seg Neuts % (Manual) Lymphocytes % (Manual) Seg Neutrophils # Seg Neutrophils # Man Lymphocytes # (Manual) APTT D-Dimer ABG pH POC ABG pCO2 POC ABG pO2 ABG pO2 ABG HCO3 ABG O2 Saturation ABG Base Excess ABG Hemoglobin ABG Oxyhemoglobin ABG Sodium ABG Potassium ABG Chloride ABG Glucose Carboxyhemoglobin Sodium Potassium Chloride Carbon Dioxide BUN Creatinine Glucose 317 H POC Glucose 28 L 25 L Lactic Acid Calcium Phosphorus Magnesium Ferritin Direct Bilirubin AST ALT Ammonia Lactate Dehydrogenase Total Creatine Kinase CK-MB (CK-2) CK-MB (CK-2) Rel Index Troponin T C-Reactive Protein Total Protein Albumin Prealbumin Triglycerides HDL Cholesterol Arterial Blood Glucose Arterial Blood Ionized Calcium Acetaminophen Crossmatch 03/15/21 03/15/21 03/15/21 12:33 20:05 20:15 WBC RBC Hgb 8.0 L Hct 23.5 L MCV RDW Plt Count Lymph % (Auto) [place] % (Auto) Lymph # (Auto) [place] # (Auto) Seg Neutrophils % Seg Neuts % (Manual) Lymphocytes % (Manual) Seg Neutrophils # Seg Neutrophils # Man Lymphocytes # (Manual) APTT D-Dimer ABG pH POC ABG pCO2 63.7 H POC ABG pO2 43.1 L ABG pO2 ABG HCO3 ABG O2 Saturation ABG Base Excess ABG Hemoglobin 8.1 L ABG Oxyhemoglobin 76.4 L ABG Sodium 134.8 L ABG Potassium ABG Chloride ABG Glucose 171 H Carboxyhemoglobin Sodium Potassium Chloride Carbon Dioxide BUN Creatinine Glucose POC Glucose 145 H Lactic Acid Calcium Phosphorus Magnesium Ferritin Direct Bilirubin AST ALT Ammonia Lactate Dehydrogenase Total Creatine Kinase CK-MB (CK-2) CK-MB (CK-2) Rel Index Troponin T C-Reactive Protein Total Protein Albumin Prealbumin Triglycerides HDL Cholesterol Arterial Blood Glucose 171 H Arterial Blood Ionized Calcium 3.9 L Acetaminophen Crossmatch 03/16/21 03/16/21 03/16/21 04:05 09:53 09:53 WBC 17.9 H RBC 2.51 L Hgb 7.8 L Hct 23.1 L MCV RDW Plt Count 96 L 114 L Lymph % (Auto) [place] % (Auto) Lymph # (Auto) [place] # (Auto) Seg Neutrophils % Seg Neuts % (Manual) Lymphocytes % (Manual) Seg Neutrophils # Seg Neutrophils # Man Lymphocytes # (Manual) APTT D-Dimer ABG pH POC ABG pCO2 POC ABG pO2 ABG pO2 ABG HCO3 ABG O2 Saturation ABG Base Excess ABG Hemoglobin ABG Oxyhemoglobin ABG Sodium ABG Potassium ABG Chloride ABG Glucose Carboxyhemoglobin Sodium Potassium Chloride Carbon Dioxide 42 H* BUN 30 H Creatinine Glucose 220 H POC Glucose Lactic Acid Calcium 7.4 L Phosphorus Magnesium Ferritin Direct Bilirubin AST ALT Ammonia Lactate Dehydrogenase Total Creatine Kinase CK-MB (CK-2) CK-MB (CK-2) Rel Index Troponin T C-Reactive Protein Total Protein Albumin Prealbumin Triglycerides HDL Cholesterol Arterial Blood Glucose Arterial Blood Ionized Calcium Acetaminophen Crossmatch 03/16/21 03/16/21 03/16/21 11:36 11:39 21:59 WBC RBC Hgb Hct MCV RDW Plt Count Lymph % (Auto) [place] % (Auto) Lymph # (Auto) [place] # (Auto) Seg Neutrophils % Seg Neuts % (Manual) Lymphocytes % (Manual) Seg Neutrophils # Seg Neutrophils # Man Lymphocytes # (Manual) APTT D-Dimer ABG pH POC ABG pCO2 88.2 H POC ABG pO2 50.2 L ABG pO2 ABG HCO3 ABG O2 Saturation ABG Base Excess ABG Hemoglobin 8.1 L ABG Oxyhemoglobin 80.2 L ABG Sodium 135.4 L ABG Potassium ABG Chloride 97.0 L ABG Glucose 98 H Carboxyhemoglobin Sodium Potassium Chloride Carbon Dioxide BUN Creatinine Glucose POC Glucose 58 L 210 H Lactic Acid Calcium Phosphorus Magnesium Ferritin Direct Bilirubin AST ALT Ammonia Lactate Dehydrogenase Total Creatine Kinase CK-MB (CK-2) CK-MB (CK-2) Rel Index Troponin T C-Reactive Protein Total Protein Albumin Prealbumin Triglycerides HDL Cholesterol Arterial Blood Glucose 98 H Arterial Blood Ionized Calcium 4.0 L Acetaminophen Crossmatch 03/17/21 03/17/21 03/17/21 00:13 00:35 00:55 WBC RBC Hgb Hct MCV RDW Plt Count Lymph % (Auto) [place] % (Auto) Lymph # (Auto) [place] # (Auto) Seg Neutrophils % Seg Neuts % (Manual) Lymphocytes % (Manual) Seg Neutrophils # Seg Neutrophils # Man Lymphocytes # (Manual) APTT D-Dimer ABG pH POC ABG pCO2 69.0 H POC ABG pO2 ABG pO2 ABG HCO3 ABG O2 Saturation ABG Base Excess ABG Hemoglobin 7.2 L ABG Oxyhemoglobin ABG Sodium 135.0 L ABG Potassium ABG Chloride ABG Glucose 110 H Carboxyhemoglobin Sodium Potassium Chloride Carbon Dioxide BUN Creatinine Glucose POC Glucose 119 H Lactic Acid Calcium Phosphorus Magnesium Ferritin Direct Bilirubin 0.3 H AST 229 H ALT 426 H Ammonia Lactate Dehydrogenase Total Creatine Kinase CK-MB (CK-2) CK-MB (CK-2) Rel Index Troponin T C-Reactive Protein Total Protein 4.6 L Albumin 2.5 L Prealbumin Triglycerides HDL Cholesterol Arterial Blood Glucose 110 H Arterial Blood Ionized Calcium 4.0 L Acetaminophen Crossmatch 03/17/21 03/17/21 03/17/21 00:55 06:30 06:30 WBC 25.9 H RBC 2.16 L Hgb 6.7 L Hct 20.0 L MCV RDW Plt Count 124 L Lymph % (Auto) [place] % (Auto) Lymph # (Auto) [place] # (Auto) Seg Neutrophils % Seg Neuts % (Manual) 98.0 H Lymphocytes % (Manual) 2.0 L Seg Neutrophils # Seg Neutrophils # Man 25.4 H Lymphocytes # (Manual) 0.5 L APTT 44.5 H D-Dimer ABG pH POC ABG pCO2 POC ABG pO2 ABG pO2 ABG HCO3 ABG O2 Saturation ABG Base Excess ABG Hemoglobin ABG Oxyhemoglobin ABG Sodium ABG Potassium ABG Chloride ABG Glucose Carboxyhemoglobin Sodium Potassium Chloride Carbon Dioxide 42 H* BUN 30 H Creatinine Glucose 171 H POC Glucose Lactic Acid Calcium 7.5 L Phosphorus Magnesium Ferritin Direct Bilirubin AST ALT Ammonia Lactate Dehydrogenase Total Creatine Kinase CK-MB (CK-2) CK-MB (CK-2) Rel Index Troponin T C-Reactive Protein Total Protein Albumin Prealbumin Triglycerides HDL Cholesterol Arterial Blood Glucose Arterial Blood Ionized Calcium Acetaminophen Crossmatch 03/17/21 03/17/21 03/17/21 09:20 10:13 11:57 WBC RBC Hgb Hct MCV RDW Plt Count Lymph % (Auto) [place] % (Auto) Lymph # (Auto) [place] # (Auto) Seg Neutrophils % Seg Neuts % (Manual) Lymphocytes % (Manual) Seg Neutrophils # Seg Neutrophils # Man Lymphocytes # (Manual) APTT 63.2 H* D-Dimer ABG pH POC ABG pCO2 POC ABG pO2 ABG pO2 ABG HCO3 ABG O2 Saturation ABG Base Excess ABG Hemoglobin ABG Oxyhemoglobin ABG Sodium ABG Potassium ABG Chloride ABG Glucose Carboxyhemoglobin Sodium Potassium Chloride Carbon Dioxide BUN Creatinine Glucose POC Glucose 48 L Lactic Acid Calcium Phosphorus Magnesium Ferritin Direct Bilirubin AST ALT Ammonia Lactate Dehydrogenase Total Creatine Kinase CK-MB (CK-2) CK-MB (CK-2) Rel Index Troponin T C-Reactive Protein Total Protein Albumin Prealbumin Triglycerides HDL Cholesterol Arterial Blood Glucose Arterial Blood Ionized Calcium Acetaminophen Crossmatch See Detail 03/17/21 03/17/21 03/17/21 12:01 17:09 18:23 WBC RBC Hgb Hct MCV RDW Plt Count Lymph % (Auto) [place] % (Auto) Lymph # (Auto) [place] # (Auto) Seg Neutrophils % Seg Neuts % (Manual) Lymphocytes % (Manual) Seg Neutrophils # Seg Neutrophils # Man Lymphocytes # (Manual) APTT D-Dimer ABG pH POC ABG pCO2 POC ABG pO2 ABG pO2 ABG HCO3 ABG O2 Saturation ABG Base Excess ABG Hemoglobin ABG Oxyhemoglobin ABG Sodium ABG Potassium ABG Chloride ABG Glucose Carboxyhemoglobin Sodium Potassium Chloride Carbon Dioxide BUN Creatinine Glucose POC Glucose 159 H 68 L 60 L Lactic Acid Calcium Phosphorus Magnesium Ferritin Direct Bilirubin AST ALT Ammonia Lactate Dehydrogenase Total Creatine Kinase CK-MB (CK-2) CK-MB (CK-2) Rel Index Troponin T C-Reactive Protein Total Protein Albumin Prealbumin Triglycerides HDL Cholesterol Arterial Blood Glucose Arterial Blood Ionized Calcium Acetaminophen Crossmatch 03/17/21 03/18/21 03/18/21 18:26 05:00 05:00 WBC 35.7 H RBC 2.59 L Hgb 7.9 L Hct 23.3 L MCV RDW 16.6 H Plt Count 79 L Lymph % (Auto) [place] % (Auto) Lymph # (Auto) [place] # (Auto) Seg Neutrophils % Seg Neuts % (Manual) 93.0 H Lymphocytes % (Manual) Seg Neutrophils # Seg Neutrophils # Man 33.2 H Lymphocytes # (Manual) 0.0 L APTT D-Dimer ABG pH POC ABG pCO2 POC ABG pO2 ABG pO2 ABG HCO3 ABG O2 Saturation ABG Base Excess ABG Hemoglobin ABG Oxyhemoglobin ABG Sodium ABG Potassium ABG Chloride ABG Glucose Carboxyhemoglobin Sodium Potassium Chloride 97.0 L Carbon Dioxide 44 H* BUN 27 H Creatinine Glucose 119 H POC Glucose 60 L Lactic Acid Calcium 7.3 L Phosphorus 1.90 L Magnesium 1.60 L Ferritin Direct Bilirubin 0.3 H AST 228 H ALT 406 H Ammonia Lactate Dehydrogenase Total Creatine Kinase CK-MB (CK-2) CK-MB (CK-2) Rel Index Troponin T C-Reactive Protein Total Protein 4.8 L Albumin 2.4 L Prealbumin Triglycerides HDL Cholesterol Arterial Blood Glucose Arterial Blood Ionized Calcium Acetaminophen Crossmatch 03/18/21 03/18/21 03/18/21 10:25 10:25 12:04 WBC RBC Hgb 7.8 L Hct 23.3 L MCV RDW Plt Count Lymph % (Auto) [place] % (Auto) Lymph # (Auto) [place] # (Auto) Seg Neutrophils % Seg Neuts % (Manual) Lymphocytes % (Manual) Seg Neutrophils # Seg Neutrophils # Man Lymphocytes # (Manual) APTT 49.2 H D-Dimer ABG pH POC ABG pCO2 POC ABG pO2 ABG pO2 ABG HCO3 ABG O2 Saturation ABG Base Excess ABG Hemoglobin ABG Oxyhemoglobin ABG Sodium ABG Potassium ABG Chloride ABG Glucose Carboxyhemoglobin Sodium Potassium Chloride Carbon Dioxide BUN Creatinine Glucose POC Glucose 143 H Lactic Acid Calcium Phosphorus Magnesium Ferritin Direct Bilirubin AST ALT Ammonia Lactate Dehydrogenase Total Creatine Kinase CK-MB (CK-2) CK-MB (CK-2) Rel Index Troponin T C-Reactive Protein Total Protein Albumin Prealbumin Triglycerides HDL Cholesterol Arterial Blood Glucose Arterial Blood Ionized Calcium Acetaminophen Crossmatch 03/18/21 03/18/21 03/18/21 17:28 21:15 21:41 WBC RBC Hgb Hct MCV RDW Plt Count Lymph % (Auto) [place] % (Auto) Lymph # (Auto) [place] # (Auto) Seg Neutrophils % Seg Neuts % (Manual) Lymphocytes % (Manual) Seg Neutrophils # Seg Neutrophils # Man Lymphocytes # (Manual) APTT D-Dimer ABG pH POC ABG pCO2 POC ABG pO2 ABG pO2 ABG HCO3 ABG O2 Saturation ABG Base Excess ABG Hemoglobin ABG Oxyhemoglobin ABG Sodium ABG Potassium ABG Chloride ABG Glucose Carboxyhemoglobin Sodium Potassium Chloride Carbon Dioxide BUN Creatinine Glucose POC Glucose 172 H 37 L 110 H Lactic Acid Calcium Phosphorus Magnesium Ferritin Direct Bilirubin AST ALT Ammonia Lactate Dehydrogenase Total Creatine Kinase CK-MB (CK-2) CK-MB (CK-2) Rel Index Troponin T C-Reactive Protein Total Protein Albumin Prealbumin Triglycerides HDL Cholesterol Arterial Blood Glucose Arterial Blood Ionized Calcium Acetaminophen Crossmatch 03/19/21 03/19/21 03/19/21 00:17 00:17 04:22 WBC RBC Hgb 8.0 L Hct 24.3 L MCV RDW Plt Count Lymph % (Auto) [place] % (Auto) Lymph # (Auto) [place] # (Auto) Seg Neutrophils % Seg Neuts % (Manual) Lymphocytes % (Manual) Seg Neutrophils # Seg Neutrophils # Man Lymphocytes # (Manual) APTT 67.9 H* D-Dimer ABG pH POC ABG pCO2 POC ABG pO2 ABG pO2 ABG HCO3 ABG O2 Saturation ABG Base Excess ABG Hemoglobin ABG Oxyhemoglobin ABG Sodium ABG Potassium ABG Chloride ABG Glucose Carboxyhemoglobin Sodium Potassium Chloride Carbon Dioxide BUN Creatinine Glucose POC Glucose 107 H Lactic Acid Calcium Phosphorus Magnesium Ferritin Direct Bilirubin AST ALT Ammonia Lactate Dehydrogenase Total Creatine Kinase CK-MB (CK-2) CK-MB (CK-2) Rel Index Troponin T C-Reactive Protein Total Protein Albumin Prealbumin Triglycerides HDL Cholesterol Arterial Blood Glucose Arterial Blood Ionized Calcium Acetaminophen Crossmatch 03/19/21 03/19/21 03/19/21 08:39 09:53 09:53 WBC 32.3 H RBC 2.59 L Hgb 7.7 L Hct 23.4 L MCV RDW 16.8 H Plt Count 71 L Lymph % (Auto) [place] % (Auto) Lymph # (Auto) [place] # (Auto) Seg Neutrophils % Seg Neuts % (Manual) Lymphocytes % (Manual) Seg Neutrophils # Seg Neutrophils # Man Lymphocytes # (Manual) APTT 71.1 H* D-Dimer ABG pH POC ABG pCO2 POC ABG pO2 ABG pO2 ABG HCO3 ABG O2 Saturation ABG Base Excess ABG Hemoglobin ABG Oxyhemoglobin ABG Sodium ABG Potassium ABG Chloride ABG Glucose Carboxyhemoglobin Sodium Potassium Chloride Carbon Dioxide BUN Creatinine Glucose POC Glucose 120 H Lactic Acid Calcium Phosphorus Magnesium Ferritin Direct Bilirubin AST ALT Ammonia Lactate Dehydrogenase Total Creatine Kinase CK-MB (CK-2) CK-MB (CK-2) Rel Index Troponin T C-Reactive Protein Total Protein Albumin Prealbumin Triglycerides HDL Cholesterol Arterial Blood Glucose Arterial Blood Ionized Calcium Acetaminophen Crossmatch 03/19/21 09:53 WBC RBC Hgb Hct MCV RDW Plt Count Lymph % (Auto) [place] % (Auto) Lymph # (Auto) [place] # (Auto) Seg Neutrophils % Seg Neuts % (Manual) Lymphocytes % (Manual) Seg Neutrophils # Seg Neutrophils # Man Lymphocytes # (Manual) APTT D-Dimer ABG pH POC ABG pCO2 POC ABG pO2 ABG pO2 ABG HCO3 ABG O2 Saturation ABG Base Excess ABG Hemoglobin ABG Oxyhemoglobin ABG Sodium ABG Potassium ABG Chloride ABG Glucose Carboxyhemoglobin Sodium Potassium 3.3 L Chloride 93.9 L Carbon Dioxide 44 H* BUN 21 H Creatinine Glucose 220 H POC Glucose Lactic Acid Calcium 7.7 L Phosphorus Magnesium Ferritin Direct Bilirubin AST ALT Ammonia Lactate Dehydrogenase Total Creatine Kinase CK-MB (CK-2) CK-MB (CK-2) Rel Index Troponin T C-Reactive Protein Total Protein Albumin Prealbumin Triglycerides HDL Cholesterol Arterial Blood Glucose Arterial Blood Ionized Calcium Acetaminophen Crossmatch
--- NOTE | 2021-03-19 14:21 | Gastroenterology Progress Note ---
Assessment and Plan # Anemia # Suspected GI bleed - per nursing, noted to have black stool on 03/13/2021. Heparin drip was held. Drop H/H to 6 and received blood transfusion. Hgb stable at 8. - CT showing moderate right iliopsoas hematoma. - suspect possible upper GI bleed with PUD as well given report of black stools in the setting of anticoagulation. - currently no signs of active GI bleeding. - Hgb stable. rec - supportive care - cont with PPI IV - monitor H/H and for signs of bleeding. - patient currently on plavix and ASA for recent PCI for STEMI/cardiac arrest. No GI contraindication for DAPT given no signs of active GI bleeding. - will follow. No plans for endoscopy at this time given no signs of active bleeding. - Patient Problems (1) Anemia Current Visit: Yes Status: Chronic Qualifiers: Anemia type: unspecified type Qualified Code(s): D64.9 - Anemia, unspecified Subjective Date of service: 03/19/21 Principal diagnosis: Respiratory distress, NE, Pseudoaneurysm Interval history: Patient remains on ventimask. No BM per nursing. No abdominal pain. Objective - Constitutional Vitals: Temp Pulse Resp BP Pulse Ox 98.5 F 89 20 124/42 96 03/19/21 12:00 03/19/21 10:16 03/19/21 08:00 03/19/21 10:16 03/19/21 09:39 General appearance: no acute distress - EENT Eyes: EOM intact - Respiratory Respiratory: bilateral: diminished - Cardiovascular Rhythm: regular Heart Sounds: Present: S1 & S2 - Gastrointestinal General gastrointestinal: Present: soft, non-tender, non-distended - Neurologic Neurological: disoriented - Labs CBC & Chem 7: 03/19/21 09:53 03/19/21 09:53 Labs: Laboratory Results - last 24 hr 03/18/21 03/18/21 03/18/21 17:28 21:15 21:41 WBC RBC Hgb Hct MCV MCH MCHC RDW Plt Count APTT Sodium Potassium Chloride Carbon Dioxide Anion Gap BUN Creatinine Estimated GFR BUN/Creatinine Ratio Glucose POC Glucose 172 H 37 L 110 H Calcium 03/18/21 03/19/21 03/19/21 23:35 00:17 00:17 WBC RBC Hgb 8.0 L Hct 24.3 L MCV MCH MCHC RDW Plt Count APTT 67.9 H* Sodium Potassium Chloride Carbon Dioxide Anion Gap BUN Creatinine Estimated GFR BUN/Creatinine Ratio Glucose POC Glucose 90 Calcium 03/19/21 03/19/21 03/19/21 01:50 04:22 08:39 WBC RBC Hgb Hct MCV MCH MCHC RDW Plt Count APTT Sodium Potassium Chloride Carbon Dioxide Anion Gap BUN Creatinine Estimated GFR BUN/Creatinine Ratio Glucose POC Glucose 101 107 H 120 H Calcium 03/19/21 03/19/21 03/19/21 09:53 09:53 09:53 WBC 32.3 H RBC 2.59 L Hgb 7.7 L Hct 23.4 L MCV 90 MCH 30 MCHC 33 RDW 16.8 H Plt Count 71 L APTT 71.1 H* Sodium 139 Potassium 3.3 L Chloride 93.9 L Carbon Dioxide 44 H* Anion Gap 4 BUN 21 H Creatinine 0.9 Estimated GFR > 60 BUN/Creatinine Ratio 23 Glucose 220 H POC Glucose Calcium 7.7 L 03/19/21 11:45 WBC RBC Hgb Hct MCV MCH MCHC RDW Plt Count APTT Sodium Potassium Chloride Carbon Dioxide Anion Gap BUN Creatinine Estimated GFR BUN/Creatinine Ratio Glucose POC Glucose 207 H Calcium
[2021-03-19 16:52] LABS: Hematocrit 22.3 % (35.5-45.6); Hemoglobin 7.4 gm/dl (11.8-15.2)
--- NOTE | 2021-03-19 18:11 | Progress Note ---
Assessment and Plan Assessment and plan: This is 65-year-old male with COPD on 2 L home oxygen, ongoing tobacco abuse, history of vascular dementia admitted for sepsis, STEMI and V. tach cardiac arrest s/p cardiac cath with PCI, right foot ischemia/cyanosis with cold extremities, retroperitoneal/iliopsoas hematoma Neuro: Acute encephalopathy, h/o vascular dementia, cerebral sclerosis -Patient is alert and oriented on examination -Patient is from [place] -Avoid delirium -Reorientation as needed -CT head showed no acute infarct but extensive atherosclerotic disease with calcification -Continue aspirin, statin and Plavix -Bilateral restraints for safety Cardiology: S/p V. tach arrest 03/10, STEMI, acute systolic congestive heart failure with EF of 35 to 40% -S/p ACLS with shock and placed on amiodarone -S/p PCI to mid LAD and successful plantation of JARED -Cardiology consulted, appreciate recommendations -Aggrastat drip -Aspirin, statin, Plavix, beta-avery -S/p Levophed drip Respiratory: Acute on chronic respiratory failure with hypoxia, COPD exacerbation, nicotine abuse, ? Left pneumothorax -CCM and surgery consulted, appreciate recommendations -2 L nasal cannula at home -S/p intubation in the emergency department now extubated -BiPAP nightly -Patient seems to be able to be weaned to Venturi mask during the day however requires higher oxygenation at night. -Pulmonary hygiene -Continue SPO2 monitoring -S/p needle decompression and chest tube placement -03/08 CTA Chest: BL LL PNA noted, small left apical pneumo appreciated. GI: Possible GI bleed, transaminitis, hypoglycemia -GI and ntr consulted, appreciate recommendations -Protonix -TF; stopped D10 gtt -Trend CBC, LFTs -Avoid hypoglycemia -ST eval recommends NPO : NAD -condom cath Endo: Hypoglycemia -SSI, hold for hypoglycemia -Accu-Cheks q4 -Avoid hypoglycemia -Started on D10 gtt re: hypoglycemia but no stopped today ID: Severe sepsis with shock, bilateral pneumonia, Leukocytosis -Patient disease consulted, patient recommendations -S/p cefepime -S/p vasopressor support -Monitor for signs and symptoms of infection and fever curve -Leukocytosis may be r/t steroids Heme: Acute on chronic anemia, thrombocytopenia, Right iliopsoas hematoma, ?HIT, right foot ischemia -Hematology/oncology and vascular surgery consulted, appreciate recommendations -Argatroban drip -IV steroids per Hem/Onc -Trend CBC -HIT pending -Transfuse for hemoglobin less than 7 or hematocrit less than 23 (per heme/onc) -COVID pcr negative x2 -S/p 4 units PRBC The high probability of a clinically significant, sudden or life threatening deterioration of the [multi] system(s) required my full and direct attention, intervention and personal management. The aggregate critical care time was [60] minutes. This time is in addition to time spent performing reported procedures but includes the following: [x] Data Review and interpretation [x] Patient assessment and monitoring of vital signs [x] Documentation [x] Medication orders and management Disposition Plan: TBD Total Time Spent with Patient (Minutes): 60 History Interval history: This is a 65-year-old male with COPD on 2L home O2, ongoing tobacco abuse and h/o vascular dementia brought to hospital by EMS for altered mental status and respiratory failure. On EMS arrival patient had a temperature 102.3, severely hypoxic with diminished breath sounds in the left side and there was a concern for pneumothorax on the left side. EMS performed a decompression of the left hemothorax but upon arrival to the emergency room EMS placed the chest tube/catheter became dislodged. Stat chest x-ray showed no obvious left-sided pneumothorax. Given altered mental status and respiratory failure with history of hypoxia patient was intubated by the ED physician. Code sepsis was called and the patient was admitted to ICU for further stabilization and Mx. He is neg for COVID x2. His hospital stay got complicated with STEMI and V. tach cardiac arrest, S/p cardiac cath with PCI to mid LAD by cardiology and following cardiac cath he developed right foot ischemia/cyanosis with cold extremity - placed on heparin drip, h/h declined with black tarry stool x2 and CT abdomen suggesting of retroperitoneal/iliopsoas hematoma. Heparin drip has been discontinued, patient transfused 2 units of packed RBC. Consultants include: CCM, GI, Cardiology, Hematology/Oncology 03/09: Hypotensive in AM, Dr. Inman placed right IJ CVC. Patient intiated on pressors. UOP 200 cc overnight. 03/10: Planned for extubation today, repeat covid test pending. RN called for elevated trop - ordered serial trop, ekg, 2d echo, aspirin, statin and placed cardiology consult. will cont to follow clinically, pt remains on levophed 03/11: Patient had Vtech cardiac arrest last night. EKG showed acute STEMI. placed on amioderone and heparin drip. S/p PCI today with stent placement, discontinued heparin drip and started on Aggrastat. Patient now noted with cold bluish LE right>left. Discussed with Dr Armstrong and recommended to initiate low intensity heparin drip after sheath was removed. Placed order and discussed the plan with nurse and pharmacy. Ordered stat lower extremity arterial Doppler and consulted vascular surgeon. Patient remains on Ventimask with 10 to 15 L of O2. Patient also remains confused, continue supportive care and follow clinically. 03/12/21: LE remain clod and cyanotic, R> L. cont heparin drip, monitor h/h. vas cular procedure when clinically more stable. discussed with daughter and updated with all clinical details. pt remains on pressor. critically ill. 03/13/21; Patient had bloody BM this am. stop heparin, start protonix IV BID. follow h/h, cont pressor, transfuse 2units PRBC. mental status declined - r emains agitated and restrained. Requiring pressor support. Ordered for CT abdomen pelvis for profound anemia. platient was placed on bicarbonate drip for severe acidosis. pulled out first central line, new rIJ placed 03/14/21: CT abdomen pelvis suggestive of moderate right iliopsoas hematoma, deuce nue to follow H&H and consult general surgery. pt on BIPAP today, h/h stable. hold ACEI/spiranolactone for GAURAV. d/c bicarbonate drip as pt becoming alkalotic. patient remains confused and agitated - on restraint 03/15/21: patient on 4L n/c today, remains lethargic, H&H stable after 2 units of packed RBC on 03/13. Remains off anticoagulation due to low platelets. Very poor prognosis, vascular following for retroperitoneal hematoma. GI recommended medical management for now possible GI bleed. Per GI patient is not stable from respiratory standpoint for endoscopy. Extremely poor prognosis, will update family. Continue to monitor clinically 03/16/21: updated both daughter in details. Patient placed back on BiPAP, repeat H&H and BMP ordered. Noted improved renal function, try to initiate tube feeding today. Platelet count continues to decline -we will consult hematology. Continue to hold anticoagulation. We will initiate aspirin and Plavix after placing Dobbhoff tube. Discussed CODE STATUS and poor prognosis with patient daughters and they stated they will decide soon. 03/17: Argatroban was stopped by cardiology be resumed by heme/oncology who also wants to continue Solu-Medrol and transfuse 1 unit PRBC if hematocrit less than 23. Patient was preloaded with Plavix and the need on daily dose of Plavix and aspirin per cardiology also stop argatroban today due to further evidence of possible possible bleeding and drop in hematocrit. 03/18/21: Argatroban restarted this morning by heme, Accu-Cheks every 4, started on D10 and per RN request placed on mechanical soft diet. Reviewed ST no which recommends NPO. 03/19: Vascular surgery plans to revascularize early next week, will order BiPAP nightly, continue argatroban. Patient is on tube feedings and we will stop D10. Lasix x1. Hospitalist Physical - Constitutional Vitals: Temp Pulse Resp BP Pulse Ox 97.5 F L 89 20 124/42 98 03/19/21 16:00 03/19/21 10:16 03/19/21 08:00 03/19/21 10:16 03/19/21 12:10 General appearance: Present: no acute distress - EENT Eyes: Present: PERRL, EOM intact ENT: clear oral mucosa - Neck Neck: Present: normal ROM - Respiratory Respiratory effort: normal Respiratory: bilateral: diminished - Cardiovascular Heart Sounds: Present: S1 & S2 Peripheral Pulses: abnormal - Integumentary Integumentary: Present: dry HEART Score - HEART Score Age: > 65 Risk factors: No known risk factors Troponin: Troponin T 0.261 ng/mL (0.00-0.029) H* D 03/12/21 04:40 Troponin: < normal limit - Critical Actions Critical Actions: 0-3 pts:0.9-1.7%risk of adverse cardiac event.Candidate for discharge Results - Labs CBC & Chem 7: 03/19/21 15:50 03/19/21 09:53 Labs: Laboratory Last Values WBC 32.3 K/mm3 (4.5-11.0) H 03/19/21 09:53 RBC 2.59 M/mm3 (3.65-5.03) L 03/19/21 09:53 Hgb 7.4 gm/dl (11.8-15.2) L 03/19/21 15:50 Hct 22.3 % (35.5-45.6) L 03/19/21 15:50 MCV 90 fl (84-94) 03/19/21 09:53 MCH 30 pg (28-32) 03/19/21 09:53 MCHC 33 % (32-34) 03/19/21 09:53 RDW 16.8 % (13.2-15.2) H 03/19/21 09:53 Plt Count 60 K/mm3 (140-440) L 03/19/21 15:50 Lymph % (Auto) 2.6 % (13.4-35.0) L 03/10/21 05:14 [place] % (Auto) 7.5 % (0.0-7.3) H 03/10/21 05:14 Eos % (Auto) 0.0 % (0.0-4.3) 03/10/21 05:14 Baso % (Auto) 0.1 % (0.0-1.8) 03/10/21 05:14 Lymph # (Auto) 0.3 K/mm3 (1.2-5.4) L 03/10/21 05:14 [place] # (Auto) 0.9 K/mm3 (0.0-0.8) H 03/10/21 05:14 Eos # (Auto) 0.0 K/mm3 (0.0-0.4) 03/10/21 05:14 Baso # (Auto) 0.0 K/mm3 (0.0-0.1) 03/10/21 05:14 Add Manual Diff Complete 03/18/21 05:00 Total Counted 100 03/18/21 05:00 Seg Neutrophils % [place] Cutter 03/18/21 05:00 Seg Neuts % (Manual) 93.0 % (40.0-70.0) H 03/18/21 05:00 Band Neutrophils % 5.0 % 03/18/21 05:00 Lymphocytes % (Manual) 2.0 % (13.4-35.0) L 03/17/21 06:30 Monocytes % (Manual) 2.0 % (0.0-7.3) 03/18/21 05:00 Nucleated RBC % Not Reportable 03/18/21 05:00 Seg Neutrophils # 10.8 K/mm3 (1.8-7.7) H 03/10/21 05:14 Seg Neutrophils # Man 33.2 K/mm3 (1.8-7.7) H 03/18/21 05:00 Band Neutrophils # 1.8 K/mm3 03/18/21 05:00 Lymphocytes # (Manual) 0.0 K/mm3 (1.2-5.4) L 03/18/21 05:00 Abs React Lymphs (Man) 0.0 K/mm3 03/18/21 05:00 Monocytes # (Manual) 0.7 K/mm3 (0.0-0.8) 03/18/21 05:00 Eosinophils # (Manual) 0.0 K/mm3 (0.0-0.4) 03/18/21 05:00 Basophils # (Manual) 0.0 K/mm3 (0.0-0.1) 03/18/21 05:00 Metamyelocytes # 0.0 K/mm3 03/18/21 05:00 Myelocytes # 0.0 K/mm3 03/18/21 05:00 Promyelocytes # 0.0 K/mm3 03/18/21 05:00 Blast Cells # 0.0 K/mm3 03/18/21 05:00 Pathologist Review 03/18/21 05:00 WBC Morphology Not Reportable 03/17/21 06:30 Hypersegmented Neuts Not Reportable 03/18/21 05:00 Hyposegmented Neuts Not Reportable 03/18/21 05:00 Hypogranular Neuts Not Reportable 03/18/21 05:00 Smudge Cells Not Reportable 03/18/21 05:00 Toxic Granulation Not Reportable 03/18/21 05:00 Toxic Vacuolation Not Reportable 03/18/21 05:00 Dohle Bodies Not Reportable 03/18/21 05:00 Pelger-Huet Anomaly Not Reportable 03/18/21 05:00 Maritza Rods Not Reportable 03/18/21 05:00 Platelet Estimate Consistent w auto 03/18/21 05:00 Clumped Platelets Not Reportable 03/18/21 05:00 Plt Clumps, EDTA Not Reportable 03/18/21 05:00 Large Platelets Not Reportable 03/18/21 05:00 Giant Platelets Not Reportable 03/18/21 05:00 Platelet Satelliting Not Reportable 03/18/21 05:00 Plt Morphology Comment Not Reportable 03/18/21 05:00 RBC Morphology Not Reportable 03/18/21 05:00 Dimorphic RBCs Not Reportable 03/18/21 05:00 Polychromasia Not Reportable 03/18/21 05:00 Hypochromasia Not Reportable 03/18/21 05:00 Poikilocytosis Not Reportable 03/18/21 05:00 Anisocytosis Few 03/18/21 05:00 Microcytosis Not Reportable 03/18/21 05:00 Macrocytosis Not Reportable 03/18/21 05:00 Spherocytes Not Reportable 03/18/21 05:00 Pappenheimer Bodies Not Reportable 03/18/21 05:00 Sickle Cells Not Reportable 03/18/21 05:00 Target Cells Not Reportable 03/18/21 05:00 Tear Drop Cells Not Reportable 03/18/21 05:00 Ovalocytes Not Reportable 03/18/21 05:00 Helmet Cells Not Reportable 03/18/21 05:00 [place] Bodies Not Reportable 03/18/21 05:00 [place] Rings Not Reportable 03/18/21 05:00 [place] Cells Not Reportable 03/18/21 05:00 Bite Cells Not Reportable 03/18/21 05:00 Crenated Cell Not Reportable 03/18/21 05:00 Elliptocytes Not Reportable 03/18/21 05:00 Acanthocytes (Spur) Not Reportable 03/18/21 05:00 Rouleaux Not Reportable 03/18/21 05:00 Hemoglobin C Crystals Not Reportable 03/18/21 05:00 Schistocytes Not Reportable 03/18/21 05:00 Malaria parasites Not Reportable 03/18/21 05:00 [place] Bodies Not Reportable 03/18/21 05:00 Hem Pathologist Commnt Sent to pathology 03/18/21 05:00 PT 14.6 Sec. (12.2-14.9) 03/11/21 21:50 INR 1.09 (0.87-1.13) 03/11/21 21:50 APTT 71.1 Sec. (24.2-36.6) H* 03/19/21 09:53 D-Dimer 832.06 ng/mlDDU (0-234) H 03/08/21 15:49 Heparin Anti-Xa Level 0.65 U.I./ml (0.3-0.7) 03/13/21 01:44 ABG pH 7.389 (7.320-7.450) 03/17/21 00:35 POC ABG pCO2 69.0 mmHg (32.0-48.0) H 03/17/21 00:35 ABG pCO2 43.0 mm Hg 03/08/21 15:12 POC ABG pO2 84.0 mmHg (83-108) 03/17/21 00:35 ABG pO2 381.9 mm Hg (80.0-90.0) H 03/08/21 15:12 POC ABG HCO3 40.7 03/17/21 00:35 ABG HCO3 31.2 mmol/L (20.0-26.0) H 03/08/21 15:12 ABG O2 Saturation 95.3 (0-100) 03/17/21 00:35 ABG O2 Content 18.9 (0.0-44) 03/08/21 15:12 POC ABG Base Excess 14.2 03/17/21 00:35 ABG Base Excess 6.9 mmol/L (-2.0-3.0) H 03/08/21 15:12 ABG Hemoglobin 7.2 (12.0-17.5) L 03/17/21 00:35 ABG Oxyhemoglobin 94.3 (94-98) 03/17/21 00:35 ABG Carboxyhemoglobin 1.5 % (0.0-5.0) 03/08/21 15:12 ABG Methemoglobin 0.3 (0.0-1.5) 03/17/21 00:35 ABG Sodium 135.0 mmol/L (136.0-145.0) L 03/17/21 00:35 ABG Potassium 3.7 mmol/L (3.40-4.50) 03/17/21 00:35 ABG Chloride 98.0 mmol/L (98-107) 03/17/21 00:35 ABG Glucose 110 mg/dL (65-95) H 03/17/21 00:35 Oxyhemoglobin 97.5 % (95.0-99.0) 03/08/21 15:12 Carboxyhemoglobin 0.8 (0.5-1.5) 03/17/21 00:35 FiO2 100 % 03/08/21 15:12 FiO2 % 70.0 03/16/21 21:59 Sodium 139 mmol/L (137-145) 03/19/21 09:53 Potassium 3.3 mmol/L (3.6-5.0) L 03/19/21 09:53 Chloride 93.9 mmol/L (98-107) L 03/19/21 09:53 Carbon Dioxide 44 mmol/L (22-30) H* 03/19/21 09:53 Anion Gap 4 mmol/L 03/19/21 09:53 BUN 21 mg/dL (9-20) H 03/19/21 09:53 Creatinine 0.9 mg/dL (0.8-1.3) 03/19/21 09:53 Estimated GFR > 60 ml/min 03/19/21 09:53 BUN/Creatinine Ratio 23 % 03/19/21 09:53 Glucose 220 mg/dL (75-100) H 03/19/21 09:53 POC Glucose 184 mg/dL (70-105) H 03/19/21 15:38 Hemoglobin A1c 5.6 % (4-6) 03/09/21 06:18 Lactic Acid 3.40 mmol/L (0.7-2.0) H* 03/08/21 15:49 Calcium 7.7 mg/dL (8.4-10.2) L 03/19/21 09:53 Phosphorus 1.90 mg/dL (2.5-4.5) L 03/18/21 05:00 Magnesium 1.60 mg/dL (1.7-2.3) L 03/18/21 05:00 Ferritin 1373.0 ng/mL (30.0-300.0) H 03/08/21 15:49 Total Bilirubin 1.00 mg/dL (0.1-1.2) 03/18/21 05:00 Direct Bilirubin 0.3 mg/dL (0-0.2) H 03/18/21 05:00 Indirect Bilirubin 0.7 mg/dL 03/18/21 05:00 AST 228 units/L (5-40) H 03/18/21 05:00 ALT 406 units/L (7-56) H 03/18/21 05:00 Alkaline Phosphatase 41 units/L (35-129) 03/18/21 05:00 Ammonia 22.0 umol/L (25-60) L 03/08/21 15:49 Lactate Dehydrogenase 209 units/L (91-180) H 03/08/21 15:49 Total Creatine Kinase 98 units/L (55-170) 03/10/21 05:14 CK-MB (CK-2) 17.8 ng/mL (0.0-4.0) H 03/10/21 05:14 CK-MB (CK-2) Rel Index 18.1 (0-4) H 03/10/21 05:14 Troponin T 0.261 ng/mL (0.00-0.029) H* D 03/12/21 04:40 C-Reactive Protein 24.00 mg/dL (0.00-1.30) H 03/08/21 15:49 Total Protein 4.8 g/dL (6.3-8.2) L 03/18/21 05:00 Albumin 2.4 g/dL (3.9-5) L 03/18/21 05:00 Albumin/Globulin Ratio 1.0 % 03/18/21 05:00 Prealbumin 0.058 g/L (0.200-0.400) L 03/09/21 00:00 Triglycerides 173 mg/dL (2-149) H 03/10/21 05:14 Cholesterol 130 mg/dL (50-199) 03/10/21 05:14 LDL Cholesterol Direct 68 mg/dL (50-130) 03/10/21 05:14 HDL Cholesterol 36 mg/dL (40-59) L 03/10/21 05:14 Cholesterol/HDL Ratio 3.61 % 03/10/21 05:14 Procalcitonin 1.35 ng/mL (<0.15) 03/08/21 15:49 TSH 2.030 mlU/mL (0.270-4.200) 03/08/21 15:49 Arterial Blood Glucose 110 mg/dL (65-95) H 03/17/21 00:35 Arterial Blood Ionized Calcium 4.0 mg/dL (4.6-5.3) L 03/17/21 00:35 Urine Color [place] (Yellow) 03/08/21 16:54 Urine Turbidity Cloudy (Clear) 03/08/21 16:54 Urine pH 5.0 (5.0-7.0) 03/08/21 16:54 Ur Specific [place] 1.019 (1.003-1.030) 03/08/21 16:54 Urine Protein 100 mg/dl mg/dL (Negative) 03/08/21 16:54 Urine Glucose (UA) Neg mg/dL (Negative) 03/08/21 16:54 Urine Ketones Tr mg/dL (Negative) 03/08/21 16:54 Urine Blood Mod (Negative) 03/08/21 16:54 Urine Nitrite Neg (Negative) 03/08/21 16:54 Urine Bilirubin Neg (Negative) 03/08/21 16:54 Urine Urobilinogen < 2.0 mg/dL (<2.0) 03/08/21 16:54 Ur Leukocyte Esterase Neg (Negative) 03/08/21 16:54 Urine WBC (Auto) 2.0 /HPF (0.0-6.0) 03/08/21 16:54 Urine RBC (Auto) 3.0 /HPF (0.0-6.0) 03/08/21 16:54 U Epithel Cells (Auto) 1.0 /HPF (0-13.0) 03/08/21 16:54 Urine Bacteria (Auto) 1+ /HPF (Negative) 03/08/21 16:54 Hyaline Casts 1 /LPF 03/08/21 16:54 Urine Mucus Few /HPF 03/08/21 16:54 Salicylates 5.6 mg/dL (2.8-20.0) 03/08/21 15:49 Acetaminophen 5.0 ug/mL (10.0-30.0) L 03/08/21 15:49 Coronavirus (PCR) Negative (Negative) 03/10/21 Unknown Blood Type B POSITIVE 03/17/21 09:20 Antibody Screen Negative 03/17/21 09:20 Crossmatch See Detail 03/17/21 09:20 Savage/IV: Voiding Method Condom Catheter Active Medications - Current Medications Current Medications: Generic Name Dose Route Start Last Admin Trade Name Freq PRN Reason Stop Dose Admin Acetaminophen 650 mg 03/08/21 21:36 Acetaminophen 325 Mg Tab PO Q4H PRN Pain MILD(1-3)/Fever >100.5/MYERS Hydrocodone Bitart/Acetaminophen 1 each 03/11/21 13:59 Hydrocodone/Acetaminophen 5-325 Mg Tab PO Q6H PRN Pain, Moderate (4-6) Albuterol 2.5 mg 03/15/21 19:28 03/19/21 05:28 Albuterol 2.5 Mg/3 Ml Nebu IH 2.5 mg Q4HRT PRN Administration Shortness Of Breath Lipase/Protease/Amylase 1 each 03/08/21 21:42 Lipase 10,500/Protease 25,000/Amylase 43,750 (Units) Dr Alex CASTTUBE PRN PRN For Clogged Feeding Tube Arformoterol Tartrate 15 mcg 03/10/21 20:00 03/19/21 08:30 Arformoterol 15 Mcg/2 Ml Nebu IH 15 mcg Q12HRT PRINCESS Administration Aspirin 81 mg 03/10/21 15:00 03/19/21 10:16 Aspirin 81 Mg Tab Chew PO 81 mg QDAY PRINCESS Administration Atorvastatin Calcium 40 mg 03/11/21 22:00 03/18/21 22:21 Atorvastatin 40 Mg Tab PO 40 mg QHS PRINCESS Administration Budesonide 0.5 mg 03/09/21 20:00 03/19/21 08:30 Budesonide 0.5 Mg/2 Ml Nebu IH 0.5 mg Q12HRT PRINCESS Administration Clopidogrel Bisulfate 75 mg 03/12/21 10:00 03/19/21 10:17 Clopidogrel 75 Mg Tab PO 75 mg QDAY PRINCESS Administration Dextrose 50 ml 03/17/21 20:20 Dextrose 50% In Water (25gm) 50 Ml Syringe IV Q30MIN PRN Hypoglycemia Protocol Haloperidol Lactate 5 mg 03/13/21 11:15 03/13/21 11:28 Haloperidol Lactate 5 Mg/1 Ml Inj IV 5 mg Q6H PRN Administration Agitation Argatroban 250 mg/ Sodium 250 mls @ 1.527 mls/hr 03/18/21 08:00 03/18/21 09:02 Chloride IV 0.5 mcg/kg/min DIRECT PRINCESS 1.527 mls/hr Administration 0.5 MCG/KG/MIN Insulin Human Lispro 0 unit 03/10/21 12:00 03/19/21 06:10 Insulin Lispro 100 Unit/Ml SUB-Q Not Given Q6HR [facility] Protocol Methylprednisolone Sodium Succinate 40 mg 03/18/21 12:00 03/19/21 10:40 Methylprednisolone Sod Succinate 40 Mg/1 Ml Inj IV 40 mg Q24HR PRINCESS Administration Metoclopramide HCl 10 mg 03/08/21 21:36 Metoclopramide 10 Mg/2 Ml Inj IV Q6H PRN Nausea And Vomiting Metoprolol Tartrate 5 mg 03/17/21 16:00 03/19/21 10:16 Metoprolol Tartrate 5 Mg/5 Ml Inj IV 5 mg Q6H PRINCESS Administration Morphine Sulfate 1 mg 03/14/21 17:07 03/16/21 09:35 Morphine 2 Mg/1 Ml Inj IV 1 mg Q4H PRN Administration Pain, Moderate (4-6) Nitroglycerin 0.4 mg 03/16/21 06:00 03/19/21 06:06 Nitroglycerin 0.4 Mg Patch 24hr TD 0.4 mg QDAY@0600 [facility] Administration Ondansetron HCl 4 mg 03/08/21 21:36 Ondansetron 4 Mg/2 Ml Inj IV Q3H PRN Nausea And Vomiting Pantoprazole Sodium 40 mg 03/13/21 13:00 03/19/21 10:40 Pantoprazole 40 Mg Inj IV 40 mg BID PRINCESS Administration Simple Syrup 15 ml 03/08/21 21:42 Simple Syrup 15 Ml FEEDTUBE PRN PRN Hypoglycemia Simple Syrup 30 ml 03/08/21 21:42 Simple Syrup 15 Ml FEEDTUBE PRN PRN Hypoglycemia Sodium Bicarbonate 325 mg 03/08/21 21:42 Sodium Bicarbonate 325 Mg Tab FEEDTUBE PRN PRN For Clogged Feeding Tube Sodium Chloride 10 ml 03/08/21 22:00 03/19/21 12:02 Sodium Chloride 0.9% 10 Ml Flush Syringe IV 10 ml BID PRINCESS Administration Sodium Chloride 10 ml 03/08/21 21:36 03/16/21 05:17 Sodium Chloride 0.9% 10 Ml Flush Syringe IV 10 ml PRN PRN Administration LINE FLUSH Sodium Phosphate 250 mg 03/18/21 14:00 03/19/21 10:16 K-Phos Neutral 250 Mg Tab PO 03/19/21 23:59 250 mg QID PRINCESS Administration Nutrition/Malnutrition Assess - Dietary Evaluation Nutrition/Malnutrition Findings: Nutrition Notes Start: 03/09/21 07:48 Freq: Status: Active Protocol: Document 03/19/21 12:17 (Rec: 03/19/21 12:21 [email or web address]) Nutrition Notes Initial or Follow up Brief Note Current Diagnosis Sepsis,Respiratory Failure Other Pertinent Diagnosis pneu, COVID PUI, anemia, AMS Current Diet Cardiac Subjective/Other Information Pt on high flow. ENGINEERING INSTRUCTOR recommends NPO. Pt will be on bipap at night, will cycle TF. Pt currently tolerating TF at 20 ml/hr. Nutrition Intervention Change Diet Order: continue Nutrition Support: 12 Hour TF Cycle: 2786-9821 hr: Osmolite 1.5 at 80 ml/hr or as tolerated. Flush 200 ml q4h or per MD Kcal 1,440 Protein (gm) 60 Fluid (mL) 732 Goal #1 Meet at least 75% of energy and protein needs via TF Anticipated Discharge Needs: cardiac Follow-Up By: 03/23/21 Additional Comments F/u: TF tolerance, respiratory status
--- NOTE | 2021-03-20 04:33 | XRay Report ---
CHEST - 1 VIEW INDICATION: hypoxia COMPARISON: 03/14/2021 FINDINGS: SUPPORT DEVICES: New Dobbhoff tube projecting below the [id number] in the region of the upper abd omen. Otherwise stable support device positioning. HEART: Stable cardiomediastinal silhouette. LUNGS/PLEURA: New moderate right-sided layering pleural effusion and mild underlying patchy airspace disease ADDITIONAL FINDINGS: None. IMPRESSION: Worsened exam. Signer Name: Ronny Solis MD Signed: 03/20/2021 4:29 AM Workstation Name: [id number]
[2021-03-20] MEDS: METOPROLOL TARTRATE 5 MG/5 ML INJ IV SCH ×4 (05:00→22:52)
[2021-03-20 05:29] LABS: Hematocrit 20.3 % (35.5-45.6); Hemoglobin 6.9 gm/dl (11.8-15.2); Mean Corpuscular HGB Conc 34 % (32-34); Mean Corpuscular Volume 90 fl (84-94); Red Blood Count 2.26 M/mm3 (3.65-5.03); Red Cell Distribution Width 15.6 % (13.2-15.2)
[2021-03-20 05:30] LABS: Platelet Count 51 K/mm3 (140-440)
[2021-03-20] MEDS: INSULIN LISPRO 100 UNIT/ML SUB-Q SCH ×4 (06:32→17:06)
[2021-03-20] MEDS: NITROGLYCERIN 0.4 MG PATCH 24HR TD SCH (06:37)
[2021-03-20] MEDS: BUDESONIDE 0.5 MG/2 ML NEBU IH SCH ×2 (07:32→23:10)
[2021-03-20] MEDS: ARFORMOTEROL 15 MCG/2 ML NEBU IH SCH ×2 (07:32→23:10)
[2021-03-20] MEDS ORDERED: ARGATROBAN 250 MG in SODIUM CHLORIDE 0.9% 250ML 247.5 ML IV SCH (08:00)
[2021-03-20 08:14] LABS: BUN/Creatinine Ratio 29; Blood Urea Nitrogen 23 mg/dL (9-20); Calcium 7.6 mg/dL (8.4-10.2); Hemolysis Index 4
[2021-03-20] MEDS ORDERED: SODIUM CHLORIDE 0.9% 500 ML 500 ML IV NR (08:14)
[2021-03-20] MEDS ORDERED: POTASSIUM CHLORIDE 20 MEQ PACKET FEEDTUBE ONE (09:00)
[2021-03-20] MEDS: PANTOPRAZOLE 40 MG INJ IV SCH ×2 (09:19→22:51)
[2021-03-20] MEDS: ASPIRIN 81 MG TAB CHEW PO SCH (09:19)
[2021-03-20] MEDS: CLOPIDOGREL 75 MG TAB PO SCH (09:19)
[2021-03-20] MEDS: methylPREDNISolone Sod Succinate 40 MG/1 ML INJ IV SCH (09:20)
[2021-03-20] MEDS ORDERED: MAGNESIUM SULFATE 2 GM/50 ML BAG IV ONE (10:00)
--- NOTE | 2021-03-20 11:48 | Progress Note ---
Assessment and Plan While hospitalized suffered an Acute ST elevation myocardial infarction complicated by ventricular fibrillation arrest; on oral amiodarone. s/p PCI of the mid LAD using drug-eluting stent; on plavix and aspirin. LVEF 35-40% by echo Severe Anemia Right Pleural effusion, moderate Acute respiratory failure COPD exacerbation Altered mental status Hx of COPD Bilateral PAD Continue optimal medical therapy for coronary artery disease, and underlying ischemic cardiomyopathy. Otherwise, conservative cardiac management. Subjective Date of service: 03/20/21 Principal diagnosis: Respiratory distress, SC, Pseudoaneurysm Interval history: Resting in bed and appears comfortable. Venturi mask is in place. A repeat CXR today shows moderate right pleural effusion. Labs today shows severe anemia, HCT 20.3. Patient completed low dosw Argatroban on 03/19. Objective Vital Signs Temp Pulse Pulse Resp Resp BP Pulse Ox 03/20/21 10:30 90 16 132/64 99 03/20/21 10:01 90 21 149/55 100 03/20/21 09:30 95 H 18 130/60 100 03/20/21 09:01 104 H 21 167/74 100 03/20/21 08:30 95 H 13 124/59 100 03/20/21 08:00 92 H 92 H 18 20 130/60 91 03/20/21 07:32 91 H 20 98 03/20/21 07:30 90 15 130/54 93 03/20/21 07:01 93 H 16 145/55 94 03/20/21 06:37 98 H 139/58 03/20/21 06:31 98 H 17 139/58 86 03/20/21 06:00 101 H 18 154/64 92 03/20/21 05:31 115 H 23 156/58 90 03/20/21 05:01 99 H 21 135/43 90 03/20/21 04:31 94 H 15 129/53 91 03/20/21 04:00 96 H 17 138/54 77 L 03/20/21 03:49 97.8 F 03/20/21 03:30 100 H 18 131/63 95 03/20/21 03:01 117 H 23 166/92 96 03/20/21 02:31 104 H 23 161/63 94 03/20/21 02:01 105 H 19 155/55 94 03/20/21 01:31 102 H 21 135/58 93 03/20/21 01:01 102 H 25 H 126/60 87 03/20/21 00:52 97.8 F 03/20/21 00:31 103 H 16 155/67 03/20/21 00:01 99 H 18 153/54 94 03/20/21 00:00 94 03/19/21 23:31 93 H 18 148/61 100 03/19/21 23:00 96 H 18 128/71 99 03/19/21 22:39 111 H 160/60 03/19/21 22:31 124 H 26 H 112/91 95 03/19/21 22:01 106 H 22 124/41 89 03/19/21 22:00 97 03/19/21 21:30 100 H 19 137/53 88 03/19/21 21:03 96 H 15 142/62 95 03/19/21 21:00 99 H 19 150/59 03/19/21 20:31 100 H 18 132/59 100 03/19/21 20:25 101 H 15 142/62 99 03/19/21 20:01 25 H 59/28 95 03/19/21 20:00 94 03/19/21 19:31 101 H 17 116/45 95 03/19/21 19:00 91 H 15 116/45 95 03/19/21 18:31 96 H 16 83 L 03/19/21 18:01 100 H 22 116/41 92 03/19/21 17:31 112 H 25 H 116/41 82 L 03/19/21 17:01 92 H 15 116/41 97 03/19/21 16:31 91 H 15 86/68 98 03/19/21 16:20 96 03/19/21 16:01 89 16 54/26 97 03/19/21 16:00 97.5 F L 78 03/19/21 15:31 94 H 15 82/35 97 03/19/21 15:01 92 H 16 118/70 96 03/19/21 14:31 94 H 19 130/45 96 03/19/21 14:01 95 H 17 142/53 95 03/19/21 13:31 106 H 24 184/159 97 03/19/21 13:01 87 15 118/49 98 03/19/21 12:30 85 17 106/42 99 03/19/21 12:10 98 03/19/21 12:01 86 16 87/48 98 03/19/21 12:00 98.5 F 85 - Physical Examination General: No Apparent Distress HEENT: Positive: PERRL Neck: Positive: neck supple Cardiac: Positive: Reg Rate and Rhythm Lungs: Positive: Decreased Breath Sounds Neuro: Positive: Weakness Extremities: Absent: edema - Labs and Meds Coagulation 03/19/21 03/20/21 Range/Units 21:00 04:47 APTT 80.5 H* 105.0 H* (24.2-36.6) Sec. CBC 03/19/21 03/20/21 Range/Units 15:50 04:47 WBC 29.6 H (4.5-11.0) K/mm3 RBC 2.26 L (3.65-5.03) M/mm3 Hgb 7.4 L 6.9 L (11.8-15.2) gm/dl Hct 22.3 L 20.3 L (35.5-45.6) % Plt Count 60 L 51 L (140-440) K/mm3 Comprehensive Metabolic Panel 03/20/21 Range/Units 04:47 Sodium 139 (137-145) mmol/L Potassium 3.3 L (3.6-5.0) mmol/L Chloride 92.4 L (98-107) mmol/L Carbon Dioxide 47 H* (22-30) mmol/L BUN 23 H (9-20) mg/dL Creatinine 0.8 (0.8-1.3) mg/dL Glucose 154 H (75-100) mg/dL Calcium 7.6 L (8.4-10.2) mg/dL
--- NOTE | 2021-03-20 12:38 | Progress Note ---
Assessment and Plan Assessment and plan: This is 65-year-old male with COPD on 2 L home oxygen, ongoing tobacco abuse, history of vascular dementia admitted for sepsis, STEMI and V. tach cardiac arrest s/p cardiac cath with PCI, right foot ischemia/cyanosis with cold extremities, retroperitoneal/iliopsoas hematoma Neuro: Acute encephalopathy, h/o vascular dementia, cerebral sclerosis -Patient is alert and oriented on examination -Patient is from [place] -Avoid delirium -Reorientation as needed -CT head showed no acute infarct but extensive atherosclerotic disease with calcification -Continue aspirin, statin and Plavix -Bilateral restraints for safety Cardiology: S/p V. tach arrest 03/10, STEMI, acute systolic congestive heart failure with EF of 35 to 40% -S/p ACLS with shock and placed on amiodarone -S/p PCI to mid LAD and successful deployment of JARED -Cardiology consulted, appreciate recommendations -Aggrastat drip -Aspirin, statin, Plavix, beta-avery -S/p Levophed drip Respiratory: Acute on chronic respiratory failure with hypoxia, COPD exacerbation, nicotine abuse, ? Left pneumothorax -CCM and surgery consulted, appreciate recommendations -2 L nasal cannula at home -S/p intubation in the emergency department now extubated -BiPAP nightly -Patient seems to be able to be weaned to Venturi mask during the day however requires higher oxygenation at night. -Pulmonary hygiene -Continue SPO2 monitoring -S/p needle decompression and chest tube placement -03/08 CTA Chest: BL LL PNA noted, small left apical pneumo appreciated. GI: Possible GI bleed, transaminitis -GI and ntr consulted, appreciate recommendations -Protonix -TF at goal -Trend CBC, LFTs -Avoid hypoglycemia -ST eval recommends NPO : NAD -condom cath Endo: Hypoglycemia -SSI -Accu-Cheks q6 -Avoid hypoglycemia ID: Severe sepsis with shock, bilateral pneumonia, Leukocytosis -Patient disease consulted, patient recommendations -S/p cefepime -S/p vasopressor support -Monitor for signs and symptoms of infection and fever curve -Leukocytosis may be r/t steroids Heme: Acute on chronic anemia, thrombocytopenia, Right iliopsoas hematoma, ruled out HIT, right foot ischemia -Hematology/oncology and vascular surgery consulted, appreciate recommendations -Argatroban drip -IV steroids per Hem/Onc -Transfuse one unit prbc today -Trend CBC -HIT negative -Transfuse for hemoglobin less than 7 or hematocrit less than 23 (per heme/onc) -COVID pcr negative x2 -S/p 4 units PRBC The high probability of a clinically significant, sudden or life threatening deterioration of the [multi] system(s) required my full and direct attention, intervention and personal management. The aggregate critical care time was [60] minutes. This time is in addition to time spent performing reported procedures but includes the following: [x] Data Review and interpretation [x] Patient assessment and monitoring of vital signs [x] Documentation [x] Medication orders and management Disposition Plan: icu Total Time Spent with Patient (Minutes): 60 History Interval history: This is a 65-year-old male with COPD on 2L home O2, ongoing tobacco abuse and h/o vascular dementia brought to hospital by EMS for altered mental status and respiratory failure. On EMS arrival patient had a temperature 102.3, severely hypoxic with diminished breath sounds in the left side and there was a concern for pneumothorax on the left side. EMS performed a decompression of the left hemothorax but upon arrival to the emergency room EMS placed the chest tub e/catheter became dislodged. Stat chest x-ray showed no obvious left-sided pneumothorax. Given altered mental status and respiratory failure with history of hypoxia patient was intubated by the ED physician. Code sepsis was called and the patient was admitted to ICU for further stabilization and Mx. He is neg for COVID x2. His hospital stay got complicated with STEMI and V. tach cardiac arrest, S/p cardiac cath with PCI to mid LAD by cardiology and following cardiac cath he developed right foot ischemia/cyanosis with cold extremity - placed on heparin drip, h/h declined with black tarry stool x2 and CT abdomen suggesting of retroperitoneal/iliopsoas hematoma. Heparin drip has been discont inued, patient transfused 2 units of packed RBC. Consultants include: CCM, GI, Cardiology, Hematology/Oncology 03/09: Hypotensive in AM, Dr. Inman placed right IJ CVC. Patient intiated on pressors. UOP 200 cc overnight. 03/10: Planned for extubation today, repeat covid test pending. RN called for el evated trop - ordered serial trop, ekg, 2d echo, aspirin, statin and placed cardiology consult. will cont to follow clinically, pt remains on levophed 03/11: Patient had Vtech cardiac arrest last night. EKG showed acute STEMI. placed on amioderone and heparin drip. S/p PCI today with stent placement, discontinued heparin drip and started on Aggrastat. Patient now noted with cold bluish LE right>left. Discussed with Dr Armstrong and recommended to initiate low intensity heparin drip after sheath was removed. Placed order and discussed the plan with nurse and pharmacy. Ordered stat lower extremity arterial Doppler and consulted vascular surgeon. Patient remains on Ventimask with 10 to 15 L of O2. Patient also remains confused, continue supportive care and follow clinically. 03/12/21: LE remain clod and cyanotic, R> L. cont heparin drip, monitor h/h. vascular procedure when clinically more stable. discussed with daughter and updated with all clinical details. pt remains on pressor. critically ill. 03/13/21; Patient had bloody BM this am. stop heparin, start protonix IV BID. follow h/h, cont pressor, transfuse 2units PRBC. mental status declined - remains agitated and restrained. Requiring pressor support. Ordered for CT abdomen pelvis for profound anemia. platient was placed on bicarbonate drip for severe acidosis. pulled out first central line, new rIJ placed 03/14/21: CT abdomen pelvis suggestive of moderate right iliopsoas hematoma, continue to follow H&H and consult general surgery. pt on BIPAP today, h/h stable. hold ACEI/spiranolactone for GAURAV. d/c bicarbonate drip as pt becoming alkalotic. patient remains confused and agitated - on restraint 03/15/21: patient on 4L n/c today, remains lethargic, H&H stable after 2 units of packed RBC on 03/13. Remains off anticoagulation due to low platelets. Very poor prognosis, vascular following for retroperitoneal hematoma. GI recommended medical management for now possible GI bleed. Per GI patient is not stable from respiratory standpoint for endoscopy. Extremely poor prognosis, will update family. Continue to monitor clinically 03/16/21: updated both daughter in details. Patient placed back on BiPAP, repeat H&H and BMP ordered. Noted improved renal function, try to initiate tube feeding today. Platelet count continues to decline -we will consult hematology. Continue to hold anticoagulation. We will initiate aspirin and Plavix after placing Dobbhoff tube. Discussed CODE STATUS and poor prognosis with patient daughters and they stated they will decide soon. 8/10: Argatroban was stopped by cardiology be resumed by heme/oncology who also wants to continue Solu-Medrol and transfuse 1 unit PRBC if hematocrit less than 23. Patient was preloaded with Plavix and the need on daily dose of Plavix and aspirin per cardiology also stop argatroban today due to further evidence of possible possible bleeding and drop in hematocrit. 03/18/21: Argatroban restarted this morning by heme, Accu-Cheks every 4, started on D10 and per RN request placed on mechanical soft diet. Reviewed ST no which recommends NPO. 03/19: Vascular surgery plans to revascularize early next week, will order BiPAP nightly, continue argatroban. Patient is on tube feedings and we will stop D10. Lasix x1. 03/20: Patient was not on Bipap overnight. Remains on argatoban gtt. Tolerating TF. H/H 6.9/20.3 and ordered one unit prbc. Hospitalist Physical - Constitutional Vitals: Temp Pulse Resp BP Pulse Ox 97.8 F 90 16 132/64 99 03/20/21 03:49 03/20/21 10:30 03/20/21 10:30 03/20/21 10:30 03/20/21 10:30 General appearance: Present: no acute distress - EENT Eyes: Present: PERRL ENT: poor dentition - Neck Neck: Present: normal ROM - Respiratory Respiratory effort: normal Respiratory: bilateral: diminished HEART Score - HEART Score Age: > 65 Risk factors: No known risk factors Troponin: Troponin T 0.261 ng/mL (0.00-0.029) H* D 03/12/21 04:40 Troponin: < normal limit - Critical Actions Critical Actions: 0-3 pts:0.9-1.7%risk of adverse cardiac event.Candidate for discharge Results - Labs CBC & Chem 7: 03/20/21 04:47 03/20/21 04:47 Labs: Laboratory Last Values WBC 29.6 K/mm3 (4.5-11.0) H 03/20/21 04:47 RBC 2.26 M/mm3 (3.65-5.03) L 03/20/21 04:47 Hgb 6.9 gm/dl (11.8-15.2) L 03/20/21 04:47 Hct 20.3 % (35.5-45.6) L 03/20/21 04:47 MCV 90 fl (84-94) 03/20/21 04:47 MCH 30 pg (28-32) 03/20/21 04:47 MCHC 34 % (32-34) 03/20/21 04:47 RDW 15.6 % (13.2-15.2) H 03/20/21 04:47 Plt Count 51 K/mm3 (140-440) L 03/20/21 04:47 Lymph % (Auto) 2.6 % (13.4-35.0) L 03/10/21 05:14 Lucas % (Auto) 7.5 % (0.0-7.3) H 03/10/21 05:14 Eos % (Auto) 0.0 % (0.0-4.3) 03/10/21 05:14 Baso % (Auto) 0.1 % (0.0-1.8) 03/10/21 05:14 Lymph # (Auto) 0.3 K/mm3 (1.2-5.4) L 03/10/21 05:14 Lucas # (Auto) 0.9 K/mm3 (0.0-0.8) H 03/10/21 05:14 Eos # (Auto) 0.0 K/mm3 (0.0-0.4) 03/10/21 05:14 Baso # (Auto) 0.0 K/mm3 (0.0-0.1) 03/10/21 05:14 Add Manual Diff Complete 03/18/21 05:00 Total Counted 100 03/18/21 05:00 Seg Neutrophils % Brand Analyst 03/18/21 05:00 Seg Neuts % (Manual) 93.0 % (40.0-70.0) H 03/18/21 05:00 Band Neutrophils % 5.0 % 03/18/21 05:00 Lymphocytes % (Manual) 2.0 % (13.4-35.0) L 03/17/21 06:30 Monocytes % (Manual) 2.0 % (0.0-7.3) 03/18/21 05:00 Nucleated RBC % Not Reportable 03/18/21 05:00 Seg Neutrophils # 10.8 K/mm3 (1.8-7.7) H 03/10/21 05:14 Seg Neutrophils # Man 33.2 K/mm3 (1.8-7.7) H 03/18/21 05:00 Band Neutrophils # 1.8 K/mm3 03/18/21 05:00 Lymphocytes # (Manual) 0.0 K/mm3 (1.2-5.4) L 03/18/21 05:00 Abs React Lymphs (Man) 0.0 K/mm3 03/18/21 05:00 Monocytes # (Manual) 0.7 K/mm3 (0.0-0.8) 03/18/21 05:00 Eosinophils # (Manual) 0.0 K/mm3 (0.0-0.4) 03/18/21 05:00 Basophils # (Manual) 0.0 K/mm3 (0.0-0.1) 03/18/21 05:00 Metamyelocytes # 0.0 K/mm3 03/18/21 05:00 Myelocytes # 0.0 K/mm3 03/18/21 05:00 Promyelocytes # 0.0 K/mm3 03/18/21 05:00 Blast Cells # 0.0 K/mm3 03/18/21 05:00 Pathologist Review 03/18/21 05:00 WBC Morphology Not Reportable 03/17/21 06:30 Hypersegmented Neuts Not Reportable 03/18/21 05:00 Hyposegmented Neuts Not Reportable 03/18/21 05:00 Hypogranular Neuts Not Reportable 03/18/21 05:00 Smudge Cells Not Reportable 03/18/21 05:00 Toxic Granulation Not Reportable 03/18/21 05:00 Toxic Vacuolation Not Reportable 03/18/21 05:00 Dohle Bodies Not Reportable 03/18/21 05:00 Pelger-Huet Anomaly Not Reportable 03/18/21 05:00 Maritza Rods Not Reportable 03/18/21 05:00 Platelet Estimate Consistent w auto 03/18/21 05:00 Clumped Platelets Not Reportable 03/18/21 05:00 Plt Clumps, EDTA Not Reportable 03/18/21 05:00 Large Platelets Not Reportable 03/18/21 05:00 Giant Platelets Not Reportable 03/18/21 05:00 Platelet Satelliting Not Reportable 03/18/21 05:00 Plt Morphology Comment Not Reportable 03/18/21 05:00 RBC Morphology Not Reportable 03/18/21 05:00 Dimorphic RBCs Not Reportable 03/18/21 05:00 Polychromasia Not Reportable 03/18/21 05:00 Hypochromasia Not Reportable 03/18/21 05:00 Poikilocytosis Not Reportable 03/18/21 05:00 Anisocytosis Few 03/18/21 05:00 Microcytosis Not Reportable 03/18/21 05:00 Macrocytosis Not Reportable 03/18/21 05:00 Spherocytes Not Reportable 03/18/21 05:00 Pappenheimer Bodies Not Reportable 03/18/21 05:00 Sickle Cells Not Reportable 03/18/21 05:00 Target Cells Not Reportable 03/18/21 05:00 Tear Drop Cells Not Reportable 03/18/21 05:00 Ovalocytes Not Reportable 03/18/21 05:00 Helmet Cells Not Reportable 03/18/21 05:00 Gautam-Mullen Bodies Not Reportable 03/18/21 05:00 [place] Rings Not Reportable 03/18/21 05:00 [place] Cells Not Reportable 03/18/21 05:00 Bite Cells Not Reportable 03/18/21 05:00 Crenated Cell Not Reportable 03/18/21 05:00 Elliptocytes Not Reportable 03/18/21 05:00 Acanthocytes (Spur) Not Reportable 03/18/21 05:00 Rouleaux Not Reportable 03/18/21 05:00 Hemoglobin C Crystals Not Reportable 03/18/21 05:00 Schistocytes Not Reportable 03/18/21 05:00 Malaria parasites Not Reportable 03/18/21 05:00 Timoteo Bodies Not Reportable 03/18/21 05:00 Hem Pathologist Commnt Sent to pathology 03/18/21 05:00 PT 14.6 Sec. (12.2-14.9) 03/11/21 21:50 INR 1.09 (0.87-1.13) 03/11/21 21:50 APTT 105.0 Sec. (24.2-36.6) H* 03/20/21 04:47 D-Dimer 832.06 ng/mlDDU (0-234) H 03/08/21 15:49 Heparin Anti-Xa Level 0.65 U.I./ml (0.3-0.7) 03/13/21 01:44 ABG pH 7.389 (7.320-7.450) 03/17/21 00:35 POC ABG pCO2 69.0 mmHg (32.0-48.0) H 03/17/21 00:35 ABG pCO2 43.0 mm Hg 03/08/21 15:12 POC ABG pO2 84.0 mmHg (83-108) 03/17/21 00:35 ABG pO2 381.9 mm Hg (80.0-90.0) H 03/08/21 15:12 POC ABG HCO3 40.7 03/17/21 00:35 ABG HCO3 31.2 mmol/L (20.0-26.0) H 03/08/21 15:12 ABG O2 Saturation 95.3 (0-100) 03/17/21 00:35 ABG O2 Content 18.9 (0.0-44) 03/08/21 15:12 POC ABG Base Excess 14.2 03/17/21 00:35 ABG Base Excess 6.9 mmol/L (-2.0-3.0) H 03/08/21 15:12 ABG Hemoglobin 7.2 (12.0-17.5) L 03/17/21 00:35 ABG Oxyhemoglobin 94.3 (94-98) 03/17/21 00:35 ABG Carboxyhemoglobin 1.5 % (0.0-5.0) 03/08/21 15:12 ABG Methemoglobin 0.3 (0.0-1.5) 03/17/21 00:35 ABG Sodium 135.0 mmol/L (136.0-145.0) L 03/17/21 00:35 ABG Potassium 3.7 mmol/L (3.40-4.50) 03/17/21 00:35 ABG Chloride 98.0 mmol/L (98-107) 03/17/21 00:35 ABG Glucose 110 mg/dL (65-95) H 03/17/21 00:35 Oxyhemoglobin 97.5 % (95.0-99.0) 03/08/21 15:12 Carboxyhemoglobin 0.8 (0.5-1.5) 03/17/21 00:35 FiO2 100 % 03/08/21 15:12 FiO2 % 70.0 03/16/21 21:59 Sodium 139 mmol/L (137-145) 03/20/21 04:47 Potassium 3.3 mmol/L (3.6-5.0) L 03/20/21 04:47 Chloride 92.4 mmol/L (98-107) L 03/20/21 04:47 Carbon Dioxide 47 mmol/L (22-30) H* 03/20/21 04:47 Anion Gap 3 mmol/L 03/20/21 04:47 BUN 23 mg/dL (9-20) H 03/20/21 04:47 Creatinine 0.8 mg/dL (0.8-1.3) 03/20/21 04:47 Estimated GFR > 60 ml/min 03/20/21 04:47 BUN/Creatinine Ratio 29 % 03/20/21 04:47 Glucose 154 mg/dL (75-100) H 03/20/21 04:47 POC Glucose 203 mg/dL (70-105) H 03/20/21 11:59 Hemoglobin A1c 5.6 % (4-6) 03/09/21 06:18 Lactic Acid 3.40 mmol/L (0.7-2.0) H* 03/08/21 15:49 Calcium 7.6 mg/dL (8.4-10.2) L 03/20/21 04:47 Phosphorus 2.60 mg/dL (2.5-4.5) 03/20/21 04:47 Magnesium 1.70 mg/dL (1.7-2.3) 03/20/21 04:47 Ferritin 1373.0 ng/mL (30.0-300.0) H 03/08/21 15:49 Total Bilirubin 1.00 mg/dL (0.1-1.2) 03/18/21 05:00 Direct Bilirubin 0.3 mg/dL (0-0.2) H 03/18/21 05:00 Indirect Bilirubin 0.7 mg/dL 03/18/21 05:00 AST 228 units/L (5-40) H 03/18/21 05:00 ALT 406 units/L (7-56) H 03/18/21 05:00 Alkaline Phosphatase 41 units/L (35-129) 03/18/21 05:00 Ammonia 22.0 umol/L (25-60) L 03/08/21 15:49 Lactate Dehydrogenase 209 units/L (91-180) H 03/08/21 15:49 Total Creatine Kinase 98 units/L (55-170) 03/10/21 05:14 CK-MB (CK-2) 17.8 ng/mL (0.0-4.0) H 03/10/21 05:14 CK-MB (CK-2) Rel Index 18.1 (0-4) H 03/10/21 05:14 Troponin T 0.261 ng/mL (0.00-0.029) H* D 03/12/21 04:40 C-Reactive Protein 24.00 mg/dL (0.00-1.30) H 03/08/21 15:49 Total Protein 4.8 g/dL (6.3-8.2) L 03/18/21 05:00 Albumin 2.4 g/dL (3.9-5) L 03/18/21 05:00 Albumin/Globulin Ratio 1.0 % 03/18/21 05:00 Prealbumin 0.058 g/L (0.200-0.400) L 03/09/21 00:00 Triglycerides 173 mg/dL (2-149) H 03/10/21 05:14 Cholesterol 130 mg/dL (50-199) 03/10/21 05:14 LDL Cholesterol Direct 68 mg/dL (50-130) 03/10/21 05:14 HDL Cholesterol 36 mg/dL (40-59) L 03/10/21 05:14 Cholesterol/HDL Ratio 3.61 % 03/10/21 05:14 Procalcitonin 1.35 ng/mL (<0.15) 03/08/21 15:49 TSH 2.030 mlU/mL (0.270-4.200) 03/08/21 15:49 Arterial Blood Glucose 110 mg/dL (65-95) H 03/17/21 00:35 Arterial Blood Ionized Calcium 4.0 mg/dL (4.6-5.3) L 03/17/21 00:35 Urine Color Maren (Yellow) 03/08/21 16:54 Urine Turbidity Cloudy (Clear) 03/08/21 16:54 Urine pH 5.0 (5.0-7.0) 03/08/21 16:54 Ur Specific [place] 1.019 (1.003-1.030) 03/08/21 16:54 Urine Protein 100 mg/dl mg/dL (Negative) 03/08/21 16:54 Urine Glucose (UA) Neg mg/dL (Negative) 03/08/21 16:54 Urine Ketones Tr mg/dL (Negative) 03/08/21 16:54 Urine Blood Mod (Negative) 03/08/21 16:54 Urine Nitrite Neg (Negative) 03/08/21 16:54 Urine Bilirubin Neg (Negative) 03/08/21 16:54 Urine Urobilinogen < 2.0 mg/dL (<2.0) 03/08/21 16:54 Ur Leukocyte Esterase Neg (Negative) 03/08/21 16:54 Urine WBC (Auto) 2.0 /HPF (0.0-6.0) 03/08/21 16:54 Urine RBC (Auto) 3.0 /HPF (0.0-6.0) 03/08/21 16:54 U Epithel Cells (Auto) 1.0 /HPF (0-13.0) 03/08/21 16:54 Urine Bacteria (Auto) 1+ /HPF (Negative) 03/08/21 16:54 Hyaline Casts 1 /LPF 03/08/21 16:54 Urine Mucus Few /HPF 03/08/21 16:54 Salicylates 5.6 mg/dL (2.8-20.0) 03/08/21 15:49 Acetaminophen 5.0 ug/mL (10.0-30.0) L 03/08/21 15:49 Coronavirus (PCR) Negative (Negative) 03/10/21 Unknown Blood Type B POSITIVE 03/17/21 09:20 Antibody Screen Negative 03/17/21 09:20 Crossmatch See Detail 03/17/21 09:20 Savage/IV: Voiding Method Condom Catheter Active Medications - Current Medications Current Medications: Generic Name Dose Route Start Last Admin Trade Name Freq PRN Reason Stop Dose Admin Acetaminophen 650 mg 03/08/21 21:36 Acetaminophen 325 Mg Tab PO Q4H PRN Pain MILD(1-3)/Fever >100.5/MYERS Hydrocodone Bitart/Acetaminophen 1 each 03/11/21 13:59 Hydrocodone/Acetaminophen 5-325 Mg Tab PO Q6H PRN Pain, Moderate (4-6) Albuterol 2.5 mg 03/15/21 19:28 03/19/21 05:28 Albuterol 2.5 Mg/3 Ml Nebu IH 2.5 mg Q4HRT PRN Administration Shortness Of Breath Lipase/Protease/Amylase 1 each 03/08/21 21:42 Lipase 10,500/Protease 25,000/Amylase 43,750 (Units) Dr Johnson FEEDTUBE PRN PRN For Clogged Feeding Tube Arformoterol Tartrate 15 mcg 03/10/21 20:00 03/20/21 07:32 Arformoterol 15 Mcg/2 Ml Nebu IH 15 mcg Q12HRT PRINCESS Administration Aspirin 81 mg 03/10/21 15:00 03/20/21 09:19 Aspirin 81 Mg Tab Chew PO 81 mg QDAY PRINCESS Administration Atorvastatin Calcium 40 mg 03/11/21 22:00 03/19/21 22:39 Atorvastatin 40 Mg Tab PO 40 mg QHS PRINCESS Administration Budesonide 0.5 mg 03/09/21 20:00 03/20/21 07:32 Budesonide 0.5 Mg/2 Ml Nebu IH 0.5 mg Q12HRT PRINCESS Administration Clopidogrel Bisulfate 75 mg 03/12/21 10:00 03/20/21 09:19 Clopidogrel 75 Mg Tab PO 75 mg QDAY PRINCESS Administration Dextrose 50 ml 03/17/21 20:20 Dextrose 50% In Water (25gm) 50 Ml Syringe IV Q30MIN PRN Hypoglycemia Protocol Haloperidol Lactate 5 mg 03/13/21 11:15 03/13/21 11:28 Haloperidol Lactate 5 Mg/1 Ml Inj IV 5 mg Q6H PRN Administration Agitation Argatroban 250 mg/ Sodium 250 mls @ 1.527 mls/hr 03/20/21 08:00 Chloride IV DIRECT PRINCESS 0.5 MCG/KG/MIN Sodium Chloride 500 mls @ 0 mls/hr 03/20/21 08:14 Nacl 0.9% 500 Ml IV 03/20/21 23:59 ONCE NR As Directed Insulin Human Lispro 0 unit 03/10/21 12:00 03/20/21 06:38 Insulin Lispro 100 Unit/Ml SUB-Q 2 unit Q6HR PRINCESS Administration Protocol Methylprednisolone Sodium Succinate 40 mg 03/18/21 12:00 03/20/21 09:20 Methylprednisolone Sod Succinate 40 Mg/1 Ml Inj IV 40 mg Q24HR PRINCESS Administration Metoclopramide HCl 10 mg 03/08/21 21:36 Metoclopramide 10 Mg/2 Ml Inj IV Q6H PRN Nausea And Vomiting Metoprolol Tartrate 5 mg 03/17/21 16:00 03/20/21 09:23 Metoprolol Tartrate 5 Mg/5 Ml Inj IV 5 mg Q6H PRINCESS Administration Morphine Sulfate 1 mg 03/14/21 17:07 03/16/21 09:35 Morphine 2 Mg/1 Ml Inj IV 1 mg Q4H PRN Administration Pain, Moderate (4-6) Nitroglycerin 0.4 mg 03/16/21 06:00 03/20/21 06:37 Nitroglycerin 0.4 Mg Patch 24hr TD 0.4 mg QDAY@0600 PRINCESS Administration Ondansetron HCl 4 mg 03/08/21 21:36 Ondansetron 4 Mg/2 Ml Inj IV Q3H PRN Nausea And Vomiting Pantoprazole Sodium 40 mg 03/13/21 13:00 03/20/21 09:19 Pantoprazole 40 Mg Inj IV 40 mg BID PRINCESS Administration Simple Syrup 15 ml 03/08/21 21:42 Simple Syrup 15 Ml FEEDTUBE PRN PRN Hypoglycemia Simple Syrup 30 ml 03/08/21 21:42 Simple Syrup 15 Ml FEEDTUBE PRN PRN Hypoglycemia Sodium Bicarbonate 325 mg 03/08/21 21:42 Sodium Bicarbonate 325 Mg Tab FEEDTUBE PRN PRN For Clogged Feeding Tube Sodium Chloride 10 ml 03/08/21 22:00 03/20/21 09:20 Sodium Chloride 0.9% 10 Ml Flush Syringe IV 10 ml BID PRINCESS Administration Sodium Chloride 10 ml 03/08/21 21:36 03/16/21 05:17 Sodium Chloride 0.9% 10 Ml Flush Syringe IV 10 ml PRN PRN Administration LINE FLUSH Nutrition/Malnutrition Assess - Dietary Evaluation Nutrition/Malnutrition Findings: Nutrition Notes Start: 03/09/21 07:48 Freq: Status: Active Protocol: Document 03/19/21 12:17 JEROME (Rec: 03/19/21 12:21 JEROME [id number]) Nutrition Notes Initial or Follow up Brief Note Current Diagnosis Sepsis,Respiratory Failure Other Pertinent Diagnosis pneu, COVID PUI, anemia, AMS Current Diet Cardiac Subjective/Other Information Pt on high flow. WINDING INSPECTOR recommends NPO. Pt will be on bipap at night, will cycle TF. Pt currently tolerating TF at 20 ml/hr. Nutrition Intervention Change Diet Order: continue Nutrition Support: 12 Hour TF Cycle: 2937-0229 hr: Osmolite 1.5 at 80 ml/hr or as tolerated. Flush 200 ml q4h or per MD Kcal 1,440 Protein (gm) 60 Fluid (mL) 732 Goal #1 Meet at least 75% of energy and protein needs via TF Anticipated Discharge Needs: cardiac Follow-Up By: 03/23/21 Additional Comments F/u: TF tolerance, respiratory status
--- NOTE | 2021-03-20 12:51 | Progress Note ---
Assessment and Plan 65 y/o male with acute respiratory, exact etiology unknown 03/20/21: Still with concern in regards to argotroban use and now with continued decrease in platelets and slow drop in hemoglobin. Very low threshold to stop if needed. Feeding tube in place and tolerating. Will discuss with RT reasoning for order for bipap therapy. CXR does shows right sided effusion, but no plans to do thora at this time, given increased risk of bleeding. Hold on lasix today. Replace electrolytes. Will continue ICU monitoring. Very very guarded prognosis. Per vascular, attempt to revascularize leg on early part of next week. 03/19/21: No evidence of bleeding and H/H has been stable. Continue argatroban. Vascular plans for revascularization on next week. Now that on feeds and tolerating will stop D10. Continue q4 FSBS for the next 24 hours then reassess tomorrow. Lasix 20mg IV x1 today. Desats at night maybe from central sleep apnea given low EF. Will order bipap QHS and hopeful diuresis will help with this too. Continue bronchodilator therapy. Steroids are per heme. Will continue to follow. 03/18/21: Spoke with Heme over the phone, agree with current plan in regards to the lowest dose of argatroban. I have increased the frequency of H/H checks to q6 and plan is if the HgB drops more than 2 points to stop the anticoagulation. He is also not eating, so he is currently on D10. Will attempt to place dobb- josep and tube feeds. Continue q4 hour FSBS to make sure severe hypoglycemia does not occur. Wean FiO2 for sats >88%. Continue pulmicort and brovana therapy. May need nicotine patch. 03/13/21: Clinically appears stable. HgB is down to 9.1, came in at 13 but this may heme concentrated. Appears stable for transfer]. Medical therapy for CAD. Will change steroids to 40q8 03/12/21: Clinically appears stable. Will discuss with cards but I feel patient is stable for step down vs tele. Likely no tele beds available but could down grade and keep in unit. Will discuss and make a decision later today. 03/11/21: Follow up cath results. Monitor volume status. Maintain potassium of 4 and mag of 2. monitor renal function. Goal directed medical therapy. Wean FiO2 for sats >88% down to baseline of 2 liters NC. Will continue to follow. Smoking cessation. 03/10/21: Sedation stopped and now discontinued from OCT. 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 The repeat EKG still shows some ST elevation in V3 but T waves have inverted V4, V5 and V6. Per the tech, the tech from yesterday did an EKG off the wrong order but the EKG showing ST elevations was not shown to a physician. Will order Troponin now and obtain 2D echo once COVID results are back. At this point, pending these labs will determine cardiology consult. As stated before, hemodynamically the patient is stable. Tech needs order for EKG but as I explained, not able to back date an order and there was not an order for that EKG to begin with. Very difficult case in regards to EKG. Will speak with risk about this. 1. Continue supportive measures 2. CXR is stable and IJ in good position 3. Per Nurse, patient has COPD and chronic respiratory failure and is still smoking. Guarded prognosis Subjective Date of service: 03/20/21 Principal diagnosis: Respiratory distress, IL, Pseudoaneurysm Interval history: Platelets continue to drop despite Argatroban therapy. HgB down to 6.9, which is lower but not 2 units in the last 24 hours. Patient was not placed on bipap last night despite order for QHS therapy even after reports of persistent desaturation on nasal cannula and known systolic heart failure. Lasix given but no real improvement in oxygen requirement, however no weaning attempts by overnight RT. Objective Vital Signs - 12hr 03/20/21 03/20/21 03/20/21 00:52 01:01 01:31 Temperature 97.8 F Pulse Rate 102 H 102 H Pulse Rate [ Bilateral Throughout] Respiratory 25 H 21 Rate Respiratory Rate [Bilateral Throughout] Blood Pressure 126/60 135/58 O2 Sat by Pulse 87 93 Oximetry 03/20/21 03/20/21 03/20/21 02:01 02:31 03:01 Temperature Pulse Rate 105 H 104 H 117 H Pulse Rate [ Bilateral Throughout] Respiratory 19 23 23 Rate Respiratory Rate [Bilateral Throughout] Blood Pressure 155/55 161/63 166/92 O2 Sat by Pulse 94 94 96 Oximetry 03/20/21 03/20/21 03/20/21 03:30 03:49 04:00 Temperature 97.8 F Pulse Rate 100 H 96 H Pulse Rate [ Bilateral Throughout] Respiratory 18 17 Rate Respiratory Rate [Bilateral Throughout] Blood Pressure 131/63 138/54 O2 Sat by Pulse 95 77 L Oximetry 03/20/21 03/20/21 03/20/21 04:31 05:01 05:31 Temperature Pulse Rate 94 H 99 H 115 H Pulse Rate [ Bilateral Throughout] Respiratory 15 21 23 Rate Respiratory Rate [Bilateral Throughout] Blood Pressure 129/53 135/43 156/58 O2 Sat by Pulse 91 90 90 Oximetry 03/20/21 03/20/21 03/20/21 06:00 06:31 06:37 Temperature Pulse Rate 101 H 98 H 98 H Pulse Rate [ Bilateral Throughout] Respiratory 18 17 Rate Respiratory Rate [Bilateral Throughout] Blood Pressure 154/64 139/58 139/58 O2 Sat by Pulse 92 86 Oximetry 03/20/21 03/20/21 03/20/21 07:01 07:30 07:32 Temperature Pulse Rate 93 H 90 Pulse Rate [ 91 H Bilateral Throughout] Respiratory 16 15 Rate Respiratory 20 Rate [Bilateral Throughout] Blood Pressure 145/55 130/54 O2 Sat by Pulse 94 93 98 Oximetry 03/20/21 03/20/21 03/20/21 08:00 08:30 09:01 Temperature Pulse Rate 92 H 95 H 104 H Pulse Rate [ 92 H Bilateral Throughout] Respiratory 18 13 21 Rate Respiratory 20 Rate [Bilateral Throughout] Blood Pressure 130/60 124/59 167/74 O2 Sat by Pulse 91 100 100 Oximetry 03/20/21 03/20/21 03/20/21 09:30 10:01 10:30 Temperature Pulse Rate 95 H 90 90 Pulse Rate [ Bilateral Throughout] Respiratory 18 21 16 Rate Respiratory Rate [Bilateral Throughout] Blood Pressure 130/60 149/55 132/64 O2 Sat by Pulse 100 100 99 Oximetry Constitutional: lethargic, other (but arousable) Eyes: non-icteric ENT: other (orally intubated and sedated.) Neck: supple Effort: normal Ascultation: Bilateral: diminished breath sounds Cardiovascular: regular rate and rhythm Gastrointestinal: normoactive bowel sounds, soft Extremities: no edema, pink and warm Neurologic: unable to assess CBC and BMP: 03/20/21 04:47 03/20/21 04:47 ABG, PT/INR, D-dimer: ABG ABG pH 7.389 (7.320-7.450) 03/17/21 00:35 POC ABG pCO2 69.0 mmHg (32.0-48.0) H 03/17/21 00:35 ABG pCO2 43.0 mm Hg 03/08/21 15:12 POC ABG pO2 84.0 mmHg (83-108) 03/17/21 00:35 ABG pO2 381.9 mm Hg (80.0-90.0) H 03/08/21 15:12 POC ABG HCO3 40.7 03/17/21 00:35 ABG O2 Saturation 95.3 (0-100) 03/17/21 00:35 PT/INR, D-dimer PT 14.6 Sec. (12.2-14.9) 03/11/21 21:50 INR 1.09 (0.87-1.13) 03/11/21 21:50 D-Dimer 832.06 ng/mlDDU (0-234) H 03/08/21 15:49 Abnormal lab findings: Abnormal Labs 03/08/21 03/08/21 03/08/21 15:12 15:49 15:49 WBC RBC Hgb Hct MCV 95 H RDW 12.8 L Plt Count Lymph % (Auto) 5.1 L [place] % (Auto) 8.6 H Lymph # (Auto) 0.4 L [place] # (Auto) Seg Neutrophils % 86.1 H Seg Neuts % (Manual) Lymphocytes % (Manual) Seg Neutrophils # Seg Neutrophils # Man Lymphocytes # (Manual) APTT 37.1 H D-Dimer 832.06 H ABG pH 7.478 H POC ABG pCO2 POC ABG pO2 ABG pO2 381.9 H ABG HCO3 31.2 H ABG O2 Saturation 99.6 H ABG Base Excess 6.9 H ABG Hemoglobin 13.0 L ABG Oxyhemoglobin ABG Sodium ABG Potassium ABG Chloride ABG Glucose Carboxyhemoglobin Sodium Potassium Chloride Carbon Dioxide BUN Creatinine Glucose POC Glucose Lactic Acid Calcium Phosphorus Magnesium Ferritin Direct Bilirubin AST ALT Ammonia Lactate Dehydrogenase Total Creatine Kinase CK-MB (CK-2) CK-MB (CK-2) Rel Index Troponin T C-Reactive Protein Total Protein Albumin Prealbumin Triglycerides HDL Cholesterol Arterial Blood Glucose Arterial Blood Ionized Calcium Acetaminophen Crossmatch 03/08/21 03/08/21 03/08/21 15:49 15:49 15:49 WBC RBC Hgb Hct MCV RDW Plt Count Lymph % (Auto) [place] % (Auto) Lymph # (Auto) [place] # (Auto) Seg Neutrophils % Seg Neuts % (Manual) Lymphocytes % (Manual) Seg Neutrophils # Seg Neutrophils # Man Lymphocytes # (Manual) APTT D-Dimer ABG pH POC ABG pCO2 POC ABG pO2 ABG pO2 ABG HCO3 ABG O2 Saturation ABG Base Excess ABG Hemoglobin ABG Oxyhemoglobin ABG Sodium ABG Potassium ABG Chloride ABG Glucose Carboxyhemoglobin Sodium 134 L Potassium Chloride 89.7 L Carbon Dioxide 32 H BUN 47 H Creatinine Glucose 150 H POC Glucose Lactic Acid Calcium Phosphorus Magnesium Ferritin Direct Bilirubin AST ALT Ammonia 22.0 L Lactate Dehydrogenase Total Creatine Kinase 52 L CK-MB (CK-2) CK-MB (CK-2) Rel Index Troponin T C-Reactive Protein Total Protein Albumin 3.2 L Prealbumin Triglycerides HDL Cholesterol Arterial Blood Glucose Arterial Blood Ionized Calcium Acetaminophen Crossmatch 03/08/21 03/08/21 03/08/21 15:49 15:49 15:49 WBC RBC Hgb Hct MCV RDW Plt Count Lymph % (Auto) [place] % (Auto) Lymph # (Auto) [place] # (Auto) Seg Neutrophils % Seg Neuts % (Manual) Lymphocytes % (Manual) Seg Neutrophils # Seg Neutrophils # Man Lymphocytes # (Manual) APTT D-Dimer ABG pH POC ABG pCO2 POC ABG pO2 ABG pO2 ABG HCO3 ABG O2 Saturation ABG Base Excess ABG Hemoglobin ABG Oxyhemoglobin ABG Sodium ABG Potassium ABG Chloride ABG Glucose Carboxyhemoglobin Sodium Potassium Chloride Carbon Dioxide BUN Creatinine Glucose 150 H POC Glucose Lactic Acid 3.40 H* Calcium Phosphorus Magnesium Ferritin Direct Bilirubin AST ALT Ammonia Lactate Dehydrogenase 209 H Total Creatine Kinase CK-MB (CK-2) CK-MB (CK-2) Rel Index Troponin T C-Reactive Protein 24.00 H Total Protein Albumin Prealbumin Triglycerides HDL Cholesterol Arterial Blood Glucose Arterial Blood Ionized Calcium Acetaminophen 5.0 L Crossmatch 03/08/21 03/08/21 03/09/21 15:49 23:27 00:00 WBC RBC Hgb Hct MCV RDW Plt Count Lymph % (Auto) [place] % (Auto) Lymph # (Auto) [place] # (Auto) Seg Neutrophils % Seg Neuts % (Manual) Lymphocytes % (Manual) Seg Neutrophils # Seg Neutrophils # Man Lymphocytes # (Manual) APTT D-Dimer ABG pH POC ABG pCO2 POC ABG pO2 ABG pO2 ABG HCO3 ABG O2 Saturation ABG Base Excess ABG Hemoglobin ABG Oxyhemoglobin ABG Sodium ABG Potassium ABG Chloride ABG Glucose Carboxyhemoglobin Sodium Potassium Chloride Carbon Dioxide BUN Creatinine Glucose POC Glucose 185 H Lactic Acid Calcium Phosphorus Magnesium Ferritin 1373.0 H Direct Bilirubin AST ALT Ammonia Lactate Dehydrogenase Total Creatine Kinase CK-MB (CK-2) CK-MB (CK-2) Rel Index Troponin T C-Reactive Protein Total Protein Albumin Prealbumin 0.058 L Triglycerides HDL Cholesterol Arterial Blood Glucose Arterial Blood Ionized Calcium Acetaminophen Crossmatch 03/09/21 03/09/21 03/09/21 05:11 06:18 06:18 WBC RBC 3.50 L Hgb 10.8 L Hct 32.8 L D MCV RDW 13.1 L Plt Count 111 L Lymph % (Auto) 9.9 L [place] % (Auto) 9.2 H Lymph # (Auto) 0.5 L [place] # (Auto) Seg Neutrophils % 80.4 H Seg Neuts % (Manual) Lymphocytes % (Manual) Seg Neutrophils # Seg Neutrophils # Man Lymphocytes # (Manual) APTT D-Dimer ABG pH POC ABG pCO2 POC ABG pO2 ABG pO2 ABG HCO3 ABG O2 Saturation ABG Base Excess ABG Hemoglobin ABG Oxyhemoglobin ABG Sodium ABG Potassium ABG Chloride ABG Glucose Carboxyhemoglobin Sodium 135 L Potassium 5.3 H Chloride Carbon Dioxide BUN 46 H Creatinine Glucose 178 H POC Glucose 183 H Lactic Acid Calcium 8.2 L Phosphorus Magnesium Ferritin Direct Bilirubin AST ALT Ammonia Lactate Dehydrogenase Total Creatine Kinase CK-MB (CK-2) CK-MB (CK-2) Rel Index Troponin T C-Reactive Protein Total Protein 6.1 L Albumin 2.4 L Prealbumin Triglycerides HDL Cholesterol Arterial Blood Glucose Arterial Blood Ionized Calcium Acetaminophen Crossmatch 03/09/21 03/09/21 03/09/21 07:40 11:39 18:09 WBC RBC Hgb Hct MCV RDW Plt Count Lymph % (Auto) [place] % (Auto) Lymph # (Auto) [place] # (Auto) Seg Neutrophils % Seg Neuts % (Manual) Lymphocytes % (Manual) Seg Neutrophils # Seg Neutrophils # Man Lymphocytes # (Manual) APTT D-Dimer ABG pH 7.485 H POC ABG pCO2 POC ABG pO2 179.1 H ABG pO2 ABG HCO3 ABG O2 Saturation ABG Base Excess ABG Hemoglobin 10.8 L ABG Oxyhemoglobin 99.1 H ABG Sodium 133.2 L ABG Potassium ABG Chloride ABG Glucose 175 H Carboxyhemoglobin 0 L Sodium Potassium Chloride Carbon Dioxide BUN Creatinine Glucose POC Glucose 165 H 167 H Lactic Acid Calcium Phosphorus Magnesium Ferritin Direct Bilirubin AST ALT Ammonia Lactate Dehydrogenase Total Creatine Kinase CK-MB (CK-2) CK-MB (CK-2) Rel Index Troponin T C-Reactive Protein Total Protein Albumin Prealbumin Triglycerides HDL Cholesterol Arterial Blood Glucose 175 H Arterial Blood Ionized Calcium 4.3 L Acetaminophen Crossmatch 03/09/21 03/10/21 03/10/21 23:53 02:59 05:14 WBC 12.0 H RBC Hgb 11.7 L Hct MCV 95 H RDW Plt Count Lymph % (Auto) 2.6 L [place] % (Auto) 7.5 H Lymph # (Auto) 0.3 L [place] # (Auto) 0.9 H Seg Neutrophils % 89.8 H Seg Neuts % (Manual) Lymphocytes % (Manual) Seg Neutrophils # 10.8 H Seg Neutrophils # Man Lymphocytes # (Manual) APTT D-Dimer ABG pH POC ABG pCO2 POC ABG pO2 ABG pO2 ABG HCO3 ABG O2 Saturation ABG Base Excess ABG Hemoglobin 11.9 L ABG Oxyhemoglobin ABG Sodium ABG Potassium ABG Chloride 108.0 H ABG Glucose 232 H Carboxyhemoglobin 0.3 L Sodium Potassium Chloride Carbon Dioxide BUN Creatinine Glucose POC Glucose 210 H Lactic Acid Calcium Phosphorus Magnesium Ferritin Direct Bilirubin AST ALT Ammonia Lactate Dehydrogenase Total Creatine Kinase CK-MB (CK-2) CK-MB (CK-2) Rel Index Troponin T C-Reactive Protein Total Protein Albumin Prealbumin Triglycerides HDL Cholesterol Arterial Blood Glucose 232 H Arterial Blood Ionized Calcium 4.4 L Acetaminophen Crossmatch 03/10/21 03/10/21 03/10/21 05:14 05:14 05:14 WBC RBC Hgb Hct MCV RDW Plt Count Lymph % (Auto) [place] % (Auto) Lymph # (Auto) [place] # (Auto) Seg Neutrophils % Seg Neuts % (Manual) Lymphocytes % (Manual) Seg Neutrophils # Seg Neutrophils # Man Lymphocytes # (Manual) APTT D-Dimer ABG pH POC ABG pCO2 POC ABG pO2 ABG pO2 ABG HCO3 ABG O2 Saturation ABG Base Excess ABG Hemoglobin ABG Oxyhemoglobin ABG Sodium ABG Potassium ABG Chloride ABG Glucose Carboxyhemoglobin Sodium Potassium Chloride 107.2 H Carbon Dioxide BUN 48 H Creatinine Glucose 218 H POC Glucose Lactic Acid Calcium 7.9 L Phosphorus Magnesium Ferritin Direct Bilirubin AST 41 H ALT Ammonia Lactate Dehydrogenase Total Creatine Kinase CK-MB (CK-2) 17.8 H CK-MB (CK-2) Rel Index 18.1 H Troponin T 0.798 H* C-Reactive Protein Total Protein 5.7 L Albumin 2.7 L Prealbumin Triglycerides 173 H HDL Cholesterol 36 L Arterial Blood Glucose Arterial Blood Ionized Calcium Acetaminophen Crossmatch 03/10/21 03/10/21 03/10/21 05:35 11:43 18:17 WBC RBC Hgb Hct MCV RDW Plt Count Lymph % (Auto) [place] % (Auto) Lymph # (Auto) [place] # (Auto) Seg Neutrophils % Seg Neuts % (Manual) Lymphocytes % (Manual) Seg Neutrophils # Seg Neutrophils # Man Lymphocytes # (Manual) APTT D-Dimer ABG pH POC ABG pCO2 POC ABG pO2 ABG pO2 ABG HCO3 ABG O2 Saturation ABG Base Excess ABG Hemoglobin ABG Oxyhemoglobin ABG Sodium ABG Potassium ABG Chloride ABG Glucose Carboxyhemoglobin Sodium Potassium Chloride Carbon Dioxide BUN Creatinine Glucose POC Glucose 210 H 221 H 120 H Lactic Acid Calcium Phosphorus Magnesium Ferritin Direct Bilirubin AST ALT Ammonia Lactate Dehydrogenase Total Creatine Kinase CK-MB (CK-2) CK-MB (CK-2) Rel Index Troponin T C-Reactive Protein Total Protein Albumin Prealbumin Triglycerides HDL Cholesterol Arterial Blood Glucose Arterial Blood Ionized Calcium Acetaminophen Crossmatch 03/10/21 03/11/21 03/11/21 18:40 00:44 08:00 WBC RBC Hgb Hct MCV RDW Plt Count Lymph % (Auto) [place] % (Auto) Lymph # (Auto) [place] # (Auto) Seg Neutrophils % Seg Neuts % (Manual) Lymphocytes % (Manual) Seg Neutrophils # Seg Neutrophils # Man Lymphocytes # (Manual) APTT D-Dimer ABG pH POC ABG pCO2 POC ABG pO2 ABG pO2 ABG HCO3 ABG O2 Saturation ABG Base Excess ABG Hemoglobin ABG Oxyhemoglobin ABG Sodium ABG Potassium ABG Chloride ABG Glucose Carboxyhemoglobin Sodium Potassium Chloride Carbon Dioxide BUN Creatinine Glucose POC Glucose Lactic Acid Calcium Phosphorus Magnesium Ferritin Direct Bilirubin AST ALT Ammonia Lactate Dehydrogenase Total Creatine Kinase CK-MB (CK-2) CK-MB (CK-2) Rel Index Troponin T 0.477 H* D 0.430 H* 0.363 H* C-Reactive Protein Total Protein Albumin Prealbumin Triglycerides HDL Cholesterol Arterial Blood Glucose Arterial Blood Ionized Calcium Acetaminophen Crossmatch 03/11/21 03/11/21 03/11/21 08:00 08:00 11:26 WBC 14.7 H RBC 3.62 L Hgb 11.3 L Hct 34.4 L MCV 95 H RDW Plt Count Lymph % (Auto) [place] % (Auto) Lymph # (Auto) [place] # (Auto) Seg Neutrophils % Seg Neuts % (Manual) Lymphocytes % (Manual) Seg Neutrophils # Seg Neutrophils # Man Lymphocytes # (Manual) APTT D-Dimer ABG pH POC ABG pCO2 POC ABG pO2 ABG pO2 ABG HCO3 ABG O2 Saturation ABG Base Excess ABG Hemoglobin ABG Oxyhemoglobin ABG Sodium ABG Potassium ABG Chloride ABG Glucose Carboxyhemoglobin Sodium Potassium Chloride Carbon Dioxide BUN 34 H Creatinine Glucose 167 H POC Glucose 157 H Lactic Acid Calcium Phosphorus 2.40 L Magnesium 2.40 H Ferritin Direct Bilirubin AST ALT Ammonia Lactate Dehydrogenase Total Creatine Kinase CK-MB (CK-2) CK-MB (CK-2) Rel Index Troponin T C-Reactive Protein Total Protein 6.1 L Albumin 2.7 L Prealbumin Triglycerides HDL Cholesterol Arterial Blood Glucose Arterial Blood Ionized Calcium Acetaminophen Crossmatch 03/11/21 03/11/21 03/12/21 17:31 21:50 03:05 WBC RBC Hgb 10.7 L Hct 33.6 L MCV RDW Plt Count Lymph % (Auto) [place] % (Auto) Lymph # (Auto) [place] # (Auto) Seg Neutrophils % Seg Neuts % (Manual) Lymphocytes % (Manual) Seg Neutrophils # Seg Neutrophils # Man Lymphocytes # (Manual) APTT D-Dimer ABG pH POC ABG pCO2 POC ABG pO2 ABG pO2 ABG HCO3 ABG O2 Saturation ABG Base Excess ABG Hemoglobin ABG Oxyhemoglobin ABG Sodium ABG Potassium ABG Chloride ABG Glucose Carboxyhemoglobin Sodium Potassium Chloride Carbon Dioxide BUN Creatinine Glucose POC Glucose 154 H 139 H Lactic Acid Calcium Phosphorus Magnesium Ferritin Direct Bilirubin AST ALT Ammonia Lactate Dehydrogenase Total Creatine Kinase CK-MB (CK-2) CK-MB (CK-2) Rel Index Troponin T C-Reactive Protein Total Protein Albumin Prealbumin Triglycerides HDL Cholesterol Arterial Blood Glucose Arterial Blood Ionized Calcium Acetaminophen Crossmatch 03/12/21 03/12/21 03/12/21 04:40 04:40 06:03 WBC 11.6 H RBC 3.28 L Hgb 10.3 L Hct 31.3 L MCV 96 H RDW Plt Count Lymph % (Auto) [place] % (Auto) Lymph # (Auto) [place] # (Auto) Seg Neutrophils % Seg Neuts % (Manual) 92.0 H Lymphocytes % (Manual) 3.0 L Seg Neutrophils # Seg Neutrophils # Man 10.7 H Lymphocytes # (Manual) 0.3 L APTT D-Dimer ABG pH POC ABG pCO2 POC ABG pO2 ABG pO2 ABG HCO3 ABG O2 Saturation ABG Base Excess ABG Hemoglobin ABG Oxyhemoglobin ABG Sodium ABG Potassium ABG Chloride ABG Glucose Carboxyhemoglobin Sodium Potassium Chloride 108.7 H Carbon Dioxide BUN 28 H Creatinine Glucose 137 H POC Glucose 137 H Lactic Acid Calcium 8.2 L Phosphorus Magnesium Ferritin Direct Bilirubin AST ALT Ammonia Lactate Dehydrogenase Total Creatine Kinase CK-MB (CK-2) CK-MB (CK-2) Rel Index Troponin T 0.261 H* D C-Reactive Protein Total Protein Albumin Prealbumin Triglycerides HDL Cholesterol Arterial Blood Glucose Arterial Blood Ionized Calcium Acetaminophen Crossmatch 03/12/21 03/12/21 03/13/21 14:17 17:28 04:09 WBC RBC Hgb 9.1 L Hct 27.7 L MCV RDW Plt Count Lymph % (Auto) [place] % (Auto) Lymph # (Auto) [place] # (Auto) Seg Neutrophils % Seg Neuts % (Manual) Lymphocytes % (Manual) Seg Neutrophils # Seg Neutrophils # Man Lymphocytes # (Manual) APTT D-Dimer ABG pH POC ABG pCO2 POC ABG pO2 ABG pO2 ABG HCO3 ABG O2 Saturation ABG Base Excess ABG Hemoglobin ABG Oxyhemoglobin ABG Sodium ABG Potassium ABG Chloride ABG Glucose Carboxyhemoglobin Sodium Potassium Chloride Carbon Dioxide BUN Creatinine Glucose POC Glucose 165 H 111 H Lactic Acid Calcium Phosphorus Magnesium Ferritin Direct Bilirubin AST ALT Ammonia Lactate Dehydrogenase Total Creatine Kinase CK-MB (CK-2) CK-MB (CK-2) Rel Index Troponin T C-Reactive Protein Total Protein Albumin Prealbumin Triglycerides HDL Cholesterol Arterial Blood Glucose Arterial Blood Ionized Calcium Acetaminophen Crossmatch 03/13/21 03/13/21 03/13/21 05:04 11:28 14:25 WBC RBC Hgb 6.7 L Hct 19.7 L* D MCV RDW Plt Count Lymph % (Auto) [place] % (Auto) Lymph # (Auto) [place] # (Auto) Seg Neutrophils % Seg Neuts % (Manual) Lymphocytes % (Manual) Seg Neutrophils # Seg Neutrophils # Man Lymphocytes # (Manual) APTT D-Dimer ABG pH POC ABG pCO2 POC ABG pO2 ABG pO2 ABG HCO3 ABG O2 Saturation ABG Base Excess ABG Hemoglobin ABG Oxyhemoglobin ABG Sodium ABG Potassium ABG Chloride ABG Glucose Carboxyhemoglobin Sodium Potassium Chloride Carbon Dioxide BUN Creatinine Glucose POC Glucose 113 H 148 H Lactic Acid Calcium Phosphorus Magnesium Ferritin Direct Bilirubin AST ALT Ammonia Lactate Dehydrogenase Total Creatine Kinase CK-MB (CK-2) CK-MB (CK-2) Rel Index Troponin T C-Reactive Protein Total Protein Albumin Prealbumin Triglycerides HDL Cholesterol Arterial Blood Glucose Arterial Blood Ionized Calcium Acetaminophen Crossmatch 03/13/21 03/13/21 03/13/21 15:22 17:25 19:16 WBC RBC Hgb Hct MCV RDW Plt Count Lymph % (Auto) [place] % (Auto) Lymph # (Auto) [place] # (Auto) Seg Neutrophils % Seg Neuts % (Manual) Lymphocytes % (Manual) Seg Neutrophils # Seg Neutrophils # Man Lymphocytes # (Manual) APTT D-Dimer ABG pH 7.174 L POC ABG pCO2 POC ABG pO2 78.7 L ABG pO2 ABG HCO3 ABG O2 Saturation ABG Base Excess ABG Hemoglobin 5.5 L ABG Oxyhemoglobin 88.8 L ABG Sodium 135.1 L ABG Potassium 5.2 H ABG Chloride 109.0 H ABG Glucose 96 H Carboxyhemoglobin Sodium Potassium Chloride Carbon Dioxide BUN Creatinine Glucose POC Glucose 47 L Lactic Acid Calcium Phosphorus Magnesium Ferritin Direct Bilirubin AST ALT Ammonia Lactate Dehydrogenase Total Creatine Kinase CK-MB (CK-2) CK-MB (CK-2) Rel Index Troponin T C-Reactive Protein Total Protein Albumin Prealbumin Triglycerides HDL Cholesterol Arterial Blood Glucose 96 H Arterial Blood Ionized Calcium 4.4 L Acetaminophen Crossmatch See Detail 08/06/21 08/06/21 08/06/21 20:06 20:16 20:24 WBC RBC Hgb 8.1 L Hct 24.1 L MCV RDW Plt Count Lymph % (Auto) [place] % (Auto) Lymph # (Auto) [place] # (Auto) Seg Neutrophils % Seg Neuts % (Manual) Lymphocytes % (Manual) Seg Neutrophils # Seg Neutrophils # Man Lymphocytes # (Manual) APTT D-Dimer ABG pH 7.094 L POC ABG pCO2 64.0 H POC ABG pO2 68.2 L ABG pO2 ABG HCO3 ABG O2 Saturation ABG Base Excess ABG Hemoglobin 7.9 L ABG Oxyhemoglobin 84.6 L ABG Sodium ABG Potassium 4.9 H ABG Chloride ABG Glucose 220 H Carboxyhemoglobin Sodium Potassium Chloride Carbon Dioxide BUN Creatinine Glucose POC Glucose 188 H Lactic Acid Calcium Phosphorus Magnesium Ferritin Direct Bilirubin AST ALT Ammonia Lactate Dehydrogenase Total Creatine Kinase CK-MB (CK-2) CK-MB (CK-2) Rel Index Troponin T C-Reactive Protein Total Protein Albumin Prealbumin Triglycerides HDL Cholesterol Arterial Blood Glucose 220 H Arterial Blood Ionized Calcium 4.1 L Acetaminophen Crossmatch 03/13/21 03/14/21 03/14/21 23:17 04:00 04:00 WBC 17.9 H RBC 2.55 L Hgb 7.8 L Hct 23.1 L MCV RDW Plt Count 111 L Lymph % (Auto) [place] % (Auto) Lymph # (Auto) [place] # (Auto) Seg Neutrophils % Seg Neuts % (Manual) 99.0 H Lymphocytes % (Manual) Seg Neutrophils # Seg Neutrophils # Man 17.7 H Lymphocytes # (Manual) 0.0 L APTT D-Dimer ABG pH POC ABG pCO2 POC ABG pO2 ABG pO2 ABG HCO3 ABG O2 Saturation ABG Base Excess ABG Hemoglobin ABG Oxyhemoglobin ABG Sodium ABG Potassium ABG Chloride ABG Glucose Carboxyhemoglobin Sodium Potassium Chloride Carbon Dioxide 35 H BUN 48 H Creatinine 1.7 H D Glucose 258 H POC Glucose 244 H Lactic Acid Calcium 7.2 L Phosphorus Magnesium Ferritin Direct Bilirubin AST ALT Ammonia Lactate Dehydrogenase Total Creatine Kinase CK-MB (CK-2) CK-MB (CK-2) Rel Index Troponin T C-Reactive Protein Total Protein Albumin Prealbumin Triglycerides HDL Cholesterol Arterial Blood Glucose Arterial Blood Ionized Calcium Acetaminophen Crossmatch 03/14/21 03/14/21 03/14/21 05:15 10:24 14:54 WBC RBC Hgb 8.3 L Hct 24.1 L MCV RDW Plt Count Lymph % (Auto) [place] % (Auto) Lymph # (Auto) [place] # (Auto) Seg Neutrophils % Seg Neuts % (Manual) Lymphocytes % (Manual) Seg Neutrophils # Seg Neutrophils # Man Lymphocytes # (Manual) APTT D-Dimer ABG pH 7.294 L POC ABG pCO2 69.4 H POC ABG pO2 128.0 H ABG pO2 ABG HCO3 ABG O2 Saturation ABG Base Excess ABG Hemoglobin 10.2 L ABG Oxyhemoglobin ABG Sodium ABG Potassium ABG Chloride ABG Glucose 130 H Carboxyhemoglobin 0.3 L Sodium Potassium Chloride Carbon Dioxide BUN Creatinine Glucose POC Glucose 203 H Lactic Acid Calcium Phosphorus Magnesium Ferritin Direct Bilirubin AST ALT Ammonia Lactate Dehydrogenase Total Creatine Kinase CK-MB (CK-2) CK-MB (CK-2) Rel Index Troponin T C-Reactive Protein Total Protein Albumin Prealbumin Triglycerides HDL Cholesterol Arterial Blood Glucose 130 H Arterial Blood Ionized Calcium 4.1 L Acetaminophen Crossmatch 03/14/21 03/14/21 03/15/21 17:37 23:39 04:00 WBC RBC Hgb 8.0 L Hct 23.4 L MCV RDW Plt Count 119 L Lymph % (Auto) [place] % (Auto) Lymph # (Auto) [place] # (Auto) Seg Neutrophils % Seg Neuts % (Manual) Lymphocytes % (Manual) Seg Neutrophils # Seg Neutrophils # Man Lymphocytes # (Manual) APTT D-Dimer ABG pH POC ABG pCO2 POC ABG pO2 ABG pO2 ABG HCO3 ABG O2 Saturation ABG Base Excess ABG Hemoglobin ABG Oxyhemoglobin ABG Sodium ABG Potassium ABG Chloride ABG Glucose Carboxyhemoglobin Sodium Potassium Chloride Carbon Dioxide BUN Creatinine Glucose POC Glucose 110 H 112 H Lactic Acid Calcium Phosphorus Magnesium Ferritin Direct Bilirubin AST ALT Ammonia Lactate Dehydrogenase Total Creatine Kinase CK-MB (CK-2) CK-MB (CK-2) Rel Index Troponin T C-Reactive Protein Total Protein Albumin Prealbumin Triglycerides HDL Cholesterol Arterial Blood Glucose Arterial Blood Ionized Calcium Acetaminophen Crossmatch 03/15/21 03/15/21 03/15/21 04:00 05:54 10:32 WBC RBC Hgb Hct MCV RDW Plt Count Lymph % (Auto) [place] % (Auto) Lymph # (Auto) [place] # (Auto) Seg Neutrophils % Seg Neuts % (Manual) Lymphocytes % (Manual) Seg Neutrophils # Seg Neutrophils # Man Lymphocytes # (Manual) APTT D-Dimer ABG pH POC ABG pCO2 71.5 H POC ABG pO2 ABG pO2 ABG HCO3 ABG O2 Saturation ABG Base Excess ABG Hemoglobin 7.9 L ABG Oxyhemoglobin ABG Sodium ABG Potassium ABG Chloride ABG Glucose 160 H Carboxyhemoglobin Sodium Potassium Chloride Carbon Dioxide 39 H BUN 41 H Creatinine 1.6 H Glucose 153 H POC Glucose 131 H Lactic Acid Calcium 7.0 L Phosphorus Magnesium Ferritin Direct Bilirubin AST ALT Ammonia Lactate Dehydrogenase Total Creatine Kinase CK-MB (CK-2) CK-MB (CK-2) Rel Index Troponin T C-Reactive Protein Total Protein Albumin Prealbumin Triglycerides HDL Cholesterol Arterial Blood Glucose 160 H Arterial Blood Ionized Calcium 3.9 L Acetaminophen Crossmatch 03/15/21 03/15/21 03/15/21 11:19 11:37 11:40 WBC RBC Hgb Hct MCV RDW Plt Count Lymph % (Auto) [place] % (Auto) Lymph # (Auto) [place] # (Auto) Seg Neutrophils % Seg Neuts % (Manual) Lymphocytes % (Manual) Seg Neutrophils # Seg Neutrophils # Man Lymphocytes # (Manual) APTT D-Dimer ABG pH POC ABG pCO2 POC ABG pO2 ABG pO2 ABG HCO3 ABG O2 Saturation ABG Base Excess ABG Hemoglobin ABG Oxyhemoglobin ABG Sodium ABG Potassium ABG Chloride ABG Glucose Carboxyhemoglobin Sodium Potassium Chloride Carbon Dioxide BUN Creatinine Glucose 317 H POC Glucose 28 L 25 L Lactic Acid Calcium Phosphorus Magnesium Ferritin Direct Bilirubin AST ALT Ammonia Lactate Dehydrogenase Total Creatine Kinase CK-MB (CK-2) CK-MB (CK-2) Rel Index Troponin T C-Reactive Protein Total Protein Albumin Prealbumin Triglycerides HDL Cholesterol Arterial Blood Glucose Arterial Blood Ionized Calcium Acetaminophen Crossmatch 03/15/21 03/15/21 03/15/21 12:33 20:05 20:15 WBC RBC Hgb 8.0 L Hct 23.5 L MCV RDW Plt Count Lymph % (Auto) [place] % (Auto) Lymph # (Auto) [place] # (Auto) Seg Neutrophils % Seg Neuts % (Manual) Lymphocytes % (Manual) Seg Neutrophils # Seg Neutrophils # Man Lymphocytes # (Manual) APTT D-Dimer ABG pH POC ABG pCO2 63.7 H POC ABG pO2 43.1 L ABG pO2 ABG HCO3 ABG O2 Saturation ABG Base Excess ABG Hemoglobin 8.1 L ABG Oxyhemoglobin 76.4 L ABG Sodium 134.8 L ABG Potassium ABG Chloride ABG Glucose 171 H Carboxyhemoglobin Sodium Potassium Chloride Carbon Dioxide BUN Creatinine Glucose POC Glucose 145 H Lactic Acid Calcium Phosphorus Magnesium Ferritin Direct Bilirubin AST ALT Ammonia Lactate Dehydrogenase Total Creatine Kinase CK-MB (CK-2) CK-MB (CK-2) Rel Index Troponin T C-Reactive Protein Total Protein Albumin Prealbumin Triglycerides HDL Cholesterol Arterial Blood Glucose 171 H Arterial Blood Ionized Calcium 3.9 L Acetaminophen Crossmatch 03/16/21 03/16/21 03/16/21 04:05 09:53 09:53 WBC 17.9 H RBC 2.51 L Hgb 7.8 L Hct 23.1 L MCV RDW Plt Count 96 L 114 L Lymph % (Auto) [place] % (Auto) Lymph # (Auto) [place] # (Auto) Seg Neutrophils % Seg Neuts % (Manual) Lymphocytes % (Manual) Seg Neutrophils # Seg Neutrophils # Man Lymphocytes # (Manual) APTT D-Dimer ABG pH POC ABG pCO2 POC ABG pO2 ABG pO2 ABG HCO3 ABG O2 Saturation ABG Base Excess ABG Hemoglobin ABG Oxyhemoglobin ABG Sodium ABG Potassium ABG Chloride ABG Glucose Carboxyhemoglobin Sodium Potassium Chloride Carbon Dioxide 42 H* BUN 30 H Creatinine Glucose 220 H POC Glucose Lactic Acid Calcium 7.4 L Phosphorus Magnesium Ferritin Direct Bilirubin AST ALT Ammonia Lactate Dehydrogenase Total Creatine Kinase CK-MB (CK-2) CK-MB (CK-2) Rel Index Troponin T C-Reactive Protein Total Protein Albumin Prealbumin Triglycerides HDL Cholesterol Arterial Blood Glucose Arterial Blood Ionized Calcium Acetaminophen Crossmatch 03/16/21 03/16/21 03/16/21 11:36 11:39 21:59 WBC RBC Hgb Hct MCV RDW Plt Count Lymph % (Auto) [place] % (Auto) Lymph # (Auto) [place] # (Auto) Seg Neutrophils % Seg Neuts % (Manual) Lymphocytes % (Manual) Seg Neutrophils # Seg Neutrophils # Man Lymphocytes # (Manual) APTT D-Dimer ABG pH POC ABG pCO2 88.2 H POC ABG pO2 50.2 L ABG pO2 ABG HCO3 ABG O2 Saturation ABG Base Excess ABG Hemoglobin 8.1 L ABG Oxyhemoglobin 80.2 L ABG Sodium 135.4 L ABG Potassium ABG Chloride 97.0 L ABG Glucose 98 H Carboxyhemoglobin Sodium Potassium Chloride Carbon Dioxide BUN Creatinine Glucose POC Glucose 58 L 210 H Lactic Acid Calcium Phosphorus Magnesium Ferritin Direct Bilirubin AST ALT Ammonia Lactate Dehydrogenase Total Creatine Kinase CK-MB (CK-2) CK-MB (CK-2) Rel Index Troponin T C-Reactive Protein Total Protein Albumin Prealbumin Triglycerides HDL Cholesterol Arterial Blood Glucose 98 H Arterial Blood Ionized Calcium 4.0 L Acetaminophen Crossmatch 03/17/21 03/17/21 03/17/21 00:13 00:35 00:55 WBC RBC Hgb Hct MCV RDW Plt Count Lymph % (Auto) [place] % (Auto) Lymph # (Auto) [place] # (Auto) Seg Neutrophils % Seg Neuts % (Manual) Lymphocytes % (Manual) Seg Neutrophils # Seg Neutrophils # Man Lymphocytes # (Manual) APTT D-Dimer ABG pH POC ABG pCO2 69.0 H POC ABG pO2 ABG pO2 ABG HCO3 ABG O2 Saturation ABG Base Excess ABG Hemoglobin 7.2 L ABG Oxyhemoglobin ABG Sodium 135.0 L ABG Potassium ABG Chloride ABG Glucose 110 H Carboxyhemoglobin Sodium Potassium Chloride Carbon Dioxide BUN Creatinine Glucose POC Glucose 119 H Lactic Acid Calcium Phosphorus Magnesium Ferritin Direct Bilirubin 0.3 H AST 229 H ALT 426 H Ammonia Lactate Dehydrogenase Total Creatine Kinase CK-MB (CK-2) CK-MB (CK-2) Rel Index Troponin T C-Reactive Protein Total Protein 4.6 L Albumin 2.5 L Prealbumin Triglycerides HDL Cholesterol Arterial Blood Glucose 110 H Arterial Blood Ionized Calcium 4.0 L Acetaminophen Crossmatch 03/17/21 03/17/21 03/17/21 00:55 06:30 06:30 WBC 25.9 H RBC 2.16 L Hgb 6.7 L Hct 20.0 L MCV RDW Plt Count 124 L Lymph % (Auto) [place] % (Auto) Lymph # (Auto) [place] # (Auto) Seg Neutrophils % Seg Neuts % (Manual) 98.0 H Lymphocytes % (Manual) 2.0 L Seg Neutrophils # Seg Neutrophils # Man 25.4 H Lymphocytes # (Manual) 0.5 L APTT 44.5 H D-Dimer ABG pH POC ABG pCO2 POC ABG pO2 ABG pO2 ABG HCO3 ABG O2 Saturation ABG Base Excess ABG Hemoglobin ABG Oxyhemoglobin ABG Sodium ABG Potassium ABG Chloride ABG Glucose Carboxyhemoglobin Sodium Potassium Chloride Carbon Dioxide 42 H* BUN 30 H Creatinine Glucose 171 H POC Glucose Lactic Acid Calcium 7.5 L Phosphorus Magnesium Ferritin Direct Bilirubin AST ALT Ammonia Lactate Dehydrogenase Total Creatine Kinase CK-MB (CK-2) CK-MB (CK-2) Rel Index Troponin T C-Reactive Protein Total Protein Albumin Prealbumin Triglycerides HDL Cholesterol Arterial Blood Glucose Arterial Blood Ionized Calcium Acetaminophen Crossmatch 03/17/21 03/17/21 03/17/21 09:20 10:13 11:57 WBC RBC Hgb Hct MCV RDW Plt Count Lymph % (Auto) [place] % (Auto) Lymph # (Auto) [place] # (Auto) Seg Neutrophils % Seg Neuts % (Manual) Lymphocytes % (Manual) Seg Neutrophils # Seg Neutrophils # Man Lymphocytes # (Manual) APTT 63.2 H* D-Dimer ABG pH POC ABG pCO2 POC ABG pO2 ABG pO2 ABG HCO3 ABG O2 Saturation ABG Base Excess ABG Hemoglobin ABG Oxyhemoglobin ABG Sodium ABG Potassium ABG Chloride ABG Glucose Carboxyhemoglobin Sodium Potassium Chloride Carbon Dioxide BUN Creatinine Glucose POC Glucose 48 L Lactic Acid Calcium Phosphorus Magnesium Ferritin Direct Bilirubin AST ALT Ammonia Lactate Dehydrogenase Total Creatine Kinase CK-MB (CK-2) CK-MB (CK-2) Rel Index Troponin T C-Reactive Protein Total Protein Albumin Prealbumin Triglycerides HDL Cholesterol Arterial Blood Glucose Arterial Blood Ionized Calcium Acetaminophen Crossmatch See Detail 03/17/21 03/17/21 03/17/21 12:01 17:09 18:23 WBC RBC Hgb Hct MCV RDW Plt Count Lymph % (Auto) [place] % (Auto) Lymph # (Auto) [place] # (Auto) Seg Neutrophils % Seg Neuts % (Manual) Lymphocytes % (Manual) Seg Neutrophils # Seg Neutrophils # Man Lymphocytes # (Manual) APTT D-Dimer ABG pH POC ABG pCO2 POC ABG pO2 ABG pO2 ABG HCO3 ABG O2 Saturation ABG Base Excess ABG Hemoglobin ABG Oxyhemoglobin ABG Sodium ABG Potassium ABG Chloride ABG Glucose Carboxyhemoglobin Sodium Potassium Chloride Carbon Dioxide BUN Creatinine Glucose POC Glucose 159 H 68 L 60 L Lactic Acid Calcium Phosphorus Magnesium Ferritin Direct Bilirubin AST ALT Ammonia Lactate Dehydrogenase Total Creatine Kinase CK-MB (CK-2) CK-MB (CK-2) Rel Index Troponin T C-Reactive Protein Total Protein Albumin Prealbumin Triglycerides HDL Cholesterol Arterial Blood Glucose Arterial Blood Ionized Calcium Acetaminophen Crossmatch 03/17/21 03/18/21 03/18/21 18:26 05:00 05:00 WBC 35.7 H RBC 2.59 L Hgb 7.9 L Hct 23.3 L MCV RDW 16.6 H Plt Count 79 L Lymph % (Auto) [place] % (Auto) Lymph # (Auto) [place] # (Auto) Seg Neutrophils % Seg Neuts % (Manual) 93.0 H Lymphocytes % (Manual) Seg Neutrophils # Seg Neutrophils # Man 33.2 H Lymphocytes # (Manual) 0.0 L APTT D-Dimer ABG pH POC ABG pCO2 POC ABG pO2 ABG pO2 ABG HCO3 ABG O2 Saturation ABG Base Excess ABG Hemoglobin ABG Oxyhemoglobin ABG Sodium ABG Potassium ABG Chloride ABG Glucose Carboxyhemoglobin Sodium Potassium Chloride 97.0 L Carbon Dioxide 44 H* BUN 27 H Creatinine Glucose 119 H POC Glucose 60 L Lactic Acid Calcium 7.3 L Phosphorus 1.90 L Magnesium 1.60 L Ferritin Direct Bilirubin 0.3 H AST 228 H ALT 406 H Ammonia Lactate Dehydrogenase Total Creatine Kinase CK-MB (CK-2) CK-MB (CK-2) Rel Index Troponin T C-Reactive Protein Total Protein 4.8 L Albumin 2.4 L Prealbumin Triglycerides HDL Cholesterol Arterial Blood Glucose Arterial Blood Ionized Calcium Acetaminophen Crossmatch 03/18/21 03/18/21 03/18/21 10:25 10:25 12:04 WBC RBC Hgb 7.8 L Hct 23.3 L MCV RDW Plt Count Lymph % (Auto) [place] % (Auto) Lymph # (Auto) [place] # (Auto) Seg Neutrophils % Seg Neuts % (Manual) Lymphocytes % (Manual) Seg Neutrophils # Seg Neutrophils # Man Lymphocytes # (Manual) APTT 49.2 H D-Dimer ABG pH POC ABG pCO2 POC ABG pO2 ABG pO2 ABG HCO3 ABG O2 Saturation ABG Base Excess ABG Hemoglobin ABG Oxyhemoglobin ABG Sodium ABG Potassium ABG Chloride ABG Glucose Carboxyhemoglobin Sodium Potassium Chloride Carbon Dioxide BUN Creatinine Glucose POC Glucose 143 H Lactic Acid Calcium Phosphorus Magnesium Ferritin Direct Bilirubin AST ALT Ammonia Lactate Dehydrogenase Total Creatine Kinase CK-MB (CK-2) CK-MB (CK-2) Rel Index Troponin T C-Reactive Protein Total Protein Albumin Prealbumin Triglycerides HDL Cholesterol Arterial Blood Glucose Arterial Blood Ionized Calcium Acetaminophen Crossmatch 03/18/21 03/18/21 03/18/21 17:28 21:15 21:41 WBC RBC Hgb Hct MCV RDW Plt Count Lymph % (Auto) [place] % (Auto) Lymph # (Auto) [place] # (Auto) Seg Neutrophils % Seg Neuts % (Manual) Lymphocytes % (Manual) Seg Neutrophils # Seg Neutrophils # Man Lymphocytes # (Manual) APTT D-Dimer ABG pH POC ABG pCO2 POC ABG pO2 ABG pO2 ABG HCO3 ABG O2 Saturation ABG Base Excess ABG Hemoglobin ABG Oxyhemoglobin ABG Sodium ABG Potassium ABG Chloride ABG Glucose Carboxyhemoglobin Sodium Potassium Chloride Carbon Dioxide BUN Creatinine Glucose POC Glucose 172 H 37 L 110 H Lactic Acid Calcium Phosphorus Magnesium Ferritin Direct Bilirubin AST ALT Ammonia Lactate Dehydrogenase Total Creatine Kinase CK-MB (CK-2) CK-MB (CK-2) Rel Index Troponin T C-Reactive Protein Total Protein Albumin Prealbumin Triglycerides HDL Cholesterol Arterial Blood Glucose Arterial Blood Ionized Calcium Acetaminophen Crossmatch 03/19/21 03/19/21 03/19/21 00:17 00:17 04:22 WBC RBC Hgb 8.0 L Hct 24.3 L MCV RDW Plt Count Lymph % (Auto) [place] % (Auto) Lymph # (Auto) [place] # (Auto) Seg Neutrophils % Seg Neuts % (Manual) Lymphocytes % (Manual) Seg Neutrophils # Seg Neutrophils # Man Lymphocytes # (Manual) APTT 67.9 H* D-Dimer ABG pH POC ABG pCO2 POC ABG pO2 ABG pO2 ABG HCO3 ABG O2 Saturation ABG Base Excess ABG Hemoglobin ABG Oxyhemoglobin ABG Sodium ABG Potassium ABG Chloride ABG Glucose Carboxyhemoglobin Sodium Potassium Chloride Carbon Dioxide BUN Creatinine Glucose POC Glucose 107 H Lactic Acid Calcium Phosphorus Magnesium Ferritin Direct Bilirubin AST ALT Ammonia Lactate Dehydrogenase Total Creatine Kinase CK-MB (CK-2) CK-MB (CK-2) Rel Index Troponin T C-Reactive Protein Total Protein Albumin Prealbumin Triglycerides HDL Cholesterol Arterial Blood Glucose Arterial Blood Ionized Calcium Acetaminophen Crossmatch 03/19/21 03/19/21 03/19/21 08:39 09:53 09:53 WBC 32.3 H RBC 2.59 L Hgb 7.7 L Hct 23.4 L MCV RDW 16.8 H Plt Count 71 L Lymph % (Auto) [place] % (Auto) Lymph # (Auto) [place] # (Auto) Seg Neutrophils % Seg Neuts % (Manual) Lymphocytes % (Manual) Seg Neutrophils # Seg Neutrophils # Man Lymphocytes # (Manual) APTT 71.1 H* D-Dimer ABG pH POC ABG pCO2 POC ABG pO2 ABG pO2 ABG HCO3 ABG O2 Saturation ABG Base Excess ABG Hemoglobin ABG Oxyhemoglobin ABG Sodium ABG Potassium ABG Chloride ABG Glucose Carboxyhemoglobin Sodium Potassium Chloride Carbon Dioxide BUN Creatinine Glucose POC Glucose 120 H Lactic Acid Calcium Phosphorus Magnesium Ferritin Direct Bilirubin AST ALT Ammonia Lactate Dehydrogenase Total Creatine Kinase CK-MB (CK-2) CK-MB (CK-2) Rel Index Troponin T C-Reactive Protein Total Protein Albumin Prealbumin Triglycerides HDL Cholesterol Arterial Blood Glucose Arterial Blood Ionized Calcium Acetaminophen Crossmatch 03/19/21 03/19/21 03/19/21 09:53 11:45 15:38 WBC RBC Hgb Hct MCV RDW Plt Count Lymph % (Auto) [place] % (Auto) Lymph # (Auto) [place] # (Auto) Seg Neutrophils % Seg Neuts % (Manual) Lymphocytes % (Manual) Seg Neutrophils # Seg Neutrophils # Man Lymphocytes # (Manual) APTT D-Dimer ABG pH POC ABG pCO2 POC ABG pO2 ABG pO2 ABG HCO3 ABG O2 Saturation ABG Base Excess ABG Hemoglobin ABG Oxyhemoglobin ABG Sodium ABG Potassium ABG Chloride ABG Glucose Carboxyhemoglobin Sodium Potassium 3.3 L Chloride 93.9 L Carbon Dioxide 44 H* BUN 21 H Creatinine Glucose 220 H POC Glucose 207 H 184 H Lactic Acid Calcium 7.7 L Phosphorus Magnesium Ferritin Direct Bilirubin AST ALT Ammonia Lactate Dehydrogenase Total Creatine Kinase CK-MB (CK-2) CK-MB (CK-2) Rel Index Troponin T C-Reactive Protein Total Protein Albumin Prealbumin Triglycerides HDL Cholesterol Arterial Blood Glucose Arterial Blood Ionized Calcium Acetaminophen Crossmatch 03/19/21 03/19/21 03/19/21 15:50 20:58 21:00 WBC RBC Hgb 7.4 L Hct 22.3 L MCV RDW Plt Count 60 L Lymph % (Auto) [place] % (Auto) Lymph # (Auto) [place] # (Auto) Seg Neutrophils % Seg Neuts % (Manual) Lymphocytes % (Manual) Seg Neutrophils # Seg Neutrophils # Man Lymphocytes # (Manual) APTT 80.5 H* D-Dimer ABG pH POC ABG pCO2 POC ABG pO2 ABG pO2 ABG HCO3 ABG O2 Saturation ABG Base Excess ABG Hemoglobin ABG Oxyhemoglobin ABG Sodium ABG Potassium ABG Chloride ABG Glucose Carboxyhemoglobin Sodium Potassium Chloride Carbon Dioxide BUN Creatinine Glucose POC Glucose 191 H Lactic Acid Calcium Phosphorus Magnesium Ferritin Direct Bilirubin AST ALT Ammonia Lactate Dehydrogenase Total Creatine Kinase CK-MB (CK-2) CK-MB (CK-2) Rel Index Troponin T C-Reactive Protein Total Protein Albumin Prealbumin Triglycerides HDL Cholesterol Arterial Blood Glucose Arterial Blood Ionized Calcium Acetaminophen Crossmatch 03/20/21 03/20/21 03/20/21 00:25 04:47 04:47 WBC 29.6 H RBC 2.26 L Hgb 6.9 L Hct 20.3 L MCV RDW 15.6 H Plt Count 51 L Lymph % (Auto) [place] % (Auto) Lymph # (Auto) [place] # (Auto) Seg Neutrophils % Seg Neuts % (Manual) Lymphocytes % (Manual) Seg Neutrophils # Seg Neutrophils # Man Lymphocytes # (Manual) APTT D-Dimer ABG pH POC ABG pCO2 POC ABG pO2 ABG pO2 ABG HCO3 ABG O2 Saturation ABG Base Excess ABG Hemoglobin ABG Oxyhemoglobin ABG Sodium ABG Potassium ABG Chloride ABG Glucose Carboxyhemoglobin Sodium Potassium 3.3 L Chloride 92.4 L Carbon Dioxide 47 H* BUN 23 H Creatinine Glucose 154 H POC Glucose 139 H Lactic Acid Calcium 7.6 L Phosphorus Magnesium Ferritin Direct Bilirubin AST ALT Ammonia Lactate Dehydrogenase Total Creatine Kinase CK-MB (CK-2) CK-MB (CK-2) Rel Index Troponin T C-Reactive Protein Total Protein Albumin Prealbumin Triglycerides HDL Cholesterol Arterial Blood Glucose Arterial Blood Ionized Calcium Acetaminophen Crossmatch 03/20/21 03/20/21 03/20/21 04:47 05:47 11:59 WBC RBC Hgb Hct MCV RDW Plt Count Lymph % (Auto) [place] % (Auto) Lymph # (Auto) [place] # (Auto) Seg Neutrophils % Seg Neuts % (Manual) Lymphocytes % (Manual) Seg Neutrophils # Seg Neutrophils # Man Lymphocytes # (Manual) APTT 105.0 H* D-Dimer ABG pH POC ABG pCO2 POC ABG pO2 ABG pO2 ABG HCO3 ABG O2 Saturation ABG Base Excess ABG Hemoglobin ABG Oxyhemoglobin ABG Sodium ABG Potassium ABG Chloride ABG Glucose Carboxyhemoglobin Sodium Potassium Chloride Carbon Dioxide BUN Creatinine Glucose POC Glucose 166 H 203 H Lactic Acid Calcium Phosphorus Magnesium Ferritin Direct Bilirubin AST ALT Ammonia Lactate Dehydrogenase Total Creatine Kinase CK-MB (CK-2) CK-MB (CK-2) Rel Index Troponin T C-Reactive Protein Total Protein Albumin Prealbumin Triglycerides HDL Cholesterol Arterial Blood Glucose Arterial Blood Ionized Calcium Acetaminophen Crossmatch
--- NOTE | 2021-03-20 14:05 | Progress Note ---
Assessment and Plan Patient with ischemic changes to right 1-3 toes. Remains on Argatroban gtt and dual antiplatelet therapy and hemoglobin is trending down without a known source. He is on a facemask however given his history of COPD wonder if he normally has low O2 sats and could tolerate nasal cannula. He is otherwise stable and being off of the mask would allow for earlier intervention of his right lower extremity in the cathlab. Subjective Date of service: 03/20/21 Principal diagnosis: Respiratory distress, PR Interval history: Remains on facemask. Hemoglobin continues to trend down without a known source. No significant events overnight. Objective - Constitutional Vitals: Vital Signs - 12hr 03/20/21 03/20/21 03/20/21 02:31 03:01 03:30 Temperature Pulse Rate 104 H 117 H 100 H Pulse Rate [ Bilateral Throughout] Respiratory 23 23 18 Rate Respiratory Rate [Bilateral Throughout] Blood Pressure 161/63 166/92 131/63 O2 Sat by Pulse 94 96 95 Oximetry 03/20/21 03/20/21 03/20/21 03:49 04:00 04:31 Temperature 97.8 F Pulse Rate 96 H 94 H Pulse Rate [ Bilateral Throughout] Respiratory 17 15 Rate Respiratory Rate [Bilateral Throughout] Blood Pressure 138/54 129/53 O2 Sat by Pulse 77 L 91 Oximetry 03/20/21 03/20/21 03/20/21 05:01 05:31 06:00 Temperature Pulse Rate 99 H 115 H 101 H Pulse Rate [ Bilateral Throughout] Respiratory 21 23 18 Rate Respiratory Rate [Bilateral Throughout] Blood Pressure 135/43 156/58 154/64 O2 Sat by Pulse 90 90 92 Oximetry 03/20/21 03/20/21 03/20/21 06:31 06:37 07:01 Temperature Pulse Rate 98 H 98 H 93 H Pulse Rate [ Bilateral Throughout] Respiratory 17 16 Rate Respiratory Rate [Bilateral Throughout] Blood Pressure 139/58 139/58 145/55 O2 Sat by Pulse 86 94 Oximetry 03/20/21 03/20/21 03/20/21 07:30 07:32 08:00 Temperature Pulse Rate 90 92 H Pulse Rate [ 91 H 92 H Bilateral Throughout] Respiratory 15 18 Rate Respiratory 20 20 Rate [Bilateral Throughout] Blood Pressure 130/54 130/60 O2 Sat by Pulse 93 98 91 Oximetry 03/20/21 03/20/21 03/20/21 08:30 09:01 09:30 Temperature Pulse Rate 95 H 104 H 95 H Pulse Rate [ Bilateral Throughout] Respiratory 13 21 18 Rate Respiratory Rate [Bilateral Throughout] Blood Pressure 124/59 167/74 130/60 O2 Sat by Pulse 100 100 100 Oximetry 03/20/21 03/20/21 10:01 10:30 Temperature Pulse Rate 90 90 Pulse Rate [ Bilateral Throughout] Respiratory 21 16 Rate Respiratory Rate [Bilateral Throughout] Blood Pressure 149/55 132/64 O2 Sat by Pulse 100 99 Oximetry Extremities: abnormal (right foot warm with cyanotic changes to 1-3 toes. Toes 4-5 improved.) - Labs CBC & Chem 7: 03/20/21 04:47 03/20/21 04:47 Labs: Abnormal lab results 03/17/21 03/19/21 03/19/21 Range/Units 09:20 15:38 15:50 WBC (4.5-11.0) K/mm3 RBC (3.65-5.03) M/mm3 Hgb 7.4 L (11.8-15.2) gm/dl Hct 22.3 L (35.5-45.6) % RDW (13.2-15.2) % Plt Count 60 L (140-440) K/mm3 APTT (24.2-36.6) Sec. Potassium (3.6-5.0) mmol/L Chloride (98-107) mmol/L Carbon Dioxide (22-30) mmol/L BUN (9-20) mg/dL Glucose (75-100) mg/dL POC Glucose 184 H (70-105) mg/dL Calcium (8.4-10.2) mg/dL Crossmatch See Detail 03/19/21 03/19/21 03/20/21 Range/Units 20:58 21:00 00:25 WBC (4.5-11.0) K/mm3 RBC (3.65-5.03) M/mm3 Hgb (11.8-15.2) gm/dl Hct (35.5-45.6) % RDW (13.2-15.2) % Plt Count (140-440) K/mm3 APTT 80.5 H* (24.2-36.6) Sec. Potassium (3.6-5.0) mmol/L Chloride (98-107) mmol/L Carbon Dioxide (22-30) mmol/L BUN (9-20) mg/dL Glucose (75-100) mg/dL POC Glucose 191 H 139 H (70-105) mg/dL Calcium (8.4-10.2) mg/dL Crossmatch 03/20/21 03/20/21 03/20/21 Range/Units 04:47 04:47 04:47 WBC 29.6 H (4.5-11.0) K/mm3 RBC 2.26 L (3.65-5.03) M/mm3 Hgb 6.9 L (11.8-15.2) gm/dl Hct 20.3 L (35.5-45.6) % RDW 15.6 H (13.2-15.2) % Plt Count 51 L (140-440) K/mm3 APTT 105.0 H* (24.2-36.6) Sec. Potassium 3.3 L (3.6-5.0) mmol/L Chloride 92.4 L (98-107) mmol/L Carbon Dioxide 47 H* (22-30) mmol/L BUN 23 H (9-20) mg/dL Glucose 154 H (75-100) mg/dL POC Glucose (70-105) mg/dL Calcium 7.6 L (8.4-10.2) mg/dL Crossmatch 03/20/21 03/20/21 Range/Units 05:47 11:59 WBC (4.5-11.0) K/mm3 RBC (3.65-5.03) M/mm3 Hgb (11.8-15.2) gm/dl Hct (35.5-45.6) % RDW (13.2-15.2) % Plt Count (140-440) K/mm3 APTT (24.2-36.6) Sec. Potassium (3.6-5.0) mmol/L Chloride (98-107) mmol/L Carbon Dioxide (22-30) mmol/L BUN (9-20) mg/dL Glucose (75-100) mg/dL POC Glucose 166 H 203 H (70-105) mg/dL Calcium (8.4-10.2) mg/dL Crossmatch Medications & Allergies - Medications Allergies/Adverse Reactions: Allergies Unable to Assess Allergy (Verified 03/08/21 14:37) AMS Active Medications: Generic Name Dose Route Start Last Admin Trade Name Freq PRN Reason Stop Dose Admin Acetaminophen 650 mg 03/08/21 21:36 Acetaminophen 325 Mg Tab PO Q4H PRN Pain MILD(1-3)/Fever >100.5/MYERS Hydrocodone Bitart/Acetaminophen 1 each 03/11/21 13:59 Hydrocodone/Acetaminophen 5-325 Mg Tab PO Q6H PRN Pain, Moderate (4-6) Albuterol 2.5 mg 03/15/21 19:28 03/19/21 05:28 Albuterol 2.5 Mg/3 Ml Nebu IH 2.5 mg Q4HRT PRN Administration Shortness Of Breath Lipase/Protease/Amylase 1 each 03/08/21 21:42 Lipase 10,500/Protease 25,000/Amylase 43,750 (Units) Dr Johnson FEEDTUBE PRN PRN For Clogged Feeding Tube Arformoterol Tartrate 15 mcg 03/10/21 20:00 03/20/21 07:32 Arformoterol 15 Mcg/2 Ml Nebu IH 15 mcg Q12HRT PRINCESS Administration Aspirin 81 mg 03/10/21 15:00 03/20/21 09:19 Aspirin 81 Mg Tab Chew PO 81 mg QDAY PRINCESS Administration Atorvastatin Calcium 40 mg 03/11/21 22:00 03/19/21 22:39 Atorvastatin 40 Mg Tab PO 40 mg QHS PRINCESS Administration Budesonide 0.5 mg 03/09/21 20:00 03/20/21 07:32 Budesonide 0.5 Mg/2 Ml Nebu IH 0.5 mg Q12HRT PRINCESS Administration Clopidogrel Bisulfate 75 mg 03/12/21 10:00 03/20/21 09:19 Clopidogrel 75 Mg Tab PO 75 mg QDAY PRINCESS Administration Dextrose 50 ml 03/17/21 20:20 Dextrose 50% In Water (25gm) 50 Ml Syringe IV Q30MIN PRN Hypoglycemia Protocol Haloperidol Lactate 5 mg 03/13/21 11:15 03/13/21 11:28 Haloperidol Lactate 5 Mg/1 Ml Inj IV 5 mg Q6H PRN Administration Agitation Argatroban 250 mg/ Sodium 250 mls @ 1.527 mls/hr 03/20/21 08:00 Chloride IV DIRECT PRINCESS 0.5 MCG/KG/MIN Sodium Chloride 500 mls @ 0 mls/hr 03/20/21 08:14 Nacl 0.9% 500 Ml IV 03/20/21 23:59 ONCE NR As Directed Insulin Human Lispro 0 unit 03/10/21 12:00 03/20/21 06:38 Insulin Lispro 100 Unit/Ml SUB-Q 2 unit Q6HR PRINCESS Administration Protocol Methylprednisolone Sodium Succinate 40 mg 03/18/21 12:00 03/20/21 09:20 Methylprednisolone Sod Succinate 40 Mg/1 Ml Inj IV 40 mg Q24HR PRINCESS Administration Metoclopramide HCl 10 mg 03/08/21 21:36 Metoclopramide 10 Mg/2 Ml Inj IV Q6H PRN Nausea And Vomiting Metoprolol Tartrate 5 mg 03/17/21 16:00 03/20/21 09:23 Metoprolol Tartrate 5 Mg/5 Ml Inj IV 5 mg Q6H PRINCESS Administration Morphine Sulfate 1 mg 03/14/21 17:07 03/16/21 09:35 Morphine 2 Mg/1 Ml Inj IV 1 mg Q4H PRN Administration Pain, Moderate (4-6) Nitroglycerin 0.4 mg 03/16/21 06:00 03/20/21 06:37 Nitroglycerin 0.4 Mg Patch 24hr TD 0.4 mg QDAY@0600 PRINCESS Administration Ondansetron HCl 4 mg 03/08/21 21:36 Ondansetron 4 Mg/2 Ml Inj IV Q3H PRN Nausea And Vomiting Pantoprazole Sodium 40 mg 03/13/21 13:00 03/20/21 09:19 Pantoprazole 40 Mg Inj IV 40 mg BID PRINCESS Administration Simple Syrup 15 ml 03/08/21 21:42 Simple Syrup 15 Ml FEEDTUBE PRN PRN Hypoglycemia Simple Syrup 30 ml 03/08/21 21:42 Simple Syrup 15 Ml FEEDTUBE PRN PRN Hypoglycemia Sodium Bicarbonate 325 mg 03/08/21 21:42 Sodium Bicarbonate 325 Mg Tab FEEDTUBE PRN PRN For Clogged Feeding Tube Sodium Chloride 10 ml 03/08/21 22:00 03/20/21 09:20 Sodium Chloride 0.9% 10 Ml Flush Syringe IV 10 ml BID PRINCESS Administration Sodium Chloride 10 ml 03/08/21 21:36 03/16/21 05:17 Sodium Chloride 0.9% 10 Ml Flush Syringe IV 10 ml PRN PRN Administration LINE FLUSH HEART Score - HEART Score Age: > 65 Risk factors: No known risk factors Troponin: Troponin T 0.261 ng/mL (0.00-0.029) H* D 03/12/21 04:40 Troponin: < normal limit - Critical Actions Critical Actions: 0-3 pts:0.9-1.7%risk of adverse cardiac event.Candidate for discharge
[2021-03-20] MEDS ORDERED: SODIUM CHLORIDE 0.9% 500 ML 500 ML IV SCH (15:44)
[2021-03-20 15:49] LABS: Heparin-Induced Platelet Antib Negative (Negative); Unfractionated Heparin Negative (Negative)
--- NOTE | 2021-03-20 19:19 | Gastroenterology Progress Note ---
Assessment and Plan # Anemia # Suspected GI bleed - per nursing, noted to have black stool on 03/13/2021. Heparin drip was held. 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 - CT showing moderate right iliopsoas hematoma. - suspect possible upper GI bleed with PUD as well given report of black stools in the setting of anticoagulation. - currently no signs of active GI bleeding. - Hgb fluactuating and down to 6.7 today. rec - supportive care - cont with PPI IV - monitor H/H and for signs of bleeding. - monitor platelets and transfuse as needed. - patient currently on plavix and ASA for recent PCI for STEMI/cardiac arrest. No GI contraindication for DAPT given no signs of active GI bleeding. - will follow. No plans for endoscopy at this time given no signs of active bleeding. - Patient Problems (1) Anemia Current Visit: Yes Status: Chronic Qualifiers: Anemia type: unspecified type Qualified Code(s): D64.9 - Anemia, unspecified Subjective Date of service: 03/20/21 Principal diagnosis: Respiratory distress, DC Interval history: Patient without any BM per nursing. Remains on venti mask. Objective - Constitutional Vitals: Temp Pulse Resp BP Pulse Ox 98.6 F 89 17 166/64 100 03/20/21 16:39 03/20/21 18:30 03/20/21 18:30 03/20/21 18:30 03/20/21 18:30 General appearance: no acute distress, cachectic - Respiratory Respiratory: bilateral: diminished - Cardiovascular Rhythm: regular Heart Sounds: Present: S1 & S2 - Gastrointestinal General gastrointestinal: Present: soft, non-tender, non-distended - Labs CBC & Chem 7: 03/20/21 04:47 03/20/21 04:47 Labs: Laboratory Results - last 24 hr 03/17/21 03/17/21 03/19/21 06:30 09:20 20:58 WBC RBC Hgb Hct MCV MCH MCHC RDW Plt Count APTT Heparin Anti-Xa, Unfract Negative Sodium Potassium Chloride Carbon Dioxide Anion Gap BUN Creatinine Estimated GFR BUN/Creatinine Ratio Glucose POC Glucose 191 H Calcium Phosphorus Magnesium Heparin-induced Plt Ab Negative UF Heparin High Dose 3 MARGARITA UFH Low Dose 0.1 0 MARGARITA UFH Low Dose 0.5 0 Blood Type B POSITIVE Antibody Screen Negative Crossmatch See Detail 03/19/21 03/20/21 03/20/21 21:00 00:25 04:47 WBC 29.6 H RBC 2.26 L Hgb 6.9 L Hct 20.3 L MCV 90 MCH 30 MCHC 34 RDW 15.6 H Plt Count 51 L APTT 80.5 H* Heparin Anti-Xa, Unfract Sodium Potassium Chloride Carbon Dioxide Anion Gap BUN Creatinine Estimated GFR BUN/Creatinine Ratio Glucose POC Glucose 139 H Calcium Phosphorus Magnesium Heparin-induced Plt Ab UF Heparin High Dose MARGARITA UFH Low Dose 0.1 MARGARITA UFH Low Dose 0.5 Blood Type Antibody Screen Crossmatch 03/20/21 03/20/21 03/20/21 04:47 04:47 04:47 WBC RBC Hgb Hct MCV MCH MCHC RDW Plt Count APTT 105.0 H* Heparin Anti-Xa, Unfract Sodium 139 Potassium 3.3 L Chloride 92.4 L Carbon Dioxide 47 H* Anion Gap 3 BUN 23 H Creatinine 0.8 Estimated GFR > 60 BUN/Creatinine Ratio 29 Glucose 154 H POC Glucose Calcium 7.6 L Phosphorus 2.60 Magnesium 1.70 Heparin-induced Plt Ab UF Heparin High Dose MARGARITA UFH Low Dose 0.1 MARGARITA UFH Low Dose 0.5 Blood Type Antibody Screen Crossmatch 03/20/21 03/20/21 03/20/21 05:47 10:54 11:59 WBC RBC Hgb Hct MCV MCH MCHC RDW Plt Count APTT Heparin Anti-Xa, Unfract Sodium Potassium Chloride Carbon Dioxide Anion Gap BUN Creatinine Estimated GFR BUN/Creatinine Ratio Glucose POC Glucose 166 H 203 H Calcium Phosphorus Magnesium Heparin-induced Plt Ab UF Heparin High Dose MARGARITA UFH Low Dose 0.1 MARGARITA UFH Low Dose 0.5 Blood Type B POSITIVE Antibody Screen Negative Crossmatch See Detail 03/20/21 03/20/21 13:22 17:04 WBC RBC Hgb Hct MCV MCH MCHC RDW Plt Count APTT 67.9 H* Heparin Anti-Xa, Unfract Sodium Potassium Chloride Carbon Dioxide Anion Gap BUN Creatinine Estimated GFR BUN/Creatinine Ratio Glucose POC Glucose 138 H Calcium Phosphorus Magnesium Heparin-induced Plt Ab UF Heparin High Dose MARGARITA UFH Low Dose 0.1 MARGARITA UFH Low Dose 0.5 Blood Type Antibody Screen Crossmatch
[2021-03-20 22:06] LABS: Hematocrit 26.1 % (35.5-45.6); Hemoglobin 8.9 gm/dl (11.8-15.2)
[2021-03-20] MEDS: HALOPERIDOL LACTATE 5 MG/1 ML INJ IV PRN (22:52)
[2021-03-20] MEDS ORDERED: LORazepam 2 MG/ML VIAL ONE (23:20)
[2021-03-20] MEDS ORDERED: LORazepam 2 MG/ML VIAL IV ONE (23:23)
[2021-03-21] MEDS ORDERED: LORazepam 2 MG/ML VIAL IV PRN
[2021-03-21] MEDS: INSULIN LISPRO 100 UNIT/ML SUB-Q SCH ×4 (01:00→17:41)
--- NOTE | 2021-03-21 02:49 | Progress Note ---
Assessment and Plan 65 y/o male with acute respiratory, exact etiology unknown 03/21/21: BM on dayshift but not concerning for bleeding per overnight nurse. Repeat H/H good. Suggest repeating tomorrow morning. Consider IV lasix during the day today pending BP and repeat H/H's. one time dose of 20 should be enough. Spoke with RT tonight, should try on nasal cannula in the am. Guarded prognosis. Suggest continue ICU monitoring for now. 03/20/21: Still with concern in regards to argotroban use and now with continued decrease in platelets and slow drop in hemoglobin. Very low threshold to stop if needed. Feeding tube in place and tolerating. Will discuss with RT reasoning for order for bipap therapy. CXR does shows right sided effusion, but no plans to do thora at this time, given increased risk of bleeding. Hold on lasix today. Replace electrolytes. Will continue ICU monitoring. Very very guarded prognosis. Per vascular, attempt to revascularize leg on early part of next week. 03/19/21: No evidence of bleeding and H/H has been stable. Continue argatroban. Vascular plans for revascularization on next week. Now that on feeds and tolerating will stop D10. Continue q4 FSBS for the next 24 hours then reassess tomorrow. Lasix 20mg IV x1 today. Desats at night maybe from central sleep apnea given low EF. Will order bipap QHS and hopeful diuresis will help with this too. Continue bronchodilator therapy. Steroids are per heme. Will continue to follow. 03/18/21: Spoke with Heme over the phone, agree with current plan in regards to the lowest dose of argatroban. I have increased the frequency of H/H checks to q6 and plan is if the HgB drops more than 2 points to stop the anticoagulation. He is also not eating, so he is currently on D10. Will attempt to place dobb- josep and tube feeds. Continue q4 hour FSBS to make sure severe hypoglycemia does not occur. Wean FiO2 for sats >88%. Continue pulmicort and brovana therapy. May need nicotine patch. 03/13/21: Clinically appears stable. HgB is down to 9.1, came in at 13 but this may heme concentrated. Appears stable for transfer]. Medical therapy for CAD. Will change steroids to 40q8 03/12/21: Clinically appears stable. Will discuss with cards but I feel patient is stable for step down vs tele. Likely no tele beds available but could down grade and keep in unit. Will discuss and make a decision later today. 03/11/21: Follow up cath results. Monitor volume status. Maintain potassium of 4 and mag of 2. monitor renal function. Goal directed medical therapy. Wean FiO2 for sats >88% down to baseline of 2 liters NC. Will continue to follow. Smoking cessation. 03/10/21: Sedation stopped and now discontinued from OCT. 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 The repeat EKG still shows some ST elevation in V3 but T waves have inverted V4, V5 and V6. Per the tech, the tech from yesterday did an EKG off the wrong order but the EKG showing ST elevations was not shown to a physician. Will order Troponin now and obtain 2D echo once COVID results are back. At this point, pending these labs will determine cardiology consult. As stated before, hemodynamically the patient is stable. Tech needs order for EKG but as I explained, not able to back date an order and there was not an order for that EKG to begin with. Very difficult case in regards to EKG. Will speak with risk about this. 1. Continue supportive measures 2. CXR is stable and IJ in good position 3. Per Nurse, patient has COPD and chronic respiratory failure and is still smoking. Guarded prognosis Subjective Date of service: 03/21/21 Principal diagnosis: Respiratory distress, NH Interval history: On bipap but was restless with it earlier. Given ativan and it helped. Haldol did not work per nursing. Good sats on bipap. 16/10 45%. Objective Vital Signs - 12hr 03/20/21 03/20/21 03/20/21 15:00 15:30 16:00 Temperature Pulse Rate 90 88 Pulse Rate [ Bilateral Throughout] Respiratory 16 16 Rate Respiratory Rate [Bilateral Throughout] Blood Pressure 138/60 135/45 O2 Sat by Pulse 96 98 94 Oximetry 03/20/21 03/20/21 03/20/21 16:01 16:02 16:31 Temperature 99 F Pulse Rate 91 H 100 H Pulse Rate [ Bilateral Throughout] Respiratory 16 22 Rate Respiratory Rate [Bilateral Throughout] Blood Pressure 119/50 173/53 O2 Sat by Pulse 95 87 Oximetry 03/20/21 03/20/21 03/20/21 16:39 17:00 17:31 Temperature 98.6 F Pulse Rate 103 H 93 H Pulse Rate [ Bilateral Throughout] Respiratory 23 24 Rate Respiratory Rate [Bilateral Throughout] Blood Pressure 163/58 168/58 O2 Sat by Pulse 73 L Oximetry 03/20/21 03/20/21 03/20/21 18:01 18:30 18:32 Temperature Pulse Rate 88 89 91 H Pulse Rate [ Bilateral Throughout] Respiratory 14 17 21 Rate Respiratory Rate [Bilateral Throughout] Blood Pressure 163/64 166/64 166/64 O2 Sat by Pulse 100 100 100 Oximetry 03/20/21 03/20/21 03/20/21 19:00 19:30 20:00 Temperature 99.0 F Pulse Rate 97 H 87 Pulse Rate [ Bilateral Throughout] Respiratory 23 16 Rate Respiratory Rate [Bilateral Throughout] Blood Pressure 191/86 161/63 O2 Sat by Pulse 100 100 Oximetry 03/20/21 03/20/21 03/20/21 20:01 20:31 21:01 Temperature Pulse Rate 100 H 88 Pulse Rate [ Bilateral Throughout] Respiratory 18 16 19 Rate Respiratory Rate [Bilateral Throughout] Blood Pressure 132/78 142/82 142/64 O2 Sat by Pulse 100 100 100 Oximetry 03/20/21 03/20/21 03/20/21 21:31 22:01 22:31 Temperature Pulse Rate 120 H 96 H 98 H Pulse Rate [ Bilateral Throughout] Respiratory 24 20 17 Rate Respiratory Rate [Bilateral Throughout] Blood Pressure 142/64 129/65 129/65 O2 Sat by Pulse 97 99 100 Oximetry 03/20/21 03/20/21 03/20/21 23:00 23:06 23:11 Temperature Pulse Rate 96 H 97 H Pulse Rate [ 103 H Bilateral Throughout] Respiratory 18 21 Rate Respiratory 23 Rate [Bilateral Throughout] Blood Pressure 124/58 124/58 O2 Sat by Pulse 100 96 Oximetry 03/20/21 03/21/21 03/21/21 23:31 00:00 00:31 Temperature 99.2 F Pulse Rate 91 H 86 87 Pulse Rate [ Bilateral Throughout] Respiratory 19 14 13 Rate Respiratory Rate [Bilateral Throughout] Blood Pressure 124/58 106/46 124/58 O2 Sat by Pulse 99 97 99 Oximetry 03/21/21 03/21/21 03/21/21 01:00 01:31 02:00 Temperature Pulse Rate 80 80 77 Pulse Rate [ Bilateral Throughout] Respiratory 16 15 14 Rate Respiratory Rate [Bilateral Throughout] Blood Pressure 113/43 113/43 108/54 O2 Sat by Pulse 100 100 100 Oximetry Constitutional: lethargic, other (but arousable) Eyes: non-icteric ENT: other (orally intubated and sedated.) Neck: supple Effort: normal Ascultation: Bilateral: diminished breath sounds Cardiovascular: regular rate and rhythm Gastrointestinal: normoactive bowel sounds, soft Extremities: no edema, pink and warm Neurologic: unable to assess CBC and BMP: 03/20/21 21:40 03/20/21 04:47 ABG, PT/INR, D-dimer: ABG ABG pH 7.389 (7.320-7.450) 03/17/21 00:35 POC ABG pCO2 69.0 mmHg (32.0-48.0) H 03/17/21 00:35 ABG pCO2 43.0 mm Hg 03/08/21 15:12 POC ABG pO2 84.0 mmHg (83-108) 03/17/21 00:35 ABG pO2 381.9 mm Hg (80.0-90.0) H 03/08/21 15:12 POC ABG HCO3 40.7 03/17/21 00:35 ABG O2 Saturation 95.3 (0-100) 03/17/21 00:35 PT/INR, D-dimer PT 14.6 Sec. (12.2-14.9) 03/11/21 21:50 INR 1.09 (0.87-1.13) 03/11/21 21:50 D-Dimer 832.06 ng/mlDDU (0-234) H 03/08/21 15:49 Abnormal lab findings: Abnormal Labs 03/08/21 03/08/21 03/08/21 15:12 15:49 15:49 WBC RBC Hgb Hct MCV 95 H RDW 12.8 L Plt Count Lymph % (Auto) 5.1 L [place] % (Auto) 8.6 H Lymph # (Auto) 0.4 L [place] # (Auto) Seg Neutrophils % 86.1 H Seg Neuts % (Manual) Lymphocytes % (Manual) Seg Neutrophils # Seg Neutrophils # Man Lymphocytes # (Manual) APTT 37.1 H D-Dimer 832.06 H ABG pH 7.478 H POC ABG pCO2 POC ABG pO2 ABG pO2 381.9 H ABG HCO3 31.2 H ABG O2 Saturation 99.6 H ABG Base Excess 6.9 H ABG Hemoglobin 13.0 L ABG Oxyhemoglobin ABG Sodium ABG Potassium ABG Chloride ABG Glucose Carboxyhemoglobin Sodium Potassium Chloride Carbon Dioxide BUN Creatinine Glucose POC Glucose Lactic Acid Calcium Phosphorus Magnesium Ferritin Direct Bilirubin AST ALT Ammonia Lactate Dehydrogenase Total Creatine Kinase CK-MB (CK-2) CK-MB (CK-2) Rel Index Troponin T C-Reactive Protein Total Protein Albumin Prealbumin Triglycerides HDL Cholesterol Arterial Blood Glucose Arterial Blood Ionized Calcium Acetaminophen Crossmatch 03/08/21 03/08/21 03/08/21 15:49 15:49 15:49 WBC RBC Hgb Hct MCV RDW Plt Count Lymph % (Auto) [place] % (Auto) Lymph # (Auto) [place] # (Auto) Seg Neutrophils % Seg Neuts % (Manual) Lymphocytes % (Manual) Seg Neutrophils # Seg Neutrophils # Man Lymphocytes # (Manual) APTT D-Dimer ABG pH POC ABG pCO2 POC ABG pO2 ABG pO2 ABG HCO3 ABG O2 Saturation ABG Base Excess ABG Hemoglobin ABG Oxyhemoglobin ABG Sodium ABG Potassium ABG Chloride ABG Glucose Carboxyhemoglobin Sodium 134 L Potassium Chloride 89.7 L Carbon Dioxide 32 H BUN 47 H Creatinine Glucose 150 H POC Glucose Lactic Acid Calcium Phosphorus Magnesium Ferritin Direct Bilirubin AST ALT Ammonia 22.0 L Lactate Dehydrogenase Total Creatine Kinase 52 L CK-MB (CK-2) CK-MB (CK-2) Rel Index Troponin T C-Reactive Protein Total Protein Albumin 3.2 L Prealbumin Triglycerides HDL Cholesterol Arterial Blood Glucose Arterial Blood Ionized Calcium Acetaminophen Crossmatch 03/08/21 03/08/21 03/08/21 15:49 15:49 15:49 WBC RBC Hgb Hct MCV RDW Plt Count Lymph % (Auto) [place] % (Auto) Lymph # (Auto) [place] # (Auto) Seg Neutrophils % Seg Neuts % (Manual) Lymphocytes % (Manual) Seg Neutrophils # Seg Neutrophils # Man Lymphocytes # (Manual) APTT D-Dimer ABG pH POC ABG pCO2 POC ABG pO2 ABG pO2 ABG HCO3 ABG O2 Saturation ABG Base Excess ABG Hemoglobin ABG Oxyhemoglobin ABG Sodium ABG Potassium ABG Chloride ABG Glucose Carboxyhemoglobin Sodium Potassium Chloride Carbon Dioxide BUN Creatinine Glucose 150 H POC Glucose Lactic Acid 3.40 H* Calcium Phosphorus Magnesium Ferritin Direct Bilirubin AST ALT Ammonia Lactate Dehydrogenase 209 H Total Creatine Kinase CK-MB (CK-2) CK-MB (CK-2) Rel Index Troponin T C-Reactive Protein 24.00 H Total Protein Albumin Prealbumin Triglycerides HDL Cholesterol Arterial Blood Glucose Arterial Blood Ionized Calcium Acetaminophen 5.0 L Crossmatch 03/08/21 03/08/21 03/09/21 15:49 23:27 00:00 WBC RBC Hgb Hct MCV RDW Plt Count Lymph % (Auto) [place] % (Auto) Lymph # (Auto) [place] # (Auto) Seg Neutrophils % Seg Neuts % (Manual) Lymphocytes % (Manual) Seg Neutrophils # Seg Neutrophils # Man Lymphocytes # (Manual) APTT D-Dimer ABG pH POC ABG pCO2 POC ABG pO2 ABG pO2 ABG HCO3 ABG O2 Saturation ABG Base Excess ABG Hemoglobin ABG Oxyhemoglobin ABG Sodium ABG Potassium ABG Chloride ABG Glucose Carboxyhemoglobin Sodium Potassium Chloride Carbon Dioxide BUN Creatinine Glucose POC Glucose 185 H Lactic Acid Calcium Phosphorus Magnesium Ferritin 1373.0 H Direct Bilirubin AST ALT Ammonia Lactate Dehydrogenase Total Creatine Kinase CK-MB (CK-2) CK-MB (CK-2) Rel Index Troponin T C-Reactive Protein Total Protein Albumin Prealbumin 0.058 L Triglycerides HDL Cholesterol Arterial Blood Glucose Arterial Blood Ionized Calcium Acetaminophen Crossmatch 03/09/21 03/09/21 03/09/21 05:11 06:18 06:18 WBC RBC 3.50 L Hgb 10.8 L Hct 32.8 L D MCV RDW 13.1 L Plt Count 111 L Lymph % (Auto) 9.9 L [place] % (Auto) 9.2 H Lymph # (Auto) 0.5 L [place] # (Auto) Seg Neutrophils % 80.4 H Seg Neuts % (Manual) Lymphocytes % (Manual) Seg Neutrophils # Seg Neutrophils # Man Lymphocytes # (Manual) APTT D-Dimer ABG pH POC ABG pCO2 POC ABG pO2 ABG pO2 ABG HCO3 ABG O2 Saturation ABG Base Excess ABG Hemoglobin ABG Oxyhemoglobin ABG Sodium ABG Potassium ABG Chloride ABG Glucose Carboxyhemoglobin Sodium 135 L Potassium 5.3 H Chloride Carbon Dioxide BUN 46 H Creatinine Glucose 178 H POC Glucose 183 H Lactic Acid Calcium 8.2 L Phosphorus Magnesium Ferritin Direct Bilirubin AST ALT Ammonia Lactate Dehydrogenase Total Creatine Kinase CK-MB (CK-2) CK-MB (CK-2) Rel Index Troponin T C-Reactive Protein Total Protein 6.1 L Albumin 2.4 L Prealbumin Triglycerides HDL Cholesterol Arterial Blood Glucose Arterial Blood Ionized Calcium Acetaminophen Crossmatch 03/09/21 03/09/21 03/09/21 07:40 11:39 18:09 WBC RBC Hgb Hct MCV RDW Plt Count Lymph % (Auto) [place] % (Auto) Lymph # (Auto) [place] # (Auto) Seg Neutrophils % Seg Neuts % (Manual) Lymphocytes % (Manual) Seg Neutrophils # Seg Neutrophils # Man Lymphocytes # (Manual) APTT D-Dimer ABG pH 7.485 H POC ABG pCO2 POC ABG pO2 179.1 H ABG pO2 ABG HCO3 ABG O2 Saturation ABG Base Excess ABG Hemoglobin 10.8 L ABG Oxyhemoglobin 99.1 H ABG Sodium 133.2 L ABG Potassium ABG Chloride ABG Glucose 175 H Carboxyhemoglobin 0 L Sodium Potassium Chloride Carbon Dioxide BUN Creatinine Glucose POC Glucose 165 H 167 H Lactic Acid Calcium Phosphorus Magnesium Ferritin Direct Bilirubin AST ALT Ammonia Lactate Dehydrogenase Total Creatine Kinase CK-MB (CK-2) CK-MB (CK-2) Rel Index Troponin T C-Reactive Protein Total Protein Albumin Prealbumin Triglycerides HDL Cholesterol Arterial Blood Glucose 175 H Arterial Blood Ionized Calcium 4.3 L Acetaminophen Crossmatch 03/09/21 03/10/21 03/10/21 23:53 02:59 05:14 WBC 12.0 H RBC Hgb 11.7 L Hct MCV 95 H RDW Plt Count Lymph % (Auto) 2.6 L [place] % (Auto) 7.5 H Lymph # (Auto) 0.3 L [place] # (Auto) 0.9 H Seg Neutrophils % 89.8 H Seg Neuts % (Manual) Lymphocytes % (Manual) Seg Neutrophils # 10.8 H Seg Neutrophils # Man Lymphocytes # (Manual) APTT D-Dimer ABG pH POC ABG pCO2 POC ABG pO2 ABG pO2 ABG HCO3 ABG O2 Saturation ABG Base Excess ABG Hemoglobin 11.9 L ABG Oxyhemoglobin ABG Sodium ABG Potassium ABG Chloride 108.0 H ABG Glucose 232 H Carboxyhemoglobin 0.3 L Sodium Potassium Chloride Carbon Dioxide BUN Creatinine Glucose POC Glucose 210 H Lactic Acid Calcium Phosphorus Magnesium Ferritin Direct Bilirubin AST ALT Ammonia Lactate Dehydrogenase Total Creatine Kinase CK-MB (CK-2) CK-MB (CK-2) Rel Index Troponin T C-Reactive Protein Total Protein Albumin Prealbumin Triglycerides HDL Cholesterol Arterial Blood Glucose 232 H Arterial Blood Ionized Calcium 4.4 L Acetaminophen Crossmatch 03/10/21 03/10/21 03/10/21 05:14 05:14 05:14 WBC RBC Hgb Hct MCV RDW Plt Count Lymph % (Auto) [place] % (Auto) Lymph # (Auto) [place] # (Auto) Seg Neutrophils % Seg Neuts % (Manual) Lymphocytes % (Manual) Seg Neutrophils # Seg Neutrophils # Man Lymphocytes # (Manual) APTT D-Dimer ABG pH POC ABG pCO2 POC ABG pO2 ABG pO2 ABG HCO3 ABG O2 Saturation ABG Base Excess ABG Hemoglobin ABG Oxyhemoglobin ABG Sodium ABG Potassium ABG Chloride ABG Glucose Carboxyhemoglobin Sodium Potassium Chloride 107.2 H Carbon Dioxide BUN 48 H Creatinine Glucose 218 H POC Glucose Lactic Acid Calcium 7.9 L Phosphorus Magnesium Ferritin Direct Bilirubin AST 41 H ALT Ammonia Lactate Dehydrogenase Total Creatine Kinase CK-MB (CK-2) 17.8 H CK-MB (CK-2) Rel Index 18.1 H Troponin T 0.798 H* C-Reactive Protein Total Protein 5.7 L Albumin 2.7 L Prealbumin Triglycerides 173 H HDL Cholesterol 36 L Arterial Blood Glucose Arterial Blood Ionized Calcium Acetaminophen Crossmatch 03/10/21 03/10/21 03/10/21 05:35 11:43 18:17 WBC RBC Hgb Hct MCV RDW Plt Count Lymph % (Auto) [place] % (Auto) Lymph # (Auto) [place] # (Auto) Seg Neutrophils % Seg Neuts % (Manual) Lymphocytes % (Manual) Seg Neutrophils # Seg Neutrophils # Man Lymphocytes # (Manual) APTT D-Dimer ABG pH POC ABG pCO2 POC ABG pO2 ABG pO2 ABG HCO3 ABG O2 Saturation ABG Base Excess ABG Hemoglobin ABG Oxyhemoglobin ABG Sodium ABG Potassium ABG Chloride ABG Glucose Carboxyhemoglobin Sodium Potassium Chloride Carbon Dioxide BUN Creatinine Glucose POC Glucose 210 H 221 H 120 H Lactic Acid Calcium Phosphorus Magnesium Ferritin Direct Bilirubin AST ALT Ammonia Lactate Dehydrogenase Total Creatine Kinase CK-MB (CK-2) CK-MB (CK-2) Rel Index Troponin T C-Reactive Protein Total Protein Albumin Prealbumin Triglycerides HDL Cholesterol Arterial Blood Glucose Arterial Blood Ionized Calcium Acetaminophen Crossmatch 03/10/21 03/11/21 03/11/21 18:40 00:44 08:00 WBC RBC Hgb Hct MCV RDW Plt Count Lymph % (Auto) [place] % (Auto) Lymph # (Auto) [place] # (Auto) Seg Neutrophils % Seg Neuts % (Manual) Lymphocytes % (Manual) Seg Neutrophils # Seg Neutrophils # Man Lymphocytes # (Manual) APTT D-Dimer ABG pH POC ABG pCO2 POC ABG pO2 ABG pO2 ABG HCO3 ABG O2 Saturation ABG Base Excess ABG Hemoglobin ABG Oxyhemoglobin ABG Sodium ABG Potassium ABG Chloride ABG Glucose Carboxyhemoglobin Sodium Potassium Chloride Carbon Dioxide BUN Creatinine Glucose POC Glucose Lactic Acid Calcium Phosphorus Magnesium Ferritin Direct Bilirubin AST ALT Ammonia Lactate Dehydrogenase Total Creatine Kinase CK-MB (CK-2) CK-MB (CK-2) Rel Index Troponin T 0.477 H* D 0.430 H* 0.363 H* C-Reactive Protein Total Protein Albumin Prealbumin Triglycerides HDL Cholesterol Arterial Blood Glucose Arterial Blood Ionized Calcium Acetaminophen Crossmatch 03/11/21 03/11/21 03/11/21 08:00 08:00 11:26 WBC 14.7 H RBC 3.62 L Hgb 11.3 L Hct 34.4 L MCV 95 H RDW Plt Count Lymph % (Auto) [place] % (Auto) Lymph # (Auto) [place] # (Auto) Seg Neutrophils % Seg Neuts % (Manual) Lymphocytes % (Manual) Seg Neutrophils # Seg Neutrophils # Man Lymphocytes # (Manual) APTT D-Dimer ABG pH POC ABG pCO2 POC ABG pO2 ABG pO2 ABG HCO3 ABG O2 Saturation ABG Base Excess ABG Hemoglobin ABG Oxyhemoglobin ABG Sodium ABG Potassium ABG Chloride ABG Glucose Carboxyhemoglobin Sodium Potassium Chloride Carbon Dioxide BUN 34 H Creatinine Glucose 167 H POC Glucose 157 H Lactic Acid Calcium Phosphorus 2.40 L Magnesium 2.40 H Ferritin Direct Bilirubin AST ALT Ammonia Lactate Dehydrogenase Total Creatine Kinase CK-MB (CK-2) CK-MB (CK-2) Rel Index Troponin T C-Reactive Protein Total Protein 6.1 L Albumin 2.7 L Prealbumin Triglycerides HDL Cholesterol Arterial Blood Glucose Arterial Blood Ionized Calcium Acetaminophen Crossmatch 0803/11/21 03/12/21 17:31 21:50 03:05 WBC RBC Hgb 10.7 L Hct 33.6 L MCV RDW Plt Count Lymph % (Auto) [place] % (Auto) Lymph # (Auto) [place] # (Auto) Seg Neutrophils % Seg Neuts % (Manual) Lymphocytes % (Manual) Seg Neutrophils # Seg Neutrophils # Man Lymphocytes # (Manual) APTT D-Dimer ABG pH POC ABG pCO2 POC ABG pO2 ABG pO2 ABG HCO3 ABG O2 Saturation ABG Base Excess ABG Hemoglobin ABG Oxyhemoglobin ABG Sodium ABG Potassium ABG Chloride ABG Glucose Carboxyhemoglobin Sodium Potassium Chloride Carbon Dioxide BUN Creatinine Glucose POC Glucose 154 H 139 H Lactic Acid Calcium Phosphorus Magnesium Ferritin Direct Bilirubin AST ALT Ammonia Lactate Dehydrogenase Total Creatine Kinase CK-MB (CK-2) CK-MB (CK-2) Rel Index Troponin T C-Reactive Protein Total Protein Albumin Prealbumin Triglycerides HDL Cholesterol Arterial Blood Glucose Arterial Blood Ionized Calcium Acetaminophen Crossmatch 03/12/21 03/12/21 03/12/21 04:40 04:40 06:03 WBC 11.6 H RBC 3.28 L Hgb 10.3 L Hct 31.3 L MCV 96 H RDW Plt Count Lymph % (Auto) [place] % (Auto) Lymph # (Auto) [place] # (Auto) Seg Neutrophils % Seg Neuts % (Manual) 92.0 H Lymphocytes % (Manual) 3.0 L Seg Neutrophils # Seg Neutrophils # Man 10.7 H Lymphocytes # (Manual) 0.3 L APTT D-Dimer ABG pH POC ABG pCO2 POC ABG pO2 ABG pO2 ABG HCO3 ABG O2 Saturation ABG Base Excess ABG Hemoglobin ABG Oxyhemoglobin ABG Sodium ABG Potassium ABG Chloride ABG Glucose Carboxyhemoglobin Sodium Potassium Chloride 108.7 H Carbon Dioxide BUN 28 H Creatinine Glucose 137 H POC Glucose 137 H Lactic Acid Calcium 8.2 L Phosphorus Magnesium Ferritin Direct Bilirubin AST ALT Ammonia Lactate Dehydrogenase Total Creatine Kinase CK-MB (CK-2) CK-MB (CK-2) Rel Index Troponin T 0.261 H* D C-Reactive Protein Total Protein Albumin Prealbumin Triglycerides HDL Cholesterol Arterial Blood Glucose Arterial Blood Ionized Calcium Acetaminophen Crossmatch 03/12/21 03/12/21 03/13/21 14:17 17:28 04:09 WBC RBC Hgb 9.1 L Hct 27.7 L MCV RDW Plt Count Lymph % (Auto) [place] % (Auto) Lymph # (Auto) [place] # (Auto) Seg Neutrophils % Seg Neuts % (Manual) Lymphocytes % (Manual) Seg Neutrophils # Seg Neutrophils # Man Lymphocytes # (Manual) APTT D-Dimer ABG pH POC ABG pCO2 POC ABG pO2 ABG pO2 ABG HCO3 ABG O2 Saturation ABG Base Excess ABG Hemoglobin ABG Oxyhemoglobin ABG Sodium ABG Potassium ABG Chloride ABG Glucose Carboxyhemoglobin Sodium Potassium Chloride Carbon Dioxide BUN Creatinine Glucose POC Glucose 165 H 111 H Lactic Acid Calcium Phosphorus Magnesium Ferritin Direct Bilirubin AST ALT Ammonia Lactate Dehydrogenase Total Creatine Kinase CK-MB (CK-2) CK-MB (CK-2) Rel Index Troponin T C-Reactive Protein Total Protein Albumin Prealbumin Triglycerides HDL Cholesterol Arterial Blood Glucose Arterial Blood Ionized Calcium Acetaminophen Crossmatch 03/13/21 03/13/21 03/13/21 05:04 11:28 14:25 WBC RBC Hgb 6.7 L Hct 19.7 L* D MCV RDW Plt Count Lymph % (Auto) [place] % (Auto) Lymph # (Auto) [place] # (Auto) Seg Neutrophils % Seg Neuts % (Manual) Lymphocytes % (Manual) Seg Neutrophils # Seg Neutrophils # Man Lymphocytes # (Manual) APTT D-Dimer ABG pH POC ABG pCO2 POC ABG pO2 ABG pO2 ABG HCO3 ABG O2 Saturation ABG Base Excess ABG Hemoglobin ABG Oxyhemoglobin ABG Sodium ABG Potassium ABG Chloride ABG Glucose Carboxyhemoglobin Sodium Potassium Chloride Carbon Dioxide BUN Creatinine Glucose POC Glucose 113 H 148 H Lactic Acid Calcium Phosphorus Magnesium Ferritin Direct Bilirubin AST ALT Ammonia Lactate Dehydrogenase Total Creatine Kinase CK-MB (CK-2) CK-MB (CK-2) Rel Index Troponin T C-Reactive Protein Total Protein Albumin Prealbumin Triglycerides HDL Cholesterol Arterial Blood Glucose Arterial Blood Ionized Calcium Acetaminophen Crossmatch 03/13/21 03/13/21 03/13/21 15:22 17:25 19:16 WBC RBC Hgb Hct MCV RDW Plt Count Lymph % (Auto) [place] % (Auto) Lymph # (Auto) [place] # (Auto) Seg Neutrophils % Seg Neuts % (Manual) Lymphocytes % (Manual) Seg Neutrophils # Seg Neutrophils # Man Lymphocytes # (Manual) APTT D-Dimer ABG pH 7.174 L POC ABG pCO2 POC ABG pO2 78.7 L ABG pO2 ABG HCO3 ABG O2 Saturation ABG Base Excess ABG Hemoglobin 5.5 L ABG Oxyhemoglobin 88.8 L ABG Sodium 135.1 L ABG Potassium 5.2 H ABG Chloride 109.0 H ABG Glucose 96 H Carboxyhemoglobin Sodium Potassium Chloride Carbon Dioxide BUN Creatinine Glucose POC Glucose 47 L Lactic Acid Calcium Phosphorus Magnesium Ferritin Direct Bilirubin AST ALT Ammonia Lactate Dehydrogenase Total Creatine Kinase CK-MB (CK-2) CK-MB (CK-2) Rel Index Troponin T C-Reactive Protein Total Protein Albumin Prealbumin Triglycerides HDL Cholesterol Arterial Blood Glucose 96 H Arterial Blood Ionized Calcium 4.4 L Acetaminophen Crossmatch See Detail 03/13/21 03/13/21 03/13/21 20:06 20:16 20:24 WBC RBC Hgb 8.1 L Hct 24.1 L MCV RDW Plt Count Lymph % (Auto) [place] % (Auto) Lymph # (Auto) [place] # (Auto) Seg Neutrophils % Seg Neuts % (Manual) Lymphocytes % (Manual) Seg Neutrophils # Seg Neutrophils # Man Lymphocytes # (Manual) APTT D-Dimer ABG pH 7.094 L POC ABG pCO2 64.0 H POC ABG pO2 68.2 L ABG pO2 ABG HCO3 ABG O2 Saturation ABG Base Excess ABG Hemoglobin 7.9 L ABG Oxyhemoglobin 84.6 L ABG Sodium ABG Potassium 4.9 H ABG Chloride ABG Glucose 220 H Carboxyhemoglobin Sodium Potassium Chloride Carbon Dioxide BUN Creatinine Glucose POC Glucose 188 H Lactic Acid Calcium Phosphorus Magnesium Ferritin Direct Bilirubin AST ALT Ammonia Lactate Dehydrogenase Total Creatine Kinase CK-MB (CK-2) CK-MB (CK-2) Rel Index Troponin T C-Reactive Protein Total Protein Albumin Prealbumin Triglycerides HDL Cholesterol Arterial Blood Glucose 220 H Arterial Blood Ionized Calcium 4.1 L Acetaminophen Crossmatch 03/13/21 03/14/21 03/14/21 23:17 04:00 04:00 WBC 17.9 H RBC 2.55 L Hgb 7.8 L Hct 23.1 L MCV RDW Plt Count 111 L Lymph % (Auto) [place] % (Auto) Lymph # (Auto) [place] # (Auto) Seg Neutrophils % Seg Neuts % (Manual) 99.0 H Lymphocytes % (Manual) Seg Neutrophils # Seg Neutrophils # Man 17.7 H Lymphocytes # (Manual) 0.0 L APTT D-Dimer ABG pH POC ABG pCO2 POC ABG pO2 ABG pO2 ABG HCO3 ABG O2 Saturation ABG Base Excess ABG Hemoglobin ABG Oxyhemoglobin ABG Sodium ABG Potassium ABG Chloride ABG Glucose Carboxyhemoglobin Sodium Potassium Chloride Carbon Dioxide 35 H BUN 48 H Creatinine 1.7 H D Glucose 258 H POC Glucose 244 H Lactic Acid Calcium 7.2 L Phosphorus Magnesium Ferritin Direct Bilirubin AST ALT Ammonia Lactate Dehydrogenase Total Creatine Kinase CK-MB (CK-2) CK-MB (CK-2) Rel Index Troponin T C-Reactive Protein Total Protein Albumin Prealbumin Triglycerides HDL Cholesterol Arterial Blood Glucose Arterial Blood Ionized Calcium Acetaminophen Crossmatch 03/14/21 03/14/21 03/14/21 05:15 10:24 14:54 WBC RBC Hgb 8.3 L Hct 24.1 L MCV RDW Plt Count Lymph % (Auto) [place] % (Auto) Lymph # (Auto) [place] # (Auto) Seg Neutrophils % Seg Neuts % (Manual) Lymphocytes % (Manual) Seg Neutrophils # Seg Neutrophils # Man Lymphocytes # (Manual) APTT D-Dimer ABG pH 7.294 L POC ABG pCO2 69.4 H POC ABG pO2 128.0 H ABG pO2 ABG HCO3 ABG O2 Saturation ABG Base Excess ABG Hemoglobin 10.2 L ABG Oxyhemoglobin ABG Sodium ABG Potassium ABG Chloride ABG Glucose 130 H Carboxyhemoglobin 0.3 L Sodium Potassium Chloride Carbon Dioxide BUN Creatinine Glucose POC Glucose 203 H Lactic Acid Calcium Phosphorus Magnesium Ferritin Direct Bilirubin AST ALT Ammonia Lactate Dehydrogenase Total Creatine Kinase CK-MB (CK-2) CK-MB (CK-2) Rel Index Troponin T C-Reactive Protein Total Protein Albumin Prealbumin Triglycerides HDL Cholesterol Arterial Blood Glucose 130 H Arterial Blood Ionized Calcium 4.1 L Acetaminophen Crossmatch 03/14/21 03/14/21 03/15/21 17:37 23:39 04:00 WBC RBC Hgb 8.0 L Hct 23.4 L MCV RDW Plt Count 119 L Lymph % (Auto) [place] % (Auto) Lymph # (Auto) [place] # (Auto) Seg Neutrophils % Seg Neuts % (Manual) Lymphocytes % (Manual) Seg Neutrophils # Seg Neutrophils # Man Lymphocytes # (Manual) APTT D-Dimer ABG pH POC ABG pCO2 POC ABG pO2 ABG pO2 ABG HCO3 ABG O2 Saturation ABG Base Excess ABG Hemoglobin ABG Oxyhemoglobin ABG Sodium ABG Potassium ABG Chloride ABG Glucose Carboxyhemoglobin Sodium Potassium Chloride Carbon Dioxide BUN Creatinine Glucose POC Glucose 110 H 112 H Lactic Acid Calcium Phosphorus Magnesium Ferritin Direct Bilirubin AST ALT Ammonia Lactate Dehydrogenase Total Creatine Kinase CK-MB (CK-2) CK-MB (CK-2) Rel Index Troponin T C-Reactive Protein Total Protein Albumin Prealbumin Triglycerides HDL Cholesterol Arterial Blood Glucose Arterial Blood Ionized Calcium Acetaminophen Crossmatch 03/15/21 03/15/21 03/15/21 04:00 05:54 10:32 WBC RBC Hgb Hct MCV RDW Plt Count Lymph % (Auto) [place] % (Auto) Lymph # (Auto) [place] # (Auto) Seg Neutrophils % Seg Neuts % (Manual) Lymphocytes % (Manual) Seg Neutrophils # Seg Neutrophils # Man Lymphocytes # (Manual) APTT D-Dimer ABG pH POC ABG pCO2 71.5 H POC ABG pO2 ABG pO2 ABG HCO3 ABG O2 Saturation ABG Base Excess ABG Hemoglobin 7.9 L ABG Oxyhemoglobin ABG Sodium ABG Potassium ABG Chloride ABG Glucose 160 H Carboxyhemoglobin Sodium Potassium Chloride Carbon Dioxide 39 H BUN 41 H Creatinine 1.6 H Glucose 153 H POC Glucose 131 H Lactic Acid Calcium 7.0 L Phosphorus Magnesium Ferritin Direct Bilirubin AST ALT Ammonia Lactate Dehydrogenase Total Creatine Kinase CK-MB (CK-2) CK-MB (CK-2) Rel Index Troponin T C-Reactive Protein Total Protein Albumin Prealbumin Triglycerides HDL Cholesterol Arterial Blood Glucose 160 H Arterial Blood Ionized Calcium 3.9 L Acetaminophen Crossmatch 03/15/21 03/15/21 03/15/21 11:19 11:37 11:40 WBC RBC Hgb Hct MCV RDW Plt Count Lymph % (Auto) [place] % (Auto) Lymph # (Auto) [place] # (Auto) Seg Neutrophils % Seg Neuts % (Manual) Lymphocytes % (Manual) Seg Neutrophils # Seg Neutrophils # Man Lymphocytes # (Manual) APTT D-Dimer ABG pH POC ABG pCO2 POC ABG pO2 ABG pO2 ABG HCO3 ABG O2 Saturation ABG Base Excess ABG Hemoglobin ABG Oxyhemoglobin ABG Sodium ABG Potassium ABG Chloride ABG Glucose Carboxyhemoglobin Sodium Potassium Chloride Carbon Dioxide BUN Creatinine Glucose 317 H POC Glucose 28 L 25 L Lactic Acid Calcium Phosphorus Magnesium Ferritin Direct Bilirubin AST ALT Ammonia Lactate Dehydrogenase Total Creatine Kinase CK-MB (CK-2) CK-MB (CK-2) Rel Index Troponin T C-Reactive Protein Total Protein Albumin Prealbumin Triglycerides HDL Cholesterol Arterial Blood Glucose Arterial Blood Ionized Calcium Acetaminophen Crossmatch 03/15/21 03/15/21 03/15/21 12:33 20:05 20:15 WBC RBC Hgb 8.0 L Hct 23.5 L MCV RDW Plt Count Lymph % (Auto) [place] % (Auto) Lymph # (Auto) [place] # (Auto) Seg Neutrophils % Seg Neuts % (Manual) Lymphocytes % (Manual) Seg Neutrophils # Seg Neutrophils # Man Lymphocytes # (Manual) APTT D-Dimer ABG pH POC ABG pCO2 63.7 H POC ABG pO2 43.1 L ABG pO2 ABG HCO3 ABG O2 Saturation ABG Base Excess ABG Hemoglobin 8.1 L ABG Oxyhemoglobin 76.4 L ABG Sodium 134.8 L ABG Potassium ABG Chloride ABG Glucose 171 H Carboxyhemoglobin Sodium Potassium Chloride Carbon Dioxide BUN Creatinine Glucose POC Glucose 145 H Lactic Acid Calcium Phosphorus Magnesium Ferritin Direct Bilirubin AST ALT Ammonia Lactate Dehydrogenase Total Creatine Kinase CK-MB (CK-2) CK-MB (CK-2) Rel Index Troponin T C-Reactive Protein Total Protein Albumin Prealbumin Triglycerides HDL Cholesterol Arterial Blood Glucose 171 H Arterial Blood Ionized Calcium 3.9 L Acetaminophen Crossmatch 03/16/21 03/16/21 03/16/21 04:05 09:53 09:53 WBC 17.9 H RBC 2.51 L Hgb 7.8 L Hct 23.1 L MCV RDW Plt Count 96 L 114 L Lymph % (Auto) [place] % (Auto) Lymph # (Auto) [place] # (Auto) Seg Neutrophils % Seg Neuts % (Manual) Lymphocytes % (Manual) Seg Neutrophils # Seg Neutrophils # Man Lymphocytes # (Manual) APTT D-Dimer ABG pH POC ABG pCO2 POC ABG pO2 ABG pO2 ABG HCO3 ABG O2 Saturation ABG Base Excess ABG Hemoglobin ABG Oxyhemoglobin ABG Sodium ABG Potassium ABG Chloride ABG Glucose Carboxyhemoglobin Sodium Potassium Chloride Carbon Dioxide 42 H* BUN 30 H Creatinine Glucose 220 H POC Glucose Lactic Acid Calcium 7.4 L Phosphorus Magnesium Ferritin Direct Bilirubin AST ALT Ammonia Lactate Dehydrogenase Total Creatine Kinase CK-MB (CK-2) CK-MB (CK-2) Rel Index Troponin T C-Reactive Protein Total Protein Albumin Prealbumin Triglycerides HDL Cholesterol Arterial Blood Glucose Arterial Blood Ionized Calcium Acetaminophen Crossmatch 03/16/21 03/16/21 03/16/21 11:36 11:39 21:59 WBC RBC Hgb Hct MCV RDW Plt Count Lymph % (Auto) [place] % (Auto) Lymph # (Auto) [place] # (Auto) Seg Neutrophils % Seg Neuts % (Manual) Lymphocytes % (Manual) Seg Neutrophils # Seg Neutrophils # Man Lymphocytes # (Manual) APTT D-Dimer ABG pH POC ABG pCO2 88.2 H POC ABG pO2 50.2 L ABG pO2 ABG HCO3 ABG O2 Saturation ABG Base Excess ABG Hemoglobin 8.1 L ABG Oxyhemoglobin 80.2 L ABG Sodium 135.4 L ABG Potassium ABG Chloride 97.0 L ABG Glucose 98 H Carboxyhemoglobin Sodium Potassium Chloride Carbon Dioxide BUN Creatinine Glucose POC Glucose 58 L 210 H Lactic Acid Calcium Phosphorus Magnesium Ferritin Direct Bilirubin AST ALT Ammonia Lactate Dehydrogenase Total Creatine Kinase CK-MB (CK-2) CK-MB (CK-2) Rel Index Troponin T C-Reactive Protein Total Protein Albumin Prealbumin Triglycerides HDL Cholesterol Arterial Blood Glucose 98 H Arterial Blood Ionized Calcium 4.0 L Acetaminophen Crossmatch 03/17/21 03/17/21 03/17/21 00:13 00:35 00:55 WBC RBC Hgb Hct MCV RDW Plt Count Lymph % (Auto) [place] % (Auto) Lymph # (Auto) [place] # (Auto) Seg Neutrophils % Seg Neuts % (Manual) Lymphocytes % (Manual) Seg Neutrophils # Seg Neutrophils # Man Lymphocytes # (Manual) APTT D-Dimer ABG pH POC ABG pCO2 69.0 H POC ABG pO2 ABG pO2 ABG HCO3 ABG O2 Saturation ABG Base Excess ABG Hemoglobin 7.2 L ABG Oxyhemoglobin ABG Sodium 135.0 L ABG Potassium ABG Chloride ABG Glucose 110 H Carboxyhemoglobin Sodium Potassium Chloride Carbon Dioxide BUN Creatinine Glucose POC Glucose 119 H Lactic Acid Calcium Phosphorus Magnesium Ferritin Direct Bilirubin 0.3 H AST 229 H ALT 426 H Ammonia Lactate Dehydrogenase Total Creatine Kinase CK-MB (CK-2) CK-MB (CK-2) Rel Index Troponin T C-Reactive Protein Total Protein 4.6 L Albumin 2.5 L Prealbumin Triglycerides HDL Cholesterol Arterial Blood Glucose 110 H Arterial Blood Ionized Calcium 4.0 L Acetaminophen Crossmatch 03/17/21 03/17/21 03/17/21 00:55 06:30 06:30 WBC 25.9 H RBC 2.16 L Hgb 6.7 L Hct 20.0 L MCV RDW Plt Count 124 L Lymph % (Auto) [place] % (Auto) Lymph # (Auto) [place] # (Auto) Seg Neutrophils % Seg Neuts % (Manual) 98.0 H Lymphocytes % (Manual) 2.0 L Seg Neutrophils # Seg Neutrophils # Man 25.4 H Lymphocytes # (Manual) 0.5 L APTT 44.5 H D-Dimer ABG pH POC ABG pCO2 POC ABG pO2 ABG pO2 ABG HCO3 ABG O2 Saturation ABG Base Excess ABG Hemoglobin ABG Oxyhemoglobin ABG Sodium ABG Potassium ABG Chloride ABG Glucose Carboxyhemoglobin Sodium Potassium Chloride Carbon Dioxide 42 H* BUN 30 H Creatinine Glucose 171 H POC Glucose Lactic Acid Calcium 7.5 L Phosphorus Magnesium Ferritin Direct Bilirubin AST ALT Ammonia Lactate Dehydrogenase Total Creatine Kinase CK-MB (CK-2) CK-MB (CK-2) Rel Index Troponin T C-Reactive Protein Total Protein Albumin Prealbumin Triglycerides HDL Cholesterol Arterial Blood Glucose Arterial Blood Ionized Calcium Acetaminophen Crossmatch 03/17/21 03/17/21 03/17/21 09:20 10:13 11:57 WBC RBC Hgb Hct MCV RDW Plt Count Lymph % (Auto) [place] % (Auto) Lymph # (Auto) [place] # (Auto) Seg Neutrophils % Seg Neuts % (Manual) Lymphocytes % (Manual) Seg Neutrophils # Seg Neutrophils # Man Lymphocytes # (Manual) APTT 63.2 H* D-Dimer ABG pH POC ABG pCO2 POC ABG pO2 ABG pO2 ABG HCO3 ABG O2 Saturation ABG Base Excess ABG Hemoglobin ABG Oxyhemoglobin ABG Sodium ABG Potassium ABG Chloride ABG Glucose Carboxyhemoglobin Sodium Potassium Chloride Carbon Dioxide BUN Creatinine Glucose POC Glucose 48 L Lactic Acid Calcium Phosphorus Magnesium Ferritin Direct Bilirubin AST ALT Ammonia Lactate Dehydrogenase Total Creatine Kinase CK-MB (CK-2) CK-MB (CK-2) Rel Index Troponin T C-Reactive Protein Total Protein Albumin Prealbumin Triglycerides HDL Cholesterol Arterial Blood Glucose Arterial Blood Ionized Calcium Acetaminophen Crossmatch See Detail 03/17/21 03/17/21 03/17/21 12:01 17:09 18:23 WBC RBC Hgb Hct MCV RDW Plt Count Lymph % (Auto) [place] % (Auto) Lymph # (Auto) [place] # (Auto) Seg Neutrophils % Seg Neuts % (Manual) Lymphocytes % (Manual) Seg Neutrophils # Seg Neutrophils # Man Lymphocytes # (Manual) APTT D-Dimer ABG pH POC ABG pCO2 POC ABG pO2 ABG pO2 ABG HCO3 ABG O2 Saturation ABG Base Excess ABG Hemoglobin ABG Oxyhemoglobin ABG Sodium ABG Potassium ABG Chloride ABG Glucose Carboxyhemoglobin Sodium Potassium Chloride Carbon Dioxide BUN Creatinine Glucose POC Glucose 159 H 68 L 60 L Lactic Acid Calcium Phosphorus Magnesium Ferritin Direct Bilirubin AST ALT Ammonia Lactate Dehydrogenase Total Creatine Kinase CK-MB (CK-2) CK-MB (CK-2) Rel Index Troponin T C-Reactive Protein Total Protein Albumin Prealbumin Triglycerides HDL Cholesterol Arterial Blood Glucose Arterial Blood Ionized Calcium Acetaminophen Crossmatch 03/17/21 03/18/21 03/18/21 18:26 05:00 05:00 WBC 35.7 H RBC 2.59 L Hgb 7.9 L Hct 23.3 L MCV RDW 16.6 H Plt Count 79 L Lymph % (Auto) [place] % (Auto) Lymph # (Auto) [place] # (Auto) Seg Neutrophils % Seg Neuts % (Manual) 93.0 H Lymphocytes % (Manual) Seg Neutrophils # Seg Neutrophils # Man 33.2 H Lymphocytes # (Manual) 0.0 L APTT D-Dimer ABG pH POC ABG pCO2 POC ABG pO2 ABG pO2 ABG HCO3 ABG O2 Saturation ABG Base Excess ABG Hemoglobin ABG Oxyhemoglobin ABG Sodium ABG Potassium ABG Chloride ABG Glucose Carboxyhemoglobin Sodium Potassium Chloride 97.0 L Carbon Dioxide 44 H* BUN 27 H Creatinine Glucose 119 H POC Glucose 60 L Lactic Acid Calcium 7.3 L Phosphorus 1.90 L Magnesium 1.60 L Ferritin Direct Bilirubin 0.3 H AST 228 H ALT 406 H Ammonia Lactate Dehydrogenase Total Creatine Kinase CK-MB (CK-2) CK-MB (CK-2) Rel Index Troponin T C-Reactive Protein Total Protein 4.8 L Albumin 2.4 L Prealbumin Triglycerides HDL Cholesterol Arterial Blood Glucose Arterial Blood Ionized Calcium Acetaminophen Crossmatch 03/18/21 03/18/21 03/18/21 10:25 10:25 12:04 WBC RBC Hgb 7.8 L Hct 23.3 L MCV RDW Plt Count Lymph % (Auto) [place] % (Auto) Lymph # (Auto) [place] # (Auto) Seg Neutrophils % Seg Neuts % (Manual) Lymphocytes % (Manual) Seg Neutrophils # Seg Neutrophils # Man Lymphocytes # (Manual) APTT 49.2 H D-Dimer ABG pH POC ABG pCO2 POC ABG pO2 ABG pO2 ABG HCO3 ABG O2 Saturation ABG Base Excess ABG Hemoglobin ABG Oxyhemoglobin ABG Sodium ABG Potassium ABG Chloride ABG Glucose Carboxyhemoglobin Sodium Potassium Chloride Carbon Dioxide BUN Creatinine Glucose POC Glucose 143 H Lactic Acid Calcium Phosphorus Magnesium Ferritin Direct Bilirubin AST ALT Ammonia Lactate Dehydrogenase Total Creatine Kinase CK-MB (CK-2) CK-MB (CK-2) Rel Index Troponin T C-Reactive Protein Total Protein Albumin Prealbumin Triglycerides HDL Cholesterol Arterial Blood Glucose Arterial Blood Ionized Calcium Acetaminophen Crossmatch 03/18/21 03/18/21 03/18/21 17:28 21:15 21:41 WBC RBC Hgb Hct MCV RDW Plt Count Lymph % (Auto) [place] % (Auto) Lymph # (Auto) [place] # (Auto) Seg Neutrophils % Seg Neuts % (Manual) Lymphocytes % (Manual) Seg Neutrophils # Seg Neutrophils # Man Lymphocytes # (Manual) APTT D-Dimer ABG pH POC ABG pCO2 POC ABG pO2 ABG pO2 ABG HCO3 ABG O2 Saturation ABG Base Excess ABG Hemoglobin ABG Oxyhemoglobin ABG Sodium ABG Potassium ABG Chloride ABG Glucose Carboxyhemoglobin Sodium Potassium Chloride Carbon Dioxide BUN Creatinine Glucose POC Glucose 172 H 37 L 110 H Lactic Acid Calcium Phosphorus Magnesium Ferritin Direct Bilirubin AST ALT Ammonia Lactate Dehydrogenase Total Creatine Kinase CK-MB (CK-2) CK-MB (CK-2) Rel Index Troponin T C-Reactive Protein Total Protein Albumin Prealbumin Triglycerides HDL Cholesterol Arterial Blood Glucose Arterial Blood Ionized Calcium Acetaminophen Crossmatch 03/19/21 03/19/21 03/19/21 00:17 00:17 04:22 WBC RBC Hgb 8.0 L Hct 24.3 L MCV RDW Plt Count Lymph % (Auto) [place] % (Auto) Lymph # (Auto) [place] # (Auto) Seg Neutrophils % Seg Neuts % (Manual) Lymphocytes % (Manual) Seg Neutrophils # Seg Neutrophils # Man Lymphocytes # (Manual) APTT 67.9 H* D-Dimer ABG pH POC ABG pCO2 POC ABG pO2 ABG pO2 ABG HCO3 ABG O2 Saturation ABG Base Excess ABG Hemoglobin ABG Oxyhemoglobin ABG Sodium ABG Potassium ABG Chloride ABG Glucose Carboxyhemoglobin Sodium Potassium Chloride Carbon Dioxide BUN Creatinine Glucose POC Glucose 107 H Lactic Acid Calcium Phosphorus Magnesium Ferritin Direct Bilirubin AST ALT Ammonia Lactate Dehydrogenase Total Creatine Kinase CK-MB (CK-2) CK-MB (CK-2) Rel Index Troponin T C-Reactive Protein Total Protein Albumin Prealbumin Triglycerides HDL Cholesterol Arterial Blood Glucose Arterial Blood Ionized Calcium Acetaminophen Crossmatch 03/19/21 03/19/21 03/19/21 08:39 09:53 09:53 WBC 32.3 H RBC 2.59 L Hgb 7.7 L Hct 23.4 L MCV RDW 16.8 H Plt Count 71 L Lymph % (Auto) [place] % (Auto) Lymph # (Auto) [place] # (Auto) Seg Neutrophils % Seg Neuts % (Manual) Lymphocytes % (Manual) Seg Neutrophils # Seg Neutrophils # Man Lymphocytes # (Manual) APTT 71.1 H* D-Dimer ABG pH POC ABG pCO2 POC ABG pO2 ABG pO2 ABG HCO3 ABG O2 Saturation ABG Base Excess ABG Hemoglobin ABG Oxyhemoglobin ABG Sodium ABG Potassium ABG Chloride ABG Glucose Carboxyhemoglobin Sodium Potassium Chloride Carbon Dioxide BUN Creatinine Glucose POC Glucose 120 H Lactic Acid Calcium Phosphorus Magnesium Ferritin Direct Bilirubin AST ALT Ammonia Lactate Dehydrogenase Total Creatine Kinase CK-MB (CK-2) CK-MB (CK-2) Rel Index Troponin T C-Reactive Protein Total Protein Albumin Prealbumin Triglycerides HDL Cholesterol Arterial Blood Glucose Arterial Blood Ionized Calcium Acetaminophen Crossmatch 03/19/21 03/19/21 03/19/21 09:53 11:45 15:38 WBC RBC Hgb Hct MCV RDW Plt Count Lymph % (Auto) [place] % (Auto) Lymph # (Auto) [place] # (Auto) Seg Neutrophils % Seg Neuts % (Manual) Lymphocytes % (Manual) Seg Neutrophils # Seg Neutrophils # Man Lymphocytes # (Manual) APTT D-Dimer ABG pH POC ABG pCO2 POC ABG pO2 ABG pO2 ABG HCO3 ABG O2 Saturation ABG Base Excess ABG Hemoglobin ABG Oxyhemoglobin ABG Sodium ABG Potassium ABG Chloride ABG Glucose Carboxyhemoglobin Sodium Potassium 3.3 L Chloride 93.9 L Carbon Dioxide 44 H* BUN 21 H Creatinine Glucose 220 H POC Glucose 207 H 184 H Lactic Acid Calcium 7.7 L Phosphorus Magnesium Ferritin Direct Bilirubin AST ALT Ammonia Lactate Dehydrogenase Total Creatine Kinase CK-MB (CK-2) CK-MB (CK-2) Rel Index Troponin T C-Reactive Protein Total Protein Albumin Prealbumin Triglycerides HDL Cholesterol Arterial Blood Glucose Arterial Blood Ionized Calcium Acetaminophen Crossmatch 03/19/21 03/19/21 03/19/21 15:50 20:58 21:00 WBC RBC Hgb 7.4 L Hct 22.3 L MCV RDW Plt Count 60 L Lymph % (Auto) [place] % (Auto) Lymph # (Auto) [place] # (Auto) Seg Neutrophils % Seg Neuts % (Manual) Lymphocytes % (Manual) Seg Neutrophils # Seg Neutrophils # Man Lymphocytes # (Manual) APTT 80.5 H* D-Dimer ABG pH POC ABG pCO2 POC ABG pO2 ABG pO2 ABG HCO3 ABG O2 Saturation ABG Base Excess ABG Hemoglobin ABG Oxyhemoglobin ABG Sodium ABG Potassium ABG Chloride ABG Glucose Carboxyhemoglobin Sodium Potassium Chloride Carbon Dioxide BUN Creatinine Glucose POC Glucose 191 H Lactic Acid Calcium Phosphorus Magnesium Ferritin Direct Bilirubin AST ALT Ammonia Lactate Dehydrogenase Total Creatine Kinase CK-MB (CK-2) CK-MB (CK-2) Rel Index Troponin T C-Reactive Protein Total Protein Albumin Prealbumin Triglycerides HDL Cholesterol Arterial Blood Glucose Arterial Blood Ionized Calcium Acetaminophen Crossmatch 03/20/21 03/20/21 03/20/21 00:25 04:47 04:47 WBC 29.6 H RBC 2.26 L Hgb 6.9 L Hct 20.3 L MCV RDW 15.6 H Plt Count 51 L Lymph % (Auto) [place] % (Auto) Lymph # (Auto) [place] # (Auto) Seg Neutrophils % Seg Neuts % (Manual) Lymphocytes % (Manual) Seg Neutrophils # Seg Neutrophils # Man Lymphocytes # (Manual) APTT D-Dimer ABG pH POC ABG pCO2 POC ABG pO2 ABG pO2 ABG HCO3 ABG O2 Saturation ABG Base Excess ABG Hemoglobin ABG Oxyhemoglobin ABG Sodium ABG Potassium ABG Chloride ABG Glucose Carboxyhemoglobin Sodium Potassium 3.3 L Chloride 92.4 L Carbon Dioxide 47 H* BUN 23 H Creatinine Glucose 154 H POC Glucose 139 H Lactic Acid Calcium 7.6 L Phosphorus Magnesium Ferritin Direct Bilirubin AST ALT Ammonia Lactate Dehydrogenase Total Creatine Kinase CK-MB (CK-2) CK-MB (CK-2) Rel Index Troponin T C-Reactive Protein Total Protein Albumin Prealbumin Triglycerides HDL Cholesterol Arterial Blood Glucose Arterial Blood Ionized Calcium Acetaminophen Crossmatch 03/20/21 03/20/21 03/20/21 04:47 05:47 10:54 WBC RBC Hgb Hct MCV RDW Plt Count Lymph % (Auto) [place] % (Auto) Lymph # (Auto) [place] # (Auto) Seg Neutrophils % Seg Neuts % (Manual) Lymphocytes % (Manual) Seg Neutrophils # Seg Neutrophils # Man Lymphocytes # (Manual) APTT 105.0 H* D-Dimer ABG pH POC ABG pCO2 POC ABG pO2 ABG pO2 ABG HCO3 ABG O2 Saturation ABG Base Excess ABG Hemoglobin ABG Oxyhemoglobin ABG Sodium ABG Potassium ABG Chloride ABG Glucose Carboxyhemoglobin Sodium Potassium Chloride Carbon Dioxide BUN Creatinine Glucose POC Glucose 166 H Lactic Acid Calcium Phosphorus Magnesium Ferritin Direct Bilirubin AST ALT Ammonia Lactate Dehydrogenase Total Creatine Kinase CK-MB (CK-2) CK-MB (CK-2) Rel Index Troponin T C-Reactive Protein Total Protein Albumin Prealbumin Triglycerides HDL Cholesterol Arterial Blood Glucose Arterial Blood Ionized Calcium Acetaminophen Crossmatch See Detail 03/20/21 03/20/21 03/20/21 11:59 13:22 17:04 WBC RBC Hgb Hct MCV RDW Plt Count Lymph % (Auto) [place] % (Auto) Lymph # (Auto) [place] # (Auto) Seg Neutrophils % Seg Neuts % (Manual) Lymphocytes % (Manual) Seg Neutrophils # Seg Neutrophils # Man Lymphocytes # (Manual) APTT 67.9 H* D-Dimer ABG pH POC ABG pCO2 POC ABG pO2 ABG pO2 ABG HCO3 ABG O2 Saturation ABG Base Excess ABG Hemoglobin ABG Oxyhemoglobin ABG Sodium ABG Potassium ABG Chloride ABG Glucose Carboxyhemoglobin Sodium Potassium Chloride Carbon Dioxide BUN Creatinine Glucose POC Glucose 203 H 138 H Lactic Acid Calcium Phosphorus Magnesium Ferritin Direct Bilirubin AST ALT Ammonia Lactate Dehydrogenase Total Creatine Kinase CK-MB (CK-2) CK-MB (CK-2) Rel Index Troponin T C-Reactive Protein Total Protein Albumin Prealbumin Triglycerides HDL Cholesterol Arterial Blood Glucose Arterial Blood Ionized Calcium Acetaminophen Crossmatch 03/20/21 03/20/21 03/20/21 19:50 21:40 21:40 WBC RBC Hgb 8.9 L Hct 26.1 L MCV RDW Plt Count Lymph % (Auto) [place] % (Auto) Lymph # (Auto) [place] # (Auto) Seg Neutrophils % Seg Neuts % (Manual) Lymphocytes % (Manual) Seg Neutrophils # Seg Neutrophils # Man Lymphocytes # (Manual) APTT 72.7 H* D-Dimer ABG pH POC ABG pCO2 POC ABG pO2 ABG pO2 ABG HCO3 ABG O2 Saturation ABG Base Excess ABG Hemoglobin ABG Oxyhemoglobin ABG Sodium ABG Potassium ABG Chloride ABG Glucose Carboxyhemoglobin Sodium Potassium Chloride Carbon Dioxide BUN Creatinine Glucose POC Glucose 142 H Lactic Acid Calcium Phosphorus Magnesium Ferritin Direct Bilirubin AST ALT Ammonia Lactate Dehydrogenase Total Creatine Kinase CK-MB (CK-2) CK-MB (CK-2) Rel Index Troponin T C-Reactive Protein Total Protein Albumin Prealbumin Triglycerides HDL Cholesterol Arterial Blood Glucose Arterial Blood Ionized Calcium Acetaminophen Crossmatch 03/20/21 23:39 WBC RBC Hgb Hct MCV RDW Plt Count Lymph % (Auto) [place] % (Auto) Lymph # (Auto) [place] # (Auto) Seg Neutrophils % Seg Neuts % (Manual) Lymphocytes % (Manual) Seg Neutrophils # Seg Neutrophils # Man Lymphocytes # (Manual) APTT D-Dimer ABG pH POC ABG pCO2 POC ABG pO2 ABG pO2 ABG HCO3 ABG O2 Saturation ABG Base Excess ABG Hemoglobin ABG Oxyhemoglobin ABG Sodium ABG Potassium ABG Chloride ABG Glucose Carboxyhemoglobin Sodium Potassium Chloride Carbon Dioxide BUN Creatinine Glucose POC Glucose 135 H Lactic Acid Calcium Phosphorus Magnesium Ferritin Direct Bilirubin AST ALT Ammonia Lactate Dehydrogenase Total Creatine Kinase CK-MB (CK-2) CK-MB (CK-2) Rel Index Troponin T C-Reactive Protein Total Protein Albumin Prealbumin Triglycerides HDL Cholesterol Arterial Blood Glucose Arterial Blood Ionized Calcium Acetaminophen Crossmatch
--- NOTE | 2021-03-21 04:04 | Hem/Onc Progress Note ---
Subjective Interval history: in -person follow-up eval CPT 34304 dx: heparin-induced thrombocytopenia 65yo man from [facility] with STEMI-->cath-->R foot ischemia--> IV heparin confusion, retroperitoneal hematoma and GI tract bleeding argatroban 03/16-->stopped 03/17-->resumed RBC transfusion 03/17/21 generally improved on argatroban, speaking better, R foot less cool no overt bleeding, but Hgb found to be low EXAM: Right foot with black toe tips, but not freezing, not so tender DATA REVIEWED BELOW AST 228 /ALT 406 IMP HIT is less likely now because plt count did not increase on argatroban low plt count due to meds or "acute ITP" elevated liver enzymes, presumed to be acute hepatic injury risk>benefit for "full dose" anticoag, because he has needed RBC transfusions r/o hemoglobinopathy REC: change to arixtra 2.5mg daily while in hospital repeat PF4 Ab testing once labs to include Hgb electrophoresis RBC transfusions for severe anemia steroid taper Active Medications Acetaminophen (Acetaminophen 325 Mg Tab) 650 mg PO Q4H PRN PRN Reason: Pain MILD(1-3)/Fever >100.5/MYERS Hydrocodone Bitart/Acetaminophen (Hydrocodone/Acetaminophen 5-325 Mg Tab) 1 each PO Q6H PRN PRN Reason: Pain, Moderate (4-6) Albuterol (Albuterol 2.5 Mg/3 Ml Nebu) 2.5 mg IH Q4HRT PRN PRN Reason: Shortness Of Breath Last Admin: 03/19/21 05:28 Dose: 2.5 mg Documented by: Lipase/Protease/Amylase (Lipase 10,500/Protease 25,000/Amylase 43,750 (Units) Dr Johnson) 1 each FEEDTUBE PRN PRN PRN Reason: For Clogged Feeding Tube Arformoterol Tartrate (Arformoterol 15 Mcg/2 Ml Nebu) 15 mcg IH Q12HRT [facility] Last Admin: 03/20/21 23:10 Dose: 15 mcg Documented by: Aspirin (Aspirin 81 Mg Tab Chew) 81 mg PO QDAY [facility] Last Admin: 03/20/21 09:19 Dose: 81 mg Docmented by: Clopidogrel Bisulfate (Clopidogrel 75 Mg Tab) 75 mg PO QDAY [facility] Last Admin: 03/20/21 09:19 Dose: 75 mg Documented by: Methylprednisolone Sodium Succinate (Methylprednisolone Sod Succinate 40 Mg/1 Ml Inj) 40 mg IV Q24HR [facility]ESS Last Admin: 03/20/21 09:20 Dose: 40 mg Documented by: Laboratory Last Values WBC 29.6 K/mm3 (4.5-11.0) H 03/20/21 04:47 Hgb 8.9 gm/dl (11.8-15.2) L 03/20/21 21:40 Hct 26.1 % (35.5-45.6) L 03/20/21 21:40 Plt Count 51 K/mm3 (140-440) L 03/20/21 04:47 PT 14.6 Sec. (12.2-14.9) 03/11/21 21:50 INR 1.09 (0.87-1.13) 03/11/21 21:50 APTT 72.7 Sec. (24.2-36.6) H* 03/20/21 21:40 D-Dimer 832.06 ng/mlDDU (0-234) H 03/08/21 15:49 Antibody Screen Negative 03/20/21 10:54 Crossmatch See Detail 03/20/21 10:54 Objective - Constitutional Vitals: Last Vital Signs Temp 99.2 F 03/21/21 00:00 Pulse 77 03/21/21 03:00 Resp 16 03/21/21 03:00 BP 108/51 03/21/21 03:00 Pulse Ox 100 03/21/21 03:00 - Labs Lab Results: Laboratory Results - last 24 hr 03/17/21 03/17/21 03/20/21 06:30 09:20 04:47 WBC 29.6 H RBC 2.26 L Hgb 6.9 L Hct 20.3 L MCV 90 MCH 30 MCHC 34 RDW 15.6 H Plt Count 51 L APTT Heparin Anti-Xa, Unfract Negative Sodium Potassium Chloride Carbon Dioxide Anion Gap BUN Creatinine Estimated GFR BUN/Creatinine Ratio Glucose POC Glucose Calcium Phosphorus Magnesium Heparin-induced Plt Ab Negative UF Heparin High Dose 3 MARGARITA UFH Low Dose 0.1 0 MARGARITA UFH Low Dose 0.5 0 Blood Type B POSITIVE Antibody Screen Negative Crossmatch See Detail 03/20/21 03/20/21 03/20/21 04:47 04:47 04:47 WBC RBC Hgb Hct MCV MCH MCHC RDW Plt Count APTT 105.0 H* Heparin Anti-Xa, Unfract Sodium 139 Potassium 3.3 L Chloride 92.4 L Carbon Dioxide 47 H* Anion Gap 3 BUN 23 H Creatinine 0.8 Estimated GFR > 60 BUN/Creatinine Ratio 29 Glucose 154 H POC Glucose Calcium 7.6 L Phosphorus 2.60 Magnesium 1.70 Heparin-induced Plt Ab UF Heparin High Dose MARGARITA UFH Low Dose 0.1 MARGARITA UFH Low Dose 0.5 Blood Type Antibody Screen Crossmatch 03/20/21 03/20/21 03/20/21 05:47 10:54 11:59 WBC RBC Hgb Hct MCV MCH MCHC RDW Plt Count APTT Heparin Anti-Xa, Unfract Sodium Potassium Chloride Carbon Dioxide Anion Gap BUN Creatinine Estimated GFR BUN/Creatinine Ratio Glucose POC Glucose 166 H 203 H Calcium Phosphorus Magnesium Heparin-induced Plt Ab UF Heparin High Dose MARGARITA UFH Low Dose 0.1 MARGARITA UFH Low Dose 0.5 Blood Type B POSITIVE Antibody Screen Negative Crossmatch See Detail 03/20/21 03/20/21 03/20/21 13:22 17:04 19:50 WBC RBC Hgb Hct MCV MCH MCHC RDW Plt Count APTT 67.9 H* Heparin Anti-Xa, Unfract Sodium Potassium Chloride Carbon Dioxide Anion Gap BUN Creatinine Estimated GFR BUN/Creatinine Ratio Glucose POC Glucose 138 H 142 H Calcium Phosphorus Magnesium Heparin-induced Plt Ab UF Heparin High Dose MARGARITA UFH Low Dose 0.1 MARGARITA UFH Low Dose 0.5 Blood Type Antibody Screen Crossmatch 03/20/21 03/20/21 03/20/21 21:40 21:40 23:39 WBC RBC Hgb 8.9 L Hct 26.1 L MCV MCH MCHC RDW Plt Count APTT 72.7 H* Heparin Anti-Xa, Unfract Sodium Potassium Chloride Carbon Dioxide Anion Gap BUN Creatinine Estimated GFR BUN/Creatinine Ratio Glucose POC Glucose 135 H Calcium Phosphorus Magnesium Heparin-induced Plt Ab UF Heparin High Dose MARGARITA UFH Low Dose 0.1 MARGARITA UFH Low Dose 0.5 Blood Type Antibody Screen Crossmatch Medications & Allergies - Medications Allergies/Adverse Reactions: Allergies Unable to Assess Allergy (Verified 03/08/21 14:37) AMS Active Medications: Generic Name Dose Route Start Last Admin Trade Name Freq PRN Reason Stop Dose Admin Acetaminophen 650 mg 03/08/21 21:36 Acetaminophen 325 Mg Tab PO Q4H PRN Pain MILD(1-3)/Fever >100.5/MYERS Hydrocodone Bitart/Acetaminophen 1 each 03/11/21 13:59 Hydrocodone/Acetaminophen 5-325 Mg Tab PO Q6H PRN Pain, Moderate (4-6) Albuterol 2.5 mg 03/15/21 19:28 03/19/21 05:28 Albuterol 2.5 Mg/3 Ml Nebu IH 2.5 mg Q4HRT PRN Administration Shortness Of Breath Lipase/Protease/Amylase 1 each 03/08/21 21:42 Lipase 10,500/Protease 25,000/Amylase 43,750 (Units) Dr Johnson FEEDTUBE PRN PRN For Clogged Feeding Tube Arformoterol Tartrate 15 mcg 03/10/21 20:00 03/20/21 23:10 Arformoterol 15 Mcg/2 Ml Nebu IH 15 mcg Q12HRT [facility] Administration Aspirin 81 mg 03/10/21 15:00 03/20/21 09:19 Aspirin 81 Mg Tab Chew PO 81 mg QDAY [facility]ESS Administration Atorvastatin Calcium 40 mg 03/11/21 22:00 03/20/21 22:52 Atorvastatin 40 Mg Tab PO 40 mg QHS [facility]ESS Administration Budesonide 0.5 mg 03/09/21 20:00 03/20/21 23:10 Budesonide 0.5 Mg/2 Ml Nebu IH 0.5 mg Q12HRT [facility] Administration Clopidogrel Bisulfate 75 mg 03/12/21 10:00 03/20/21 09:19 Clopidogrel 75 Mg Tab PO 75 mg QDAY [facility]ESS Administration Dextrose 50 ml 03/17/21 20:20 Dextrose 50% In Water (25gm) 50 Ml Syringe IV Q30MIN PRN Hypoglycemia Protocol Fondaparinux 2.5 mg 03/21/21 10:00 Fondaparinux 2.5 Mg/0.5 Ml Inj SUB-Q QDAY [facility] Haloperidol Lactate 5 mg 03/13/21 11:15 03/20/21 22:52 Haloperidol Lactate 5 Mg/1 Ml Inj IV 5 mg Q6H PRN Administration Agitation Sodium Chloride 500 mls @ 0 mls/hr 03/20/21 15:44 Nacl 0.9% 500 Ml IV ONCE PRINCESS As Directed Insulin Human Lispro 0 unit 03/10/21 12:00 03/21/21 01:00 Insulin Lispro 100 Unit/Ml SUB-Q Not Given Q6HR [facility] Protocol Lorazepam 2 mg 03/21/21 00:00 03/21/21 02:19 Lorazepam 2 Mg/Ml Vial IV 2 mg Q4HR PRN Administration Agitation Methylprednisolone Sodium Succinate 40 mg 03/18/21 12:00 03/20/21 09:20 Methylprednisolone Sod Succinate 40 Mg/1 Ml Inj IV 40 mg Q24HR [facility] Administration Metoclopramide HCl 10 mg 03/08/21 21:36 Metoclopramide 10 Mg/2 Ml Inj IV Q6H PRN Nausea And Vomiting Metoprolol Tartrate 5 mg 03/17/21 16:00 03/20/21 22:52 Metoprolol Tartrate 5 Mg/5 Ml Inj IV Not Given Q6H [facility] Morphine Sulfate 1 mg 03/14/21 17:07 03/16/21 09:35 Morphine 2 Mg/1 Ml Inj IV 1 mg Q4H PRN Administration Pain, Moderate (4-6) Nitroglycerin 0.4 mg 03/16/21 06:00 03/20/21 06:37 Nitroglycerin 0.4 Mg Patch 24hr TD 0.4 mg QDAY@0600 [facility] Administration Ondansetron HCl 4 mg 03/08/21 21:36 Ondansetron 4 Mg/2 Ml Inj IV Q3H PRN Nausea And Vomiting Pantoprazole Sodium 40 mg 03/13/21 13:00 03/20/21 22:51 Pantoprazole 40 Mg Inj IV 40 mg BID PRINCESS Administration Simple Syrup 15 ml 03/08/21 21:42 Simple Syrup 15 Ml FEEDTUBE PRN PRN Hypoglycemia Simple Syrup 30 ml 03/08/21 21:42 Simple Syrup 15 Ml FEEDTUBE PRN PRN Hypoglycemia Sodium Bicarbonate 325 mg 03/08/21 21:42 Sodium Bicarbonate 325 Mg Tab FEEDTUBE PRN PRN For Clogged Feeding Tube Sodium Chloride 10 ml 03/08/21 22:00 03/20/21 22:52 Sodium Chloride 0.9% 10 Ml Flush Syringe IV 10 ml BID PRINCESS Administration Sodium Chloride 10 ml 03/08/21 21:36 03/16/21 05:17 Sodium Chloride 0.9% 10 Ml Flush Syringe IV 10 ml PRN PRN Administration LINE FLUSH
[2021-03-21] MEDS: METOPROLOL TARTRATE 5 MG/5 ML INJ IV SCH ×4 (05:00→22:21)
[2021-03-21 05:55] LABS: INR 1.94 (0.87-1.13)
[2021-03-21 06:08] LABS: Alanine Aminotransferase 160 units/L (7-56); Albumin 2.1 g/dL (3.9-5); BUN/Creatinine Ratio 30; Blood Urea Nitrogen 24 mg/dL (9-20); Calcium 7.4 mg/dL (8.4-10.2); Hemolysis Index 4
[2021-03-21] MEDS: NITROGLYCERIN 0.4 MG PATCH 24HR TD SCH (06:37)
[2021-03-21] MEDS: BUDESONIDE 0.5 MG/2 ML NEBU IH SCH ×2 (08:51→22:17)
[2021-03-21] MEDS: ARFORMOTEROL 15 MCG/2 ML NEBU IH SCH ×2 (08:51→22:17)
[2021-03-21] MEDS: methylPREDNISolone Sod Succinate 40 MG/1 ML INJ IV SCH (09:45)
[2021-03-21] MEDS: PANTOPRAZOLE 40 MG INJ IV SCH ×2 (09:45→22:18)
[2021-03-21] MEDS: CLOPIDOGREL 75 MG TAB PO SCH (09:45)
[2021-03-21] MEDS: ASPIRIN 81 MG TAB CHEW PO SCH (09:45)
[2021-03-21] MEDS ORDERED: FONDAPARINUX 2.5 MG/0.5 ML INJ SUB-Q SCH (10:00)
--- NOTE | 2021-03-21 11:56 | Progress Note ---
Assessment and Plan 1. Status post acute ST elevation [place] 2. Status post PCI of the mid LAD using a drug-eluting stent 3. Ischemic cardiomyopathy left ventricular ejection fraction 35 to 40% 4. Chronic obstructive pulmonary disease 5. Peripheral vascular disease. 6. Anemia Plan. Continue present medication follow hemoglobin and hematocrit. Subjective Date of service: 03/21/21 Principal diagnosis: Respiratory distress, [place] Interval history: No cardiac symptoms. Objective Vital Signs Temp Pulse Pulse Resp Resp BP Pulse Ox 03/21/21 11:01 75 13 112/42 100 03/21/21 10:31 73 13 142/48 100 03/21/21 10:01 78 13 142/48 100 03/21/21 09:37 100 03/21/21 09:31 77 15 130/59 97 03/21/21 09:01 76 12 130/59 99 03/21/21 08:51 74 79 19 18 114/88 100 03/21/21 08:31 73 14 114/88 100 03/21/21 08:00 92 H 14 114/88 100 03/21/21 07:31 73 13 110/50 100 03/21/21 07:00 73 13 110/50 100 03/21/21 06:37 72 114/52 03/21/21 06:31 72 14 114/52 100 03/21/21 06:00 77 14 114/52 100 03/21/21 05:31 75 14 114/45 99 03/21/21 05:00 74 14 113/47 100 03/21/21 04:32 97.3 F L 03/21/21 04:31 75 14 114/45 100 03/21/21 04:25 76 17 114/45 98 03/21/21 04:00 76 14 114/45 100 03/21/21 03:31 75 15 108/54 100 03/21/21 03:00 77 16 108/51 100 03/21/21 02:30 76 17 108/54 100 03/21/21 02:00 77 14 108/54 100 03/21/21 01:31 80 15 113/43 100 03/21/21 01:00 80 16 113/43 100 03/21/21 00:31 87 13 124/58 99 03/21/21 00:00 99.2 F 86 14 106/46 100 03/20/21 23:31 91 H 19 124/58 99 03/20/21 23:11 103 H 23 03/20/21 23:06 97 H 21 124/58 96 03/20/21 23:00 96 H 18 124/58 100 03/20/21 22:31 98 H 17 129/65 100 03/20/21 22:01 96 H 20 129/65 99 03/20/21 21:31 120 H 24 142/64 97 03/20/21 21:01 19 142/64 100 03/20/21 20:31 88 16 142/82 100 03/20/21 20:01 100 H 18 132/78 100 03/20/21 20:00 99.0 F 94 03/20/21 19:30 87 16 161/63 100 03/20/21 19:00 97 H 23 191/86 100 03/20/21 18:32 91 H 21 166/64 100 03/20/21 18:30 89 17 166/64 100 03/20/21 18:01 88 14 163/64 100 03/20/21 17:31 93 H 24 168/58 73 L 03/20/21 17:00 103 H 23 163/58 03/20/21 16:39 98.6 F 03/20/21 16:31 100 H 22 173/53 87 03/20/21 16:02 99 F 03/20/21 16:01 91 H 16 119/50 95 03/20/21 16:00 88 94 03/20/21 15:30 90 16 135/45 98 03/20/21 15:00 16 138/60 96 03/20/21 14:30 96 H 17 130/82 92 03/20/21 14:00 92 H 18 149/60 91 03/20/21 13:31 97 H 20 148/63 98 03/20/21 13:00 90 17 132/62 93 03/20/21 12:30 89 16 135/49 98 03/20/21 12:01 87 15 122/53 98 03/20/21 12:00 92 H 95 - Physical Examination General: No Apparent Distress HEENT: Positive: PERRL Neck: Positive: neck supple Cardiac: Positive: Regular Rate, S1/S2, S3. Negative: S4 Lungs: Positive: clear to auscultation, No Wheeze, Rales, Rhonchi Neuro: Positive: Grossly Intact, Weakness Abdomen: Positive: Soft Skin: Positive: Clear Extremities: Absent: edema - Labs and Meds Cardiac Enzymes 03/21/21 Range/Units 04:00 AST 58 H (5-40) units/L Coagulation 03/20/21 03/20/21 03/21/21 Range/Units 13:22 21:40 04:00 PT 22.7 H (12.2-14.9) Sec. INR 1.94 H (0.87-1.13) APTT 67.9 H* 72.7 H* (24.2-36.6) Sec. CBC 03/20/21 Range/Units 21:40 Hgb 8.9 L (11.8-15.2) gm/dl Hct 26.1 L (35.5-45.6) % Comprehensive Metabolic Panel 03/21/21 Range/Units 04:00 Sodium 140 (137-145) mmol/L Potassium 3.8 (3.6-5.0) mmol/L Chloride 94.1 L (98-107) mmol/L Carbon Dioxide 45 H* (22-30) mmol/L BUN 24 H (9-20) mg/dL Creatinine 0.8 (0.8-1.3) mg/dL Glucose 116 H (75-100) mg/dL Calcium 7.4 L (8.4-10.2) mg/dL AST 58 H (5-40) units/L ALT 160 H (7-56) units/L Alkaline Phosphatase 50 (35-129) units/L Total Protein 4.6 L (6.3-8.2) g/dL Albumin 2.1 L (3.9-5) g/dL
[2021-03-21 15:18] LABS: Hematocrit 26.7 % (35.5-45.6); Mean Corpuscular HGB Conc 34 % (32-34); Mean Corpuscular Volume 91 fl (84-94); Red Blood Count 2.95 M/mm3 (3.65-5.03); Red Cell Distribution Width 15.9 % (13.2-15.2)
[2021-03-21 15:21] LABS: Platelet Count 44 K/mm3 (140-440)
[2021-03-21 15:57] LABS: Band Neutrophils # (Manual) 0.2 K/mm3; Total Cells Counted 100
[2021-03-21 15:58] LABS: Platelet Estimate Consistent w Auto; Target Cells Few
--- NOTE | 2021-03-21 16:45 | Gastroenterology Progress Note ---
Assessment and Plan 1. Anemia - black stools last week, no overt bleeding last few days. worsening thrombocytopenia ( ? HIT) as well. cont PPI, transfuse as indicated, and will manage conservatively from gi stand point unless signs of further overt bleeding . will follow Subjective Date of service: 03/21/21 Principal diagnosis: Respiratory distress, [place] Interval history: no overt gi bleeding episodes overnight/today so far Objective - Constitutional Vitals: Temp Pulse Resp BP Pulse Ox 97.3 F L 91 H 15 125/56 100 03/21/21 04:32 03/21/21 16:00 03/21/21 16:00 03/21/21 16:00 03/21/21 16:00 General appearance: no acute distress - Respiratory Respiratory effort: normal Respiratory: bilateral: CTA - Cardiovascular Rhythm: regular Heart Sounds: Present: S1 & S2 - Gastrointestinal General gastrointestinal: Present: soft, non-tender, non-distended - Labs CBC & Chem 7: 03/21/21 14:30 03/21/21 04:00 Labs: Laboratory Results - last 24 hr 03/20/21 03/20/21 03/20/21 10:54 17:04 19:50 WBC RBC Hgb Hct MCV MCH MCHC RDW Plt Count Add Manual Diff Total Counted Seg Neutrophils % Band Neutrophils % Lymphocytes % (Manual) Monocytes % (Manual) Nucleated RBC % Seg Neutrophils # Man Band Neutrophils # Lymphocytes # (Manual) Abs React Lymphs (Man) Monocytes # (Manual) Eosinophils # (Manual) Basophils # (Manual) Metamyelocytes # Myelocytes # Promyelocytes # Blast Cells # WBC Morphology Hypersegmented Neuts Hyposegmented Neuts Hypogranular Neuts Smudge Cells Toxic Granulation Toxic Vacuolation Dohle Bodies Pelger-Huet Anomaly Maritza Rods Platelet Estimate Clumped Platelets Plt Clumps, EDTA Large Platelets Giant Platelets Platelet Satelliting Plt Morphology Comment RBC Morphology Dimorphic RBCs Polychromasia Hypochromasia Poikilocytosis Anisocytosis Microcytosis Macrocytosis Spherocytes Pappenheimer Bodies Sickle Cells Target Cells Tear Drop Cells Ovalocytes Helmet Cells Gautam-Collinwood Bodies [place] Rings [place] Cells Bite Cells Crenated Cell Elliptocytes Acanthocytes (Spur) Rouleaux Hemoglobin C Crystals Schistocytes Malaria parasites Timoteo Bodies Hem Pathologist Commnt PT INR APTT Sodium Potassium Chloride Carbon Dioxide Anion Gap BUN Creatinine Estimated GFR BUN/Creatinine Ratio Glucose POC Glucose 138 H 142 H Calcium Total Bilirubin AST ALT Alkaline Phosphatase Total Protein Albumin Albumin/Globulin Ratio Crossmatch See Detail 03/20/21 03/20/21 03/20/21 21:40 21:40 23:39 WBC RBC Hgb 8.9 L Hct 26.1 L MCV MCH MCHC RDW Plt Count Add Manual Diff Total Counted Seg Neutrophils % Band Neutrophils % Lymphocytes % (Manual) Monocytes % (Manual) Nucleated RBC % Seg Neutrophils # Man Band Neutrophils # Lymphocytes # (Manual) Abs React Lymphs (Man) Monocytes # (Manual) Eosinophils # (Manual) Basophils # (Manual) Metamyelocytes # Myelocytes # Promyelocytes # Blast Cells # WBC Morphology Hypersegmented Neuts Hyposegmented Neuts Hypogranular Neuts Smudge Cells Toxic Granulation Toxic Vacuolation Dohle Bodies Pelger-Huet Anomaly Maritza Rods Platelet Estimate Clumped Platelets Plt Clumps, EDTA Large Platelets Giant Platelets Platelet Satelliting Plt Morphology Comment RBC Morphology Dimorphic RBCs Polychromasia Hypochromasia Poikilocytosis Anisocytosis Microcytosis Macrocytosis Spherocytes Pappenheimer Bodies Sickle Cells Target Cells Tear Drop Cells Ovalocytes Helmet Cells Gautam-[place] Bodies [place] Rings [place] Cells Bite Cells Crenated Cell Elliptocytes Acanthocytes (Spur) Rouleaux Hemoglobin C Crystals Schistocytes Malaria parasites Timoteo Bodies Hem Pathologist Commnt PT INR APTT 72.7 H* Sodium Potassium Chloride Carbon Dioxide Anion Gap BUN Creatinine Estimated GFR BUN/Creatinine Ratio Glucose POC Glucose 135 H Calcium Total Bilirubin AST ALT Alkaline Phosphatase Total Protein Albumin Albumin/Globulin Ratio Crossmatch 03/21/21 03/21/21 03/21/21 04:00 04:00 04:10 WBC RBC Hgb Hct MCV MCH MCHC RDW Plt Count Add Manual Diff Total Counted Seg Neutrophils % Band Neutrophils % Lymphocytes % (Manual) Monocytes % (Manual) Nucleated RBC % Seg Neutrophils # Man Band Neutrophils # Lymphocytes # (Manual) Abs React Lymphs (Man) Monocytes # (Manual) Eosinophils # (Manual) Basophils # (Manual) Metamyelocytes # Myelocytes # Promyelocytes # Blast Cells # WBC Morphology Hypersegmented Neuts Hyposegmented Neuts Hypogranular Neuts Smudge Cells Toxic Granulation Toxic Vacuolation Dohle Bodies Pelger-Huet Anomaly Maritza Rods Platelet Estimate Clumped Platelets Plt Clumps, EDTA Large Platelets Giant Platelets Platelet Satelliting Plt Morphology Comment RBC Morphology Dimorphic RBCs Polychromasia Hypochromasia Poikilocytosis Anisocytosis Microcytosis Macrocytosis Spherocytes Pappenheimer Bodies Sickle Cells Target Cells Tear Drop Cells Ovalocytes Helmet Cells Gautam-[place] Bodies [place] Rings [place] Cells Bite Cells Crenated Cell Elliptocytes Acanthocytes (Spur) Rouleaux Hemoglobin C Crystals Schistocytes Malaria parasites Timoteo Bodies Hem Pathologist Commnt PT 22.7 H INR 1.94 H APTT Sodium 140 Potassium 3.8 Chloride 94.1 L Carbon Dioxide 45 H* Anion Gap 5 BUN 24 H Creatinine 0.8 Estimated GFR > 60 BUN/Creatinine Ratio 30 Glucose 116 H POC Glucose 111 H Calcium 7.4 L Total Bilirubin 1.10 AST 58 H ALT 160 H Alkaline Phosphatase 50 Total Protein 4.6 L Albumin 2.1 L Albumin/Globulin Ratio 0.8 Crossmatch 03/21/21 03/21/21 03/21/21 12:25 14:30 14:30 WBC 20.1 H RBC 2.95 L Hgb 9.0 L Hct 26.7 L MCV 91 MCH 31 MCHC 34 RDW 15.9 H Plt Count 44 L Add Manual Diff Complete Total Counted 100 Seg Neutrophils % Washcloth Folder Band Neutrophils % 1.0 Lymphocytes % (Manual) 1.0 L Monocytes % (Manual) 2.0 Nucleated RBC % Not Reportable Seg Neutrophils # Man 19.3 H Band Neutrophils # 0.2 Lymphocytes # (Manual) 0.2 L Abs React Lymphs (Man) 0.0 Monocytes # (Manual) 0.4 Eosinophils # (Manual) 0.0 Basophils # (Manual) 0.0 Metamyelocytes # 0.0 Myelocytes # 0.0 Promyelocytes # 0.0 Blast Cells # 0.0 WBC Morphology Not Reportable TNR Hypersegmented Neuts Not Reportable Hyposegmented Neuts Not Reportable Hypogranular Neuts Not Reportable Smudge Cells Not Reportable Toxic Granulation Not Reportable Toxic Vacuolation Not Reportable Dohle Bodies Not Reportable Pelger-Huet Anomaly Not Reportable Maritza Rods Not Reportable Platelet Estimate Consistent w auto Clumped Platelets Not Reportable Plt Clumps, EDTA Not Reportable Large Platelets Not Reportable Giant Platelets Not Reportable Platelet Satelliting Not Reportable Plt Morphology Comment Not Reportable RBC Morphology Not Reportable Dimorphic RBCs Not Reportable Polychromasia Not Reportable Hypochromasia Not Reportable Poikilocytosis Not Reportable Anisocytosis Not Reportable Microcytosis Not Reportable Macrocytosis Not Reportable Spherocytes Not Reportable Pappenheimer Bodies Not Reportable Sickle Cells Not Reportable Target Cells Few Tear Drop Cells Not Reportable Ovalocytes Not Reportable Helmet Cells Not Reportable Gautam-[place] Bodies Not Reportable [place] Rings Not Reportable [place] Cells Not Reportable Bite Cells Not Reportable Crenated Cell Not Reportable Elliptocytes Not Reportable Acanthocytes (Spur) Not Reportable Rouleaux Not Reportable Hemoglobin C Crystals Not Reportable Schistocytes Not Reportable Malaria parasites Not Reportable Timoteo Bodies Not Reportable Hem Pathologist Commnt No PT INR APTT Sodium Potassium Chloride Carbon Dioxide Anion Gap BUN Creatinine Estimated GFR BUN/Creatinine Ratio Glucose POC Glucose 105 Calcium Total Bilirubin AST ALT Alkaline Phosphatase Total Protein Albumin Albumin/Globulin Ratio Crossmatch
[2021-03-21] MEDS ORDERED: FUROSEMIDE 20 MG/2 ML INJ IV ONE (17:00)
--- NOTE | 2021-03-21 18:11 | Progress Note ---
Assessment and Plan Assessment and plan: This is 65-year-old male with COPD on 2 L home oxygen, ongoing tobacco abuse, history of vascular dementia admitted for sepsis, STEMI and V. tach cardiac arrest s/p cardiac cath with PCI, right foot ischemia/cyanosis with cold extremities, retroperitoneal/iliopsoas hematoma Neuro: Acute encephalopathy, h/o vascular dementia, cerebral sclerosis -Patient is alert and oriented on examination -Patient is from [place] -Avoid delirium -Reorientation as needed -CT head showed no acute infarct but extensive atherosclerotic disease with calcification -Continue aspirin, statin and Plavix -Bilateral restraints for safety Cardiology: S/p V. tach arrest 03/10, STEMI, acute systolic congestive heart failure with EF of 35 to 40% -S/p ACLS with shock and placed on amiodarone -S/p PCI to mid LAD and successful deployment of JARED -Cardiology consulted, appreciate recommendations -Aggrastat drip -Aspirin, statin, Plavix, beta-avery -S/p Levophed drip Respiratory: Acute on chronic respiratory failure with hypoxia, COPD exacerbation, nicotine abuse, ? Left pneumothorax -CCM and surgery consulted, appreciate recommendations -2 L nasal cannula at home -S/p intubation in the emergency department now extubated -BiPAP nightly -Patient seems to be able to be weaned to Venturi mask during the day however requires higher oxygenation at night. -Pulmonary hygiene -Continue SPO2 monitoring -S/p needle decompression and chest tube placement -03/08 CTA Chest: BL LL PNA noted, small left apical pneumo appreciated -Needed to be placed on nonrebreather today for hypoxia and central cyanosis-> RT asked to wean as tolerated GI: Possible GI bleed, transaminitis -GI and ntr consulted, appreciate recommendations -Protonix -TF at goal -Trend CBC, LFTs -Avoid hypoglycemia -ST eval recommends NPO : NAD -condom cath -Given Lasix again today Endo: Hypoglycemia -SSI -Accu-Cheks q6 -Avoid hypoglycemia ID: Severe sepsis with shock, bilateral pneumonia, Leukocytosis -Patient disease consulted, patient recommendations -S/p cefepime -S/p vasopressor support -Monitor for signs and symptoms of infection and fever curve -Leukocytosis may be r/t steroids Heme: Acute on chronic anemia, thrombocytopenia, Right iliopsoas hematoma, ruled out HIT, right foot ischemia -Hematology/oncology and vascular surgery consulted, appreciate recommendations -Argatroban drip -IV steroids per Hem/Onc -Trend CBC -HIT negative -Transfuse for hemoglobin less than 7 or hematocrit less than 23 (per heme/onc) -COVID pcr negative x2 -S/p 5 units PRBC -Left LE dp/pt pulses dopplerable; Right LE DP/PT pulses absent-> vascular surgery aware, plan to revascularize early next week The high probability of a clinically significant, sudden or life threatening deterioration of the [multi] system(s) required my full and direct attention, intervention and personal management. The aggregate critical care time was [60] minutes. This time is in addition to time spent performing reported procedures but includes the following: [x] Data Review and interpretation [x] Patient assessment and monitoring of vital signs [x] Documentation [x] Medication orders and management Disposition Plan: icu Total Time Spent with Patient (Minutes): 60 History Interval history: This is a 65-year-old male with COPD on 2L home O2, ongoing tobacco abuse and h/o vascular dementia brought to hospital by EMS for altered mental status and respiratory failure. On EMS arrival patient had a temperature 102.3, severely hypoxic with diminished breath sounds in the left side and there was a concern for pneumothorax on the left side. EMS performed a decompression of the left hemothorax but upon arrival to the emergency room EMS placed the chest tube/catheter became dislodged. Stat chest x-ray showed no obvious left-sided pneumothorax. Given altered mental status and respiratory failure with history of hypoxia patient was intubated by the ED physician. Code sepsis was called and the patient was admitted to ICU for further stabilization and Mx. He is neg for COVID x2. His hospital stay got complicated with STEMI and V. tach cardiac arrest, S/p cardiac cath with PCI to mid LAD by cardiology and following cardi ac cath he developed right foot ischemia/cyanosis with cold extremity - placed on heparin drip, h/h declined with black tarry stool x2 and CT abdomen suggesting of retroperitoneal/iliopsoas hematoma. Heparin drip has been discontinued, patient transfused 2 units of packed RBC. Consultants include: CCM, GI, Cardiology, Hematology/Oncology 03/09: Hypotensive in AM, Dr. Inman placed right IJ CVC. Patient intiated on pressors. UOP 200 cc overnight. 03/10: Planned for extubation today, repeat covid test pending. RN called for elevated trop - ordered serial trop, ekg, 2d echo, aspirin, statin and placed cardiology consult. will cont to follow clinically, pt remains on levophed 03/11: Patient had Vtech cardiac arrest last night. EKG showed acute STEMI. placed on amioderone and heparin drip. S/p PCI today with stent placement, discontinued heparin drip and started on Aggrastat. Patient now noted with cold bluish LE right>left. Discussed with Dr Armstrong and recommended to initiate low intensity heparin drip after sheath was removed. Placed order and discussed the plan with nurse and pharmacy. Ordered stat lower extremity arterial Doppler and consulted vascular surgeon. Patient remains on Ventimask with 10 to 15 L of O2. Patient also remains confused, continue supportive care and follow clinically. 03/12/21: LE remain clod and cyanotic, R> L. cont heparin drip, monitor h/h. vascular procedure when clinically more stable. discussed with daughter and updated with all clinical details. pt remains on pressor. critically ill. 03/13/21; Patient had bloody BM this am. stop heparin, start protonix IV BID. follow h/h, cont pressor, transfuse 2units PRBC. mental status declined - remains agitated and restrained. Requiring pressor support. Ordered for CT abdomen pelvis for profound anemia. platient was placed on bicarbonate drip for severe acidosis. pulled out first central line, new rIJ placed 03/14/21: CT abdomen pelvis suggestive of moderate right iliopsoas hematoma, continue to follow H&H and consult general surgery. pt on BIPAP today, h/h stable. hold ACEI/spiranolactone for GAURAV. d/c bicarbonate drip as pt becoming alkalotic. patient remains confused and agitated - on restraint 03/15/21: patient on 4L n/c today, remains lethargic, H&H stable after 2 units of packed RBC on 03/13. Remains off anticoagulation due to low platelets. Very poor prognosis, vascular following for retroperitoneal hematoma. GI recommended medical management for now possible GI bleed. Per GI patient is not stable from respiratory standpoint for endoscopy. Extremely poor prognosis, will bessy te family. Continue to monitor clinically 03/16/21: updated both daughter in details. Patient placed back on BiPAP, repeat H&H and BMP ordered. Noted improved renal function, try to initiate tube fe eding today. Platelet count continues to decline -we will consult hematology. Continue to hold anticoagulation. We will initiate aspirin and Plavix after placing Dobbhoff tube. Discussed CODE STATUS and poor prognosis with patient daughters and they stated they will decide soon. 03/17: Argatroban was stopped by cardiology be resumed by heme/oncology who also wants to continue Solu-Medrol and transfuse 1 unit PRBC if hematocrit less than 23. Patient was preloaded with Plavix and the need on daily dose of Plavix and aspirin per cardiology also stop argatroban today due to further evidence of possible possible bleeding and drop in hematocrit. 03/18/21: Argatroban restarted this morning by heme, Accu-Cheks every 4, started on D10 and per RN request placed on mechanical soft diet. Reviewed ST no which recommends NPO. 03/19: Vascular surgery plans to revascularize early next week, will order BiPAP nightly, continue argatroban. Patient is on tube feedings and we will stop D10. Lasix x1. 03/20: Patient was not on Bipap overnight. Remains on argatoban gtt. Tolerating TF. H/H 6.9/20.3 and ordered one unit prbc. 03/21: Patient needed to be placed on NRB today for hypoxia. Given lasix today again. RT asked to wean oxygenation as tolerated. Remains in mittens for safety on TF. Hospitalist Physical - Constitutional Vitals: Temp Pulse Resp BP Pulse Ox 97.3 F L 91 H 16 119/53 100 03/21/21 04:32 03/21/21 18:00 03/21/21 18:00 03/21/21 18:00 03/21/21 18:00 General appearance: Present: no acute distress - EENT Eyes: Present: PERRL, EOM intact ENT: hearing decreased, poor dentition - Neck Neck: Present: normal ROM - Respiratory Respiratory effort: normal Respiratory: bilateral: diminished - Cardiovascular Rhythm: regular Heart Sounds: Present: S1 & S2. Absent: systolic murmur, diastolic murmur - Extremities Extremities: pulses intact, pulses symmetrical Extremity abnormal: cyanosis, erythema, pulses diminished, tenderness - Peripheral Assessment Left Skin Temperature: Cold Bilateral Lower Extremity Skin Temperature: Cool Peripheral Pulses: abnormal - Peripheral pulses posterial tibial Pulse Strength: 1+ (Doppler) (left; nonpapable on right) dorsalis pedis Pulse Strength: 1+ (Doppler) (left dopllar, right absent) - Abdominal General gastrointestinal: soft, non-tender, non-distended, normal bowel sounds - Integumentary Integumentary: Present: dry, erythema - Psychiatric Psychiatric: depressed - Neurologic Neurologic: moves all extremities - Allied Health Allied health notes reviewed: nursing, social work HEART Score - HEART Score Age: > 65 Risk factors: No known risk factors Troponin: Troponin T 0.261 ng/mL (0.00-0.029) H* D 03/12/21 04:40 Troponin: < normal limit - Critical Actions Critical Actions: 0-3 pts:0.9-1.7%risk of adverse cardiac event.Candidate for discharge Results - Labs CBC & Chem 7: 03/21/21 14:30 03/21/21 04:00 Labs: Laboratory Last Values WBC 20.1 K/mm3 (4.5-11.0) H 03/21/21 14:30 RBC 2.95 M/mm3 (3.65-5.03) L 03/21/21 14:30 Hgb 9.0 gm/dl (11.8-15.2) L 03/21/21 14:30 Hct 26.7 % (35.5-45.6) L 03/21/21 14:30 MCV 91 fl (84-94) 03/21/21 14:30 MCH 31 pg (28-32) 03/21/21 14:30 MCHC 34 % (32-34) 03/21/21 14:30 RDW 15.9 % (13.2-15.2) H 03/21/21 14:30 Plt Count 44 K/mm3 (140-440) L 03/21/21 14:30 Lymph % (Auto) 2.6 % (13.4-35.0) L 03/10/21 05:14 [place] % (Auto) 7.5 % (0.0-7.3) H 03/10/21 05:14 Eos % (Auto) 0.0 % (0.0-4.3) 03/10/21 05:14 Baso % (Auto) 0.1 % (0.0-1.8) 03/10/21 05:14 Lymph # (Auto) 0.3 K/mm3 (1.2-5.4) L 03/10/21 05:14 [place] # (Auto) 0.9 K/mm3 (0.0-0.8) H 03/10/21 05:14 Eos # (Auto) 0.0 K/mm3 (0.0-0.4) 03/10/21 05:14 Baso # (Auto) 0.0 K/mm3 (0.0-0.1) 03/10/21 05:14 Add Manual Diff Complete 03/21/21 14:30 Total Counted 100 03/21/21 14:30 Seg Neutrophils % Computer Aided Design Technician 03/21/21 14:30 Seg Neuts % (Manual) 93.0 % (40.0-70.0) H 03/18/21 05:00 Band Neutrophils % 1.0 % 03/21/21 14:30 Lymphocytes % (Manual) 1.0 % (13.4-35.0) L 03/21/21 14:30 Monocytes % (Manual) 2.0 % (0.0-7.3) 03/21/21 14:30 Nucleated RBC % Not Reportable 03/21/21 14:30 Seg Neutrophils # 10.8 K/mm3 (1.8-7.7) H 03/10/21 05:14 Seg Neutrophils # Man 19.3 K/mm3 (1.8-7.7) H 03/21/21 14:30 Band Neutrophils # 0.2 K/mm3 03/21/21 14:30 Lymphocytes # (Manual) 0.2 K/mm3 (1.2-5.4) L 03/21/21 14:30 Abs React Lymphs (Man) 0.0 K/mm3 03/21/21 14:30 Monocytes # (Manual) 0.4 K/mm3 (0.0-0.8) 03/21/21 14:30 Eosinophils # (Manual) 0.0 K/mm3 (0.0-0.4) 03/21/21 14:30 Basophils # (Manual) 0.0 K/mm3 (0.0-0.1) 03/21/21 14:30 Metamyelocytes # 0.0 K/mm3 03/21/21 14:30 Myelocytes # 0.0 K/mm3 03/21/21 14:30 Promyelocytes # 0.0 K/mm3 03/21/21 14:30 Blast Cells # 0.0 K/mm3 03/21/21 14:30 Pathologist Review 03/18/21 05:00 WBC Morphology Not Reportable 03/21/21 14:30 WBC Morphology TNR 03/21/21 14:30 Hypersegmented Neuts Not Reportable 03/21/21 14:30 Hyposegmented Neuts Not Reportable 03/21/21 14:30 Hypogranular Neuts Not Reportable 03/21/21 14:30 Smudge Cells Not Reportable 03/21/21 14:30 Toxic Granulation Not Reportable 03/21/21 14:30 Toxic Vacuolation Not Reportable 03/21/21 14:30 Dohle Bodies Not Reportable 03/21/21 14:30 Pelger-Huet Anomaly Not Reportable 03/21/21 14:30 Maritza Rods Not Reportable 03/21/21 14:30 Platelet Estimate Consistent w auto 03/21/21 14:30 Clumped Platelets Not Reportable 03/21/21 14:30 Plt Clumps, EDTA Not Reportable 03/21/21 14:30 Large Platelets Not Reportable 03/21/21 14:30 Giant Platelets Not Reportable 03/21/21 14:30 Platelet Satelliting Not Reportable 03/21/21 14:30 Plt Morphology Comment Not Reportable 03/21/21 14:30 RBC Morphology Not Reportable 03/21/21 14:30 Dimorphic RBCs Not Reportable 03/21/21 14:30 Polychromasia Not Reportable 03/21/21 14:30 Hypochromasia Not Reportable 03/21/21 14:30 Poikilocytosis Not Reportable 03/21/21 14:30 Anisocytosis Not Reportable 03/21/21 14:30 Microcytosis Not Reportable 03/21/21 14:30 Macrocytosis Not Reportable 03/21/21 14:30 Spherocytes Not Reportable 03/21/21 14:30 Pappenheimer Bodies Not Reportable 03/21/21 14:30 Sickle Cells Not Reportable 03/21/21 14:30 Target Cells Few 03/21/21 14:30 Tear Drop Cells Not Reportable 03/21/21 14:30 Ovalocytes Not Reportable 03/21/21 14:30 Helmet Cells Not Reportable 03/21/21 14:30 [place] Bodies Not Reportable 03/21/21 14:30 [place] Rings Not Reportable 03/21/21 14:30 [place] Cells Not Reportable 03/21/21 14:30 Bite Cells Not Reportable 03/21/21 14:30 Crenated Cell Not Reportable 03/21/21 14:30 Elliptocytes Not Reportable 03/21/21 14:30 Acanthocytes (Spur) Not Reportable 03/21/21 14:30 Rouleaux Not Reportable 03/21/21 14:30 Hemoglobin C Crystals Not Reportable 03/21/21 14:30 Schistocytes Not Reportable 03/21/21 14:30 Malaria parasites Not Reportable 03/21/21 14:30 [place] Bodies Not Reportable 03/21/21 14:30 Hem Pathologist Commnt No 03/21/21 14:30 PT 22.7 Sec. (12.2-14.9) H 03/21/21 04:00 INR 1.94 (0.87-1.13) H 03/21/21 04:00 APTT 72.7 Sec. (24.2-36.6) H* 03/20/21 21:40 D-Dimer 832.06 ng/mlDDU (0-234) H 03/08/21 15:49 Heparin Anti-Xa Level 0.65 U.I./ml (0.3-0.7) 03/13/21 01:44 Heparin Anti-Xa, Unfract Negative (Negative) 03/17/21 06:30 ABG pH 7.389 (7.320-7.450) 03/17/21 00:35 POC ABG pCO2 69.0 mmHg (32.0-48.0) H 03/17/21 00:35 ABG pCO2 43.0 mm Hg 03/08/21 15:12 POC ABG pO2 84.0 mmHg (83-108) 03/17/21 00:35 ABG pO2 381.9 mm Hg (80.0-90.0) H 03/08/21 15:12 POC ABG HCO3 40.7 03/17/21 00:35 ABG HCO3 31.2 mmol/L (20.0-26.0) H 03/08/21 15:12 ABG O2 Saturation 95.3 (0-100) 03/17/21 00:35 ABG O2 Content 18.9 (0.0-44) 03/08/21 15:12 POC ABG Base Excess 14.2 03/17/21 00:35 ABG Base Excess 6.9 mmol/L (-2.0-3.0) H 03/08/21 15:12 ABG Hemoglobin 7.2 (12.0-17.5) L 03/17/21 00:35 ABG Oxyhemoglobin 94.3 (94-98) 03/17/21 00:35 ABG Carboxyhemoglobin 1.5 % (0.0-5.0) 03/08/21 15:12 ABG Methemoglobin 0.3 (0.0-1.5) 03/17/21 00:35 ABG Sodium 135.0 mmol/L (136.0-145.0) L 03/17/21 00:35 ABG Potassium 3.7 mmol/L (3.40-4.50) 03/17/21 00:35 ABG Chloride 98.0 mmol/L (98-107) 03/17/21 00:35 ABG Glucose 110 mg/dL (65-95) H 03/17/21 00:35 Oxyhemoglobin 97.5 % (95.0-99.0) 03/08/21 15:12 Carboxyhemoglobin 0.8 (0.5-1.5) 03/17/21 00:35 FiO2 100 % 03/08/21 15:12 FiO2 % 70.0 03/16/21 21:59 Sodium 140 mmol/L (137-145) 03/21/21 04:00 Potassium 3.8 mmol/L (3.6-5.0) 03/21/21 04:00 Chloride 94.1 mmol/L (98-107) L 03/21/21 04:00 Carbon Dioxide 45 mmol/L (22-30) H* 03/21/21 04:00 Anion Gap 5 mmol/L 03/21/21 04:00 BUN 24 mg/dL (9-20) H 03/21/21 04:00 Creatinine 0.8 mg/dL (0.8-1.3) 03/21/21 04:00 Estimated GFR > 60 ml/min 03/21/21 04:00 BUN/Creatinine Ratio 30 % 03/21/21 04:00 Glucose 116 mg/dL (75-100) H 03/21/21 04:00 POC Glucose 165 mg/dL (70-105) H 03/21/21 17:02 Hemoglobin A1c 5.6 % (4-6) 03/09/21 06:18 Lactic Acid 3.40 mmol/L (0.7-2.0) H* 03/08/21 15:49 Calcium 7.4 mg/dL (8.4-10.2) L 03/21/21 04:00 Phosphorus 2.60 mg/dL (2.5-4.5) 03/20/21 04:47 Magnesium 1.70 mg/dL (1.7-2.3) 03/20/21 04:47 Ferritin 1373.0 ng/mL (30.0-300.0) H 03/08/21 15:49 Total Bilirubin 1.10 mg/dL (0.1-1.2) 03/21/21 04:00 Direct Bilirubin 0.3 mg/dL (0-0.2) H 03/18/21 05:00 Indirect Bilirubin 0.7 mg/dL 03/18/21 05:00 AST 58 units/L (5-40) H 03/21/21 04:00 ALT 160 units/L (7-56) H 03/21/21 04:00 Alkaline Phosphatase 50 units/L (35-129) 03/21/21 04:00 Ammonia 22.0 umol/L (25-60) L 03/08/21 15:49 Lactate Dehydrogenase 209 units/L (91-180) H 03/08/21 15:49 Total Creatine Kinase 98 units/L (55-170) 03/10/21 05:14 CK-MB (CK-2) 17.8 ng/mL (0.0-4.0) H 03/10/21 05:14 CK-MB (CK-2) Rel Index 18.1 (0-4) H 03/10/21 05:14 Troponin T 0.261 ng/mL (0.00-0.029) H* D 03/12/21 04:40 C-Reactive Protein 24.00 mg/dL (0.00-1.30) H 03/08/21 15:49 Total Protein 4.6 g/dL (6.3-8.2) L 03/21/21 04:00 Albumin 2.1 g/dL (3.9-5) L 03/21/21 04:00 Albumin/Globulin Ratio 0.8 % 03/21/21 04:00 Prealbumin 0.058 g/L (0.200-0.400) L 03/09/21 00:00 Triglycerides 173 mg/dL (2-149) H 03/10/21 05:14 Cholesterol 130 mg/dL (50-199) 03/10/21 05:14 LDL Cholesterol Direct 68 mg/dL (50-130) 03/10/21 05:14 HDL Cholesterol 36 mg/dL (40-59) L 03/10/21 05:14 Cholesterol/HDL Ratio 3.61 % 03/10/21 05:14 Procalcitonin 1.35 ng/mL (<0.15) 03/08/21 15:49 TSH 2.030 mlU/mL (0.270-4.200) 03/08/21 15:49 Arterial Blood Glucose 110 mg/dL (65-95) H 03/17/21 00:35 Arterial Blood Ionized Calcium 4.0 mg/dL (4.6-5.3) L 03/17/21 00:35 Urine Color [place] (Yellow) 03/08/21 16:54 Urine Turbidity Cloudy (Clear) 03/08/21 16:54 Urine pH 5.0 (5.0-7.0) 03/08/21 16:54 Ur Specific [place] 1.019 (1.003-1.030) 03/08/21 16:54 Urine Protein 100 mg/dl mg/dL (Negative) 03/08/21 16:54 Urine Glucose (UA) Neg mg/dL (Negative) 03/08/21 16:54 Urine Ketones Tr mg/dL (Negative) 03/08/21 16:54 Urine Blood Mod (Negative) 03/08/21 16:54 Urine Nitrite Neg (Negative) 03/08/21 16:54 Urine Bilirubin Neg (Negative) 03/08/21 16:54 Urine Urobilinogen < 2.0 mg/dL (<2.0) 03/08/21 16:54 Ur Leukocyte Esterase Neg (Negative) 03/08/21 16:54 Urine WBC (Auto) 2.0 /HPF (0.0-6.0) 03/08/21 16:54 Urine RBC (Auto) 3.0 /HPF (0.0-6.0) 03/08/21 16:54 U Epithel Cells (Auto) 1.0 /HPF (0-13.0) 03/08/21 16:54 Urine Bacteria (Auto) 1+ /HPF (Negative) 03/08/21 16:54 Hyaline Casts 1 /LPF 03/08/21 16:54 Urine Mucus Few /HPF 03/08/21 16:54 Salicylates 5.6 mg/dL (2.8-20.0) 03/08/21 15:49 Acetaminophen 5.0 ug/mL (10.0-30.0) L 03/08/21 15:49 Heparin-induced Plt Ab Negative (Negative) 03/17/21 06:30 UF Heparin High Dose 3 % Release 03/17/21 06:30 MARGARITA UFH Low Dose 0.1 0 % Release 03/17/21 06:30 MARGARITA UFH Low Dose 0.5 0 % Release 03/17/21 06:30 Coronavirus (PCR) Negative (Negative) 03/10/21 Unknown Blood Type B POSITIVE 03/20/21 10:54 Antibody Screen Negative 03/20/21 10:54 Crossmatch See Detail 03/20/21 10:54 Savage/IV: Voiding Method Condom Catheter Active Medications - Current Medications Current Medications: Generic Name Dose Route Start Last Admin Trade Name Freq PRN Reason Stop Dose Admin Acetaminophen 650 mg 03/08/21 21:36 Acetaminophen 325 Mg Tab PO Q4H PRN Pain MILD(1-3)/Fever >100.5/MYERS Hydrocodone Bitart/Acetaminophen 1 each 03/11/21 13:59 Hydrocodone/Acetaminophen 5-325 Mg Tab PO Q6H PRN Pain, Moderate (4-6) Albuterol 2.5 mg 03/15/21 19:28 03/19/21 05:28 Albuterol 2.5 Mg/3 Ml Nebu IH 2.5 mg Q4HRT PRN Administration Shortness Of Breath Lipase/Protease/Amylase 1 each 03/08/21 21:42 Lipase 10,500/Protease 25,000/Amylase 43,750 (Units) Dr Johnson FEEDTUBE PRN PRN For Clogged Feeding Tube Arformoterol Tartrate 15 mcg 03/10/21 20:00 03/21/21 08:51 Arformoterol 15 Mcg/2 Ml Nebu IH 15 mcg Q12HRT PRINCESS Administration Aspirin 81 mg 03/10/21 15:00 03/21/21 09:45 Aspirin 81 Mg Tab Chew PO 81 mg QDAY PRINCESS Administration Atorvastatin Calcium 40 mg 03/11/21 22:00 03/20/21 22:52 Atorvastatin 40 Mg Tab PO 40 mg QHS PRINCESS Administration Budesonide 0.5 mg 03/09/21 20:00 03/21/21 08:51 Budesonide 0.5 Mg/2 Ml Nebu IH 0.5 mg Q12HRT PRINCESS Administration Clopidogrel Bisulfate 75 mg 03/12/21 10:00 03/21/21 09:45 Clopidogrel 75 Mg Tab PO 75 mg QDAY PRINCESS Administration Dextrose 50 ml 03/17/21 20:20 Dextrose 50% In Water (25gm) 50 Ml Syringe IV Q30MIN PRN Hypoglycemia Protocol Fondaparinux 2.5 mg 03/21/21 10:00 03/21/21 10:24 Fondaparinux 2.5 Mg/0.5 Ml Inj SUB-Q 2.5 mg QDAY [facility] Administration Haloperidol Lactate 5 mg 03/13/21 11:15 03/20/21 22:52 Haloperidol Lactate 5 Mg/1 Ml Inj IV 5 mg Q6H PRN Administration Agitation Sodium Chloride 500 mls @ 0 mls/hr 03/20/21 15:44 Nacl 0.9% 500 Ml IV ONCE [facility] As Directed Insulin Human Lispro 0 unit 03/10/21 12:00 03/21/21 17:41 Insulin Lispro 100 Unit/Ml SUB-Q 3 unit Q6HR PRINCESS Administration Protocol Lorazepam 2 mg 03/21/21 00:00 03/21/21 02:19 Lorazepam 2 Mg/Ml Vial IV 2 mg Q4HR PRN Administration Agitation Methylprednisolone Sodium Succinate 40 mg 03/18/21 12:00 03/21/21 09:45 Methylprednisolone Sod Succinate 40 Mg/1 Ml Inj IV 40 mg Q24HR PRINCESS Administration Metoclopramide HCl 10 mg 03/08/21 21:36 Metoclopramide 10 Mg/2 Ml Inj IV Q6H PRN Nausea And Vomiting Metoprolol Tartrate 5 mg 03/17/21 16:00 03/21/21 17:42 Metoprolol Tartrate 5 Mg/5 Ml Inj IV 5 mg Q6H PRINCESS Administration Morphine Sulfate 1 mg 03/14/21 17:07 03/16/21 09:35 Morphine 2 Mg/1 Ml Inj IV 1 mg Q4H PRN Administration Pain, Moderate (4-6) Nitroglycerin 0.4 mg 03/16/21 06:00 03/21/21 06:37 Nitroglycerin 0.4 Mg Patch 24hr TD 0.4 mg QDAY@0600 PRINCESS Administration Ondansetron HCl 4 mg 03/08/21 21:36 Ondansetron 4 Mg/2 Ml Inj IV Q3H PRN Nausea And Vomiting Pantoprazole Sodium 40 mg 03/13/21 13:00 03/21/21 09:45 Pantoprazole 40 Mg Inj IV 40 mg BID PRINCESS Administration Simple Syrup 15 ml 03/08/21 21:42 Simple Syrup 15 Ml FEEDTUBE PRN PRN Hypoglycemia Simple Syrup 30 ml 03/08/21 21:42 Simple Syrup 15 Ml FEEDTUBE PRN PRN Hypoglycemia Sodium Bicarbonate 325 mg 03/08/21 21:42 Sodium Bicarbonate 325 Mg Tab FEEDTUBE PRN PRN For Clogged Feeding Tube Sodium Chloride 10 ml 03/08/21 22:00 03/21/21 09:46 Sodium Chloride 0.9% 10 Ml Flush Syringe IV 10 ml BID PRINCESS Administration Sodium Chloride 10 ml 03/08/21 21:36 03/16/21 05:17 Sodium Chloride 0.9% 10 Ml Flush Syringe IV 10 ml PRN PRN Administration LINE FLUSH Nutrition/Malnutrition Assess - Dietary Evaluation Nutrition/Malnutrition Findings: Nutrition Notes Start: 03/09/21 07:48 Freq: Status: Active Protocol: Document 03/19/21 12:17 (Rec: 03/19/21 12:21 [email or web address]) Nutrition Notes Initial or Follow up Brief Note Current Diagnosis Sepsis,Respiratory Failure Other Pertinent Diagnosis pneu, COVID PUI, anemia, AMS Current Diet Cardiac Subjective/Other Information Pt on high flow. 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 Pt will be on bipap at night, will cycle TF. Pt currently tolerating TF at 20 ml/hr. Nutrition Intervention Change Diet Order: continue Nutrition Support: 12 Hour TF Cycle: 6969-7610 hr: Osmolite 1.5 at 80 ml/hr or as tolerated. Flush 200 ml q4h or per MD Kcal 1,440 Protein (gm) 60 Fluid (mL) 732 Goal #1 Meet at least 75% of energy and protein needs via TF Anticipated Discharge Needs: cardiac Follow-Up By: 03/23/21 Additional Comments F/u: TF tolerance, respiratory status
[2021-03-22] MEDS ORDERED: DEXTROSE 10% IN WATER 1,000 ML IV SCH (01:00)
--- NOTE | 2021-03-22 01:09 | Event Note ---
Date: 03/22/21 At 12:20 AM I received a call from Dr. Perdomo the hospitalist requesting that I assist with intubation of the patient in the ICU. When I arrived at the bedside, further history was provided. This is a 65-year-old male who was initially admitted for altered mental status and was intubated but then extubated and has continued to deteriorate since then. He underwent a PCI procedure for right clot in his leg and has been on and off BiPAP over the past few days. Tonight, his respiratory status worsened and he was satting in the 80s even on BiPAP. ABG was performed which revealed hypercarbic respiratory failure with PCO2 of 115. No consent was obtained due to the emergent nature of the procedure. The procedure time was 12:48 AM. My hands were washed immediately prior to the procedure. The patient was prepped and placed in the appropriate position supine in the bed. He was placed on a technical operations specialist including continuous pulse oximetry throughout the procedure. Rapid sequence intubation was performed. The patient received 20 mg of etomidate for induction and 80 mg of rocuronium for paralysis. Cricoid pressure was maintained. Using a fiberoptic laryngoscope and a size 7.5 endotracheal tube with stylette, the patient was intubated on the second attempt. The stylet was removed and the cuff was inflated. Appropriate endotracheal tube position was confirmed by direct visualization of vocal cord passage, fogging of the tube, CO2 colorimetric indicator, and bilateral breath sounds. The tube was secured at 23 cm at the ps. Postintubation x-ray is ordered and is pending at this time.
[2021-03-22] MEDS ORDERED: SODIUM BICARB 8.4% 50 MEQ/50 ML SYRINGE IV ONE ×3 (01:22→02:32)
--- NOTE | 2021-03-22 01:55 | Death Note ---
Note Date of : 03/22/21 Time of : 01:36 Time Pronounced: 01:38 - Preliminary Cause of (problem) (1) Acute respiratory failure with hypoxia Preliminary cause of Patient was developing respiratory failure. ABG showed pH is 7.279. PCO2 113.5 and PO2 46.2. Subsequently patient was intubated by the ER physician Dr. Mckeon. Then patient developed asystole/PEA. CPR was given as per ACLS protocol. Multiple AP, multiple atropine, multiple bicarb and calcium gluconate was given. Patient was given CPR performed 30 to 32 minutes. Patient was shocked once but patient failed to regain ROSC. Case discussed with patient family and daughters and as per the request code was ended. Patient had a poor prognosis. Patient at 1:36 AM on 03/22/2021 due to cardiopulmonary arrest, respiratory failure, acute encephalopathy status post V. tach arrest NSTEMI. Family and daughter son notified.
[2021-03-22 01:56] VITALS: BP 147/103
[2021-03-22] MEDS ORDERED: ATROPINE 0.1% (1 MG/10 ML) CARDIAC SYRINGE ONE (02:32)
[2021-03-22] MEDS ORDERED: EPINEPHrine 1 MG/10 ML SYRINGE ONE (02:32)
[2021-03-22] MEDS ORDERED: CALCIUM CHLORIDE 1,000 MG/10 ML SYRINGE IV ONE (02:32)
[2021-03-22] MEDS ORDERED: SUCCINYLCHOLINE CHLORIDE 200 MG/10 ML INJ MDV ONE (03:51)
[2021-03-22] MEDS ORDERED: ROCURONIUM 50 MG/5 ML INJ IV ONE (03:51)
--- NOTE | 2021-03-22 17:20 | Death Summary ---
Summary - Providers Date of service: 03/22/21 Consults: 03/08/21 14:33 Consult to Physician [CONS] Stat Comment: Consulting Provider: USMAN INMAN Physician Instructions: Reason For Exam: acuet resp failiure 03/08/21 21:42 Consult to Dietitian/Nutrition [CONS] Routine Physician Instructions: Assess nutrtn needs, initiate, modify, manage TF Reason For Exam: Reason for Consult: Write/Manage Tube Feeding Reason for Consult: Write/Manage Tube Feeding 03/09/21 06:56 Consult to Physician [CONS] Routine Comment: [place] [facility]/ seven Consulting Provider: SANDI HANNAH Physician Instructions: Reason For Exam: sepsis 03/10/21 14:29 Consult to Physician [CONS] Routine Comment: called office/ seven Consulting Provider: RABIA SOMMERS Physician Instructions: Reason For Exam: elevated troponin 03/11/21 Consult to Cardiac Rehabilitation [CONS] Routine Reason For Exam: post pci 03/11/21 18:48 Consult to Physician [CONS] Routine Comment: Consulting Provider: MARISELA COLLINS Physician Instructions: Reason For Exam: diminished dorsalis pedis pulse/PVD 03/13/21 16:31 Occupational Therapy Evaluate and Treat [CONS] Routine Comment: Reason For Exam: Debility Physical Therapy Evaluation and Treat [CONS] Routine Comment: Reason For Exam: Debility 03/14/21 13:14 Consult to Physician [CONS] Routine Comment: Consulting Provider: NAOMIE MCKEON Physician Instructions: Reason For Exam: GI bleed 03/16/21 10:06 Consult to Physician [CONS] Routine Comment: spoke to the doctor/ seven Consulting Provider: ADWOA BOYD Physician Instructions: Reason For Exam: thrombocytopenia with internal bleed 03/17/21 11:36 Speech Therapy Evaluation and Treat [CONS] Routine Reason For Exam: aspiration 03/18/21 12:00 Consult to Dietitian/Nutrition [CONS] Routine Physician Instructions: Reason For Exam: Reason for Consult: Write/Manage Tube Feeding Attending: SOPHIA SAMPSON MD - summary Date of admission: 03/08/21 18:24 Date of : 03/22/21 Procedures/treatments rendered: This is a 65-year-old male with COPD on 2L home O2, ongoing tobacco abuse and h/o vascular dementia brought to hospital by EMS for altered mental status and respiratory failure. On EMS arrival patient had a temperature 102.3, severely hypoxic with diminished breath sounds in the left side and there was a concern for pneumothorax on the left side. EMS performed a decompression of the left hemothorax but upon arrival to the emergency room EMS placed the chest tube/catheter became dislodged. Stat chest x-ray showed no obvious left-sided pneumothorax. Given altered mental status and respiratory failure with history of hypoxia patient was intubated by the ED physician. Code sepsis was called and the patient was admitted to ICU for further stabilization and Mx. He is neg for COVID x2. His hospital stay got complicated with STEMI and V. tach cardiac arrest, S/p cardiac cath with PCI to mid LAD by cardiology and following cardiac cath he developed right foot ischemia/cyanosis with cold extremity - placed on heparin drip, h/h declined with black tarry stool x2 and CT abdomen suggesting of retroperitoneal/iliopsoas hematoma. Heparin drip has been discontinued, patient transfused 2 units of packed RBC. Consultants include: CCM, GI, Cardiology, Hematology/Oncology. On 03/09 patient was hypotensive in AM, Dr. Inman placed right IJ CVC and intiated on pressors. On 03/10 patient was extubated and RN noted elevated troponins and cardiac work-up followed. On 03/11 patient had a V. tach cardiac arrest overnight, ECG showed acute STEMI, amiodarone and heparin drip started and patient was taken for PCI with stent placement and he was started on Aggrastat drip. Patient noted to have cold and cyanotic bilateral lower extremities right greater than left and cardiology initiated low intensity heparin drip after sheath removal. Stat lower extremity Doppler ultrasounds were ordered and vascular surgery was consulted. Patient remains on heparin drip until 03/13 when he developed GI bleed and GI was consulted. Patient was very agitated and removed central line, we received 2 units [address] and a CT abdomen/pelvis was obtained. Patient was placed on a bicarbonate drip for severe acidosis. Central line was repleted. Nasal Atrovent CT abdomen/pelvis suggested moderate right iliopsoas hematoma, general surgery was consulted and the patient was on BiPAP. Patient was alkalotic and bicarb drip was discontinued. On 03/15 patient was able to be weaned down to 4 L nasal cannula however he was lethargic and received 2 more units of PRBC for anemia. Patient was noted to have a retroperitoneal hematoma and GI recommended medical maintenance of possible GI bleed. On 03/16 patient family was updated and he was placed back on BiPAP with repeat chemistries ordered. Hematology/oncology was also consulted. And patient was started on aspirin and Plavix. On 03/17 argatroban drip was stopped by cardiology but resumed by hematology/oncology and patient was placed on steroid taper with 1 unit PRBC transfusion. Patient was reloaded with Plavix and Plavix was restarted along with aspirin. Patient was started on D10 drip for hypoglycemia on 03/[address] evaluation recommended n.p.o. Dobbhoff tube was placed for tube feedings. On 03/19 vascular surgery stated that they will like to revascularize the patient the following week and BiPAP was ordered nightly as patient needed high oxygenation overnight. Argatroban was continued and tube feedings were started so D10 was stopped. Patient was given Lasix. On 03/10 patient was on BiPAP overnight he was tolerating his tube feedings and he was anemic so he received 1 more unit PRBC. On 03/21 patient was placed on a nonrebreather for hypoxia and given Lasix today again. Patient remained in [facility] for safety while on tube feedings. Overnight the patient developed respiratory distress and was eventually intubated and had a cardiac arrest. Attempts were made to resuscitate the patient was however the patient sadly . Family was informed by the night hospitalist. Acute encephalopathy h/o vascular dementia cerebral sclerosis S/p V. tach arrest 03/10 STEMI acute systolic congestive heart failure with EF of 35 to 40% Acute on chronic respiratory failure with hypoxia COPD exacerbation nicotine abuse ? Left pneumothorax GIB, transaminitis Hypoglycemia Severe sepsis with shock bilateral pneumonia Leukocytosis Acute on chronic anemia thrombocytopenia Right iliopsoas hematoma ruled out HIT right foot ischemia CCT 30 - Final diagnosis (1) Acute encephalopathy Note: Final diagnosis: (2) Acute myocardial infarction Note: Final diagnosis: (3) Acute respiratory failure with hypoxia Note: Final diagnosis: (4) Bilateral pneumonia Note: Final diagnosis: (5) Hematoma Note: Final diagnosis: (6) Hyperglycemia Note: Final diagnosis: (7) Sepsis Note: Final diagnosis: (8) Transaminitis Note: Final diagnosis: (9) Anemia Qualifiers: Anemia type: unspecified type Qualified Code(s): D64.9 - Anemia, unspecified Note: Final diagnosis:
== END 2021-03-22 01:36 | DRG 853 ==
LOC: ED 14:17 → CC1 18:24 → EDBD 18:24 → CC1 19:49
PROVIDERS: ADMIT Internal Medicine; ATTEND Internal Medicine
PROC: 0BH17EZ Insertion of Endotracheal Airway into Trachea, Via Natural or Artificial Opening (ICD-10-PCS; principal; 2021-03-08)
PROC: 5A1945Z Respiratory Ventilation, 24-96 Consecutive Hours (ICD-10-PCS; 2021-03-08)
PROC: 4A033R1 Measurement of Arterial Saturation, Peripheral, Percutaneous Approach (ICD-10-PCS; 2021-03-10)
PROC: 027044Z Dilation of Coronary Artery, One Artery with Drug-eluting Intraluminal Device, Percutaneous Endoscopic Approach (ICD-10-PCS; 2021-03-11)
PROC: B2111ZZ Fluoroscopy of Multiple Coronary Arteries using Low Osmolar Contrast (ICD-10-PCS; 2021-03-11)
PROC: 05HY33Z Insertion of Infusion Device into Upper Vein, Percutaneous Approach (ICD-10-PCS; 2021-03-13)
PROC: 04HY33Z Insertion of Infusion Device into Lower Artery, Percutaneous Approach (ICD-10-PCS; 2021-03-13)
PROC: 5A09457 Assistance with Respiratory Ventilation, 24-96 Consecutive Hours, Continuous Positive Airway Pressure (ICD-10-PCS; 2021-03-13)
PROC: 5A09457 Assistance with Respiratory Ventilation, 24-96 Consecutive Hours, Continuous Positive Airway Pressure (ICD-10-PCS; 2021-03-20)
PROC: 5A1935Z Respiratory Ventilation, Less than 24 Consecutive Hours (ICD-10-PCS; 2021-03-22)
PROC: 5A12012 Performance of Cardiac Output, Single, Manual (ICD-10-PCS; 2021-03-22)
PROC: 0BH17EZ Insertion of Endotracheal Airway into Trachea, Via Natural or Artificial Opening (ICD-10-PCS; 2021-03-22)
DX: A41.9 Sepsis, unspecified organism (principal); J96.01 Acute respiratory failure with hypoxia; I21.09 ST elevation (STEMI) myocardial infarction involving other coronary artery of anterior wall; J15.9 Unspecified bacterial pneumonia; R65.21 Severe sepsis with septic shock; I50.21 Acute systolic (congestive) heart failure; U07.1 COVID-19; E87.1 Hypo-osmolality and hyponatremia; J93.83 Other pneumothorax; I47.2 Ventricular tachycardia; E87.4 Mixed disorder of acid-base balance; G93.1 Anoxic brain damage, not elsewhere classified; E87.2 Acidosis; G37.9 Demyelinating disease of central nervous system, unspecified; J44.1 Chronic obstructive pulmonary disease with (acute) exacerbation; I46.2 Cardiac arrest due to underlying cardiac condition; R57.0 Cardiogenic shock; R74.01 Elevation of levels of liver transaminase levels; R77.8 Other specified abnormalities of plasma proteins; R73.9 Hyperglycemia, unspecified; I73.89 Other specified peripheral vascular diseases; D50.0 Iron deficiency anemia secondary to blood loss (chronic); Z79.899 Other long term (current) drug therapy; Z79.01 Long term (current) use of anticoagulants; Z79.891 Long term (current) use of opiate analgesic; Z20.822 Contact with and (suspected) exposure to COVID-19; F17.200 Nicotine dependence, unspecified, uncomplicated; D69.6 Thrombocytopenia, unspecified; T45.515A Adverse effect of anticoagulants, initial encounter; Y92.89 Other specified places as the place of occurrence of the external cause; Z82.49 Family history of ischemic heart disease and other diseases of the circulatory system
CPT/HCPCS: 36415; 36600; 70450; 71045; 71250; 72125; 74018; 74176; 80048; 80053; 80061; 80076; 80320; 81001; 82140; 82550; 82553; 82728; 82803; 82805; 82947; 82962; 83036; 83615; 83735; 84100; 84134; 84145; 84443; 84484; 85007; 85014; 85018; 85025; 85027; 85049; 85379; 85520; 85610; 85730; 86022; 86140; 86850; 86900; 86901; 86920; 87040; 87086; 92928; 93005; 93306; 93454; 93925; 94002; 94003; 94640; 94660; 94760; 99291; G0378; A9270-GY; C1725; C1769; C1874; C1887; C1894; C9113; C9600; G0480; J0171; J0282; J0330; J0360; J0456; J0461; J0692; J0696; J0883; J1100; J1630; J1644; J1652; J1815; J1940; J2060; J2250; J2270; J2920; J2930; J3010; J3246; J3370; J3475; J7030; J7040; J7042; J7050; J7060; J7070; J7120; P9016; Q9967; U0003